=== PATIENT | female | born 1930 | race Caucasian/White ===

== ENCOUNTER 2016-06-12 10:16 | Day surgery (SDC) | payer MEDICARE ==
--- NOTE | 2016-06-11 13:14 | PREOPHP ---
DATE OF ADMISSION: 06/04/2016 REASON FOR ADMISSION: The patient is being admitted electively tomorrow, 06/12/2016, by Dr. Dayron taveras for left foot surgery. HISTORY OF PRESENT ILLNESS: This 86-year-old female has an ulcer on her left foot over the first MT P joint. The area is infected and Dr. Hassan is going to perform an incision and drainage of the ar ea. The patient denies any chest pain, shortness of breath. CURRENT MEDICATIONS: Include the followin. Aspirin 81 mg a day, which was discontinued preoperatively. 2. Centrum Silver. 3. Doxazosin 1 mg at bedtime daily. 4. Ferrous sulfate 325 mg 3 times a day. 5. Omeprazole 40 mg a day. 6. Plendil 5 mg twice a day. 7. Glimepiride 1 mg once a day. 8. Metformin 500 mg 2 tablets twice a day. 9. Losartan HCT 100/25 daily. 10. Atorvastatin 20 mg a day. PAST MEDICAL HISTORY: Remarkable for hypertension, hyperlipidemia, type 2 diabetes mellitus, left b reast cancer status post lumpectomy, radiation and was on tamoxifen, but she stopped that. She has an iron deficiency anemia with Guaiac negative stool. She is on oral iron therapy. Left first foot MTP joint ulcer infection. ALLERGIES: PENICILLIN. PAST SURGICAL HISTORY: Bunionectomy, foot neuroma resection, left breast lumpectomy in June 2011. FAMILY HISTORY: Father , coronary artery disease. Mother , hypertension and conges tive heart failure. SOCIAL HISTORY: The patient does not smoke. She does drink alcohol socially. REVIEW OF SYSTEMS: CONSTITUTIONAL: No chills, no weight gain, no loss of appetite, no fever, no weakness, no weight lo ss, no fatigue. OPHTHALMOLOGIC: Negative. EARS, NOSE AND THROAT: Negative. CARDIORESPIRATORY: She denies any exertional chest pain, chest pressure, cough. She has no ankle s welling. GASTROINTESTINAL: She denies any indigestion, change in bowel habits. She denies any blood in her stools or black stools. Her bowel habits have been stable. NEUROLOGIC: Negative. UROLOGIC: Negative. PHYSICAL EXAMINATION: GENERAL: At this time reveals a well-developed female in no apparent distress. VITAL SIGNS: Temperature 97.3, blood pressure 130/70, heart rate 92. HEENT: Head normocephalic. EYES: Extraocular muscles intact. NOSE AND MOUTH: Normal. NECK: Supple. No neck vein distention. LUNGS: Clear to auscultation. HEART: Regular rhythm. No murmurs, gallops or rubs. ABDOMEN: Soft, nontender, no masses or megaly. EXTREMITIES: There is no peripheral edema. The left foot, she has a scabbed lesion with some drain age and erythema over the first MTP joint of her left foot. IMPRESSION: This patient is cleared for surgery. She does have an iron deficiency anemia. She flanagan s not have any history of GI bleeding. Her stool for occult blood was negative. She is on oral iro n; however, her blood count is not increasing. She may need to get IV iron after she has her surger y on her left foot. She may also need a complete GI workup. I will follow the patient along with y ou medically. Dictated By: GENARO SEPULVEDA MD, ND/YAHAIRA Conf#: [id number] DID#: [id number]
[~2016-06-12] VITALS: Ht 165.1 cm; Wt 75.2 kg
[2016-06-12] VITALS (14 sets, daily range): BP systolic 136–167; BP diastolic 58–92; PULSE 83–93; RESP 11–23; Ht 165.1 cm; Wt 75.2 kg
[2016-06-12] MEDS ORDERED: LOSA1TAB20 PO (10:54)
[2016-06-12] MEDS ORDERED: ATOR20TA38 PO (10:55)
[2016-06-12] MEDS ORDERED: ASCO500C7 PO (10:57)
[2016-06-12] MEDS ORDERED: METF-382 PO (10:57)
[2016-06-12] MEDS ORDERED: FER325 PO (10:59)
[2016-06-12] MEDS ORDERED: OMEP40CA6 PO (10:59)
[2016-06-12] MEDS ORDERED: FELO5TAB35 PO (10:59)
--- NOTE | 2016-06-12 11:20 | HPN ---
Date/Time of Note Date/Time of Note DATE: 06/12/16 TIME: 11:20 Interval H&P Admission Note Pt. seen H&P reviewed: No system changes TYE ANTHONY DPM Jun 12, 2016 11:20
[2016-06-12] MEDS ORDERED: BUPIVACAINE 0.5% (SDV) 30 ML INJ ONE (11:46)
[2016-06-12] MEDS ORDERED: POLYMYXIN/BACITRACIN 1L IRRIG ONE (11:46)
[2016-06-12] MEDS ORDERED: PROPOFOL 20 ML ONE (11:58)
[2016-06-12] MEDS ORDERED: CLINDAMYCIN 600 MG/D5W (PMX) 50 ML IVPB ONE (12:01)
[2016-06-12] MEDS ORDERED: LIDOCAINE 1% (STERILE-PAK) 30 ML INJ ONE (12:08)
[2016-06-12] MEDS ORDERED: LIDOCAINE 1% (MPF) 30 ML INJ INJ ONE (12:22)
[2016-06-12] MEDS ORDERED: LIDOCAINE 2% (MDV) 20 ML INJ INJ ONE (12:22)
[2016-06-12] MEDS ORDERED: BACITRACIN 50000 UNITS INJ IRR ONE (12:23)
[2016-06-12] MEDS ORDERED: FENTAnyl 50 MCG/ML VIAL IV PRN (13:00)
[2016-06-12] MEDS ORDERED: OXYCODONE/ACETAMINOPHEN (5/325) TAB PO PRN (13:00)
[2016-06-12] MEDS ORDERED: HYDROmorphONE (0.2 MG/ML) 10ML SYG IV PRN ×2 (13:00)
[2016-06-12] MEDS ORDERED: DIPHENHYDRAMINE 50 MG INJ IV PRN (13:00)
[2016-06-12] MEDS ORDERED: ONDANSETRON 4 MG INJ IV PRN (13:00)
[2016-06-12] MEDS ORDERED: ALBUTEROL 0.5% (NEB) 2.5 MG/0.5 ML AMP INH ONE (13:00)
[2016-06-12] MEDS ORDERED: MEPERIDINE 25 MG INJ IV PRN (13:00)
[2016-06-12] MEDS ORDERED: METOCLOPRAMIDE 10 MG INJ IV PRN (13:00)
[2016-06-12] MEDS ORDERED: HYDROCODONE/APAP (10/325) TAB PO PRN (13:30)
--- NOTE | 2016-06-12 21:28 | RADRPT ---
PROCEDURE: XR Left Foot. CLINICAL INDICATION: Left foot pain. Left foot ulcer. TECHNIQUE: Three views. Frontal, lateral, and oblique. COMPARISON: 04/27/2016. FINDINGS: There is no fracture or dislocation. There is a small region of lysis of the medial aspect of the first metatarsal distally which may ind icate osteomyelitis. There is no other lytic lesion. Well corticated erosion of the medial aspect of the proximal articular surface of the first proximal phalanx, once again noted. The articular surfaces are otherwise intact. There is no lytic or blastic lesion. There is no radiopaque foreign body. IMPRESSION: 1. Small region of lysis of the medial aspect of the first metatarsal distally which may indicate o steomyelitis. 2. A well corticated erosion of the medial aspect of the proximal articular surface of the first pr oximal phalanx is once again noted which may indicate gout. 3. No other new abnormality. RPTAT: QQ .Ed Pierre MD, MD Date Time Electronically viewed and signed by .Ed Pierre MD, on 06/12/2016 21:28 .R/
--- NOTE | 2016-06-13 16:50 | OPR ---
Date/Time of Note Date/Time of Note DATE: 06/13/16 TIME: 16:49 Operative Report Procedure Date: Jun 12, 2016 Preoperative Diagnosis Open wound left foot Severe bunion left foot Pain left foot Postoperative Diagnosis Open wound left foot Severe bunion left foot Pain left foot Operation Performed Surgical debridement of left foot first MPJ Excision of chronic open wound of left foot Bone biopsy left foot Joint debridement left first MPJ Surgeon: TYE ANTHONY DPM Anesthesia: MAC Estimated Blood Loss: minimal Specimens Bone tissue culture Wound culture Specimen including open chronic wound Complications: None Pt Condition Post Procedure: stable Disposition: PACU Indications There is a pleasant 86-year-old female patient has been suffering with a chronic open wound of the left foot at the first MPJ for several months. The condition has gotten worse. She was seen at the amputation prevention center and her condition was surgical debridement with exploration of the first metatarsal phalangeal joint including bone biopsy to rule out osteomyelitis. Risks and complications of this type surgery was discussed patient in great detail. Recent complication discussed, include but are not limited to postoperative infection, failure of surgery to correct the problem, need for additional surgical procedures, deep venous thrombosis, limb loss and loss of life. No guarantee or warranty was given or implied as the optimal procedure either in verbal or written form. Informed consent was signed, obtained and placed in the chart. Procedure Description The patient was seen in the preoperative area. Proposed surgery was discussed with patient in great detail. Risks and complications were discussed with patient. An informed consent was obtained. All questions were answered. The patient was then taken to the operating room and was placed on the operating table in supine position. All bony prominences were padded properly. A timeout was called by the circulating nurse and agreed upon by all members of the operating room. The patient was placed under IV sedation and I injected the left foot with 15 cc of a 2% lidocaine plain and 0.5% Marcaine plain solution. The left foot was scrubbed, prepped and draped in the usual aseptic manner. Attention was directed to the left foot first MPJ. Open wound noted. Two semielliptical incisions were made surrounding the wound using a #15 blade. The wound was excised completely. Next, there was significant drainage from the first MPJ with white exudate which appeared to be chalky in nature. Some of this exudate was cultured. Next, bone was removed and cultured as well. The wound was flushed with copious amounts of sterile normal saline. Further amounts of white exudate was removed and passed to the back table. Next, subcutaneous layer was closed using 3-0 Vicryl suture and the skin was closed using 2-0 nylon in simple suture technique. Sterile dressing was applied to the left foot. The patient tolerated the procedure and anesthesia well. She was transferred to recovery room with vital signs stable and vascular status intact to the left lower extremity. Patient will be sent home after postoperative monitoring. Postoperative orders have been written. Partial weightbearing with postop shoe and walker allowed. Patient will be seen in the clinic in 1 week. Prescription for pain medication was submitted to the pharmacy. TYE ANTHONY DPM Jun 13, 2016 16:50
== END 2016-06-12 14:45 | disposition home or self-care (01) ==
LOC: SDS 10:16
PROVIDERS: ATTEND Podiatrist Foot & Ankle Surgery
DX: L97.529 Non-pressure chronic ulcer of other part of left foot with unspecified severity (principal); M89.8X7 Other specified disorders of bone, ankle and foot; M21.612 Bunion of left foot; I10 Essential (primary) hypertension; E78.5 Hyperlipidemia, unspecified; E11.9 Type 2 diabetes mellitus without complications; D50.9 Iron deficiency anemia, unspecified
CPT/HCPCS: 82962; 87070; 87102; 87116; 88304; 88311

== ENCOUNTER 2018-09-23 05:22 | Inpatient (IN) | payer MEDICARE, OTHER ==
[2018-09-23] VITALS (17 sets, daily range): BP systolic 106–145; BP diastolic 56–115; PULSE 93–105; RESP 16–25; Ht 165.1 cm; Wt 76.0 kg
[~2018-09-23] VITALS: Ht 165.1 cm; Wt 76.0 kg
[~2018-09-23 05:22] MED LIST: ASCO500C7 PO; ATOR20TA38 PO; FELO5TAB35 PO; FER325 PO; LOSA1TAB25 PO; METF500T24 PO; OMEP40CA6 PO
[2018-09-23] MEDS ORDERED: NITROGLYCERIN 2% 1 GM OINT PKT TD STA (06:34)
[2018-09-23] MEDS ORDERED: D10/0.45% NACL + KCL 40 MEQ 1,000 ML IV SCH (06:36)
[2018-09-23] MEDS ORDERED: DEXTROSE 10%/0.45% NACL 1,000 ML IV SCH (06:36)
[2018-09-23] MEDS ORDERED: SOD CHLORIDE 0.9% 1,000 ML IV SCH (06:36)
[2018-09-23] MEDS ORDERED: D10/0.45% NACL + KCL 30 MEQ 1,000 ML IV SCH (06:36)
[2018-09-23] MEDS ORDERED: NS + KCL 40 MEQ 1,000 ML IV SCH (06:36)
[2018-09-23] MEDS ORDERED: NS + KCL 30 MEQ 1,000 ML IV SCH (06:36)
[2018-09-23] MEDS ORDERED: FUROSEMIDE 40 MG INJ IV ONE (07:00)
[2018-09-23] MEDS ORDERED: NITROGLYCERIN (SL) 0.4 MG TAB SL PRN (07:00)
[2018-09-23] MEDS ORDERED: LACTATED RINGER'S 750 ML IV ONE (07:00)
[2018-09-23] MEDS ORDERED: INSULIN REGULAR, HUMAN 100 UNIT in SOD CHLORIDE 0.9% 100 ML IV SCH ×2 (07:00)
[2018-09-23] MEDS ORDERED: DEXTROSE 50% 50 ML SYRINGE IV PRN ×4 (07:00→13:30)
--- NOTE | 2018-09-23 08:23 | ERD ---
ER Documentation Chief Complaint Chief Complaint [id number],from home,SOB,CP HPI Patient is an 88-year-old female with hypertension and diabetes who presents with shortness of breath. The patient also has chest pain. She started with symptoms about 1 month ago but yesterday and today the shortness of breath was much worse. She gets short of breath with minimal exertion. She has midsternal chest pain which she describes as a dull pain which is constant. She was given aspirin and nitro in by paramedics and she was brought in by ambulance. Upon review of old medical records this is the patient's first visit to the emergency department. Her primary doctor is Dr. Portillo. 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 ROS All systems reviewed and are negative except as per history of present illness. Medications Home Meds Reported Medications Omeprazole* (Omeprazole*) 40 Mg Capsule.dr, 40 MG PO DAILY, #30 CAP 06/12/16 Ferrous Sulfate* (Ferrous Sulfate*) 325 Mg Tabec, 325 MG PO DAILY, TAB 06/12/16 Felodipine* (Felodipine*) 5 Mg Tab.sr.24h, 5 MG PO DAILY, TAB.SA 06/12/16 Ascorbic Acid* (Vitamin C*) 500 Mg Capsule.sa, 500 MG PO DAILY, CAP 06/12/16 Metformin Hcl* (Metformin Hcl*) 500 Mg Tablet, 2000 MG PO WITH BREAKFAST DINNE, #30 TAB 06/12/16 Atorvastatin Calcium* (Atorvastatin Calcium*) 20 Mg Tablet, 20 MG PO QHS, #30 TAB 06/12/16 Losartan-Hydrochlorothiazide (Losartan-HCTZ) 100-25 Mg Tab, 1 TAB PO DAILY, TAB 06/12/16 Allergies Allergies: Coded Allergies: Penicillins (Verified Allergy, Severe, SWELLING, 06/12/16) PMhx/Soc History of Surgery: Yes (LEFT FOOT BINIONECTOMY, LEFT BREAST LUMPECTOMY) Anesthesia Reaction: No Hx Neurological Disorder: No Hx Respiratory Disorders: No Hx Cardiac Disorders: Yes (HTN,HLP) Hx Psychiatric Problems: No Hx Miscellaneous Medical Probl: Yes (LEFT FOOT ULCER 1ST MTP JOINT) Hx Alcohol Use: Yes (OCCASIONAL) Hx Substance Use: No Hx Tobacco Use: No Smoking Status: Never smoker FmHx Family History: coronary disease Physical Exam Vitals Vital Signs Date Temp Pulse Resp B/P (MAP) Pulse Ox O2 O2 Flow FiO2 Time Delivery Rate 09/23/18 89 20 116/58 94 High Flow 07:30 (77) 09/23/18 97.4 81 19 122/59 93 Non 15.0 06:30 (80) Rebreather 09/23/18 Non 12.0 05:25 Rebreather 09/23/18 Non 12 05:25 Rebreather 09/23/18 97.5 89 19 110/51 94 05:24 (70) Physical Exam Const: No acute distress Head: Atraumatic Eyes: Normal Conjunctiva ENT: Normal External Ears, Nose and Mouth. Neck: Full range of motion. No meningismus. Resp: Crackles in the bases bilaterally Cardio: Regular rate and rhythm, no murmurs Abd: Soft, non tender, non distended. Normal bowel sounds Skin: No petechiae or rashes Back: No midline or flank tenderness Ext: 1+ pitting edema bilaterally Neur: Awake and alert Psych: Normal Mood and Affect Result Diagram: 09/23/1834 09/23/1834 Results 24 hrs Laboratory Tests Test 09/23/18 05:28 09/23/18 05:34 09/23/18 06:25 09/23/18 07:35 Bedside Glucose 486 mg/dL 411 mg/dL White Blood Count 11.0 10^3/ul Red Blood Count 3.43 10^6/ul Hemoglobin 9.9 g/dl Hematocrit 30.7 % Mean Corpuscular 89.5 fl Volume Mean Corpuscular 28.9 pg Hemoglobin Mean Corpuscular 32.2 g/dl Hemoglobin Concent Red Cell 13.2 % Distribution Width Platelet Count 267 10^3/UL Mean Platelet 12.1 fl Volume Immature 0.500 % Granulocytes % Neutrophils % 67.4 % Lymphocytes % 23.6 % Monocytes % 5.7 % Eosinophils % 2.4 % Basophils % 0.4 % Nucleated Red Blood 0.0 /100WBC Cells % Immature 0.050 10^3/ul Granulocytes # Neutrophils # 7.4 10^3/ul Lymphocytes # 2.6 10^3/ul Monocytes # 0.6 10^3/ul Eosinophils # 0.3 10^3/ul Basophils # 0.0 10^3/ul Nucleated Red Blood 0.0 10^3/ul Cells # Sodium Level 135 mmol/L Potassium Level 4.8 mmol/L Chloride Level 103 mmol/L Carbon Dioxide 16 mmol/L Level Anion Gap 16 Blood Urea Nitrogen 54 mg/dl Creatinine 1.69 mg/dl Est Glomerular mL/min Filtrat Rate mL/min Glucose Level 483 mg/dl Hemoglobin A1c 7.8 % Calcium Level 9.1 mg/dl Total Bilirubin 0.6 mg/dl Direct Bilirubin 0.00 mg/dl Indirect Bilirubin 0.6 mg/dl Aspartate Amino 131 IU/L Transf (AST/SGOT) Alanine 135 IU/L Aminotransferase (A LT/SGPT) Alkaline 134 IU/L Phosphatase Troponin I 0.058 ng/ml B-Type Natriuretic 1450 PG/ML Peptide Total Protein 6.8 g/dl Albumin 4.0 g/dl Globulin 2.80 g/dl Albumin/Globulin 1.42 Ratio Lipase 99 U/L Prothrombin Time 13.6 Sec Prothrombin Time 1.1 Ratio INR International 1.03 Normalized Ratio Activated 20.0 Sec Partial Thromboplas t Time Current Medications Medications Dose Sig/Ivy Start Time Status Last (Trade) Ordered Route PRN Stop Time Admin Dose Reason Admin Furosemide 40 mg ONCE ONCE 09/23/18 DC 09/23/18 (Lasix) IV 07:00 06:47 09/23/18 07:01 1 inch ONCE STAT 09/23/18 DC 09/23/18 Nitroglycerin TD 06:34 06:47 09/23/18 06:36 (Nitroglyceri n 2% Oint) 1 tab Q5M UP TO 3 09/23/18 Nitroglycerin DOSES PRN 07:00 SL .CHEST (Nitroglyceri PAIN n (Sl Tab) 0.4 Mg) Potassium 1,000 ml @ Q0M IV 09/23/18 Chloride/Sodi 0 mls/hr 06:36 um Chloride Potassium 1,000 ml @ Q0M IV 09/23/18 Chloride/Dext 0 mls/hr 06:36 carlos/ Sod Cl Potassium 1,000 ml @ Q0M IV 09/23/18 Chloride/Sodi 0 mls/hr 06:36 um Chloride Potassium 1,000 ml @ Q0M IV 09/23/18 Chloride/Dext 0 mls/hr 06:36 carlos/ Sod Cl Sodium 1,000 ml @ Q0M IV 09/23/18 Chloride 0 mls/hr 06:36 1,000 ml @ Q0M IV 09/23/18 Dextrose/Sodi 0 mls/hr 06:36 um Chloride Insulin 101 ml @ ER DKA 09/23/18 Human 7.58 mls/hr PROTOCOL IV 07:00 Regular 100 unit/ Sodium Chloride Lactated 750 ml @ ONCE ONCE 09/23/18 DC 09/23/18 Ringer's 750 mls/hr IV 07:00 07:13 09/23/18 07:59 HYPOGLYCEM 09/23/18 Miscellaneous HYPOGLYCEMIA PROTOCOL PRN 07:00 TREATMENT XX Information .HYPOGLYCEMIA (* PROTOCOL Miscellaneous Pharmacy Order) Dextrose 50 ml Q15M PRN 09/23/18 (D50w IV 07:00 Syringe) .DECREASED GLUCOSE Dextrose 25 ml Q15M PRN 09/23/18 (D50w IV 07:00 Syringe) .DECREASED GLUCOSE Procedures/MDM Chest X-ray 1V Interpreted by me: Soft Tissue: No acute abnormalities Bones: No acute abnormalities Mediastinum/Cardiac Silhouette/Lungs: Pulmonary edema EKG read by me: Rate/Rhythm: Regular rate and rhythm at a normal rate Intervals: Normal Impression: ST depressions in the inferior and lateral leads concerning for ischemia Patient is a 88-year-old female who presents with chest pain and shortness of breath. She had an abnormal EKG which is concerning for ischemia. She was given aspirin and nitroglycerin as well as Lasix. She was also found to have glucose of 483 with a low bicarb of 16 and an elevated anion gap concerning for diabetic ketoacidosis. I spoke with Dr. Portillo who will admit the patient to a intensive care unit bed. The patient will also have a cardiology consult. Initial troponin is within normal limits. She was started on the DKA protocol with insulin drip. I am concerned about giving her fluids however given her pulmonary edema. She was placed on high flow nasal cannula oxygen as well to help with PEEP effect as well as oxygenation. Critical Care: Time: 35 minutes excluding all billable procedures. Treatments/Evaluations: Close monitoring and treatment of unstable vital signs, cardiorespiratory, and neurologic status, while maintaining tight balance of fluid, respiratory, and cardiac interventions. Departure Diagnosis: Primary Impression: DKA (diabetic ketoacidoses) Diabetes mellitus type: other specified (including HARISH) Diabetes mellitus complication detail: without coma Qualified Codes: E13.10 - Other spe cified diabetes mellitus with ketoacidosis without coma Additional Impressions: Shortness of breath Pulmonary edema Chronicity: acute Qualified Codes: J81.0 - Acute pulmonary edema Chest pain Chest pain type: unspecified Qualified Codes: R07.9 - Chest pain, unspecified Condition: Critical CINTHIA CAUSEY MD Sep 23, 2018 08:23
[2018-09-23] MEDS ORDERED: LOSA1TAB25 PO (09:45)
[2018-09-23] MEDS ORDERED: ATOR20TA38 PO (09:45)
[2018-09-23] MEDS ORDERED: METF500T24 PO (09:46)
[2018-09-23] MEDS ORDERED: ASCO500C7 PO (09:47)
[2018-09-23] MEDS ORDERED: FER325 PO (09:48)
[2018-09-23] MEDS ORDERED: OMEP40CA6 PO (09:48)
[2018-09-23] MEDS ORDERED: FELO5TAB35 PO (09:48)
[2018-09-23] MEDS ORDERED: INSULIN LISPRO 100 UNIT/ML VIAL SC ONE (10:30)
[2018-09-23] MEDS ORDERED: ACCU-CHEK XX ONE (10:30)
--- NOTE | 2018-09-23 12:00 | CONS ---
Assessment/Plan Cardiology Heart Failure Type: Acute Assessment/Plan Assessment/Plan (Daily) Impression and Recommendations: # SOB- consistent with acute CHF. Possible systolic in nature. # cough # CP although not tytpical pt does have RF with her age, DM, HTN, HL. Probable ACS with mildly elevated troponin # CHF based on hx and exam # DM OOC with component of DKA # CYRUS ? CKD # anemia -not clear if this is new # HTN # HL # advanced age >> iv lasix for diuresis watching renal function >> Lovenox >> ASA, high dose statin, low dose BB >> Echo >> trend troponin >> o2 >> nitropaste for now >> further recs including possible angio based on hospital course, renal function, echo findings, and anemia status > will follow Consultation Date/Type/Reason Admit Date/Time Date of Consultation: Sep 23, 2018 Type of Consult Cardiology Reason for Consultation SOB Date/Time of Note DATE: 09/23/18 TIME: 11:50 Hx of Present Illness This is a pleasant 88 yo woman with a hx/o DM and HTN and HL without prior cardiac history. She apparently started feeling very weak and SOB today and presented to the ED with SOB, hypoxia, findings c/w CHF. She has had increased edema in her legs. There is vague discomfort in her chest and epigastric area. She is found to be mildly anemic. She is more comfortable at the moment but still with SOB. Her BP has been stable but she is in DKA based on her labs. She states she has been compliant with her meds . Constitutional: other (weak) Eyes: no complaints ENT: no complaints Respiratory: cough, shortness of breath Cardiovascular: chest pain, edema Gastrointestinal: no complaints Genitourinary: no complaints Musculoskeletal: no complaints, back pain Skin: no complaints Neurologic: confusion Endocrine: no complaints Lymphatic: no complaints Psychological: anxiety Past Medical History Home Meds Reported Medications Omeprazole* (Omeprazole*) 40 Mg Capsule.dr, 40 MG PO DAILY, #30 CAP 09/23/18 Ferrous Sulfate* (Ferrous Sulfate*) 325 Mg Tabec, 325 MG PO TID, TAB 09/23/18 Felodipine* (Felodipine*) 5 Mg Tab.sr.24h, 5 MG PO BID, TAB.SA 09/23/18 Ascorbic Acid* (Vitamin C*) 500 Mg Capsule.sa, 500 MG PO DAILY, CAP 09/23/18 Metformin Hcl* (Metformin Hcl*) 500 Mg Tablet, 2000 MG PO WITH BREAKFAST DINNE, #60 TAB 09/23/18 Atorvastatin Calcium* (Atorvastatin Calcium*) 20 Mg Tablet, 20 MG PO QHS, #30 TAB 09/23/18 Losartan-Hydrochlorothiazide (Losartan-HCTZ) 100-25 Mg Tab, 1 TAB PO DAILY, TAB 09/23/18 Discontinued Reported Medications Omeprazole* (Omeprazole*) 40 Mg Capsule.dr, 40 MG PO DAILY, #30 CAP 06/12/16 Ferrous Sulfate* (Ferrous Sulfate*) 325 Mg Tabec, 325 MG PO DAILY, TAB 06/12/16 Felodipine* (Felodipine*) 5 Mg Tab.sr.24h, 5 MG PO DAILY, TAB.SA 06/12/16 Ascorbic Acid* (Vitamin C*) 500 Mg Capsule.sa, 500 MG PO DAILY, CAP 06/12/16 Metformin Hcl* (Metformin Hcl*) 500 Mg Tablet, 2000 MG PO WITH BREAKFAST DINNE, #30 TAB 06/12/16 Atorvastatin Calcium* (Atorvastatin Calcium*) 20 Mg Tablet, 20 MG PO QHS, #30 TAB 06/12/16 Losartan-Hydrochlorothiazide (Losartan-HCTZ) 100-25 Mg Tab, 1 TAB PO DAILY, TAB 06/12/16 Medications Current Medications Nitroglycerin (Nitroglycerin (Sl Tab) 0.4 Mg) 1 tab Q5M UP TO 3 DOSES PRN SL .CHEST PAIN; Start 09/23/18 at 07:00 Potassium Chloride/Sodium Chloride 1,000 ml @ 0 mls/hr Q0M IV ; Start 09/23/18 at 06:36 Potassium Chloride/Dextrose/ Sod Cl 1,000 ml @ 0 mls/hr Q0M IV ; Start 09/23/18 at 06:36 Potassium Chloride/Sodium Chloride 1,000 ml @ 0 mls/hr Q0M IV Last administered on 09/23/18at 08:40; Admin Dose 250 MLS/HR; Start 09/23/18 at 06:36 Potassium Chloride/Dextrose/ Sod Cl 1,000 ml @ 0 mls/hr Q0M IV ; Start 09/23/18 at 06:36 Sodium Chloride 1,000 ml @ 0 mls/hr Q0M IV ; Start 09/23/18 at 06:36 Dextrose/Sodium Chloride 1,000 ml @ 0 mls/hr Q0M IV ; Start 09/23/18 at 06:36 Insulin Human Regular 100 unit/ Sodium Chloride 101 ml @ 7.58 mls/hr ER DKA P ROTOCOL IV Last administered on 09/23/18at 08:42; Admin Dose 7.5 MLS/HR; Start 09/23/18 at 07:00 Miscellaneous Information (* Miscellaneous Pharmacy Order) HYPOGLYCEMIA TREATMENT HYPOGLYCEM PROTOCOL PRN XX .HYPOGLYCEMIA PROTOCOL; Start 09/23/18 at 07:00 Dextrose (D50w Syringe) 50 ml Q15M PRN IV .DECREASED GLUCOSE; Start 09/23/18 at 07:00 Dextrose (D50w Syringe) 25 ml Q15M PRN IV .DECREASED GLUCOSE; Start 09/23/18 at 07:00 Allergies: Coded Allergies: Penicillins (Verified Allergy, Severe, SWELLING, 09/23/18) Family History Significant Family History: no pertinent family hx Social History Alcohol Use: none Smoking Status: Never smoker Drug Use: none Exam/Review of Systems Vital Signs Vitals Vital Signs Date Temp Pulse Resp B/P (MAP) Pulse Ox O2 O2 Flow FiO2 Time Delivery Rate 09/23/18 95 24 128/67 88 High Flow 10:46 (87) 09/23/18 100 10:33 09/23/18 97.4 15.0 06:30 Exam Constitutional: alert, oriented, well developed Psych: anxiety Head: normocephalic Eyes: nl conjunctiva ENMT: nl external ears & nose Neck: supple, jvd (10cm) Respiratory: crackles/rales (minimal rales at bases) Cardiovascular: other (regular but tachy) Gastrointestinal: soft Musculoskeletal: nl extremities to inspection Extremities: normal pulses 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 Skin: nl turgor Labs Result Diagram: 09/23/18 0534 09/23/18 1049 Results 24hrs Laboratory Tests Test 09/23/18 05:28 09/23/18 05:34 09/23/18 06:25 09/23/18 07:35 Bedside Glucose 486 *H 411 *H White Blood 11.0 H Count Red Blood Count 3.43 L Hemoglobin 9.9 L Hematocrit 30.7 L Mean Corpuscular 89.5 Volume Mean Corpuscular 28.9 L Hemoglobin Mean Corpuscular 32.2 Hemoglobin Pili nt Red Cell 13.2 Distribution Width Platelet Count 267 Mean Platelet 12.1 H Volume Immature 0.500 H Granulocytes % Neutrophils % 67.4 Lymphocytes % 23.6 Monocytes % 5.7 Eosinophils % 2.4 Basophils % 0.4 Nucleated Red 0.0 Blood Cells % Immature 0.050 H Granulocytes # Neutrophils # 7.4 Lymphocytes # 2.6 Monocytes # 0.6 Eosinophils # 0.3 Basophils # 0.0 Nucleated Red 0.0 Blood Cells # Sodium Level 135 Potassium Level 4.8 Chloride Level 103 Carbon Dioxide 16 L Level Anion Gap 16 H Blood Urea 54 H Nitrogen Creatinine 1.69 H Est Glomerular Filtrat Rate mL/min Glucose Level 483 *H Hemoglobin A1c 7.8 H Calcium Level 9.1 Total Bilirubin 0.6 Direct Bilirubin 0.00 Indirect 0.6 Bilirubin Aspartate Amino 131 H Transf (AST/SGOT ) Alanine 135 H Aminotransferase (ALT/SGPT) Alkaline 134 H Phosphatase Troponin I 0.058 B-Type 1450 H Natriuretic Peptide Total Protein 6.8 Albumin 4.0 Globulin 2.80 Albumin/Globulin 1.42 Ratio Lipase 99 Prothrombin Time 13.6 Prothrombin Time 1.1 Ratio INR 1.03 International Normalized Ratio Activated 20.0 L Partial Thrombop last Time Test 09/23/18 08:29 09/23/18 08:36 09/23/18 08:38 09/23/18 09:32 Sodium Level 135 Potassium Level 5.0 Chloride Level 101 Carbon Dioxide 23 Level Anion Gap 11 Blood Urea 55 H Nitrogen Creatinine 1.64 H Est Glomerular Filtrat Rate mL/min Glucose Level 436 *H Calcium Level 9.2 Phosphorus Level 4.5 Magnesium Level 2.0 Blood Gas Blood venous Specimen Source Arterial Blood 09/23/2018 8:46: Date Drawn 30 AM Arterial Blood VENOUS LINE Gas Puncture Site Nash Test N/A Venous Blood pH 7.404 Venous Blood 32.4 L pCO2 (Temp Corrected) Venous Blood pO2 40.2 H (Temp Corrected) Venous Blood 19.8 L HCO3 Venous Blood 75.0 Oxygen Saturation Venous Blood -4.1 Base Excess Venous Blood 11.4 Total Hemoglobin Venous Blood 74.9 Oxyhemoglobin Venous Blood 0.1 Methemoglobin Carboxyhemoglobi 0 n Blood Gas 37.0 Temperature Blood Gas HFNC Modality FiO2 100.0 Blood Gas RT Notified Whom Blood Gas 09/23/2018 8:57: Notified Time 09 AM Bedside Glucose 410 *H Urine Color YELLOW Urine Clarity CLEAR Urine pH 5.0 Urine Specific 1.011 [place] Urine Ketones NEGATIVE Urine Nitrite NEGATIVE Urine Bilirubin NEGATIVE Urine NEGATIVE Urobilinogen Urine Leukocyte 2+ H Esterase Urine 0 Microscopic RBC Urine 9 H Microscopic WBC Urine Hemoglobin NEGATIVE Urine Glucose 1+ H Urine Total NEGATIVE Protein Test 09/23/18 09:33 09/23/18 10:15 09/23/18 10:36 09/23/18 10:49 Bedside Glucose 404 *H 365 H Blood Gas Blood venous Specimen Source Arterial Blood 09/23/2018 10:45 Date Drawn :17 AM Arterial Blood VENOUS LINE Gas Puncture Site Nash Test N/A Venous Blood pH 7.375 Venous Blood 33.8 L pCO2 (Temp Corrected) Venous Blood pO2 32.5 H (Temp Corrected) Venous Blood 19.3 L HCO3 Venous Blood 59.7 Oxygen Saturation Venous Blood -5.1 L Base Excess Venous Blood 11.5 Total Hemoglobin Venous Blood 59.3 Oxyhemoglobin Venous Blood 0.3 Methemoglobin Carboxyhemoglobi 0.3 n Blood Gas 37.0 Temperature Blood Gas HFNC Modality FiO2 100.0 Blood Gas TM Notified Whom Blood Gas 09/23/2018 10:56 Notified Time :09 AM Sodium Level 136 Potassium Level 4.5 Chloride Level 103 Carbon Dioxide 21 Level Anion Gap 12 Blood Urea 51 H Nitrogen Creatinine 1.62 H Est Glomerular Filtrat Rate mL/min Glucose Level 360 H Calcium Level 9.3 Phosphorus Level 3.8 Magnesium Level 2.0 Creatine Kinase 66 Creatine Kinase 3.4 Index Creatinine 2.23 Kinase MB (Mass) Troponin I 0.631 *H Test 09/23/18 11:39 Bedside Glucose 337 H Medications Medications Current Medications Nitroglycerin (Nitroglycerin (Sl Tab) 0.4 Mg) 1 tab Q5M UP TO 3 DOSES PRN SL .CHEST PAIN; Start 09/23/18 at 07:00 Potassium Chloride/Sodium Chloride 1,000 ml @ 0 mls/hr Q0M IV ; Start 09/23/18 at 06:36 Potassium Chloride/Dextrose/ Sod Cl 1,000 ml @ 0 mls/hr Q0M IV ; Start 09/23/18 at 06:36 Potassium Chloride/Sodium Chloride 1,000 ml @ 0 mls/hr Q0M IV Last administered on 09/23/18at 08:40; Admin Dose 250 MLS/HR; Start 09/23/18 at 06:36 Potassium Chloride/Dextrose/ Sod Cl 1,000 ml @ 0 mls/hr Q0M IV ; Start 09/23/18 at 06:36 Sodium Chloride 1,000 ml @ 0 mls/hr Q0M IV ; Start 09/23/18 at 06:36 Dextrose/Sodium Chloride 1,000 ml @ 0 mls/hr Q0M IV ; Start 09/23/18 at 06:36 Insulin Human Regular 100 unit/ Sodium Chloride 101 ml @ 7.58 mls/hr ER DKA PROTOCOL IV Last administered on 09/23/18at 08:42; Admin Dose 7.5 MLS/HR; Start 09/23/18 at 07:00 Miscellaneous Information (* Miscellaneous Pharmacy Order) HYPOGLYCEMIA TREATMENT HYPOGLYCEM PROTOCOL PRN XX .HYPOGLYCEMIA PROTOCOL; Start 09/23/18 at 07:00 Dextrose (D50w Syringe) 50 ml Q15M PRN IV .DECREASED GLUCOSE; Start 09/23/18 at 07:00 Dextrose (D50w Syringe) 25 ml Q15M PRN IV .DECREASED GLUCOSE; Start 09/23/18 at 07:00 NIANA MANN MD Sep 23, 2018 12:00
--- NOTE | 2018-09-23 12:56 | HP ---
Date/Time of Note Date/Time of Note DATE: 09/23/18 TIME: 12:55 Assessment/Plan VTE Prophylaxis Pharmacological prophylaxis: LMWH Lines/Catheters IV Catheter Type (from Nrsg): Peripheral IV Assessment/Plan Assessment/Plan H and P dict pt admit with chest pain, cough, sob and evid chf with inc troponin rev with anthony, yamilet Romano, course to determine aggressiveness, anemia has inc and mild renal insuff noted likely pre renal. Result Diagram: 09/23/18 0534 09/23/18 1049 Results 24hrs Laboratory Tests Test 09/23/18 05:28 09/23/18 05:34 09/23/18 06:25 09/23/18 07:35 Bedside Glucose 486 *H 411 *H White Blood 11.0 H Count Red Blood Count 3.43 L Hemoglobin 9.9 L Hematocrit 30.7 L Mean Corpuscular 89.5 Volume Mean Corpuscular 28.9 L Hemoglobin Mean Corpuscular 32.2 Hemoglobin Pili nt Red Cell 13.2 Distribution Width Platelet Count 267 Mean Platelet 12.1 H Volume Immature 0.500 H Granulocytes % Neutrophils % 67.4 Lymphocytes % 23.6 Monocytes % 5.7 Eosinophils % 2.4 Basophils % 0.4 Nucleated Red 0.0 Blood Cells % Immature 0.050 H Granulocytes # Neutrophils # 7.4 Lymphocytes # 2.6 Monocytes # 0.6 Eosinophils # 0.3 Basophils # 0.0 Nucleated Red 0.0 Blood Cells # Sodium Level 135 Potassium Level 4.8 Chloride Level 103 Carbon Dioxide 16 L Level Anion Gap 16 H Blood Urea 54 H Nitrogen Creatinine 1.69 H Est Glomerular Filtrat Rate mL/min Glucose Level 483 *H Hemoglobin A1c 7.8 H Calcium Level 9.1 Total Bilirubin 0.6 Direct Bilirubin 0.00 Indirect 0.6 Bilirubin Aspartate Amino 131 H Transf (AST/SGOT ) Alanine 135 H Aminotransferase (ALT/SGPT) Alkaline 134 H Phosphatase Troponin I 0.058 B-Type 1450 H Natriuretic Peptide Total Protein 6.8 Albumin 4.0 Globulin 2.80 Albumin/Globulin 1.42 Ratio Lipase 99 Prothrombin Time 13.6 Prothrombin Time 1.1 Ratio INR 1.03 International Normalized Ratio Activated 20.0 L Partial Thrombop last Time Test 09/23/18 08:29 09/23/18 08:36 09/23/18 08:38 09/23/18 09:32 Sodium Level 135 Potassium Level 5.0 Chloride Level 101 Carbon Dioxide 23 Level Anion Gap 11 Blood Urea 55 H Nitrogen Creatinine 1.64 H Est Glomerular Filtrat Rate mL/min Glucose Level 436 *H Calcium Level 9.2 Phosphorus Level 4.5 Magnesium Level 2.0 Blood Gas Blood venous Specimen Source Arterial Blood 09/23/2018 8:46: Date Drawn 30 AM Arterial Blood VENOUS LINE Gas Puncture Site Nash Test N/A Venous Blood pH 7.404 Venous Blood 32.4 L pCO2 (Temp Corrected) Venous Blood pO2 40.2 H (Temp Corrected) Venous Blood 19.8 L HCO3 Venous Blood 75.0 Oxygen Saturation Venous Blood -4.1 Base Excess Venous Blood 11.4 Total Hemoglobin Venous Blood 74.9 Oxyhemoglobin Venous Blood 0.1 Methemoglobin Carboxyhemoglobi 0 n Blood Gas 37.0 Temperature Blood Gas HFNC Modality FiO2 100.0 Blood Gas RT Notified Whom Blood Gas 09/23/2018 8:57: Notified Time 09 AM Bedside Glucose 410 *H Urine Color YELLOW Urine Clarity CLEAR Urine pH 5.0 Urine Specific 1.011 [place] Urine Ketones NEGATIVE Urine Nitrite NEGATIVE Urine Bilirubin NEGATIVE Urine NEGATIVE Urobilinogen Urine Leukocyte 2+ H Esterase Urine 0 Microscopic RBC Urine 9 H Microscopic WBC Urine Hemoglobin NEGATIVE Urine Glucose 1+ H Urine Total NEGATIVE Protein Test 09/23/18 09:33 09/23/18 10:15 09/23/18 10:36 09/23/18 10:49 Bedside Glucose 404 *H 365 H Blood Gas Blood venous Specimen Source Arterial Blood 09/23/2018 10:45 Date Drawn :17 AM Arterial Blood VENOUS LINE Gas Puncture Site Nash Test N/A Venous Blood pH 7.375 Venous Blood 33.8 L pCO2 (Temp Corrected) Venous Blood pO2 32.5 H (Temp Corrected) Venous Blood 19.3 L HCO3 Venous Blood 59.7 Oxygen Saturation Venous Blood -5.1 L Base Excess Venous Blood 11.5 Total Hemoglobin Venous Blood 59.3 Oxyhemoglobin Venous Blood 0.3 Methemoglobin Carboxyhemoglobi 0.3 n Blood Gas 37.0 Temperature Blood Gas HFNC Modality FiO2 100.0 Blood Gas TM Notified Whom Blood Gas 09/23/2018 10:56 Notified Time :09 AM Sodium Level 136 Potassium Level 4.5 Chloride Level 103 Carbon Dioxide 21 Level Anion Gap 12 Blood Urea 51 H Nitrogen Creatinine 1.62 H Est Glomerular Filtrat Rate mL/min Glucose Level 360 H Calcium Level 9.3 Phosphorus Level 3.8 Magnesium Level 2.0 Creatine Kinase 66 Creatine Kinase 3.4 Index Creatinine 2.23 Kinase MB (Mass) Troponin I 0.631 *H Test 09/23/18 11:39 Bedside Glucose 337 H HPI/ROS Admit Date/Time Admit Date/Time PMH/Family/Social Past Medical History Medications Current Medications Furosemide (Lasix) 40 mg BID DIURETICS IV ; Start 09/23/18 at 18:00; Status UNV Atorvastatin Calcium (Lipitor) 80 mg HS PO ; Start 09/23/18 at 21:00; Status UNV Metoprolol Tartrate (Lopressor) 25 mg BID PO ; Start 09/23/18 at 12:30; Status UNV Enoxaparin Sodium (Lovenox) 75 mg Q24H SC ; Start 09/23/18 at 12:30; Status UNV Nitroglycerin (Nitroglycerin 2% Oint) 1 inch Q8 TD ; Start 09/23/18 at 14:00; Status UNV Aspirin (Halfprin) 81 mg DAILY PO ; Start 09/24/18 at 09:00; Status UNV IV Flush (NS 3 ml) 3 ml PER PROTOCOL IV ; Start 09/23/18 at 13:00; Status UNV Lorazepam (Ativan) 0.5 mg Q8H PRN PO .ANXIETY; Start 09/23/18 at 13:00; Status UNV Ondansetron HCl (Zofran Inj) 4 mg Q6H PRN IV NAUSEA/VOMITING; Start 09/23/18 at 13:00; Status UNV Acetaminophen (Tylenol Tab) 650 mg Q6H PRN PO .PAIN 1-3 OR TEMP; Start 09/23/18 at 13:00; Status UNV Zolpidem Tartrate (Ambien) 5 mg QHS PRN PO .INSOMNIA; Start 09/23/18 at 13:00; Status UNV Docusate Sodium (Colace) 100 mg Q12H PRN PO .CONSTIPATION; Start 09/23/18 at 13:00; Status UNV Magnesium Hydroxide (Milk Of Mag) 30 ml DAILY PRN PO .CONSTIPATION; Start 09/23/18 at 13:00; Status UNV Famotidine (Pepcid) 20 mg Q12 PO ; Start 09/23/18 at 21:00; Status UNV Felodipine (Plendil) 5 mg BID PO ; Start 09/23/18 at 21:00; Status UNV Insulin Glargine (Lantus) 10 units ONCE ONCE SC ; Start 09/23/18 at 13:00; Stop 09/23/18 at 13:01; Status UNV Insulin Aspart (Novolog Insulin Pen) NOVOLOG *MILD* ALGORITHM WITH MEALS BEDTIME SC ; Start 09/23/18 at 17:35; Status UNV Miscellaneous Information (* Miscellaneous Pharmacy Order) Discontinue all previ... ONCE ONCE XX ; Start 09/23/18 at 13:00; Stop 09/23/18 at 13:01; Status UNV IV Flush (NS 3 ml) 3 ml PER PROTOCOL IV ; Start 09/23/18 at 13:00; Status UNV Ondansetron HCl (Zofran Inj) 4 mg Q6H PRN IV NAUSEA/VOMITING; Start 09/23/18 at 13:00; Status UNV Acetaminophen (Tylenol Tab) 650 mg Q6H PRN PO .PAIN 1-3 OR TEMP; Start 09/23/18 at 13:00; Status UNV Docusate Sodium (Colace) 100 mg Q12H PRN PO .CONSTIPATION; Start 09/23/18 at 13:00; Status UNV Pantoprazole (Protonix Tab) 40 mg DAILY@06 PO ; Start 09/24/18 at 06:00; Status UNV Famotidine (Pepcid) 10 mg HS PO ; Start 09/23/18 at 21:00; Status UNV Coded Allergies: Penicillins (Verified Allergy, Severe, SWELLING, 09/23/18) Family History Significant Family History: no pertinent family hx Social History Alcohol Use: none Smoking Status: Never smoker Drug Use: none Exam/Review of Systems Vital Signs Vitals Vital Signs Date Temp Pulse Resp B/P (MAP) Pulse Ox O2 O2 Flow FiO2 Time Delivery Rate 09/23/18 91 24 124/58 91 High Flow 12:01 (80) 09/23/18 100 10:33 09/23/18 97.4 15.0 06:30 KASSANDRA POMPA MD Sep 23, 2018 12:56
[2018-09-23] MEDS ORDERED: DOCUSATE SODIUM 100 MG CAP PO PRN ×2 (13:00)
[2018-09-23] MEDS ORDERED: NON-FORMULARY/PATIENT OWN MED (Omeprazole* 40 MG) PO SCH (13:00)
[2018-09-23] MEDS ORDERED: NACL 0.9% 3 ML SYG IV SCH ×2 (13:00)
[2018-09-23] MEDS ORDERED: ZOLPIDEM 5 MG TAB PO PRN (13:00)
[2018-09-23] MEDS ORDERED: ONDANSETRON 4 MG INJ IV PRN ×2 (13:00)
[2018-09-23] MEDS ORDERED: MAGNESIUM HYDROXIDE 30ML CUP PO PRN (13:00)
[2018-09-23] MEDS ORDERED: ACETAMINOPHEN 325 MG TAB PO PRN (13:00)
[2018-09-23] MEDS ORDERED: GLUCOSE GEL 15 GRAM TUBE BUCCAL PRN (13:30)
[2018-09-23] MEDS: METOPROLOL 25 MG TAB PO SCH ×2 (13:30→23:00)
[2018-09-23] MEDS ORDERED: GLUCAGON 1 MG INJ IM PRN (13:30)
[2018-09-23] MEDS ORDERED: GLUCOSE GEL 15 GRAM TUBE PO PRN ×2 (13:30)
[2018-09-23] MEDS ORDERED: INSULIN GLARGINE [LANTus] (100 UNITS/ML) SYG SC ONE (14:00)
--- NOTE | 2018-09-23 14:32 | PREOPHP ---
DATE OF ADMISSION: 09/23/2018 REASON FOR ADMISSION: Right upper quadrant abdominal pain followed by shortness of breath. HISTORY OF PRESENT ILLNESS: This 88-year-old female said that she was well until last evening when s he developed some right upper quadrant abdominal pain. She said that she could not get comfortable. Then, she developed some shortness of breath and then she called paramedics and was brought to [facility] Emergency Room. In the Emergency Room, the patient was found to have evidenc e of congestive heart failure. The patient was given diuretics. LABORATORY TESTS: Done in the ER showed that she is anemic and that her pO2 was reduced. Her O2 sat uration was 75%. Her chemistry panel showed that her serum creatinine was elevated and blood sugar w as also elevated. She did have elevated liver enzymes including alkaline phosphatase. Her troponin was also elevated. The patient denies actual chest pain. She points more toward the right upper iris drant of her abdomen as having pain. She does have an extensive past medical, including anemia, arth ropathy, left breast cancer status post lumpectomy, radiation and tamoxifen, carpal tunnel syndrome, type 2 diabetes mellitus controlled with oral agents, gastroesophageal reflux disease, gout, hyperlip idemia, hypertension, heart murmur, left foot ulcer requiring surgery. Iron deficiency anemia, left shoulder pain, urinary tract infection, vitamin B12 deficiency, vitamin D deficiency, history of left breast lumpectomy, history of bunionectomy, foot neuroma resection, left foot I and D of the first m etatarsal phalangeal joint. CURRENT MEDICATIONS: 1. Valsartan/HCTZ 160/25 a day. 2. Metformin 1000 mg twice a day. 3. Famotidine 20 mg a day. 4. Atorvastatin 20 mg a day. 5. Plendil 10 mg a day. 6. Vitamin D 50,000 units a month. 7. Centrum Silver 1 daily. 8. Aspirin 81 mg a day. 9. Diclofenac. 10. Voltaren gel p.r.n. 11. Calcium carbonate daily. 12. Vitamin B12 injections. SOCIAL HISTORY: She is . She does not smoke. She drinks alcohol socially. FAMILY HISTORY: Mother had hypertension. Mother had heart failure. Father had coronary artery dise ase. REVIEW OF SYSTEMS: Essentially unremarkable except for that mentioned above. ALLERGY TO PENICILLIN. PHYSICAL EXAMINATION VITAL SIGNS: Pulse 91, respirations 24, blood pressure 124/58, O2 saturation 91% on high flow nasal cannula. HEENT: Head normocephalic. Eyes: Extraocular muscles intact. NOSE AND MOUTH: Normal. NECK: Supple. No neck vein distention. LUNGS: She has got inspiratory rales and expiratory wheezes bilaterally. HEART: Regular rhythm with I to II/ systolic ejection murmur heard loudest at the right second int ercostal space. ABDOMEN: Soft. She does have some slight epigastric tenderness. EXTREMITIES: She has trace pretibial edema. IMPRESSION: 1. Congestive heart failure. This is an acute onset of congestive heart failure in this patient. O ne must rule out acute coronary syndrome, especially with elevated troponin levels. She has not been in heart failure before. She does have a heart murmur which could be aortic stenosis. Her chest x- ray does show congestive heart failure and acute pulmonary edema. 2. Right upper quadrant abdominal pain with elevated liver enzymes. One must rule out acute cholecy stitis. 3. History of hypertension. 4. History of type 2 diabetes mellitus. 5. History of hyperlipidemia. 6. Anemia, which has been a problem in the past. 7. Acute renal failure. 8. History of arthropathy. 9. Uncontrolled diabetes mellitus with evidence of diabetic ketoacidosis. Plan to transfer to the I and start insulin drip. PLAN: 1. Plan transferred to the ICU and start insulin drip. 2. Continue high flow oxygen to maintain an adequate pO2 level. 3. Resume some routine medications. 4. Cardiology consult called. 5. Abdominal ultrasound to evaluate gallbladder and liver. 6. I will adjust the patient's medications as needed to treat congestive heart failure and control d iabetes. Dictated By: GENARO SEPULVEDA MD, ND/YAHAIRA Conf#: [id number] DID#: [id number]
--- NOTE | 2018-09-23 15:34 | HP ---
DATE OF ADMISSION: 09/23/2018 IDENTIFYING DATA: The patient is an 88-year-old female admitted to the hospital with epigastric and substernal chest pressure of approximately 1 to 2 days' duration, cough and shortness of breath. HISTORICAL EVENTS: The patient states for the last 4 to 5 days, she has noted a slight cough and "ru nny nose". Her cough has been productive of only clear mucus as has been her nasal discharge. She i s attempting to walk during the last 2 days, but noted some mild shortness of breath. It was last ev ening that she noted discomfort involving the epigastrium and substernal area that did not radiate to the neck, arm or jaw and because of persistence of her discomfort was transported to [facility]. She presently denies any epigastric or substernal chest discomfort. Cough has persisted as well as her shortness of breath. She denies any nausea, vomiting, symptoms of gastrointestinal blee ding, diarrhea. She does have a tendency to have constipation. She denies urinary urgency, dysuria or hematuria. MEDICATIONS PRIOR TO ADMISSION: Include: 1. Diovan HCT 160/25. 2. Metformin 500 mg 2 tablets b.i.d. 3. Pepcid 20 mg per day. 4. Lipitor 20 mg per day. 5. Plendil 10 mg per day. 6. Vitamin D 50,000 units weekly. 7. Multivitamin. 8. Ecotrin 81 mg daily. 9. Tums 500 mg b.i.d. PAST MEDICAL HISTORY: Includes anemia, history of breast cancer, B12 deficiency, type 2 diabetes, hi story of GERD, history of gout, hyperlipidemia, hypertension. SOCIAL HISTORY: She is a . She never smoked. FAMILY HISTORY: Positive for hypertension, coronary artery disease. PHYSICAL EXAMINATION: VITAL SIGNS: BP 124/58, pulse was 90, respirations are 24, O2 sat on high flow oxygen is 91%. HEENT: Eyes: Extraocular muscles were full. Nose, mouth and throat are normal. NECK: Revealed HJR present. CHEST: Revealed bibasilar rales without pleural rub. HEART: Rhythm regular. I/ systolic murmur. No third sound, no rub. ABDOMEN: Nontender. No organomegaly. There was no epigastric tenderness. EXTREMITIES: Trace pedal. No pretibial edema. No flank edema. LABORATORY AND DIAGNOSTIC STUDIES: Hematocrit 30.7, white count 11,000. Differential unrevealing. Electrolytes were normal. Creatinine 1.62. Troponin 0.631. Sugar on admission was 404. Urine: A 2+ esterase, 1+ glucose. EKG: ST-T changes and chest x-ray: Vascular congestion. IMPRESSION: 1. 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 Cardiology evaluated. Await serial troponins. Pen ding this either catheterization or nuclear treadmill. 2. Diabetes mellitus, now with obviously poor control. We will begin subcutaneous insulin and Lantu s. 3. Mild acute renal insufficiency with her baseline serum creatinine being 1 in 06/2018. 4. Anemia that has worsened a bit. Hematocrit was 33.9 in 06/2018. Iron studies will be obtained a s well as stool for OB. 5. History of breast cancer. PLAN: Admit to the ICU. Diurese. Close monitoring of her renal function. Be certain there is no b ladder dysfunction i.e. obtain postvoid bladder residual. We will obtain venous vascular studies. L ovenox has been ordered. Dictated By: KASSANDRA POMPA MD MR/NTS Conf#: [id number] DID#: [id number] CC: GENARO SEPULVEDA MD; YAIMA BARROW MD;*[facility]*
[2018-09-23] MEDS: ENOXAPARIN 100 MG/ML SYG SC SCH (16:03)
[2018-09-23] MEDS: NITROGLYCERIN 2% 1 GM OINT PKT TD SCH ×2 (16:26→22:23)
[2018-09-23] MEDS ORDERED: BUMETANIDE 25 MG in DEXTROSE 5% 150 ML IV SCH (16:30)
[2018-09-23] MEDS: INSULIN ASPART [NOVOLOG] 3 ML PEN SC SCH ×2 (17:31→20:58)
[2018-09-23] MEDS ORDERED: INSULIN ASPART [NOVOLOG] 3 ML PEN SC SCH (17:35)
[2018-09-23] MEDS ORDERED: FUROSEMIDE 40 MG INJ IV SCH (18:00)
[2018-09-23] MEDS ORDERED: FAMOTIDINE 20 MG TAB PO SCH ×2 (21:00)
[2018-09-23] MEDS: ATORVASTATIN 80 MG TAB PO SCH (21:00)
[2018-09-23] MEDS: FELODIPINE (ER) 5 MG TAB PO SCH (21:00)
[2018-09-24] VITALS (41 sets, daily range): BP systolic 92–127; BP diastolic 44–64; PULSE 76–103; RESP 14–27
[2018-09-24] MEDS: INSULIN ASPART [NOVOLOG] 3 ML PEN SC SCH ×6 (01:00→21:16)
[2018-09-24] MEDS ORDERED: ACCU-CHEK XX SCH (02:00)
[2018-09-24] MEDS: NITROGLYCERIN 2% 1 GM OINT PKT TD SCH ×3 (05:48→22:39)
[2018-09-24] MEDS ORDERED: PANTOPRAZOLE (EC) 40 MG TAB PO SCH (06:00)
--- NOTE | 2018-09-24 08:15 | CONS ---
Assessment/Plan Assessment/Plan Hospital Course (Demo Recall) 1. Congestive heart failure. She seems improved. She put out more than 3 L of fluid yesterday on the Bumex drip. I will check a chest x-ray today. 2. Renal failure. Her renal function is better today. She has a good urine output. 3. Respiratory failure requiring BiPAP. 4. Elevated troponin levels being seen by cardiology 5. Hypertension 6. Type 2 diabetes mellitus being controlled. Consultation Date/Type/Reason Admit Date/Time Sep 23, 2018 at 07:08 Initial Consult Date 09/23/18 Date/Time of Note DATE: 09/24/18 TIME: 08:11 24 HR Interval Summary Free Text/Dictation This patient is being seen in the intensive care unit. She is now on BiPAP because of low oxygen saturation. She is awake and alert. Constitutional: improved Exam/Review of Systems Exam Vitals Vital Signs Date Temp Pulse Resp B/P (MAP) Pulse Ox O2 O2 Flow FiO2 Time Delivery Rate 09/24/18 98.2 77 26 122/59 93 BIPAP 06:00 (80) 09/24/18 100 05:20 09/23/18 15.0 06:30 Intake and Output 09/23/18 09/23/18 09/24/18 1515:00 23:00 07:00 IntakeIntake Total 0 ml 25 ml 85 ml OutputOutput Total 0 ml 2275 ml 1323 ml BalanceBalance 0 ml -2250 ml -1238 ml Constitutional: alert, oriented, frail Respiratory: clear to auscultation, diminished breath sounds Cardiovascular: regular rate and rhythm Gastrointestinal: soft, non-tender Musculoskeletal: nl extremities to inspection Results Result Diagram: 09/24/18 0510 09/24/18 0510 Results 24hrs Laboratory Tests Test 09/23/18 08:29 09/23/18 08:36 09/23/18 08:38 09/23/18 09:32 Sodium Level 135 Potassium Level 5.0 Chloride Level 101 Carbon Dioxide 23 Level Anion Gap 11 Blood Urea 55 H Nitrogen Creatinine 1.64 H Est Glomerular Filtrat Rate mL/min Glucose Level 436 *H Calcium Level 9.2 Phosphorus 4.5 Level Magnesium Level 2.0 Blood Gas Blood venous Specimen Source Arterial Blood 09/23/2018 8:46: Date Drawn 30 AM Arterial Blood VENOUS LINE Gas Puncture Site Nash Test N/A Venous Blood pH 7.404 Venous Blood 32.4 L pCO2 (Temp Corrected ) Venous Blood 40.2 H pO2 (Temp Corrected ) Venous Blood 19.8 L HCO3 Venous Blood 75.0 Oxygen Saturation Venous Blood -4.1 Base Excess Venous Blood 11.4 Total Hemoglobin Venous Blood 74.9 Oxyhemoglobin Venous Blood 0.1 Methemoglobin Carboxyhemoglob 0 in Blood Gas 37.0 Temperature Blood Gas HFNC Modality FiO2 100.0 Blood Gas RT Notified Whom Blood Gas 09/23/2018 8:57: Notified Time 09 AM Bedside Glucose 410 *H Urine Color YELLOW Urine Clarity CLEAR Urine pH 5.0 Urine Specific 1.011 Stopover Urine Ketones NEGATIVE Urine Nitrite NEGATIVE Urine Bilirubin NEGATIVE Urine NEGATIVE Urobilinogen Urine Leukocyte 2+ H Esterase Urine 0 Microscopic RBC Urine 9 H Microscopic WBC Urine NEGATIVE Hemoglobin Urine Glucose 1+ H Urine Total NEGATIVE Protein Test 09/23/18 09:33 09/23/18 10:15 09/23/18 10:36 09/23/18 10:49 Bedside Glucose 404 *H 365 H Blood Gas Blood venous Specimen Source Arterial Blood 09/23/2018 10:4 Date Drawn 5:17 AM Arterial Blood VENOUS LINE Gas Puncture Site Nash Test N/A Venous Blood pH 7.375 Venous Blood 33.8 L pCO2 (Temp Corrected ) Venous Blood 32.5 H pO2 (Temp Corrected ) Venous Blood 19.3 L HCO3 Venous Blood 59.7 Oxygen Saturation Venous Blood -5.1 L Base Excess Venous Blood 11.5 Total Hemoglobin Venous Blood 59.3 Oxyhemoglobin Venous Blood 0.3 Methemoglobin Carboxyhemoglob 0.3 in Blood Gas 37.0 Temperature Blood Gas HFNC Modality FiO2 100.0 Blood Gas TM Notified Whom Blood Gas 09/23/2018 10:5 Notified Time 6:09 AM Sodium Level 136 Potassium Level 4.5 Chloride Level 103 Carbon Dioxide 21 Level Anion Gap 12 Blood Urea 51 H Nitrogen Creatinine 1.62 H Est Glomerular Filtrat Rate mL/min Glucose Level 360 H Calcium Level 9.3 Phosphorus 3.8 Level Magnesium Level 2.0 Ferritin 271.0 H Total Bilirubin 0.5 Direct 0.00 Bilirubin Indirect 0.5 Bilirubin Aspartate Amino 153 H Transf (AST/SGO T) Alanine 177 H Aminotransferas e (ALT/SGPT) Alkaline 140 H Phosphatase Creatine Kinase 66 Creatine Kinase 3.4 Index Creatinine 2.23 Kinase MB (Mass) Troponin I 0.631 *H Total Protein 6.0 L Albumin 3.6 Vitamin B12 411 Level Test 09/23/18 11:39 09/23/18 13:40 09/23/18 15:59 09/23/18 17:15 Bedside Glucose 337 H 290 H Blood Gas Blood arterial Specimen Source Arterial Blood 09/23/2018 1:55: Date Drawn 45 PM Arterial Blood 7.422 pH (Temp corrected ) Arterial Blood 35.5 pCO2 (Temp correct) Arterial Blood 49.3 *L pO2 (Temp corrected ) Arterial Blood 22.6 HCO3 Arterial Blood -1.4 Base Excess Arterial Blood 85.0 L Oxygen Saturati on Nash Test ACCEPTAB Arterial Blood Right Radial Gas Puncture Site Arterial 0.3 Blood Carboxyhe moglobin Arterial Blood 0.2 Methemoglobin Blood Gas A-a 628.2 H O2 Differential Oxyhemoglobin 84.6 L Percent Blood Gas 37.0 Temperature Blood Gas HFNC Modality FiO2 100.0 Blood Gas L.JCARLOS RAMOS Critical Value Read Back Blood Gas TM Notified Whom Blood Gas 09/23/2018 2:05: Notified Time 06 PM Troponin I 2.530 *H Test 09/23/18 17:50 09/23/18 18:20 09/23/18 20:51 09/24/18 00:58 Blood Gas Blood arterial Specimen Source Arterial Blood 09/23/2018 6:15: Date Drawn 46 PM Arterial Blood 7.430 pH (Temp corrected ) Arterial Blood 35.8 pCO2 (Temp correct) Arterial Blood 73.6 L pO2 (Temp corrected ) Arterial Blood 23.2 HCO3 Arterial Blood -0.6 Base Excess Arterial Blood 94.7 L Oxygen Saturati on Nash Test ACCEPTAB Arterial Blood Right Radial Gas Puncture Site Arterial 0 Blood Carboxyhe moglobin Arterial Blood 0.4 Methemoglobin Blood Gas A-a 603.6 H O2 Differential Oxyhemoglobin 94.3 Percent Blood Gas 37.0 Temperature Blood Gas 20.0 Respiration Rate Blood Gas 26 Actual Respiration Rat e Blood Gas MASK - BIPAP Modality FiO2 100.0 Blood Gas 10 Pressure Support Blood Gas 15/5 IPAP/EPAP Ratio Blood Gas KS Notified Whom Blood Gas 09/23/2018 6:35: Notified Time 47 PM Potassium Level 4.3 Bedside Glucose 201 181 Test 09/24/18 05:01 09/24/18 05:10 Bedside Glucose 170 White Blood 7.1 # Count Red Blood Count 3.66 L Hemoglobin 10.2 L Hematocrit 31.5 L Mean 86.1 Corpuscular Volume Mean 27.9 L Corpuscular Hemoglobin Mean 32.4 Corpuscular Hemoglobin Conc ent Red Cell 13.4 Distribution Width Platelet Count 243 Mean Platelet 11.6 H Volume Immature 0.400 Granulocytes % Neutrophils % 80.9 H Lymphocytes % 11.8 L Monocytes % 6.6 Eosinophils % 0.0 Basophils % 0.3 Nucleated Red 0.0 Blood Cells % Immature 0.030 Granulocytes # Neutrophils # 5.7 Lymphocytes # 0.8 Monocytes # 0.5 Eosinophils # 0.0 Basophils # 0.0 Nucleated Red 0.0 Blood Cells # Sodium Level 144 Potassium Level 3.9 Chloride Level 103 Carbon Dioxide 29 Level Anion Gap 12 Blood Urea 43 H Nitrogen Creatinine 1.36 H Est Glomerular Filtrat Rate mL/min Glucose Level 167 # Hemoglobin A1c 8.0 H Calcium Level 9.3 Phosphorus 4.1 Level Magnesium Level 1.8 Troponin I 3.200 *H Medications Medication Current Medications Atorvastatin Calcium (Lipitor) 80 mg HS PO ; Start 09/23/18 at 21:00 Enoxaparin Sodium (Lovenox) 75 mg Q24H SC Last administered on 09/23/18at 16:03; Admin Dose 75 MG; Start 09/23/18 at 13:00 Nitroglycerin (Nitroglycerin 2% Oint) 1 inch Q8 TD Last administered on 09/24/18at 05:48; Admin Dose 1 INCH; Start 09/23/18 at 14:00 Aspirin (Halfprin) 81 mg DAILY PO ; Start 09/24/18 at 09:00 IV Flush (NS 3 ml) 3 ml PER PROTOCOL IV ; Start 09/23/18 at 13:00 Lorazepam (Ativan) 0.5 mg Q8H PRN PO .ANXIETY; Start 09/23/18 at 13:00 Ondansetron HCl (Zofran Inj) 4 mg Q6H PRN IV NAUSEA/VOMITING; Start 09/23/18 at 13:00 Acetaminophen (Tylenol Tab) 650 mg Q6H PRN PO .PAIN 1-3 OR TEMP; Start 09/23/18 at 13:00 Zolpidem Tartrate (Ambien) 5 mg QHS PRN PO .INSOMNIA; Start 09/23/18 at 13:00 Docusate Sodium (Colace) 100 mg Q12H PRN PO .CONSTIPATION; Start 09/23/18 at 13:00 Magnesium Hydroxide (Milk Of Mag) 30 ml DAILY PRN PO .CONSTIPATION; Start 09/23/18 at 13:00 Felodipine (Plendil) 5 mg BID PO ; Start 09/23/18 at 21:00 Pantoprazole (Protonix Tab) 40 mg DAILY@06 PO Last administered on 09/24/18at 05:47; Admin Dose 40 MG; Start 09/24/18 at 06:00 Famotidine (Pepcid) 10 mg HS PO ; Start 09/23/18 at 21:00 Miscellaneous Information 1 ea NOTE XX ; Start 09/23/18 at 13:30 Glucose (Glutose) 15 gm Q15M PRN PO DECREASED GLUCOSE; Start 09/23/18 at 13:30 Glucose (Glutose) 22.5 gm Q15M PRN PO DECREASED GLUCOSE; Start 09/23/18 at 13:30 Dextrose (D50w Syringe) 25 ml Q15M PRN IV DECREASED GLUCOSE; Start 09/23/18 at 13:30 Dextrose (D50w Syringe) 50 ml Q15M PRN IV DECREASED GLUCOSE; Start 09/23/18 at 13:30 Glucagon (Glucagen) 1 mg Q15M PRN IM DECREASED GLUCOSE; Start 09/23/18 at 13:30 Glucose (Glutose) 15 gm Q15M PRN BUCCAL DECREASED GLUCOSE; Start 09/23/18 at 13:30 Bumetanide 25 mg/ Dextrose 250 ml @ 5 mls/hr Q24H IV Last administered on 09/23/18at 16:17; Admin Dose 5 MLS/HR; Start 09/23/18 at 16:30 Insulin Aspart (Novolog Insulin Pen) NOVOLOG *MODERATE* ALGORI... Q4 SC Last administered on 09/24/18at 05:03; Admin Dose 2 UNIT; Start 09/23/18 at 17:00 Metoprolol Tartrate (Lopressor) 2.5 mg Q6 IV ; Start 09/24/18 at 12:00 Magnesium Sulfate 50 ml @ 25 mls/hr ONCE ONCE IVPB ; Start 09/24/18 at 08:30; Stop 09/24/18 at 10:29; Status UNGENARO LOZANO MD Sep 24, 2018 08:15
[2018-09-24] MEDS ORDERED: MAGNESIUM SULFATE 2 GM/50 ML 50 ML IVPB ONE (08:30)
[2018-09-24] MEDS: ASPIRIN (EC) 81 MG TAB PO SCH (08:46)
[2018-09-24] MEDS: FELODIPINE (ER) 5 MG TAB PO SCH ×2 (08:46→21:02)
--- NOTE | 2018-09-24 09:21 | CONS ---
Assessment/Plan Assessment/Plan Assessment/Plan (Daily) Chest x-ray was reviewed from yesterday which is showing bilateral irregular infiltrates suggestive of pulmonary edema. Chest x-ray from today showing significant increase in right-sided infiltrative changes indicative of pneumonia. ABG was reviewed. Assessment and recommendations; 1. Patient admitted with 2-day history of shortness of breath , chest x-ray more in line with bilateral pneumonia than CHF. The patient does have elevation in troponins possibly demand ischemia. Possibly NSTEMI. 2. History of hypertension and diabetes. 3. Chest x-ray is worse despite adequate diuresis again pointing more towards pneumonia than CHF as the dominant etiology of shortness of breath. 4. Possibly very mild baseline renal insufficiency. Continue current supportive care. Consider stopping Bumex drip. Add Azactam and cefepime intravenously. Continue BiPAP for now. Obtain follow-up chest x- ray in 24 hours. Consultation Date/Type/Reason Admit Date/Time Sep 23, 2018 at 07:08 Date of Consultation: Sep 24, 2018 Type of Consult Pulmonary/critical care Patient is an 88-year-old lady who was brought into the emergency room yesterday with a 2-day history of increasing shortness of breath and chest pressure. Upon evaluation patient had mild elevation of troponins as well as elevation in BNP level. Chest x-ray showed pulmonary edema, patient has been transferred to ICU and started on BiPAP. Patient also has been on Bumex drip with adequate urine output. Patient reports very little improvement in symptoms of shortness of breath since yesterday. Denies any further chest pain, complains of scant cough with production of clear sputum. Denies any fever chills any body aches or myalgias. According to her she was fine until 2 days ago when the symptoms started. Past medical history; 1. History of hypertension and diabetes. Medications; reviewed. Allergies; penicillin. Social history; patient never smoked. Family history; she is a . Occupational history; noncontributory. Review of systems; complains of cough with mild shortness of breath. Denies any abdominal pain, nausea vomiting. Any fever chills. Patient is on BiPAP therefore a limited review of systems could be obtained. General exam; elderly lady, on BiPAP. Awake and alert. Currently no distress. Date/Time of Note DATE: 09/24/18 TIME: 09:16 Past Medical History Home Meds Reported Medications Omeprazole* (Omeprazole*) 40 Mg Capsule.dr, 40 MG PO DAILY, #30 CAP 09/23/18 Ferrous Sulfate* (Ferrous Sulfate*) 325 Mg Tabec, 325 MG PO TID, TAB 09/23/18 Felodipine* (Felodipine*) 5 Mg Tab.sr.24h, 5 MG PO BID, TAB.SA 09/23/18 Ascorbic Acid* (Vitamin C*) 500 Mg Capsule.sa, 500 MG PO DAILY, CAP 09/23/18 Metformin Hcl* (Metformin Hcl*) 500 Mg Tablet, 2000 MG PO WITH BREAKFAST DINNE, #60 TAB 09/23/18 Atorvastatin Calcium* (Atorvastatin Calcium*) 20 Mg Tablet, 20 MG PO QHS, #30 TAB 09/23/18 Losartan-Hydrochlorothiazide (Losartan-HCTZ) 100-25 Mg Tab, 1 TAB PO DAILY, TAB 09/23/18 Discontinued Reported Medications Omeprazole* (Omeprazole*) 40 Mg Capsule.dr, 40 MG PO DAILY, #30 CAP 06/12/16 Ferrous Sulfate* (Ferrous Sulfate*) 325 Mg Tabec, 325 MG PO DAILY, TAB 06/12/16 Felodipine* (Felodipine*) 5 Mg Tab.sr.24h, 5 MG PO DAILY, TAB.SA 06/12/16 Ascorbic Acid* (Vitamin C*) 500 Mg Capsule.sa, 500 MG PO DAILY, CAP 06/12/16 Metformin Hcl* (Metformin Hcl*) 500 Mg Tablet, 2000 MG PO WITH BREAKFAST DINNE, #30 TAB 06/12/16 Atorvastatin Calcium* (Atorvastatin Calcium*) 20 Mg Tablet, 20 MG PO QHS, #30 TAB 06/12/16 Losartan-Hydrochlorothiazide (Losartan-HCTZ) 100-25 Mg Tab, 1 TAB PO DAILY, TAB 06/12/16 Medications Current Medications Atorvastatin Calcium (Lipitor) 80 mg HS PO ; Start 09/23/18 at 21:00 Enoxaparin Sodium (Lovenox) 75 mg Q24H SC Last administered on 09/23/18at 16:03; Admin Dose 75 MG; Start 09/23/18 at 13:00 Nitroglycerin (Nitroglycerin 2% Oint) 1 inch Q8 TD Last administered on 09/24/18at 05:48; Admin Dose 1 INCH; Start 09/23/18 at 14:00 Aspirin (Halfprin) 81 mg DAILY PO ; Start 09/24/18 at 09:00 IV Flush (NS 3 ml) 3 ml PER PROTOCOL IV ; Start 09/23/18 at 13:00 Lorazepam (Ativan) 0.5 mg Q8H PRN PO .ANXIETY; Start 09/23/18 at 13:00 Ondansetron HCl (Zofran Inj) 4 mg Q6H PRN IV NAUSEA/VOMITING; Start 09/23/18 at 13:00 Acetaminophen (Tylenol Tab) 650 mg Q6H PRN PO .PAIN 1-3 OR TEMP; Start 09/23/18 at 13:00 Zolpidem Tartrate (Ambien) 5 mg QHS PRN PO .INSOMNIA; Start 09/23/18 at 13:00 Docusate Sodium (Colace) 100 mg Q12H PRN PO .CONSTIPATION; Start 09/23/18 at 13:00 Magnesium Hydroxide (Milk Of Mag) 30 ml DAILY PRN PO .CONSTIPATION; Start 09/23/18 at 13:00 Felodipine (Plendil) 5 mg BID PO ; Start 09/23/18 at 21:00 Pantoprazole (Protonix Tab) 40 mg DAILY@06 PO Last administered on 09/24/18at 05:47; Admin Dose 40 MG; Start 09/24/18 at 06:00 Famotidine (Pepcid) 10 mg HS PO ; Start 09/23/18 at 21:00 Miscellaneous Information 1 ea NOTE XX ; Start 09/23/18 at 13:30 Glucose (Glutose) 15 gm Q15M PRN PO DECREASED GLUCOSE; Start 09/23/18 at 13:30 Glucose (Glutose) 22.5 gm Q15M PRN PO DECREASED GLUCOSE; Start 09/23/18 at 13: 30 Dextrose (D50w Syringe) 25 ml Q15M PRN IV DECREASED GLUCOSE; Start 09/23/18 at 13:30 Dextrose (D50w Syringe) 50 ml Q15M PRN IV DECREASED GLUCOSE; Start 09/23/18 at 13:30 Glucagon (Glucagen) 1 mg Q15M PRN IM DECREASED GLUCOSE; Start 09/23/18 at 13:30 Glucose (Glutose) 15 gm Q15M PRN BUCCAL DECREASED GLUCOSE; Start 09/23/18 at 13:30 Bumetanide 25 mg/ Dextrose 250 ml @ 5 mls/hr Q24H IV Last administered on 09/23/18at 16:17; Admin Dose 5 MLS/HR; Start 09/23/18 at 16:30 Insulin Aspart (Novolog Insulin Pen) NOVOLOG *MODERATE* ALGORI... Q4 SC Last administered on 09/24/18at 05:03; Admin Dose 2 UNIT; Start 09/23/18 at 17:00 Metoprolol Tartrate (Lopressor) 2.5 mg Q6 IV ; Start 09/24/18 at 12:00 Magnesium Sulfate 50 ml @ 25 mls/hr ONCE ONCE IVPB ; Start 09/24/18 at 08:30; Stop 09/24/18 at 10:29 Allergies: Coded Allergies: Penicillins (Verified Allergy, Severe, SWELLING, 09/23/18) Social History Alcohol Use: none Smoking Status: Never smoker Drug Use: none Exam/Review of Systems Exam Vitals Vital Signs Date Temp Pulse Resp B/P (MAP) Pulse Ox O2 O2 Flow FiO2 Time Delivery Rate 09/24/18 100 08:00 09/24/18 98.2 26 122/59 93 BIPAP 06:00 (80) 09/24/18 100 05:20 09/23/18 15.0 06:30 Intake and Output 09/23/18 09/23/18 09/24/18 1515:00 23:00 07:00 IntakeIntake Total 0 ml 25 ml 85 ml OutputOutput Total 0 ml 2275 ml 1323 ml BalanceBalance 0 ml -2250 ml -1238 ml Exam H EENT exam; supple neck, positive JVD. No lymphadenopathy. Midline trachea. No thyromegaly. On full face BiPAP. Patient has carious teeth. Pupils are small bilaterally. Chest exam; diminished breath sounds bilaterally. S1-S2 audible, no murmurs. Regular rhythm. Abdomen exam; soft, nondistended. No organomegaly. Bowel sounds audible. Extremity exam; no peripheral edema clubbing. Patient does have patchy ecchymosis. RESPIRATORY THERAPY TECHNICIAN exam; no focal deficit. Results Result Diagram: 09/24/18 0510 09/24/18 0510 Results 24hrs Laboratory Tests Test 09/23/18 09:32 09/23/18 09:33 09/23/18 10:15 09/23/18 10:36 Urine Color YELLOW Urine Clarity CLEAR Urine pH 5.0 Urine Specific 1.011 [place] Urine Ketones NEGATIVE Urine Nitrite NEGATIVE Urine Bilirubin NEGATIVE Urine NEGATIVE Urobilinogen Urine Leukocyte 2+ H Esterase Urine 0 Microscopic RBC Urine 9 H Microscopic WBC Urine NEGATIVE Hemoglobin Urine Glucose 1+ H Urine Total NEGATIVE Protein Bedside Glucose 404 *H 365 H Blood Gas Blood venous Specimen Source Arterial Blood 09/23/2018 10:4 Date Drawn 5:17 AM Arterial Blood VENOUS LINE Gas Puncture Site Nash Test N/A Venous Blood pH 7.375 Venous Blood 33.8 L pCO2 (Temp Corrected ) Venous Blood 32.5 H pO2 (Temp Corrected ) Venous Blood 19.3 L HCO3 Venous Blood 59.7 Oxygen Saturation Venous Blood -5.1 L Base Excess Venous Blood 11.5 Total Hemoglobin Venous Blood 59.3 Oxyhemoglobin Venous Blood 0.3 Methemoglobin Carboxyhemoglob 0.3 in Blood Gas 37.0 Temperature Blood Gas HFNC Modality FiO2 100.0 Blood Gas TM Notified Whom Blood Gas 09/23/2018 10:5 Notified Time 6:09 AM Test 09/23/18 10:49 09/23/18 11:39 09/23/18 13:40 09/23/18 15:59 Sodium Level 136 Potassium Level 4.5 Chloride Level 103 Carbon Dioxide 21 Level Anion Gap 12 Blood Urea 51 H Nitrogen Creatinine 1.62 H Est Glomerular Filtrat Rate mL/min Glucose Level 360 H Calcium Level 9.3 Phosphorus 3.8 Level Magnesium Level 2.0 Ferritin 271.0 H Total Bilirubin 0.5 Direct 0.00 Bilirubin Indirect 0.5 Bilirubin Aspartate Amino 153 H Transf (AST/SGO T) Alanine 177 H Aminotransferas e (ALT/SGPT) Alkaline 140 H Phosphatase Creatine Kinase 66 Creatine Kinase 3.4 Index Creatinine 2.23 Kinase MB (Mass) Troponin I 0.631 *H 2.530 *H Total Protein 6.0 L Albumin 3.6 Vitamin B12 411 Level Bedside Glucose 337 H Blood Gas Blood arterial Specimen Source Arterial Blood 09/23/2018 1:55: Date Drawn 45 PM Arterial Blood 7.422 pH (Temp corrected ) Arterial Blood 35.5 pCO2 (Temp correct) Arterial Blood 49.3 *L pO2 (Temp corrected ) Arterial Blood 22.6 HCO3 Arterial Blood -1.4 Base Excess Arterial Blood 85.0 L Oxygen Saturati on Nash Test ACCEPTAB Arterial Blood Right Radial Gas Puncture Site Arterial 0.3 Blood Carboxyhe moglobin Arterial Blood 0.2 Methemoglobin Blood Gas A-a 628.2 H O2 Differential Oxyhemoglobin 84.6 L Percent Blood Gas 37.0 Temperature Blood Gas HFNC Modality FiO2 100.0 Blood Gas L.JCARLOS RAMOS Critical Value Read Back Blood Gas TM Notified Whom Blood Gas 09/23/2018 2:05: Notified Time 06 PM Test 09/23/18 17:15 09/23/18 17:50 09/23/18 18:20 09/23/18 20:51 Bedside Glucose 290 H 201 Blood Gas Blood arterial Specimen Source Arterial Blood 09/23/2018 6:15: Date Drawn 46 PM Arterial Blood 7.430 pH (Temp corrected ) Arterial Blood 35.8 pCO2 (Temp correct) Arterial Blood 73.6 L pO2 (Temp corrected ) Arterial Blood 23.2 HCO3 Arterial Blood -0.6 Base Excess Arterial Blood 94.7 L Oxygen Saturati on Nash Test ACCEPTAB Arterial Blood Right Radial Gas Puncture Site Arterial 0 Blood Carboxyhe moglobin Arterial Blood 0.4 Methemoglobin Blood Gas A-a 603.6 H O2 Differential Oxyhemoglobin 94.3 Percent Blood Gas 37.0 Temperature Blood Gas 20.0 Respiration Rate Blood Gas 26 Actual Respiration Rat e Blood Gas MASK - BIPAP Modality FiO2 100.0 Blood Gas 10 Pressure Support Blood Gas 15/5 IPAP/EPAP Ratio Blood Gas KS Notified Whom Blood Gas 09/23/2018 6:35: Notified Time 47 PM Potassium Level 4.3 Test 09/24/18 00:58 09/24/18 05:01 09/24/18 05:10 Bedside Glucose 181 170 White Blood 7.1 # Count Red Blood Count 3.66 L Hemoglobin 10.2 L Hematocrit 31.5 L Mean 86.1 Corpuscular Volume Mean 27.9 L Corpuscular Hemoglobin Mean 32.4 Corpuscular Hemoglobin Conc ent Red Cell 13.4 Distribution Width Platelet Count 243 Mean Platelet 11.6 H Volume Immature 0.400 Granulocytes % Neutrophils % 80.9 H Lymphocytes % 11.8 L Monocytes % 6.6 Eosinophils % 0.0 Basophils % 0.3 Nucleated Red 0.0 Blood Cells % Immature 0.030 Granulocytes # Neutrophils # 5.7 Lymphocytes # 0.8 Monocytes # 0.5 Eosinophils # 0.0 Basophils # 0.0 Nucleated Red 0.0 Blood Cells # Sodium Level 144 Potassium Level 3.9 Chloride Level 103 Carbon Dioxide 29 Level Anion Gap 12 Blood Urea 43 H Nitrogen Creatinine 1.36 H Est Glomerular Filtrat Rate mL/min Glucose Level 167 # Hemoglobin A1c 8.0 H Calcium Level 9.3 Phosphorus 4.1 Level Magnesium Level 1.8 Troponin I 3.200 *H Medications Medication Current Medications Atorvastatin Calcium (Lipitor) 80 mg HS PO ; Start 09/23/18 at 21:00 Enoxaparin Sodium (Lovenox) 75 mg Q24H SC Last administered on 09/23/18at 16:03; Admin Dose 75 MG; Start 09/23/18 at 13:00 Nitroglycerin (Nitroglycerin 2% Oint) 1 inch Q8 TD Last administered on 09/24/18at 05:48; Admin Dose 1 INCH; Start 09/23/18 at 14:00 Aspirin (Halfprin) 81 mg DAILY PO ; Start 09/24/18 at 09:00 IV Flush (NS 3 ml) 3 ml PER PROTOCOL IV ; Start 09/23/18 at 13:00 Lorazepam (Ativan) 0.5 mg Q8H PRN PO .ANXIETY; Start 09/23/18 at 13:00 Ondansetron HCl (Zofran Inj) 4 mg Q6H PRN IV NAUSEA/VOMITING; Start 09/23/18 at 13:00 Acetaminophen (Tylenol Tab) 650 mg Q6H PRN PO .PAIN 1-3 OR TEMP; Start 09/23/18 at 13:00 Zolpidem Tartrate (Ambien) 5 mg QHS PRN PO .INSOMNIA; Start 09/23/18 at 13:00 Docusate Sodium (Colace) 100 mg Q12H PRN PO .CONSTIPATION; Start 09/23/18 at 13:00 Magnesium Hydroxide (Milk Of Mag) 30 ml DAILY PRN PO .CONSTIPATION; Start 09/23/18 at 13:00 Felodipine (Plendil) 5 mg BID PO ; Start 09/23/18 at 21:00 Pantoprazole (Protonix Tab) 40 mg DAILY@06 PO Last administered on 09/24/18at 05:47; Admin Dose 40 MG; Start 09/24/18 at 06:00 Famotidine (Pepcid) 10 mg HS PO ; Start 09/23/18 at 21:00 Miscellaneous Information 1 ea NOTE XX ; Start 09/23/18 at 13:30 Glucose (Glutose) 15 gm Q15M PRN PO DECREASED GLUCOSE; Start 09/23/18 at 13:30 Glucose (Glutose) 22.5 gm Q15M PRN PO DECREASED GLUCOSE; Start 09/23/18 at 13:30 Dextrose (D50w Syringe) 25 ml Q15M PRN IV DECREASED GLUCOSE; Start 09/23/18 at 13:30 Dextrose (D50w Syringe) 50 ml Q15M PRN IV DECREASED GLUCOSE; Start 09/23/18 at 13:30 Glucagon (Glucagen) 1 mg Q15M PRN IM DECREASED GLUCOSE; Start 09/23/18 at 13:30 Glucose (Glutose) 15 gm Q15M PRN BUCCAL DECREASED GLUCOSE; Start 09/23/18 at 13:30 Bumetanide 25 mg/ Dextrose 250 ml @ 5 mls/hr Q24H IV Last administered on 09/23/18at 16:17; Admin Dose 5 MLS/HR; Start 09/23/18 at 16:30 Insulin Aspart (Novolog Insulin Pen) NOVOLOG *MODERATE* ALGORI... Q4 SC Last administered on 09/24/18at 05:03; Admin Dose 2 UNIT; Start 09/23/18 at 17:00 Metoprolol Tartrate (Lopressor) 2.5 mg Q6 IV ; Start 09/24/18 at 12:00 Magnesium Sulfate 50 ml @ 25 mls/hr ONCE ONCE IVPB ; Start 09/24/18 at 08:30; Stop 09/24/18 at 10:29 DONNA GENTILE 12, 2019 09:21
[2018-09-24] MEDS: LEVOFLOXACIN 500MG/D5W (PMX) 100 ML IVPB SCH (09:44)
[2018-09-24] MEDS: METOPROLOL 5 MG INJ IV SCH ×2 (11:42→17:17)
--- NOTE | 2018-09-24 12:43 | RADRPT ---
Echocardiogram Report Patient Name: DARCY MARSHPatient ID: [id number] : 1930 (88y 5m)Study Date: 09/23/2018 2:26:43 PM Gender: FAccession #: [id number] Tech: [facility] Location: [facility] Ref.Physician: WILBUR MANN Height(Cm): BSA: Weight(Kg): Quality: Technically Difficult StudyOrder Physician: WILBUR MANN Account #: Procedures: Echocardiographic Report: Transthoracic echocardiogram with complete 2D, M-Mode, and doppler examination. Indications: Congestive Heart Failure, and Shortness of breath. Measurements: 2D/M Mode Doppler Measurement Value Normal Range Measurement Value Normal Range LVIDd 2D 4.2 [ 3.8 - 5.2 ] cm PUSHPA VTI 1.1 [ 2.0 - 4.0 ] cm2 LVPWd 2D 1.0 [ 0.6 - 0.9 ] cm AV Mean Eloy 2.3 [ 70.0 - 90.0 ] cm/sec IVSd 2D 1.1 [ 0.6 - 0.9 ] cm AV Mean PG 25.0 [ 2.0 - 4.0 ] mmHg AoR Diam 2D 2.0 [ 2.3 - 3.1 ] cm AV VTI 68.8 cm EDV 2D 80.4 [ 46.0 - 106.0 ] ml LVOT Mean Eloy 0.8 [ 60.0 - 80.0 ] cm/sec LVOT Diam 2.0 [ 2.1 - 2.5 ] cm LVOT Mean PG 3.0 [ 1.0 - 3.0 ] mmHg LVOT Peak Eloy 1.2 [ 70.0 - 110.0 ] cm/sec LVOT Peak PG 5.0 [ 2.0 - 6.0 ] mmHg LVOT VTI 25.3 [ 20.0 - 30.0 ] cm MV E Peak Eloy 1.4 [ 60.0 - 130.0 ] cm/sec MV A Peak Eloy 1.0 [ 100.0 - 120.0 ] cm/sec MV E/A 1.3 [ 0.8 - 1.5 ] ratio MV Decel Time 201 [ 104 - 258 ] msec Lat E` Eloy 0.1 [ 10.0 - 15.0 ] cm/sec Lateral E/E` 10.9 [ 1.0 - 2.0 ] ratio MV E/A 1.3 [ 0.8 - 1.5 ] ratio TR Peak Eloy 2.4 [ 100.0 - 280.0 ] cm/sec TR Peak PG 24.0 mmHg RVSP 27.0 [ 10.0 - 36.0 ] mmHg RA Pressure 3.0 mmHg Findings: Left Ventricle: Normal left ventricular systolic function. Normal left ventricular cavity size. Mild concentric left ventricular hypertrophy. Ejection fraction is visually estimated at 65 %. Tissue Doppler/Mitral Doppler indices are consistent with pseudonormalization with mildly elevated left atrial pressure (Stage II diastolic dysfunction). Right Ventricle: Normal right ventricular size. Normal right ventricular systolic function. Left Atrium: The left atrium is normal in size. Right Atrium: The right atrium is normal in size. Mitral Valve: Mild mitral leaflet calcification. Mild mitral annular calcification. Mild mitral valve regurgitation. Aortic Valve: Moderate aortic stenosis. Aortic valve Max velocity 3.44 m/sec. Max PG 47.00 mmHg. Mean PG 25.00 mmHg. Aortic valve area 1.00 cm2. Mild aortic valve regurgitation. Tricuspid Valve: Normal appearance of the tricuspid valve. The estimated Peak RVSP is 27 mmHg. There is trace tricuspid regurgitation. Pulmonic Valve: Pulmonic valve not well visualized. Pericardium: Normal pericardium with no significant pericardial effusion. Aorta: Normal aortic root. IVC: Normal IVC with respiratory collapse, however patient on bipap. Conclusions: Normal LV size and systolic function with EF of 65% without obvious wall motion abnormalities. Normal pulmonary pressures. Mild MR, TR. Moderate aortic stenosis. Electronically Signed By: Wilbur Mann 2018-09-24 12:42:39 PDT
--- NOTE | 2018-09-24 13:00 | CONS ---
Assessment/Plan Cardiology Heart Failure Type: Acute Heart Failure Type: Diastolic Assessment/Plan Assessment/Plan (Daily) Impression and Recommendations: # SOB- consistent with acute CHF. Normal LV systolic function. Acute diastolic in nature however also with PNA # PNA- on BIPAP # NSTEMI- possible type 2 given underlying status however degree of troponin elevation argues against type 2 event # CHF based on hx and exam # possible short Afib episodes # DM OOC with component of DKA # CYRUS ? CKD # anemia -not clear if this is new # HTN # HL # advanced age >> agree with holding lasix although monitor fluid status >> Lovenox >> eventual DOAC >> ASA, high dose statin, uptitrate BB with Afib >> o2 >> D/c nitropaste >> Once respiratory status is improved would consider coronary angiography Consultation Date/Type/Reason Admit Date/Time Sep 23, 2018 at 07:08 Initial Consult Date 09/24/18 Type of Consult Cardiology Date/Time of Note DATE: 09/24/18 TIME: 12:57 24 HR Interval Summary Free Text/Dictation NO CP. She is in icu on bipap. No palpitations. Constitutional: improved Exam/Review of Systems Vital Signs Vitals Vital Signs Date Temp Pulse Resp B/P (MAP) Pulse Ox O2 O2 Flow FiO2 Time Delivery Rate 09/24/18 84 12:00 09/24/18 95 100 11:20 09/24/18 21 115/61 BIPAP 10:00 (79) 09/24/18 98.6 08:00 09/23/18 15.0 06:30 Intake and Output 09/23/18 09/23/18 09/24/18 1515:00 23:00 07:00 IntakeIntake Total 0 ml 25 ml 90 ml OutputOutput Total 0 ml 2275 ml 1323 ml BalanceBalance 0 ml -2250 ml -1233 ml Exam Constitutional: alert, oriented, well developed Psych: nl mood/affect Head: normocephalic, atraumatic Eyes: nl conjunctiva ENMT: nl external ears & nose Neck: supple, non-tender; No jvd Respiratory: diminished breath sounds, labored breathing (on bipap) Cardiovascular: regular rate and rhythm, systolic murmur (2/6 MSM), other (ectopic beats, ) Gastrointestinal: soft Musculoskeletal: nl extremities to inspection Extremities: No edema Neurological: LAN SPECIALIST II-XII intact Labs Result Diagram: 09/24/18 0510 09/24/18 0510 Results 24hrs Laboratory Tests Test 09/23/18 13:40 09/23/18 15:59 09/23/18 17:15 09/23/18 17:50 Blood Gas Blood arterial Blood arterial Specimen Source Arterial Blood 09/23/2018 1:55: 09/23/2018 6:15: Date Drawn 45 PM 46 PM Arterial Blood 7.422 7.430 pH (Temp corrected) Arterial Blood 35.5 35.8 pCO2 (Temp correct) Arterial Blood 49.3 *L 73.6 L pO2 (Temp corrected) Arterial Blood 22.6 23.2 HCO3 Arterial Blood -1.4 -0.6 Base Excess Arterial Blood 85.0 L 94.7 L Oxygen Saturatio n Nash Test ACCEPTAB ACCEPTAB Arterial Blood Right Radial Right Radial Gas Puncture Site Arterial 0.3 0 Blood Carboxyhem oglobin Arterial Blood 0.2 0.4 Methemoglobin Blood Gas A-a O2 628.2 H 603.6 H Differential Oxyhemoglobin 84.6 L 94.3 Percent Blood Gas 37.0 37.0 Temperature Blood Gas HFNC MASK - BIPAP Modality FiO2 100.0 100.0 Blood Gas L.JCARLOS RN Critical Value Read Back Blood Gas [place] Notified Whom Blood Gas 09/23/2018 2:05: 09/23/2018 6:35: Notified Time 06 PM 47 PM Troponin I 2.530 *H Bedside Glucose 290 H Blood Gas 20.0 Respiration Rate Blood Gas Actual 26 Respiration Rate Blood Gas 10 Pressure Support Blood Gas 15/5 IPAP/EPAP Ratio Test 09/23/18 18:20 09/23/18 20:51 09/24/18 00:58 09/24/18 05:01 Potassium Level 4.3 Bedside Glucose 201 181 170 Test 09/24/18 05:10 09/24/18 09:26 White Blood 7.1 # Count Red Blood Count 3.66 L Hemoglobin 10.2 L Hematocrit 31.5 L Mean Corpuscular 86.1 Volume Mean Corpuscular 27.9 L Hemoglobin Mean Corpuscular 32.4 Hemoglobin Pili nt Red Cell 13.4 Distribution Width Platelet Count 243 Mean Platelet 11.6 H Volume Immature 0.400 Granulocytes % Neutrophils % 80.9 H Lymphocytes % 11.8 L Monocytes % 6.6 Eosinophils % 0.0 Basophils % 0.3 Nucleated Red 0.0 Blood Cells % Immature 0.030 Granulocytes # Neutrophils # 5.7 Lymphocytes # 0.8 Monocytes # 0.5 Eosinophils # 0.0 Basophils # 0.0 Nucleated Red 0.0 Blood Cells # Sodium Level 144 Potassium Level 3.9 Chloride Level 103 Carbon Dioxide 29 Level Anion Gap 12 Blood Urea 43 H Nitrogen Creatinine 1.36 H Est Glomerular Filtrat Rate mL/min Glucose Level 167 # Hemoglobin A1c 8.0 H Calcium Level 9.3 Phosphorus Level 4.1 Magnesium Level 1.8 Troponin I 3.200 *H Bedside Glucose 218 Medications Medications Current Medications Atorvastatin Calcium (Lipitor) 80 mg HS PO ; Start 09/23/18 at 21:00 Enoxaparin Sodium (Lovenox) 75 mg Q24H SC Last administered on 09/23/18at 16:03; Admin Dose 75 MG; Start 09/23/18 at 13:00 Nitroglycerin (Nitroglycerin 2% Oint) 1 inch Q8 TD Last administered on 09/24/18at 05:48; Admin Dose 1 INCH; Start 09/23/18 at 14:00 Aspirin (Halfprin) 81 mg DAILY PO Last administered on 09/24/18at 08:46; Admin Dose 81 MG; Start 09/24/18 at 09:00 IV Flush (NS 3 ml) 3 ml PER PROTOCOL IV ; Start 09/23/18 at 13:00 Lorazepam (Ativan) 0.5 mg Q8H PRN PO .ANXIETY; Start 09/23/18 at 13:00 Ondansetron HCl (Zofran Inj) 4 mg Q6H PRN IV NAUSEA/VOMITING; Start 09/23/18 at 13:00 Acetaminophen (Tylenol Tab) 650 mg Q6H PRN PO .PAIN 1-3 OR TEMP; Start 09/23/18 at 13:00 Zolpidem Tartrate (Ambien) 5 mg QHS PRN PO .INSOMNIA; Start 09/23/18 at 13:00 Docusate Sodium (Colace) 100 mg Q12H PRN PO .CONSTIPATION; Start 09/23/18 at 13:00 Magnesium Hydroxide (Milk Of Mag) 30 ml DAILY PRN PO .CONSTIPATION; Start 09/23/18 at 13:00 Felodipine (Plendil) 5 mg BID PO Last administered on 09/24/18at 08:46; Admin Dose 5 MG; Start 09/23/18 at 21:00 Miscellaneous Information 1 ea NOTE XX ; Start 09/23/18 at 13:30 Glucose (Glutose) 15 gm Q15M PRN PO DECREASED GLUCOSE; Start 09/23/18 at 13:30 Glucose (Glutose) 22.5 gm Q15M PRN PO DECREASED GLUCOSE; Start 09/23/18 at 13:30 Dextrose (D50w Syringe) 25 ml Q15M PRN IV DECREASED GLUCOSE; Start 09/23/18 at 13:30 Dextrose (D50w Syringe) 50 ml Q15M PRN IV DECREASED GLUCOSE; Start 09/23/18 at 13:30 Glucagon (Glucagen) 1 mg Q15M PRN IM DECREASED GLUCOSE; Start 09/23/18 at 13:30 Glucose (Glutose) 15 gm Q15M PRN BUCCAL DECREASED GLUCOSE; Start 09/23/18 at 13:30 Insulin Aspart (Novolog Insulin Pen) NOVOLOG *MODERATE* ALGORI... Q4 SC Last administered on 09/24/18at 09:28; Admin Dose 4 UNIT; Start 09/23/18 at 17:00 Metoprolol Tartrate (Lopressor) 2.5 mg Q6 IV Last administered on 09/24/18at 11:42; Admin Dose 2.5 MG; Start 09/24/18 at 12:00 Aztreonam 2 gm/ Sodium Chloride 100 ml @ 100 mls/hr Q12 IVPB ; Start 09/24/18 at 21:00 Levofloxacin/ Dextrose 100 ml @ 100 mls/hr Q48H IVPB Last administered on 09/24/18at 09:44; Admin Dose 100 MLS/HR; Start 09/24/18 at 09:30 Famotidine (Pepcid Iv) 20 mg DAILY IV ; Start 09/25/18 at 09:00 NAINA MANN MD Sep 24, 2018 12:59
--- NOTE | 2018-09-24 13:05 | RADRPT ---
Vent Rate: 99 bpm RR Interval: 608 msec OH Interval: 222 msec QRS Duration: 107 msec QT Interval: 337 msec QTC Interval: 432 msec P-R-T Lyman: 98 - 78 - 219 degrees Sinus rhythm...normal P axis, V-rate 50- 99 Prolonged OH interval...OH >215, V-rate 91-120 Probable inferior infarct, age indeterminate...Q>35mS, T neg, II III aV Lateral St-T wave abn concerning for ischemia Electronically Signed By: Arsen Freedman
[2018-09-24] MEDS: ENOXAPARIN 100 MG/ML SYG SC SCH (13:31)
[2018-09-24] MEDS: ATORVASTATIN 80 MG TAB PO SCH (21:02)
[2018-09-24] MEDS: AZTREONAM 2 GM in SOD CHLORIDE 0.9% 100 ML IVPB SCH (21:03)
[2018-09-24] MEDS: POTASSIUM CHLORIDE 100 ML IVPB SCH (22:53)
[2018-09-25] VITALS (35 sets, daily range): BP systolic 89–116; BP diastolic 43–78; PULSE 68–93; RESP 13–31
[2018-09-25] MEDS: METOPROLOL 5 MG INJ IV SCH ×3 (00:19→12:00)
[2018-09-25] MEDS: POTASSIUM CHLORIDE 100 ML IVPB SCH (01:09)
[2018-09-25] MEDS: INSULIN ASPART [NOVOLOG] 3 ML PEN SC SCH ×6 (01:09→20:22)
[2018-09-25] MEDS: NITROGLYCERIN 2% 1 GM OINT PKT TD SCH (05:59)
--- NOTE | 2018-09-25 06:58 | CONS ---
Assessment/Plan Assessment/Plan Hospital Course (Demo Recall) 1) CHF, r/o pneumonia on levo/aztreanom since 09/24 check procalcitonin and if <0.25 to d/c aztreanom pt did not have some coryza before her CP and SOB so a viral etiology is possible, will order viral pcr of nares no sputum production so no cx possible but nasal for MRSA was neg of noted WBC normalized prior to start of antibiotics pt is anxious to get off biPAP so that she can drink fluids 2) increase in LFT's this is much improved, likely it represented liver congestion due to heart fa ilure 3) DM this rapidly improved since admission Consultation Date/Type/Reason Admit Date/Time Sep 23, 2018 at 07:08 Date of Consultation: Sep 25, 2018 Type of Consult ID Date/Time of Note DATE: 09/25/18 TIME: 06:48 Hx of Present Illness pt admitted due to CP and SOB, the CP has resolved but she still has SOB she relates 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 no sore throat, F, C, NS, no phlegm production no dysuria, muscle aches, joint pains, rashes no N, V, D no sick contacts no recent travel Past Medical History HTN, DM, hyperlipidemia Home Meds Reported Medications Omeprazole* (Omeprazole*) 40 Mg Capsule.dr, 40 MG PO DAILY, #30 CAP 09/23/18 Ferrous Sulfate* (Ferrous Sulfate*) 325 Mg Tabec, 325 MG PO TID, TAB 09/23/18 Felodipine* (Felodipine*) 5 Mg Tab.sr.24h, 5 MG PO BID, TAB.SA 09/23/18 Ascorbic Acid* (Vitamin C*) 500 Mg Capsule.sa, 500 MG PO DAILY, CAP 09/23/18 Metformin Hcl* (Metformin Hcl*) 500 Mg Tablet, 2000 MG PO WITH BREAKFAST DINNE, #60 TAB 09/23/18 Atorvastatin Calcium* (Atorvastatin Calcium*) 20 Mg Tablet, 20 MG PO QHS, #30 TAB 09/23/18 Losartan-Hydrochlorothiazide (Losartan-HCTZ) 100-25 Mg Tab, 1 TAB PO DAILY, TAB 09/23/18 Discontinued Reported Medications Omeprazole* (Omeprazole*) 40 Mg Capsule.dr, 40 MG PO DAILY, #30 CAP 2/28/17 Ferrous Sulfate* (Ferrous Sulfate*) 325 Mg Tabec, 325 MG PO DAILY, TAB 06/12/16 Felodipine* (Felodipine*) 5 Mg Tab.sr.24h, 5 MG PO DAILY, TAB.SA 06/12/16 Ascorbic Acid* (Vitamin C*) 500 Mg Capsule.sa, 500 MG PO DAILY, CAP 06/12/16 Metformin Hcl* (Metformin Hcl*) 500 Mg Tablet, 2000 MG PO WITH BREAKFAST DINNE, #30 TAB 06/12/16 Atorvastatin Calcium* (Atorvastatin Calcium*) 20 Mg Tablet, 20 MG PO QHS, #30 TAB 06/12/16 Losartan-Hydrochlorothiazide (Losartan-HCTZ) 100-25 Mg Tab, 1 TAB PO DAILY, TAB 06/12/16 Medications Current Medications Atorvastatin Calcium (Lipitor) 80 mg HS PO Last administered on 09/24/18at 21:02; Admin Dose 80 MG; Start 09/23/18 at 21:00 Enoxaparin Sodium (Lovenox) 75 mg Q24H SC Last administered on 09/24/18at 13:31; Admin Dose 75 MG; Start 09/23/18 at 13:00 Nitroglycerin (Nitroglycerin 2% Oint) 1 inch Q8 TD Last administered on 09/25/18at 05:59; Admin Dose 1 INCH; Start 09/23/18 at 14:00 Aspirin (Halfprin) 81 mg DAILY PO Last administered on 09/24/18at 08:46; Admin Dose 81 MG; Start 09/24/18 at 09:00 IV Flush (NS 3 ml) 3 ml PER PROTOCOL IV ; Start 09/23/18 at 13:00 Lorazepam (Ativan) 0.5 mg Q8H PRN PO .ANXIETY; Start 09/23/18 at 13:00 Ondansetron HCl (Zofran Inj) 4 mg Q6H PRN IV NAUSEA/VOMITING; Start 09/23/18 at 13:00 Acetaminophen (Tylenol Tab) 650 mg Q6H PRN PO .PAIN 1-3 OR TEMP; Start 09/23/18 at 13:00 Zolpidem Tartrate (Ambien) 5 mg QHS PRN PO .INSOMNIA; Start 09/23/18 at 13:00 Docusate Sodium (Colace) 100 mg Q12H PRN PO .CONSTIPATION; Start 09/23/18 at 13:00 Magnesium Hydroxide (Milk Of Mag) 30 ml DAILY PRN PO .CONSTIPATION; Start 09/23/18 at 13:00 Felodipine (Plendil) 5 mg BID PO Last administered on 09/24/18at 21:02; Admin Dose 5 MG; Start 09/23/18 at 21:00 Miscellaneous Information 1 ea NOTE XX ; Start 09/23/18 at 13:30 Glucose (Glutose) 15 gm Q15M PRN PO DECREASED GLUCOSE; Start 09/23/18 at 13:30 Glucose (Glutose) 22.5 gm Q15M PRN PO DECREASED GLUCOSE; Start 09/23/18 at 13:30 Dextrose (D50w Syringe) 25 ml Q15M PRN IV DECREASED GLUCOSE; Start 09/23/18 at 13:30 Dextrose (D50w Syringe) 50 ml Q15M PRN IV DECREASED GLUCOSE; Start 09/23/18 at 13:30 Glucagon (Glucagen) 1 mg Q15M PRN IM DECREASED GLUCOSE; Start 09/23/18 at 13:30 Glucose (Glutose) 15 gm Q15M PRN BUCCAL DECREASED GLUCOSE; Start 09/23/18 at 13:30 Insulin Aspart (Novolog Insulin Pen) NOVOLOG *MODERATE* ALGORI... Q4 SC Last administered on 09/25/18at 05:20; Admin Dose 2 UNIT; Start 09/23/18 at 17:00 Metoprolol Tartrate (Lopressor) 2.5 mg Q6 IV Last administered on 09/25/18at 06:04; Admin Dose 2.5 MG; Start 09/24/18 at 12:00 Aztreonam 2 gm/ Sodium Chloride 100 ml @ 100 mls/hr Q12 IVPB Last administered on 09/24/18at 21:03; Admin Dose 100 MLS/HR; Start 09/24/18 at 21:00 Levofloxacin/ Dextrose 100 ml @ 100 mls/hr Q48H IVPB Last administered on 09/24/18at 09:44; Admin Dose 100 MLS/HR; Start 09/24/18 at 09:30 Famotidine (Pepcid Iv) 20 mg DAILY IV ; Start 09/25/18 at 09:00 Allergies: Coded Allergies: Penicillins (Verified Allergy, Severe, SWELLING, 09/23/18) Past Surgical History L breast lumpectomy, L foot bunionectomy Social History Alcohol Use: none Smoking Status: Never smoker Drug Use: none Exam/Review of Systems Exam Vitals Vital Signs Date Temp Pulse Resp B/P (MAP) Pulse Ox O2 O2 Flow FiO2 Time Delivery Rate 09/25/18 79 20 110/52 99 BIPAP 06:00 (71) 09/25/18 80 05:05 09/25/18 99.2 04:00 09/23/18 15.0 06:30 Intake and Output 09/24/18 09/24/18 09/25/18 1515:00 23:00 07:00 IntakeIntake Total 560 ml 500 ml 50 ml OutputOutput Total 800 ml 575 ml 280 ml BalanceBalance -240 ml -75 ml -230 ml Constitutional: alert, oriented Eyes: nl sclera ENMT: other (pt on biPAP) Respiratory: clear to auscultation (anteriorly clear) Cardiovascular: regular rate and rhythm Gastrointestinal: soft, non-tender Extremities: other (moose LE edema) Neurological: other (non focal) Results Result Diagram: 09/25/185 09/25/185 Results 24hrs Laboratory Tests Test 09/24/18 09:26 09/24/18 13:26 09/24/18 17:13 09/24/18 21:12 Bedside Glucose 218 186 148 148 Test 09/24/18 21:49 09/25/18 01:06 09/25/18 04:45 09/25/18 05:11 Potassium Level 3.2 L 3.7 Bedside Glucose 141 159 White Blood Count 6.2 Red Blood Count 3.28 L Hemoglobin 9.3 L Hematocrit 29.2 L Mean Corpuscular 89.0 Volume Mean Corpuscular 28.4 L Hemoglobin Mean Corpuscular 31.8 L Hemoglobin Concent Red Cell 13.5 Distribution Width Platelet Count 215 Mean Platelet Volume 11.9 H Immature 0.300 Granulocytes % Neutrophils % 74.1 Lymphocytes % 15.9 Monocytes % 9.4 Eosinophils % 0.0 Basophils % 0.3 Nucleated Red Blood 0.0 Cells % Immature 0.020 Granulocytes # Neutrophils # 4.6 Lymphocytes # 1.0 Monocytes # 0.6 Eosinophils # 0.0 Basophils # 0.0 Nucleated Red Blood 0.0 Cells # Sodium Level 140 Chloride Level 103 Carbon Dioxide Level 28 Anion Gap 9 Blood Urea Nitrogen 52 H Creatinine 1.50 H Est Glomerular Filtrat Rate mL/min Glucose Level 155 Calcium Level 9.2 Phosphorus Level 3.9 Magnesium Level 2.3 Total Bilirubin 0.7 Direct Bilirubin 0.00 Indirect Bilirubin 0.7 Aspartate Amino 28 Transf (AST/SGOT) Alanine 70 H Aminotransferase (AL T/SGPT) Alkaline Phosphatase 90 Total Protein 6.4 Albumin 3.6 Globulin 2.80 Albumin/Globulin 1.28 Ratio Medications Medication Current Medications Atorvastatin Calcium (Lipitor) 80 mg HS PO Last administered on 09/24/18at 21:02; Admin Dose 80 MG; Start 09/23/18 at 21:00 Enoxaparin Sodium (Lovenox) 75 mg Q24H SC Last administered on 09/24/18 13:31; Admin Dose 75 MG; Start 09/23/18 at 13:00 Nitroglycerin (Nitroglycerin 2% Oint) 1 inch Q8 TD Last administered on 09/25/18at 05:59; Admin Dose 1 INCH; Start 09/23/18 at 14:00 Aspirin (Halfprin) 81 mg DAILY PO Last administered on 09/24/18at 08:46; Admin Dose 81 MG; Start 09/24/18 at 09:00 IV Flush (NS 3 ml) 3 ml PER PROTOCOL IV ; Start 09/23/18 at 13:00 Lorazepam (Ativan) 0.5 mg Q8H PRN PO .ANXIETY; Start 09/23/18 at 13:00 Ondansetron HCl (Zofran Inj) 4 mg Q6H PRN IV NAUSEA/VOMITING; Start 09/23/18 at 13:00 Acetaminophen (Tylenol Tab) 650 mg Q6H PRN PO .PAIN 1-3 OR TEMP; Start 09/23/18 at 13:00 Zolpidem Tartrate (Ambien) 5 mg QHS PRN PO .INSOMNIA; Start 09/23/18 at 13:00 Docusate Sodium (Colace) 100 mg Q12H PRN PO .CONSTIPATION; Start 09/23/18 at 13:00 Magnesium Hydroxide (Milk Of Mag) 30 ml DAILY PRN PO .CONSTIPATION; Start 09/23/18 at 13:00 Felodipine (Plendil) 5 mg BID PO Last administered on 09/24/18at 21:02; Admin Dose 5 MG; Start 09/23/18 at 21:00 Miscellaneous Information 1 ea NOTE XX ; Start 09/23/18 at 13:30 Glucose (Glutose) 15 gm Q15M PRN PO DECREASED GLUCOSE; Start 09/23/18 at 13:30 Glucose (Glutose) 22.5 gm Q15M PRN PO DECREASED GLUCOSE; Start 09/23/18 at 13:30 Dextrose (D50w Syringe) 25 ml Q15M PRN IV DECREASED GLUCOSE; Start 09/23/18 at 13:30 Dextrose (D50w Syringe) 50 ml Q15M PRN IV DECREASED GLUCOSE; Start 09/23/18 at 13:30 Glucagon (Glucagen) 1 mg Q15M PRN IM DECREASED GLUCOSE; Start 09/23/18 at 13:30 Glucose (Glutose) 15 gm Q15M PRN BUCCAL DECREASED GLUCOSE; Start 09/23/18 at 13:30 Insulin Aspart (Novolog Insulin Pen) NOVOLOG *MODERATE* ALGORI... Q4 SC Last administered on 09/25/18at 05:20; Admin Dose 2 UNIT; Start 09/23/18 at 17:00 Metoprolol Tartrate (Lopressor) 2.5 mg Q6 IV Last administered on 09/25/18at 06:04; Admin Dose 2.5 MG; Start 09/24/18 at 12:00 Aztreonam 2 gm/ Sodium Chloride 100 ml @ 100 mls/hr Q12 IVPB Last administered on 09/24/18at 21:03; Admin Dose 100 MLS/HR; Start 09/24/18 at 21:00 Levofloxacin/ Dextrose 100 ml @ 100 mls/hr Q48H IVPB Last administered on 09/24/18at 09:44; Admin Dose 100 MLS/HR; Start 09/24/18 at 09:30 Famotidine (Pepcid Iv) 20 mg DAILY IV ; Start 09/25/18 at 09:00 HARPREET HALE MD Sep 25, 2018 06:58
[2018-09-25] MEDS: ASPIRIN (EC) 81 MG TAB PO SCH (08:20)
[2018-09-25] MEDS: FELODIPINE (ER) 5 MG TAB PO SCH ×2 (08:20→20:20)
[2018-09-25] MEDS: FAMOTIDINE 20 MG INJ IV SCH (08:20)
--- NOTE | 2018-09-25 08:22 | PN ---
Date/Time of Note Date/Time of Note DATE: 09/25/18 TIME: 08:16 Assessment/Plan VTE Prophylaxis [place] [facility] [place] risk: 8 SCD applied (from [facility] [place] Yes Pharmacological prophylaxis: LMWH Pharm contraindication: other Lines/Catheters IV Catheter Type (from [facility]): Peripheral IV Urinary Cath still in place: Yes Reason Cath still needed: urinary retention Assessment/Plan Hospital Course 1. Congestive heart failure /pneumonia. She seems improved. Chest x-ray is pending for today. 2. Renal failure. Her renal function is better today. Her urine output has dropped off since the Bumex drip was discontinued. Will monitor urine output this morning. If low urine output may restart some diuretics. 3. Respiratory failure requiring BiPAP. 4. Elevated troponin levels being seen by cardiology 5. Hypertension 6. Type 2 diabetes mellitus being controlled. 7. Iron deficiency anemia. Patient to start a course of Ferrlicit, IV iron r eplacement. Result Diagram: 09/25/18 0445 09/25/18 0445 Results 24hrs Laboratory Tests Test 09/24/18 09:26 09/24/18 13:26 09/24/18 17:13 09/24/18 21:12 Bedside Glucose 218 186 148 148 Test 09/24/18 21:49 09/25/18 01:06 09/25/18 04:45 09/25/18 05:11 Potassium Level 3.2 L 3.7 Bedside Glucose 141 159 White Blood Count 6.2 Red Blood Count 3.28 L Hemoglobin 9.3 L Hematocrit 29.2 L Mean Corpuscular 89.0 Volume Mean Corpuscular 28.4 L Hemoglobin Mean Corpuscular 31.8 L Hemoglobin Concent Red Cell 13.5 Distribution Width Platelet Count 215 Mean Platelet Volume 11.9 H Immature 0.300 Granulocytes % Neutrophils % 74.1 Lymphocytes % 15.9 Monocytes % 9.4 Eosinophils % 0.0 Basophils % 0.3 Nucleated Red Blood 0.0 Cells % Immature 0.020 Granulocytes # Neutrophils # 4.6 Lymphocytes # 1.0 Monocytes # 0.6 Eosinophils # 0.0 Basophils # 0.0 Nucleated Red Blood 0.0 Cells # Sodium Level 140 Chloride Level 103 Carbon Dioxide Level 28 Anion Gap 9 Blood Urea Nitrogen 52 H Creatinine 1.50 H Est Glomerular Filtrat Rate mL/min Glucose Level 155 Calcium Level 9.2 Phosphorus Level 3.9 Magnesium Level 2.3 Total Bilirubin 0.7 Direct Bilirubin 0.00 Indirect Bilirubin 0.7 Aspartate Amino 28 Transf (AST/SGOT) Alanine 70 H Aminotransferase (AL T/SGPT) Alkaline Phosphatase 90 Total Protein 6.4 Albumin 3.6 Globulin 2.80 Albumin/Globulin 1.28 Ratio Subjective 24 Hr Interval Summary Free Text/Dictation This patient is being seen in the intensive care unit. She is awake and alert. She has a BiPAP mask on because of hypoxia. She complains of dry mouth and wants water. Constitutional: improved Respiratory: shortness of breath Cardiovascular: edema Gastrointestinal: no complaints Genitourinary: no complaints Musculoskeletal: no complaints Neurologic: no complaints Exam/Review of Systems Exam Vitals Vital Signs Date Temp Pulse Resp B/P (MAP) Pulse Ox O2 O2 Flow FiO2 Time Delivery Rate 09/25/18 79 20 110/52 99 BIPAP 06:00 (71) 09/25/18 80 05:05 09/25/18 99.2 04:00 09/23/18 15.0 06:30 Intake and Output 09/24/18 09/24/18 09/25/18 1515:00 23:00 07:00 IntakeIntake Total 560 ml 500 ml 50 ml OutputOutput Total 800 ml 575 ml 280 ml BalanceBalance -240 ml -75 ml -230 ml Constitutional: alert, oriented, well developed Respiratory: clear to auscultation, normal air movement Cardiovascular: regular rate and rhythm, edema Gastrointestinal: soft, non-tender Extremities: edema Results Results 24hrs Laboratory Tests Test 09/24/18 09:26 09/24/18 13:26 09/24/18 17:13 09/24/18 21:12 Bedside Glucose 218 186 148 148 Test 09/24/18 21:49 09/25/18 01:06 09/25/18 04:45 09/25/18 05:11 Potassium Level 3.2 L 3.7 Bedside Glucose 141 159 White Blood Count 6.2 Red Blood Count 3.28 L Hemoglobin 9.3 L Hematocrit 29.2 L Mean Corpuscular 89.0 Volume Mean Corpuscular 28.4 L Hemoglobin Mean Corpuscular 31.8 L Hemoglobin Concent Red Cell 13.5 Distribution Width Platelet Count 215 Mean Platelet Volume 11.9 H Immature 0.300 Granulocytes % Neutrophils % 74.1 Lymphocytes % 15.9 Monocytes % 9.4 Eosinophils % 0.0 Basophils % 0.3 Nucleated Red Blood 0.0 Cells % Immature 0.020 Granulocytes # Neutrophils # 4.6 Lymphocytes # 1.0 Monocytes # 0.6 Eosinophils # 0.0 Basophils # 0.0 Nucleated Red Blood 0.0 Cells # Sodium Level 140 Chloride Level 103 Carbon Dioxide Level 28 Anion Gap 9 Blood Urea Nitrogen 52 H Creatinine 1.50 H Est Glomerular Filtrat Rate mL/min Glucose Level 155 Calcium Level 9.2 Phosphorus Level 3.9 Magnesium Level 2.3 Total Bilirubin 0.7 Direct Bilirubin 0.00 Indirect Bilirubin 0.7 Aspartate Amino 28 Transf (AST/SGOT) Alanine 70 H Aminotransferase (AL T/SGPT) Alkaline Phosphatase 90 Total Protein 6.4 Albumin 3.6 Globulin 2.80 Albumin/Globulin 1.28 Ratio Medications Medication Current Medications Atorvastatin Calcium (Lipitor) 80 mg HS PO Last administered on 09/24/18at 21:02; Admin Dose 80 MG; Start 09/23/18 at 21:00 Enoxaparin Sodium (Lovenox) 75 mg Q24H SC Last administered on 09/24/18at 13:31; Admin Dose 75 MG; Start 09/23/18 at 13:00 Aspirin (Halfprin) 81 mg DAILY PO Last administered on 09/24/18at 08:46; Admin Dose 81 MG; Start 09/24/18 at 09:00 IV Flush (NS 3 ml) 3 ml PER PROTOCOL IV ; Start 09/23/18 at 13:00 Lorazepam (Ativan) 0.5 mg Q8H PRN PO .ANXIETY; Start 09/23/18 at 13:00 Ondansetron HCl (Zofran Inj) 4 mg Q6H PRN IV NAUSEA/VOMITING; Start 09/23/18 at 13:00 Acetaminophen (Tylenol Tab) 650 mg Q6H PRN PO .PAIN 1-3 OR TEMP; Start 09/23/18 at 13:00 Zolpidem Tartrate (Ambien) 5 mg QHS PRN PO .INSOMNIA; Start 09/23/18 at 13:00 Docusate Sodium (Colace) 100 mg Q12H PRN PO .CONSTIPATION; Start 09/23/18 at 13:00 Magnesium Hydroxide (Milk Of Mag) 30 ml DAILY PRN PO .CONSTIPATION; Start 09/23/18 at 13:00 Felodipine (Plendil) 5 mg BID PO Last administered on 09/24/18at 21:02; Admin Dose 5 MG; Start 09/23/18 at 21:00 Miscellaneous Information 1 ea NOTE XX ; Start 09/23/18 at 13:30 Glucose (Glutose) 15 gm Q15M PRN PO DECREASED GLUCOSE; Start 09/23/18 at 13:30 Glucose (Glutose) 22.5 gm Q15M PRN PO DECREASED GLUCOSE; Start 09/23/18 at 13:30 Dextrose (D50w Syringe) 25 ml Q15M PRN IV DECREASED GLUCOSE; Start 09/23/18 at 13:30 Dextrose (D50w Syringe) 50 ml Q15M PRN IV DECREASED GLUCOSE; Start 09/23/18 at 13:30 Glucagon (Glucagen) 1 mg Q15M PRN IM DECREASED GLUCOSE; Start 09/23/18 at 13:30 Glucose (Glutose) 15 gm Q15M PRN BUCCAL DECREASED GLUCOSE; Start 09/23/18 at 13:30 Insulin Aspart (Novolog Insulin Pen) NOVOLOG *MODERATE* ALGORI... Q4 SC Last administered on 09/25/18at 05:20; Admin Dose 2 UNIT; Start 09/23/18 at 17:00 Metoprolol Tartrate (Lopressor) 2.5 mg Q6 IV Last administered on 09/25/18at 06:04; Admin Dose 2.5 MG; Start 09/24/18 at 12:00 Aztreonam 2 gm/ Sodium Chloride 100 ml @ 100 mls/hr Q12 IVPB Last administered on 09/24/18at 21:03; Admin Dose 100 MLS/HR; Start 09/24/18 at 21:00 Levofloxacin/ Dextrose 100 ml @ 100 mls/hr Q48H IVPB Last administered on 09/24/18at 09:44; Admin Dose 100 MLS/HR; Start 09/24/18 at 09:30 Famotidine (Pepcid Iv) 20 mg DAILY IV ; Start 09/25/18 at 09:00 Ferric Sodium Gluconate Complex 125 mg/Sodium Chloride 110 ml @ 110 mls/hr DAILY@1300 IVPB ; Start 09/25/18 at 13:00; Stop 09/29/18 at 13:59; Status GENARO FERNANDEZ MD Sep 25, 2018 08:22
[2018-09-25] MEDS: AZTREONAM 2 GM in SOD CHLORIDE 0.9% 100 ML IVPB SCH ×2 (08:49→20:19)
--- NOTE | 2018-09-25 09:26 | CONS ---
Assessment/Plan Assessment/Plan Assessment/Plan (Daily) Chest x-ray was reviewed from today which went significant improvement in right- sided pneumonia. Patient is currently on BiPAP 14/5 70% FiO2. Assessment and recommendations; 1. Patient admitted with shortness of breath with bilateral pneumonia mostly in right lung with interval clinical and radiological improvement. 2. Possibly non-STEMI. 3. History of diabetes and hypertension. 4. History of hyperlipidemia. 5. Some element of pulmonary edema as well. Continue current supportive care. Continue current antibiotics. Obtain follow- up chest x-ray 24 hours as well. Consultation Date/Type/Reason Admit Date/Time Sep 23, 2018 at 07:08 Initial Consult Date 09/25/18 Type of Consult Pulmonary/critical care Patient is an 88-year-old lady who was brought into the emergency room yesterday with a 2-day history of increasing shortness of breath and chest pressure. Upon evaluation patient had mild elevation of troponins as well as elevation in BNP level. Chest x-ray showed pulmonary edema, patient has been transferred to ICU and started on BiPAP. Patient also has been on Bumex drip with adequate urine output. Patient reports very little improvement in symptoms of shortness of breath since yesterday. Denies any further chest pain, complains of scant cough with production of clear sputum. Denies any fever chills any body aches or myalgias. According to her she was fine until 2 days ago when the symptoms started. Past medical history; 1. History of hypertension and diabetes. Medications; reviewed. Allergies; penicillin. Social history; patient never smoked. Family history; she is a . Occupational history; noncontributory. Review of systems; complains of cough with mild shortness of breath. Denies any abdominal pain, nausea vomiting. Any fever chills. Patient is on BiPAP therefore a limited review of systems could be obtained. General exam; elderly lady, on BiPAP. Awake and alert. Currently no distress. Date/Time of Note DATE: 09/25/18 TIME: 09:24 24 HR Interval Summary Free Text/Dictation Patient's condition has improved since yesterday. Patient reports decreased shortness of breath. Denies any chest pain, angina, wheezing any fever. General exam; elderly female, awake alert, on BiPAP. Currently in no distress. Exam/Review of Systems Exam Vitals Vital Signs Date Temp Pulse Resp B/P (MAP) Pulse Ox O2 O2 Flow FiO2 Time Delivery Rate 09/25/18 76 08:00 09/25/18 20 110/52 99 BIPAP 06:00 (71) 09/25/18 80 05:05 09/25/18 99.2 04:00 09/23/18 15.0 06:30 Intake and Output 09/24/18 09/24/18 09/25/18 1515:00 23:00 07:00 IntakeIntake Total 560 ml 500 ml 50 ml OutputOutput Total 800 ml 575 ml 280 ml BalanceBalance -240 ml -75 ml -230 ml Exam H EENT exam; supple neck, no JVD. No lymphadenopathy. Midline trachea. No thyromegaly. Patient has fair dentition. No neck masses. Chest exam; diminished breath sounds bilaterally. S1-S2 audible, no murmurs. Abdomen exam; soft, nontender. No organomegaly. Bowel sounds audible. Extremity exam; no peripheral edema clubbing. 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 Results Result Diagram: 09/25/18 0445 09/25/18 0445 Results 24hrs Laboratory Tests Test 09/24/18 09:26 09/24/18 13:26 09/24/18 17:13 09/24/18 21:12 Bedside Glucose 218 186 148 148 Test 09/24/18 21:49 09/25/18 01:06 09/25/18 04:45 09/25/18 05:11 Potassium Level 3.2 L 3.7 Bedside Glucose 141 159 White Blood Count 6.2 Red Blood Count 3.28 L Hemoglobin 9.3 L Hematocrit 29.2 L Mean Corpuscular 89.0 Volume Mean Corpuscular 28.4 L Hemoglobin Mean Corpuscular 31.8 L Hemoglobin Concent Red Cell 13.5 Distribution Width Platelet Count 215 Mean Platelet Volume 11.9 H Immature 0.300 Granulocytes % Neutrophils % 74.1 Lymphocytes % 15.9 Monocytes % 9.4 Eosinophils % 0.0 Basophils % 0.3 Nucleated Red Blood 0.0 Cells % Immature 0.020 Granulocytes # Neutrophils # 4.6 Lymphocytes # 1.0 Monocytes # 0.6 Eosinophils # 0.0 Basophils # 0.0 Nucleated Red Blood 0.0 Cells # Sodium Level 140 Chloride Level 103 Carbon Dioxide Level 28 Anion Gap 9 Blood Urea Nitrogen 52 H Creatinine 1.50 H Est Glomerular Filtrat Rate mL/min Glucose Level 155 Calcium Level 9.2 Phosphorus Level 3.9 Magnesium Level 2.3 Total Bilirubin 0.7 Direct Bilirubin 0.00 Indirect Bilirubin 0.7 Aspartate Amino 28 Transf (AST/SGOT) Alanine 70 H Aminotransferase (AL T/SGPT) Alkaline Phosphatase 90 Total Protein 6.4 Albumin 3.6 Globulin 2.80 Albumin/Globulin 1.28 Ratio Test 09/25/18 08:47 Bedside Glucose 162 Medications Medication Current Medications Atorvastatin Calcium (Lipitor) 80 mg HS PO Last administered on 09/24/18at 21:0 2; Admin Dose 80 MG; Start 09/23/18 at 21:00 Enoxaparin Sodium (Lovenox) 75 mg Q24H SC Last administered on 09/24/18at 13:31; Admin Dose 75 MG; Start 09/23/18 at 13:00 Aspirin (Halfprin) 81 mg DAILY PO Last administered on 09/25/18at 08:20; Admin Dose 81 MG; Start 09/24/18 at 09:00 IV Flush (NS 3 ml) 3 ml PER PROTOCOL IV ; Start 09/23/18 at 13:00 Lorazepam (Ativan) 0.5 mg Q8H PRN PO .ANXIETY; Start 09/23/18 at 13:00 Ondansetron HCl (Zofran Inj) 4 mg Q6H PRN IV NAUSEA/VOMITING; Start 09/23/18 at 13:00 Acetaminophen (Tylenol Tab) 650 mg Q6H PRN PO .PAIN 1-3 OR TEMP; Start 09/23/18 at 13:00 Zolpidem Tartrate (Ambien) 5 mg QHS PRN PO .INSOMNIA; Start 09/23/18 at 13:00 Docusate Sodium (Colace) 100 mg Q12H PRN PO .CONSTIPATION; Start 09/23/18 at 13:00 Magnesium Hydroxide (Milk Of Mag) 30 ml DAILY PRN PO .CONSTIPATION; Start 09/23/18 at 13:00 Felodipine (Plendil) 5 mg BID PO Last administered on 09/25/18at 08:20; Admin Dose 5 MG; Start 09/23/18 at 21:00 Miscellaneous Information 1 ea NOTE XX ; Start 09/23/18 at 13:30 Glucose (Glutose) 15 gm Q15M PRN PO DECREASED GLUCOSE; Start 09/23/18 at 13:30 Glucose (Glutose) 22.5 gm Q15M PRN PO DECREASED GLUCOSE; Start 09/23/18 at 13:30 Dextrose (D50w Syringe) 25 ml Q15M PRN IV DECREASED GLUCOSE; Start 09/23/18 at 13:30 Dextrose (D50w Syringe) 50 ml Q15M PRN IV DECREASED GLUCOSE; Start 09/23/18 at 13:30 Glucagon (Glucagen) 1 mg Q15M PRN IM DECREASED GLUCOSE; Start 09/23/18 at 13:30 Glucose (Glutose) 15 gm Q15M PRN BUCCAL DECREASED GLUCOSE; Start 09/23/18 at 13:30 Insulin Aspart (Novolog Insulin Pen) NOVOLOG *MODERATE* ALGORI... Q4 SC Last administered on 09/25/18at 08:50; Admin Dose 2 UNIT; Start 09/23/18 at 17:00 Metoprolol Tartrate (Lopressor) 2.5 mg Q6 IV Last administered on 09/25/18at 06:04; Admin Dose 2.5 MG; Start 09/24/18 at 12:00 Aztreonam 2 gm/ Sodium Chloride 100 ml @ 100 mls/hr Q12 IVPB Last administered on 09/25/18at 08:49; Admin Dose 100 MLS/HR; Start 09/24/18 at 21:00 Levofloxacin/ Dextrose 100 ml @ 100 mls/hr Q48H IVPB Last administered on 09/24/18at 09:44; Admin Dose 100 MLS/HR; Start 09/24/18 at 09:30 Famotidine (Pepcid Iv) 20 mg DAILY IV Last administered on 09/25/18at 08:20; Admin Dose 20 MG; Start 09/25/18 at 09:00 Ferric Sodium Gluconate Complex 125 mg/Sodium Chloride 110 ml @ 110 mls/hr DAILY@1300 IVPB ; Start 09/25/18 at 13:00; Stop 09/29/18 at 13:59 DONNA GENTILE 13, 2019 09:26
[2018-09-25] MEDS: ENOXAPARIN 100 MG/ML SYG SC SCH (12:24)
[2018-09-25] MEDS: SOD FERRIC GLUC COMPLX 125 MG in SOD CHLORIDE 0.9% 100 ML IVPB SCH (12:32)
[2018-09-25] MEDS: ACETAMINOPHEN 325 MG TAB PO PRN ×2 (12:33→20:20)
--- NOTE | 2018-09-25 12:53 | CONS ---
Assessment/Plan Cardiology Heart Failure Type: Acute Heart Failure Type: Diastolic Assessment/Plan Assessment/Plan (Daily) Impression and Recommendations: # SOB- consistent with acute CHF and PNA. Normal LV systolic function. Acute diastolic CHF # PNA- on BIPAP - hopefully can be weaned # NSTEMI- possible type 2 given underlying status however degree of troponin elevation argues against type 2 event # CHF based on hx and exam # possible short Afib episodes # DM OOC with component of DKA # CYRUS ? CKD # anemia -not clear if this is new # HTN # HL # advanced age >> One dose IV lasix now >> monitor renal function >> Lovenox >> Eventual DOAC >> ASA, high dose statin, uptitrate BB with Afib as needed >> o2 >> D/c nitropaste >> Keep K >4 Mg >2 >> Once respiratory status is improved would consider coronary angiography Consultation Date/Type/Reason Admit Date/Time Sep 23, 2018 at 07:08 Initial Consult Date 09/24/18 Type of Consult Cardiology Date/Time of Note DATE: 09/25/18 TIME: 12:49 24 HR Interval Summary Free Text/Dictation Feels overall better. No CP or Palpitations Exam/Review of Systems Vital Signs Vitals Vital Signs Date Temp Pulse Resp B/P (MAP) Pulse Ox O2 O2 Flow FiO2 Time Delivery Rate 09/25/18 99.7 12:33 09/25/18 84 12:00 09/25/18 21 89/63 (72) 98 BIPAP 11:00 09/25/18 80 05:05 09/23/18 15.0 06:30 Intake and Output 09/24/18 09/24/18 09/25/18 1515:00 23:00 07:00 IntakeIntake Total 560 ml 500 ml 50 ml OutputOutput Total 800 ml 575 ml 280 ml BalanceBalance -240 ml -75 ml -230 ml Exam Constitutional: alert, oriented Psych: no complaints, nl mood/affect Head: normocephalic, atraumatic Eyes: nl conjunctiva ENMT: nl external ears & nose Neck: jvd (mild) Respiratory: other (minimal rales only) Cardiovascular: regular rate and rhythm, edema Gastrointestinal: soft Neurological: SUPERINTENDENT TRACK II-XII intact Labs Result Diagram: 09/25/1844409/25/18444 Results 24hrs Laboratory Tests Test 09/24/18 13:26 09/24/18 17:13 09/24/18 21:12 09/24/18 21:49 Bedside Glucose 186 148 148 Potassium Level 3.2 L Test 09/25/18 01:06 09/25/18 04:45 09/25/18 05:11 09/25/18 08:47 Bedside Glucose 141 159 162 White Blood Count 6.2 Red Blood Count 3.28 L Hemoglobin 9.3 L Hematocrit 29.2 L Mean Corpuscular 89.0 Volume Mean Corpuscular 28.4 L Hemoglobin Mean Corpuscular 31.8 L Hemoglobin Concent Red Cell 13.5 Distribution Width Platelet Count 215 Mean Platelet Volume 11.9 H Immature 0.300 Granulocytes % Neutrophils % 74.1 Lymphocytes % 15.9 Monocytes % 9.4 Eosinophils % 0.0 Basophils % 0.3 Nucleated Red Blood 0.0 Cells % Immature 0.020 Granulocytes # Neutrophils # 4.6 Lymphocytes # 1.0 Monocytes # 0.6 Eosinophils # 0.0 Basophils # 0.0 Nucleated Red Blood 0.0 Cells # Sodium Level 140 Potassium Level 3.7 Chloride Level 103 Carbon Dioxide Level 28 Anion Gap 9 Blood Urea Nitrogen 52 H Creatinine 1.50 H Est Glomerular Filtrat Rate mL/min Glucose Level 155 Calcium Level 9.2 Phosphorus Level 3.9 Magnesium Level 2.3 Total Bilirubin 0.7 Direct Bilirubin 0.00 Indirect Bilirubin 0.7 Aspartate Amino 28 Transf (AST/SGOT) Alanine 70 H Aminotransferase (AL T/SGPT) Alkaline Phosphatase 90 Total Protein 6.4 Albumin 3.6 Globulin 2.80 Albumin/Globulin 1.28 Ratio Procalcitonin 0.75 H Test 09/25/18 12:22 Bedside Glucose 145 Medications Medications Current Medications Atorvastatin Calcium (Lipitor) 80 mg HS PO Last administered on 09/24/18at 21:02; Admin Dose 80 MG; Start 09/23/18 at 21:00 Enoxaparin Sodium (Lovenox) 75 mg Q24H SC Last administered on 09/25/18at 12:24; Admin Dose 75 MG; Start 09/23/18 at 13:00 Aspirin (Halfprin) 81 mg DAILY PO Last administered on 09/25/18at 08:20; Admin Dose 81 MG; Start 09/24/18 at 09:00 IV Flush (NS 3 ml) 3 ml PER PROTOCOL IV ; Start 09/23/18 at 13:00 Lorazepam (Ativan) 0.5 mg Q8H PRN PO .ANXIETY; Start 09/23/18 at 13:00 Ondansetron HCl (Zofran Inj) 4 mg Q6H PRN IV NAUSEA/VOMITING; Start 09/23/18 at 13:00 Acetaminophen (Tylenol Tab) 650 mg Q6H PRN PO .PAIN 1-3 OR TEMP Last administered on 09/25/18at 12:33; Admin Dose 650 MG; Start 09/23/18 at 13:00 Zolpidem Tartrate (Ambien) 5 mg QHS PRN PO .INSOMNIA; Start 09/23/18 at 13:00 Docusate Sodium (Colace) 100 mg Q12H PRN PO .CONSTIPATION; Start 09/23/18 at 13:00 Magnesium Hydroxide (Milk Of Mag) 30 ml DAILY PRN PO .CONSTIPATION; Start 09/23/18 at 13:00 Felodipine (Plendil) 5 mg BID PO Last administered on 09/25/18at 08:20; Admin Dose 5 MG; Start 09/23/18 at 21:00 Miscellaneous Information 1 ea NOTE XX ; Start 09/23/18 at 13:30 Glucose (Glutose) 15 gm Q15M PRN PO DECREASED GLUCOSE; Start 09/23/18 at 13:30 Glucose (Glutose) 22.5 gm Q15M PRN PO DECREASED GLUCOSE; Start 09/23/18 at 13:30 Dextrose (D50w Syringe) 25 ml Q15M PRN IV DECREASED GLUCOSE; Start 09/23/18 at 13:30 Dextrose (D50w Syringe) 50 ml Q15M PRN IV DECREASED GLUCOSE; Start 09/23/18 at 13:30 Glucagon (Glucagen) 1 mg Q15M PRN IM DECREASED GLUCOSE; Start 09/23/18 at 13:30 Glucose (Glutose) 15 gm Q15M PRN BUCCAL DECREASED GLUCOSE; Start 09/23/18 at 13:30 Insulin Aspart (Novolog Insulin Pen) NOVOLOG *MODERATE* ALGORI... Q4 SC Last administered on 09/25/18at 12:23; Admin Dose 2 UNIT; Start 09/23/18 at 17:00 Metoprolol Tartrate (Lopressor) 2.5 mg Q6 IV Last administered on 09/25/18 06:04; Admin Dose 2.5 MG; Start 09/24/18 at 12:00 Aztreonam 2 gm/ Sodium Chloride 100 ml @ 100 mls/hr Q12 IVPB Last administered on 09/25/18 08:49; Admin Dose 100 MLS/HR; Start 09/24/18 at 21:00 Levofloxacin/ Dextrose 100 ml @ 100 mls/hr Q48H IVPB Last administered on 09/24/18 09:44; Admin Dose 100 MLS/HR; Start 09/24/18 at 09:30 Famotidine (Pepcid Iv) 20 mg DAILY IV Last administered on 09/25/18 08:20; Admin Dose 20 MG; Start 09/25/18 at 09:00 Ferric Sodium Gluconate Complex 125 mg/Sodium Chloride 110 ml @ 110 mls/hr DAILY@1300 IVPB Last administered on 09/25/18 12:32; Admin Dose 110 MLS/HR; Start 09/25/18 at 13:00; Stop 09/29/18 at 13:59 NAINA MANN MD Sep 25, 2018 12:53
[2018-09-25] MEDS ORDERED: FUROSEMIDE 40 MG INJ IV ONE (13:00)
[2018-09-25] MEDS: METOPROLOL 25 MG TAB PO SCH ×2 (14:00→20:20)
[2018-09-25] MEDS: ATORVASTATIN 80 MG TAB PO SCH (20:21)
[2018-09-26] VITALS (31 sets, daily range): BP systolic 89–130; BP diastolic 46–87; PULSE 73–95; RESP 15–38
[2018-09-26] MEDS: INSULIN ASPART [NOVOLOG] 3 ML PEN SC SCH ×6 (00:40→20:15)
--- NOTE | 2018-09-26 07:35 | CONS ---
Assessment/Plan Assessment/Plan Hospital Course (Demo Recall) 1) CHF, r/o pneumonia on levo/aztreanom since 09/24 check procalcitonin and if <0.25 to d/c aztreanom pt did not have some coryza before her CP and SOB so a viral etiology is possible, will order viral pcr of nares no sputum production so no cx possible but nasal for MRSA was neg of noted WBC normalized prior to start of antibiotics pt is anxious to get off biPAP so that she can drink fluids 09/26 - procalcitonin was elevated, c/w with a bacterial lung process continue with levo/aztreanom at present pt starting to bring up phlegm will order resp culture to repeat procalcitonin 2) increase in LFT's this is much improved, likely it represented liver congestion due to heart failure 3) DM this rapidly improved since admission Consultation Date/Type/Reason Admit Date/Time Sep 23, 2018 at 07:08 Initial Consult Date 09/25/18 Type of Consult ID Date/Time of Note DATE: 09/26/18 TIME: 07:31 24 HR Interval Summary Free Text/Dictation pt tried C[employer] last night but did not tolerated so back on biPAP no V, D now starting to cough up some phlegm Exam/Review of Systems Exam Vitals Vital Signs Date Temp Pulse Resp B/P (MAP) Pulse Ox O2 O2 Flow FiO2 Time Delivery Rate 09/26/18 15.0 06:17 09/26/18 83 22 120/50 98 BIPAP 06:00 (73) 09/26/18 100 05:10 09/26/18 97.9 04:00 Intake and Output 09/25/18 09/25/18 09/26/18 1515:00 23:00 07:00 IntakeIntake Total 510 ml 400 ml 60 ml OutputOutput Total 320 ml 305 ml 300 ml BalanceBalance 190 ml 95 ml -240 ml Constitutional: alert, oriented Eyes: nl sclera Respiratory: other (bilateral rales) Cardiovascular: regular rate and rhythm Gastrointestinal: soft, non-tender Results Result Diagram: 09/26/18 0438 09/26/18 0438 Results 24hrs Laboratory Tests Test 09/25/18 08:47 09/25/18 12:22 09/25/18 17:23 09/25/18 20:17 Bedside Glucose 162 145 124 141 Test 09/26/18 00:34 09/26/18 04:30 09/26/18 04:38 Bedside Glucose 135 115 White Blood Count 7.0 Red Blood Count 3.23 L Hemoglobin 9.1 L Hematocrit 28.6 L Mean Corpuscular 88.5 Volume Mean Corpuscular 28.2 L Hemoglobin Mean Corpuscular 31.8 L Hemoglobin Concent Red Cell 13.3 Distribution Width Platelet Count 248 Mean Platelet Volume 11.4 H Immature 0.300 Granulocytes % Neutrophils % 74.2 Lymphocytes % 17.6 Monocytes % 6.9 Eosinophils % 0.4 Basophils % 0.6 Nucleated Red Blood 0.0 Cells % Immature 0.020 Granulocytes # Neutrophils # 5.2 Lymphocytes # 1.2 Monocytes # 0.5 Eosinophils # 0.0 Basophils # 0.0 Nucleated Red Blood 0.0 Cells # Sodium Level 142 Potassium Level 3.5 Chloride Level 104 Carbon Dioxide Level 27 Anion Gap 11 Blood Urea Nitrogen 62 H Creatinine 1.41 H Est Glomerular Filtrat Rate mL/min Glucose Level 128 Calcium Level 9.5 Phosphorus Level 4.7 Magnesium Level 2.5 Procalcitonin 0.54 H Medications Medication Current Medications Atorvastatin Calcium (Lipitor) 80 mg HS PO Last administered on 09/25/18at 20:21; Admin Dose 80 MG; Start 09/23/18 at 21:00 Aspirin (Halfprin) 81 mg DAILY PO Last administered on 09/25/18at 08:20; Admin Dose 81 MG; Start 09/24/18 at 09:00 IV Flush (NS 3 ml) 3 ml PER PROTOCOL IV ; Start 09/23/18 at 13:00 Lorazepam (Ativan) 0.5 mg Q8H PRN PO .ANXIETY; Start 09/23/18 at 13:00 Ondansetron HCl (Zofran Inj) 4 mg Q6H PRN IV NAUSEA/VOMITING; Start 09/23/18 at 13:00 Acetaminophen (Tylenol Tab) 650 mg Q6H PRN PO .PAIN 1-3 OR TEMP Last administered on 09/25/18at 20:20; Admin Dose 650 MG; Start 09/23/18 at 13:00 Zolpidem Tartrate (Ambien) 5 mg QHS PRN PO .INSOMNIA; Start 09/23/18 at 13:00 Docusate Sodium (Colace) 100 mg Q12H PRN PO .CONSTIPATION; Start 09/23/18 at 13:00 Magnesium Hydroxide (Milk Of Mag) 30 ml DAILY PRN PO .CONSTIPATION; Start 09/23/18 at 13:00 Felodipine (Plendil) 5 mg BID PO Last administered on 09/25/18at 20:20; Admin Dose 5 MG; Start 09/23/18 at 21:00 Miscellaneous Information 1 ea NOTE XX ; Start 09/23/18 at 13:30 Glucose (Glutose) 15 gm Q15M PRN PO DECREASED GLUCOSE; Start 09/23/18 at 13:30 Glucose (Glutose) 22.5 gm Q15M PRN PO DECREASED GLUCOSE; Start 09/23/18 at 13:30 Dextrose (D50w Syringe) 25 ml Q15M PRN IV DECREASED GLUCOSE; Start 09/23/18 at 13:30 Dextrose (D50w Syringe) 50 ml Q15M PRN IV DECREASED GLUCOSE; Start 09/23/18 at 13:30 Glucagon (Glucagen) 1 mg Q15M PRN IM DECREASED GLUCOSE; Start 09/23/18 at 13:30 Glucose (Glutose) 15 gm Q15M PRN BUCCAL DECREASED GLUCOSE; Start 09/23/18 at 13:30 Insulin Aspart (Novolog Insulin Pen) NOVOLOG *MODERATE* ALGORI... Q4 SC Last administered on 09/25/18at 20:22; Admin Dose 2 UNIT; Start 09/23/18 at 17:00 Aztreonam 2 gm/ Sodium Chloride 100 ml @ 100 mls/hr Q12 IVPB Last administered on 09/25/18at 20:19; Admin Dose 100 MLS/HR; Start 09/24/18 at 21:00 Levofloxacin/ Dextrose 100 ml @ 100 mls/hr Q48H IVPB Last administered on 09/24/18at 09:44; Admin Dose 100 MLS/HR; Start 09/24/18 at 09:30 Famotidine (Pepcid Iv) 20 mg DAILY IV Last administered on 09/25/18at 08:20; Admin Dose 20 MG; Start 09/25/18 at 09:00 Ferric Sodium Gluconate Complex 125 mg/Sodium Chloride 110 ml @ 110 mls/hr DAILY@1300 IVPB Last administered on 09/25/18at 12:32; Admin Dose 110 MLS/HR; Start 09/25/18 at 13:00; Stop 09/29/18 at 13:59 Metoprolol Tartrate (Lopressor) 25 mg BID PO Last administered on 09/25/18at 20:20; Admin Dose 25 MG; Start 09/25/18 at 13:00 Enoxaparin Sodium (Lovenox) 75 mg Q24H SC ; Start 09/26/18 at 13:00 HARPREET HALE MD Sep 26, 2018 07:35
[2018-09-26] MEDS ORDERED: FUROSEMIDE 40 MG INJ IV ONE (08:30)
[2018-09-26] MEDS ORDERED: POTASSIUM CHLORIDE (SR) 10 MEQ TAB PO ONE (08:30)
--- NOTE | 2018-09-26 08:37 | PN ---
Date/Time of Note Date/Time of Note DATE: 09/26/18 TIME: 08:29 SUBJECTIVE: Patient feeling better wants BiPAP off denies any chest pain severe dyspnea or palpitations. Is bringing up productive sputum. Chart, medications and laboratory studies reviewed. Review of systems Not obtainable reliably with patient on BiPAP. OBJECTIVE: Vital signs please see chart. HEENT; no JVD, no HJR, carotids 2 over 4+ without bruits. Patient with BiPAP on. Chest: Difficult exam no wheezes or rhonchi. Cardiac: S4, S1, S2 with normal physiologic splitting, 2/6 early to mid peaking systolic ejection murmur, no rub click or diastolic murmur noted. Abdominal: Bowel sounds positive, soft nontender, no abdominal bruit noted, no hepatosplenomegaly. Extremities: No cyanosis, clubbing, or edema. Negative Homans sign or palpable cords. Pulses: 2/4 pulses diffusely no bruits noted. LABORATORY STUDIES; Anemia hemoglobin 9.1 hematocrit 28.6 normal white count and platelets, procalcitonin elevated at 0.54, phosphate 4.7, magnesium 2.5. Electrolytes normal potassium 3.5 bun 62 creatinine 1.4. Telemetry sinus rhythm with occasional PVCs. Chest x-ray revealed worsening infiltrates in the right lung and now worsening interstitial edema in the left. ASSESSMENT: 1. Multi lobar probable right lung pneumonia. 2. Non-ST elevation myocardial infarction. 3. Hypertension. 4. Type 2 diabetes. 5. Mild to moderate aortic stenosis. 6. Acute diastolic heart failure. 7. Gout. 8. Normocytic anemia. 9. Hyperlipidemia. 10. Acute respiratory failure probably multifactorial secondary to pneumonia and concomitant heart failure. 11. History of breast cancer. 12. Renal insufficiency. At this time patient with probable multi lobar pneumonia as well as heart failure. Will diurese carefully continue aspirin, Lovenox, metoprolol, statin, felodipine. Would like to proceed with angiography but patient not stable at this time with concomitant renal insufficiency and respiratory failure. PLAN: 1. Proceed with careful diuresis give Lasix 40 IV once with potassium supplementation. 2. Continue statin, aspirin, felodipine, metoprolol, and renal dose Lovenox. 3. Continue pulmonary toilet and antibiotics hopeful weaning off of BiPAP. Discussed case with pulmonary. ANTONIETA KEE MD Sep 26, 2018 08:37
[2018-09-26] MEDS: AZTREONAM 2 GM in SOD CHLORIDE 0.9% 100 ML IVPB SCH ×2 (08:39→20:11)
[2018-09-26] MEDS: LEVOFLOXACIN 500MG/D5W (PMX) 100 ML IVPB SCH (08:40)
[2018-09-26] MEDS: ASPIRIN (EC) 81 MG TAB PO SCH (08:40)
[2018-09-26] MEDS: FAMOTIDINE 20 MG INJ IV SCH (08:40)
[2018-09-26] MEDS: METOPROLOL 25 MG TAB PO SCH ×2 (08:40→19:53)
[2018-09-26] MEDS: FELODIPINE (ER) 5 MG TAB PO SCH ×2 (08:40→19:53)
--- NOTE | 2018-09-26 09:13 | CONS ---
Assessment/Plan Assessment/Plan Hospital Course (Demo Recall) 1. Congestive heart failure /pneumonia. She seems improved; however, her chest x-ray is worse with dense right lung infiltrate. She is receiving broad- spectrum antibiotics for pneumonia as she has an elevated pro calcitonin level and cautious diuretics as I think she is also in congestive heart failure. 2. Renal failure. Her renal function is about the same today. She was in negative fluid balance yesterday after receiving a dose of Lasix IV. She is going to receive another dose of Lasix IV today. 3. Respiratory failure requiring BiPAP. Although she is now off BiPAP, on a no nrebreather mask. 4. Elevated troponin levels being seen by cardiology 5. Hypertension 6. Type 2 diabetes mellitus being controlled. 7. Iron deficiency anemia. Patient to start a course of Ferrlicit, IV iron replacement. Consultation Date/Type/Reason Admit Date/Time Sep 23, 2018 at 07:08 Initial Consult Date 09/23/18 Date/Time of Note DATE: 09/26/18 TIME: 08:57 24 HR Interval Summary Free Text/Dictation Patient is being seen in the intensive care unit. She is awake and alert. She is now off BiPAP. She is on a trial of nonrebreather mask. Constitutional: improved Exam/Review of Systems Exam Vitals Vital Signs Date Temp Pulse Resp B/P (MAP) Pulse Ox O2 O2 Flow FiO2 Time Delivery Rate 09/26/18 90 08:00 09/26/18 15.0 06:17 09/26/18 22 120/50 98 BIPAP 06:00 (73) 09/26/18 100 05:10 09/26/18 97.9 04:00 Intake and Output 09/25/18 09/25/18 09/26/18 1515:00 23:00 07:00 IntakeIntake Total 510 ml 400 ml 60 ml OutputOutput Total 320 ml 305 ml 300 ml BalanceBalance 190 ml 95 ml -240 ml Constitutional: alert, oriented, frail Respiratory: wheezing Cardiovascular: regular rate and rhythm Gastrointestinal: soft, non-tender Musculoskeletal: nl extremities to inspection Results Result Diagram: 09/26/18 0438 09/26/18 0438 Results 24hrs Laboratory Tests Test 09/25/18 12:22 09/25/18 17:23 09/25/18 20:17 09/26/18 00:34 Bedside Glucose 145 124 141 135 Test 09/26/18 04:30 09/26/18 04:38 09/26/18 07:00 09/26/18 08:55 Bedside Glucose 115 132 White Blood Count 7.0 Red Blood Count 3.23 L Hemoglobin 9.1 L Hematocrit 28.6 L Mean Corpuscular 88.5 Volume Mean Corpuscular 28.2 L Hemoglobin Mean Corpuscular 31.8 L Hemoglobin Concen t Red Cell 13.3 Distribution Width Platelet Count 248 Mean Platelet 11.4 H Volume Immature 0.300 Granulocytes % Neutrophils % 74.2 Lymphocytes % 17.6 Monocytes % 6.9 Eosinophils % 0.4 Basophils % 0.6 Nucleated Red 0.0 Blood Cells % Immature 0.020 Granulocytes # Neutrophils # 5.2 Lymphocytes # 1.2 Monocytes # 0.5 Eosinophils # 0.0 Basophils # 0.0 Nucleated Red 0.0 Blood Cells # Sodium Level 142 Potassium Level 3.5 Chloride Level 104 Carbon Dioxide 27 Level Anion Gap 11 Blood Urea 62 H Nitrogen Creatinine 1.41 H Est Glomerular Filtrat Rate mL/min Glucose Level 128 Calcium Level 9.5 Phosphorus Level 4.7 Magnesium Level 2.5 Procalcitonin 0.54 H Blood Gas Blood arterial Specimen Source Arterial Blood 09/26/2018 8:00:3 Date Drawn 9 AM Arterial Blood pH 7.464 H (Temp corrected) Arterial Blood 36.7 pCO2 (Temp correct) Arterial Blood 79.7 L pO2 (Temp corrected) Arterial Blood 25.8 HCO3 Arterial Blood 2.1 Base Excess Arterial Blood 95.4 Oxygen Saturation Nash Test N/A Arterial Blood Right Brachial Gas Puncture Site Arterial 0.1 Blood Carboxyhemo globin Arterial Blood 0 Methemoglobin Blood Gas A-a O2 596.6 H Differential Oxyhemoglobin 95.3 Percent Blood Gas 37.0 Temperature Blood Gas 20.0 Respiration Rate Blood Gas Actual 26 Respiration Rate Blood Gas MASK - BIPAP Modality FiO2 100.0 Blood Gas 15/5 IPAP/EPAP Ratio Blood Gas CW Notified Whom Blood Gas 09/26/2018 8:14:5 Notified Time 1 AM Medications Medication Current Medications Atorvastatin Calcium (Lipitor) 80 mg HS PO Last administered on 09/25/18at 20:21; Admin Dose 80 MG; Start 09/23/18 at 21:00 Aspirin (Halfprin) 81 mg DAILY PO Last administered on 09/25/18at 08:20; Admin Dose 81 MG; Start 09/24/18 at 09:00 IV Flush (NS 3 ml) 3 ml PER PROTOCOL IV ; Start 09/23/18 at 13:00 Lorazepam (Ativan) 0.5 mg Q8H PRN PO .ANXIETY; Start 09/23/18 at 13:00 Ondansetron HCl (Zofran Inj) 4 mg Q6H PRN IV NAUSEA/VOMITING; Start 09/23/18 at 13:00 Acetaminophen (Tylenol Tab) 650 mg Q6H PRN PO .PAIN 1-3 OR TEMP Last administered on 09/25/18at 20:20; Admin Dose 650 MG; Start 09/23/18 at 13:00 Zolpidem Tartrate (Ambien) 5 mg QHS PRN PO .INSOMNIA; Start 09/23/18 at 13:00 Docusate Sodium (Colace) 100 mg Q12H PRN PO .CONSTIPATION; Start 09/23/18 at 13:00 Magnesium Hydroxide (Milk Of Mag) 30 ml DAILY PRN PO .CONSTIPATION; Start 09/23/18 at 13:00 Felodipine (Plendil) 5 mg BID PO Last administered on 09/25/18at 20:20; Admin Dose 5 MG; Start 09/23/18 at 21:00 Miscellaneous Information 1 ea NOTE XX ; Start 09/23/18 at 13:30 Glucose (Glutose) 15 gm Q15M PRN PO DECREASED GLUCOSE; Start 09/23/18 at 13:30 Glucose (Glutose) 22.5 gm Q15M PRN PO DECREASED GLUCOSE; Start 09/23/18 at 13:30 Dextrose (D50w Syringe) 25 ml Q15M PRN IV DECREASED GLUCOSE; Start 09/23/18 at 13:30 Dextrose (D50w Syringe) 50 ml Q15M PRN IV DECREASED GLUCOSE; Start 09/23/18 at 13:30 Glucagon (Glucagen) 1 mg Q15M PRN IM DECREASED GLUCOSE; Start 09/23/18 at 13:30 Glucose (Glutose) 15 gm Q15M PRN BUCCAL DECREASED GLUCOSE; Start 09/23/18 at 13:30 Insulin Aspart (Novolog Insulin Pen) NOVOLOG *MODERATE* ALGORI... Q4 SC Last administered on 09/25/18at 20:22; Admin Dose 2 UNIT; Start 09/23/18 at 17:00 Aztreonam 2 gm/ Sodium Chloride 100 ml @ 100 mls/hr Q12 IVPB Last administered on 09/25/18at 20:19; Admin Dose 100 MLS/HR; Start 09/24/18 at 21:00 Levofloxacin/ Dextrose 100 ml @ 100 mls/hr Q48H IVPB Last administered on 09/24/18at 09:44; Admin Dose 100 MLS/HR; Start 09/24/18 at 09:30 Famotidine (Pepcid Iv) 20 mg DAILY IV Last administered on 09/25/18at 08:20; Admin Dose 20 MG; Start 09/25/18 at 09:00 Ferric Sodium Gluconate Complex 125 mg/Sodium Chloride 110 ml @ 110 mls/hr FLOWER Y@1300 IVPB Last administered on 09/25/18at 12:32; Admin Dose 110 MLS/HR; Start 09/25/18 at 13:00; Stop 09/29/18 at 13:59 Metoprolol Tartrate (Lopressor) 25 mg BID PO Last administered on 09/25/18at 2 0:20; Admin Dose 25 MG; Start 09/25/18 at 13:00 Enoxaparin Sodium (Lovenox) 75 mg Q24H SC ; Start 09/26/18 at 13:00 GENARO SEPULVEDA MD Sep 26, 2018 09:07
--- NOTE | 2018-09-26 09:17 | CONS ---
Assessment/Plan Assessment/Plan Assessment/Plan (Daily) Chest x-ray is again showing bilateral pneumonia with right upper lobe predominance with a background of interstitial changes likely from some element of pulmonary edema. ABG was reviewed. Assessment and recommendations; 1. Patient admitted with shortness of breath which is combination of severe bilateral pneumonia with CHF due to an STEMI. 2. History of chronic renal insufficiency. 3. Anemia. 4. History of diabetes and hypertension. Continue current supportive care. Patient currently is too unstable to undergo coronary angiography. Add vancomycin per pharmacy. Obtain follow-up chest x- ray 24 hours. Monitor renal function. Replace potassium. Patient given 1 dose of Lasix this morning by manager core. Prognosis is guarded. Consultation Date/Type/Reason Admit Date/Time Sep 23, 2018 at 07:08 Initial Consult Date 09/25/18 Type of Consult Pulmonary/critical care Patient is an 88-year-old lady who was brought into the emergency room yesterday with a 2-day history of increasing shortness of breath and chest pressure. Upon evaluation patient had mild elevation of troponins as well as elevation in BNP level. Chest x-ray showed pulmonary edema, patient has been transferred to ICU and started on BiPAP. Patient also has been on Bumex drip with adequate urine output. Patient reports very little improvement in symptoms of shortness of breath since yesterday. Denies any further chest pain, complains of scant cough with production of clear sputum. Denies any fever chills any body aches or myalgias. According to her she was fine until 2 days ago when the symptoms started. Past medical history; 1. History of hypertension and diabetes. Medications; reviewed. Allergies; penicillin. Social history; patient never smoked. Family history; she is a . Occupational history; noncontributory. Review of systems; complains of cough with mild shortness of breath. Denies any abdominal pain, nausea vomiting. Any fever chills. Patient is on BiPAP therefore a limited review of systems could be obtained. General exam; elderly lady, on BiPAP. Awake and alert. Currently no distress. Date/Time of Note DATE: 09/26/18 TIME: 09:15 24 HR Interval Summary Free Text/Dictation Patient's condition is tenuous at best. Still on 100% FiO2 via nonrebreather mask. Patient however remains completely awake alert. And denies any worsening in breathing since yesterday. Denies any chest pain, wheezing, sputum production. General exam; elderly woman, on 100% FiO2 via nonrebreather mask. Awake and alert. Currently in no distress. Able to talk. Exam/Review of Systems Exam Vitals Vital Signs Date Temp Pulse Resp B/P (MAP) Pulse Ox O2 O2 Flow FiO2 Time Delivery Rate 09/26/18 90 08:00 09/26/18 15.0 06:17 09/26/18 22 120/50 98 BIPAP 06:00 (73) 09/26/18 100 05:10 09/26/18 97.9 04:00 Intake and Output 09/25/18 09/25/18 09/26/18 1515:00 23:00 07:00 IntakeIntake Total 510 ml 400 ml 60 ml OutputOutput Total 320 ml 305 ml 300 ml BalanceBalance 190 ml 95 ml -240 ml Exam H EENT exam; supple neck, positive JVD. No lymphadenopathy. Midline trachea. No thyromegaly. Patient has fair dentition. No neck masses. Pupils are small bilaterally. Chest exam; diminished breath sounds bilaterally. S1-S2 audible, no murmurs. Regular rhythm. Abdomen exam; soft, nondistended. No organomegaly. Bowel sounds audible. Extremity exam; no peripheral edema clubbing. 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 Results Result Diagram: 09/26/188 09/26/18 0438 Results 24hrs Laboratory Tests Test 09/25/18 12:22 09/25/18 17:23 09/25/18 20:17 09/26/18 00:34 Bedside Glucose 145 124 141 135 Test 09/26/18 04:30 09/26/18 04:38 09/26/18 07:00 09/26/18 08:55 Bedside Glucose 115 132 White Blood Count 7.0 Red Blood Count 3.23 L Hemoglobin 9.1 L Hematocrit 28.6 L Mean Corpuscular 88.5 Volume Mean Corpuscular 28.2 L Hemoglobin Mean Corpuscular 31.8 L Hemoglobin Concen t Red Cell 13.3 Distribution Width Platelet Count 248 Mean Platelet 11.4 H Volume Immature 0.300 Granulocytes % Neutrophils % 74.2 Lymphocytes % 17.6 Monocytes % 6.9 Eosinophils % 0.4 Basophils % 0.6 Nucleated Red 0.0 Blood Cells % Immature 0.020 Granulocytes # Neutrophils # 5.2 Lymphocytes # 1.2 Monocytes # 0.5 Eosinophils # 0.0 Basophils # 0.0 Nucleated Red 0.0 Blood Cells # Sodium Level 142 Potassium Level 3.5 Chloride Level 104 Carbon Dioxide 27 Level Anion Gap 11 Blood Urea 62 H Nitrogen Creatinine 1.41 H Est Glomerular Filtrat Rate mL/min Glucose Level 128 Calcium Level 9.5 Phosphorus Level 4.7 Magnesium Level 2.5 Procalcitonin 0.54 H Blood Gas Blood arterial Specimen Source Arterial Blood 09/26/2018 8:00:3 Date Drawn 9 AM Arterial Blood pH 7.464 H (Temp corrected) Arterial Blood 36.7 pCO2 (Temp correct) Arterial Blood 79.7 L pO2 (Temp corrected) Arterial Blood 25.8 HCO3 Arterial Blood 2.1 Base Excess Arterial Blood 95.4 Oxygen Saturation Nash Test N/A Arterial Blood Right Brachial Gas Puncture Site Arterial 0.1 Blood Carboxyhemo globin Arterial Blood 0 Methemoglobin Blood Gas A-a O2 596.6 H Differential Oxyhemoglobin 95.3 Percent Blood Gas 37.0 Temperature Blood Gas 20.0 Respiration Rate Blood Gas Actual 26 Respiration Rate Blood Gas MASK - BIPAP Modality FiO2 100.0 Blood Gas 15/5 IPAP/EPAP Ratio Blood Gas CW Notified Whom Blood Gas 09/26/2018 8:14:5 Notified Time 1 AM Medications Medication Current Medications Atorvastatin Calcium (Lipitor) 80 mg HS PO Last administered on 09/25/18at 20:21; Admin Dose 80 MG; Start 09/23/18 at 21:00 Aspirin (Halfprin) 81 mg DAILY PO Last administered on 09/26/18at 08:40; Admin Dose 81 MG; Start 09/24/18 at 09:00 IV Flush (NS 3 ml) 3 ml PER PROTOCOL IV ; Start 09/23/18 at 13:00 Lorazepam (Ativan) 0.5 mg Q8H PRN PO .ANXIETY; Start 09/23/18 at 13:00 Ondansetron HCl (Zofran Inj) 4 mg Q6H PRN IV NAUSEA/VOMITING; Start 09/23/18 at 13:00 Acetaminophen (Tylenol Tab) 650 mg Q6H PRN PO .PAIN 1-3 OR TEMP Last a dministered on 09/25/18at 20:20; Admin Dose 650 MG; Start 09/23/18 at 13:00 Zolpidem Tartrate (Ambien) 5 mg QHS PRN PO .INSOMNIA; Start 09/23/18 at 13:00 Docusate Sodium (Colace) 100 mg Q12H PRN PO .CONSTIPATION; Start 09/23/18 at 13:00 Magnesium Hydroxide (Milk Of Mag) 30 ml DAILY PRN PO .CONSTIPATION; Start 09/23/18 at 13:00 Felodipine (Plendil) 5 mg BID PO Last administered on 09/26/18at 08:40; Admin Dose 5 MG; Start 09/23/18 at 21:00 Miscellaneous Information 1 ea NOTE XX ; Start 09/23/18 at 13:30 Glucose (Glutose) 15 gm Q15M PRN PO DECREASED GLUCOSE; Start 09/23/18 at 13:30 Glucose (Glutose) 22.5 gm Q15M PRN PO DECREASED GLUCOSE; Start 09/23/18 at 13:30 Dextrose (D50w Syringe) 25 ml Q15M PRN IV DECREASED GLUCOSE; Start 09/23/18 at 13:30 Dextrose (D50w Syringe) 50 ml Q15M PRN IV DECREASED GLUCOSE; Start 09/23/18 at 13:30 Glucagon (Glucagen) 1 mg Q15M PRN IM DECREASED GLUCOSE; Start 09/23/18 at 13:30 Glucose (Glutose) 15 gm Q15M PRN BUCCAL DECREASED GLUCOSE; Start 09/23/18 at 13:30 Insulin Aspart (Novolog Insulin Pen) NOVOLOG *MODERATE* ALGORI... Q4 SC Last administered on 09/25/18at 20:22; Admin Dose 2 UNIT; Start 09/23/18 at 17:00 Aztreonam 2 gm/ Sodium Chloride 100 ml @ 100 mls/hr Q12 IVPB Last administered on 09/26/18at 08:39; Admin Dose 100 MLS/HR; Start 09/24/18 at 21:00 Levofloxacin/ Dextrose 100 ml @ 100 mls/hr Q48H IVPB Last administered on 09/26/18at 08:40; Admin Dose 100 MLS/HR; Start 09/24/18 at 09:30 Famotidine (Pepcid Iv) 20 mg DAILY IV Last administered on 09/26/18at 08:40; Admin Dose 20 MG; Start 09/25/18 at 09:00 Ferric Sodium Gluconate Complex 125 mg/Sodium Chloride 110 ml @ 110 mls/hr DAILY@1300 IVPB Last administered on 09/25/18at 12:32; Admin Dose 110 MLS/HR; Start 09/25/18 at 13:00; Stop 09/29/18 at 13:59 Metoprolol Tartrate (Lopressor) 25 mg BID PO Last administered on 09/26/18at 08:40; Admin Dose 25 MG; Start 09/25/18 at 13:00 Enoxaparin Sodium (Lovenox) 75 mg Q24H SC ; Start 09/26/18 at 13:00 Lidocaine (Lidoderm) 1 patch DAILY TD ; Start 09/26/18 at 12:00; Status UNV Vancomycin HCl (Vanco Iv Per Pharmacy) VANCOMYCIN PER PHARMACY PER PROTOCOL XX ; Start 09/26/18 at 09:30; Status UNV DONNA GENTILE Sep 26, 2018 09:17
[2018-09-26] MEDS ORDERED: VANCOMYCIN IV PER PHARMACY XX SCH (09:30)
[2018-09-26] MEDS ORDERED: VANCOMYCIN HCL 1.5 GM in SOD CHLORIDE 0.9% 250 ML IVPB SCH (11:00)
[2018-09-26] MEDS: ENOXAPARIN 80 MG/0.8 ML SYG SC SCH (13:14)
[2018-09-26] MEDS: SOD FERRIC GLUC COMPLX 125 MG in SOD CHLORIDE 0.9% 100 ML IVPB SCH (13:16)
[2018-09-26] MEDS: LIDOCAINE 5% PATCH TD SCH (13:16)
[2018-09-26] MEDS: LORAZEPAM 0.5 MG TAB PO PRN (13:26)
[2018-09-26] MEDS: ATORVASTATIN 80 MG TAB PO SCH (19:53)
[2018-09-26] MEDS: LORAZEPAM 2 MG INJ IV PRN (19:54)
[2018-09-27] VITALS (39 sets, daily range): BP systolic 95–131; BP diastolic 47–85; PULSE 8–118; RESP 16–34
[2018-09-27] MEDS: INSULIN ASPART [NOVOLOG] 3 ML PEN SC SCH ×6 (00:05→20:36)
--- NOTE | 2018-09-27 06:41 | CONS ---
Assessment/Plan Assessment/Plan Hospital Course (Demo Recall) 1) CHF, r/o pneumonia on levo/aztreanom since 09/24 check procalcitonin and if <0.25 to d/c aztreanom pt did not have some coryza before her CP and SOB so a viral etiology is possible, will order viral pcr of nares no sputum production so no cx possible but nasal for MRSA was neg of noted WBC normalized prior to start of antibiotics pt is anxious to get off biPAP so that she can drink fluids 09/26 - procalcitonin was elevated, c/w with a bacterial lung process continue with levo/aztreanom at present pt starting to bring up phlegm will order resp culture to repeat procalcitonin 09/27 - vanco was added by pulmonary yesterday, not clear for the reason (decre asing procalcitonin and normal WBC, no fever and neg MRSA screen) currently on levo/aztreanom/vanco CXR this a.m. 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 has cough with sips of fluid no V, D pt anxious to drink some water Exam/Review of Systems Exam Vitals Vital Signs Date Temp Pulse Resp B/P (MAP) Pulse Ox O2 O2 Flow FiO2 Time Delivery Rate 09/27/18 101 34 97/75 (82) 90 High Flow 06:00 09/27/18 100 04:45 09/27/18 98.8 00:00 09/26/18 15.0 06:17 Intake and Output 09/26/18 09/26/18 09/27/18 1515:00 23:00 07:00 IntakeIntake Total 476.666 ml 243.334 ml 0 ml OutputOutput Total 975 ml 645 ml 430 ml BalanceBalance -498.334 ml -401.666 ml -430 ml Constitutional: alert, oriented Eyes: nl sclera ENMT: other (white coating to tongue) Respiratory: other (bibasilar rales) Cardiovascular: regular rate and rhythm Gastrointestinal: soft, non-tender Extremities: other (no edema) Results Result Diagram: 09/27/18 0433 09/27/18 0433 Results 24hrs Laboratory Tests Test 09/26/18 07:00 09/26/18 08:55 09/26/18 13:25 09/26/18 18:23 Blood Gas Blood arterial Specimen Source Arterial Blood 09/26/2018 8:00:3 Date Drawn 9 AM Arterial Blood pH 7.464 H (Temp corrected) Arterial Blood 36.7 pCO2 (Temp correct) Arterial Blood 79.7 L pO2 (Temp corrected) Arterial Blood 25.8 HCO3 Arterial Blood 2.1 Base Excess Arterial Blood 95.4 Oxygen Saturation Nash Test N/A Arterial Blood Right Brachial Gas Puncture Site Arterial 0.1 Blood Carboxyhemo globin Arterial Blood 0 Methemoglobin Blood Gas A-a O2 596.6 H Differential Oxyhemoglobin 95.3 Percent Blood Gas 37.0 Temperature Blood Gas 20.0 Respiration Rate Blood Gas Actual 26 Respiration Rate Blood Gas MASK - BIPAP Modality FiO2 100.0 Blood Gas 15/5 IPAP/EPAP Ratio Blood Gas CW Notified Whom Blood Gas 09/26/2018 8:14:5 Notified Time 1 AM Bedside Glucose 132 163 178 Test 09/26/18 19:31 09/26/18 20:10 09/27/18 00:01 09/27/18 04:33 Sodium Level 142 143 Potassium Level 3.8 3.8 Chloride Level 105 107 Carbon Dioxide 24 27 Level Anion Gap 13 9 Blood Urea 65 H 67 H Nitrogen Creatinine 1.27 H 1.30 H Est Glomerular Filtrat Rate mL/min Glucose Level 180 181 Calcium Level 8.9 9.3 Bedside Glucose 183 170 White Blood Count 6.8 Red Blood Count 3.26 L Hemoglobin 9.0 L Hematocrit 28.4 L Mean Corpuscular 87.1 Volume Mean Corpuscular 27.6 L Hemoglobin Mean Corpuscular 31.7 L Hemoglobin Concen t Red Cell 13.2 Distribution Width Platelet Count 267 Mean Platelet 11.5 H Volume Immature 0.300 Granulocytes % Neutrophils % 81.2 H Lymphocytes % 10.6 L Monocytes % 7.6 Eosinophils % 0.0 Basophils % 0.3 Nucleated Red 0.0 Blood Cells % Immature 0.020 Granulocytes # Neutrophils # 5.5 Lymphocytes # 0.7 L Monocytes # 0.5 Eosinophils # 0.0 Basophils # 0.0 Nucleated Red 0.0 Blood Cells # Phosphorus Level 3.7 Magnesium Level 2.5 B-Type 3820 H Natriuretic Peptide Test 09/27/18 05:14 Bedside Glucose 178 Medications Medication Current Medications Atorvastatin Calcium (Lipitor) 80 mg HS PO Last administered on 09/26/18 19:53; Admin Dose 80 MG; Start 09/23/18 at 21:00 Aspirin (Halfprin) 81 mg DAILY PO Last administered on 09/26/18 08:40; Admin Dose 81 MG; Start 09/24/18 at 09:00 IV Flush (NS 3 ml) 3 ml PER PROTOCOL IV ; Start 09/23/18 at 13:00 Lorazepam (Ativan) 0.5 mg Q8H PRN PO .ANXIETY Last administered on 09/26/18 13:26; Admin Dose 0.5 MG; Start 09/23/18 at 13:00 Ondansetron HCl (Zofran Inj) 4 mg Q6H PRN IV NAUSEA/VOMITING; Start 09/23/18 at 13:00 Acetaminophen (Tylenol Tab) 650 mg Q6H PRN PO .PAIN 1-3 OR TEMP Last administered on 09/25/18at 20:20; Admin Dose 650 MG; Start 09/23/18 at 13:00 Zolpidem Tartrate (Ambien) 5 mg QHS PRN PO .INSOMNIA; Start 09/23/18 at 13:00 Docusate Sodium (Colace) 100 mg Q12H PRN PO .CONSTIPATION; Start 09/23/18 at 13:00 Magnesium Hydroxide (Milk Of Mag) 30 ml DAILY PRN PO .CONSTIPATION; Start 09/23/18 at 13:00 Felodipine (Plendil) 5 mg BID PO Last administered on 09/26/18 19:53; Admin Dose 5 MG; Start 09/23/18 at 21:00 Miscellaneous Information 1 ea NOTE XX ; Start 09/23/18 at 13:30 Glucose (Glutose) 15 gm Q15M PRN PO DECREASED GLUCOSE; Start 09/23/18 at 13:30 Glucose (Glutose) 22.5 gm Q15M PRN PO DECREASED GLUCOSE; Start 09/23/18 at 13:30 Dextrose (D50w Syringe) 25 ml Q15M PRN IV DECREASED GLUCOSE; Start 09/23/18 at 13:30 Dextrose (D50w Syringe) 50 ml Q15M PRN IV DECREASED GLUCOSE; Start 09/23/18 at 13:30 Glucagon (Glucagen) 1 mg Q15M PRN IM DECREASED GLUCOSE; Start 09/23/18 at 13:30 Glucose (Glutose) 15 gm Q15M PRN BUCCAL DECREASED GLUCOSE; Start 09/23/18 at 13:30 Insulin Aspart (Novolog Insulin Pen) NOVOLOG *MODERATE* ALGORI... Q4 SC Last administered on 09/27/18 05:19; Admin Dose 2 UNIT; Start 09/23/18 at 17:00 Aztreonam 2 gm/ Sodium Chloride 100 ml @ 100 mls/hr Q12 IVPB Last administered on 09/26/18at 20:11; Admin Dose 100 MLS/HR; Start 09/24/18 at 21:00 Levofloxacin/ Dextrose 100 ml @ 100 mls/hr Q48H IVPB Last administered on 09/26/18 08:40; Admin Dose 100 MLS/HR; Start 09/24/18 at 09:30 Famotidine (Pepcid Iv) 20 mg DAILY IV Last administered on 09/26/18 08:40; Admin Dose 20 MG; Start 09/25/18 at 09:00 Ferric Sodium Gluconate Complex 125 mg/Sodium Chloride 110 ml @ 110 mls/hr DAILY@1300 IVPB Last administered on 09/26/18at 13:16; Admin Dose 110 MLS/HR; Start 09/25/18 at 13:00; Stop 09/29/18 at 13:59 Metoprolol Tartrate (Lopressor) 25 mg BID PO Last administered on 09/26/18 19:53; Admin Dose 25 MG; Start 09/25/18 at 13:00 Enoxaparin Sodium (Lovenox) 75 mg Q24H SC Last administered on 09/26/18 13:14; Admin Dose 75 MG; Start 09/26/18 at 13:00 Lidocaine (Lidoderm) 1 patch DAILY TD Last administered on 09/26/18 13:16; Admin Dose 1 PATCH; Start 09/26/18 at 12:00 Vancomycin HCl (Vanco Iv Per Pharmacy) VANCOMYCIN PER PHARMACY PER PROTOCOL XX ; Start 09/26/18 at 09:30 Vancomycin/Sodium Chloride 250 ml @ 125 mls/hr Q24H IVPB ; Start 09/27/18 at 11:00 Lorazepam (Ativan) 0.5 mg Q4H PRN IV ANXIETY Last administered on 09/26/18at 19:54; Admin Dose 0.5 MG; Start 09/26/18 at 19:30 HARPREET HALE MD Sep 27, 2018 06:41
[2018-09-27] MEDS: ACETAMINOPHEN 325 MG TAB PO PRN (06:44)
--- NOTE | 2018-09-27 07:53 | PN ---
Date/Time of Note Date/Time of Note DATE: 09/27/18 TIME: 07:44 Assessment/Plan VTE Prophylaxis Risk score (from Ns)>0 risk: 8 SCD applied (from Ns): Yes Pharmacological prophylaxis: LMWH Lines/Catheters IV Catheter Type (from [facility] Peripheral IV Urinary Cath still in place: Yes Reason Cath still needed: other (indicate) Assessment/Plan Hospital Course 1.) Continue broad spectrum anti-biotics. Pulmonary managing. ID signed off case. On Vanco/Levaquin/Aztreonam. 2.) Fluid status seems overall improved. XRAY from yesterday still with congestion. Consider additional lasix today. 3.) Continue current cardiac Rx, defer cardiac cath to cardiology. Renal function slowly improving. 4.) Continue hi-flow NC with vapotherm, Bipap prn. Continue ICU care for today. 5.) Diabetes overall stable. 6.) BP controlled. 7.) DVT Prophylaxis - SQ Lovenox. Problems: (1) Pulmonary edema Status: Acute Qualifiers: Chronicity: acute Qualified Codes: J81.0 - Acute pulmonary edema (2) NSTEMI (non-ST elevated myocardial infarction) (3) Bilateral pneumonia Qualifiers: Pneumonia type: due to unspecified organism Lung location: unspecified part of lung Qualified Codes: J18.9 - Pneumonia, unspecified organism (4) Shortness of breath Status: Acute Result Diagram: 09/27/18 0433 09/27/18 0433 Results 24hrs Laboratory Tests Test 09/26/18 08:55 09/26/18 13:25 09/26/18 18:23 09/26/18 19:31 Bedside Glucose 132 163 178 Sodium Level 142 Potassium Level 3.8 Chloride Level 105 Carbon Dioxide Level 24 Anion Gap 13 Blood Urea Nitrogen 65 H Creatinine 1.27 H Est Glomerular Filtrat Rate mL/min Glucose Level 180 Calcium Level 8.9 Test 09/26/18 20:10 09/27/18 00:01 09/27/18 04:33 09/27/18 05:14 Bedside Glucose 183 170 178 White Blood Count 6.8 Red Blood Count 3.26 L Hemoglobin 9.0 L Hematocrit 28.4 L Mean Corpuscular 87.1 Volume Mean Corpuscular 27.6 L Hemoglobin Mean Corpuscular 31.7 L Hemoglobin Concent Red Cell 13.2 Distribution Width Platelet Count 267 Mean Platelet Volume 11.5 H Immature 0.300 Granulocytes % Neutrophils % 81.2 H Lymphocytes % 10.6 L Monocytes % 7.6 Eosinophils % 0.0 Basophils % 0.3 Nucleated Red Blood 0.0 Cells % Immature 0.020 Granulocytes # Neutrophils # 5.5 Lymphocytes # 0.7 L Monocytes # 0.5 Eosinophils # 0.0 Basophils # 0.0 Nucleated Red Blood 0.0 Cells # Sodium Level 143 Potassium Level 3.8 Chloride Level 107 Carbon Dioxide Level 27 Anion Gap 9 Blood Urea Nitrogen 67 H Creatinine 1.30 H Est Glomerular Filtrat Rate mL/min Glucose Level 181 Calcium Level 9.3 Phosphorus Level 3.7 Magnesium Level 2.5 B-Type Natriuretic 3820 H Peptide Subjective 24 Hr Interval Summary Free Text/Dictation Patient off Bipap this AM. Feels her breathing is unlabored but does become tach ypneic with conversation. No chest pain. Would like to eat but awaiting swallow evaluation. Now coughing up frothy sputum with occasional pink tinge. Exam/Review of Systems Exam Vitals Vital Signs Date Temp Pulse Resp B/P (MAP) Pulse Ox O2 O2 Flow FiO2 Time Delivery Rate 09/27/18 101 34 97/75 (82) 90 High Flow 06:00 09/27/18 100 04:45 09/27/18 98.8 00:00 09/26/18 15.0 06:17 Intake and Output 09/26/18 09/26/18 09/27/18 1515:00 23:00 07:00 IntakeIntake Total 476.666 ml 243.334 ml 0 ml OutputOutput Total 975 ml 645 ml 430 ml BalanceBalance -498.334 ml -401.666 ml -430 ml Constitutional: alert, oriented Respiratory: congested cough, crackles/rales Gastrointestinal: soft, nl liver, spleen, non-tender Neurological: C T TECH II-XII intact, nl mental status Results Results 24hrs Laboratory Tests Test 09/26/18 08:55 09/26/18 13:25 09/26/18 18:23 09/26/18 19:31 Bedside Glucose 132 163 178 Sodium Level 142 Potassium Level 3.8 Chloride Level 105 Carbon Dioxide Level 24 Anion Gap 13 Blood Urea Nitrogen 65 H Creatinine 1.27 H Est Glomerular Filtrat Rate mL/min Glucose Level 180 Calcium Level 8.9 Test 09/26/18 20:10 09/27/18 00:01 09/27/18 04:33 09/27/18 05:14 Bedside Glucose 183 170 178 White Blood Count 6.8 Red Blood Count 3.26 L Hemoglobin 9.0 L Hematocrit 28.4 L Mean Corpuscular 87.1 Volume Mean Corpuscular 27.6 L Hemoglobin Mean Corpuscular 31.7 L Hemoglobin Concent Red Cell 13.2 Distribution Width Platelet Count 267 Mean Platelet Volume 11.5 H Immature 0.300 Granulocytes % Neutrophils % 81.2 H Lymphocytes % 10.6 L Monocytes % 7.6 Eosinophils % 0.0 Basophils % 0.3 Nucleated Red Blood 0.0 Cells % Immature 0.020 Granulocytes # Neutrophils # 5.5 Lymphocytes # 0.7 L Monocytes # 0.5 Eosinophils # 0.0 Basophils # 0.0 Nucleated Red Blood 0.0 Cells # Sodium Level 143 Potassium Level 3.8 Chloride Level 107 Carbon Dioxide Level 27 Anion Gap 9 Blood Urea Nitrogen 67 H Creatinine 1.30 H Est Glomerular Filtrat Rate mL/min Glucose Level 181 Calcium Level 9.3 Phosphorus Level 3.7 Magnesium Level 2.5 B-Type Natriuretic 3820 H Peptide Medications Medication Current Medications Atorvastatin Calcium (Lipitor) 80 mg HS PO Last administered on 09/26/18at 19:53; Admin Dose 80 MG; Start 09/23/18 at 21:00 Aspirin (Halfprin) 81 mg DAILY PO Last administered on 09/26/18at 08:40; Admin Dose 81 MG; Start 09/24/18 at 09:00 IV Flush (NS 3 ml) 3 ml PER PROTOCOL IV ; Start 09/23/18 at 13:00 Lorazepam (Ativan) 0.5 mg Q8H PRN PO .ANXIETY Last administered on 09/26/18at 13:26; Admin Dose 0.5 MG; Start 09/23/18 at 13:00 Ondansetron HCl (Zofran Inj) 4 mg Q6H PRN IV NAUSEA/VOMITING; Start 09/23/18 at 13:00 Acetaminophen (Tylenol Tab) 650 mg Q6H PRN PO .PAIN 1-3 OR TEMP Last administered on 09/27/18at 06:44; Admin Dose 650 MG; Start 09/23/18 at 13:00 Zolpidem Tartrate (Ambien) 5 mg QHS PRN PO .INSOMNIA; Start 09/23/18 at 13:00 Docusate Sodium (Colace) 100 mg Q12H PRN PO .CONSTIPATION; Start 09/23/18 at 13:00 Magnesium Hydroxide (Milk Of Mag) 30 ml DAILY PRN PO .CONSTIPATION; Start 09/23/18 at 13:00 Felodipine (Plendil) 5 mg BID PO Last administered on 09/26/18at 19:53; Admin Dose 5 MG; Start 09/23/18 at 21:00 Miscellaneous Information 1 ea NOTE XX ; Start 09/23/18 at 13:30 Glucose (Glutose) 15 gm Q15M PRN PO DECREASED GLUCOSE; Start 09/23/18 at 13:30 Glucose (Glutose) 22.5 gm Q15M PRN PO DECREASED GLUCOSE; Start 09/23/18 at 13:30 Dextrose (D50w Syringe) 25 ml Q15M PRN IV DECREASED GLUCOSE; Start 09/23/18 at 13:30 Dextrose (D50w Syringe) 50 ml Q15M PRN IV DECREASED GLUCOSE; Start 09/23/18 at 13:30 Glucagon (Glucagen) 1 mg Q15M PRN IM DECREASED GLUCOSE; Start 09/23/18 at 13:30 Glucose (Glutose) 15 gm Q15M PRN BUCCAL DECREASED GLUCOSE; Start 09/23/18 at 13:30 Insulin Aspart (Novolog Insulin Pen) NOVOLOG *MODERATE* ALGORI... Q4 SC Last administered on 09/27/18at 05:19; Admin Dose 2 UNIT; Start 09/23/18 at 17:00 Aztreonam 2 gm/ Sodium Chloride 100 ml @ 100 mls/hr Q12 IVPB Last administered on 09/26/18at 20:11; Admin Dose 100 MLS/HR; Start 09/24/18 at 21:00 Levofloxacin/ Dextrose 100 ml @ 100 mls/hr Q48H IVPB Last administered on 09/26/18at 08:40; Admin Dose 100 MLS/HR; Start 09/24/18 at 09:30 Famotidine (Pepcid Iv) 20 mg DAILY IV Last administered on 09/26/18at 08:40; Admin Dose 20 MG; Start 09/25/18 at 09:00 Ferric Sodium Gluconate Complex 125 mg/Sodium Chloride 110 ml @ 110 mls/hr DAILY@1300 IVPB Last administered on 09/26/18 13:16; Admin Dose 110 MLS/HR; Start 09/25/18 at 13:00; Stop 09/29/18 at 13:59 Metoprolol Tartrate (Lopressor) 25 mg BID PO Last administered on 09/26/18 19:53; Admin Dose 25 MG; Start 09/25/18 at 13:00 Enoxaparin Sodium (Lovenox) 75 mg Q24H SC Last administered on 09/26/18 13:14; Admin Dose 75 MG; Start 09/26/18 at 13:00 Lidocaine (Lidoderm) 1 patch DAILY TD Last administered on 09/26/18 13:16; Admin Dose 1 PATCH; Start 09/26/18 at 12:00 Vancomycin HCl (Vanco Iv Per Pharmacy) VANCOMYCIN PER PHARMACY PER PROTOCOL XX ; Start 09/26/18 at 09:30 Vancomycin/Sodium Chloride 250 ml @ 125 mls/hr Q24H IVPB ; Start 09/27/18 at 11:00 Lorazepam (Ativan) 0.5 mg Q4H PRN IV ANXIETY Last administered on 09/26/18 19:54; Admin Dose 0.5 MG; Start 09/26/18 at 19:30 WISAM OHARA Sep 27, 2018 07:53
[2018-09-27] MEDS: ASPIRIN (EC) 81 MG TAB PO SCH (08:42)
[2018-09-27] MEDS: FAMOTIDINE 20 MG INJ IV SCH (08:42)
[2018-09-27] MEDS: AZTREONAM 2 GM in SOD CHLORIDE 0.9% 100 ML IVPB SCH ×2 (08:43→20:33)
[2018-09-27] MEDS: METOPROLOL 25 MG TAB PO SCH (08:43)
[2018-09-27] MEDS: FELODIPINE (ER) 5 MG TAB PO SCH (08:43)
[2018-09-27] MEDS: LIDOCAINE 5% PATCH TD SCH (08:44)
[2018-09-27] MEDS: VANCOMYCIN 750 MG (PMX) 250 ML IVPB SCH (11:32)
--- NOTE | 2018-09-27 12:33 | CONS ---
Assessment/Plan Cardiology Heart Failure Type: Acute Heart Failure Type: Diastolic Assessment/Plan Assessment/Plan (Daily) Impression and Recommendations: # SOB- consistent with acute CHF and PNA. Normal LV systolic function. Acute diastolic CHF # Atrial fibrillation, paroxysmal - on LMWH- will change to DOAC in 1-2 days # PNA- on BIPAP - hopefully can be weaned # NSTEMI- possible type 2 given underlying status however degree of troponin elevation argues against type 2 event # CHF based on hx and exam # possible short Afib episodes # DM OOC with component of DKA # CYRUS/ CKD # anemia # HTN # HL # advanced age >> IV lasix now >> monitor renal function >> Lovenox >> Eventual DOAC >> ASA, high dose statin, uptitrate BB with Afib as needed >> o2 >> Keep K >4 Mg >2 >> Once respiratory status is improved would consider coronary angiography Consultation Date/Type/Reason Admit Date/Time Sep 23, 2018 at 07:08 Initial Consult Date 09/24/18 Type of Consult Cardiology Date/Time of Note DATE: 09/27/18 TIME: 12:32 24 HR Interval Summary Free Text/Dictation Doing better overall. Still with SOB. Exam/Review of Systems Vital Signs Vitals Vital Signs Date Temp Pulse Resp B/P (MAP) Pulse Ox O2 O2 Flow FiO2 Time Delivery Rate 09/27/18 95 22 110/85 93 High Flow 11:00 (93) 09/27/18 98.3 08:00 09/27/18 100 04:45 09/26/18 15.0 06:17 Intake and Output 09/26/18 09/26/18 09/27/18 1515:00 23:00 07:00 IntakeIntake Total 476.666 ml 243.334 ml 0 ml OutputOutput Total 975 ml 645 ml 460 ml BalanceBalance -498.334 ml -401.666 ml -460 ml Exam Constitutional: alert, oriented, well developed Psych: no complaints, anxiety Head: normocephalic, atraumatic Eyes: nl conjunctiva, EOMI ENMT: nl external ears & nose Neck: supple, jvd (mild) Respiratory: other (coarse BS, midly decreased at bases) Cardiovascular: irregular rhythm (tachy) Gastrointestinal: soft Neurological: RECAPPER II-XII intact Skin: nl turgor Labs Result Diagram: 6/15/19 0433 09/27/18 0433 Results 24hrs Laboratory Tests Test 09/26/18 13:25 09/26/18 18:23 09/26/18 19:31 09/26/18 20:10 Bedside Glucose 163 178 183 Sodium Level 142 Potassium Level 3.8 Chloride Level 105 Carbon Dioxide Level 24 Anion Gap 13 Blood Urea Nitrogen 65 H Creatinine 1.27 H Est Glomerular Filtrat Rate mL/min Glucose Level 180 Calcium Level 8.9 Test 09/27/18 00:01 09/27/18 04:33 09/27/18 05:14 09/27/18 08:58 Bedside Glucose 170 178 150 White Blood Count 6.8 Red Blood Count 3.26 L Hemoglobin 9.0 L Hematocrit 28.4 L Mean Corpuscular 87.1 Volume Mean Corpuscular 27.6 L Hemoglobin Mean Corpuscular 31.7 L Hemoglobin Concent Red Cell 13.2 Distribution Width Platelet Count 267 Mean Platelet Volume 11.5 H Immature 0.300 Granulocytes % Neutrophils % 81.2 H Lymphocytes % 10.6 L Monocytes % 7.6 Eosinophils % 0.0 Basophils % 0.3 Nucleated Red Blood 0.0 Cells % Immature 0.020 Granulocytes # Neutrophils # 5.5 Lymphocytes # 0.7 L Monocytes # 0.5 Eosinophils # 0.0 Basophils # 0.0 Nucleated Red Blood 0.0 Cells # Sodium Level 143 Potassium Level 3.8 Chloride Level 107 Carbon Dioxide Level 27 Anion Gap 9 Blood Urea Nitrogen 67 H Creatinine 1.30 H Est Glomerular Filtrat Rate mL/min Glucose Level 181 Calcium Level 9.3 Phosphorus Level 3.7 Magnesium Level 2.5 B-Type Natriuretic 3820 H Peptide Medications Medications Current Medications Atorvastatin Calcium (Lipitor) 80 mg HS PO Last administered on 09/26/18at 19:53; Admin Dose 80 MG; Start 09/23/18 at 21:00 Aspirin (Halfprin) 81 mg DAILY PO Last administered on 09/27/18at 08:42; Admin Dose 81 MG; Start 09/24/18 at 09:00 IV Flush (NS 3 ml) 3 ml PER PROTOCOL IV ; Start 09/23/18 at 13:00 Lorazepam (Ativan) 0.5 mg Q8H PRN PO .ANXIETY Last administered on 09/26/18at 13:26; Admin Dose 0.5 MG; Start 09/23/18 at 13:00 Ondansetron HCl (Zofran Inj) 4 mg Q6H PRN IV NAUSEA/VOMITING; Start 09/23/18 at 13:00 Acetaminophen (Tylenol Tab) 650 mg Q6H PRN PO .PAIN 1-3 OR TEMP Last administered on 09/27/18at 06:44; Admin Dose 650 MG; Start 09/23/18 at 13:00 Zolpidem Tartrate (Ambien) 5 mg QHS PRN PO .INSOMNIA; Start 09/23/18 at 13:00 Docusate Sodium (Colace) 100 mg Q12H PRN PO .CONSTIPATION; Start 09/23/18 at 13:00 Magnesium Hydroxide (Milk Of Mag) 30 ml DAILY PRN PO .CONSTIPATION; Start 09/23/18 at 13:00 Felodipine (Plendil) 5 mg BID PO Last administered on 09/27/18at 08:43; Admin Dose 5 MG; Start 09/23/18 at 21:00 Miscellaneous Information 1 ea NOTE XX ; Start 09/23/18 at 13:30 Glucose (Glutose) 15 gm Q15M PRN PO DECREASED GLUCOSE; Start 09/23/18 at 13:30 Glucose (Glutose) 22.5 gm Q15M PRN PO DECREASED GLUCOSE; Start 09/23/18 at 13:30 Dextrose (D50w Syringe) 25 ml Q15M PRN IV DECREASED GLUCOSE; Start 09/23/18 at 13:30 Dextrose (D50w Syringe) 50 ml Q15M PRN IV DECREASED GLUCOSE; Start 09/23/18 at 13:30 Glucagon (Glucagen) 1 mg Q15M PRN IM DECREASED GLUCOSE; Start 09/23/18 at 13:30 Glucose (Glutose) 15 gm Q15M PRN BUCCAL DECREASED GLUCOSE; Start 09/23/18 at 13:30 Insulin Aspart (Novolog Insulin Pen) NOVOLOG *MODERATE* ALGORI... Q4 SC Last administered on 09/27/18at 09:01; Admin Dose 2 UNIT; Start 09/23/18 at 17:00 Aztreonam 2 gm/ Sodium Chloride 100 ml @ 100 mls/hr Q12 IVPB Last administered on 09/27/18at 08:43; Admin Dose 100 MLS/HR; Start 09/24/18 at 21:00 Levofloxacin/ Dextrose 100 ml @ 100 mls/hr Q48H IVPB Last administered on 09/26/18 08:40; Admin Dose 100 MLS/HR; Start 09/24/18 at 09:30 Famotidine (Pepcid Iv) 20 mg DAILY IV Last administered on 09/27/18 08:42; Admin Dose 20 MG; Start 09/25/18 at 09:00 Ferric Sodium Gluconate Complex 125 mg/Sodium Chloride 110 ml @ 110 mls/hr DAILY@1300 IVPB Last administered on 09/26/18 13:16; Admin Dose 110 MLS/HR; Start 09/25/18 at 13:00; Stop 09/29/18 at 13:59 Metoprolol Tartrate (Lopressor) 25 mg BID PO Last administered on 09/27/18 08:43; Admin Dose 25 MG; Start 09/25/18 at 13:00 Enoxaparin Sodium (Lovenox) 75 mg Q24H SC Last administered on 09/26/18 13:14; Admin Dose 75 MG; Start 09/26/18 at 13:00 Lidocaine (Lidoderm) 1 patch DAILY TD Last administered on 09/27/18 08:44; Admin Dose 1 PATCH; Start 09/26/18 at 12:00 Vancomycin HCl (Vanco Iv Per Pharmacy) VANCOMYCIN PER PHARMACY PER PROTOCOL XX ; Start 09/26/18 at 09:30 Vancomycin/Sodium Chloride 250 ml @ 125 mls/hr Q24H IVPB Last administered on 09/27/18 11:32; Admin Dose 125 MLS/HR; Start 09/27/18 at 11:00 Lorazepam (Ativan) 0.5 mg Q4H PRN IV ANXIETY Last administered on 09/26/18 19:54; Admin Dose 0.5 MG; Start 09/26/18 at 19:30 NAINA MANN MD Sep 27, 2018 12:33
[2018-09-27] MEDS ORDERED: POTASSIUM CHLORIDE (SR) 20 MEQ TAB PO STA (12:41)
[2018-09-27] MEDS: SOD FERRIC GLUC COMPLX 125 MG in SOD CHLORIDE 0.9% 100 ML IVPB SCH (12:41)
[2018-09-27] MEDS: ENOXAPARIN 80 MG/0.8 ML SYG SC SCH (12:45)
[2018-09-27] MEDS ORDERED: FUROSEMIDE 40 MG INJ IV ONE (13:00)
--- NOTE | 2018-09-27 13:18 | CONS ---
Consult Date/Type/Reason Admit Date/Time Sep 23, 2018 at 07:08 Initial Consult Date 09/25/18 Type of Consultation: Pulm/CCM Date/Time of Note DATE: 09/27/18 TIME: 13:12 Subjective Remains on high-flow FiO2. Feels better; less dyspneic. Objective Vitals Vital Signs Date Temp Pulse Resp B/P (MAP) Pulse Ox O2 O2 Flow FiO2 Time Delivery Rate 09/27/18 102 21 115/65 94 High Flow 13:00 (82) 09/27/18 98.6 12:00 09/27/18 100 11:30 09/26/18 15.0 06:17 Intake and Output 09/26/18 09/26/18 09/27/18 1515:00 23:00 07:00 IntakeIntake Total 476.666 ml 243.334 ml 0 ml OutputOutput Total 975 ml 645 ml 460 ml BalanceBalance -498.334 ml -401.666 ml -460 ml Exam HEENT: Neck supple; no JVD; no LAD CVS: RRR, S1 and S2 CHEST: Bibasilar rales ~ 1/[address] way posteriorly ABD: Soft, NT, + BS EXT: No c/c/e Results/Medications Result Diagram: 09/27/18 0433 09/27/18 0433 Results 24 hrs Laboratory Tests Test 09/26/18 13:25 09/26/18 18:23 09/26/18 19:31 09/26/18 20:10 Bedside Glucose 163 178 183 Sodium Level 142 Potassium Level 3.8 Chloride Level 105 Carbon Dioxide Level 24 Anion Gap 13 Blood Urea Nitrogen 65 H Creatinine 1.27 H Est Glomerular Filtrat Rate mL/min Glucose Level 180 Calcium Level 8.9 Test 09/27/18 00:01 09/27/18 04:33 09/27/18 05:14 09/27/18 08:58 Bedside Glucose 170 178 150 White Blood Count 6.8 Red Blood Count 3.26 L Hemoglobin 9.0 L Hematocrit 28.4 L Mean Corpuscular 87.1 Volume Mean Corpuscular 27.6 L Hemoglobin Mean Corpuscular 31.7 L Hemoglobin Concent Red Cell 13.2 Distribution Width Platelet Count 267 Mean Platelet Volume 11.5 H Immature 0.300 Granulocytes % Neutrophils % 81.2 H Lymphocytes % 10.6 L Monocytes % 7.6 Eosinophils % 0.0 Basophils % 0.3 Nucleated Red Blood 0.0 Cells % Immature 0.020 Granulocytes # Neutrophils # 5.5 Lymphocytes # 0.7 L Monocytes # 0.5 Eosinophils # 0.0 Basophils # 0.0 Nucleated Red Blood 0.0 Cells # Sodium Level 143 Potassium Level 3.8 Chloride Level 107 Carbon Dioxide Level 27 Anion Gap 9 Blood Urea Nitrogen 67 H Creatinine 1.30 H Est Glomerular Filtrat Rate mL/min Glucose Level 181 Calcium Level 9.3 Phosphorus Level 3.7 Magnesium Level 2.5 B-Type Natriuretic 3820 H Peptide Test 09/27/18 12:42 Bedside Glucose 162 Home Meds Reported Medications Omeprazole* (Omeprazole*) 40 Mg Capsule.dr, 40 MG PO DAILY, #30 CAP 09/23/18 Ferrous Sulfate* (Ferrous Sulfate*) 325 Mg Tabec, 325 MG PO TID, TAB 09/23/18 Felodipine* (Felodipine*) 5 Mg Tab.sr.24h, 5 MG PO BID, TAB.SA 09/23/18 Ascorbic Acid* (Vitamin C*) 500 Mg Capsule.sa, 500 MG PO DAILY, CAP 09/23/18 Metformin Hcl* (Metformin Hcl*) 500 Mg Tablet, 2000 MG PO WITH BREAKFAST DINNE, #60 TAB 09/23/18 Atorvastatin Calcium* (Atorvastatin Calcium*) 20 Mg Tablet, 20 MG PO QHS, #30 TAB 09/23/18 Losartan-Hydrochlorothiazide (Losartan-HCTZ) 100-25 Mg Tab, 1 TAB PO DAILY, TAB 09/23/18 Discontinued Reported Medications Omeprazole* (Omeprazole*) 40 Mg Capsule.dr, 40 MG PO DAILY, #30 CAP 06/12/16 Ferrous Sulfate* (Ferrous Sulfate*) 325 Mg Tabec, 325 MG PO DAILY, TAB 06/12/16 Felodipine* (Felodipine*) 5 Mg Tab.sr.24h, 5 MG PO DAILY, TAB.SA 06/12/16 Ascorbic Acid* (Vitamin C*) 500 Mg Capsule.sa, 500 MG PO DAILY, CAP 06/12/16 Metformin Hcl* (Metformin Hcl*) 500 Mg Tablet, 2000 MG PO WITH BREAKFAST DINNE, #30 TAB 06/12/16 Atorvastatin Calcium* (Atorvastatin Calcium*) 20 Mg Tablet, 20 MG PO QHS, #30 TAB 06/12/16 Losartan-Hydrochlorothiazide (Losartan-HCTZ) 100-25 Mg Tab, 1 TAB PO DAILY, TAB 06/12/16 Medications Current Medications Atorvastatin Calcium (Lipitor) 80 mg HS PO Last administered on 09/26/18at 19:53; Admin Dose 80 MG; Start 09/23/18 at 21:00 Aspirin (Halfprin) 81 mg DAILY PO Last administered on 09/27/18at 08:42; Admin Dose 81 MG; Start 09/24/18 at 09:00 IV Flush (NS 3 ml) 3 ml PER PROTOCOL IV ; Start 09/23/18 at 13:00 Lorazepam (Ativan) 0.5 mg Q8H PRN PO .ANXIETY Last administered on 09/26/18at 13:26; Admin Dose 0.5 MG; Start 09/23/18 at 13:00 Ondansetron HCl (Zofran Inj) 4 mg Q6H PRN IV NAUSEA/VOMITING; Start 09/23/18 at 13:00 Acetaminophen (Tylenol Tab) 650 mg Q6H PRN PO .PAIN 1-3 OR TEMP Last administered on 09/27/18at 06:44; Admin Dose 650 MG; Start 09/23/18 at 13:00 Zolpidem Tartrate (Ambien) 5 mg QHS PRN PO .INSOMNIA; Start 09/23/18 at 13:00 Docusate Sodium (Colace) 100 mg Q12H PRN PO .CONSTIPATION; Start 09/23/18 at 13:00 Magnesium Hydroxide (Milk Of Mag) 30 ml DAILY PRN PO .CONSTIPATION; Start 09/23/18 at 13:00 Miscellaneous Information 1 ea NOTE XX ; Start 09/23/18 at 13:30 Glucose (Glutose) 15 gm Q15M PRN PO DECREASED GLUCOSE; Start 09/23/18 at 13:30 Glucose (Glutose) 22.5 gm Q15M PRN PO DECREASED GLUCOSE; Start 09/23/18 at 13:30 Dextrose (D50w Syringe) 25 ml Q15M PRN IV DECREASED GLUCOSE; Start 09/23/18 at 13:30 Dextrose (D50w Syringe) 50 ml Q15M PRN IV DECREASED GLUCOSE; Start 09/23/18 at 13:30 Glucagon (Glucagen) 1 mg Q15M PRN IM DECREASED GLUCOSE; Start 09/23/18 at 13:30 Glucose (Glutose) 15 gm Q15M PRN BUCCAL DECREASED GLUCOSE; Start 09/23/18 at 13:30 Insulin Aspart (Novolog Insulin Pen) NOVOLOG *MODERATE* ALGORI... Q4 SC Last administered on 09/27/18 12:44; Admin Dose 2 UNIT; Start 09/23/18 at 17:00 Aztreonam 2 gm/ Sodium Chloride 100 ml @ 100 mls/hr Q12 IVPB Last administered on 09/27/18 08:43; Admin Dose 100 MLS/HR; Start 09/24/18 at 21:00 Levofloxacin/ Dextrose 100 ml @ 100 mls/hr Q48H IVPB Last administered on 09/26/18 08:40; Admin Dose 100 MLS/HR; Start 09/24/18 at 09:30 Famotidine (Pepcid Iv) 20 mg DAILY IV Last administered on 09/27/18 08:42; Admin Dose 20 MG; Start 09/25/18 at 09:00 Ferric Sodium Gluconate Complex 125 mg/Sodium Chloride 110 ml @ 110 mls/hr DAILY@1300 IVPB Last administered on 09/27/18 12:41; Admin Dose 110 MLS/HR; Start 09/25/18 at 13:00; Stop 09/29/18 at 13:59 Enoxaparin Sodium (Lovenox) 75 mg Q24H SC Last administered on 09/27/18 12:45; Admin Dose 75 MG; Start 09/26/18 at 13:00 Lidocaine (Lidoderm) 1 patch DAILY TD Last administered on 09/27/18 08:44; Admin Dose 1 PATCH; Start 09/26/18 at 12:00 Vancomycin HCl (Vanco Iv Per Pharmacy) VANCOMYCIN PER PHARMACY PER PROTOCOL XX ; Start 09/26/18 at 09:30 Vancomycin/Sodium Chloride 250 ml @ 125 mls/hr Q24H IVPB Last administered on 09/27/18 11:32; Admin Dose 125 MLS/HR; Start 09/27/18 at 11:00 Lorazepam (Ativan) 0.5 mg Q4H PRN IV ANXIETY Last administered on 09/26/18 19:54; Admin Dose 0.5 MG; Start 09/26/18 at 19:30 Metoprolol Tartrate (Lopressor) 50 mg BID PO ; Start 6/15/19 at 21:00 Felodipine (Plendil) 2.5 mg DAILY PO ; Start 09/28/18 at 09:00 Assessment/Plan Assessment/Plan (Daily) IMP: 1. ADHF 2. HFpEF 3. Acute hypoxemic respiratory failure 2/2 #1 4. Possible pneumonia 5. Type II NSTEMI 6. CYRUS 7. DM 8. PAF RECS: 1. Continue high-flow FiO2 2. Aggressive diuresis 3. Follow I/O's and renal function 4. De-escalate abx 5. Continue ATC 6. Am labs/CXR 35 min cc time HERSON ALMAZAN MD Sep 27, 2018 13:18
[2018-09-27] MEDS: LORAZEPAM 2 MG INJ IV PRN ×2 (13:40→21:33)
[2018-09-27] MEDS: ATORVASTATIN 80 MG TAB PO SCH (20:30)
[2018-09-27] MEDS: METOPROLOL 50 MG TAB PO SCH (20:32)
[2018-09-28] VITALS (94 sets, daily range): BP systolic 98–134; BP diastolic 44–84; PULSE 68–99; RESP 15–32
[2018-09-28] MEDS: LORAZEPAM 2 MG INJ IV PRN (02:27)
[2018-09-28] MEDS: INSULIN ASPART [NOVOLOG] 3 ML PEN SC SCH ×6 (02:59→20:47)
--- NOTE | 2018-09-28 08:55 | PN ---
Date/Time of Note Date/Time of Note DATE: 09/28/18 TIME: 08:49 Assessment/Plan VTE Prophylaxis Risk score (from Ns)>0 risk: 10 SCD applied (from Ns): Yes Pharmacological prophylaxis: LMWH Lines/Catheters IV Catheter Type (from Nrs): Peripheral IV Urinary Cath still in place: Yes Reason Cath still needed: other (indicate) Assessment/Plan Assessment/Plan 1.) Antibiotics adjusted. On Levaquin/Vancomycin. Pulmonary following. 2.) Await Xray from this morning, likely to need additional diuresis as she has crackles on exam. Monitor BUN/Cr. 3.) Continue current cardiac Rx, defer cardiac cath to cardiology. Cr down to 1.18 this morning. 4.) Defer management of Bipap to pulmonary, try to wean as tolerated. 5.) Diabetes overall stable. 6.) BP controlled. 7.) DVT Prophylaxis - SQ Lovenox. Result Diagram: 09/28/18 0455 09/28/18 0455 Results 24hrs Laboratory Tests Test 09/27/18 08:58 09/27/18 12:42 09/27/18 16:56 09/27/18 20:35 Bedside Glucose 150 162 147 132 Test 09/28/18 01:51 09/28/18 04:55 09/28/18 05:00 09/28/18 05:31 Bedside Glucose 170 164 White Blood Count 6.5 Red Blood Count 3.27 L Hemoglobin 9.1 L Hematocrit 28.6 L Mean Corpuscular 87.5 Volume Mean Corpuscular 27.8 L Hemoglobin Mean Corpuscular 31.8 L Hemoglobin Concen t Red Cell 13.3 Distribution Width Platelet Count 277 Mean Platelet 11.2 H Volume Immature 1.100 H Granulocytes % Neutrophils % 78.7 H Lymphocytes % 13.8 L Monocytes % 5.5 Eosinophils % 0.6 Basophils % 0.3 Nucleated Red 0.0 Blood Cells % Immature 0.070 H Granulocytes # Neutrophils # 5.2 Lymphocytes # 0.9 Monocytes # 0.4 Eosinophils # 0.0 Basophils # 0.0 Nucleated Red 0.0 Blood Cells # Sodium Level 146 H Potassium Level 3.7 Chloride Level 109 Carbon Dioxide 27 Level Anion Gap 10 Blood Urea 71 H Nitrogen Creatinine 1.18 H Est Glomerular Filtrat Rate mL/min Glucose Level 164 Lactic Acid Level 1.1 Calcium Level 8.8 Procalcitonin 0.36 H Blood Gas Blood arterial Specimen Source Arterial Blood 09/28/2018 5:01:4 Date Drawn 8 AM Arterial Blood pH 7.446 (Temp corrected) Arterial Blood 38.3 pCO2 (Temp correct) Arterial Blood 67.9 L pO2 (Temp corrected) Arterial Blood 25.8 HCO3 Arterial Blood 1.7 Base Excess Arterial Blood 92.8 L Oxygen Saturation Nash Test ACCEPTAB Arterial Blood Right Radial Gas Puncture Site Arterial 0.4 Blood Carboxyhemo globin Arterial Blood 0.1 Methemoglobin Blood Gas A-a O2 390.0 H Differential Oxyhemoglobin 92.3 L Percent Blood Gas 37.0 Temperature Blood Gas 20.0 Respiration Rate Blood Gas Actual 20 Respiration Rate Blood Gas MASK - BIPAP Modality FiO2 70.0 Blood Gas 15 IPAP/EPAP Ratio Blood Gas Notified Whom Blood Gas 09/28/2018 5:29:3 Notified Time 3 AM Subjective 24 Hr Interval Summary Free Text/Dictation Patient became confused and anxious overnight. Remains on Bipap this morning. Oxygen sats around 94% when taking good breaths. Exam/Review of Systems Exam Vitals Vital Signs Date Temp Pulse Resp B/P (MAP) Pulse Ox O2 O2 Flow FiO2 Time Delivery Rate 09/28/18 74 21 91 06:30 09/28/18 124/54 BIPAP 06:00 (77) 09/28/18 60 05:32 09/28/18 98.7 04:09 09/26/18 15.0 06:17 Intake and Output 09/27/18 09/27/18 09/28/18 1515:00 23:00 07:00 IntakeIntake Total 460 ml 0 ml 0 ml OutputOutput Total 380 ml 300 ml 750 ml BalanceBalance 80 ml -300 ml -750 ml Constitutional: frail Psych: anxiety Respiratory: crackles/rales Gastrointestinal: soft, non-tender Results Results 24hrs Laboratory Tests Test 09/27/18 08:58 09/27/18 12:42 09/27/18 16:56 09/27/18 20:35 Bedside Glucose 150 162 147 132 Test 09/28/18 01:51 09/28/18 04:55 09/28/18 05:00 09/28/18 05:31 Bedside Glucose 170 164 White Blood Count 6.5 Red Blood Count 3.27 L Hemoglobin 9.1 L Hematocrit 28.6 L Mean Corpuscular 87.5 Volume Mean Corpuscular 27.8 L Hemoglobin Mean Corpuscular 31.8 L Hemoglobin Concen t Red Cell 13.3 Distribution Width Platelet Count 277 Mean Platelet 11.2 H Volume Immature 1.100 H Granulocytes % Neutrophils % 78.7 H Lymphocytes % 13.8 L Monocytes % 5.5 Eosinophils % 0.6 Basophils % 0.3 Nucleated Red 0.0 Blood Cells % Immature 0.070 H Granulocytes # Neutrophils # 5.2 Lymphocytes # 0.9 Monocytes # 0.4 Eosinophils # 0.0 Basophils # 0.0 Nucleated Red 0.0 Blood Cells # Sodium Level 146 H Potassium Level 3.7 Chloride Level 109 Carbon Dioxide 27 Level Anion Gap 10 Blood Urea 71 H Nitrogen Creatinine 1.18 H Est Glomerular Filtrat Rate mL/min Glucose Level 164 Lactic Acid Level 1.1 Calcium Level 8.8 Procalcitonin 0.36 H Blood Gas Blood arterial Specimen Source Arterial Blood 09/28/2018 5:01:4 Date Drawn 8 AM Arterial Blood pH 7.446 (Temp corrected) Arterial Blood 38.3 pCO2 (Temp correct) Arterial Blood 67.9 L pO2 (Temp corrected) Arterial Blood 25.8 HCO3 Arterial Blood 1.7 Base Excess Arterial Blood 92.8 L Oxygen Saturation Nash Test ACCEPTAB Arterial Blood Right Radial Gas Puncture Site Arterial 0.4 Blood Carboxyhemo globin Arterial Blood 0.1 Methemoglobin Blood Gas A-a O2 390.0 H Differential Oxyhemoglobin 92.3 L Percent Blood Gas 37.0 Temperature Blood Gas 20.0 Respiration Rate Blood Gas Actual 20 Respiration Rate Blood Gas MASK - BIPAP Modality FiO2 70.0 Blood Gas 15 IPAP/EPAP Ratio Blood Gas Notified Whom Blood Gas 09/28/2018 5:29:3 Notified Time 3 AM Medications Medication Current Medications Atorvastatin Calcium (Lipitor) 80 mg HS PO Last administered on 09/27/18at 20:30; Admin Dose 80 MG; Start 09/23/18 at 21:00 Aspirin (Halfprin) 81 mg DAILY PO Last administered on 09/27/18at 08:42; Admin Dose 81 MG; Start 09/24/18 at 09:00 IV Flush (NS 3 ml) 3 ml PER PROTOCOL IV ; Start 09/23/18 at 13:00 Lorazepam (Ativan) 0.5 mg Q8H PRN PO .ANXIETY Last administered on 09/26/18at 13:26; Admin Dose 0.5 MG; Start 09/23/18 at 13:00 Ondansetron HCl (Zofran Inj) 4 mg Q6H PRN IV NAUSEA/VOMITING; Start 09/23/18 at 13:00 Acetaminophen (Tylenol Tab) 650 mg Q6H PRN PO .PAIN 1-3 OR TEMP Last administered on 09/27/18at 06:44; Admin Dose 650 MG; Start 09/23/18 at 13:00 Zolpidem Tartrate (Ambien) 5 mg QHS PRN PO .INSOMNIA; Start 09/23/18 at 13:00 Docusate Sodium (Colace) 100 mg Q12H PRN PO .CONSTIPATION; Start 09/23/18 at 13:00 Magnesium Hydroxide (Milk Of Mag) 30 ml DAILY PRN PO .CONSTIPATION; Start 09/23/18 at 13:00 Miscellaneous Information 1 ea NOTE XX ; Start 09/23/18 at 13:30 Glucose (Glutose) 15 gm Q15M PRN PO DECREASED GLUCOSE; Start 09/23/18 at 13:30 Glucose (Glutose) 22.5 gm Q15M PRN PO DECREASED GLUCOSE; Start 09/23/18 at 13:30 Dextrose (D50w Syringe) 25 ml Q15M PRN IV DECREASED GLUCOSE; Start 09/23/18 at 13:30 Dextrose (D50w Syringe) 50 ml Q15M PRN IV DECREASED GLUCOSE; Start 09/23/18 at 13:30 Glucagon (Glucagen) 1 mg Q15M PRN IM DECREASED GLUCOSE; Start 09/23/18 at 13:30 Glucose (Glutose) 15 gm Q15M PRN BUCCAL DECREASED GLUCOSE; Start 09/23/18 at 13:30 Insulin Aspart (Novolog Insulin Pen) NOVOLOG *MODERATE* ALGORI... Q4 SC Last administered on 09/28/18at 05:40; Admin Dose 2 UNIT; Start 09/23/18 at 17:00 Aztreonam 2 gm/ Sodium Chloride 100 ml @ 100 mls/hr Q12 IVPB Last administered on 09/27/18at 20:33; Admin Dose 100 MLS/HR; Start 09/24/18 at 21:00 Levofloxacin/ Dextrose 100 ml @ 100 mls/hr Q48H IVPB Last administered on 09/26/18 08:40; Admin Dose 100 MLS/HR; Start 09/24/18 at 09:30 Famotidine (Pepcid Iv) 20 mg DAILY IV Last administered on 09/27/18 08:42; Admin Dose 20 MG; Start 09/25/18 at 09:00 Ferric Sodium Gluconate Complex 125 mg/Sodium Chloride 110 ml @ 110 mls/hr DAILY@1300 IVPB Last administered on 09/27/18 12:41; Admin Dose 110 MLS/HR; Start 09/25/18 at 13:00; Stop 09/29/18 at 13:59 Enoxaparin Sodium (Lovenox) 75 mg Q24H SC Last administered on 09/27/18 12:45; Admin Dose 75 MG; Start 09/26/18 at 13:00 Lidocaine (Lidoderm) 1 patch DAILY TD Last administered on 09/27/18 08:44; Admin Dose 1 PATCH; Start 09/26/18 at 12:00 Vancomycin HCl (Vanco Iv Per Pharmacy) VANCOMYCIN PER PHARMACY PER PROTOCOL XX ; Start 09/26/18 at 09:30 Vancomycin/Sodium Chloride 250 ml @ 125 mls/hr Q24H IVPB Last administered on 09/27/18 11:32; Admin Dose 125 MLS/HR; Start 09/27/18 at 11:00 Lorazepam (Ativan) 0.5 mg Q4H PRN IV ANXIETY Last administered on 09/28/18 02:27; Admin Dose 0.5 MG; Start 09/26/18 at 19:30 Metoprolol Tartrate (Lopressor) 50 mg BID PO Last administered on 09/27/18at 20:32; Admin Dose 50 MG; Start 09/27/18 at 21:00 Felodipine (Plendil) 2.5 mg DAILY PO ; Start 09/29/18 at 09:00 Felodipine (Plendil) 5 mg ONCE ONCE PO ; Start 09/28/18 at 09:00; Stop 09/28/18 at 09:01 WISAM OHARA 16, 2019 08:55
[2018-09-28] MEDS ORDERED: FELODIPINE (ER) 5 MG TAB PO ONE (09:00)
[2018-09-28] MEDS: ASPIRIN (EC) 81 MG TAB PO SCH (10:22)
[2018-09-28] MEDS: METOPROLOL 50 MG TAB PO SCH ×2 (10:23→20:21)
[2018-09-28] MEDS: LEVOFLOXACIN 500MG/D5W (PMX) 100 ML IVPB SCH (10:24)
[2018-09-28] MEDS: LIDOCAINE 5% PATCH TD SCH (10:25)
[2018-09-28] MEDS: AZTREONAM 2 GM in SOD CHLORIDE 0.9% 100 ML IVPB SCH ×3 (10:38→21:30)
[2018-09-28] MEDS: FAMOTIDINE 20 MG INJ IV SCH (11:01)
--- NOTE | 2018-09-28 12:30 | CONS ---
Consult Date/Type/Reason Admit Date/Time Sep 23, 2018 at 07:08 Initial Consult Date 09/25/18 Type of Consultation: Pulm/CCM Date/Time of Note DATE: 09/28/18 TIME: 12:25 Subjective Remains on high-flow FiO2 via vapotherm. c/o dyspnea. Objective Vitals Vital Signs Date Temp Pulse Resp B/P (MAP) Pulse Ox O2 O2 Flow FiO2 Time Delivery Rate 09/28/18 76 18 86 11:30 09/28/18 120/52 11:00 (74) 09/28/18 100 10:15 09/28/18 High Flow 09:00 09/28/18 98.0 08:00 09/26/18 15.0 06:17 Intake and Output 09/27/18 09/27/18 09/28/18 1515:00 23:00 07:00 IntakeIntake Total 460 ml 0 ml 0 ml OutputOutput Total 380 ml 300 ml 750 ml BalanceBalance 80 ml -300 ml -750 ml Exam HEENT: Neck supple; +JVD; no LAD CVS: RRR, S1 and S2 CHEST: Bibasilar rales ~ 1/[address] way posteriorly ABD: Soft, NT, + BS EXT: No c/c/e Results/Medications Result Diagram: 09/28/18 0455 09/28/18 0455 Results 24 hrs Laboratory Tests Test 09/27/18 12:42 09/27/18 16:56 09/27/18 20:35 09/28/18 01:51 Bedside Glucose 162 147 132 170 Test 09/28/18 04:55 09/28/18 05:00 09/28/18 05:31 09/28/18 10:52 White Blood Count 6.5 Red Blood Count 3.27 L Hemoglobin 9.1 L Hematocrit 28.6 L Mean Corpuscular 87.5 Volume Mean Corpuscular 27.8 L Hemoglobin Mean Corpuscular 31.8 L Hemoglobin Concen t Red Cell 13.3 Distribution Width Platelet Count 277 Mean Platelet 11.2 H Volume Immature 1.100 H Granulocytes % Neutrophils % 78.7 H Lymphocytes % 13.8 L Monocytes % 5.5 Eosinophils % 0.6 Basophils % 0.3 Nucleated Red 0.0 Blood Cells % Immature 0.070 H Granulocytes # Neutrophils # 5.2 Lymphocytes # 0.9 Monocytes # 0.4 Eosinophils # 0.0 Basophils # 0.0 Nucleated Red 0.0 Blood Cells # Sodium Level 146 H Potassium Level 3.7 Chloride Level 109 Carbon Dioxide 27 Level Anion Gap 10 Blood Urea 71 H Nitrogen Creatinine 1.18 H Est Glomerular Filtrat Rate mL/min Glucose Level 164 Lactic Acid Level 1.1 Calcium Level 8.8 Procalcitonin 0.36 H Blood Gas Blood arterial Specimen Source Arterial Blood 09/28/2018 5:01:4 Date Drawn 8 AM Arterial Blood pH 7.446 (Temp corrected) Arterial Blood 38.3 pCO2 (Temp correct) Arterial Blood 67.9 L pO2 (Temp corrected) Arterial Blood 25.8 HCO3 Arterial Blood 1.7 Base Excess Arterial Blood 92.8 L Oxygen Saturation Nash Test ACCEPTAB Arterial Blood Right Radial Gas Puncture Site Arterial 0.4 Blood Carboxyhemo globin Arterial Blood 0.1 Methemoglobin Blood Gas A-a O2 390.0 H Differential Oxyhemoglobin 92.3 L Percent Blood Gas 37.0 Temperature Blood Gas 20.0 Respiration Rate Blood Gas Actual 20 Respiration Rate Blood Gas MASK - BIPAP Modality FiO2 70.0 Blood Gas 15/5 IPAP/EPAP Ratio Blood Gas Notified Whom Blood Gas 09/28/2018 5:29:3 Notified Time 3 AM Bedside Glucose 164 139 Home Meds Reported Medications Omeprazole* (Omeprazole*) 40 Mg Capsule.dr, 40 MG PO DAILY, #30 CAP 09/23/18 Ferrous Sulfate* (Ferrous Sulfate*) 325 Mg Tabec, 325 MG PO TID, TAB 09/23/18 Felodipine* (Felodipine*) 5 Mg Tab.sr.24h, 5 MG PO BID, TAB.SA 09/23/18 Ascorbic Acid* (Vitamin C*) 500 Mg Capsule.sa, 500 MG PO DAILY, CAP 09/23/18 Metformin Hcl* (Metformin Hcl*) 500 Mg Tablet, 2000 MG PO WITH BREAKFAST DINNE, #60 TAB 09/23/18 Atorvastatin Calcium* (Atorvastatin Calcium*) 20 Mg Tablet, 20 MG PO QHS, #30 TAB 09/23/18 Losartan-Hydrochlorothiazide (Losartan-HCTZ) 100-25 Mg Tab, 1 TAB PO DAILY, TAB 09/23/18 Discontinued Reported Medications Omeprazole* (Omeprazole*) 40 Mg Capsule.dr, 40 MG PO DAILY, #30 CAP 06/12/16 Ferrous Sulfate* (Ferrous Sulfate*) 325 Mg Tabec, 325 MG PO DAILY, TAB 06/12/16 Felodipine* (Felodipine*) 5 Mg Tab.sr.24h, 5 MG PO DAILY, TAB.SA 06/12/16 Ascorbic Acid* (Vitamin C*) 500 Mg Capsule.sa, 500 MG PO DAILY, CAP 06/12/16 Metformin Hcl* (Metformin Hcl*) 500 Mg Tablet, 2000 MG PO WITH BREAKFAST DINNE, #30 TAB 06/12/16 Atorvastatin Calcium* (Atorvastatin Calcium*) 20 Mg Tablet, 20 MG PO QHS, #30 TAB 06/12/16 Losartan-Hydrochlorothiazide (Losartan-HCTZ) 100-25 Mg Tab, 1 TAB PO DAILY, TAB 06/12/16 Medications Current Medications Atorvastatin Calcium (Lipitor) 80 mg HS PO Last administered on 09/27/18at 20:30; Admin Dose 80 MG; Start 09/23/18 at 21:00 Aspirin (Halfprin) 81 mg DAILY PO Last administered on 09/28/18at 10:22; Admin Dose 81 MG; Start 09/24/18 at 09:00 IV Flush (NS 3 ml) 3 ml PER PROTOCOL IV ; Start 09/23/18 at 13:00 Lorazepam (Ativan) 0.5 mg Q8H PRN PO .ANXIETY Last administered on 09/26/18at 13:26; Admin Dose 0.5 MG; Start 09/23/18 at 13:00 Ondansetron HCl (Zofran Inj) 4 mg Q6H PRN IV NAUSEA/VOMITING; Start 09/23/18 at 13:00 Acetaminophen (Tylenol Tab) 650 mg Q6H PRN PO .PAIN 1-3 OR TEMP Last administered on 09/27/18at 06:44; Admin Dose 650 MG; Start 09/23/18 at 13:00 Zolpidem Tartrate (Ambien) 5 mg QHS PRN PO .INSOMNIA; Start 09/23/18 at 13:00 Docusate Sodium (Colace) 100 mg Q12H PRN PO .CONSTIPATION; Start 09/23/18 at 13:00 Magnesium Hydroxide (Milk Of Mag) 30 ml DAILY PRN PO .CONSTIPATION; Start 09/23/18 at 13:00 Miscellaneous Information 1 ea NOTE XX ; Start 09/23/18 at 13:30 Glucose (Glutose) 15 gm Q15M PRN PO DECREASED GLUCOSE; Start 09/23/18 at 13:30 Glucose (Glutose) 22.5 gm Q15M PRN PO DECREASED GLUCOSE; Start 09/23/18 at 13:30 Dextrose (D50w Syringe) 25 ml Q15M PRN IV DECREASED GLUCOSE; Start 09/23/18 at 13:30 Dextrose (D50w Syringe) 50 ml Q15M PRN IV DECREASED GLUCOSE; Start 09/23/18 at 13:30 Glucagon (Glucagen) 1 mg Q15M PRN IM DECREASED GLUCOSE; Start 09/23/18 at 13:30 Glucose (Glutose) 15 gm Q15M PRN BUCCAL DECREASED GLUCOSE; Start 09/23/18 at 13:30 Insulin Aspart (Novolog Insulin Pen) NOVOLOG *MODERATE* ALGORI... Q4 SC Last administered on 09/28/18at 10:58; Admin Dose 2 UNIT; Start 09/23/18 at 17:00 Aztreonam 2 gm/ Sodium Chloride 100 ml @ 100 mls/hr Q12 IVPB Last administered on 09/28/18at 10:38; Admin Dose 100 MLS/HR; Start 09/24/18 at 21:00 Levofloxacin/ Dextrose 100 ml @ 100 mls/hr Q48H IVPB Last administered on 09/28/18 10:24; Admin Dose 100 MLS/HR; Start 09/24/18 at 09:30 Famotidine (Pepcid Iv) 20 mg DAILY IV Last administered on 09/28/18at 11:01; Admin Dose 20 MG; Start 09/25/18 at 09:00 Ferric Sodium Gluconate Complex 125 mg/Sodium Chloride 110 ml @ 110 mls/hr DAILY@1300 IVPB Last administered on 09/27/18at 12:41; Admin Dose 110 MLS/HR; Start 09/25/18 at 13:00; Stop 09/29/18 at 13:59 Enoxaparin Sodium (Lovenox) 75 mg Q24H SC Last administered on 09/27/18at 12:45; Admin Dose 75 MG; Start 09/26/18 at 13:00 Lidocaine (Lidoderm) 1 patch DAILY TD Last administered on 09/28/18at 10:25; Admin Dose 1 PATCH; Start 09/26/18 at 12:00 Vancomycin HCl (Vanco Iv Per Pharmacy) VANCOMYCIN PER PHARMACY PER PROTOCOL XX ; Start 09/26/18 at 09:30 Vancomycin/Sodium Chloride 250 ml @ 125 mls/hr Q24H IVPB Last administered on 09/27/18at 11:32; Admin Dose 125 MLS/HR; Start 09/27/18 at 11:00 Lorazepam (Ativan) 0.5 mg Q4H PRN IV ANXIETY Last administered on 09/28/18at 02:27; Admin Dose 0.5 MG; Start 09/26/18 at 19:30 Metoprolol Tartrate (Lopressor) 50 mg BID PO Last administered on 09/28/18at 10:23; Admin Dose 50 MG; Start 09/27/18 at 21:00 Felodipine (Plendil) 2.5 mg DAILY PO ; Start 09/29/18 at 09:00 Assessment/Plan Assessment/Plan (Daily) IMP: 1. ADHF 2. HFpEF 3. Acute hypoxemic respiratory failure 2/2 #1 4. Possible pneumonia 5. Type II NSTEMI 6. CYRUS 7. DM 8. PAF RECS: 1. Continue high-flow FiO2--> BiPAP as needed 2. Aggressive diuresis to keep 1-2 L negative/daily and/or until bump in creatinine 3. Follow I/O's and renal function 4. De-escalate abx 5. Continue ATC 6. Am labs/CXR 7. Will consider non-contrast CT chest to better evaluate parenchymal airspace process given the severity of shunt physiology and poor response to FiO2. 8. Would consider ECHO with bubble, if not done 35 min cc time HERSON ALMAZAN MD Sep 28, 2018 12:30
--- NOTE | 2018-09-28 13:03 | CONS ---
Assessment/Plan Cardiology Heart Failure Type: Acute Heart Failure Type: Diastolic Assessment/Plan Assessment/Plan (Daily) # SOB- consistent with acute CHF and PNA. Normal LV systolic function. Acute diastolic CHF # Atrial fibrillation, paroxysmal - on LMWH- will change to DOAC in 1-2 days # PNA- on BIPAP - hopefully can be weaned # NSTEMI- possible type 2 given underlying status however degree of troponin elevation argues against type 2 event # CHF based on hx and exam # possible short Afib episodes # DM OOC with component of DKA # CYRUS/ CKD # anemia # HTN # HL # advanced age >> More aggressive diuresis with IV lasix >> monitor renal function >> Lovenox >> Eventual DOAC >> ASA, high dose statin, uptitrate BB with Afib as needed >> o2 >> Keep K >4 Mg >2 >> Once respiratory status is improved would consider coronary angiography >> agree with chest CT given findings out of proportion to her current diagnoses. >> d/w family and pulmonary Consultation Date/Type/Reason Admit Date/Time Sep 23, 2018 at 07:08 Initial Consult Date 09/24/18 Type of Consult Cardiology Date/Time of Note DATE: 09/28/18 TIME: 13:02 24 HR Interval Summary Free Text/Dictation Still with SOB and not happy about not eating. Exam/Review of Systems Vital Signs Vitals Vital Signs Date Temp Pulse Resp B/P (MAP) Pulse Ox O2 O2 Flow FiO2 Time Delivery Rate 09/28/18 99 80 12:37 09/28/18 81 12:31 09/28/18 18 11:30 09/28/18 120/52 11:00 (74) 09/28/18 High Flow 09:00 09/28/18 98.0 08:00 09/26/18 15.0 06:17 Intake and Output 09/27/18 09/27/18 09/28/18 1515:00 23:00 07:00 IntakeIntake Total 460 ml 0 ml 0 ml OutputOutput Total 380 ml 300 ml 750 ml BalanceBalance 80 ml -300 ml -750 ml Exam Constitutional: alert, oriented, distress Psych: no complaints, nl mood/affect Head: normocephalic, atraumatic Eyes: nl conjunctiva, EOMI ENMT: nl external ears & nose Neck: supple, jvd (mild) Respiratory: other (fine rales throughout with coarse BS) Cardiovascular: regular rate and rhythm; No S3 Gastrointestinal: soft, nl liver, spleen Extremities: No edema Labs Result Diagram: 09/28/18 0455 09/28/18 0455 Results 24hrs Laboratory Tests Test 09/27/18 16:56 09/27/18 20:35 09/28/18 01:51 09/28/18 04:55 Bedside Glucose 147 132 170 White Blood Count 6.5 Red Blood Count 3.27 L Hemoglobin 9.1 L Hematocrit 28.6 L Mean Corpuscular 87.5 Volume Mean Corpuscular 27.8 L Hemoglobin Mean Corpuscular 31.8 L Hemoglobin Concen t Red Cell 13.3 Distribution Width Platelet Count 277 Mean Platelet 11.2 H Volume Immature 1.100 H Granulocytes % Neutrophils % 78.7 H Lymphocytes % 13.8 L Monocytes % 5.5 Eosinophils % 0.6 Basophils % 0.3 Nucleated Red 0.0 Blood Cells % Immature 0.070 H Granulocytes # Neutrophils # 5.2 Lymphocytes # 0.9 Monocytes # 0.4 Eosinophils # 0.0 Basophils # 0.0 Nucleated Red 0.0 Blood Cells # Sodium Level 146 H Potassium Level 3.7 Chloride Level 109 Carbon Dioxide 27 Level Anion Gap 10 Blood Urea 71 H Nitrogen Creatinine 1.18 H Est Glomerular Filtrat Rate mL/min Glucose Level 164 Lactic Acid Level 1.1 Calcium Level 8.8 Procalcitonin 0.36 H Test 09/28/18 05:00 09/28/18 05:31 09/28/18 10:52 09/28/18 12:48 Blood Gas Blood arterial Specimen Source Arterial Blood 09/28/2018 5:01:4 Date Drawn 8 AM Arterial Blood pH 7.446 (Temp corrected) Arterial Blood 38.3 pCO2 (Temp correct) Arterial Blood 67.9 L pO2 (Temp corrected) Arterial Blood 25.8 HCO3 Arterial Blood 1.7 Base Excess Arterial Blood 92.8 L Oxygen Saturation Nash Test ACCEPTAB Arterial Blood Right Radial Gas Puncture Site Arterial 0.4 Blood Carboxyhemo globin Arterial Blood 0.1 Methemoglobin Blood Gas A-a O2 390.0 H Differential Oxyhemoglobin 92.3 L Percent Blood Gas 37.0 Temperature Blood Gas 20.0 Respiration Rate Blood Gas Actual 20 Respiration Rate Blood Gas MASK - BIPAP Modality FiO2 70.0 Blood Gas 15/ IPAP/EPAP Ratio Blood Gas Notified Whom Blood Gas 09/28/2018 5:29:3 Notified Time 3 AM Bedside Glucose 164 139 132 Medications Medications Current Medications Atorvastatin Calcium (Lipitor) 80 mg HS PO Last administered on 09/27/18at 20:30; Admin Dose 80 MG; Start 09/23/18 at 21:00 Aspirin (Halfprin) 81 mg DAILY PO Last administered on 09/28/18at 10:22; Admin Dose 81 MG; Start 09/24/18 at 09:00 IV Flush (NS 3 ml) 3 ml PER PROTOCOL IV ; Start 09/23/18 at 13:00 Lorazepam (Ativan) 0.5 mg Q8H PRN PO .ANXIETY Last administered on 09/26/18at 13:26; Admin Dose 0.5 MG; Start 09/23/18 at 13:00 Ondansetron HCl (Zofran Inj) 4 mg Q6H PRN IV NAUSEA/VOMITING; Start 09/23/18 at 13:00 Acetaminophen (Tylenol Tab) 650 mg Q6H PRN PO .PAIN 1-3 OR TEMP Last adminis tered on 09/27/18at 06:44; Admin Dose 650 MG; Start 09/23/18 at 13:00 Zolpidem Tartrate (Ambien) 5 mg QHS PRN PO .INSOMNIA; Start 09/23/18 at 13:00 Docusate Sodium (Colace) 100 mg Q12H PRN PO .CONSTIPATION; Start 09/23/18 at 13:00 Magnesium Hydroxide (Milk Of Mag) 30 ml DAILY PRN PO .CONSTIPATION; Start 09/23/18 at 13:00 Miscellaneous Information 1 ea NOTE XX ; Start 09/23/18 at 13:30 Glucose (Glutose) 15 gm Q15M PRN PO DECREASED GLUCOSE; Start 09/23/18 at 13:30 Glucose (Glutose) 22.5 gm Q15M PRN PO DECREASED GLUCOSE; Start 09/23/18 at 13:30 Dextrose (D50w Syringe) 25 ml Q15M PRN IV DECREASED GLUCOSE; Start 09/23/18 at 13:30 Dextrose (D50w Syringe) 50 ml Q15M PRN IV DECREASED GLUCOSE; Start 09/23/18 at 13:30 Glucagon (Glucagen) 1 mg Q15M PRN IM DECREASED GLUCOSE; Start 09/23/18 at 13:30 Glucose (Glutose) 15 gm Q15M PRN BUCCAL DECREASED GLUCOSE; Start 09/23/18 at 13:30 Insulin Aspart (Novolog Insulin Pen) NOVOLOG *MODERATE* ALGORI... Q4 SC Last administered on 09/28/18 10:58; Admin Dose 2 UNIT; Start 09/23/18 at 17:00 Aztreonam 2 gm/ Sodium Chloride 100 ml @ 100 mls/hr Q12 IVPB Last administered on 09/28/18 10:38; Admin Dose 100 MLS/HR; Start 09/24/18 at 21:00 Levofloxacin/ Dextrose 100 ml @ 100 mls/hr Q48H IVPB Last administered on 09/28/18 10:24; Admin Dose 100 MLS/HR; Start 09/24/18 at 09:30 Famotidine (Pepcid Iv) 20 mg DAILY IV Last administered on 09/28/18 11:01; Admin Dose 20 MG; Start 09/25/18 at 09:00 Ferric Sodium Gluconate Complex 125 mg/Sodium Chloride 110 ml @ 110 mls/hr DAILY@1300 IVPB Last administered on 09/27/18 12:41; Admin Dose 110 MLS/HR; Start 09/25/18 at 13:00; Stop 09/29/18 at 13:59 Enoxaparin Sodium (Lovenox) 75 mg Q24H SC Last administered on 09/27/18 12:45; Admin Dose 75 MG; Start 09/26/18 at 13:00 Lidocaine (Lidoderm) 1 patch DAILY TD Last administered on 09/28/18 10:25; Admin Dose 1 PATCH; Start 09/26/18 at 12:00 Vancomycin HCl (Vanco Iv Per Pharmacy) VANCOMYCIN PER PHARMACY PER PROTOCOL XX ; Start 09/26/18 at 09:30 Vancomycin/Sodium Chloride 250 ml @ 125 mls/hr Q24H IVPB Last administered on 09/27/18 11:32; Admin Dose 125 MLS/HR; Start 09/27/18 at 11:00 Lorazepam (Ativan) 0.5 mg Q4H PRN IV ANXIETY Last administered on 09/28/18 02:27; Admin Dose 0.5 MG; Start 09/26/18 at 19:30 Metoprolol Tartrate (Lopressor) 50 mg BID PO Last administered on 09/28/18at 10:23; Admin Dose 50 MG; Start 09/27/18 at 21:00 Felodipine (Plendil) 2.5 mg DAILY PO ; Start 09/29/18 at 09:00 Furosemide (Lasix) 40 mg BID DIURETICS IV ; Start 09/28/18 at 12:30 NAINA MANN MD Sep 28, 2018 13:03
[2018-09-28] MEDS: VANCOMYCIN 750 MG (PMX) 250 ML IVPB SCH (14:21)
[2018-09-28] MEDS: FUROSEMIDE 40 MG INJ IV SCH ×2 (14:24→20:21)
[2018-09-28] MEDS: SOD FERRIC GLUC COMPLX 125 MG in SOD CHLORIDE 0.9% 100 ML IVPB SCH (14:27)
[2018-09-28] MEDS: ENOXAPARIN 80 MG/0.8 ML SYG SC SCH (14:27)
[2018-09-28] MEDS: ATORVASTATIN 80 MG TAB PO SCH (20:21)
[2018-09-29] VITALS (47 sets, daily range): BP systolic 111–144; BP diastolic 49–111; PULSE 64–153; RESP 16–40
[2018-09-29] MEDS: INSULIN ASPART [NOVOLOG] 3 ML PEN SC SCH ×6 (01:18→20:24)
[2018-09-29] MEDS: FUROSEMIDE 40 MG INJ IV SCH (05:40)
[2018-09-29] MEDS ORDERED: DIGOXIN 500 MCG INJ IV ONE (07:30)
[2018-09-29] MEDS: METOPROLOL 50 MG TAB PO SCH ×2 (07:42→20:22)
[2018-09-29] MEDS: ASPIRIN (EC) 81 MG TAB PO SCH (07:42)
--- NOTE | 2018-09-29 08:51 | PN ---
Date/Time of Note Date/Time of Note DATE: 09/29/18 TIME: 08:36 Assessment/Plan VTE Prophylaxis Risk score (from [facility] [place])>0 risk: 9 SCD applied (from [facility] [place]): Yes Pharmacological prophylaxis: LMWH Pharm contraindication: other Lines/Catheters IV Catheter Type (from [facility]): Peripheral IV Urinary Cath still in place: Yes Reason Cath still needed: urinary retention Assessment/Plan Hospital Course 1. Congestive heart failure /pneumonia. She seems improved; however, her chest x-ray continues to show bilateral interstitial infiltrates. She is receiving broad-spectrum antibiotics for pneumonia as she has an elevated pro calcitonin level . She is getting regular diuretics as she is also in congestive heart failure. 2. Renal failure. Her renal function is improved. She has been in negative fluid balance the last 3 days after receiving Lasix IV twice daily which she will continue to get. 3. Respiratory failure . She is now off BiPAP and on high flow oxygen. 4. Elevated troponin levels being seen by cardiology 5. History of hypertension 6. Type 2 diabetes mellitus being controlled. 7. Iron deficiency anemia. Patient to start a course of Ferrlicit, IV iron replacement. 8. Atrial fibrillation with rapid ventricular rate. Cardiology is treating her with medication for this. Her heart rate this morning is coming under control. Result Diagram: 09/29/18 0512 09/29/18 0512 Results 24hrs Laboratory Tests Test 09/28/18 10:52 09/28/18 12:48 09/28/18 17:33 09/28/18 20:35 Bedside Glucose 139 132 218 190 Test 09/29/18 01:02 09/29/18 05:00 09/29/18 05:04 09/29/18 05:12 Bedside Glucose 193 182 Blood Gas Blood arterial Specimen Source Arterial Blood 09/29/2018 4:48:0 Date Drawn 3 AM Arterial Blood pH 7.489 H (Temp corrected) Arterial Blood 34.7 L pCO2 (Temp correct) Arterial Blood 60.4 L pO2 (Temp corrected) Arterial Blood 25.8 HCO3 Arterial Blood 2.5 Base Excess Arterial Blood 92.5 L Oxygen Saturation Nash Test ACCEPTAB Arterial Blood Right Radial Gas Puncture Site Arterial 0.1 Blood Carboxyhemo globin Arterial Blood 0.3 Methemoglobin Blood Gas A-a O2 617.9 H Differential Oxyhemoglobin 92.1 L Percent Blood Gas 37.0 Temperature Blood Gas HFNC Modality FiO2 100.0 Blood Gas LW Notified Whom Blood Gas 09/29/2018 4:59:1 Notified Time 5 AM White Blood Count 7.7 Red Blood Count 3.90 L Hemoglobin 10.9 L Hematocrit 34.7 #L Mean Corpuscular 89.0 Volume Mean Corpuscular 27.9 L Hemoglobin Mean Corpuscular 31.4 L Hemoglobin Concen t Red Cell 13.3 Distribution Width Platelet Count 343 # Mean Platelet 11.5 H Volume Immature 1.600 H Granulocytes % Neutrophils % 75.7 Lymphocytes % 14.8 L Monocytes % 5.6 Eosinophils % 1.8 Basophils % 0.5 Nucleated Red 0.0 Blood Cells % Immature 0.120 H Granulocytes # Neutrophils # 5.9 Lymphocytes # 1.1 Monocytes # 0.4 Eosinophils # 0.1 Basophils # 0.0 Nucleated Red 0.0 Blood Cells # Sodium Level 146 H Potassium Level 3.6 Chloride Level 109 Carbon Dioxide 28 Level Anion Gap 9 Blood Urea 59 H Nitrogen Creatinine 1.03 H Est Glomerular Filtrat Rate mL/min Glucose Level 180 Calcium Level 8.9 Subjective 24 Hr Interval Summary Free Text/Dictation This patient is being seen in the intensive care unit. She is awake and alert. Her niece is in the room with her. The patient is on high flow oxygen and mask and oxygen saturation is 91 to 92%. She has been in atrial fibrillation with RVR. Respiratory: shortness of breath Cardiovascular: no complaints Gastrointestinal: no complaints Genitourinary: no complaints Musculoskeletal: no complaints Exam/Review of Systems Exam Vitals Vital Signs Date Temp Pulse Resp B/P (MAP) Pulse Ox O2 O2 Flow FiO2 Time Delivery Rate 09/29/18 152 06:31 09/29/18 17 91 06:30 09/29/18 140/53 06:00 (82) 09/29/18 97.7 04:00 09/29/18 100 03:00 09/28/18 High Flow 09:00 09/26/18 15.0 06:17 Intake and Output 09/28/18 09/28/18 09/29/18 1515:00 23:00 07:00 IntakeIntake Total 180 ml 540 ml 500 ml OutputOutput Total 920 ml 1000 ml 620 ml BalanceBalance -740 ml -460 ml -120 ml Constitutional: alert, oriented Respiratory: crackles/rales, wheezing Cardiovascular: irregular rhythm Gastrointestinal: soft, non-tender Musculoskeletal: nl extremities to inspection Results Results 24hrs Laboratory Tests Test 09/28/18 10:52 09/28/18 12:48 09/28/18 17:33 09/28/18 20:35 Bedside Glucose 139 132 218 190 Test 09/29/18 01:02 09/29/18 05:00 09/29/18 05:04 09/29/18 05:12 Bedside Glucose 193 182 Blood Gas Blood arterial Specimen Source Arterial Blood 09/29/2018 4:48:0 Date Drawn 3 AM Arterial Blood pH 7.489 H (Temp corrected) Arterial Blood 34.7 L pCO2 (Temp correct) Arterial Blood 60.4 L pO2 (Temp corrected) Arterial Blood 25.8 HCO3 Arterial Blood 2.5 Base Excess Arterial Blood 92.5 L Oxygen Saturation Nash Test ACCEPTAB Arterial Blood Right Radial Gas Puncture Site Arterial 0.1 Blood Carboxyhemo globin Arterial Blood 0.3 Methemoglobin Blood Gas A-a O2 617.9 H Differential Oxyhemoglobin 92.1 L Percent Blood Gas 37.0 Temperature Blood Gas HFNC Modality FiO2 100.0 Blood Gas LW Notified Whom Blood Gas 09/29/2018 4:59:1 Notified Time 5 AM White Blood Count 7.7 Red Blood Count 3.90 L Hemoglobin 10.9 L Hematocrit 34.7 #L Mean Corpuscular 89.0 Volume Mean Corpuscular 27.9 L Hemoglobin Mean Corpuscular 31.4 L Hemoglobin Concen t Red Cell 13.3 Distribution Width Platelet Count 343 # Mean Platelet 11.5 H Volume Immature 1.600 H Granulocytes % Neutrophils % 75.7 Lymphocytes % 14.8 L Monocytes % 5.6 Eosinophils % 1.8 Basophils % 0.5 Nucleated Red 0.0 Blood Cells % Immature 0.120 H Granulocytes # Neutrophils # 5.9 Lymphocytes # 1.1 Monocytes # 0.4 Eosinophils # 0.1 Basophils # 0.0 Nucleated Red 0.0 Blood Cells # Sodium Level 146 H Potassium Level 3.6 Chloride Level 109 Carbon Dioxide 28 Level Anion Gap 9 Blood Urea 59 H Nitrogen Creatinine 1.03 H Est Glomerular Filtrat Rate mL/min Glucose Level 180 Calcium Level 8.9 Medications Medication Current Medications Atorvastatin Calcium (Lipitor) 80 mg HS PO Last administered on 09/28/18at 20:21; Admin Dose 80 MG; Start 09/23/18 at 21:00 Aspirin (Halfprin) 81 mg DAILY PO Last administered on 09/29/18at 07:42; Admin Dose 81 MG; Start 09/24/18 at 09:00 IV Flush (NS 3 ml) 3 ml PER PROTOCOL IV ; Start 09/23/18 at 13:00 Lorazepam (Ativan) 0.5 mg Q8H PRN PO .ANXIETY Last administered on 09/26/18at 13:26; Admin Dose 0.5 MG; Start 09/23/18 at 13:00 Ondansetron HCl (Zofran Inj) 4 mg Q6H PRN IV NAUSEA/VOMITING; Start 09/23/18 at 13:00 Acetaminophen (Tylenol Tab) 650 mg Q6H PRN PO .PAIN 1-3 OR TEMP Last administered on 09/27/18at 06:44; Admin Dose 650 MG; Start 09/23/18 at 13:00 Zolpidem Tartrate (Ambien) 5 mg QHS PRN PO .INSOMNIA; Start 09/23/18 at 13:00 Docusate Sodium (Colace) 100 mg Q12H PRN PO .CONSTIPATION; Start 09/23/18 at 13:00 Magnesium Hydroxide (Milk Of Mag) 30 ml DAILY PRN PO .CONSTIPATION; Start 09/23/18 at 13:00 Miscellaneous Information 1 ea NOTE XX ; Start 09/23/18 at 13:30 Glucose (Glutose) 15 gm Q15M PRN PO DECREASED GLUCOSE; Start 09/23/18 at 13:30 Glucose (Glutose) 22.5 gm Q15M PRN PO DECREASED GLUCOSE; Start 09/23/18 at 13:30 Dextrose (D50w Syringe) 25 ml Q15M PRN IV DECREASED GLUCOSE; Start 09/23/18 at 13:30 Dextrose (D50w Syringe) 50 ml Q15M PRN IV DECREASED GLUCOSE; Start 09/23/18 at 13:30 Glucagon (Glucagen) 1 mg Q15M PRN IM DECREASED GLUCOSE; Start 09/23/18 at 13:30 Glucose (Glutose) 15 gm Q15M PRN BUCCAL DECREASED GLUCOSE; Start 09/23/18 at 13:30 Insulin Aspart (Novolog Insulin Pen) NOVOLOG *MODERATE* ALGORI... Q4 SC Last administered on 09/29/18at 06:54; Admin Dose 4 UNIT; Start 09/23/18 at 17:00 Levofloxacin/ Dextrose 100 ml @ 100 mls/hr Q48H IVPB Last administered on 10:24; Admin Dose 100 MLS/HR; Start 09/24/18 at 09:30 Famotidine (Pepcid Iv) 20 mg DAILY IV Last administered on 09/28/18 11:01; Admin Dose 20 MG; Start 09/25/18 at 09:00 Ferric Sodium Gluconate Complex 125 mg/Sodium Chloride 110 ml @ 110 mls/hr DAILY@1300 IVPB Last administered on 09/28/18 14:27; Admin Dose 110 MLS/HR; Start 09/25/18 at 13:00; Stop 09/29/18 at 13:59 Enoxaparin Sodium (Lovenox) 75 mg Q24H SC Last administered on 09/28/18 14:27; Admin Dose 75 MG; Start 09/26/18 at 13:00 Lidocaine (Lidoderm) 1 patch DAILY TD Last administered on 09/28/18 10:25; Admin Dose 1 PATCH; Start 09/26/18 at 12:00 Vancomycin HCl (Vanco Iv Per Pharmacy) VANCOMYCIN PER PHARMACY PER PROTOCOL XX ; Start 09/26/18 at 09:30 Vancomycin/Sodium Chloride 250 ml @ 125 mls/hr Q24H IVPB Last administered on 09/28/18 14:21; Admin Dose 125 MLS/HR; Start 09/27/18 at 11:00 Lorazepam (Ativan) 0.5 mg Q4H PRN IV ANXIETY Last administered on 09/28/18 02:27; Admin Dose 0.5 MG; Start 09/26/18 at 19:30 Metoprolol Tartrate (Lopressor) 50 mg BID PO Last administered on 09/29/18 07:42; Admin Dose 50 MG; Start 09/27/18 at 21:00 Felodipine (Plendil) 2.5 mg DAILY PO ; Start 09/29/18 at 09:00 Furosemide (Lasix) 40 mg BID DIURETICS IV Last administered on 09/29/18 05:40; Admin Dose 40 MG; Start 09/28/18 at 12:30 Miscellaneous Information (*Rx Drug Level Order Reminder*) VANCOMYCIN TROUGH 6/ 17 AT 1000 1000 ONCE XX ; Start 09/29/18 at 10:00; Stop 09/29/18 at 10:01 Aztreonam 2 gm/ Sodium Chloride 100 ml @ 100 mls/hr Q12 IVPB Last administered on 09/28/18at 21:30; Admin Dose 100 MLS/HR; Start 09/28/18 at 21:00 Potassium Chloride (Klor-Con 10) 30 meq ONCE ONCE PO ; Start 09/29/18 at 08:30; Stop 09/29/18 at 08:31; Status UNGENARO LOZANO MD Sep 29, 2018 08:50
[2018-09-29] MEDS: AZTREONAM 2 GM in SOD CHLORIDE 0.9% 100 ML IVPB SCH ×2 (09:08→20:52)
[2018-09-29] MEDS: LIDOCAINE 5% PATCH TD SCH (09:11)
--- NOTE | 2018-09-29 09:13 | CONS ---
Assessment/Plan Assessment/Plan Assessment/Plan (Daily) Chest x-ray from today showing diffuse bilateral pneumonia. Assessment and recommendations; 1. Patient admitted with severe bilateral pneumonia without any interval improvement despite adequate antimicrobial regimen. 2. NSTEMI. 3. Diastolic dysfunction. 4. CHF. 5. Diabetes. Continue current supportive care. Patient is adamant in not getting intubated unless and until that is an acute medical emergency. Will obtain follow-up chest x-ray 24 hours. Prognosis is guarded. The patient likely will require intubation in the near term. Consultation Date/Type/Reason Admit Date/Time Sep 23, 2018 at 07:08 Initial Consult Date 09/25/18 Type of Consult Pulmonary/critical care Patient is an 88-year-old lady who was brought into the emergency room yesterday with a 2-day history of increasing shortness of breath and chest pressure. Upon evaluation patient had mild elevation of troponins as well as elevation in BNP level. Chest x-ray showed pulmonary edema, patient has been transferred to ICU and started on BiPAP. Patient also has been on Bumex drip with adequate urine output. Patient reports very little improvement in symptoms of shortness of breath since yesterday. Denies any further chest pain, complains of scant cough with production of clear sputum. Denies any fever chills any body aches or myalgias. According to her she was fine until 2 days ago when the symptoms started. Past medical history; 1. History of hypertension and diabetes. Medications; reviewed. Allergies; penicillin. Social history; patient never smoked. Family history; she is a . Occupational history; noncontributory. Review of systems; complains of cough with mild shortness of breath. Denies any abdominal pain, nausea vomiting. Any fever chills. Patient is on BiPAP therefore a limited review of systems could be obtained. General exam; elderly lady, on BiPAP. Awake and alert. Currently no distress. Date/Time of Note DATE: 09/29/18 TIME: 09:11 24 HR Interval Summary Free Text/Dictation Patient's condition is tenuous at best. On 100% FiO2 via high flow nasal cannula. Patient does appear tachypneic. But herself denies shortness of breath at rest. General exam; elderly woman, awake and alert. Currently in no distress. Tachypneic. Exam/Review of Systems Exam Vitals Vital Signs Date Temp Pulse Resp B/P (MAP) Pulse Ox O2 O2 Flow FiO2 Time Delivery Rate 09/29/18 90 100 08:10 09/29/18 120 08:00 09/29/18 17 06:30 09/29/18 140/53 06:00 (82) 09/29/18 97.7 04:00 09/28/18 High Flow 09:00 09/26/18 15.0 06:17 Intake and Output 09/28/18 09/28/18 09/29/18 1515:00 23:00 07:00 IntakeIntake Total 180 ml 540 ml 500 ml OutputOutput Total 920 ml 1000 ml 620 ml BalanceBalance -740 ml -460 ml -120 ml Exam HE ENT exam; supple neck, no JVD. No lymphadenopathy. Midline trachea. No thyromegaly. Patient has fair dentition. No neck masses. On high flow nasal cannula. Chest exam; bilateral crackles more pronounced in right lung. S1-S2 audible, no murmurs. Regular rhythm. Abdomen exam; soft, scaphoid. Nontender. No organomegaly. Bowel sounds are audible. Extremity exam; no peripheral edema. [employer] exam; no focal deficit. Results Result Diagram: 09/29/18 0512 09/29/18 0512 Results 24hrs Laboratory Tests Test 09/28/18 10:52 09/28/18 12:48 09/28/18 17:33 09/28/18 20:35 Bedside Glucose 139 132 218 190 Test 09/29/18 01:02 09/29/18 05:00 09/29/18 05:04 09/29/18 05:12 Bedside Glucose 193 182 Blood Gas Blood arterial Specimen Source Arterial Blood 09/29/2018 4:48: Date Drawn 03 AM Arterial Blood 7.489 H pH (Temp corrected) Arterial Blood 34.7 L pCO2 (Temp correct) Arterial Blood 60.4 L pO2 (Temp corrected) Arterial Blood 25.8 HCO3 Arterial Blood 2.5 Base Excess Arterial Blood 92.5 L Oxygen Saturatio n Nash Test ACCEPTAB Arterial Blood Right Radial Gas Puncture Site Arterial 0.1 Blood Carboxyhem oglobin Arterial Blood 0.3 Methemoglobin Blood Gas A-a O2 617.9 H Differential Oxyhemoglobin 92.1 L Percent Blood Gas 37.0 Temperature Blood Gas HFNC Modality FiO2 100.0 Blood Gas LW Notified Whom Blood Gas 09/29/2018 4:59: Notified Time 15 AM White Blood 7.7 Count Red Blood Count 3.90 L Hemoglobin 10.9 L Hematocrit 34.7 #L Mean Corpuscular 89.0 Volume Mean Corpuscular 27.9 L Hemoglobin Mean Corpuscular 31.4 L Hemoglobin Pili nt Red Cell 13.3 Distribution Width Platelet Count 343 # Mean Platelet 11.5 H Volume Immature 1.600 H Granulocytes % Neutrophils % 75.7 Lymphocytes % 14.8 L Monocytes % 5.6 Eosinophils % 1.8 Basophils % 0.5 Nucleated Red 0.0 Blood Cells % Immature 0.120 H Granulocytes # Neutrophils # 5.9 Lymphocytes # 1.1 Monocytes # 0.4 Eosinophils # 0.1 Basophils # 0.0 Nucleated Red 0.0 Blood Cells # Sodium Level 146 H Potassium Level 3.6 Chloride Level 109 Carbon Dioxide 28 Level Anion Gap 9 Blood Urea 59 H Nitrogen Creatinine 1.03 H Est Glomerular Filtrat Rate mL/min Glucose Level 180 Calcium Level 8.9 Test 09/29/18 08:58 Lab Scanned REFERENCE LAB Report Medications Medication Current Medications Atorvastatin Calcium (Lipitor) 80 mg HS PO Last administered on 09/28/18at 20:21; Admin Dose 80 MG; Start 09/23/18 at 21:00 Aspirin (Halfprin) 81 mg DAILY PO Last administered on 09/29/18at 07:42; Admin Dose 81 MG; Start 09/24/18 at 09:00 IV Flush (NS 3 ml) 3 ml PER PROTOCOL IV ; Start 09/23/18 at 13:00 Lorazepam (Ativan) 0.5 mg Q8H PRN PO .ANXIETY Last administered on 09/26/18at 13:26; Admin Dose 0.5 MG; Start 09/23/18 at 13:00 Ondansetron HCl (Zofran Inj) 4 mg Q6H PRN IV NAUSEA/VOMITING; Start 09/23/18 at 13:00 Acetaminophen (Tylenol Tab) 650 mg Q6H PRN PO .PAIN 1-3 OR TEMP Last administered on 09/27/18at 06:44; Admin Dose 650 MG; Start 09/23/18 at 13:00 Zolpidem Tartrate (Ambien) 5 mg QHS PRN PO .INSOMNIA; Start 09/23/18 at 13:00 Docusate Sodium (Colace) 100 mg Q12H PRN PO .CONSTIPATION; Start 09/23/18 at 13:00 Magnesium Hydroxide (Milk Of Mag) 30 ml DAILY PRN PO .CONSTIPATION; Start 09/23/18 at 13:00 Miscellaneous Information 1 ea NOTE XX ; Start 09/23/18 at 13:30 Glucose (Glutose) 15 gm Q15M PRN PO DECREASED GLUCOSE; Start 09/23/18 at 13:30 Glucose (Glutose) 22.5 gm Q15M PRN PO DECREASED GLUCOSE; Start 09/23/18 at 13:30 Dextrose (D50w Syringe) 25 ml Q15M PRN IV DECREASED GLUCOSE; Start 09/23/18 at 13:30 Dextrose (D50w Syringe) 50 ml Q15M PRN IV DECREASED GLUCOSE; Start 09/23/18 at 13:30 Glucagon (Glucagen) 1 mg Q15M PRN IM DECREASED GLUCOSE; Start 09/23/18 at 13:30 Glucose (Glutose) 15 gm Q15M PRN BUCCAL DECREASED GLUCOSE; Start 09/23/18 at 13:30 Insulin Aspart (Novolog Insulin Pen) NOVOLOG *MODERATE* ALGORI... Q4 SC Last administered on 09/29/18at 06:54; Admin Dose 4 UNIT; Start 09/23/18 at 17:00 Levofloxacin/ Dextrose 100 ml @ 100 mls/hr Q48H IVPB Last administered on 09/28at 10:24; Admin Dose 100 MLS/HR; Start 09/24/18 at 09:30 Famotidine (Pepcid Iv) 20 mg DAILY IV Last administered on 09/28/18at 11:01; Admin Dose 20 MG; Start 09/25/18 at 09:00 Ferric Sodium Gluconate Complex 125 mg/Sodium Chloride 110 ml @ 110 mls/hr DAILY@1300 IVPB Last administered on 09/28/18at 14:27; Admin Dose 110 MLS/HR; Start 09/25/18 at 13:00; Stop 09/29/18 at 13:59 Enoxaparin Sodium (Lovenox) 75 mg Q24H SC Last administered on 09/28/18at 14:27; Admin Dose 75 MG; Start 09/26/18 at 13:00 Lidocaine (Lidoderm) 1 patch DAILY TD Last administered on 09/28/18at 10:25; Admin Dose 1 PATCH; Start 09/26/18 at 12:00 Vancomycin HCl (Vanco Iv Per Pharmacy) VANCOMYCIN PER PHARMACY PER PROTOCOL XX ; Start 09/26/18 at 09:30 Vancomycin/Sodium Chloride 250 ml @ 125 mls/hr Q24H IVPB Last administered on 09/28/18at 14:21; Admin Dose 125 MLS/HR; Start 09/27/18 at 11:00 Lorazepam (Ativan) 0.5 mg Q4H PRN IV ANXIETY Last administered on 09/28/18at 02:27; Admin Dose 0.5 MG; Start 09/26/18 at 19:30 Metoprolol Tartrate (Lopressor) 50 mg BID PO Last administered on 09/29/18at 07:42; Admin Dose 50 MG; Start 09/27/18 at 21:00 Felodipine (Plendil) 2.5 mg DAILY PO ; Start 09/29/18 at 09:00 Furosemide (Lasix) 40 mg BID DIURETICS IV Last administered on 09/29/18at 05:40; Admin Dose 40 MG; Start 09/28/18 at 12:30 Miscellaneous Information (*Rx Drug Level Order Reminder*) VANCOMYCIN TROUGH AT 1000 1000 ONCE XX ; Start 09/29/18 at 10:00; Stop 09/29/18 at 10:01 Aztreonam 2 gm/ Sodium Chloride 100 ml @ 100 mls/hr Q12 IVPB Last administered on 09/29/18at 09:08; Admin Dose 100 MLS/HR; Start 09/28/18 at 21:00 Potassium Chloride (Klor-Con 10) 30 meq ONCE ONCE PO ; Start 09/29/18 at 09:30; Stop 09/29/18 at 09:31 DONNA GENTILE 17, 2019 09:13
[2018-09-29] MEDS: FAMOTIDINE 20 MG INJ IV SCH (09:19)
[2018-09-29] MEDS ORDERED: POTASSIUM CHLORIDE (SR) 10 MEQ TAB PO ONE (09:30)
--- NOTE | 2018-09-29 10:15 | PN ---
Date/Time of Note Date/Time of Note DATE: 09/29/18 TIME: 10:10 SUBJECTIVE: Patient feeling better still on high flow oxygen is bringing up productive sputum. Chart, medications and laboratory studies reviewed. Refuses intubation despite recommendations from pulmonary. Review of systems Not obtainable reliably with patient on BiPAP. OBJECTIVE: Vital signs please see chart. HEENT; no JVD, no HJR, carotids 2 over 4+ without bruits. Patient with BiPAP on. Chest: Difficult exam no wheezes or rhonchi. Cardiac: S4, S1, S2 with normal physiologic splitting, 2/6 early to mid peaking systolic ejection murmur, no rub click or diastolic murmur noted. Abdominal: Bowel sounds positive, soft nontender, no abdominal bruit noted, no hepatosplenomegaly. Extremities: No cyanosis, clubbing, or edema. Negative Homans sign or palpable cords. Pulses: 2/4 pulses diffusely no bruits noted. LABORATORY STUDIES; Anemia hemoglobin 10.9, hematocrit 34.7, white count 7.7, platelets 343,000, ABG 7.49/35/60 on 100%, electrolytes normal bun 59 creatinine 1.03, BNP over 3000 on 27 September, procalcitonin elevated yesterday. Chest x-ray worsening infiltrates mild cardiomegaly calcified aortic knob. Telemetry transient rapid atrial fibrillation this morning treated with 1 dose of digoxin and early medication of metoprolol. ASSESSMENT: 1. Multi lobar probable right lung pneumonia possible ARDS. 2. Non-ST elevation myocardial infarction. 3. Hypertension. 4. Type 2 diabetes. 5. Mild to moderate aortic stenosis. 6. Acute diastolic heart failure. 7. Gout. 8. Normocytic anemia. 9. Hyperlipidemia. 10. Acute respiratory failure probably multifactorial secondary to pneumonia and concomitant heart failure. 11. History of breast cancer. 12. Renal insufficiency. At this time patient with probable multi lobar pneumonia as well as ARDS with po ssible component of mild acute diastolic heart failure. It is not improving with diuresis infiltrates are worsening consistent with ARDS and underlying acute pneumonitis. Discussed with pulmonary who feels intubation would be optimal with patient resting for several days on a ventilator but she refuses. From a cardiac standpoint little more that we could do we will continue to d iurese carefully continue aspirin, Lovenox, metoprolol, statin, felodipine. PLAN: 1. Continue diuresis, felodipine, metoprolol, Lovenox, Lasix IV, Pepcid IV, aspirin and statin. 2. Patient refuses elective intubation to rest patient on ventilator for several days discussed with pulmonary. 3. Little more to do from a cardiac standpoint continue antibiotics, pulmonary support. Discussed case with pulmonary extensively. ANTONIETA KEE MD Sep 29, 2018 10:15
[2018-09-29] MEDS: FELODIPINE (ER) 2.5 MG TAB PO SCH (11:48)
[2018-09-29] MEDS: VANCOMYCIN 750 MG (PMX) 250 ML IVPB SCH (11:49)
[2018-09-29] MEDS: ENOXAPARIN 80 MG/0.8 ML SYG SC SCH (13:00)
[2018-09-29] MEDS: SOD FERRIC GLUC COMPLX 125 MG in SOD CHLORIDE 0.9% 100 ML IVPB SCH (13:56)
[2018-09-29] MEDS: ATORVASTATIN 80 MG TAB PO SCH (20:22)
[2018-09-29] MEDS: LORAZEPAM 2 MG INJ IV PRN (23:01)
[2018-09-29] MEDS: ACETAMINOPHEN 325 MG TAB PO PRN (23:01)
[2018-09-30] VITALS (33 sets, daily range): BP systolic 89–165; BP diastolic 45–102; PULSE 63–106; RESP 14–29
[2018-09-30] MEDS: INSULIN ASPART [NOVOLOG] 3 ML PEN SC SCH ×6 (01:00→21:01)
[2018-09-30] MEDS: VANCOMYCIN HCL 1.25 GM in SOD CHLORIDE 0.9% 250 ML IVPB SCH (05:15)
[2018-09-30] MEDS: FAMOTIDINE 20 MG TAB PO SCH (08:17)
[2018-09-30] MEDS: ASPIRIN (EC) 81 MG TAB PO SCH (08:17)
[2018-09-30] MEDS: FELODIPINE (ER) 2.5 MG TAB PO SCH (08:17)
[2018-09-30] MEDS: METOPROLOL 50 MG TAB PO SCH ×2 (08:18→20:52)
--- NOTE | 2018-09-30 08:37 | PN ---
Date/Time of Note Date/Time of Note DATE: 09/30/18 TIME: 08:30 Assessment/Plan VTE Prophylaxis Risk score (from [facility] [place]0 risk: 10 SCD applied (from [facility] [place]): Yes Pharmacological prophylaxis: LMWH Pharm contraindication: other Lines/Catheters IV Catheter Type (from [facility]): Saline Lock Urinary Cath still in place: Yes Reason Cath still needed: urinary retention Assessment/Plan Hospital Course 1. Congestive heart failure /pneumonia. She is improved clinically. She is receiving broad-spectrum antibiotics for pneumonia as she has an elevated pro calcitonin level . She is getting regular diuretics as she is also in congestive heart failure. Chest x-ray is pending for this morning. 2. Renal failure. Her renal function is improved. She has been in negative fluid balance the last 4 days after receiving Lasix IV twice daily which she will continue to get. 3. Respiratory failure . She is now off BiPAP and on high flow oxygen. 4. Elevated troponin levels being seen by cardiology 5. History of hypertension 6. Type 2 diabetes mellitus being controlled. 7. Iron deficiency anemia. Patient to start a course of Ferrlicit, IV iron re placement. 8. Atrial fibrillation, she has now converted to sinus rhythm.. Result Diagram: 09/30/18 0543 09/30/18 0543 Results 24hrs Laboratory Tests Test 09/29/18 08:58 09/29/18 09:18 09/29/18 09:37 09/29/18 12:48 Lab Scanned Report REFERENCE LAB Bedside Glucose 163 185 Vancomycin Level 8.4 L Trough Test 09/29/18 17:40 09/29/18 20:11 09/30/18 01:06 09/30/18 05:11 Bedside Glucose 200 233 H 135 177 Test 09/30/18 05:43 09/30/18 08:09 White Blood Count 8.0 Red Blood Count 3.73 L Hemoglobin 10.4 L Hematocrit 33.7 L Mean Corpuscular 90.3 Volume Mean Corpuscular 27.9 L Hemoglobin Mean Corpuscular 30.9 L Hemoglobin Concent Red Cell 13.3 Distribution Width Platelet Count 326 Mean Platelet 11.0 H Volume Immature 1.500 H Granulocytes % Neutrophils % 76.8 Lymphocytes % 13.6 L Monocytes % 6.0 Eosinophils % 1.7 Basophils % 0.4 Nucleated Red 0.0 Blood Cells % Immature 0.120 H Granulocytes # Neutrophils # 6.2 Lymphocytes # 1.1 Monocytes # 0.5 Eosinophils # 0.1 Basophils # 0.0 Nucleated Red 0.0 Blood Cells # Sodium Level 144 Potassium Level 4.0 Chloride Level 110 Carbon Dioxide 28 Level Anion Gap 6 Blood Urea 49 H Nitrogen Creatinine 0.92 Est Glomerular Filtrat Rate mL/min Glucose Level 183 Calcium Level 9.2 Phosphorus Level 3.6 Magnesium Level 2.4 Total Bilirubin 0.4 Direct Bilirubin 0.00 Indirect Bilirubin 0.4 Aspartate Amino 31 Transf (AST/SGOT) Alanine 33 Aminotransferase ( ALT/SGPT) Alkaline 79 Phosphatase B-Type Natriuretic 3380 H Peptide Total Protein 6.2 Albumin 3.2 L Globulin 3.00 Albumin/Globulin 1.06 Ratio Procalcitonin 0.18 H Bedside Glucose 160 Subjective 24 Hr Interval Summary Free Text/Dictation This patient is being seen in the intensive care unit. She is awake and alert. She is on a high flow nasal cannula and is eating breakfast. She does have a cough. ENT: no complaints Respiratory: cough, shortness of breath Cardiovascular: no complaints Gastrointestinal: no complaints Genitourinary: no complaints Musculoskeletal: no complaints Skin: no complaints Exam/Review of Systems Exam Vitals Vital Signs Date Temp Pulse Resp B/P (MAP) Pulse Ox O2 O2 Flow FiO2 Time Delivery Rate 09/30/18 92 99 100 06:01 09/30/18 23 155/85 06:00 (108) 09/30/18 98.0 04:00 09/30/18 15.0 02:20 09/29/18 Nasal 20:00 Cannula Intake and Output 09/29/18 09/29/18 09/30/18 1515:00 23:00 07:00 IntakeIntake Total 660 ml 400 ml 200 ml OutputOutput Total 685 ml 555 ml 550 ml BalanceBalance -25 ml -155 ml -350 ml Constitutional: alert, oriented, frail Respiratory: congested cough, crackles/rales, diminished breath sounds, wheezing Cardiovascular: regular rate and rhythm Gastrointestinal: soft, non-tender Musculoskeletal: nl extremities to inspection Results Results 24hrs Laboratory Tests Test 09/29/18 08:58 09/29/18 09:18 09/29/18 09:37 09/29/18 12:48 Lab Scanned Report REFERENCE LAB Bedside Glucose 163 185 Vancomycin Level 8.4 L Trough Test 09/29/18 17:40 09/29/18 20:11 09/30/18 01:06 09/30/18 05:11 Bedside Glucose 200 233 H 135 177 Test 09/30/18 05:43 09/30/18 08:09 White Blood Count 8.0 Red Blood Count 3.73 L Hemoglobin 10.4 L Hematocrit 33.7 L Mean Corpuscular 90.3 Volume Mean Corpuscular 27.9 L Hemoglobin Mean Corpuscular 30.9 L Hemoglobin Concent Red Cell 13.3 Distribution Width Platelet Count 326 Mean Platelet 11.0 H Volume Immature 1.500 H Granulocytes % Neutrophils % 76.8 Lymphocytes % 13.6 L Monocytes % 6.0 Eosinophils % 1.7 Basophils % 0.4 Nucleated Red 0.0 Blood Cells % Immature 0.120 H Granulocytes # Neutrophils # 6.2 Lymphocytes # 1.1 Monocytes # 0.5 Eosinophils # 0.1 Basophils # 0.0 Nucleated Red 0.0 Blood Cells # Sodium Level 144 Potassium Level 4.0 Chloride Level 110 Carbon Dioxide 28 Level Anion Gap 6 Blood Urea 49 H Nitrogen Creatinine 0.92 Est Glomerular Filtrat Rate mL/min Glucose Level 183 Calcium Level 9.2 Phosphorus Level 3.6 Magnesium Level 2.4 Total Bilirubin 0.4 Direct Bilirubin 0.00 Indirect Bilirubin 0.4 Aspartate Amino 31 Transf (AST/SGOT) Alanine 33 Aminotransferase ( ALT/SGPT) Alkaline 79 Phosphatase B-Type Natriuretic 3380 H Peptide Total Protein 6.2 Albumin 3.2 L Globulin 3.00 Albumin/Globulin 1.06 Ratio Procalcitonin 0.18 H Bedside Glucose 160 Medications Medication Current Medications Atorvastatin Calcium (Lipitor) 80 mg HS PO Last administered on 09/29/18at 20:22 ; Admin Dose 80 MG; Start 09/23/18 at 21:00 Aspirin (Halfprin) 81 mg DAILY PO Last administered on 09/29/18at 07:42; Admin Dose 81 MG; Start 09/24/18 at 09:00 IV Flush (NS 3 ml) 3 ml PER PROTOCOL IV ; Start 09/23/18 at 13:00 Lorazepam (Ativan) 0.5 mg Q8H PRN PO .ANXIETY Last administered on 09/26/18at 13:26; Admin Dose 0.5 MG; Start 09/23/18 at 13:00 Ondansetron HCl (Zofran Inj) 4 mg Q6H PRN IV NAUSEA/VOMITING; Start 09/23/18 at 13:00 Acetaminophen (Tylenol Tab) 650 mg Q6H PRN PO .PAIN 1-3 OR TEMP Last administered on 09/29/18at 23:01; Admin Dose 650 MG; Start 09/23/18 at 13:00 Zolpidem Tartrate (Ambien) 5 mg QHS PRN PO .INSOMNIA; Start 09/23/18 at 13:00 Docusate Sodium (Colace) 100 mg Q12H PRN PO .CONSTIPATION; Start 09/23/18 at 13:00 Magnesium Hydroxide (Milk Of Mag) 30 ml DAILY PRN PO .CONSTIPATION; Start 09/23/18 at 13:00 Miscellaneous Information 1 ea NOTE XX ; Start 09/23/18 at 13:30 Glucose (Glutose) 15 gm Q15M PRN PO DECREASED GLUCOSE; Start 09/23/18 at 13:30 Glucose (Glutose) 22.5 gm Q15M PRN PO DECREASED GLUCOSE; Start 09/23/18 at 13:30 Dextrose (D50w Syringe) 25 ml Q15M PRN IV DECREASED GLUCOSE; Start 09/23/18 at 13:30 Dextrose (D50w Syringe) 50 ml Q15M PRN IV DECREASED GLUCOSE; Start 09/23/18 at 13:30 Glucagon (Glucagen) 1 mg Q15M PRN IM DECREASED GLUCOSE; Start 09/23/18 at 13:30 Glucose (Glutose) 15 gm Q15M PRN BUCCAL DECREASED GLUCOSE; Start 09/23/18 at 13:30 Insulin Aspart (Novolog Insulin Pen) NOVOLOG *MODERATE* ALGORI... Q4 SC Last administered on 09/30/18at 05:14; Admin Dose 2 UNIT; Start 09/23/18 at 17:00 Levofloxacin/ Dextrose 100 ml @ 100 mls/hr Q48H IVPB Last administered on 09/28/18at 10:24; Admin Dose 100 MLS/HR; Start 09/24/18 at 09:30 Enoxaparin Sodium (Lovenox) 75 mg Q24H SC Last administered on 09/29/18at 13:00; Admin Dose 75 MG; Start 09/26/18 at 13:00 Lidocaine (Lidoderm) 1 patch DAILY TD Last administered on 09/29/18at 09:11; Admin Dose 1 PATCH; Start 09/26/18 at 12:00 Vancomycin HCl (Vanco Iv Per Pharmacy) VANCOMYCIN PER PHARMACY PER PROTOCOL XX ; Start 09/26/18 at 09:30 Lorazepam (Ativan) 0.5 mg Q4H PRN IV ANXIETY Last administered on 09/29/18at 23:01; Admin Dose 0.5 MG; Start 09/26/18 at 19:30 Metoprolol Tartrate (Lopressor) 50 mg BID PO Last administered on 09/29/18at 20:22; Admin Dose 50 MG; Start 09/27/18 at 21:00 Felodipine (Plendil) 2.5 mg DAILY PO Last administered on 09/29/18at 11:48; Admin Dose 2.5 MG; Start 09/29/18 at 09:00 Aztreonam 2 gm/ Sodium Chloride 100 ml @ 100 mls/hr Q12 IVPB Last administered on 09/29/18at 20:52; Admin Dose 100 MLS/HR; Start 09/28/18 at 21:00 Furosemide (Lasix) 40 mg DAILY IV ; Start 09/30/18 at 09:00 Famotidine (Pepcid) 20 mg DAILY PO ; Start 09/30/18 at 09:00 Vancomycin HCl 1.25 gm/Sodium Chloride 250 ml @ 83.333 mls/ hr Q24H IVPB Last administered on 09/30/18at 05:15; Admin Dose 83.333 MLS/HR; Start 09/30/18 at 06:00 GENARO SEPULVEDA MD Sep 30, 2018 08:37
[2018-09-30] MEDS: LIDOCAINE 5% PATCH TD SCH (08:58)
[2018-09-30] MEDS ORDERED: FUROSEMIDE 40 MG INJ IV SCH (09:00)
--- NOTE | 2018-09-30 09:12 | CONS ---
Assessment/Plan Assessment/Plan Assessment/Plan (Daily) Chest x-ray was reviewed from today which is showing significant improvement in dense right upper lobe infiltrate. Right lower lobe and left perihilar infiltrates are still present. Assessment and recommendations; 1. Patient admitted with severe bilateral pneumonia with significant interval clinical and radiological improvement. 2. NSTEMI. Possibly demand ischemia. 3. Diastolic dysfunction. 4. Mild anemia. 5. History of hypertension. Hold further Lasix dosing. Patient is getting volume depleted. Continue current supportive care. Wean down FiO2. Obtain follow-up chest x-ray 24 hour s. Consultation Date/Type/Reason Admit Date/Time Sep 23, 2018 at 07:08 Initial Consult Date 09/25/18 Type of Consult Pulmonary/critical care Patient is an 88-year-old lady who was brought into the emergency room yesterday with a 2-day history of increasing shortness of breath and chest pressure. Upon evaluation patient had mild elevation of troponins as well as elevation in BNP level. Chest x-ray showed pulmonary edema, patient has been transferred to ICU and started on BiPAP. Patient also has been on Bumex drip with adequate urine output. Patient reports very little improvement in symptoms of shortness of breath since yesterday. Denies any further chest pain, complains of scant cough with production of clear sputum. Denies any fever chills any body aches or myalgias. According to her she was fine until 2 days ago when the symptoms started. Past medical history; 1. History of hypertension and diabetes. Medications; reviewed. Allergies; penicillin. Social history; patient never smoked. Family history; she is a . Occupational history; noncontributory. Review of systems; complains of cough with mild shortness of breath. Denies any abdominal pain, nausea vomiting. Any fever chills. Patient is on BiPAP therefore a limited review of systems could be obtained. General exam; elderly lady, on BiPAP. Awake and alert. Currently no distress. Date/Time of Note DATE: 09/30/18 TIME: 09:09 24 HR Interval Summary Free Text/Dictation Patient's condition is significantly improved compared to yesterday. There is marked reduction in dyspnea. Patient also improved with significant reduction in shortness of breath. Denies any coughing, wheezing or any sputum production. General exam; elderly woman, awake alert, currently in no distress. On high flow nasal cannula. Exam/Review of Systems Exam Vitals Vital Signs Date Temp Pulse Resp B/P (MAP) Pulse Ox O2 O2 Flow FiO2 Time Delivery Rate 09/30/18 105 08:00 09/30/18 99 100 06:01 09/30/18 23 155/85 06:00 (108) 09/30/18 98.0 04:00 09/30/18 15.0 02:20 09/29/18 Nasal 20:00 Cannula Intake and Output 09/29/18 09/29/18 09/30/18 1515:00 23:00 07:00 IntakeIntake Total 660 ml 400 ml 200 ml OutputOutput Total 685 ml 555 ml 550 ml BalanceBalance -25 ml -155 ml -350 ml Exam H EENT exam; supple neck, no JVD. No lymphadenopathy. Midline trachea. No thyromegaly. Patient has fair dentition. No neck masses. Pupils are small bilaterally. Chest exam; diminished breath sounds bilaterally with marked reduction in bilateral crackles. S1-S2 audible, no murmurs. Regular rhythm. Abdomen exam; soft, nontender. No organomegaly. Bowel sounds are audible. Extremity exam; no peripheral edema clubbing. MANAGER WELDING exam; no focal deficit. Results Result Diagram: 09/30/18 0543 09/30/18 0543 Results 24hrs Laboratory Tests Test 09/29/18 09:18 09/29/18 09:37 09/29/18 12:48 09/29/18 17:40 Bedside Glucose 163 185 200 Vancomycin Level 8.4 L Trough Test 09/29/18 20:11 09/30/18 01:06 09/30/18 05:11 09/30/18 05:43 Bedside Glucose 233 H 135 177 White Blood Count 8.0 Red Blood Count 3.73 L Hemoglobin 10.4 L Hematocrit 33.7 L Mean Corpuscular 90.3 Volume Mean Corpuscular 27.9 L Hemoglobin Mean Corpuscular 30.9 L Hemoglobin Concent Red Cell 13.3 Distribution Width Platelet Count 326 Mean Platelet Volume 11.0 H Immature 1.500 H Granulocytes % Neutrophils % 76.8 Lymphocytes % 13.6 L Monocytes % 6.0 Eosinophils % 1.7 Basophils % 0.4 Nucleated Red Blood 0.0 Cells % Immature 0.120 H Granulocytes # Neutrophils # 6.2 Lymphocytes # 1.1 Monocytes # 0.5 Eosinophils # 0.1 Basophils # 0.0 Nucleated Red Blood 0.0 Cells # Sodium Level 144 Potassium Level 4.0 Chloride Level 110 Carbon Dioxide Level 28 Anion Gap 6 Blood Urea Nitrogen 49 H Creatinine 0.92 Est Glomerular Filtrat Rate mL/min Glucose Level 183 Calcium Level 9.2 Phosphorus Level 3.6 Magnesium Level 2.4 Total Bilirubin 0.4 Direct Bilirubin 0.00 Indirect Bilirubin 0.4 Aspartate Amino 31 Transf (AST/SGOT) Alanine 33 Aminotransferase (AL T/SGPT) Alkaline Phosphatase 79 B-Type Natriuretic 3380 H Peptide Total Protein 6.2 Albumin 3.2 L Globulin 3.00 Albumin/Globulin 1.06 Ratio Procalcitonin 0.18 H Test 09/30/18 08:09 Bedside Glucose 160 Medications Medication Current Medications Atorvastatin Calcium (Lipitor) 80 mg HS PO Last administered on 09/29/18at 20:22; Admin Dose 80 MG; Start 09/23/18 at 21:00 Aspirin (Halfprin) 81 mg DAILY PO Last administered on 09/30/18at 08:17; Admin Dose 81 MG; Start 09/24/18 at 09:00 IV Flush (NS 3 ml) 3 ml PER PROTOCOL IV ; Start 09/23/18 at 13:00 Lorazepam (Ativan) 0.5 mg Q8H PRN PO .ANXIETY Last administered on 09/26/18at 13:26; Admin Dose 0.5 MG; Start 09/23/18 at 13:00 Ondansetron HCl (Zofran Inj) 4 mg Q6H PRN IV NAUSEA/VOMITING; Start 09/23/18 at 13:00 Acetaminophen (Tylenol Tab) 650 mg Q6H PRN PO .PAIN 1-3 OR TEMP Last administered on 09/29/18at 23:01; Admin Dose 650 MG; Start 09/23/18 at 13:00 Zolpidem Tartrate (Ambien) 5 mg QHS PRN PO .INSOMNIA; Start 09/23/18 at 13:00 Docusate Sodium (Colace) 100 mg Q12H PRN PO .CONSTIPATION; Start 09/23/18 at 13:00 Magnesium Hydroxide (Milk Of Mag) 30 ml DAILY PRN PO .CONSTIPATION; Start 09/23/18 at 13:00 Miscellaneous Information 1 ea NOTE XX ; Start 09/23/18 at 13:30 Glucose (Glutose) 15 gm Q15M PRN PO DECREASED GLUCOSE; Start 09/23/18 at 13:30 Glucose (Glutose) 22.5 gm Q15M PRN PO DECREASED GLUCOSE; Start 09/23/18 at 13:30 Dextrose (D50w Syringe) 25 ml Q15M PRN IV DECREASED GLUCOSE; Start 09/23/18 at 13:30 Dextrose (D50w Syringe) 50 ml Q15M PRN IV DECREASED GLUCOSE; Start 09/23/18 at 13:30 Glucagon (Glucagen) 1 mg Q15M PRN IM DECREASED GLUCOSE; Start 09/23/18 at 13:30 Glucose (Glutose) 15 gm Q15M PRN BUCCAL DECREASED GLUCOSE; Start 09/23/18 at 13:30 Insulin Aspart (Novolog Insulin Pen) NOVOLOG *MODERATE* ALGORI... Q4 SC Last administered on 09/30/18at 08:16; Admin Dose 2 UNIT; Start 09/23/18 at 17:00 Levofloxacin/ Dextrose 100 ml @ 100 mls/hr Q48H IVPB Last administered on 09/28/18at 10:24; Admin Dose 100 MLS/HR; Start 09/24/18 at 09:30 Enoxaparin Sodium (Lovenox) 75 mg Q24H SC Last administered on 09/29/18at 13:00; Admin Dose 75 MG; Start 09/26/18 at 13:00 Lidocaine (Lidoderm) 1 patch DAILY TD Last administered on 09/30/18at 08:58; Admin Dose 1 PATCH; Start 09/26/18 at 12:00 Vancomycin HCl (Vanco Iv Per Pharmacy) VANCOMYCIN PER PHARMACY PER PROTOCOL XX ; Start 09/26/18 at 09:30 Lorazepam (Ativan) 0.5 mg Q4H PRN IV ANXIETY Last administered on 09/29/18at 23:01; Admin Dose 0.5 MG; Start 09/26/18 at 19:30 Metoprolol Tartrate (Lopressor) 50 mg BID PO Last administered on 09/30/18at 08:18; Admin Dose 50 MG; Start 09/27/18 at 21:00 Felodipine (Plendil) 2.5 mg DAILY PO Last administered on 09/30/18at 08:17; Admin Dose 2.5 MG; Start 09/29/18 at 09:00 Aztreonam 2 gm/ Sodium Chloride 100 ml @ 100 mls/hr Q12 IVPB Last administered on 09/29/18at 20:52; Admin Dose 100 MLS/HR; Start 09/28/18 at 21:00 Furosemide (Lasix) 40 mg DAILY IV Last administered on 09/30/18at 08:17; Admin Dose 40 MG; Start 09/30/18 at 09:00 Famotidine (Pepcid) 20 mg DAILY PO Last administered on 09/30/18at 08:17; Admin Dose 20 MG; Start 09/30/18 at 09:00 Vancomycin HCl 1.25 gm/Sodium Chloride 250 ml @ 83.333 mls/ hr Q24H IVPB Last administered on 09/30/18at 05:15; Admin Dose 83.333 MLS/HR; Start 09/30/18 at 06:00 DONNA GENTILE Sep 30, 2018 09:12
[2018-09-30] MEDS: LEVOFLOXACIN 500MG/D5W (PMX) 100 ML IVPB SCH (10:13)
[2018-09-30] MEDS: AZTREONAM 2 GM in SOD CHLORIDE 0.9% 100 ML IVPB SCH ×2 (10:13→20:52)
[2018-09-30] MEDS: ENOXAPARIN 80 MG/0.8 ML SYG SC SCH (12:26)
--- NOTE | 2018-09-30 14:46 | RADRPT ---
Vent Rate: 90 bpm RR Interval: 668 msec MD Interval: 183 msec QRS Duration: 106 msec QT Interval: 349 msec QTC Interval: 427 msec P-R-T Kevil: 80 - 87 - -71 degrees Sinus rhythm...normal P axis, V-rate 50- [address]/T changes Electronically Signed By: Bandar Toledo
[2018-09-30] MEDS: ATORVASTATIN 80 MG TAB PO SCH (20:52)
[2018-10-01] VITALS (29 sets, daily range): BP systolic 110–163; BP diastolic 47–99; PULSE 67–94; RESP 14–43
[2018-10-01] MEDS: INSULIN ASPART [NOVOLOG] 3 ML PEN SC SCH ×6 (01:03→21:13)
[2018-10-01] MEDS: VANCOMYCIN HCL 1.25 GM in SOD CHLORIDE 0.9% 250 ML IVPB SCH (06:01)
[2018-10-01] MEDS: ASPIRIN (EC) 81 MG TAB PO SCH (08:20)
[2018-10-01] MEDS: FAMOTIDINE 20 MG TAB PO SCH (08:20)
[2018-10-01] MEDS: FELODIPINE (ER) 2.5 MG TAB PO SCH (08:20)
[2018-10-01] MEDS: METOPROLOL 50 MG TAB PO SCH ×2 (08:21→20:28)
[2018-10-01] MEDS: LIDOCAINE 5% PATCH TD SCH (08:21)
--- NOTE | 2018-10-01 08:47 | PN ---
Date/Time of Note Date/Time of Note DATE: 10/01/18 TIME: 08:42 Assessment/Plan VTE Prophylaxis Risk score (from [facility])>0 risk: 11 SCD applied (from [facility]): Yes Pharmacological prophylaxis: LMWH Lines/Catheters IV Catheter Type (from [facility]): Peripheral IV Urinary Cath still in place: Yes Reason Cath still needed: urinary retention Assessment/Plan Hospital Course 1. Congestive heart failure /pneumonia. She is improved clinically. She is receiving broad-spectrum antibiotics for pneumonia as she has an elevated pro calcitonin level . She is getting regular diuretics as she is also in congestive heart failure. Chest x-ray is pending for this morning. 2. Renal failure. Her serum creatinine is normal and stable. She has been in negative fluid balance the last 4 days after receiving Lasix IV once daily which she will continue to get. 3. Respiratory failure . She is now off BiPAP and on high flow oxygen. She was getting BiPAP at night. 4. Elevated troponin levels being seen by cardiology 5. History of hypertension 6. Type 2 diabetes mellitus being controlled. 7. Iron deficiency anemia. Patient is on course of Ferrlicit, IV iron replacement. 8. Atrial fibrillation, she has now converted to sinus rhythm.. Result Diagram: 09/30/18 0543 10/01/18 0517 Results 24hrs Laboratory Tests Test 09/30/18 12:17 09/30/18 17:08 09/30/18 20:58 10/01/18 00:59 Bedside Glucose 208 174 169 194 Test 10/01/18 05:17 10/01/18 05:23 10/01/18 08:10 Sodium Level 145 H Potassium Level 4.5 Chloride Level 108 Carbon Dioxide Level 31 Anion Gap 6 Blood Urea Nitrogen 43 H Creatinine 0.98 Est Glomerular Filtrat Rate mL/min Glucose Level 176 Calcium Level 9.4 Total Bilirubin 0.4 Direct Bilirubin 0.00 Indirect Bilirubin 0.4 Aspartate Amino 43 Transf (AST/SGOT) Alanine 51 Aminotransferase (AL T/SGPT) Alkaline Phosphatase 82 Total Protein 5.9 L Albumin 3.1 L Globulin 2.80 Albumin/Globulin 1.10 Ratio Bedside Glucose 163 158 Subjective 24 Hr Interval Summary Free Text/Dictation This patient is being seen in the intensive care unit. She is awake and alert. Her niece is in the room with her. The patient has a high flow nasal cannula in place. She did have BiPAP overnight. She is eating breakfast. She has a productive cough. Constitutional: improved Respiratory: cough, shortness of breath Cardiovascular: no complaints Gastrointestinal: no complaints Genitourinary: no complaints Musculoskeletal: no complaints Neurologic: no complaints Exam/Review of Systems Exam Vitals Vital Signs Date Temp Pulse Resp B/P (MAP) Pulse Ox O2 O2 Flow FiO2 Time Delivery Rate 10/01/18 98.2 88 19 149/56 95 High Flow 08:00 (87) 10/01/18 60 05:15 09/30/18 15.0 02:20 Intake and Output 09/30/18 09/30/18 10/01/18 1515:00 23:00 07:00 IntakeIntake Total 580 ml 790 ml OutputOutput Total 700 ml 575 ml 350 ml BalanceBalance -120 ml 215 ml -350 ml Constitutional: alert, oriented, frail Respiratory: congested cough, crackles/rales Cardiovascular: regular rate and rhythm Gastrointestinal: soft, non-tender Musculoskeletal: nl extremities to inspection Results Results 24hrs Laboratory Tests Test 09/30/18 12:17 09/30/18 17:08 09/30/18 20:58 10/01/18 00:59 Bedside Glucose 208 174 169 194 Test 10/01/18 05:17 10/01/18 05:23 10/01/18 08:10 Sodium Level 145 H Potassium Level 4.5 Chloride Level 108 Carbon Dioxide Level 31 Anion Gap 6 Blood Urea Nitrogen 43 H Creatinine 0.98 Est Glomerular Filtrat Rate mL/min Glucose Level 176 Calcium Level 9.4 Total Bilirubin 0.4 Direct Bilirubin 0.00 Indirect Bilirubin 0.4 Aspartate Amino 43 Transf (AST/SGOT) Alanine 51 Aminotransferase (AL T/SGPT) Alkaline Phosphatase 82 Total Protein 5.9 L Albumin 3.1 L Globulin 2.80 Albumin/Globulin 1.10 Ratio Bedside Glucose 163 158 Medications Medication Current Medications Atorvastatin Calcium (Lipitor) 80 mg HS PO Last administered on 09/30/18at 20:52; Admin Dose 80 MG; Start 09/23/18 at 21:00 Aspirin (Halfprin) 81 mg DAILY PO Last administered on 10/01/18at 08:20; Admin Dose 81 MG; Start 09/24/18 at 09:00 IV Flush (NS 3 ml) 3 ml PER PROTOCOL IV ; Start 09/23/18 at 13:00 Lorazepam (Ativan) 0.5 mg Q8H PRN PO .ANXIETY Last administered on 09/26/18at 13:26; Admin Dose 0.5 MG; Start 09/23/18 at 13:00 Ondansetron HCl (Zofran Inj) 4 mg Q6H PRN IV NAUSEA/VOMITING; Start 09/23/18 at 13:00 Acetaminophen (Tylenol Tab) 650 mg Q6H PRN PO .PAIN 1-3 OR TEMP Last administered on 09/29/18at 23:01; Admin Dose 650 MG; Start 09/23/18 at 13:00 Zolpidem Tartrate (Ambien) 5 mg QHS PRN PO .INSOMNIA; Start 09/23/18 at 13:00 Docusate Sodium (Colace) 100 mg Q12H PRN PO .CONSTIPATION; Start 09/23/18 at 13:00 Magnesium Hydroxide (Milk Of Mag) 30 ml DAILY PRN PO .CONSTIPATION; Start 09/23 at 13:00 Miscellaneous Information 1 ea NOTE XX ; Start 09/23/18 at 13:30 Glucose (Glutose) 15 gm Q15M PRN PO DECREASED GLUCOSE; Start 09/23/18 at 13:30 Glucose (Glutose) 22.5 gm Q15M PRN PO DECREASED GLUCOSE; Start 09/23/18 at 13:30 Dextrose (D50w Syringe) 25 ml Q15M PRN IV DECREASED GLUCOSE; Start 09/23/18 at 13:30 Dextrose (D50w Syringe) 50 ml Q15M PRN IV DECREASED GLUCOSE; Start 09/23/18 at 13:30 Glucagon (Glucagen) 1 mg Q15M PRN IM DECREASED GLUCOSE; Start 09/23/18 at 13:30 Glucose (Glutose) 15 gm Q15M PRN BUCCAL DECREASED GLUCOSE; Start 09/23/18 at 13:30 Insulin Aspart (Novolog Insulin Pen) NOVOLOG *MODERATE* ALGORI... Q4 SC Last administered on 10/01/18at 08:14; Admin Dose 2 UNIT; Start 09/23/18 at 17:00 Levofloxacin/ Dextrose 100 ml @ 100 mls/hr Q48H IVPB Last administered on 09/30/18at 10:13; Admin Dose 100 MLS/HR; Start 09/24/18 at 09:30 Enoxaparin Sodium (Lovenox) 75 mg Q24H SC Last administered on 09/30/18 12:26; Admin Dose 75 MG; Start 09/26/18 at 13:00 Lidocaine (Lidoderm) 1 patch DAILY TD Last administered on 10/01/18 08:21; Admin Dose 1 PATCH; Start 09/26/18 at 12:00 Vancomycin HCl (Vanco Iv Per Pharmacy) VANCOMYCIN PER PHARMACY PER PROTOCOL XX ; Start 09/26/18 at 09:30 Lorazepam (Ativan) 0.5 mg Q4H PRN IV ANXIETY Last administered on 09/29/18 23: 01; Admin Dose 0.5 MG; Start 09/26/18 at 19:30 Metoprolol Tartrate (Lopressor) 50 mg BID PO Last administered on 10/01/18 08:21; Admin Dose 50 MG; Start 09/27/18 at 21:00 Felodipine (Plendil) 2.5 mg DAILY PO Last administered on 10/01/18 08:20; Admin Dose 2.5 MG; Start 09/29/18 at 09:00 Aztreonam 2 gm/ Sodium Chloride 100 ml @ 100 mls/hr Q12 IVPB Last administered on 09/30/18 20:52; Admin Dose 100 MLS/HR; Start 09/28/18 at 21:00 Famotidine (Pepcid) 20 mg DAILY PO Last administered on 10/01/18 08:20; Admin Dose 20 MG; Start 09/30/18 at 09:00 Vancomycin HCl 1.25 gm/Sodium Chloride 250 ml @ 83.333 mls/ hr Q24H IVPB Last administered on 10/01/18 06:01; Admin Dose 83.333 MLS/HR; Start 09/30/18 at 06:00 Furosemide (Lasix) 40 mg DAILY IV ; Start 10/01/18 at 09:00; Status GENARO FERNANDEZ MD Oct 01, 2018 08:47
--- NOTE | 2018-10-01 08:57 | CONS ---
Assessment/Plan Assessment/Plan Assessment/Plan (Daily) Chest x-ray is pending from today. Assessment and recommendations; 1. Patient admitted with severe bilateral community acquired pneumonia with some interval improvement. Patient currently on appropriate broad-spectrum antimicrobial coverage. 2. NSTEMI. Possibly demand ischemia. Patient currently too unstable to undergo coronary angiography. 3. History of hypertension. 4. CHF. Continue current supportive care. Awaiting chest x-ray from this morning. Agree with initiating Lasix again. Obtain follow-up chest x-ray 24 hours. Consultation Date/Type/Reason Admit Date/Time Sep 23, 2018 at 07:08 Initial Consult Date 09/25/18 Type of Consult Pulmonary/critical care Patient is an 88-year-old lady who was brought into the emergency room yesterday with a 2-day history of increasing shortness of breath and chest pressure. Upon evaluation patient had mild elevation of troponins as well as elevation in BNP level. Chest x-ray showed pulmonary edema, patient has been transferred to ICU and started on BiPAP. Patient also has been on Bumex drip with adequate urine output. Patient reports very little improvement in symptoms of shortness of breath since yesterday. Denies any further chest pain, complains of scant cough with production of clear sputum. Denies any fever chills any body aches or myalgias. According to her she was fine until 2 days ago when the symptoms started. Past medical history; 1. History of hypertension and diabetes. Medications; reviewed. Allergies; penicillin. Social history; patient never smoked. Family history; she is a . Occupational history; noncontributory. Review of systems; complains of cough with mild shortness of breath. Denies any abdominal pain, nausea vomiting. Any fever chills. Patient is on BiPAP therefore a limited review of systems could be obtained. General exam; elderly lady, on BiPAP. Awake and alert. Currently no distress. Date/Time of Note DATE: 10/01/18 TIME: 08:54 24 HR Interval Summary Free Text/Dictation Patient's condition is tenuous. Still on 100% FiO2 via high flow nasal cannula. Patient complains of cough and chest congestion. Complains of very mild shortness of breath. General exam; elderly woman, awake and alert. Having breakfast on bed. Currently in no distress. Patient though appearing mildly tachypneic. Exam/Review of Systems Exam Vitals Vital Signs Date Temp Pulse Resp B/P (MAP) Pulse Ox O2 O2 Flow FiO2 Time Delivery Rate 10/01/18 98.2 88 19 149/56 95 High Flow 08:00 (87) 10/01/18 60 05:15 09/30/18 15.0 02:20 Intake and Output 09/30/18 09/30/18 10/01/18 1515:00 23:00 07:00 IntakeIntake Total 580 ml 790 ml OutputOutput Total 700 ml 575 ml 350 ml BalanceBalance -120 ml 215 ml -350 ml Exam H ENT exam; supple neck, no JVD. No lymphadenopathy. Midline trachea. No thyromegaly. No neck masses. Patient has fair dentition. On high flow nasal cannula at 35 L/min 100% FiO2. Chest exam; diminished breath sounds bilaterally. With very minimal crackles. S1-S2 audible, no murmurs. Regular rhythm. Abdomen exam; soft, nontender. No organomegaly. Bowel sounds audible. Extremity exam; no peripheral edema. STITCH SEPARATOR exam; no focal deficit. Results Result Diagram: 09/30/18 0543 10/01/18 0517 Results 24hrs Laboratory Tests Test 09/30/18 12:17 09/30/18 17:08 09/30/18 20:58 10/01/18 00:59 Bedside Glucose 208 174 169 194 Test 10/01/18 05:17 10/01/18 05:23 10/01/18 08:10 Sodium Level 145 H Potassium Level 4.5 Chloride Level 108 Carbon Dioxide Level 31 Anion Gap 6 Blood Urea Nitrogen 43 H Creatinine 0.98 Est Glomerular Filtrat Rate mL/min Glucose Level 176 Calcium Level 9.4 Total Bilirubin 0.4 Direct Bilirubin 0.00 Indirect Bilirubin 0.4 Aspartate Amino 43 Transf (AST/SGOT) Alanine 51 Aminotransferase (AL T/SGPT) Alkaline Phosphatase 82 Total Protein 5.9 L Albumin 3.1 L Globulin 2.80 Albumin/Globulin 1.10 Ratio Bedside Glucose 163 158 Medications Medication Current Medications Atorvastatin Calcium (Lipitor) 80 mg HS PO Last administered on 09/30/18at 20:52; Admin Dose 80 MG; Start 09/23/18 at 21:00 Aspirin (Halfprin) 81 mg DAILY PO Last administered on 10/01/18at 08:20; Admin Dose 81 MG; Start 09/24/18 at 09:00 IV Flush (NS 3 ml) 3 ml PER PROTOCOL IV ; Start 09/23/18 at 13:00 Lorazepam (Ativan) 0.5 mg Q8H PRN PO .ANXIETY Last administered on 09/26/18at 13:26; Admin Dose 0.5 MG; Start 09/23/18 at 13:00 Ondansetron HCl (Zofran Inj) 4 mg Q6H PRN IV NAUSEA/VOMITING; Start 09/23/18 at 13:00 Acetaminophen (Tylenol Tab) 650 mg Q6H PRN PO .PAIN 1-3 OR TEMP Last administered on 09/29/18at 23:01; Admin Dose 650 MG; Start 09/23/18 at 13:00 Zolpidem Tartrate (Ambien) 5 mg QHS PRN PO .INSOMNIA; Start 09/23/18 at 13:00 Docusate Sodium (Colace) 100 mg Q12H PRN PO .CONSTIPATION; Start 09/23/18 at 13:00 Magnesium Hydroxide (Milk Of Mag) 30 ml DAILY PRN PO .CONSTIPATION; Start 09/23/18 at 13:00 Miscellaneous Information 1 ea NOTE XX ; Start 09/23/18 at 13:30 Glucose (Glutose) 15 gm Q15M PRN PO DECREASED GLUCOSE; Start 09/23/18 at 13:30 Glucose (Glutose) 22.5 gm Q15M PRN PO DECREASED GLUCOSE; Start 09/23/18 at 13:3 0 Dextrose (D50w Syringe) 25 ml Q15M PRN IV DECREASED GLUCOSE; Start 09/23/18 at 13:30 Dextrose (D50w Syringe) 50 ml Q15M PRN IV DECREASED GLUCOSE; Start 09/23/18 at 13:30 Glucagon (Glucagen) 1 mg Q15M PRN IM DECREASED GLUCOSE; Start 09/23/18 at 13:30 Glucose (Glutose) 15 gm Q15M PRN BUCCAL DECREASED GLUCOSE; Start 09/23/18 at 13:30 Insulin Aspart (Novolog Insulin Pen) NOVOLOG *MODERATE* ALGORI... Q4 SC Last administered on 10/01/18at 08:14; Admin Dose 2 UNIT; Start 09/23/18 at 17:00 Levofloxacin/ Dextrose 100 ml @ 100 mls/hr Q48H IVPB Last administered on 09/30/18 10:13; Admin Dose 100 MLS/HR; Start 09/24/18 at 09:30 Enoxaparin Sodium (Lovenox) 75 mg Q24H SC Last administered on 09/30/18 12:26; Admin Dose 75 MG; Start 09/26/18 at 13:00 Lidocaine (Lidoderm) 1 patch DAILY TD Last administered on 10/01/18 08:21; Admin Dose 1 PATCH; Start 09/26/18 at 12:00 Vancomycin HCl (Vanco Iv Per Pharmacy) VANCOMYCIN PER PHARMACY PER PROTOCOL XX ; Start 09/26/18 at 09:30 Lorazepam (Ativan) 0.5 mg Q4H PRN IV ANXIETY Last administered on 09/29/18 23:01; Admin Dose 0.5 MG; Start 09/26/18 at 19:30 Metoprolol Tartrate (Lopressor) 50 mg BID PO Last administered on 10/01/18 08:21; Admin Dose 50 MG; Start 09/27/18 at 21:00 Felodipine (Plendil) 2.5 mg DAILY PO Last administered on 10/01/18 08:20; Admin Dose 2.5 MG; Start 09/29/18 at 09:00 Aztreonam 2 gm/ Sodium Chloride 100 ml @ 100 mls/hr Q12 IVPB Last administered on 09/30/18 20:52; Admin Dose 100 MLS/HR; Start 09/28/18 at 21:00 Famotidine (Pepcid) 20 mg DAILY PO Last administered on 10/01/18 08:20; Admin Dose 20 MG; Start 09/30/18 at 09:00 Vancomycin HCl 1.25 gm/Sodium Chloride 250 ml @ 83.333 mls/ hr Q24H IVPB Last administered on 10/01/18 06:01; Admin Dose 83.333 MLS/HR; Start 09/30/18 at 06:00 Furosemide (Lasix) 40 mg DAILY@0600 IV ; Start 10/01/18 at 09:00 DONNA GENTILE 19, 2019 08:57
[2018-10-01] MEDS: FUROSEMIDE 40 MG INJ IV SCH (09:24)
[2018-10-01] MEDS: AZTREONAM 2 GM in SOD CHLORIDE 0.9% 100 ML IVPB SCH ×2 (09:24→20:28)
[2018-10-01] MEDS: GUAIFENESIN/CODEINE 5ML CUP PO PRN ×2 (11:04→22:01)
--- NOTE | 2018-10-01 11:59 | CONS ---
Assessment/Plan Assessment/Plan Hospital Course (Demo Recall) ASSESSMENT: 1. Multi lobar probable right lung pneumonia possible ARDS. 2. Non-ST elevation myocardial infarction. 3. Hypertension. 4. Type 2 diabetes. 5. Mild to moderate aortic stenosis. 6. Acute diastolic heart failure. 7. Gout. 8. Normocytic anemia. 9. Hyperlipidemia. 10. Acute respiratory failure probably multifactorial secondary to pneumonia and concomitant heart failure. 11. History of breast cancer. 12. Renal insufficiency. 13. PAF- < 24hr, converted to nsr. PLAN: 1. Continue diuresis, felodipine, metoprolol, Lovenox, Lasix IV, Pepcid IV, aspirin and statin. 2. watch bun/cr -> improving 3. watch rhythm for recurrent afib, would not anticoag given < 24 hr afib 4. resp mgmt per pulm. consider LHC when pt stable/recovered from pulm process Consultation Date/Type/Reason Admit Date/Time Sep 23, 2018 at 07:08 Initial Consult Date 09/25/18 Date/Time of Note DATE: 10/01/18 TIME: 11:52 24 HR Interval Summary Free Text/Dictation remains on high flow o2 and overnight bipap. states sob continues, stable w cough. no fever. no chest pain, palpitations tele reviewed nsr no recurrent afib Detailed Summary Eyes: no complaints ENT: no complaints Respiratory: shortness of breath Cardiovascular: no complaints Gastrointestinal: no complaints Exam/Review of Systems Exam Vitals Vital Signs Date Temp Pulse Resp B/P (MAP) Pulse Ox O2 O2 Flow FiO2 Time Delivery Rate 10/01/18 80 24 124/94 94 High Flow 10:00 (104) 10/01/18 98.2 08:00 10/01/18 60 05:15 09/30/18 15.0 02:20 Intake and Output 09/30/18 09/30/18 10/01/18 1515:00 23:00 07:00 IntakeIntake Total 580 ml 790 ml OutputOutput Total 700 ml 575 ml 350 ml BalanceBalance -120 ml 215 ml -350 ml Exam HEENT; no JVD, no HJR, carotids 2 over 4+ without bruits. Chest: Difficult exam no wheezes or rhonchi. Cardiac: S4, S1, S2 with normal physiologic splitting, 2/6 early to mid peaking systolic ejection murmur, no rub click or diastolic murmur noted. Abdominal: Bowel sounds positive, soft nontender, no abdominal bruit noted, no hepatosplenomegaly. Extremities: No cyanosis, clubbing, or edema. Negative Homans sign or palpable cords. Pulses: 2/4 pulses diffusely no bruits noted. Results Result Diagram: 09/30/18 0543 10/01/18 0517 Results 24hrs Laboratory Tests Test 09/30/18 12:17 09/30/18 17:08 09/30/18 20:58 10/01/18 00:59 Bedside Glucose 208 174 169 194 Test 10/01/18 05:17 10/01/18 05:23 10/01/18 08:10 10/01/18 11:33 Sodium Level 145 H Potassium Level 4.5 Chloride Level 108 Carbon Dioxide Level 31 Anion Gap 6 Blood Urea Nitrogen 43 H Creatinine 0.98 Est Glomerular Filtrat Rate mL/min Glucose Level 176 Calcium Level 9.4 Total Bilirubin 0.4 Direct Bilirubin 0.00 Indirect Bilirubin 0.4 Aspartate Amino 43 Transf (AST/SGOT) Alanine 51 Aminotransferase (AL T/SGPT) Alkaline Phosphatase 82 Total Protein 5.9 L Albumin 3.1 L Globulin 2.80 Albumin/Globulin 1.10 Ratio Bedside Glucose 163 158 216 Imaging Imaging cxr report reviewed in emr Medications Medication Current Medications Atorvastatin Calcium (Lipitor) 80 mg HS PO Last administered on 09/30/18at 20:52; Admin Dose 80 MG; Start 09/23/18 at 21:00 Aspirin (Halfprin) 81 mg DAILY PO Last administered on 10/01/18at 08:20; Admin Dose 81 MG; Start 09/24/18 at 09:00 IV Flush (NS 3 ml) 3 ml PER PROTOCOL IV ; Start 09/23/18 at 13:00 Lorazepam (Ativan) 0.5 mg Q8H PRN PO .ANXIETY Last administered on 09/26/18at 13:26; Admin Dose 0.5 MG; Start 09/23/18 at 13:00 Ondansetron HCl (Zofran Inj) 4 mg Q6H PRN IV NAUSEA/VOMITING; Start 09/23/18 at 13:00 Acetaminophen (Tylenol Tab) 650 mg Q6H PRN PO .PAIN 1-3 OR TEMP Last administered on 09/29/18at 23:01; Admin Dose 650 MG; Start 09/23/18 at 13:00 Zolpidem Tartrate (Ambien) 5 mg QHS PRN PO .INSOMNIA; Start 09/23/18 at 13:00 Docusate Sodium (Colace) 100 mg Q12H PRN PO .CONSTIPATION; Start 09/23/18 at 13:00 Magnesium Hydroxide (Milk Of Mag) 30 ml DAILY PRN PO .CONSTIPATION; Start 09/23/18 at 13:00 Miscellaneous Information 1 ea NOTE XX ; Start 09/23/18 at 13:30 Glucose (Glutose) 15 gm Q15M PRN PO DECREASED GLUCOSE; Start 09/23/18 at 13:30 Glucose (Glutose) 22.5 gm Q15M PRN PO DECREASED GLUCOSE; Start 09/23/18 at 13:30 Dextrose (D50w Syringe) 25 ml Q15M PRN IV DECREASED GLUCOSE; Start 09/23/18 at 13:30 Dextrose (D50w Syringe) 50 ml Q15M PRN IV DECREASED GLUCOSE; Start 09/23/18 at 13:30 Glucagon (Glucagen) 1 mg Q15M PRN IM DECREASED GLUCOSE; Start 09/23/18 at 13:30 Glucose (Glutose) 15 gm Q15M PRN BUCCAL DECREASED GLUCOSE; Start 09/23/18 at 13:30 Levofloxacin/ Dextrose 100 ml @ 100 mls/hr Q48H IVPB Last administered on 09/30/18at 10:13; Admin Dose 100 MLS/HR; Start 09/24/18 at 09:30 Enoxaparin Sodium (Lovenox) 75 mg Q24H SC Last administered on 09/30/18at 12:26; Admin Dose 75 MG; Start 09/26/18 at 13:00 Lidocaine (Lidoderm) 1 patch DAILY TD Last administered on 10/01/18at 08:21; Admin Dose 1 PATCH; Start 09/26/18 at 12:00 Vancomycin HCl (Vanco Iv Per Pharmacy) VANCOMYCIN PER PHARMACY PER PROTOCOL XX ; Start 09/26/18 at 09:30 Lorazepam (Ativan) 0.5 mg Q4H PRN IV ANXIETY Last administered on 09/29/18at 23:01; Admin Dose 0.5 MG; Start 09/26/18 at 19:30 Metoprolol Tartrate (Lopressor) 50 mg BID PO Last administered on 10/01/18 08:21; Admin Dose 50 MG; Start 09/27/18 at 21:00 Felodipine (Plendil) 2.5 mg DAILY PO Last administered on 10/01/18 08:20; Admin Dose 2.5 MG; Start 09/29/18 at 09:00 Aztreonam 2 gm/ Sodium Chloride 100 ml @ 100 mls/hr Q12 IVPB Last administered on 10/01/18 09:24; Admin Dose 100 MLS/HR; Start 09/28/18 at 21:00 Famotidine (Pepcid) 20 mg DAILY PO Last administered on 10/01/18 08:20; Admin Dose 20 MG; Start 09/30/18 at 09:00 Vancomycin HCl 1.25 gm/Sodium Chloride 250 ml @ 83.333 mls/ hr Q24H IVPB Last administered on 10/01/18 06:01; Admin Dose 83.333 MLS/HR; Start 09/30/18 at 06:00 Furosemide (Lasix) 40 mg DAILY@0600 IV Last administered on 10/01/18 09:24; Admin Dose 40 MG; Start 10/01/18 at 09:00 Guaifenesin/ Codeine Phosphate (Robitussin Ac Liquid Cup) 5 ml Q4H PRN PO COUGH Last administered on 10/01/18 11:04; Admin Dose 5 ML; Start 10/01/18 at 10:30 Insulin Aspart (Novolog Insulin Pen) NOVOLOG *MODERATE* ALGORITHM WITH MEALS BEDTIME SC Last administered on 10/01/18 11:35; Admin Dose 4 UNIT; Start 10/01/18 at 11:30 Diagnostic Test (Pha) (Accu-Chek) 1 ea 02 XX ; Start 10/02/18 at 02:00 YAIMA BARROW Oct 01, 2018 11:59
[2018-10-01] MEDS: ENOXAPARIN 80 MG/0.8 ML SYG SC SCH (13:30)
[2018-10-01] MEDS: ATORVASTATIN 80 MG TAB PO SCH (20:28)
[2018-10-01] MEDS: ARTIFICIAL TEARS 15 ML OPH BOTH EYES PRN (21:11)
[2018-10-02] VITALS (27 sets, daily range): BP systolic 109–158; BP diastolic 37–108; PULSE 62–101; RESP 14–33
[2018-10-02] MEDS: ACCUCHECK AT 2AM (Patients on SS coverage) XX SCH (02:20)
[2018-10-02] MEDS: GUAIFENESIN/CODEINE 5ML CUP PO PRN ×4 (02:22→19:30)
[2018-10-02] MEDS: VANCOMYCIN HCL 1.25 GM in SOD CHLORIDE 0.9% 250 ML IVPB SCH (05:43)
[2018-10-02] MEDS: FUROSEMIDE 40 MG INJ IV SCH (05:43)
[2018-10-02] MEDS: ARTIFICIAL TEARS 15 ML OPH BOTH EYES PRN (05:51)
[2018-10-02] MEDS: METOPROLOL 50 MG TAB PO SCH ×2 (08:43→20:35)
[2018-10-02] MEDS: FAMOTIDINE 20 MG TAB PO SCH (08:43)
[2018-10-02] MEDS: ASPIRIN (EC) 81 MG TAB PO SCH (08:43)
[2018-10-02] MEDS: FELODIPINE (ER) 2.5 MG TAB PO SCH (08:43)
[2018-10-02] MEDS: LIDOCAINE 5% PATCH TD SCH (08:44)
[2018-10-02] MEDS: INSULIN ASPART [NOVOLOG] 3 ML PEN SC SCH ×4 (08:57→20:36)
--- NOTE | 2018-10-02 08:58 | CONS ---
Assessment/Plan Assessment/Plan Assessment/Plan (Daily) Chest x-ray from today is pending. Assessment and recommendations; 1. Patient admitted with severe bilateral pneumonia with superimposed CHF with slight interval improvement. 2. Positive troponins, etiology is unclear. Possibly demand ischemia. 3. Diastolic dysfunction. 4. History of hypertension. Blood pressure is well controlled. 5. Improvement in prerenal azotemia. Continue current supportive care. Patient possibly may need coronary angiography in a few days once clinically stable. Further recommendations once chest x-ray is obtained. I did have a detailed discussion with the patient's niece at bedside and answered all her questions. Consultation Date/Type/Reason Admit Date/Time Sep 23, 2018 at 07:08 Initial Consult Date 09/25/18 Type of Consult Pulmonary/critical care Patient is an 88-year-old lady who was brought into the emergency room yesterday with a 2-day history of increasing shortness of breath and chest pressure. Upon evaluation patient had mild elevation of troponins as well as elevation in BNP level. Chest x-ray showed pulmonary edema, patient has been transferred to ICU and started on BiPAP. Patient also has been on Bumex drip with adequate urine output. Patient reports very little improvement in symptoms of shortness of breath since yesterday. Denies any further chest pain, complains of scant cough with production of clear sputum. Denies any fever chills any body aches or myalgias. According to her she was fine until 2 days ago when the symptoms started. Past medical history; 1. History of hypertension and diabetes. Medications; reviewed. Allergies; penicillin. Social history; patient never smoked. Family history; she is a . Occupational history; noncontributory. Review of systems; complains of cough with mild shortness of breath. Denies any abdominal pain, nausea vomiting. Any fever chills. Patient is on BiPAP therefore a limited review of systems could be obtained. General exam; elderly lady, on BiPAP. Awake and alert. Currently no distress. Date/Time of Note DATE: 10/02/18 TIME: 08:51 24 HR Interval Summary Free Text/Dictation Patient's condition is still tenuous. On 100% nonrebreather mask. General exam; elderly woman, awake, currently no distress. Appropriately communicative. Exam/Review of Systems Exam Vitals Vital Signs Date Temp Pulse Resp B/P (MAP) Pulse Ox O2 O2 Flow FiO2 Time Delivery Rate 10/02/18 78 08:00 10/02/18 33 154/63 89 High Flow 06:01 (93) Non Rebreather 10/02/18 100 04:05 10/02/18 98.3 04:01 10/02/18 15.0 03:50 Intake and Output 10/01/18 10/01/18 10/02/18 1414:59 22:59 06:59 IntakeIntake Total 850 ml 660 ml 90 ml OutputOutput Total 800 ml 525 ml 425 ml BalanceBalance 50 ml 135 ml -335 ml Exam H ENT exam; supple neck, no JVD. No lymphadenopathy. Midline trachea. No thyromegaly. Patient has fair dentition. On 100% nonrebreather mask. Chest exam; minimal scattered crackles bilaterally. S1-S2 audible, no murmurs. Regular rhythm. Abdomen exam; soft, nontender. No organomegaly. Bowel sounds audible. Extremity exam; no peripheral edema clubbing. WAREHOUSE ASSOCIATE DRIVER exam; no focal deficit. Results Result Diagram: 10/02/18 0554 10/02/18 0554 Results 24hrs Laboratory Tests Test 10/01/18 11:33 10/01/18 17:29 10/01/18 21:10 10/02/18 02:14 Bedside Glucose 216 180 227 H 193 Test 10/02/18 05:54 10/02/18 08:41 White Blood Count 8.2 Red Blood Count 3.96 L Hemoglobin 11.0 L Hematocrit 35.3 L Mean Corpuscular 89.1 Volume Mean Corpuscular 27.8 L Hemoglobin Mean Corpuscular 31.2 L Hemoglobin Concent Red Cell 13.2 Distribution Width Platelet Count 330 Mean Platelet Volume 10.9 H Immature 3.200 H Granulocytes % Neutrophils % 72.4 Lymphocytes % 14.4 L Monocytes % 6.2 Eosinophils % 3.2 Basophils % 0.6 Nucleated Red Blood 0.0 Cells % Immature 0.260 H Granulocytes # Neutrophils # 5.9 Lymphocytes # 1.2 Monocytes # 0.5 Eosinophils # 0.3 Basophils # 0.1 Nucleated Red Blood 0.0 Cells # Sodium Level 142 Potassium Level 4.3 Chloride Level 105 Carbon Dioxide Level 32 H Anion Gap 5 Blood Urea Nitrogen 33 H Creatinine 0.81 Est Glomerular Filtrat Rate mL/min Glucose Level 209 Calcium Level 9.0 Phosphorus Level 3.4 Magnesium Level 2.1 Total Bilirubin 0.3 Direct Bilirubin 0.00 Indirect Bilirubin 0.3 Aspartate Amino 80 H Transf (AST/SGOT) Alanine 83 H Aminotransferase (AL T/SGPT) Alkaline Phosphatase 106 Total Protein 6.4 Albumin 3.2 L Globulin 3.20 Albumin/Globulin 1.00 Ratio Bedside Glucose 186 Medications Medication Current Medications Atorvastatin Calcium (Lipitor) 80 mg HS PO Last administered on 10/01/18at 20:28; Admin Dose 80 MG; Start 09/23/18 at 21:00 Aspirin (Halfprin) 81 mg DAILY PO Last administered on 10/01/18at 08:20; Admin Dose 81 MG; Start 09/24/18 at 09:00 IV Flush (NS 3 ml) 3 ml PER PROTOCOL IV ; Start 09/23/18 at 13:00 Lorazepam (Ativan) 0.5 mg Q8H PRN PO .ANXIETY Last administered on 09/26/18at 13:26; Admin Dose 0.5 MG; Start 09/23/18 at 13:00 Ondansetron HCl (Zofran Inj) 4 mg Q6H PRN IV NAUSEA/VOMITING; Start 09/23/18 at 13:00 Acetaminophen (Tylenol Tab) 650 mg Q6H PRN PO .PAIN 1-3 OR TEMP Last adminis tered on 09/29/18at 23:01; Admin Dose 650 MG; Start 09/23/18 at 13:00 Zolpidem Tartrate (Ambien) 5 mg QHS PRN PO .INSOMNIA; Start 09/23/18 at 13:00 Docusate Sodium (Colace) 100 mg Q12H PRN PO .CONSTIPATION; Start 09/23/18 at 13:00 Magnesium Hydroxide (Milk Of Mag) 30 ml DAILY PRN PO .CONSTIPATION; Start 09/23/18 at 13:00 Miscellaneous Information 1 ea NOTE XX ; Start 09/23/18 at 13:30 Glucose (Glutose) 15 gm Q15M PRN PO DECREASED GLUCOSE; Start 09/23/18 at 13:30 Glucose (Glutose) 22.5 gm Q15M PRN PO DECREASED GLUCOSE; Start 09/23/18 at 13:30 Dextrose (D50w Syringe) 25 ml Q15M PRN IV DECREASED GLUCOSE; Start 09/23/18 at 13:30 Dextrose (D50w Syringe) 50 ml Q15M PRN IV DECREASED GLUCOSE; Start 09/23/18 at 13:30 Glucagon (Glucagen) 1 mg Q15M PRN IM DECREASED GLUCOSE; Start 09/23/18 at 13:30 Glucose (Glutose) 15 gm Q15M PRN BUCCAL DECREASED GLUCOSE; Start 09/23/18 at 13:30 Levofloxacin/ Dextrose 100 ml @ 100 mls/hr Q48H IVPB Last administered on 09/30/18at 10:13; Admin Dose 100 MLS/HR; Start 09/24/18 at 09:30 Enoxaparin Sodium (Lovenox) 75 mg Q24H SC Last administered on 10/01/18 13:30; Admin Dose 75 MG; Start 09/26/18 at 13:00 Lidocaine (Lidoderm) 1 patch DAILY TD Last administered on 10/01/18 08:21; Admin Dose 1 PATCH; Start 09/26/18 at 12:00 Vancomycin HCl (Vanco Iv Per Pharmacy) VANCOMYCIN PER PHARMACY PER PROTOCOL XX ; Start 09/26/18 at 09:30; Stop 10/02/18 at 23:59 Lorazepam (Ativan) 0.5 mg Q4H PRN IV ANXIETY Last administered on 09/29/18 23:01; Admin Dose 0.5 MG; Start 09/26/18 at 19:30 Metoprolol Tartrate (Lopressor) 50 mg BID PO Last administered on 10/01/18 20:28; Admin Dose 50 MG; Start 09/27/18 at 21:00 Felodipine (Plendil) 2.5 mg DAILY PO Last administered on 10/01/18 08:20; Admin Dose 2.5 MG; Start 09/29/18 at 09:00 Aztreonam 2 gm/ Sodium Chloride 100 ml @ 100 mls/hr Q12 IVPB Last administered on 10/01/18 20:28; Admin Dose 100 MLS/HR; Start 09/28/18 at 21:00 Famotidine (Pepcid) 20 mg DAILY PO Last administered on 10/01/18 08:20; Admin Dose 20 MG; Start 09/30/18 at 09:00 Vancomycin HCl 1.25 gm/Sodium Chloride 250 ml @ 83.333 mls/ hr Q24H IVPB Last administered on 10/02/18 05:43; Admin Dose 83.333 MLS/HR; Start 09/30/18 at 06:00; Stop 10/02/18 at 23:59 Furosemide (Lasix) 40 mg DAILY@0600 IV Last administered on 10/02/18 05:43; Admin Dose 40 MG; Start 10/01/18 at 09:00 Guaifenesin/ Codeine Phosphate (Robitussin Ac Liquid Cup) 5 ml Q4H PRN PO COUGH Last administered on 10/02/18 05:58; Admin Dose 5 ML; Start 10/01/18 at 10:30 Insulin Aspart (Novolog Insulin Pen) NOVOLOG *MODERATE* ALGORITHM WITH MEALS BEDTIME SC Last administered on 10/01/18 21:13; Admin Dose 2 UNIT; Start 10/01/18 at 11:30 Diagnostic Test (Pha) (Accu-Chek) 1 ea 02 XX Last administered on 10/02/18 02:20; Admin Dose 1 EA; Start 10/02/18 at 02:00 Eye Lubricant (Artificial Tears Oph) 2 drop PRN PRN BOTH EYES DRY EYES Last administered on 10/02/18 05:51; Admin Dose 2 DROP; Start 10/01/18 at 18:30 DONNA GENTILE Oct 02, 2018 08:58
--- NOTE | 2018-10-02 09:02 | PN ---
Date/Time of Note Date/Time of Note DATE: 10/02/18 TIME: 08:56 SUBJECTIVE: Patient feeling better still on high flow oxygen is bringing up productive sputum. Chart, medications and laboratory studies reviewed. Refuses intubation despite recommendations from pulmonary. Review of systems Not obtainable reliably with patient somewhat dyspneic with the patient on high flow oxygen on BiPAP. OBJECTIVE: Vital signs please see chart. HEENT; no JVD, no HJR, carotids 2 over 4+ without bruits. Patient with BiPAP on. Chest: Difficult exam no wheezes or rhonchi. Cardiac: S4, S1, S2 with normal physiologic splitting, 2/6 early to mid peaking systolic ejection murmur, no rub click or diastolic murmur noted. Abdominal: Bowel sounds positive, soft nontender, no abdominal bruit noted, no hepatosplenomegaly. Extremities: No cyanosis, clubbing, or edema. Negative Homans sign or palpable cords. Pulses: 2/4 pulses diffusely no bruits noted. LABORATORY STUDIES; Anemia hemoglobin 11, hematocrit 35.3 normal white count and platelets, normal electrolytes bun 33 creatinine 0.8, magnesium 2.1, phosphate 3.4, AST and ALT mildly elevated at 80 and 83 respectively. Chest x-ray from yesterday the revealed diffuse pulmonary infiltrates continued, calcified aortic knob. Telemetry sinus rhythm in the 90s no further atrial fibrillation. ASSESSMENT: 1. Multi lobar probable right lung pneumonia possible ARDS. 2. Non-ST elevation myocardial infarction. 3. Hypertension. 4. Type 2 diabetes. 5. Mild to moderate aortic stenosis. 6. Acute diastolic heart failure. 7. Gout. 8. Normocytic anemia. 9. Hyperlipidemia. 10. Acute respiratory failure probably multifactorial secondary to pneumonia and concomitant heart failure. 11. History of breast cancer. 12. Renal insufficiency. 13. Mildly elevated liver tests. 14. Transient atrial fibrillation 2 days ago no recurrence. At this time patient perhaps is some mild improvement but clearly needs aggressive diuresis as well as pulmonary toilet and antibiotics. Discussed case with pulmonary as well as Dr. Portillo from nephrology. Would continue aggressive IV diuresis, metoprolol, Lovenox, aspirin Lipitor and aspirin. Will be available as needed over the weekend however will follow-up next week hopefully patient improved and can proceed with angiography. PLAN: 1. Continue aggressive diuresis agree with Dr. Portillo increase Lasix to 40 IV twice daily till renal function starts to deteriorate. 2. Follow laboratory studies and chest x-ray. 3. Continue metoprolol aspirin statin antibiotics and pulmonary toilet. 4. We will be available as needed over the weekend, will follow up on Saturday hopefully patient's pulmonary status improved and can proceed with angiography. ANTONIETA KEE MD Oct 02, 2018 09:02
--- NOTE | 2018-10-02 09:22 | PN ---
Date/Time of Note Date/Time of Note DATE: 10/02/18 TIME: 09:16 Assessment/Plan VTE Prophylaxis Risk score (from Ns)>0 risk: 12 SCD applied (from Ns): Yes Pharmacological prophylaxis: LMWH Lines/Catheters IV [facility] Type [facility]from [facility] Peripheral IV Urinary Cath still in place: Yes Reason Cath still needed: urinary retention Assessment/Plan Hospital Course 1. Congestive heart failure /pneumonia. She is improved clinically. She is receiving broad-spectrum antibiotics for pneumonia as she has an elevated pro calcitonin level . She is getting regular diuretics as she is also in congestive heart failure. Chest x-ray is pending for this morning. I did have a discussion with pulmonary and with cardiology this morning to decide on medical treatment. We all agreed that she should have more diuresis. 2. Renal failure. Her serum creatinine is normal and stable. She has been in negative fluid balance the last 4 days but when compared to her input she is not putting out enough urine. I am going to discontinue Lasix and start a Bumex drip. 3. Respiratory failure . She is now off BiPAP and on high flow oxygen. She is getting BiPAP at night. 4. Elevated troponin levels being seen by cardiology 5. History of hypertension 6. Type 2 diabetes mellitus, blood sugars have been high. I am going to start her on a dose of Lantus in addition to the sliding scale Humalog coverage. 7. Iron deficiency anemia. Patient is on course of Ferrlicit, IV iron replacement. Her hemoglobin has been increasing. 8. Atrial fibrillation, she has now converted to sinus rhythm.. Result Diagram: 10/02/18 0554 10/02/18 0554 Results 24hrs Laboratory Tests Test 10/01/18 11:33 10/01/18 17:29 10/01/18 21:10 10/02/18 02:14 Bedside Glucose 216 180 227 H 193 Test 10/02/18 05:54 10/02/18 08:41 White Blood Count 8.2 Red Blood Count 3.96 L Hemoglobin 11.0 L Hematocrit 35.3 L Mean Corpuscular 89.1 Volume Mean Corpuscular 27.8 L Hemoglobin Mean Corpuscular 31.2 L Hemoglobin Concent Red Cell 13.2 Distribution Width Platelet Count 330 Mean Platelet Volume 10.9 H Immature 3.200 H Granulocytes % Neutrophils % 72.4 Lymphocytes % 14.4 L Monocytes % 6.2 Eosinophils % 3.2 Basophils % 0.6 Nucleated Red Blood 0.0 Cells % Immature 0.260 H Granulocytes # Neutrophils # 5.9 Lymphocytes # 1.2 Monocytes # 0.5 Eosinophils # 0.3 Basophils # 0.1 Nucleated Red Blood 0.0 Cells # Sodium Level 142 Potassium Level 4.3 Chloride Level 105 Carbon Dioxide Level 32 H Anion Gap 5 Blood Urea Nitrogen 33 H Creatinine 0.81 Est Glomerular Filtrat Rate mL/min Glucose Level 209 Calcium Level 9.0 Phosphorus Level 3.4 Magnesium Level 2.1 Total Bilirubin 0.3 Direct Bilirubin 0.00 Indirect Bilirubin 0.3 Aspartate Amino 80 H Transf (AST/SGOT) Alanine 83 H Aminotransferase (AL T/SGPT) Alkaline Phosphatase 106 Total Protein 6.4 Albumin 3.2 L Globulin 3.20 Albumin/Globulin 1.00 Ratio Bedside Glucose 186 Subjective 24 Hr Interval Summary Free Text/Dictation This patient is being seen in the intensive care unit. She is awake and alert. She now has on a high flow nasal cannula. She is eating breakfast. Her niece is in the room with her. Patient continues to have a congested cough and shortness of breath. Respiratory: cough, shortness of breath Gastrointestinal: no complaints Genitourinary: no complaints Musculoskeletal: no complaints Skin: no complaints Exam/Review of Systems Exam Vitals Vital Signs Date Temp Pulse Resp B/P (MAP) Pulse Ox O2 O2 Flow FiO2 Time Delivery Rate 10/02/18 78 08:00 10/02/18 33 154/63 89 High Flow 06:01 (93) Non Rebreather 10/02/18 100 04:05 10/02/18 98.3 04:01 10/02/18 15.0 03:50 Intake and Output 10/01/18 10/01/18 10/02/18 1515:00 23:00 07:00 IntakeIntake Total 850 ml 660 ml 90 ml OutputOutput Total 900 ml 500 ml 350 ml BalanceBalance -50 ml 160 ml -260 ml Constitutional: alert, oriented, frail Respiratory: congested cough, crackles/rales Cardiovascular: regular rate and rhythm Gastrointestinal: soft, non-tender Results Results 24hrs Laboratory Tests Test 10/01/18 11:33 10/01/18 17:29 10/01/18 21:10 10/02/18 02:14 Bedside Glucose 216 180 227 H 193 Test 10/02/18 05:54 10/02/18 08:41 White Blood Count 8.2 Red Blood Count 3.96 L Hemoglobin 11.0 L Hematocrit 35.3 L Mean Corpuscular 89.1 Volume Mean Corpuscular 27.8 L Hemoglobin Mean Corpuscular 31.2 L Hemoglobin Concent Red Cell 13.2 Distribution Width Platelet Count 330 Mean Platelet Volume 10.9 H Immature 3.200 H Granulocytes % Neutrophils % 72.4 Lymphocytes % 14.4 L Monocytes % 6.2 Eosinophils % 3.2 Basophils % 0.6 Nucleated Red Blood 0.0 Cells % Immature 0.260 H Granulocytes # Neutrophils # 5.9 Lymphocytes # 1.2 Monocytes # 0.5 Eosinophils # 0.3 Basophils # 0.1 Nucleated Red Blood 0.0 Cells # Sodium Level 142 Potassium Level 4.3 Chloride Level 105 Carbon Dioxide Level 32 H Anion Gap 5 Blood Urea Nitrogen 33 H Creatinine 0.81 Est Glomerular Filtrat Rate mL/min Glucose Level 209 Calcium Level 9.0 Phosphorus Level 3.4 Magnesium Level 2.1 Total Bilirubin 0.3 Direct Bilirubin 0.00 Indirect Bilirubin 0.3 Aspartate Amino 80 H Transf (AST/SGOT) Alanine 83 H Aminotransferase (AL T/SGPT) Alkaline Phosphatase 106 Total Protein 6.4 Albumin 3.2 L Globulin 3.20 Albumin/Globulin 1.00 Ratio Bedside Glucose 186 Medications Medication Current Medications Atorvastatin Calcium (Lipitor) 80 mg HS PO Last administered on 10/01/18at 20:28; Admin Dose 80 MG; Start 09/23/18 at 21:00 Aspirin (Halfprin) 81 mg DAILY PO Last administered on 10/02/18at 08:43; Admin Dose 81 MG; Start 09/24/18 at 09:00 IV Flush (NS 3 ml) 3 ml PER PROTOCOL IV ; Start 09/23/18 at 13:00 Lorazepam (Ativan) 0.5 mg Q8H PRN PO .ANXIETY Last administered on 09/26/18at 13:26; Admin Dose 0.5 MG; Start 09/23/18 at 13:00 Ondansetron HCl (Zofran Inj) 4 mg Q6H PRN IV NAUSEA/VOMITING; Start 09/23/18 at 13:00 Acetaminophen (Tylenol Tab) 650 mg Q6H PRN PO .PAIN 1-3 OR TEMP Last adminis tered on 09/29/18at 23:01; Admin Dose 650 MG; Start 09/23/18 at 13:00 Zolpidem Tartrate (Ambien) 5 mg QHS PRN PO .INSOMNIA; Start 09/23/18 at 13:00 Docusate Sodium (Colace) 100 mg Q12H PRN PO .CONSTIPATION; Start 09/23/18 at 13:00 Magnesium Hydroxide (Milk Of Mag) 30 ml DAILY PRN PO .CONSTIPATION; Start 09/23/18 at 13:00 Miscellaneous Information 1 ea NOTE XX ; Start 09/23/18 at 13:30 Glucose (Glutose) 15 gm Q15M PRN PO DECREASED GLUCOSE; Start 09/23/18 at 13:30 Glucose (Glutose) 22.5 gm Q15M PRN PO DECREASED GLUCOSE; Start 09/23/18 at 13:30 Dextrose (D50w Syringe) 25 ml Q15M PRN IV DECREASED GLUCOSE; Start 09/23/18 at 13:30 Dextrose (D50w Syringe) 50 ml Q15M PRN IV DECREASED GLUCOSE; Start 09/23/18 at 13:30 Glucagon (Glucagen) 1 mg Q15M PRN IM DECREASED GLUCOSE; Start 09/23/18 at 13:30 Glucose (Glutose) 15 gm Q15M PRN BUCCAL DECREASED GLUCOSE; Start 09/23/18 at 13:30 Levofloxacin/ Dextrose 100 ml @ 100 mls/hr Q48H IVPB Last administered on 09/30/18at 10:13; Admin Dose 100 MLS/HR; Start 09/24/18 at 09:30 Enoxaparin Sodium (Lovenox) 75 mg Q24H SC Last administered on 10/01/18at 13:30; Admin Dose 75 MG; Start 09/26/18 at 13:00 Lidocaine (Lidoderm) 1 patch DAILY TD Last administered on 10/02/18at 08:44; Admin Dose 1 PATCH; Start 09/26/18 at 12:00 Vancomycin HCl (Vanco Iv Per Pharmacy) VANCOMYCIN PER PHARMACY PER PROTOCOL XX ; Start 09/26/18 at 09:30; Stop 10/02/18 at 23:59 Lorazepam (Ativan) 0.5 mg Q4H PRN IV ANXIETY Last administered on 09/29/18at 23:01; Admin Dose 0.5 MG; Start 09/26/18 at 19:30 Metoprolol Tartrate (Lopressor) 50 mg BID PO Last administered on 10/02/18 08:43; Admin Dose 50 MG; Start 09/27/18 at 21:00 Felodipine (Plendil) 2.5 mg DAILY PO Last administered on 10/02/18 08:43; Admin Dose 2.5 MG; Start 09/29/18 at 09:00 Aztreonam 2 gm/ Sodium Chloride 100 ml @ 100 mls/hr Q12 IVPB Last administered on 10/01/18 20:28; Admin Dose 100 MLS/HR; Start 09/28/18 at 21:00 Famotidine (Pepcid) 20 mg DAILY PO Last administered on 10/02/18 08:43; Admin Dose 20 MG; Start 09/30/18 at 09:00 Vancomycin HCl 1.25 gm/Sodium Chloride 250 ml @ 83.333 mls/ hr Q24H IVPB Last administered on 10/02/18 05:43; Admin Dose 83.333 MLS/HR; Start 09/30/18 at 06:00; Stop 10/02/18 at 23:59 Furosemide (Lasix) 40 mg DAILY@0600 IV Last administered on 10/02/18 05:43; Admin Dose 40 MG; Start 10/01/18 at 09:00 Guaifenesin/ Codeine Phosphate (Robitussin Ac Liquid Cup) 5 ml Q4H PRN PO COUGH Last administered on 10/02/18 05:58; Admin Dose 5 ML; Start 10/01/18 at 10:30 Insulin Aspart (Novolog Insulin Pen) NOVOLOG *MODERATE* ALGORITHM WITH MEALS BEDTIME SC Last administered on 10/02/18 08:57; Admin Dose 2 UNIT; Start 10/01/18 at 11:30 Diagnostic Test (Pha) (Accu-Chek) 1 ea 02 XX Last administered on 10/02/18 02:20; Admin Dose 1 EA; Start 10/02/18 at 02:00 Eye Lubricant (Artificial Tears Oph) 2 drop PRN PRN BOTH EYES DRY EYES Last administered on 10/02/18 05:51; Admin Dose 2 DROP; Start 10/01/18 at 18:30 Insulin Glargine (Lantus) 10 units DAILY@0800 SC ; Start 10/02/18 at 09:30 Bumetanide 12 mg/ Dextrose/Water 120 ml @ 10 mls/hr Q12H ONCE IV ; Start 10/02/18 at 09:30; Stop 10/02/18 at 21:29; Status GENARO FERNANDEZ MD Oct 02, 2018 09:22
[2018-10-02] MEDS: LEVOFLOXACIN 500MG/D5W (PMX) 100 ML IVPB SCH (09:23)
[2018-10-02] MEDS: AZTREONAM 2 GM in SOD CHLORIDE 0.9% 100 ML IVPB SCH (09:23)
[2018-10-02] MEDS ORDERED: BUMETANIDE 12 MG in DEXTROSE 5% 72 ML IV ONE (10:00)
[2018-10-02] MEDS: INSULIN GLARGINE [LANTus] (100 UNITS/ML) SYG SC SCH (11:27)
--- NOTE | 2018-10-02 12:55 | CONS ---
Assessment/Plan Assessment/Plan Hospital Course (Demo Recall) 1) CHF, r/o pneumonia on levo/aztreanom since 09/24 check procalcitonin and if <0.25 to d/c aztreanom pt did not have some coryza before her CP and SOB so a viral etiology is possible, will order viral pcr of nares no sputum production so no cx possible but nasal for MRSA was neg of noted WBC normalized prior to start of antibiotics pt is anxious to get off biPAP so that she can drink fluids 09/26 - procalcitonin was elevated, c/w with a bacterial lung process continue with levo/aztreanom at present pt starting to bring up phlegm will order resp culture to repeat procalcitonin 09/27 - vanco was added by pulmonary yesterday, not clear for the reason (decreasing procalcitonin and normal WBC, no fever and neg MRSA screen) currently on levo/aztreanom/vanco CXR this a.m. shows more pulmonary edema and BNP is higher I will order swallow eval for patient sputum cx is normal respiratory radha to date I will sign off on case, pulmonary is managing the antibiotics 10/02 - asked to see pt again slow improvement with CXR and clinically procalcitonin is neg now, to repeat in a.m. d/c vanco/aztreanom and continue with levaquin but change to daily dosing at 250 mg check BNP in a.m. too start stool softener (no stools since admission but just started to eat yes terday 2) increase in LFT's this is much improved, likely it represented liver congestion due to heart failure 3) DM this rapidly improved since admission Consultation Date/Type/Reason Admit Date/Time Sep 23, 2018 at 07:08 Initial Consult Date 09/25/18 Type of Consult ID Date/Time of Note DATE: 10/02/18 TIME: 12:50 24 HR Interval Summary Free Text/Dictation asked to see pt again by Dr. Portillo pt states breathing is a little better whitish phlegm at times no N, V no BM since admission Exam/Review of Systems Exam Vitals Vital Signs Date Temp Pulse Resp B/P (MAP) Pulse Ox O2 O2 Flow FiO2 Time Delivery Rate 10/02/18 81 12:00 10/02/18 23 89 High Flow 09:00 10/02/18 98.3 08:00 10/02/18 100 04:05 10/02/18 15.0 03:50 Intake and Output 10/01/18 10/01/18 10/02/18 1515:00 23:00 07:00 IntakeIntake Total 850 ml 660 ml 90 ml OutputOutput Total 900 ml 500 ml 550 ml BalanceBalance -50 ml 160 ml -460 ml Constitutional: alert, oriented Respiratory: other (bibasilar rales) Cardiovascular: regular rate and rhythm Gastrointestinal: soft, non-tender Results Result Diagram: 10/02/18 0554 10/02/18 0554 Results 24hrs Laboratory Tests Test 10/01/18 17:29 10/01/18 21:10 10/02/18 02:14 10/02/18 05:54 Bedside Glucose 180 227 H 193 White Blood Count 8.2 Red Blood Count 3.96 L Hemoglobin 11.0 L Hematocrit 35.3 L Mean Corpuscular 89.1 Volume Mean Corpuscular 27.8 L Hemoglobin Mean Corpuscular 31.2 L Hemoglobin Concent Red Cell 13.2 Distribution Width Platelet Count 330 Mean Platelet Volume 10.9 H Immature 3.200 H Granulocytes % Neutrophils % 72.4 Lymphocytes % 14.4 L Monocytes % 6.2 Eosinophils % 3.2 Basophils % 0.6 Nucleated Red Blood 0.0 Cells % Immature 0.260 H Granulocytes # Neutrophils # 5.9 Lymphocytes # 1.2 Monocytes # 0.5 Eosinophils # 0.3 Basophils # 0.1 Nucleated Red Blood 0.0 Cells # Sodium Level 142 Potassium Level 4.3 Chloride Level 105 Carbon Dioxide Level 32 H Anion Gap 5 Blood Urea Nitrogen 33 H Creatinine 0.81 Est Glomerular Filtrat Rate mL/min Glucose Level 209 Calcium Level 9.0 Phosphorus Level 3.4 Magnesium Level 2.1 Total Bilirubin 0.3 Direct Bilirubin 0.00 Indirect Bilirubin 0.3 Aspartate Amino 80 H Transf (AST/SGOT) Alanine 83 H Aminotransferase (AL T/SGPT) Alkaline Phosphatase 106 Total Protein 6.4 Albumin 3.2 L Globulin 3.20 Albumin/Globulin 1.00 Ratio Test 10/02/18 08:41 10/02/18 11:25 Bedside Glucose 186 193 Medications Medication Current Medications Atorvastatin Calcium (Lipitor) 80 mg HS PO Last administered on 10/01/18at 20:28; Admin Dose 80 MG; Start 09/23/18 at 21:00 Aspirin (Halfprin) 81 mg DAILY PO Last administered on 10/02/18at 08:43; Admin Dose 81 MG; Start 09/24/18 at 09:00 IV Flush (NS 3 ml) 3 ml PER PROTOCOL IV ; Start 09/23/18 at 13:00 Lorazepam (Ativan) 0.5 mg Q8H PRN PO .ANXIETY Last administered on 09/26/18at 13:26; Admin Dose 0.5 MG; Start 09/23/18 at 13:00 Ondansetron HCl (Zofran Inj) 4 mg Q6H PRN IV NAUSEA/VOMITING; Start 09/23/18 at 13:00 Acetaminophen (Tylenol Tab) 650 mg Q6H PRN PO .PAIN 1-3 OR TEMP Last administered on 09/29/18at 23:01; Admin Dose 650 MG; Start 09/23/18 at 13:00 Zolpidem Tartrate (Ambien) 5 mg QHS PRN PO .INSOMNIA; Start 09/23/18 at 13:00 Docusate Sodium (Colace) 100 mg Q12H PRN PO .CONSTIPATION; Start 09/23/18 at 13:00 Magnesium Hydroxide (Milk Of Mag) 30 ml DAILY PRN PO .CONSTIPATION; Start 09/23/18 at 13:00 Miscellaneous Information 1 ea NOTE XX ; Start 09/23/18 at 13:30 Glucose (Glutose) 15 gm Q15M PRN PO DECREASED GLUCOSE; Start 09/23/18 at 13:30 Glucose (Glutose) 22.5 gm Q15M PRN PO DECREASED GLUCOSE; Start 09/23/18 at 13:30 Dextrose (D50w Syringe) 25 ml Q15M PRN IV DECREASED GLUCOSE; Start 09/23/18 at 13:30 Dextrose (D50w Syringe) 50 ml Q15M PRN IV DECREASED GLUCOSE; Start 09/23/18 at 13:30 Glucagon (Glucagen) 1 mg Q15M PRN IM DECREASED GLUCOSE; Start 09/23/18 at 13:30 Glucose (Glutose) 15 gm Q15M PRN BUCCAL DECREASED GLUCOSE; Start 09/23/18 at 13:30 Enoxaparin Sodium (Lovenox) 75 mg Q24H SC Last administered on 10/01/18at 13:30; Admin Dose 75 MG; Start 09/26/18 at 13:00 Lidocaine (Lidoderm) 1 patch DAILY TD Last administered on 10/02/18 08:44; Admin Dose 1 PATCH; Start 09/26/18 at 12:00 Lorazepam (Ativan) 0.5 mg Q4H PRN IV ANXIETY Last administered on 09/29/18 23:01; Admin Dose 0.5 MG; Start 09/26/18 at 19:30 Metoprolol Tartrate (Lopressor) 50 mg BID PO Last administered on 10/02/18 08:43; Admin Dose 50 MG; Start 09/27/18 at 21:00 Felodipine (Plendil) 2.5 mg DAILY PO Last administered on 10/02/18 08:43; Admin Dose 2.5 MG; Start 09/29/18 at 09:00 Aztreonam 2 gm/ Sodium Chloride 100 ml @ 100 mls/hr Q12 IVPB Last administered on 10/02/18 09:23; Admin Dose 100 MLS/HR; Start 09/28/18 at 21:00 Famotidine (Pepcid) 20 mg DAILY PO Last administered on 10/02/18 08:43; Admin Dose 20 MG; Start 09/30/18 at 09:00 Guaifenesin/ Codeine Phosphate (Robitussin Ac Liquid Cup) 5 ml Q4H PRN PO COUGH Last administered on 10/02/18 11:28; Admin Dose 5 ML; Start 10/01/18 at 10:30 Insulin Aspart (Novolog Insulin Pen) NOVOLOG *MODERATE* ALGORITHM WITH MEALS BEDTIME SC Last administered on 10/02/18 11:28; Admin Dose 4 UNIT; Start 10/01/18 at 11:30 Diagnostic Test (Pha) (Accu-Chek) 1 ea 02 XX Last administered on 10/02/18 02:20; Admin Dose 1 EA; Start 10/02/18 at 02:00 Eye Lubricant (Artificial Tears Oph) 2 drop PRN PRN BOTH EYES DRY EYES Last administered on 10/02/18 05:51; Admin Dose 2 DROP; Start 10/01/18 at 18:30 Insulin Glargine (Lantus) 10 units DAILY@0800 SC Last administered on 10/02/18 11:27; Admin Dose 10 UNITS; Start 10/02/18 at 09:30 Bumetanide 12 mg/ Dextrose/Water 120 ml @ 10 mls/hr Q12H ONCE IV ; Start 09/14 at 10:00; Stop 10/02/18 at 21:59 Levofloxacin/ Dextrose 50 ml @ 50 mls/hr Q24H IVPB ; Start 10/03/18 at 09:00 HARPREET HALE MD Oct 02, 2018 12:55
[2018-10-02] MEDS: ENOXAPARIN 80 MG/0.8 ML SYG SC SCH (13:21)
[2018-10-02] MEDS: DOCUSATE SODIUM 100 MG CAP PO SCH ×2 (14:37→20:34)
[2018-10-02] MEDS: ATORVASTATIN 80 MG TAB PO SCH (20:34)
[2018-10-02] MEDS ORDERED: POTASSIUM CHLORIDE (SR) 10 MEQ TAB PO ONE (22:30)
[2018-10-03] VITALS (24 sets, daily range): BP systolic 65–145; BP diastolic 34–105; PULSE 68–90; RESP 18–29
[2018-10-03] MEDS: ACCUCHECK AT 2AM (Patients on SS coverage) XX SCH (01:45)
[2018-10-03] MEDS: GUAIFENESIN/CODEINE 5ML CUP PO PRN (05:30)
--- NOTE | 2018-10-03 06:37 | CONS ---
Assessment/Plan Assessment/Plan Hospital Course (Demo Recall) 1) CHF, r/o pneumonia on levo/aztreanom since 09/24 check procalcitonin and if <0.25 to d/c aztreanom pt did not have some coryza before her CP and SOB so a viral etiology is possible, will order viral pcr of nares no sputum production so no cx possible but nasal for MRSA was neg of noted WBC normalized prior to start of antibiotics pt is anxious to get off biPAP so that she can drink fluids 09/26 - procalcitonin was elevated, c/w with a bacterial lung process continue with levo/aztreanom at present pt starting to bring up phlegm will order resp culture to repeat procalcitonin 09/27 - vanco was added by pulmonary yesterday, not clear for the reason (decreasing procalcitonin and normal WBC, no fever and neg MRSA screen) currently on levo/aztreanom/vanco CXR this a.m. shows more pulmonary edema and BNP is higher I will order swallow eval for patient sputum cx is normal respiratory radha to date I will sign off on case, pulmonary is managing the antibiotics 10/02 - asked to see pt again slow improvement with CXR and clinically procalcitonin is neg now, to repeat in a.m. d/c vanco/aztreanom and continue with levaquin but change to daily dosing at 250mg check BNP in a.m. too start stool softener (no stools since admission but just started to eat yesterday) 10/03 - continue with levaquin alone but change to po form pt is eating and had a solid stool await a.m. labs 2) increase in LFT's this is much improved, likely it represented liver congestion due to heart failure 3) DM this rapidly improved since admission Consultation Date/Type/Reason Admit Date/Time Sep 23, 2018 at 07:08 Initial Consult Date 09/25/18 Type of Consult ID Date/Time of Note DATE: 10/03/18 TIME: 06:34 24 HR Interval Summary Free Text/Dictation pt avoided biPAP overnight no N, V she had a solid stool overnight breathing is a bit better Exam/Review of Systems Exam Vitals Vital Signs Date Temp Pulse Resp B/P (MAP) Pulse Ox O2 O2 Flow FiO2 Time Delivery Rate 10/03/18 98.4 81 20 133/50 97 High Flow 06:00 (77) 10/03/18 90 05:58 10/02/18 15.0 03:50 Intake and Output 10/02/18 10/02/18 10/03/18 1515:00 23:00 07:00 IntakeIntake Total 960 ml 540 ml 360 ml OutputOutput Total 1840 ml 1600 ml 318 ml BalanceBalance -880 ml -1060 ml 42 ml Constitutional: alert, oriented Eyes: nl sclera ENMT: mucosa pink and moist Respiratory: other (bibasilar rales and coarse rhonchi) Cardiovascular: regular rate and rhythm Gastrointestinal: soft, non-tender Results Result Diagram: 10/02/18 0554 10/02/18 1916 Results 24hrs Laboratory Tests Test 10/02/18 08:41 10/02/18 11:25 10/02/18 17:41 10/02/18 19:16 Bedside Glucose 186 193 153 Potassium Level 3.7 Test 10/02/18 20:33 10/03/18 01:45 Bedside Glucose 249 H 220 Medications Medication Current Medications Atorvastatin Calcium (Lipitor) 80 mg HS PO Last administered on 10/02/18at 20:34; Admin Dose 80 MG; Start 09/23/18 at 21:00 Aspirin (Halfprin) 81 mg DAILY PO Last administered on 10/02/18at 08:43; Admin D ose 81 MG; Start 09/24/18 at 09:00 IV Flush (NS 3 ml) 3 ml PER PROTOCOL IV ; Start 09/23/18 at 13:00 Lorazepam (Ativan) 0.5 mg Q8H PRN PO .ANXIETY Last administered on 09/26/18at 13:26; Admin Dose 0.5 MG; Start 09/23/18 at 13:00 Ondansetron HCl (Zofran Inj) 4 mg Q6H PRN IV NAUSEA/VOMITING; Start 09/23/18 at 13:00 Acetaminophen (Tylenol Tab) 650 mg Q6H PRN PO .PAIN 1-3 OR TEMP Last administered on 09/29/18at 23:01; Admin Dose 650 MG; Start 09/23/18 at 13:00 Zolpidem Tartrate (Ambien) 5 mg QHS PRN PO .INSOMNIA; Start 09/23/18 at 13:00 Docusate Sodium (Colace) 100 mg Q12H PRN PO .CONSTIPATION; Start 09/23/18 at 13:00 Magnesium Hydroxide (Milk Of Mag) 30 ml DAILY PRN PO .CONSTIPATION; Start 09/23/18 at 13:00 Miscellaneous Information 1 ea NOTE XX ; Start 09/23/18 at 13:30 Glucose (Glutose) 15 gm Q15M PRN PO DECREASED GLUCOSE; Start 09/23/18 at 13:30 Glucose (Glutose) 22.5 gm Q15M PRN PO DECREASED GLUCOSE; Start 09/23/18 at 13:30 Dextrose (D50w Syringe) 25 ml Q15M PRN IV DECREASED GLUCOSE; Start 09/23/18 at 13:30 Dextrose (D50w Syringe) 50 ml Q15M PRN IV DECREASED GLUCOSE; Start 09/23/18 at 13:30 Glucagon (Glucagen) 1 mg Q15M PRN IM DECREASED GLUCOSE; Start 09/23/18 at 13:30 Glucose (Glutose) 15 gm Q15M PRN BUCCAL DECREASED GLUCOSE; Start 09/23/18 at 13:30 Enoxaparin Sodium (Lovenox) 75 mg Q24H SC Last administered on 10/02/18at 13:21; Admin Dose 75 MG; Start 09/26/18 at 13:00 Lidocaine (Lidoderm) 1 patch DAILY TD Last administered on 10/02/18at 08:44; Admin Dose 1 PATCH; Start 09/26/18 at 12:00 Lorazepam (Ativan) 0.5 mg Q4H PRN IV ANXIETY Last administered on 09/29/18at 23:01; Admin Dose 0.5 MG; Start 09/26/18 at 19:30 Metoprolol Tartrate (Lopressor) 50 mg BID PO Last administered on 10/02/18at 20:35; Admin Dose 50 MG; Start 09/27/18 at 21:00 Felodipine (Plendil) 2.5 mg DAILY PO Last administered on 10/02/18at 08:43; Admin Dose 2.5 MG; Start 09/29/18 at 09:00 Famotidine (Pepcid) 20 mg DAILY PO Last administered on 10/02/18at 08:43; Admin Dose 20 MG; Start 09/30/18 at 09:00 Guaifenesin/ Codeine Phosphate (Robitussin Ac Liquid Cup) 5 ml Q4H PRN PO COUGH Last administered on 10/03/18 05:30; Admin Dose 5 ML; Start 10/01/18 at 10:30 Insulin Aspart (Novolog Insulin Pen) NOVOLOG *MODERATE* ALGORITHM WITH MEALS BEDTIME SC Last administered on 10/02/18 20:36; Admin Dose 6 UNIT; Start 10/01/18 at 11:30 Diagnostic Test (Pha) (Accu-Chek) 1 ea 02 XX Last administered on 10/02/18 02:20; Admin Dose 1 EA; Start 10/02/18 at 02:00 Eye Lubricant (Artificial Tears Oph) 2 drop PRN PRN BOTH EYES DRY EYES Last administered on 10/02/18 05:51; Admin Dose 2 DROP; Start 10/01/18 at 18:30 Insulin Glargine (Lantus) 10 units DAILY@0800 SC Last administered on 10/02/18 11:27; Admin Dose 10 UNITS; Start 10/02/18 at 09:30 Levofloxacin/ Dextrose 50 ml @ 50 mls/hr Q24H IVPB ; Start 10/03/18 at 09:00 Docusate Sodium (Colace) 100 mg BID PO Last administered on 10/02/18 20:34; Admin Dose 100 MG; Start 10/02/18 at 13:00 HARPREET HALE MD Oct 03, 2018 06:37
[2018-10-03] MEDS: INSULIN ASPART [NOVOLOG] 3 ML PEN SC SCH ×4 (07:50→20:32)
[2018-10-03] MEDS: INSULIN GLARGINE [LANTus] (100 UNITS/ML) SYG SC SCH (07:51)
[2018-10-03] MEDS: METOPROLOL 50 MG TAB PO SCH ×2 (08:24→20:30)
[2018-10-03] MEDS: LIDOCAINE 5% PATCH TD SCH (08:24)
[2018-10-03] MEDS: ASPIRIN (EC) 81 MG TAB PO SCH (08:24)
[2018-10-03] MEDS: DOCUSATE SODIUM 100 MG CAP PO SCH ×2 (08:25→20:30)
[2018-10-03] MEDS: FAMOTIDINE 20 MG TAB PO SCH (08:25)
[2018-10-03] MEDS: LEVOFLOXACIN 250MG/D5W (PMX) 50 ML IVPB SCH (08:25)
[2018-10-03] MEDS: FELODIPINE (ER) 2.5 MG TAB PO SCH (08:25)
--- NOTE | 2018-10-03 09:03 | CONS ---
Assessment/Plan Assessment/Plan Assessment/Plan (Daily) Chest x-ray showing improvement in bilateral pneumonia however right lower lobe and left perihilar and left upper lobe infiltrates are persistent. Assessment and recommendations; 1. Patient admitted with hypoxemic respiratory failure due to combination of severe bilateral extremity acquired pneumonia possibly infectious/post infectious with clinical and radiological improvement now. 2. History of diabetes and hypertension. 3. NSTEMI., However echocardiogram showing only stage II diastolic dysfunction. Patient's blood pressure is very well controlled. Continue current supportive care. Monitor renal function. Agree with continuation of Levaquin only at this point. I did have a detailed discussion with the patient's nephew and niece at bedside as well as the patient herself and answered all their questions. Consultation Date/Type/Reason Admit Date/Time Sep 23, 2018 at 07:08 Initial Consult Date 09/25/18 Type of Consult Pulmonary/critical care Patient is an 88-year-old lady who was brought into the emergency room yesterday with a 2-day history of increasing shortness of breath and chest pressure. Upon evaluation patient had mild elevation of troponins as well as elevation in BNP level. Chest x-ray showed pulmonary edema, patient has been transferred to ICU and started on BiPAP. Patient also has been on Bumex drip with adequate urine output. Patient reports very little improvement in symptoms of shortness of breath since yesterday. Denies any further chest pain, complains of scant cough with production of clear sputum. Denies any fever chills any body aches or myalgias. According to her she was fine until 2 days ago when the symptoms started. Past medical history; 1. History of hypertension and diabetes. Medications; reviewed. Allergies; penicillin. Social history; patient never smoked. Family history; she is a . Occupational history; noncontributory. Review of systems; complains of cough with mild shortness of breath. Denies any abdominal pain, nausea vomiting. Any fever chills. Patient is on BiPAP therefore a limited review of systems could be obtained. General exam; elderly lady, on BiPAP. Awake and alert. Currently no distress. Date/Time of Note DATE: 10/03/18 TIME: 09:00 24 HR Interval Summary Free Text/Dictation Patient's condition is tenuous but improved. Denies any chest pain, wheezing, complains of cough and chest congestion. General exam; elderly woman, awake alert, currently in no distress. On high flow nasal cannula at 90% FiO2' Patient having breakfast on bed. Exam/Review of Systems Exam Vitals Vital Signs Date Temp Pulse Resp B/P (MAP) Pulse Ox O2 O2 Flow FiO2 Time Delivery Rate 10/03/18 98.4 81 20 133/50 97 High Flow 06:00 (77) 10/03/18 90 05:58 10/02/18 15.0 03:50 Intake and Output 10/02/18 10/02/18 10/03/18 1414:59 22:59 06:59 IntakeIntake Total 950 ml 550 ml 360 ml OutputOutput Total 1700 ml 1874 ml 384 ml BalanceBalance -750 ml -1324 ml -24 ml Exam H EENT exam; supple neck, no JVD. No lymphadenopathy. Midline trachea. No thy romegaly. Patient has fair dentition. Pupils are small bilaterally. Chest exam; mild bilateral scattered crackles. S1-S2 audible, no murmurs. Regular rhythm. Abdomen exam; soft, no organomegaly. Nontender. Bowel sounds audible. Extremity exam; no peripheral edema clubbing. [employer] exam; no focal deficit. Results Result Diagram: 10/02/18 0554 10/02/18 1916 Results 24hrs Laboratory Tests Test 10/02/18 11:25 10/02/18 17:41 10/02/18 19:16 10/02/18 20:33 Bedside Glucose 193 153 249 H Potassium Level 3.7 Test 10/03/18 01:45 10/03/18 05:37 10/03/18 07:48 Bedside Glucose 220 169 B-Type Natriuretic 3040 H Peptide Procalcitonin 0.14 H Medications Medication Current Medications Atorvastatin Calcium (Lipitor) 80 mg HS PO Last administered on 10/02/18at 20:34; Admin Dose 80 MG; Start 09/23/18 at 21:00 Aspirin (Halfprin) 81 mg DAILY PO Last administered on 10/03/18at 08:24; Admin Dose 81 MG; Start 09/24/18 at 09:00 IV Flush (NS 3 ml) 3 ml PER PROTOCOL IV ; Start 09/23/18 at 13:00 Lorazepam (Ativan) 0.5 mg Q8H PRN PO .ANXIETY Last administered on 09/26/18at 13:26; Admin Dose 0.5 MG; Start 09/23/18 at 13:00 Ondansetron HCl (Zofran Inj) 4 mg Q6H PRN IV NAUSEA/VOMITING; Start 09/23/18 at 13:00 Acetaminophen (Tylenol Tab) 650 mg Q6H PRN PO .PAIN 1-3 OR TEMP Last administered on 09/29/18at 23:01; Admin Dose 650 MG; Start 09/23/18 at 13:00 Zolpidem Tartrate (Ambien) 5 mg QHS PRN PO .INSOMNIA; Start 09/23/18 at 13:00 Docusate Sodium (Colace) 100 mg Q12H PRN PO .CONSTIPATION; Start 09/23/18 at 13:00 Magnesium Hydroxide (Milk Of Mag) 30 ml DAILY PRN PO .CONSTIPATION; Start 09/23/18 at 13:00 Miscellaneous Information 1 ea NOTE XX ; Start 09/23/18 at 13:30 Glucose (Glutose) 15 gm Q15M PRN PO DECREASED GLUCOSE; Start 09/23/18 at 13:30 Glucose (Glutose) 22.5 gm Q15M PRN PO DECREASED GLUCOSE; Start 09/23/18 at 13:30 Dextrose (D50w Syringe) 25 ml Q15M PRN IV DECREASED GLUCOSE; Start 09/23/18 at 13:30 Dextrose (D50w Syringe) 50 ml Q15M PRN IV DECREASED GLUCOSE; Start 09/23/18 at 13:30 Glucagon (Glucagen) 1 mg Q15M PRN IM DECREASED GLUCOSE; Start 09/23/18 at 13:30 Glucose (Glutose) 15 gm Q15M PRN BUCCAL DECREASED GLUCOSE; Start 09/23/18 at 13:30 Enoxaparin Sodium (Lovenox) 75 mg Q24H SC Last administered on 10/02/18at 13:21; Admin Dose 75 MG; Start 09/26/18 at 13:00 Lidocaine (Lidoderm) 1 patch DAILY TD Last administered on 10/03/18at 08:24; Admin Dose 1 PATCH; Start 09/26/18 at 12:00 Lorazepam (Ativan) 0.5 mg Q4H PRN IV ANXIETY Last administered on 09/29/18at 23:01; Admin Dose 0.5 MG; Start 09/26/18 at 19:30 Metoprolol Tartrate (Lopressor) 50 mg BID PO Last administered on 10/03/18 08:24; Admin Dose 50 MG; Start 09/27/18 at 21:00 Felodipine (Plendil) 2.5 mg DAILY PO Last administered on 10/03/18 08:25; Admin Dose 2.5 MG; Start 09/29/18 at 09:00 Famotidine (Pepcid) 20 mg DAILY PO Last administered on 10/03/18 08:25; Admin Dose 20 MG; Start 09/30/18 at 09:00 Guaifenesin/ Codeine Phosphate (Robitussin Ac Liquid Cup) 5 ml Q4H PRN PO COUGH Last administered on 10/03/18 05:30; Admin Dose 5 ML; Start 10/01/18 at 10:30 Insulin Aspart (Novolog Insulin Pen) NOVOLOG *MODERATE* ALGORITHM WITH MEALS BEDTIME SC Last administered on 10/03/18 07:50; Admin Dose 2 UNIT; Start 10/01/18 at 11:30 Diagnostic Test (Pha) (Accu-Chek) 1 ea 02 XX Last administered on 10/02/18 02:20; Admin Dose 1 EA; Start 10/02/18 at 02:00 Eye Lubricant (Artificial Tears Oph) 2 drop PRN PRN BOTH EYES DRY EYES Last administered on 10/02/18 05:51; Admin Dose 2 DROP; Start 10/01/18 at 18:30 Insulin Glargine (Lantus) 10 units DAILY@0800 SC Last administered on 10/03/18 07:51; Admin Dose 10 UNITS; Start 10/02/18 at 09:30 Levofloxacin/ Dextrose 50 ml @ 50 mls/hr Q24H IVPB Last administered on 10/03/18 08:25; Admin Dose 50 MLS/HR; Start 10/03/18 at 09:00 Docusate Sodium (Colace) 100 mg BID PO Last administered on 10/03/18 08:25; Admin Dose 100 MG; Start 10/02/18 at 13:00 DONNA GENTILE Oct 03, 2018 09:03
--- NOTE | 2018-10-03 09:15 | PN ---
Date/Time of Note Date/Time of Note DATE: 10/03/18 TIME: 09:13 SUBJECTIVE: Patient feeling better still on high flow oxygen is bringing up productive sputum. Chart, medications and laboratory studies reviewed. Review of systems Not obtainable reliably with patient somewhat dyspneic with the patient on high flow oxygen . OBJECTIVE: Vital signs please see chart. HEENT; no JVD, no HJR, carotids 2 over 4+ without bruits. Chest: Difficult exam no wheezes or rhonchi. Cardiac: S4, S1, S2 with normal physiologic splitting, 2/6 early to mid peaking systolic ejection murmur, no rub click or diastolic murmur noted. Abdominal: Bowel sounds positive, soft nontender, no abdominal bruit noted, no hepatosplenomegaly. Extremities: No cyanosis, clubbing, or edema. Negative Homans sign or palpable cords. Pulses: 2/4 pulses diffusely no bruits noted. LABORATORY STUDIES; Laboratory studies pending. Chest x-ray revealed cardiomegaly, calcified aortic knob, clearing of infiltra clay but left upper lobe and right lower lobe infiltrate persist possibly consistent with multilobar pneumonia. Telemetry sinus rhythm in the 90s no further atrial fibrillation. ASSESSMENT: 1. Multi lobar probable multi lobar pneumonia possible ARDS. 2. Non-ST elevation myocardial infarction. 3. Hypertension. 4. Type 2 diabetes. 5. Mild to moderate aortic stenosis. 6. Acute diastolic heart failure. 7. Gout. 8. Normocytic anemia. 9. Hyperlipidemia. 10. Acute respiratory failure probably multifactorial secondary to pneumonia and concomitant heart failure. 11. History of breast cancer. 12. Renal insufficiency. 13. Mildly elevated liver tests. 14. Transient atrial fibrillation 3 days ago no recurrence. At this time patient perhaps is some mild improvement but clearly needs continued aggressive diuresis as well as pulmonary toilet and antibiotics. Discussed case with pulmonary as well as Dr. Portillo from nephrology. Would continue aggressive IV diuresis, metoprolol, Lovenox, aspirin Lipitor and aspirin. Will be available as needed over the weekend however will follow-up next week hopefully patient improved and can proceed with angiography. PLAN: 1. Continue aggressive diuresis agree with Dr. Portillo increase Lasix to 40 IV twice daily till renal function starts to deteriorate. 2. Follow laboratory studies and chest x-ray. 3. Continue metoprolol aspirin statin antibiotics and pulmonary toilet. 4. We will be available as needed over the weekend, will follow up on Saturday hopefully patient's pulmonary status improved and can proceed with angiography. ANTONIETA KEE MD Oct 03, 2018 09:15
--- NOTE | 2018-10-03 09:23 | PN ---
Date/Time of Note Date/Time of Note DATE: 10/03/18 TIME: 09: Assessment/Plan VTE Prophylaxis Risk score (from [facility] [place])>0 risk: 8 SCD applied (from [facility] [place]): Yes Pharmacological prophylaxis: LMWH Pharm contraindication: other Lines/Catheters IV Catheter Type (from [facility]): Peripheral IV Urinary Cath still in place: Yes Reason Cath still needed: urinary retention Assessment/Plan Hospital Course 1. Congestive heart failure /pneumonia. She is improved clinically. She is receiving broad-spectrum antibiotics for pneumonia as she has an elevated pro calcitonin level . I did have a discussion with pulmonary and with cardiology this morning to decide on medical treatment. We all agreed that she should have more diuresis. She received a Bumex drip yesterday and was 2 L negative. Her chest x-ray is improved but still has dense infiltrate in right lower lobe and left upper lobe. Her labs are pending for today. If her potassium is normal then I would give her another 6 hours of Bumex drip today. 2. Renal failure. Her serum creatinine is normal and stable. She has been in negative fluid balance the last 5 days but when compared to her input she is not putting out enough urine. Continue Bumex drip. 3. Respiratory failure . She is now off BiPAP and on high flow oxygen. 4. Elevated troponin levels , being seen by cardiology 5. History of hypertension 6. Type 2 diabetes mellitus, blood sugars have been high. I am going to start her on a dose of Lantus in addition to the sliding scale Humalog coverage. 7. Iron deficiency anemia. Patient is on course of Ferrlicit, IV iron replacement. Her hemoglobin has been increasing. 8. Atrial fibrillation, she has now converted to sinus rhythm.. Result Diagram: 10/02/18 0554 10/02/18 191 Results 24hrs Laboratory Tests Test 10/02/18 11:25 10/02/18 17:41 10/02/18 19:16 10/02/18 20:33 Bedside Glucose 193 153 249 H Potassium Level 3.7 Test 10/03/18 01:45 10/03/18 05:37 10/03/18 07:48 Bedside Glucose 220 169 B-Type Natriuretic 3040 H Peptide Procalcitonin 0.14 H Subjective 24 Hr Interval Summary Free Text/Dictation Mandi is being seen in the intensive care unit. She is awake and alert. She is on high flow oxygen by nasal cannula. She says she is feeling better. She still has a cough and shortness of breath. Constitutional: improved Respiratory: cough, shortness of breath Cardiovascular: no complaints Gastrointestinal: no complaints Genitourinary: no complaints Neurologic: no complaints Exam/Review of Systems Exam Vitals Vital Signs Date Temp Pulse Resp B/P (MAP) Pulse Ox O2 O2 Flow FiO2 Time Delivery Rate 10/03/18 98.4 81 20 133/50 97 High Flow 06:00 (77) 10/03/18 90 05:58 10/02/18 15.0 03:50 Intake and Output 10/02/18 10/02/18 10/03/18 1515:00 23:00 07:00 IntakeIntake Total 960 ml 540 ml 360 ml OutputOutput Total 1840 ml 1600 ml 318 ml BalanceBalance -880 ml -1060 ml 42 ml Constitutional: alert, oriented, frail Respiratory: congested cough, crackles/rales Cardiovascular: regular rate and rhythm Gastrointestinal: soft, non-tender Musculoskeletal: nl extremities to inspection Results Results 24hrs Laboratory Tests Test 10/02/18 11:25 10/02/18 17:41 10/02/18 19:16 10/02/18 20:33 Bedside Glucose 193 153 249 H Potassium Level 3.7 Test 10/03/18 01:45 10/03/18 05:37 10/03/18 07:48 Bedside Glucose 220 169 B-Type Natriuretic 3040 H Peptide Procalcitonin 0.14 H Medications Medication Current Medications Atorvastatin Calcium (Lipitor) 80 mg HS PO Last administered on 10/02/18at 20:34; Admin Dose 80 MG; Start 09/23/18 at 21:00 Aspirin (Halfprin) 81 mg DAILY PO Last administered on 10/03/18at 08:24; Admin Dose 81 MG; Start 09/24/18 at 09:00 IV Flush (NS 3 ml) 3 ml PER PROTOCOL IV ; Start 09/23/18 at 13:00 Lorazepam (Ativan) 0.5 mg Q8H PRN PO .ANXIETY Last administered on 09/26/18at 13:26; Admin Dose 0.5 MG; Start 09/23/18 at 13:00 Ondansetron HCl (Zofran Inj) 4 mg Q6H PRN IV NAUSEA/VOMITING; Start 09/23/18 at 13:00 Acetaminophen (Tylenol Tab) 650 mg Q6H PRN PO .PAIN 1-3 OR TEMP Last administered on 09/29/18at 23:01; Admin Dose 650 MG; Start 09/23/18 at 13:00 Zolpidem Tartrate (Ambien) 5 mg QHS PRN PO .INSOMNIA; Start 09/23/18 at 13:00 Docusate Sodium (Colace) 100 mg Q12H PRN PO .CONSTIPATION; Start 09/23/18 at 13:00 Magnesium Hydroxide (Milk Of Mag) 30 ml DAILY PRN PO .CONSTIPATION; Start 09/23/18 at 13:00 Miscellaneous Information 1 ea NOTE XX ; Start 09/23/18 at 13:30 Glucose (Glutose) 15 gm Q15M PRN PO DECREASED GLUCOSE; Start 09/23/18 at 13:30 Glucose (Glutose) 22.5 gm Q15M PRN PO DECREASED GLUCOSE; Start 09/23/18 at 13:30 Dextrose (D50w Syringe) 25 ml Q15M PRN IV DECREASED GLUCOSE; Start 09/23/18 at 13:30 Dextrose (D50w Syringe) 50 ml Q15M PRN IV DECREASED GLUCOSE; Start 09/23/18 at 13:30 Glucagon (Glucagen) 1 mg Q15M PRN IM DECREASED GLUCOSE; Start 09/23/18 at 13:30 Glucose (Glutose) 15 gm Q15M PRN BUCCAL DECREASED GLUCOSE; Start 09/23/18 at 13:30 Enoxaparin Sodium (Lovenox) 75 mg Q24H SC Last administered on 10/02/18at 13:21; Admin Dose 75 MG; Start 09/26/18 at 13:00 Lidocaine (Lidoderm) 1 patch DAILY TD Last administered on 10/03/18at 08:24; Admin Dose 1 PATCH; Start 09/26/18 at 12:00 Lorazepam (Ativan) 0.5 mg Q4H PRN IV ANXIETY Last administered on 09/29/18at 23:01; Admin Dose 0.5 MG; Start 09/26/18 at 19:30 Metoprolol Tartrate (Lopressor) 50 mg BID PO Last administered on 10/03/18at 08:24; Admin Dose 50 MG; Start 09/27/18 at 21:00 Felodipine (Plendil) 2.5 mg DAILY PO Last administered on 10/03/18 08:25; Admin Dose 2.5 MG; Start 09/29/18 at 09:00 Famotidine (Pepcid) 20 mg DAILY PO Last administered on 10/03/18 08:25; Admin Dose 20 MG; Start 09/30/18 at 09:00 Guaifenesin/ Codeine Phosphate (Robitussin Ac Liquid Cup) 5 ml Q4H PRN PO COUGH Last administered on 10/03/18 05:30; Admin Dose 5 ML; Start 10/01/18 at 10:30 Insulin Aspart (Novolog Insulin Pen) NOVOLOG *MODERATE* ALGORITHM WITH MEALS BEDTIME SC Last administered on 10/03/18 07:50; Admin Dose 2 UNIT; Start 10/01/18 at 11:30 Diagnostic Test (Pha) (Accu-Chek) 1 ea 02 XX Last administered on 10/02/18 02:20; Admin Dose 1 EA; Start 10/02/18 at 02:00 Eye Lubricant (Artificial Tears Oph) 2 drop PRN PRN BOTH EYES DRY EYES Last administered on 10/02/18 05:51; Admin Dose 2 DROP; Start 10/01/18 at 18:30 Insulin Glargine (Lantus) 10 units DAILY@0800 SC Last administered on 10/03/18 07:51; Admin Dose 10 UNITS; Start 10/02/18 at 09:30 Levofloxacin/ Dextrose 50 ml @ 50 mls/hr Q24H IVPB Last administered on 10/03/18 08:25; Admin Dose 50 MLS/HR; Start 10/03/18 at 09:00 Docusate Sodium (Colace) 100 mg BID PO Last administered on 10/03/18 08:25; Admin Dose 100 MG; Start 10/02/18 at 13:00 GENARO SEPULVEDA MD Oct 03, 2018 09:23
[2018-10-03] MEDS ORDERED: POTASSIUM CHLORIDE (SR) 10 MEQ TAB PO ONE (11:00)
[2018-10-03] MEDS ORDERED: BUMETANIDE 6 MG in DEXTROSE 5% 36 ML IV ONE (11:30)
[2018-10-03] MEDS: ENOXAPARIN 80 MG/0.8 ML SYG SC SCH (12:28)
[2018-10-03] MEDS: ARTIFICIAL TEARS 15 ML OPH BOTH EYES PRN (13:41)
[2018-10-03] MEDS: ATORVASTATIN 80 MG TAB PO SCH (20:30)
[2018-10-04] VITALS (24 sets, daily range): BP systolic 98–157; BP diastolic 34–85; PULSE 72–91; RESP 11–30
[2018-10-04] MEDS: GUAIFENESIN/CODEINE 5ML CUP PO PRN ×3 (00:11→21:32)
[2018-10-04] MEDS: ACCUCHECK AT 2AM (Patients on SS coverage) XX SCH (01:57)
--- NOTE | 2018-10-04 08:15 | CONS ---
Assessment/Plan Assessment/Plan Assessment/Plan (Daily) Patient is currently on high flow nasal cannula at 60% FiO2 30 L/min. Chest x-ray from today is pending. Assessment and recommendations; 1. Patient admitted with severe hypoxemic respiratory failure due to severe bilateral pneumonia with superimposed pulmonary edema with significant clinical and radiological improvement now. 2. NSTEMI. 3. History of diabetes and hypertension. Continue current supportive care. Patient likely will need coronary angiography sometime early next week. Consultation Date/Type/Reason Admit Date/Time Sep 23, 2018 at 07:08 Initial Consult Date 09/25/18 Type of Consult Pulmonary/critical care Patient is an 88-year-old lady who was brought into the emergency room yesterday with a 2-day history of increasing shortness of breath and chest pressure. Upon evaluation patient had mild elevation of troponins as well as elevation in BNP level. Chest x-ray showed pulmonary edema, patient has been transferred to ICU and started on BiPAP. Patient also has been on Bumex drip with adequate urine output. Patient reports very little improvement in symptoms of shortness of breath since yesterday. Denies any further chest pain, complains of scant cough with production of clear sputum. Denies any fever chills any body aches or myalgias. According to her she was fine until 2 days ago when the symptoms started. Past medical history; 1. History of hypertension and diabetes. Medications; reviewed. Allergies; penicillin. Social history; patient never smoked. Family history; she is a . Occupational history; noncontributory. Review of systems; complains of cough with mild shortness of breath. Denies any abdominal pain, nausea vomiting. Any fever chills. Patient is on BiPAP therefore a limited review of systems could be obtained. General exam; elderly lady, on BiPAP. Awake and alert. Currently no distress. Date/Time of Note DATE: 10/04/18 TIME: 08:13 24 HR Interval Summary Free Text/Dictation Patient's condition is continually improving. Reports significant decrease in shortness of breath from yesterday. Also significant reduction in chest congestion and coughing. General exam; elderly woman, awake alert, currently in no distress. Exam/Review of Systems Exam Vitals Vital Signs Date Temp Pulse Resp B/P (MAP) Pulse Ox O2 O2 Flow FiO2 Time Delivery Rate 10/04/18 95 60 05:00 6/22/19 84 24 154/54 High Flow 05:00 (87) 10/04/18 98.7 00:00 10/02/18 15.0 03:50 Intake and Output 10/03/18 10/03/18 10/04/18 1515:00 23:00 07:00 IntakeIntake Total 473 ml 557 ml 240 ml OutputOutput Total 270 ml 1778 ml 262 ml BalanceBalance 203 ml -1221 ml -22 ml Exam H ENT exam; supple neck, no JVD. No lymphadenopathy. Midline trachea. No thyromegaly. Patient has fair dentition. No neck masses. Chest exam; minimal bilateral scattered crackles. S1-S2 audible, no murmurs. Regular rhythm. Abdomen exam; soft, nontender. No organomegaly. Bowel sounds audible. Extremity exam; no peripheral edema clubbing. [employer] exam; no focal deficit. Results Result Diagram: 10/04/18 0447 10/04/187 Results 24hrs Laboratory Tests Test 10/03/18 12:23 10/03/18 17:27 10/03/18 20:28 10/04/18 01:55 Bedside Glucose 171 166 236 H 149 Test 10/04/18 04:47 White Blood Count 9.2 Red Blood Count 3.25 L Hemoglobin 9.0 L Hematocrit 28.7 L Mean Corpuscular 88.3 Volume Mean Corpuscular 27.7 L Hemoglobin Mean Corpuscular 31.4 L Hemoglobin Concent Red Cell 13.3 Distribution Width Platelet Count 263 # Mean Platelet Volume 11.6 H Immature 2.100 H Granulocytes % Neutrophils % 70.4 Lymphocytes % 16.7 Monocytes % 7.1 Eosinophils % 3.3 Basophils % 0.4 Nucleated Red Blood 0.0 Cells % Immature 0.190 H Granulocytes # Neutrophils # 6.5 Lymphocytes # 1.5 Monocytes # 0.7 Eosinophils # 0.3 Basophils # 0.0 Nucleated Red Blood 0.0 Cells # Sodium Level 142 Potassium Level 4.1 Chloride Level 100 Carbon Dioxide Level 33 H Anion Gap 9 Blood Urea Nitrogen 32 H Creatinine 0.94 Est Glomerular Filtrat Rate mL/min Glucose Level 150 Calcium Level 9.0 Phosphorus Level 3.5 Magnesium Level 1.8 Total Bilirubin 0.3 Direct Bilirubin 0.00 Indirect Bilirubin 0.3 Aspartate Amino 87 H Transf (AST/SGOT) Alanine 105 H Aminotransferase (AL T/SGPT) Alkaline Phosphatase 89 Total Protein 5.6 L Albumin 2.9 L Globulin 2.70 Albumin/Globulin 1.07 Ratio Medications Medication Current Medications Atorvastatin Calcium (Lipitor) 80 mg HS PO Last administered on 10/03/18at 20:30; Admin Dose 80 MG; Start 09/23/18 at 21:00 Aspirin (Halfprin) 81 mg DAILY PO Last administered on 10/03/18at 08:24; Admin Dose 81 MG; Start 09/24/18 at 09:00 IV Flush (NS 3 ml) 3 ml PER PROTOCOL IV ; Start 09/23/18 at 13:00 Lorazepam (Ativan) 0.5 mg Q8H PRN PO .ANXIETY Last administered on 09/26/18at 13:26; Admin Dose 0.5 MG; Start 09/23/18 at 13:00 Ondansetron HCl (Zofran Inj) 4 mg Q6H PRN IV NAUSEA/VOMITING; Start 09/23/18 at 13:00 Acetaminophen (Tylenol Tab) 650 mg Q6H PRN PO .PAIN 1-3 OR TEMP Last administered on 09/29/18at 23:01; Admin Dose 650 MG; Start 09/23/18 at 13:00 Zolpidem Tartrate (Ambien) 5 mg QHS PRN PO .INSOMNIA; Start 09/23/18 at 13:00 Docusate Sodium (Colace) 100 mg Q12H PRN PO .CONSTIPATION; Start 09/23/18 at 13:00 Magnesium Hydroxide (Milk Of Mag) 30 ml DAILY PRN PO .CONSTIPATION; Start 09/23/18 at 13:00 Miscellaneous Information 1 ea NOTE XX ; Start 09/23/18 at 13:30 Glucose (Glutose) 15 gm Q15M PRN PO DECREASED GLUCOSE; Start 09/23/18 at 13:30 Glucose (Glutose) 22.5 gm Q15M PRN PO DECREASED GLUCOSE; Start 09/23/18 at 13:30 Dextrose (D50w Syringe) 25 ml Q15M PRN IV DECREASED GLUCOSE; Start 09/23/18 at 13:30 Dextrose (D50w Syringe) 50 ml Q15M PRN IV DECREASED GLUCOSE; Start 09/23/18 at 13:30 Glucagon (Glucagen) 1 mg Q15M PRN IM DECREASED GLUCOSE; Start 09/23/18 at 13:30 Glucose (Glutose) 15 gm Q15M PRN BUCCAL DECREASED GLUCOSE; Start 09/23/18 at 13:30 Enoxaparin Sodium (Lovenox) 75 mg Q24H SC Last administered on 10/03/18 12:28; Admin Dose 75 MG; Start 09/26/18 at 13:00 Lidocaine (Lidoderm) 1 patch DAILY TD Last administered on 10/03/18 08:24; Admin Dose 1 PATCH; Start 09/26/18 at 12:00 Lorazepam (Ativan) 0.5 mg Q4H PRN IV ANXIETY Last administered on 09/29/18 23:01; Admin Dose 0.5 MG; Start 09/26/18 at 19:30 Metoprolol Tartrate (Lopressor) 50 mg BID PO Last administered on 10/03/18 20:30; Admin Dose 50 MG; Start 09/27/18 at 21:00 Felodipine (Plendil) 2.5 mg DAILY PO Last administered on 10/03/18 08:25; Admin Dose 2.5 MG; Start 09/29/18 at 09:00 Famotidine (Pepcid) 20 mg DAILY PO Last administered on 10/03/18 08:25; Admin Dose 20 MG; Start 09/30/18 at 09:00 Guaifenesin/ Codeine Phosphate (Robitussin Ac Liquid Cup) 5 ml Q4H PRN PO COUGH Last administered on 10/04/18 00:11; Admin Dose 5 ML; Start 10/01/18 at 10:30 Insulin Aspart (Novolog Insulin Pen) NOVOLOG *MODERATE* ALGORITHM WITH MEALS BEDTIME SC Last administered on 10/03/18 20:32; Admin Dose 6 UNIT; Start 10/01/18 at 11:30 Diagnostic Test (Pha) (Accu-Chek) 1 ea 02 XX Last administered on 10/02/18 02:20; Admin Dose 1 EA; Start 10/02/18 at 02:00 Eye Lubricant (Artificial Tears Oph) 2 drop PRN PRN BOTH EYES DRY EYES Last administered on 10/03/18 13:41; Admin Dose 2 DROP; Start 10/01/18 at 18:30 Insulin Glargine (Lantus) 10 units DAILY@0800 SC Last administered on 10/03/18 07:51; Admin Dose 10 UNITS; Start 10/02/18 at 09:30 Levofloxacin/ Dextrose 50 ml @ 50 mls/hr Q24H IVPB Last administered on 10/03/18 08:25; Admin Dose 50 MLS/HR; Start 10/03/18 at 09:00 Docusate Sodium (Colace) 100 mg BID PO Last administered on 10/03/18 20:30; Admin Dose 100 MG; Start 10/02/18 at 13:00 DONNA GENTILE Oct 04, 2018 08:15
[2018-10-04] MEDS: INSULIN GLARGINE [LANTus] (100 UNITS/ML) SYG SC SCH (08:17)
[2018-10-04] MEDS: INSULIN ASPART [NOVOLOG] 3 ML PEN SC SCH ×4 (08:17→21:47)
[2018-10-04] MEDS: LEVOFLOXACIN 250MG/D5W (PMX) 50 ML IVPB SCH (09:04)
[2018-10-04] MEDS: LIDOCAINE 5% PATCH TD SCH (09:04)
[2018-10-04] MEDS: FAMOTIDINE 20 MG TAB PO SCH (09:05)
[2018-10-04] MEDS: FELODIPINE (ER) 2.5 MG TAB PO SCH (09:05)
[2018-10-04] MEDS: DOCUSATE SODIUM 100 MG CAP PO SCH ×2 (09:05→20:19)
[2018-10-04] MEDS: ASPIRIN (EC) 81 MG TAB PO SCH (09:05)
[2018-10-04] MEDS: METOPROLOL 50 MG TAB PO SCH ×2 (09:05→20:21)
[2018-10-04] MEDS: BUMETANIDE 1 MG INJ IV SCH ×2 (09:42→17:48)
--- NOTE | 2018-10-04 09:57 | PN ---
Date/Time of Note Date/Time of Note DATE: 10/04/18 TIME: 09:53 Assessment/Plan VTE Prophylaxis Risk score (from Ns)>0 risk: 8 SCD applied (from Ns): Yes Pharmacological prophylaxis: LMWH Lines/Catheters IV Catheter Type (from Nrs): Saline Lock Urinary Cath still in place: Yes Reason Cath still needed: urinary retention Assessment/Plan Hospital Course 1. Acute Respiratory Failure with Hypoxia 2/2 Congestive heart failure /pneumonia - on High flow currently. - improving, net negative 1L yesterday - Bumex IV 1mg BID today with goal net negative 1-2L - f/u BNP and procal tomorrow - cont levaquin only for now 2. Renal failure. - cont diuresis as above and monitor creatinine 3. Elevated troponin levels , being seen by cardiology 4. History of hypertension 5. Type 2 diabetes mellitus - started on lantus. 6. Iron deficiency anemia. cont IV iron replacement. 7. Atrial fibrillation, she has now converted to sinus rhythm.. Result Diagram: 10/04/18 0447 10/04/18446 Results 24hrs Laboratory Tests Test 10/03/18 12:23 10/03/18 17:27 10/03/18 20:28 10/04/18 01:55 Bedside Glucose 171 166 236 H 149 Test 10/04/18 04:47 10/04/18 08:13 White Blood Count 9.2 Red Blood Count 3.25 L Hemoglobin 9.0 L Hematocrit 28.7 L Mean Corpuscular 88.3 Volume Mean Corpuscular 27.7 L Hemoglobin Mean Corpuscular 31.4 L Hemoglobin Concent Red Cell 13.3 Distribution Width Platelet Count 263 # Mean Platelet Volume 11.6 H Immature 2.100 H Granulocytes % Neutrophils % 70.4 Lymphocytes % 16.7 Monocytes % 7.1 Eosinophils % 3.3 Basophils % 0.4 Nucleated Red Blood 0.0 Cells % Immature 0.190 H Granulocytes # Neutrophils # 6.5 Lymphocytes # 1.5 Monocytes # 0.7 Eosinophils # 0.3 Basophils # 0.0 Nucleated Red Blood 0.0 Cells # Sodium Level 142 Potassium Level 4.1 Chloride Level 100 Carbon Dioxide Level 33 H Anion Gap 9 Blood Urea Nitrogen 32 H Creatinine 0.94 Est Glomerular Filtrat Rate mL/min Glucose Level 150 Calcium Level 9.0 Phosphorus Level 3.5 Magnesium Level 1.8 Total Bilirubin 0.3 Direct Bilirubin 0.00 Indirect Bilirubin 0.3 Aspartate Amino 87 H Transf (AST/SGOT) Alanine 105 H Aminotransferase (AL T/SGPT) Alkaline Phosphatase 89 Total Protein 5.6 L Albumin 2.9 L Globulin 2.70 Albumin/Globulin 1.07 Ratio Bedside Glucose 145 Subjective 24 Hr Interval Summary Free Text/Dictation Breathing more comfortably this AM. Still has not felt strong enough to get out of bed much. VS stable. Exam/Review of Systems Exam Vitals Vital Signs Date Temp Pulse Resp B/P (MAP) Pulse Ox O2 O2 Flow FiO2 Time Delivery Rate 10/04/18 88 08:00 10/04/18 95 60 05:00 10/04/18 24 154/54 High Flow 05:00 (87) 10/04/18 98.7 00:00 10/02/18 15.0 03:50 Intake and Output 10/03/18 10/03/18 10/04/18 1515:00 23:00 07:00 IntakeIntake Total 473 ml 557 ml 240 ml OutputOutput Total 270 ml 1778 ml 262 ml BalanceBalance 203 ml -1221 ml -22 ml Constitutional: alert, oriented, well developed Respiratory: normal air movement, diminished breath sounds Cardiovascular: regular rate and rhythm, nl pulses Gastrointestinal: soft, nl liver, spleen, non-tender Results Results 24hrs Laboratory Tests Test 10/03/18 12:23 10/03/18 17:27 10/03/18 20:28 10/04/18 01:55 Bedside Glucose 171 166 236 H 149 Test 10/04/18 04:47 10/04/18 08:13 White Blood Count 9.2 Red Blood Count 3.25 L Hemoglobin 9.0 L Hematocrit 28.7 L Mean Corpuscular 88.3 Volume Mean Corpuscular 27.7 L Hemoglobin Mean Corpuscular 31.4 L Hemoglobin Concent Red Cell 13.3 Distribution Width Platelet Count 263 # Mean Platelet Volume 11.6 H Immature 2.100 H Granulocytes % Neutrophils % 70.4 Lymphocytes % 16.7 Monocytes % 7.1 Eosinophils % 3.3 Basophils % 0.4 Nucleated Red Blood 0.0 Cells % Immature 0.190 H Granulocytes # Neutrophils # 6.5 Lymphocytes # 1.5 Monocytes # 0.7 Eosinophils # 0.3 Basophils # 0.0 Nucleated Red Blood 0.0 Cells # Sodium Level 142 Potassium Level 4.1 Chloride Level 100 Carbon Dioxide Level 33 H Anion Gap 9 Blood Urea Nitrogen 32 H Creatinine 0.94 Est Glomerular Filtrat Rate mL/min Glucose Level 150 Calcium Level 9.0 Phosphorus Level 3.5 Magnesium Level 1.8 Total Bilirubin 0.3 Direct Bilirubin 0.00 Indirect Bilirubin 0.3 Aspartate Amino 87 H Transf (AST/SGOT) Alanine 105 H Aminotransferase (AL T/SGPT) Alkaline Phosphatase 89 Total Protein 5.6 L Albumin 2.9 L Globulin 2.70 Albumin/Globulin 1.07 Ratio Bedside Glucose 145 Medications Medication Current Medications Atorvastatin Calcium (Lipitor) 80 mg HS PO Last administered on 10/03/18at 20:30; Admin Dose 80 MG; Start 09/23/18 at 21:00 Aspirin (Halfprin) 81 mg DAILY PO Last administered on 10/04/18at 09:05; Admin Dose 81 MG; Start 09/24/18 at 09:00 IV Flush (NS 3 ml) 3 ml PER PROTOCOL IV ; Start 09/23/18 at 13:00 Lorazepam (Ativan) 0.5 mg Q8H PRN PO .ANXIETY Last administered on 09/26/18at 13:26; Admin Dose 0.5 MG; Start 09/23/18 at 13:00 Ondansetron HCl (Zofran Inj) 4 mg Q6H PRN IV NAUSEA/VOMITING; Start 09/23/18 at 13:00 Acetaminophen (Tylenol Tab) 650 mg Q6H PRN PO .PAIN 1-3 OR TEMP Last administered on 09/29/18at 23:01; Admin Dose 650 MG; Start 09/23/18 at 13:00 Zolpidem Tartrate (Ambien) 5 mg QHS PRN PO .INSOMNIA; Start 09/23/18 at 13:00 Docusate Sodium (Colace) 100 mg Q12H PRN PO .CONSTIPATION; Start 09/23/18 at 13:00 Magnesium Hydroxide (Milk Of Mag) 30 ml DAILY PRN PO .CONSTIPATION; Start 09/23/18 at 13:00 Miscellaneous Information 1 ea NOTE XX ; Start 09/23/18 at 13:30 Glucose (Glutose) 15 gm Q15M PRN PO DECREASED GLUCOSE; Start 09/23/18 at 13:30 Glucose (Glutose) 22.5 gm Q15M PRN PO DECREASED GLUCOSE; Start 09/23/18 at 13:30 Dextrose (D50w Syringe) 25 ml Q15M PRN IV DECREASED GLUCOSE; Start 09/23/18 at 13:30 Dextrose (D50w Syringe) 50 ml Q15M PRN IV DECREASED GLUCOSE; Start 09/23/18 at 13:30 Glucagon (Glucagen) 1 mg Q15M PRN IM DECREASED GLUCOSE; Start 09/23/18 at 13:30 Glucose (Glutose) 15 gm Q15M PRN BUCCAL DECREASED GLUCOSE; Start 09/23/18 at 13:30 Enoxaparin Sodium (Lovenox) 75 mg Q24H SC Last administered on 10/03/18 12:28; Admin Dose 75 MG; Start 09/26/18 at 13:00 Lidocaine (Lidoderm) 1 patch DAILY TD Last administered on 10/04/18 09:04; Admin Dose 1 PATCH; Start 09/26/18 at 12:00 Lorazepam (Ativan) 0.5 mg Q4H PRN IV ANXIETY Last administered on 09/29/18 23:01; Admin Dose 0.5 MG; Start 09/26/18 at 19:30 Metoprolol Tartrate (Lopressor) 50 mg BID PO Last administered on 10/04/18 09:05; Admin Dose 50 MG; Start 09/27/18 at 21:00 Felodipine (Plendil) 2.5 mg DAILY PO Last administered on 10/04/18 09:05; Admin Dose 2.5 MG; Start 09/29/18 at 09:00 Famotidine (Pepcid) 20 mg DAILY PO Last administered on 10/04/18 09:05; Admin Dose 20 MG; Start 09/30/18 at 09:00 Guaifenesin/ Codeine Phosphate (Robitussin Ac Liquid Cup) 5 ml Q4H PRN PO COUGH Last administered on 10/04/18 00:11; Admin Dose 5 ML; Start 10/01/18 at 10:30 Insulin Aspart (Novolog Insulin Pen) NOVOLOG *MODERATE* ALGORITHM WITH MEALS BEDTIME SC Last administered on 10/04/18 08:17; Admin Dose 2 UNIT; Start 10/01/18 at 11:30 Diagnostic Test (Pha) (Accu-Chek) 1 ea 02 XX Last administered on 10/02/18 02:20; Admin Dose 1 EA; Start 10/02/18 at 02:00 Eye Lubricant (Artificial Tears Oph) 2 drop PRN PRN BOTH EYES DRY EYES Last administered on 10/03/18 13:41; Admin Dose 2 DROP; Start 10/01/18 at 18:30 Insulin Glargine (Lantus) 10 units DAILY@0800 SC Last administered on 10/04/18 08:17; Admin Dose 10 UNITS; Start 10/02/18 at 09:30 Levofloxacin/ Dextrose 50 ml @ 50 mls/hr Q24H IVPB Last administered on 10/04/18 09:04; Admin Dose 50 MLS/HR; Start 10/03/18 at 09:00 Docusate Sodium (Colace) 100 mg BID PO Last administered on 10/04/18 09:05; Admin Dose 100 MG; Start 10/02/18 at 13:00 Bumetanide (Bumex) 1 mg BID DIURETICS IV Last administered on 10/04/18 09:42; Admin Dose 1 MG; Start 10/04/18 at 09:30 DARIELA SCOTT MD Oct 04, 2018 09:57
[2018-10-04] MEDS: ARTIFICIAL TEARS 15 ML OPH BOTH EYES PRN (10:47)
[2018-10-04] MEDS: ENOXAPARIN 80 MG/0.8 ML SYG SC SCH (13:58)
[2018-10-04] MEDS: ATORVASTATIN 80 MG TAB PO SCH (20:21)
[2018-10-05] VITALS (33 sets, daily range): BP systolic 110–157; BP diastolic 44–94; PULSE 68–92; RESP 16–32
[2018-10-05] MEDS: ACCUCHECK AT 2AM (Patients on SS coverage) XX SCH (02:00)
[2018-10-05] MEDS: BUMETANIDE 1 MG INJ IV SCH (06:55)
[2018-10-05] MEDS: INSULIN ASPART [NOVOLOG] 3 ML PEN SC SCH ×4 (07:35→21:44)
--- NOTE | 2018-10-05 08:57 | CONS ---
Assessment/Plan Assessment/Plan Assessment/Plan (Daily) Assessment and recommendations; 1. Patient admitted with severe bilateral community acquired pneumonia possibly atypical. Maintained on Levaquin. 2. Some element of CHF with good response to diuretic regimen. 3. History of diabetes and hypertension. 4. Persistent hypoxemia, though improved in the interval. 5. NSTEMI. Continue current supportive care. Obtain follow-up chest x-ray 24 hours. Possible coronary angiography next week. Consultation Date/Type/Reason Admit Date/Time Sep 23, 2018 at 07:08 Initial Consult Date 09/25/18 Type of Consult Pulmonary/critical care Patient is an 88-year-old lady who was brought into the emergency room yesterday with a 2-day history of increasing shortness of breath and chest pressure. Upon evaluation patient had mild elevation of troponins as well as elevation in BNP level. Chest x-ray showed pulmonary edema, patient has been transferred to ICU and started on BiPAP. Patient also has been on Bumex drip with adequate urine output. Patient reports very little improvement in symptoms of shortness of breath since yesterday. Denies any further chest pain, complains of scant cough with production of clear sputum. Denies any fever chills any body aches or myalgias. According to her she was fine until 2 days ago when the symptoms started. Past medical history; 1. History of hypertension and diabetes. Medications; reviewed. Allergies; penicillin. Social history; patient never smoked. Family history; she is a . Occupational history; noncontributory. Review of systems; complains of cough with mild shortness of breath. Denies any abdominal pain, nausea vomiting. Any fever chills. Patient is on BiPAP therefore a limited review of systems could be obtained. General exam; elderly lady, on BiPAP. Awake and alert. Currently no distress. Date/Time of Note DATE: 10/05/18 TIME: 08:55 24 HR Interval Summary Free Text/Dictation Patient's condition is fairly stable over the last 24 hours. Patient complains of coughing and chest congestion. Denies any significant shortness of breath at rest. General exam; elderly woman, awake alert, currently in no distress. Having breakfast in bed. Exam/Review of Systems Exam Vitals Vital Signs Date Temp Pulse Resp B/P (MAP) Pulse Ox O2 O2 Flow FiO2 Time Delivery Rate 10/05/18 92 08:01 10/05/18 23 157/54 91 High Flow 05:00 (88) Nasal Cannula 10/05/18 60 04:35 10/05/18 98.1 04:00 10/02/18 15.0 03:50 Intake and Output 10/04/18 10/04/18 10/05/18 1515:00 23:00 07:00 IntakeIntake Total 250 ml 900 ml 0 ml OutputOutput Total 577 ml 615 ml 510 ml BalanceBalance -327 ml 285 ml -510 ml Exam H ENT exam; supple neck, no JVD. No lymphadenopathy. Midline trachea. No thyromegaly. Patient has fair dentition. Pupils are small bilaterally. Chest exam; diminished breath sound bilaterally with minimal bilateral crackles. S1-S2 audible, no murmurs. Regular rhythm. Abdomen exam; soft, no organomegaly. Nontender. Bowel sounds audible. Extremity exam; no peripheral edema clubbing. [employer]OL [employer] HAND exam; no focal deficit. Results Result Diagram: 10/04/18 0447 10/05/18 0430 Results 24hrs Laboratory Tests Test 10/04/18 11:51 10/04/18 17:40 10/04/18 21:45 10/05/18 02:22 Bedside Glucose 198 114 206 233 H Test 10/05/18 04:30 Sodium Level 136 Potassium Level 3.6 Chloride Level 99 Carbon Dioxide Level 32 H Anion Gap 5 Blood Urea Nitrogen 30 H Creatinine 0.76 Est Glomerular Filtrat Rate mL/min Glucose Level 192 Calcium Level 8.6 B-Type Natriuretic 2410 H Peptide Procalcitonin 0.13 H Medications Medication Current Medications Atorvastatin Calcium (Lipitor) 80 mg HS PO Last administered on 10/04/18at 20:21; Admin Dose 80 MG; Start 09/23/18 at 21:00 Aspirin (Halfprin) 81 mg DAILY PO Last administered on 10/04/18at 09:05; Admin Dose 81 MG; Start 09/24/18 at 09:00 IV Flush (NS 3 ml) 3 ml PER PROTOCOL IV ; Start 09/23/18 at 13:00 Lorazepam (Ativan) 0.5 mg Q8H PRN PO .ANXIETY Last administered on 09/26/18at 13:26; Admin Dose 0.5 MG; Start 09/23/18 at 13:00 Ondansetron HCl (Zofran Inj) 4 mg Q6H PRN IV NAUSEA/VOMITING; Start 09/23/18 at 13:00 Acetaminophen (Tylenol Tab) 650 mg Q6H PRN PO .PAIN 1-3 OR TEMP Last administered on 09/29/18at 23:01; Admin Dose 650 MG; Start 09/23/18 at 13:00 Zolpidem Tartrate (Ambien) 5 mg QHS PRN PO .INSOMNIA; Start 09/23/18 at 13:00 Docusate Sodium (Colace) 100 mg Q12H PRN PO .CONSTIPATION; Start 09/23/18 at 13:00 Magnesium Hydroxide (Milk Of Mag) 30 ml DAILY PRN PO .CONSTIPATION; Start 09/23/18 at 13:00 Miscellaneous Information 1 ea NOTE XX ; Start 09/23/18 at 13:30 Glucose (Glutose) 15 gm Q15M PRN PO DECREASED GLUCOSE; Start 09/23/18 at 13:30 Glucose (Glutose) 22.5 gm Q15M PRN PO DECREASED GLUCOSE; Start 09/23/18 at 13:30 Dextrose (D50w Syringe) 25 ml Q15M PRN IV DECREASED GLUCOSE; Start 09/23/18 at 13:30 Dextrose (D50w Syringe) 50 ml Q15M PRN IV DECREASED GLUCOSE; Start 09/23/18 at 13:30 Glucagon (Glucagen) 1 mg Q15M PRN IM DECREASED GLUCOSE; Start 09/23/18 at 13:30 Glucose (Glutose) 15 gm Q15M PRN BUCCAL DECREASED GLUCOSE; Start 09/23/18 at 13:30 Enoxaparin Sodium (Lovenox) 75 mg Q24H SC Last administered on 10/04/18at 13:58; Admin Dose 75 MG; Start 09/26/18 at 13:00 Lidocaine (Lidoderm) 1 patch DAILY TD Last administered on 10/04/18at 09:04; Admin Dose 1 PATCH; Start 09/26/18 at 12:00 Lorazepam (Ativan) 0.5 mg Q4H PRN IV ANXIETY Last administered on 09/29/18at 23:01; Admin Dose 0.5 MG; Start 09/26/18 at 19:30 Metoprolol Tartrate (Lopressor) 50 mg BID PO Last administered on 10/04/18at 20:21; Admin Dose 50 MG; Start 09/27/18 at 21:00 Felodipine (Plendil) 2.5 mg DAILY PO Last administered on 10/04/18 09:05; Admin Dose 2.5 MG; Start 09/29/18 at 09:00 Famotidine (Pepcid) 20 mg DAILY PO Last administered on 10/04/18 09:05; Admin Dose 20 MG; Start 09/30/18 at 09:00 Guaifenesin/ Codeine Phosphate (Robitussin Ac Liquid Cup) 5 ml Q4H PRN PO COUGH Last administered on 10/04/18 21:32; Admin Dose 5 ML; Start 10/01/18 at 10:30 Insulin Aspart (Novolog Insulin Pen) NOVOLOG *MODERATE* ALGORITHM WITH MEALS BEDTIME SC Last administered on 10/04/18 21:47; Admin Dose 1 UNIT; Start 10/01/18 at 11:30 Diagnostic Test (Pha) (Accu-Chek) 1 ea 02 XX Last administered on 10/05/18 02:00; Admin Dose 1 EA; Start 10/02/18 at 02:00 Eye Lubricant (Artificial Tears Oph) 2 drop PRN PRN BOTH EYES DRY EYES Last administered on 10/04/18 10:47; Admin Dose 2 DROP; Start 10/01/18 at 18:30 Insulin Glargine (Lantus) 10 units DAILY@0800 SC Last administered on 10/04/18 08:17; Admin Dose 10 UNITS; Start 10/02/18 at 09:30 Levofloxacin/ Dextrose 50 ml @ 50 mls/hr Q24H IVPB Last administered on 10/04/18 09:04; Admin Dose 50 MLS/HR; Start 10/03/18 at 09:00 Docusate Sodium (Colace) 100 mg BID PO Last administered on 10/04/18 20:19; Admin Dose 100 MG; Start 10/02/18 at 13:00 Bumetanide (Bumex) 1 mg BID DIURETICS IV Last administered on 10/05/18 06:55; Admin Dose 1 MG; Start 10/04/18 at 09:30 DONNA GENTILE Oct 05, 2018 08:57
[2018-10-05] MEDS ORDERED: POTASSIUM CHLORIDE (SR) 20 MEQ TAB PO STA (09:58)
--- NOTE | 2018-10-05 10:03 | PN ---
Date/Time of Note Date/Time of Note DATE: 10/05/18 TIME: 10:00 Assessment/Plan VTE Prophylaxis Risk score (from [facility])>0 risk: 3 SCD applied (from [facility]): Yes Pharmacological prophylaxis: LMWH Lines/Catheters IV Catheter Type (from Nrsg): Peripheral IV Urinary Cath still in place: Yes Reason Cath still needed: urinary retention Assessment/Plan Hospital Course 1. Acute Respiratory Failure with Hypoxia 2/2 Congestive heart failure /pneumonia - on High flow currently. - improving, net negative 1L yesterday - Bumex IV 1mg BID today with goal net negative 1-2L - f/u BNP and procal tomorrow - cont levaquin only for now 2. Renal failure. - cont diuresis as above and monitor creatinine 3. Elevated troponin levels , being seen by cardiology 4. History of hypertension 5. Type 2 diabetes mellitus - started on lantus. 6. Iron deficiency anemia. cont IV iron replacement. 7. Atrial fibrillation, she has now converted to sinus rhythm.. Assessment/Plan 1. Acute Respiratory Failure with Hypoxia 2/2 Congestive heart failure / pneumonia - on High flow currently. - improving, BNP down to 2400 today - increase Bumex IV to 2mg BID today with goal net negative 1-2L - trend BNP - consider d/c of Abx; await ID recs 2. Renal failure. - cont diuresis as above and monitor creatinine 3. Elevated troponin levels , being seen by cardiology 4. History of hypertension 5. Type 2 diabetes mellitus - started on lantus --> increase to 15 today as glucose still uncontrolled 6. Iron deficiency anemia. cont IV iron replacement. 7. Atrial fibrillation, she has now converted to sinus rhythm Result Diagram: 10/04/18 0447 10/05/18 0430 Results 24hrs Laboratory Tests Test 10/04/18 11:51 10/04/18 17:40 10/04/18 21:45 10/05/18 02:22 Bedside Glucose 198 114 206 233 H Test 10/05/18 04:30 Sodium Level 136 Potassium Level 3.6 Chloride Level 99 Carbon Dioxide Level 32 H Anion Gap 5 Blood Urea Nitrogen 30 H Creatinine 0.76 Est Glomerular Filtrat Rate mL/min Glucose Level 192 Calcium Level 8.6 B-Type Natriuretic 2410 H Peptide Procalcitonin 0.13 H Subjective 24 Hr Interval Summary Free Text/Dictation Feeling better slowly. Did not ambulate but did sit in chair. Oxygen requirements slowly improving. Exam/Review of Systems Exam Vitals Vital Signs Date Temp Pulse Resp B/P (MAP) Pulse Ox O2 O2 Flow FiO2 Time Delivery Rate 10/05/18 92 08:01 10/05/18 23 157/54 91 High Flow 05:00 (88) Nasal Cannula 10/05/18 60 04:35 10/05/18 98.1 04:00 10/02/18 15.0 03:50 Intake and Output 10/04/18 10/04/18 10/05/18 1515:00 23:00 07:00 IntakeIntake Total 250 ml 900 ml 0 ml OutputOutput Total 577 ml 615 ml 690 ml BalanceBalance -327 ml 285 ml -690 ml Constitutional: alert, oriented Psych: no complaints Respiratory: normal air movement, crackles/rales, diminished breath sounds Cardiovascular: regular rate and rhythm, nl pulses Gastrointestinal: soft, nl liver, spleen, non-tender, bowel sounds Results Results 24hrs Laboratory Tests Test 10/04/18 11:51 10/04/18 17:40 10/04/18 21:45 10/05/18 02:22 Bedside Glucose 198 114 206 233 H Test 10/05/18 04:30 Sodium Level 136 Potassium Level 3.6 Chloride Level 99 Carbon Dioxide Level 32 H Anion Gap 5 Blood Urea Nitrogen 30 H Creatinine 0.76 Est Glomerular Filtrat Rate mL/min Glucose Level 192 Calcium Level 8.6 B-Type Natriuretic 2410 H Peptide Procalcitonin 0.13 H Medications Medication Current Medications Atorvastatin Calcium (Lipitor) 80 mg HS PO Last administered on 10/04/18at 20:21; Admin Dose 80 MG; Start 09/23/18 at 21:00 Aspirin (Halfprin) 81 mg DAILY PO Last administered on 10/04/18at 09:05; Admin Dose 81 MG; Start 09/24/18 at 09:00 IV Flush (NS 3 ml) 3 ml PER PROTOCOL IV ; Start 09/23/18 at 13:00 Lorazepam (Ativan) 0.5 mg Q8H PRN PO .ANXIETY Last administered on 09/26/18at 13:26; Admin Dose 0.5 MG; Start 09/23/18 at 13:00 Ondansetron HCl (Zofran Inj) 4 mg Q6H PRN IV NAUSEA/VOMITING; Start 09/23/18 at 13:00 Acetaminophen (Tylenol Tab) 650 mg Q6H PRN PO .PAIN 1-3 OR TEMP Last administered on 09/29/18at 23:01; Admin Dose 650 MG; Start 09/23/18 at 13:00 Zolpidem Tartrate (Ambien) 5 mg QHS PRN PO .INSOMNIA; Start 09/23/18 at 13:00 Docusate Sodium (Colace) 100 mg Q12H PRN PO .CONSTIPATION; Start 09/23/18 at 13:00 Magnesium Hydroxide (Milk Of Mag) 30 ml DAILY PRN PO .CONSTIPATION; Start 09/23/18 at 13:00 Miscellaneous Information 1 ea NOTE XX ; Start 09/23/18 at 13:30 Glucose (Glutose) 15 gm Q15M PRN PO DECREASED GLUCOSE; Start 09/23/18 at 13:30 Glucose (Glutose) 22.5 gm Q15M PRN PO DECREASED GLUCOSE; Start 09/23/18 at 13:30 Dextrose (D50w Syringe) 25 ml Q15M PRN IV DECREASED GLUCOSE; Start 09/23/18 at 13:30 Dextrose (D50w Syringe) 50 ml Q15M PRN IV DECREASED GLUCOSE; Start 09/23/18 at 13:30 Glucagon (Glucagen) 1 mg Q15M PRN IM DECREASED GLUCOSE; Start 09/23/18 at 13:30 Glucose (Glutose) 15 gm Q15M PRN BUCCAL DECREASED GLUCOSE; Start 09/23/18 at 13:30 Enoxaparin Sodium (Lovenox) 75 mg Q24H SC Last administered on 10/04/18at 13:58; Admin Dose 75 MG; Start 09/26/18 at 13:00 Lidocaine (Lidoderm) 1 patch DAILY TD Last administered on 10/04/18at 09:04; Admin Dose 1 PATCH; Start 09/26/18 at 12:00 Lorazepam (Ativan) 0.5 mg Q4H PRN IV ANXIETY Last administered on 09/29/18at 23:01; Admin Dose 0.5 MG; Start 09/26/18 at 19:30 Metoprolol Tartrate (Lopressor) 50 mg BID PO Last administered on 10/04/18at 20:21; Admin Dose 50 MG; Start 09/27/18 at 21:00 Felodipine (Plendil) 2.5 mg DAILY PO Last administered on 10/04/18 09:05; Admin Dose 2.5 MG; Start 09/29/18 at 09:00 Famotidine (Pepcid) 20 mg DAILY PO Last administered on 10/04/18 09:05; Admin Dose 20 MG; Start 09/30/18 at 09:00 Guaifenesin/ Codeine Phosphate (Robitussin Ac Liquid Cup) 5 ml Q4H PRN PO COUGH Last administered on 10/04/18 21:32; Admin Dose 5 ML; Start 10/01/18 at 10:30 Insulin Aspart (Novolog Insulin Pen) NOVOLOG *MODERATE* ALGORITHM WITH MEALS BEDTIME SC Last administered on 10/04/18 21:47; Admin Dose 1 UNIT; Start 10/01/18 at 11:30 Diagnostic Test (Pha) (Accu-Chek) 1 ea 02 XX Last administered on 10/05/18 02:00; Admin Dose 1 EA; Start 10/02/18 at 02:00 Eye Lubricant (Artificial Tears Oph) 2 drop PRN PRN BOTH EYES DRY EYES Last administered on 10/04/18 10:47; Admin Dose 2 DROP; Start 10/01/18 at 18:30 Insulin Glargine (Lantus) 10 units DAILY@0800 SC Last administered on 10/04/18 08:17; Admin Dose 10 UNITS; Start 10/02/18 at 09:30 Levofloxacin/ Dextrose 50 ml @ 50 mls/hr Q24H IVPB Last administered on 10/04/18 09:04; Admin Dose 50 MLS/HR; Start 10/03/18 at 09:00 Docusate Sodium (Colace) 100 mg BID PO Last administered on 10/04/18 20:19; Admin Dose 100 MG; Start 10/02/18 at 13:00 Bumetanide (Bumex) 1 mg BID DIURETICS IV Last administered on 10/05/18 06:55; Admin Dose 1 MG; Start 10/04/18 at 09:30 DARIELA SCOTT MD Oct 05, 2018 10:03
[2018-10-05] MEDS: ASPIRIN (EC) 81 MG TAB PO SCH (10:47)
[2018-10-05] MEDS: METOPROLOL 50 MG TAB PO SCH ×2 (10:52→20:44)
[2018-10-05] MEDS: FAMOTIDINE 20 MG TAB PO SCH (10:52)
[2018-10-05] MEDS: DOCUSATE SODIUM 100 MG CAP PO SCH ×2 (10:52→20:44)
[2018-10-05] MEDS: LEVOFLOXACIN 250MG/D5W (PMX) 50 ML IVPB SCH (10:53)
[2018-10-05] MEDS: FELODIPINE (ER) 2.5 MG TAB PO SCH (10:55)
[2018-10-05] MEDS: LIDOCAINE 5% PATCH TD SCH (10:56)
[2018-10-05] MEDS: ENOXAPARIN 80 MG/0.8 ML SYG SC SCH (13:34)
[2018-10-05] MEDS: GUAIFENESIN/CODEINE 5ML CUP PO PRN ×2 (14:00→22:32)
[2018-10-05] MEDS ORDERED: BUMETANIDE 1 MG INJ IV SCH (18:00)
[2018-10-05] MEDS: BUMETANIDE 2 MG in DEXTROSE 5% 17 ML IV SCH (18:48)
[2018-10-05] MEDS: ATORVASTATIN 80 MG TAB PO SCH (20:44)
[2018-10-05] MEDS: ARTIFICIAL TEARS 15 ML OPH BOTH EYES PRN (22:32)
[2018-10-06] VITALS (12 sets, daily range): BP systolic 116–168; BP diastolic 53–75; PULSE 70–92; RESP 18–22
[2018-10-06] MEDS: ACCUCHECK AT 2AM (Patients on SS coverage) XX SCH (02:00)
[2018-10-06] MEDS: ACETAMINOPHEN 325 MG TAB PO PRN ×2 (03:02→23:14)
[2018-10-06] MEDS: BUMETANIDE 2 MG in DEXTROSE 5% 17 ML IV SCH ×2 (06:46→17:38)
[2018-10-06] MEDS: INSULIN ASPART [NOVOLOG] 3 ML PEN SC SCH ×4 (07:53→20:36)
--- NOTE | 2018-10-06 08:08 | CONS ---
Assessment/Plan Assessment/Plan Hospital Course (Demo Recall) 1) CHF, r/o pneumonia on levo/aztreanom since 09/24 check procalcitonin and if <0.25 to d/c aztreanom pt did not have some coryza before her CP and SOB so a viral etiology is possible, will order viral pcr of nares no sputum production so no cx possible but nasal for MRSA was neg of noted WBC normalized prior to start of antibiotics pt is anxious to get off biPAP so that she can drink fluids 09/26 - procalcitonin was elevated, c/w with a bacterial lung process continue with levo/aztreanom at present pt starting to bring up phlegm will order resp culture to repeat procalcitonin 09/27 - vanco was added by pulmonary yesterday, not clear for the reason (decreasing procalcitonin and normal WBC, no fever and neg MRSA screen) currently on levo/aztreanom/vanco CXR this a.m. shows more pulmonary edema and BNP is higher I will order swallow eval for patient sputum cx is normal respiratory radha to date I will sign off on case, pulmonary is managing the antibiotics 10/02 - asked to see pt again slow improvement with CXR and clinically procalcitonin is neg now, to repeat in a.m. d/c vanco/aztreanom and continue with levaquin but change to daily dosing at 250mg check BNP in a.m. too start stool softener (no stools since admission but just started to eat yesterday) 10/03 - continue with levaquin alone but change to po form pt is eating and had a solid stool await a.m. labs 10/06 - stable on oral levaquin, continue thru 10/07 (two week course) procalcitonin remains negative viral PCR was neg 2) increase in LFT's this is much improved, likely it represented liver congestion due to heart failure 3) DM this rapidly improved since admission Consultation Date/Type/Reason Admit Date/Time Sep 23, 2018 at 07:08 Initial Consult Date 09/25/18 Type of Consult ID Date/Time of Note DATE: 10/06/18 TIME: 08:05 24 HR Interval Summary Free Text/Dictation pt is slowly improving no N, V, D still has yellow phlegm with streaks of blood according to pt appetite is ok and eating without difficulty Exam/Review of Systems Exam Vitals Vital Signs Date Temp Pulse Resp B/P (MAP) Pulse Ox O2 O2 Flow FiO2 Time Delivery Rate 10/06/18 98.3 80 138/63 95 High Flow 07:29 (88) 10/06/18 60 04:49 10/06/18 20 03:10 Intake and Output 10/05/18 10/05/18 10/06/18 1515:00 23:00 07:00 IntakeIntake Total 650 ml 360 ml 250 ml OutputOutput Total 1020 ml 300 ml 450 ml BalanceBalance -370 ml 60 ml -200 ml Constitutional: alert, oriented Eyes: nl sclera ENMT: mucosa pink and moist Respiratory: clear to auscultation Cardiovascular: regular rate and rhythm Gastrointestinal: soft, non-tender Results Result Diagram: 10/04/18 0447 10/06/18 0449 Results 24hrs Laboratory Tests Test 10/05/18 11:54 10/05/18 17:28 10/05/18 20:42 10/06/18 03:04 Bedside Glucose 276 H 139 234 H 254 H Test 10/06/18 04:49 Sodium Level 137 Potassium Level 3.7 Chloride Level 98 Carbon Dioxide Level 31 Anion Gap 8 Blood Urea Nitrogen 24 H Creatinine 0.79 Est Glomerular Filtrat Rate mL/min Glucose Level 194 Calcium Level 8.6 B-Type Natriuretic 2830 H Peptide Medications Medication Current Medications Atorvastatin Calcium (Lipitor) 80 mg HS PO Last administered on 10/05/18at 20:44; Admin Dose 80 MG; Start 09/23/18 at 21:00 Aspirin (Halfprin) 81 mg DAILY PO Last administered on 10/05/18at 10:47; Admin Dose 81 MG; Start 09/24/18 at 09:00 IV Flush (NS 3 ml) 3 ml PER PROTOCOL IV ; Start 09/23/18 at 13:00 Lorazepam (Ativan) 0.5 mg Q8H PRN PO .ANXIETY Last administered on 09/26/18at 13:26; Admin Dose 0.5 MG; Start 09/23/18 at 13:00 Ondansetron HCl (Zofran Inj) 4 mg Q6H PRN IV NAUSEA/VOMITING; Start 09/23/18 at 13:00 Acetaminophen (Tylenol Tab) 650 mg Q6H PRN PO .PAIN 1-3 OR TEMP Last administered on 10/06/18at 03:02; Admin Dose 650 MG; Start 09/23/18 at 13:00 Zolpidem Tartrate (Ambien) 5 mg QHS PRN PO .INSOMNIA; Start 09/23/18 at 13:00 Docusate Sodium (Colace) 100 mg Q12H PRN PO .CONSTIPATION; Start 09/23/18 at 13:00 Magnesium Hydroxide (Milk Of Mag) 30 ml DAILY PRN PO .CONSTIPATION; Start 09/23/18 at 13:00 Miscellaneous Information 1 ea NOTE XX ; Start 09/23/18 at 13:30 Glucose (Glutose) 15 gm Q15M PRN PO DECREASED GLUCOSE; Start 09/23/18 at 13:30 Glucose (Glutose) 22.5 gm Q15M PRN PO DECREASED GLUCOSE; Start 09/23/18 at 13:30 Dextrose (D50w Syringe) 25 ml Q15M PRN IV DECREASED GLUCOSE; Start 09/23/18 at 13:30 Dextrose (D50w Syringe) 50 ml Q15M PRN IV DECREASED GLUCOSE; Start 09/23/18 at 13:30 Glucagon (Glucagen) 1 mg Q15M PRN IM DECREASED GLUCOSE; Start 09/23/18 at 13:30 Glucose (Glutose) 15 gm Q15M PRN BUCCAL DECREASED GLUCOSE; Start 09/23/18 at 13:30 Enoxaparin Sodium (Lovenox) 75 mg Q24H SC Last administered on 10/05/18at 13:34; Admin Dose 75 MG; Start 09/26/18 at 13:00 Lidocaine (Lidoderm) 1 patch DAILY TD Last administered on 10/05/18at 10:56; Admin Dose 1 PATCH; Start 09/26/18 at 12:00 Lorazepam (Ativan) 0.5 mg Q4H PRN IV ANXIETY Last administered on 09/29/18at 23:01; Admin Dose 0.5 MG; Start 09/26/18 at 19:30 Metoprolol Tartrate (Lopressor) 50 mg BID PO Last administered on 10/05/18 20:44; Admin Dose 50 MG; Start 09/27/18 at 21:00 Felodipine (Plendil) 2.5 mg DAILY PO Last administered on 10/05/18at 10:55; Admin Dose 2.5 MG; Start 09/29/18 at 09:00 Famotidine (Pepcid) 20 mg DAILY PO Last administered on 10/05/18 10:52; Admin Dose 20 MG; Start 09/30/18 at 09:00 Guaifenesin/ Codeine Phosphate (Robitussin Ac Liquid Cup) 5 ml Q4H PRN PO COUGH Last administered on 10/05/18 22:32; Admin Dose 5 ML; Start 10/01/18 at 10:30 Insulin Aspart (Novolog Insulin Pen) NOVOLOG *MODERATE* ALGORITHM WITH MEALS BEDTIME SC Last administered on 10/06/18 07:53; Admin Dose 4 UNIT; Start 10/01/18 at 11:30 Diagnostic Test (Pha) (Accu-Chek) 1 ea 02 XX Last administered on 10/05/18 02:00; Admin Dose 1 EA; Start 10/02/18 at 02:00 Eye Lubricant (Artificial Tears Oph) 2 drop PRN PRN BOTH EYES DRY EYES Last administered on 10/05/18 22:32; Admin Dose 2 DROP; Start 10/01/18 at 18:30 Levofloxacin/ Dextrose 50 ml @ 50 mls/hr Q24H IVPB Last administered on 10/05/18 10:53; Admin Dose 50 MLS/HR; Start 10/03/18 at 09:00 Docusate Sodium (Colace) 100 mg BID PO Last administered on 10/05/18 20:44; Admin Dose 100 MG; Start 10/02/18 at 13:00 Insulin Glargine (Lantus) 15 units DAILY@0800 SC ; Start 10/06/18 at 08:00 Bumetanide 2 mg/ Dextrose 25 ml @ 50 mls/hr BID DIURETICS IV Last administered on 10/06/18 06:46; Admin Dose 50 MLS/HR; Start 10/05/18 at 18:00 HARPREET HALE MD Oct 06, 2018 08:08
[2018-10-06] MEDS ORDERED: POTASSIUM CHLORIDE (SR) 10 MEQ TAB PO ONE (08:30)
--- NOTE | 2018-10-06 08:41 | PN ---
Date/Time of Note Date/Time of Note DATE: 10/06/18 TIME: 08:31 Assessment/Plan VTE Prophylaxis Risk score (from [facility] [place]0 risk: 8 SCD applied (from [facility] [place]): Yes Pharmacological prophylaxis: LMWH Pharm contraindication: other Lines/Catheters IV C[facility]ter Type (from [facility]): Peripheral IV Urinary Cath still in place: Yes Reason Cath still needed: urinary retention Assessment/Plan Hospital Course 1. Congestive heart failure /pneumonia. She is improved clinically. She is being tapered off antibiotics. Her pro calcitonin level is now normal. He is on IV Bumex and has been in negative fluid balance. 2. Renal failure. Her serum creatinine is normal and stable. 3. Respiratory failure . She is now off BiPAP and on high flow oxygen. 4. She is being seen by cardiology for elevated troponin levels which have now come down. 5. History of hypertension 6. Type 2 diabetes mellitus, blood sugars have been lower. She is now on on a dose of Lantus in addition to the sliding scale Humalog coverage. 7. Iron deficiency anemia. Patient has finished a course of Ferrlicit, IV iron replacement. Her hemoglobin has been increasing. 8. Atrial fibrillation, she has now converted to sinus rhythm.. Result Diagram: 10/04/18 0447 10/06/18 0449 Results 24hrs Laboratory Tests Test 10/05/18 11:54 10/05/18 17:28 10/05/18 20:42 10/06/18 03:04 Bedside Glucose 276 H 139 234 H 254 H Test 10/06/18 04:49 10/06/18 07:50 Sodium Level 137 Potassium Level 3.7 Chloride Level 98 Carbon Dioxide Level 31 Anion Gap 8 Blood Urea Nitrogen 24 H Creatinine 0.79 Est Glomerular Filtrat Rate mL/min Glucose Level 194 Calcium Level 8.6 B-Type Natriuretic 2830 H Peptide Bedside Glucose 207 Subjective 24 Hr Interval Summary Free Text/Dictation Mandi is awake and alert. She is feeling better. She still has a cough and brings up some yellow blood-tinged sputum. Her breathing is overall better but she is still on high flow oxygen. Constitutional: no complaints, improved Respiratory: cough, shortness of breath Cardiovascular: no complaints Gastrointestinal: no complaints Genitourinary: no complaints Musculoskeletal: no complaints Skin: no complaints Neurologic: no complaints Exam/Review of Systems Exam Vitals Vital Signs Date Temp Pulse Resp B/P (MAP) Pulse Ox O2 O2 Flow FiO2 Time Delivery Rate 10/06/18 98.3 80 138/63 95 High Flow 07:29 (88) 10/06/18 60 04:49 10/06/18 20 03:10 Intake and Output 10/05/18 10/05/18 10/06/18 1515:00 23:00 07:00 IntakeIntake Total 650 ml 360 ml 250 ml OutputOutput Total 1020 ml 300 ml 450 ml BalanceBalance -370 ml 60 ml -200 ml Constitutional: alert, oriented, frail Respiratory: diminished breath sounds Cardiovascular: regular rate and rhythm Gastrointestinal: soft, non-tender Musculoskeletal: nl extremities to inspection Results Results 24hrs Laboratory Tests Test 10/05/18 11:54 10/05/18 17:28 10/05/18 20:42 10/06/18 03:04 Bedside Glucose 276 H 139 234 H 254 H Test 10/06/18 04:49 10/06/18 07:50 Sodium Level 137 Potassium Level 3.7 Chloride Level 98 Carbon Dioxide Level 31 Anion Gap 8 Blood Urea Nitrogen 24 H Creatinine 0.79 Est Glomerular Filtrat Rate mL/min Glucose Level 194 Calcium Level 8.6 B-Type Natriuretic 2830 H Peptide Bedside Glucose 207 Medications Medication Current Medications Atorvastatin Calcium (Lipitor) 80 mg HS PO Last administered on 10/05/18at 20:44; Admin Dose 80 MG; Start 09/23/18 at 21:00 Aspirin (Halfprin) 81 mg DAILY PO Last administered on 10/05/18at 10:47; Admin Dose 81 MG; Start 09/24/18 at 09:00 IV Flush (NS 3 ml) 3 ml PER PROTOCOL IV ; Start 09/23/18 at 13:00 Lorazepam (Ativan) 0.5 mg Q8H PRN PO .ANXIETY Last administered on 09/26/18at 13:26; Admin Dose 0.5 MG; Start 09/23/18 at 13:00 Ondansetron HCl (Zofran Inj) 4 mg Q6H PRN IV NAUSEA/VOMITING; Start 09/23/18 at 13:00 Acetaminophen (Tylenol Tab) 650 mg Q6H PRN PO .PAIN 1-3 OR TEMP Last administered on 10/06/18at 03:02; Admin Dose 650 MG; Start 09/23/18 at 13:00 Zolpidem Tartrate (Ambien) 5 mg QHS PRN PO .INSOMNIA; Start 09/23/18 at 13:00 Docusate Sodium (Colace) 100 mg Q12H PRN PO .CONSTIPATION; Start 09/23/18 at 13:00 Magnesium Hydroxide (Milk Of Mag) 30 ml DAILY PRN PO .CONSTIPATION; Start 09/23 at 13:00 Miscellaneous Information 1 ea NOTE XX ; Start 09/23/18 at 13:30 Glucose (Glutose) 15 gm Q15M PRN PO DECREASED GLUCOSE; Start 09/23/18 at 13:30 Glucose (Glutose) 22.5 gm Q15M PRN PO DECREASED GLUCOSE; Start 09/23/18 at 13:30 Dextrose (D50w Syringe) 25 ml Q15M PRN IV DECREASED GLUCOSE; Start 09/23/18 at 13:30 Dextrose (D50w Syringe) 50 ml Q15M PRN IV DECREASED GLUCOSE; Start 09/23/18 at 13:30 Glucagon (Glucagen) 1 mg Q15M PRN IM DECREASED GLUCOSE; Start 09/23/18 at 13:30 Glucose (Glutose) 15 gm Q15M PRN BUCCAL DECREASED GLUCOSE; Start 09/23/18 at 13:30 Enoxaparin Sodium (Lovenox) 75 mg Q24H SC Last administered on 10/05/18at 13:34; Admin Dose 75 MG; Start 09/26/18 at 13:00 Lidocaine (Lidoderm) 1 patch DAILY TD Last administered on 10/05/18at 10:56; Admin Dose 1 PATCH; Start 09/26/18 at 12:00 Lorazepam (Ativan) 0.5 mg Q4H PRN IV ANXIETY Last administered on 09/29/18at 23 :01; Admin Dose 0.5 MG; Start 09/26/18 at 19:30 Metoprolol Tartrate (Lopressor) 50 mg BID PO Last administered on 10/05/18at 20:44; Admin Dose 50 MG; Start 09/27/18 at 21:00 Felodipine (Plendil) 2.5 mg DAILY PO Last administered on 10/05/18at 10:55; Admin Dose 2.5 MG; Start 09/29/18 at 09:00 Famotidine (Pepcid) 20 mg DAILY PO Last administered on 6/23/19at 10:52; Admin Dose 20 MG; Start 09/30/18 at 09:00 Guaifenesin/ Codeine Phosphate (Robitussin Ac Liquid Cup) 5 ml Q4H PRN PO COUGH Last administered on 10/05/18 22:32; Admin Dose 5 ML; Start 10/01/18 at 10:30 Insulin Aspart (Novolog Insulin Pen) NOVOLOG *MODERATE* ALGORITHM WITH MEALS BEDTIME SC Last administered on 10/06/18 07:53; Admin Dose 4 UNIT; Start 10/01/18 at 11:30 Diagnostic Test (Pha) (Accu-Chek) 1 ea 02 XX Last administered on 10/05/18 02:00; Admin Dose 1 EA; Start 10/02/18 at 02:00 Eye Lubricant (Artificial Tears Oph) 2 drop PRN PRN BOTH EYES DRY EYES Last administered on 10/05/18 22:32; Admin Dose 2 DROP; Start 10/01/18 at 18:30 Levofloxacin/ Dextrose 50 ml @ 50 mls/hr Q24H IVPB Last administered on 10/05/18 10:53; Admin Dose 50 MLS/HR; Start 10/03/18 at 09:00; Stop 10/07/18 at 20:00 Docusate Sodium (Colace) 100 mg BID PO Last administered on 10/05/18 20:44; Admin Dose 100 MG; Start 10/02/18 at 13:00 Insulin Glargine (Lantus) 15 units DAILY@0800 SC ; Start 10/06/18 at 08:00 Bumetanide 2 mg/ Dextrose 25 ml @ 50 mls/hr BID DIURETICS IV Last administered on 10/06/18 06:46; Admin Dose 50 MLS/HR; Start 10/05/18 at 18:00 Potassium Chloride (Klor-Con 10) 30 meq ONCE ONCE PO ; Start 10/06/18 at 08:30; Stop 10/06/18 at 08:31; Status GENARO FERNANDEZ MD Oct 06, 2018 08:41
[2018-10-06] MEDS: ASPIRIN (EC) 81 MG TAB PO SCH (08:48)
[2018-10-06] MEDS: DOCUSATE SODIUM 100 MG CAP PO SCH ×2 (08:48→20:35)
[2018-10-06] MEDS: FAMOTIDINE 20 MG TAB PO SCH (08:48)
[2018-10-06] MEDS: FELODIPINE (ER) 2.5 MG TAB PO SCH (08:49)
[2018-10-06] MEDS: METOPROLOL 50 MG TAB PO SCH ×2 (08:49→20:36)
[2018-10-06] MEDS: LIDOCAINE 5% PATCH TD SCH (08:50)
[2018-10-06] MEDS: INSULIN GLARGINE [LANTus] (100 UNITS/ML) SYG SC SCH (09:04)
[2018-10-06] MEDS: GUAIFENESIN/CODEINE 5ML CUP PO PRN (12:56)
[2018-10-06] MEDS: LEVOFLOXACIN 250MG/D5W (PMX) 50 ML IVPB SCH (12:56)
[2018-10-06] MEDS: ARTIFICIAL TEARS 15 ML OPH BOTH EYES PRN (12:56)
[2018-10-06] MEDS: ENOXAPARIN 80 MG/0.8 ML SYG SC SCH (13:05)
--- NOTE | 2018-10-06 15:42 | CONS ---
Consult Date/Type/Reason Admit Date/Time Sep 23, 2018 at 07:08 Initial Consult Date 09/25/18 Type of Consult Pulmonary Date/Time of Note DATE: 10/06/18 TIME: 15:39 Subjective Comfortable this morning. No respiratory distress. Objective Vital Signs Date Temp Pulse Resp B/P (MAP) Pulse Ox O2 O2 Flow FiO2 Time Delivery Rate 10/06/18 98.0 90 22 149/67 High Flow 15:30 (94) 10/06/18 97 11:21 10/06/18 60 09:39 Intake and Output 10/05/18 10/05/18 10/06/18 1515:00 23:00 07:00 IntakeIntake Total 650 ml 360 ml 250 ml OutputOutput Total 1020 ml 300 ml 450 ml BalanceBalance -370 ml 60 ml -200 ml Exam GENERAL: Elderly lady comfortable at rest no acute distress VITAL SIGNS: per chart NECK: Supple. No JVD or lymphadenopathy. CARDIAC EXAM: S1, S2. No added sounds or murmurs. CHEST: Diminished air entry bilaterally with few rales ABDOMEN: Soft, nontender. No guarding or rebound. EXTREMITIES: No cyanosis, clubbing or edema. NEUROLOGIC: Generalized weakness. No focal deficits. Vent Setting Fraction of Inspired Oxygen pe: 60 Results/Medications Result Diagram: 10/04/18 0447 10/06/18 0449 Results 24 hrs Laboratory Tests Test 10/05/18 17:28 10/05/18 20:42 10/06/18 03:04 10/06/18 04:49 Bedside Glucose 139 234 H 254 H Sodium Level 137 Potassium Level 3.7 Chloride Level 98 Carbon Dioxide Level 31 Anion Gap 8 Blood Urea Nitrogen 24 H Creatinine 0.79 Est Glomerular Filtrat Rate mL/min Glucose Level 194 Calcium Level 8.6 B-Type Natriuretic 2830 H Peptide Test 10/06/18 07:50 10/06/18 11:51 Bedside Glucose 207 250 H Medications Current Medications Atorvastatin Calcium (Lipitor) 80 mg HS PO Last administered on 10/05/18at 20:44; Admin Dose 80 MG; Start 09/23/18 at 21:00 Aspirin (Halfprin) 81 mg DAILY PO Last administered on 10/06/18at 08:48; Admin Dose 81 MG; Start 09/24/18 at 09:00 IV Flush (NS 3 ml) 3 ml PER PROTOCOL IV ; Start 09/23/18 at 13:00 Lorazepam (Ativan) 0.5 mg Q8H PRN PO .ANXIETY Last administered on 09/26/18at 13:26; Admin Dose 0.5 MG; Start 09/23/18 at 13:00 Ondansetron HCl (Zofran Inj) 4 mg Q6H PRN IV NAUSEA/VOMITING; Start 09/23/18 at 13:00 Acetaminophen (Tylenol Tab) 650 mg Q6H PRN PO .PAIN 1-3 OR TEMP Last administered on 10/06/18at 03:02; Admin Dose 650 MG; Start 09/23/18 at 13:00 Zolpidem Tartrate (Ambien) 5 mg QHS PRN PO .INSOMNIA; Start 09/23/18 at 13:00 Docusate Sodium (Colace) 100 mg Q12H PRN PO .CONSTIPATION; Start 09/23/18 at 13:00 Magnesium Hydroxide (Milk Of Mag) 30 ml DAILY PRN PO .CONSTIPATION; Start 09/23/18 at 13:00 Miscellaneous Information 1 ea NOTE XX ; Start 09/23/18 at 13:30 Glucose (Glutose) 15 gm Q15M PRN PO DECREASED GLUCOSE; Start 09/23/18 at 13:30 Glucose (Glutose) 22.5 gm Q15M PRN PO DECREASED GLUCOSE; Start 09/23/18 at 13:30 Dextrose (D50w Syringe) 25 ml Q15M PRN IV DECREASED GLUCOSE; Start 09/23/18 at 13:30 Dextrose (D50w Syringe) 50 ml Q15M PRN IV DECREASED GLUCOSE; Start 09/23/18 at 13:30 Glucagon (Glucagen) 1 mg Q15M PRN IM DECREASED GLUCOSE; Start 09/23/18 at 13:30 Glucose (Glutose) 15 gm Q15M PRN BUCCAL DECREASED GLUCOSE; Start 09/23/18 at 1 3:30 Enoxaparin Sodium (Lovenox) 75 mg Q24H SC Last administered on 10/06/18at 13:05; Admin Dose 75 MG; Start 09/26/18 at 13:00 Lidocaine (Lidoderm) 1 patch DAILY TD Last administered on 10/06/18at 08:50; Admin Dose 1 PATCH; Start 09/26/18 at 12:00 Lorazepam (Ativan) 0.5 mg Q4H PRN IV ANXIETY Last administered on 09/29/18 23:01; Admin Dose 0.5 MG; Start 09/26/18 at 19:30 Metoprolol Tartrate (Lopressor) 50 mg BID PO Last administered on 10/06/18 08:49; Admin Dose 50 MG; Start 09/27/18 at 21:00 Felodipine (Plendil) 2.5 mg DAILY PO Last administered on 10/06/18 08:49; Admin Dose 2.5 MG; Start 09/29/18 at 09:00 Famotidine (Pepcid) 20 mg DAILY PO Last administered on 10/06/18 08:48; Admin Dose 20 MG; Start 09/30/18 at 09:00 Guaifenesin/ Codeine Phosphate (Robitussin Ac Liquid Cup) 5 ml Q4H PRN PO COUGH Last administered on 10/06/18 12:56; Admin Dose 5 ML; Start 10/01/18 at 10:30 Insulin Aspart (Novolog Insulin Pen) NOVOLOG *MODERATE* ALGORITHM WITH MEALS BEDTIME SC Last administered on 10/06/18 12:01; Admin Dose 6 UNIT; Start 10/01/18 at 11:30 Diagnostic Test (Pha) (Accu-Chek) 1 ea 02 XX Last administered on 10/05/18 02:00; Admin Dose 1 EA; Start 10/02/18 at 02:00 Eye Lubricant (Artificial Tears Oph) 2 drop PRN PRN BOTH EYES DRY EYES Last administered on 10/06/18 12:56; Admin Dose 2 DROP; Start 10/01/18 at 18:30 Levofloxacin/ Dextrose 50 ml @ 50 mls/hr Q24H IVPB Last administered on 10/06/18 12:56; Admin Dose 50 MLS/HR; Start 10/03/18 at 09:00; Stop 10/07/18 at 20:00 Docusate Sodium (Colace) 100 mg BID PO Last administered on 10/06/18 08:48; Admin Dose 100 MG; Start 10/02/18 at 13:00 Insulin Glargine (Lantus) 15 units DAILY@0800 SC Last administered on 10/06/18 09:04; Admin Dose 15 UNITS; Start 10/06/18 at 08:00 Bumetanide 2 mg/ Dextrose 25 ml @ 50 mls/hr BID DIURETICS IV Last administered on 10/06/18at 06:46; Admin Dose 50 MLS/HR; Start 10/05/18 at 18:00 Assessment/Plan Hospital Course (Demo Recall) Assessment 1. Status post acute hypoxemic respiratory failure 2. Congestive cardiac failure 3. Normal procalcitonin level noted. 4. Recent non-ST elevation [place] Plan 1. Continue renal recommendations regarding diuretics 2. Aspiration precautions 3. ID recommendations PATEL GRIFFITH MD, [facility] Oct 06, 2018 15:42
--- NOTE | 2018-10-06 17:13 | CONS ---
Assessment/Plan Assessment/Plan Hospital Course (Demo Recall) ASSESSMENT: 1. Multi lobar probable right lung pneumonia possible ARDS. 2. Non-ST elevation myocardial infarction. 3. Hypertension. 4. Type 2 diabetes. 5. Mild to moderate aortic stenosis. 6. Acute diastolic heart failure. 7. Gout. 8. Normocytic anemia. 9. Hyperlipidemia. 10. Acute respiratory failure probably multifactorial secondary to pneumonia and concomitant heart failure. 11. History of breast cancer. 12. Renal insufficiency. 13. PAF- < 24hr, converted to nsr. PLAN: 1. Continue diuresis on bumex. goal 1-2L. bnp remains elevate. repeat limited echo tomorrow 2. continue asa/statin/felodipine 3. watch electrolytes 4. tele without recurrent afib, monitor 5. resp mgmt per pulm. consider LHC when pt stable/recovered from pulm process Consultation Date/Type/Reason Admit Date/Time Sep 23, 2018 at 07:08 Initial Consult Date 09/25/18 Date/Time of Note DATE: 10/06/18 TIME: 17:08 24 HR Interval Summary Free Text/Dictation seen this am, remains on high flow o2 at 60% states feels better, has not used bipap x 3 days. no chest pain pressure, no palp tele reviewed NSR no events Detailed Summary Eyes: no complaints ENT: no complaints Respiratory: shortness of breath Cardiovascular: no complaints Exam/Review of Systems Exam Vitals Vital Signs Date Temp Pulse Resp B/P (MAP) Pulse Ox O2 O2 Flow FiO2 Time Delivery Rate 10/06/18 92 70 16:23 10/06/18 88 16:00 10/06/18 98.0 22 149/67 High Flow 15:30 (94) Intake and Output 10/05/18 10/05/18 10/06/18 1515:00 23:00 07:00 IntakeIntake Total 650 ml 360 ml 250 ml OutputOutput Total 1020 ml 300 ml 450 ml BalanceBalance -370 ml 60 ml -200 ml Exam HEENT; no JVD, no HJR, carotids 2 over 4+ without bruits. Chest: coarse Cardiac: S4, S1, S2 with normal physiologic splitting, 2/6 early to mid peaking systolic ejection murmur, no rub click or diastolic murmur noted. Abdominal: Bowel sounds positive, soft nontender, no abdominal bruit noted, no hepatosplenomegaly. Extremities: No cyanosis, clubbing, or edema. Negative Homans sign or palpable cords. Pulses: 2/4 pulses diffusely no bruits noted. Results Result Diagram: 10/04/18 0447 10/06/18 0449 Results 24hrs Laboratory Tests Test 10/05/18 17:28 10/05/18 20:42 10/06/18 03:04 10/06/18 04:49 Bedside Glucose 139 234 H 254 H Sodium Level 137 Potassium Level 3.7 Chloride Level 98 Carbon Dioxide Level 31 Anion Gap 8 Blood Urea Nitrogen 24 H Creatinine 0.79 Est Glomerular Filtrat Rate mL/min Glucose Level 194 Calcium Level 8.6 B-Type Natriuretic 2830 H Peptide Test 10/06/18 07:50 10/06/18 11:51 Bedside Glucose 207 250 H Imaging Imaging cxr report reviewed in emr Medications Medication Current Medications Atorvastatin Calcium (Lipitor) 80 mg HS PO Last administered on 10/05/18at 20:44; Admin Dose 80 MG; Start 09/23/18 at 21:00 Aspirin (Halfprin) 81 mg DAILY PO Last administered on 10/06/18at 08:48; Admin Dose 81 MG; Start 09/24/18 at 09:00 IV Flush (NS 3 ml) 3 ml PER PROTOCOL IV ; Start 09/23/18 at 13:00 Lorazepam (Ativan) 0.5 mg Q8H PRN PO .ANXIETY Last administered on 09/26/18at 13:26; Admin Dose 0.5 MG; Start 09/23/18 at 13:00 Ondansetron HCl (Zofran Inj) 4 mg Q6H PRN IV NAUSEA/VOMITING; Start 09/23/18 at 13:00 Acetaminophen (Tylenol Tab) 650 mg Q6H PRN PO .PAIN 1-3 OR TEMP Last administered on 10/06/18at 03:02; Admin Dose 650 MG; Start 09/23/18 at 13:00 Zolpidem Tartrate (Ambien) 5 mg QHS PRN PO .INSOMNIA; Start 09/23/18 at 13:00 Docusate Sodium (Colace) 100 mg Q12H PRN PO .CONSTIPATION; Start 09/23/18 at 13:00 Magnesium Hydroxide (Milk Of Mag) 30 ml DAILY PRN PO .CONSTIPATION; Start 09/23/18 at 13:00 Miscellaneous Information 1 ea NOTE XX ; Start 09/23/18 at 13:30 Glucose (Glutose) 15 gm Q15M PRN PO DECREASED GLUCOSE; Start 09/23/18 at 13:30 Glucose (Glutose) 22.5 gm Q15M PRN PO DECREASED GLUCOSE; Start 09/23/18 at 13:30 Dextrose (D50w Syringe) 25 ml Q15M PRN IV DECREASED GLUCOSE; Start 09/23/18 at 13:30 Dextrose (D50w Syringe) 50 ml Q15M PRN IV DECREASED GLUCOSE; Start 09/23/18 at 13:30 Glucagon (Glucagen) 1 mg Q15M PRN IM DECREASED GLUCOSE; Start 09/23/18 at 13:30 Glucose (Glutose) 15 gm Q15M PRN BUCCAL DECREASED GLUCOSE; Start 09/23/18 at 13:30 Enoxaparin Sodium (Lovenox) 75 mg Q24H SC Last administered on 10/06/18at 13:05; Admin Dose 75 MG; Start 09/26/18 at 13:00 Lidocaine (Lidoderm) 1 patch DAILY TD Last administered on 10/06/18at 08:50; Admin Dose 1 PATCH; Start 09/26/18 at 12:00 Lorazepam (Ativan) 0.5 mg Q4H PRN IV ANXIETY Last administered on 09/29/18at 23:01; Admin Dose 0.5 MG; Start 09/26/18 at 19:30 Metoprolol Tartrate (Lopressor) 50 mg BID PO Last administered on 10/06/18at 08:49; Admin Dose 50 MG; Start 09/27/18 at 21:00 Felodipine (Plendil) 2.5 mg DAILY PO Last administered on 10/06/18at 08:49; Admin Dose 2.5 MG; Start 09/29/18 at 09:00 Famotidine (Pepcid) 20 mg DAILY PO Last administered on 10/06/18 08:48; Admin Dose 20 MG; Start 09/30/18 at 09:00 Guaifenesin/ Codeine Phosphate (Robitussin Ac Liquid Cup) 5 ml Q4H PRN PO COUGH Last administered on 10/06/18at 12:56; Admin Dose 5 ML; Start 10/01/18 at 10:30 Insulin Aspart (Novolog Insulin Pen) NOVOLOG *MODERATE* ALGORITHM WITH MEALS BEDTIME SC Last administered on 10/06/18 12:01; Admin Dose 6 UNIT; Start 10/01/18 at 11:30 Diagnostic Test (Pha) (Accu-Chek) 1 ea 02 XX Last administered on 10/05/18 02:00; Admin Dose 1 EA; Start 10/02/18 at 02:00 Eye Lubricant (Artificial Tears Oph) 2 drop PRN PRN BOTH EYES DRY EYES Last administered on 10/06/18 12:56; Admin Dose 2 DROP; Start 10/01/18 at 18:30 Levofloxacin/ Dextrose 50 ml @ 50 mls/hr Q24H IVPB Last administered on 10/06/18 12:56; Admin Dose 50 MLS/HR; Start 10/03/18 at 09:00; Stop 10/07/18 at 20:00 Docusate Sodium (Colace) 100 mg BID PO Last administered on 10/06/18 08:48; Admin Dose 100 MG; Start 10/02/18 at 13:00 Insulin Glargine (Lantus) 15 units DAILY@0800 SC Last administered on 10/06/18 09:04; Admin Dose 15 UNITS; Start 10/06/18 at 08:00 Bumetanide 2 mg/ Dextrose 25 ml @ 50 mls/hr BID DIURETICS IV Last administered on 10/06/18 06:46; Admin Dose 50 MLS/HR; Start 10/05/18 at 18:00 YAIMA BARROW Oct 06, 2018 17:13
[2018-10-06] MEDS: ATORVASTATIN 80 MG TAB PO SCH (20:34)
[2018-10-07] VITALS (9 sets, daily range): BP systolic 117–161; BP diastolic 55–71; PULSE 65–84; RESP 17–20
[2018-10-07] MEDS: ACCUCHECK AT 2AM (Patients on SS coverage) XX SCH (02:00)
[2018-10-07] MEDS: BUMETANIDE 2 MG in DEXTROSE 5% 17 ML IV SCH ×2 (05:58→17:25)
[2018-10-07] MEDS: INSULIN GLARGINE [LANTus] (100 UNITS/ML) SYG SC SCH (07:50)
[2018-10-07] MEDS: INSULIN ASPART [NOVOLOG] 3 ML PEN SC SCH ×4 (07:51→21:00)
--- NOTE | 2018-10-07 08:44 | PN ---
Date/Time of Note Date/Time of Note DATE: 10/07/18 TIME: 08:41 Assessment/Plan VTE [place] [facility]: 6 [place] [facility] [place] Yes Pharmacological prophylaxis: LMWH Pharm contraindication: other Lines/Catheters IV C[facility]ter Type (from [facility] Saline Lock Urinary Cath still in place: No Reason Cath still needed: urinary retention Assessment/Plan Hospital Course 1. Congestive heart failure /pneumonia. She is improved clinically. She is being tapered off antibiotics. Her pro calcitonin level is now normal. she is on IV Bumex and has been in negative fluid balance. 2. Renal failure. Her serum creatinine is normal and stable. 3. Respiratory failure . She is now off BiPAP and on high flow oxygen. Duglas duff continues to follow her. 4. She is being seen by cardiology for elevated troponin levels which have now come down. 5. History of hypertension 6. Type 2 diabetes mellitus, blood sugars have been lower. She is now on on a dose of Lantus in addition to the sliding scale Humalog coverage. 7. Iron deficiency anemia. Patient has finished a course of Ferrlicit, IV iron replacement. Her hemoglobin is lower today. 8. Atrial fibrillation, she has now converted to sinus rhythm.. Result Diagram: 10/07/1844810/07/18448 Results 24hrs Laboratory Tests Test 10/06/18 11:51 10/06/18 17:31 10/06/18 20:33 10/07/18 04:49 Bedside Glucose 250 H 140 168 White Blood Count 7.7 Red Blood Count 3.05 L Hemoglobin 8.4 L Hematocrit 26.2 L Mean Corpuscular 85.9 Volume Mean Corpuscular 27.5 L Hemoglobin Mean Corpuscular 32.1 Hemoglobin Concent Red Cell 13.3 Distribution Width Platelet Count 312 Mean Platelet Volume 11.9 H Immature 0.800 H Granulocytes % Neutrophils % 65.8 Lymphocytes % 20.0 Monocytes % 10.7 Eosinophils % 2.3 Basophils % 0.4 Nucleated Red Blood 0.0 Cells % Immature 0.060 H Granulocytes # Neutrophils # 5.1 Lymphocytes # 1.5 Monocytes # 0.8 Eosinophils # 0.2 Basophils # 0.0 Nucleated Red Blood 0.0 Cells # Sodium Level 136 Potassium Level 3.7 Chloride Level 98 Carbon Dioxide Level 33 H Anion Gap 5 Blood Urea Nitrogen 24 H Creatinine 0.91 Est Glomerular Filtrat Rate mL/min Glucose Level 148 # Calcium Level 8.5 Magnesium Level 1.7 Total Bilirubin 0.4 Direct Bilirubin 0.00 Indirect Bilirubin 0.4 Aspartate Amino 107 H Transf (AST/SGOT) Alanine 136 H Aminotransferase (AL T/SGPT) Alkaline Phosphatase 90 Total Protein 5.9 L Albumin 2.9 L Globulin 3.00 Albumin/Globulin 0.96 Ratio Test 10/07/18 07:35 Bedside Glucose 162 Subjective 24 Hr Interval Summary Free Text/Dictation Mandi is awake and alert this morning she is sitting up eating breakfast. She says that she is feeling better. She does have some pain in the arch of her left foot. She is still on high flow oxygen. Constitutional: improved Respiratory: cough, shortness of breath Cardiovascular: no complaints Genitourinary: no complaints Musculoskeletal: no complaints Exam/Review of Systems Exam Vitals Vital Signs Date Temp Pulse Resp B/P (MAP) Pulse Ox O2 O2 Flow FiO2 Time Delivery Rate 10/07/18 98.4 83 17 161/71 91 07:43 (101) 10/07/18 60 04:54 10/07/18 Nasal 04:00 Cannula Intake and Output 10/06/18 10/06/18 10/07/18 1414:59 22:59 06:59 IntakeIntake Total 950 ml 350 ml 320 ml OutputOutput Total 1600 ml 450 ml 650 ml BalanceBalance -650 ml -100 ml -330 ml Constitutional: alert, oriented Respiratory: congested cough, diminished breath sounds Cardiovascular: regular rate and rhythm Gastrointestinal: soft, non-tender Musculoskeletal: nl extremities to inspection Results Results 24hrs Laboratory Tests Test 10/06/18 11:51 10/06/18 17:31 10/06/18 20:33 10/07/18 04:49 Bedside Glucose 250 H 140 168 White Blood Count 7.7 Red Blood Count 3.05 L Hemoglobin 8.4 L Hematocrit 26.2 L Mean Corpuscular 85.9 Volume Mean Corpuscular 27.5 L Hemoglobin Mean Corpuscular 32.1 Hemoglobin Concent Red Cell 13.3 Distribution Width Platelet Count 312 Mean Platelet Volume 11.9 H Immature 0.800 H Granulocytes % Neutrophils % 65.8 Lymphocytes % 20.0 Monocytes % 10.7 Eosinophils % 2.3 Basophils % 0.4 Nucleated Red Blood 0.0 Cells % Immature 0.060 H Granulocytes # Neutrophils # 5.1 Lymphocytes # 1.5 Monocytes # 0.8 Eosinophils # 0.2 Basophils # 0.0 Nucleated Red Blood 0.0 Cells # Sodium Level 136 Potassium Level 3.7 Chloride Level 98 Carbon Dioxide Level 33 H Anion Gap 5 Blood Urea Nitrogen 24 H Creatinine 0.91 Est Glomerular Filtrat Rate mL/min Glucose Level 148 # Calcium Level 8.5 Magnesium Level 1.7 Total Bilirubin 0.4 Direct Bilirubin 0.00 Indirect Bilirubin 0.4 Aspartate Amino 107 H Transf (AST/SGOT) Alanine 136 H Aminotransferase (AL T/SGPT) Alkaline Phosphatase 90 Total Protein 5.9 L Albumin 2.9 L Globulin 3.00 Albumin/Globulin 0.96 Ratio Test 10/07/18 07:35 Bedside Glucose 162 Medications Medication Current Medications Atorvastatin Calcium (Lipitor) 80 mg HS PO Last administered on 10/06/18at 20:34; Admin Dose 80 MG; Start 09/23/18 at 21:00 Aspirin (Halfprin) 81 mg DAILY PO Last administered on 10/06/18at 08:48; Admin Dose 81 MG; Start 09/24/18 at 09:00 IV Flush (NS 3 ml) 3 ml PER PROTOCOL IV ; Start 09/23/18 at 13:00 Lorazepam (Ativan) 0.5 mg Q8H PRN PO .ANXIETY Last administered on 09/26/18at 13:26; Admin Dose 0.5 MG; Start 09/23/18 at 13:00 Ondansetron HCl (Zofran Inj) 4 mg Q6H PRN IV NAUSEA/VOMITING; Start 09/23/18 at 13:00 Acetaminophen (Tylenol Tab) 650 mg Q6H PRN PO .PAIN 1-3 OR TEMP Last administered on 10/06/18at 23:14; Admin Dose 650 MG; Start 09/23/18 at 13:00 Zolpidem Tartrate (Ambien) 5 mg QHS PRN PO .INSOMNIA; Start 09/23/18 at 13:00 Docusate Sodium (Colace) 100 mg Q12H PRN PO .CONSTIPATION; Start 09/23/18 at 13:00 Magnesium Hydroxide (Milk Of Mag) 30 ml DAILY PRN PO .CONSTIPATION; Start 09/23/18 at 13:00 Miscellaneous Information 1 ea NOTE XX ; Start 09/23/18 at 13:30 Glucose (Glutose) 15 gm Q15M PRN PO DECREASED GLUCOSE; Start 09/23/18 at 13:30 Glucose (Glutose) 22.5 gm Q15M PRN PO DECREASED GLUCOSE; Start 09/23/18 at 13:30 Dextrose (D50w Syringe) 25 ml Q15M PRN IV DECREASED GLUCOSE; Start 09/23/18 at 13:30 Dextrose (D50w Syringe) 50 ml Q15M PRN IV DECREASED GLUCOSE; Start 09/23/18 at 13:30 Glucagon (Glucagen) 1 mg Q15M PRN IM DECREASED GLUCOSE; Start 09/23/18 at 13:30 Glucose (Glutose) 15 gm Q15M PRN BUCCAL DECREASED GLUCOSE; Start 09/23/18 at 13:30 Enoxaparin Sodium (Lovenox) 75 mg Q24H SC Last administered on 10/06/18 13:05; Admin Dose 75 MG; Start 09/26/18 at 13:00 Lidocaine (Lidoderm) 1 patch DAILY TD Last administered on 10/06/18 08:50; Admin Dose 1 PATCH; Start 09/26/18 at 12:00 Lorazepam (Ativan) 0.5 mg Q4H PRN IV ANXIETY Last administered on 09/29/18 23:01; Admin Dose 0.5 MG; Start 09/26/18 at 19:30 Metoprolol Tartrate (Lopressor) 50 mg BID PO Last administered on 10/06/18 20:36; Admin Dose 50 MG; Start 09/27/18 at 21:00 Felodipine (Plendil) 2.5 mg DAILY PO Last administered on 10/06/18 08:49; Admin Dose 2.5 MG; Start 09/29/18 at 09:00 Famotidine (Pepcid) 20 mg DAILY PO Last administered on 10/06/18 08:48; Admin Dose 20 MG; Start 09/30/18 at 09:00 Guaifenesin/ Codeine Phosphate (Robitussin Ac Liquid Cup) 5 ml Q4H PRN PO COUGH Last administered on 10/06/18 12:56; Admin Dose 5 ML; Start 10/01/18 at 10:30 Insulin Aspart (Novolog Insulin Pen) NOVOLOG *MODERATE* ALGORITHM WITH MEALS BEDTIME SC Last administered on 10/07/18 07:51; Admin Dose 2 UNIT; Start 10/01/18 at 11:30 Diagnostic Test (Pha) (Accu-Chek) 1 ea 02 XX Last administered on 10/05/18 02:00; Admin Dose 1 EA; Start 10/02/18 at 02:00 Eye Lubricant (Artificial Tears Oph) 2 drop PRN PRN BOTH EYES DRY EYES Last administered on 10/06/18 12:56; Admin Dose 2 DROP; Start 10/01/18 at 18:30 Levofloxacin/ Dextrose 50 ml @ 50 mls/hr Q24H IVPB Last administered on 10/06/18 12:56; Admin Dose 50 MLS/HR; Start 10/03/18 at 09:00; Stop 10/07/18 at 20:00 Docusate Sodium (Colace) 100 mg BID PO Last administered on 10/06/18 20:35; Admin Dose 100 MG; Start 10/02/18 at 13:00 Insulin Glargine (Lantus) 15 units DAILY@0800 SC Last administered on 10/07/18 07:50; Admin Dose 15 UNITS; Start 10/06/18 at 08:00 Bumetanide 2 mg/ Dextrose 25 ml @ 50 mls/hr BID DIURETICS IV Last administered on 10/07/18 05:58; Admin Dose 50 MLS/HR; Start 10/05/18 at 18:00 GENARO SEPULVEDA MD Oct 07, 2018 08:44
[2018-10-07] MEDS: LIDOCAINE 5% PATCH TD SCH (08:49)
[2018-10-07] MEDS: METOPROLOL 50 MG TAB PO SCH ×2 (08:49→20:58)
[2018-10-07] MEDS: FAMOTIDINE 20 MG TAB PO SCH (08:49)
[2018-10-07] MEDS: ASPIRIN (EC) 81 MG TAB PO SCH (08:49)
[2018-10-07] MEDS: DOCUSATE SODIUM 100 MG CAP PO SCH ×2 (08:49→21:00)
[2018-10-07] MEDS: FELODIPINE (ER) 2.5 MG TAB PO SCH (08:49)
[2018-10-07] MEDS: LEVOFLOXACIN 250MG/D5W (PMX) 50 ML IVPB SCH (08:50)
[2018-10-07] MEDS: ENOXAPARIN 80 MG/0.8 ML SYG SC SCH (12:54)
--- NOTE | 2018-10-07 15:21 | CONS ---
Consult Date/Type/Reason Admit Date/Time Sep 23, 2018 at 07:08 Initial Consult Date 09/25/18 Type of Consult Pulmonary Date/Time of Note DATE: 10/07/18 TIME: 15:21 Subjective Still has ongoing dyspnea. Still requiring 50% FiO2 at 30 L/min. Objective Vital Signs Date Temp Pulse Resp B/P (MAP) Pulse Ox O2 O2 Flow FiO2 Time Delivery Rate 10/07/18 98.0 72 18 138/62 96 15:11 (87) 10/07/18 60 11:00 10/07/18 Nasal 08:10 Cannula Intake and Output 10/06/18 10/06/18 10/07/18 1515:00 23:00 07:00 IntakeIntake Total 950 ml 350 ml 320 ml OutputOutput Total 1600 ml 450 ml 650 ml BalanceBalance -650 ml -100 ml -330 ml Exam GENERAL: Elderly lady comfortable at rest no acute distress VITAL SIGNS: per chart NECK: Supple. No JVD or lymphadenopathy. CARDIAC EXAM: S1, S2. No added sounds or murmurs. CHEST: Diminished air entry bilaterally with few rales ABDOMEN: Soft, nontender. No guarding or rebound. EXTREMITIES: No cyanosis, clubbing or edema. NEUROLOGIC: Generalized weakness. No focal deficits. Vent Setting Fraction of Inspired Oxygen pe: 60 Results/Medications Result Diagram: 10/07/1844810/07/18448 Results 24 hrs Laboratory Tests Test 10/06/18 17:31 10/06/18 20:33 10/07/18 04:47 10/07/18 04:49 Bedside Glucose 140 168 Iron Level 28 L Total Iron Binding 206 L Capacity Percent Iron 14 L Saturation Ferritin 926.0 H White Blood Count 7.7 Red Blood Count 3.05 L Hemoglobin 8.4 L Hematocrit 26.2 L Mean Corpuscular 85.9 Volume Mean Corpuscular 27.5 L Hemoglobin Mean Corpuscular 32.1 Hemoglobin Concent Red Cell 13.3 Distribution Width Platelet Count 312 Mean Platelet Volume 11.9 H Immature 0.800 H Granulocytes % Neutrophils % 65.8 Lymphocytes % 20.0 Monocytes % 10.7 Eosinophils % 2.3 Basophils % 0.4 Nucleated Red Blood 0.0 Cells % Immature 0.060 H Granulocytes # Neutrophils # 5.1 Lymphocytes # 1.5 Monocytes # 0.8 Eosinophils # 0.2 Basophils # 0.0 Nucleated Red Blood 0.0 Cells # Sodium Level 136 Potassium Level 3.7 Chloride Level 98 Carbon Dioxide Level 33 H Anion Gap 5 Blood Urea Nitrogen 24 H Creatinine 0.91 Est Glomerular Filtrat Rate mL/min Glucose Level 148 # Calcium Level 8.5 Magnesium Level 1.7 Total Bilirubin 0.4 Direct Bilirubin 0.00 Indirect Bilirubin 0.4 Aspartate Amino 107 H Transf (AST/SGOT) Alanine 136 H Aminotransferase (AL T/SGPT) Alkaline Phosphatase 90 Total Protein 5.9 L Albumin 2.9 L Globulin 3.00 Albumin/Globulin 0.96 Ratio Test 10/07/18 07:35 10/07/18 11:42 Bedside Glucose 162 214 Medications Current Medications Atorvastatin Calcium (Lipitor) 80 mg HS PO Last administered on 10/06/18at 20:34; Admin Dose 80 MG; Start 09/23/18 at 21:00 Aspirin (Halfprin) 81 mg DAILY PO Last administered on 10/07/18at 08:49; Admin Dose 81 MG; Start 09/24/18 at 09:00 IV Flush (NS 3 ml) 3 ml PER PROTOCOL IV ; Start 09/23/18 at 13:00 Lorazepam (Ativan) 0.5 mg Q8H PRN PO .ANXIETY Last administered on 09/26/18at 13:26; Admin Dose 0.5 MG; Start 09/23/18 at 13:00 Ondansetron HCl (Zofran Inj) 4 mg Q6H PRN IV NAUSEA/VOMITING; Start 09/23/18 at 13:00 Acetaminophen (Tylenol Tab) 650 mg Q6H PRN PO .PAIN 1-3 OR TEMP Last administered on 10/06/18at 23:14; Admin Dose 650 MG; Start 09/23/18 at 13:00 Zolpidem Tartrate (Ambien) 5 mg QHS PRN PO .INSOMNIA; Start 09/23/18 at 13:00 Docusate Sodium (Colace) 100 mg Q12H PRN PO .CONSTIPATION; Start 09/23/18 at 13:00 Magnesium Hydroxide (Milk Of Mag) 30 ml DAILY PRN PO .CONSTIPATION; Start at 13:00 Miscellaneous Information 1 ea NOTE XX ; Start 09/23/18 at 13:30 Glucose (Glutose) 15 gm Q15M PRN PO DECREASED GLUCOSE; Start 09/23/18 at 13:30 Glucose (Glutose) 22.5 gm Q15M PRN PO DECREASED GLUCOSE; Start 09/23/18 at 13:30 Dextrose (D50w Syringe) 25 ml Q15M PRN IV DECREASED GLUCOSE; Start 09/23/18 at 13:30 Dextrose (D50w Syringe) 50 ml Q15M PRN IV DECREASED GLUCOSE; Start 09/23/18 at 13:30 Glucagon (Glucagen) 1 mg Q15M PRN IM DECREASED GLUCOSE; Start 09/23/18 at 13:30 Glucose (Glutose) 15 gm Q15M PRN BUCCAL DECREASED GLUCOSE; Start 09/23/18 at 13:30 Enoxaparin Sodium (Lovenox) 75 mg Q24H SC Last administered on 10/07/18 12:54; Admin Dose 75 MG; Start 09/26/18 at 13:00 Lidocaine (Lidoderm) 1 patch DAILY TD Last administered on 10/07/18 08:49; Admin Dose 1 PATCH; Start 09/26/18 at 12:00 Lorazepam (Ativan) 0.5 mg Q4H PRN IV ANXIETY Last administered on 09/29/18 23:01; Admin Dose 0.5 MG; Start 09/26/18 at 19:30 Metoprolol Tartrate (Lopressor) 50 mg BID PO Last administered on 10/07/18 08:49; Admin Dose 50 MG; Start 09/27/18 at 21:00 Felodipine (Plendil) 2.5 mg DAILY PO Last administered on 10/07/18 08:49; Admin Dose 2.5 MG; Start 09/29/18 at 09:00 Famotidine (Pepcid) 20 mg DAILY PO Last administered on 10/07/18 08:49; Admin Dose 20 MG; Start 09/30/18 at 09:00 Guaifenesin/ Codeine Phosphate (Robitussin Ac Liquid Cup) 5 ml Q4H PRN PO COUGH Last administered on 10/06/18 12:56; Admin Dose 5 ML; Start 10/01/18 at 10:30 Insulin Aspart (Novolog Insulin Pen) NOVOLOG *MODERATE* ALGORITHM WITH MEALS BEDTIME SC Last administered on 10/07/18 11:52; Admin Dose 4 UNIT; Start 10/01/18 at 11:30 Diagnostic Test (Pha) (Accu-Chek) 1 ea 02 XX Last administered on 10/05/18at 02:00; Admin Dose 1 EA; Start 10/02/18 at 02:00 Eye Lubricant (Artificial Tears Oph) 2 drop PRN PRN BOTH EYES DRY EYES Last administered on 10/06/18at 12:56; Admin Dose 2 DROP; Start 10/01/18 at 18:30 Levofloxacin/ Dextrose 50 ml @ 50 mls/hr Q24H IVPB Last administered on 9at 08:50; Admin Dose 50 MLS/HR; Start 10/03/18 at 09:00; Stop 10/07/18 at 20:00 Docusate Sodium (Colace) 100 mg BID PO Last administered on 10/07/18 08:49; Admin Dose 100 MG; Start 10/02/18 at 13:00 Insulin Glargine (Lantus) 15 units DAILY@0800 SC Last administered on 10/07/18at 07:50; Admin Dose 15 UNITS; Start 10/06/18 at 08:00 Bumetanide 2 mg/ Dextrose 25 ml @ 50 mls/hr BID DIURETICS IV Last administered on 10/07/18 05:58; Admin Dose 50 MLS/HR; Start 10/05/18 at 18:00 Assessment/Plan Hospital Course (Demo Recall) Assessment 1. Status post acute hypoxemic respiratory failure 2. Congestive cardiac failure 3. Normal procalcitonin level noted. 4. Recent non-ST elevation MO Plan 1. Continue renal recommendations regarding diuretics 2. CT angiogram rule out pulmonary embolus and evaluate lung parenchyma 3. ID recommendations Consider Ng evaluation PATEL GRIFFITH MD, [facility] Oct 07, 2018 15:21
[2018-10-07] MEDS: ATORVASTATIN 80 MG TAB PO SCH (20:58)
[2018-10-07] MEDS ORDERED: IOHEXOL 100 ML ONE (21:30)
[2018-10-07] MEDS ORDERED: SOD CHLORIDE 0.9% 100 ML ONE (21:30)
[2018-10-08] VITALS (8 sets, daily range): BP systolic 113–155; BP diastolic 57–67; PULSE 65–84; RESP 17–21
[2018-10-08] MEDS: ACCUCHECK AT 2AM (Patients on SS coverage) XX SCH (02:00)
[2018-10-08] MEDS: BUMETANIDE 2 MG in DEXTROSE 5% 17 ML IV SCH ×2 (06:26→17:54)
[2018-10-08] MEDS: INSULIN GLARGINE [LANTus] (100 UNITS/ML) SYG SC SCH (07:47)
[2018-10-08] MEDS: INSULIN ASPART [NOVOLOG] 3 ML PEN SC SCH ×4 (07:47→20:37)
--- NOTE | 2018-10-08 07:57 | RADRPT ---
Echocardiogram Report Patient Name: DARCY MARSHPatient ID: [id number] : 1930 (88y 6m)Study Date: 10/07/2018 8:26:37 AM Gender: FAccession #: [id number] Tech: Tyrone James [facility] Location: 629 Ref.Physician: DES BARROW Height(Cm): BSA: Weight(Kg): Quality: AdequateOrder Physician: DES BARROW Account #: Procedures: Echocardiographic Report: Transthoracic echocardiogram examination. Indications: Congestive Heart Failure. Measurements: Doppler Measurement Value Normal Range AV Mean Eloy 1.8 [ 70.0 - 90.0 ] cm/sec AV Mean PG 15.0 [ 2.0 - 4.0 ] mmHg AV Peak Eloy 2.5 [ 100.0 - 170.0 ] cm/sec AV Peak PG 25.0 [ 2.0 - 9.0 ] mmHg AV VTI 51.4 cm LVOT Mean Eloy 0.7 [ 60.0 - 80.0 ] cm/sec LVOT Mean PG 2.0 [ 1.0 - 3.0 ] mmHg LVOT Peak Eloy 1.0 [ 70.0 - 110.0 ] cm/sec LVOT Peak PG 4.0 [ 2.0 - 6.0 ] mmHg LVOT VTI 22.4 [ 20.0 - 30.0 ] cm TR Peak Eloy 2.0 [ 100.0 - 280.0 ] cm/sec TR Peak PG 17.0 mmHg Findings: Left Ventricle: Normal left ventricular cavity size, wall thickness and systolic function. The left ventricular ejection fraction is visually estimated at 65 %. Right Ventricle: Normal right ventricular size. Normal right ventricular systolic function. Mitral Valve: Mild mitral annular calcification. Mild mitral regurgitation. Aortic Valve: Moderate aortic stenosis. Aortic cusps appear moderately calcified. Mild aortic regurgitation. Tricuspid Valve: Normal appearance of the tricuspid valve. Normal right ventricular systolic pressure. The estimated Peak RVSP is 20 mmHg. There is trivial tricuspid regurgitation. Pericardium: Normal pericardium with no significant pericardial effusion. IVC: Normal inferior vena cava appearance and respiratory collapse. Conclusions: Normal left ventricular cavity size, wall thickness and systolic function. The left ventricular ejection fraction is visually estimated at 65 %. Normal right ventricular size. Normal right ventricular systolic function. Mild mitral annular calcification. Mild mitral regurgitation. Moderate aortic stenosis. Aortic cusps appear moderately calcified. Mild aortic regurgitation. Normal appearance of the tricuspid valve. Normal right ventricular systolic pressure. The estimated Peak RVSP is 20 mmHg. There is trivial tricuspid regurgitation. Normal inferior vena cava appearance and respiratory collapse. Compared to prior study of , there is no significant change. Electronically Signed By: Des Barrow 2018-10-08 07:57:12 PDT
[2018-10-08] MEDS: DOCUSATE SODIUM 100 MG CAP PO SCH ×2 (08:19→20:35)
[2018-10-08] MEDS: LIDOCAINE 5% PATCH TD SCH (08:20)
[2018-10-08] MEDS: FELODIPINE (ER) 2.5 MG TAB PO SCH (08:20)
[2018-10-08] MEDS: ASPIRIN (EC) 81 MG TAB PO SCH (08:20)
[2018-10-08] MEDS: FAMOTIDINE 20 MG TAB PO SCH (08:20)
[2018-10-08] MEDS: METOPROLOL 50 MG TAB PO SCH ×2 (08:20→20:36)
[2018-10-08] MEDS: MAGNESIUM OXIDE 400 MG TAB PO SCH (08:38)
[2018-10-08] MEDS: POTASSIUM CHLORIDE (SR) 20 MEQ TAB PO SCH ×2 (08:39→20:35)
--- NOTE | 2018-10-08 08:43 | CONS ---
Assessment/Plan Assessment/Plan Hospital Course (Demo Recall) 1) CHF, r/o pneumonia on levo/aztreanom since 09/24 check procalcitonin and if <0.25 to d/c aztreanom pt did not have some coryza before her CP and SOB so a viral etiology is possible, will order viral pcr of nares no sputum production so no cx possible but nasal for MRSA was neg of noted WBC normalized prior to start of antibiotics pt is anxious to get off biPAP so that she can drink fluids 09/26 - procalcitonin was elevated, c/w with a bacterial lung process continue with levo/aztreanom at present pt starting to bring up phlegm will order resp culture to repeat procalcitonin 09/27 - vanco was added by pulmonary yesterday, not clear for the reason (decreasing procalcitonin and normal WBC, no fever and neg MRSA screen) currently on levo/aztreanom/vanco CXR this a.m. shows more pulmonary edema and BNP is higher I will order swallow eval for patient sputum cx is normal respiratory radha to date I will sign off on case, pulmonary is managing the antibiotics 10/02 - asked to see pt again slow improvement with CXR and clinically procalcitonin is neg now, to repeat in a.m. d/c vanco/aztreanom and continue with levaquin but change to daily dosing at 250mg check BNP in a.m. too start stool softener (no stools since admission but just started to eat yesterday) 10/03 - continue with levaquin alone but change to po form pt is eating and had a solid stool await a.m. labs 10/06 - stable on oral levaquin, continue thru 10/07 (two week course) procalcitonin remains negative viral PCR was neg 10/08 - CXR and CT confirms new infiltrates to RUL check procalcitonin and start merrem/doxy check ESR and MIGUEL 2) increase in LFT's this is much improved, likely it represented liver congestion due to heart failure 3) DM this rapidly improved since admission Consultation Date/Type/Reason Admit Date/Time Sep 23, 2018 at 07:08 Initial Consult Date 09/25/18 Type of Consult ID Date/Time of Note DATE: 10/08/18 TIME: 08:39 24 HR Interval Summary Free Text/Dictation pt states she feels warm but no fevers cough is mostly dry but clear if any phlegm comes up no N, V no D no CP Exam/Review of Systems Exam Vitals Vital Signs Date Temp Pulse Resp B/P (MAP) Pulse Ox O2 O2 Flow FiO2 Time Delivery Rate 10/08/18 98.3 79 17 128/59 94 07:11 (82) 10/08/18 50 04:48 10/08/18 Nasal 04:00 Cannula Intake and Output 10/07/18 10/07/18 10/08/18 1515:00 23:00 07:00 IntakeIntake Total 350 ml 25 ml 400 ml OutputOutput Total 800 ml 950 ml BalanceBalance -450 ml 25 ml -550 ml Constitutional: alert, oriented Eyes: nl sclera ENMT: mucosa pink and moist Respiratory: clear to auscultation Cardiovascular: regular rate and rhythm Gastrointestinal: soft, non-tender Results Result Diagram: 10/08/18 0522 10/08/18 0522 Results 24hrs Laboratory Tests Test 10/07/18 11:42 10/07/18 17:19 10/07/18 21:01 10/08/18 05:22 Bedside Glucose 214 152 152 White Blood Count 7.5 Red Blood Count 3.30 L Hemoglobin 9.1 L Hematocrit 27.7 L Mean Corpuscular 83.9 Volume Mean Corpuscular 27.6 L Hemoglobin Mean Corpuscular 32.9 Hemoglobin Concent Red Cell 13.2 Distribution Width Platelet Count 382 # Mean Platelet Volume 11.8 H Immature 0.900 H Granulocytes % Neutrophils % 64.7 Lymphocytes % 19.7 Monocytes % 11.1 H Eosinophils % 2.8 Basophils % 0.8 Nucleated Red Blood 0.0 Cells % Immature 0.070 H Granulocytes # Neutrophils # 4.8 Lymphocytes # 1.5 Monocytes # 0.8 Eosinophils # 0.2 Basophils # 0.1 Nucleated Red Blood 0.0 Cells # Sodium Level 141 Potassium Level 3.5 Chloride Level 96 L Carbon Dioxide Level 33 H Anion Gap 12 # Blood Urea Nitrogen 23 H Creatinine 0.87 Est Glomerular Filtrat Rate mL/min Glucose Level 152 Calcium Level 9.0 Magnesium Level 1.7 Total Bilirubin 0.4 Direct Bilirubin 0.00 Indirect Bilirubin 0.4 Aspartate Amino 136 H Transf (AST/SGOT) Alanine 172 H Aminotransferase (AL T/SGPT) Alkaline Phosphatase 105 Total Protein 6.1 Albumin 3.1 L Globulin 3.00 Albumin/Globulin 1.03 Ratio Test 10/08/18 07:39 Bedside Glucose 148 Medications Medication Current Medications Atorvastatin Calcium (Lipitor) 80 mg HS PO Last administered on 10/07/18at 20:58; Admin Dose 80 MG; Start 09/23/18 at 21:00 Aspirin (Halfprin) 81 mg DAILY PO Last administered on 10/08/18at 08:20; Admin Dose 81 MG; Start 09/24/18 at 09:00 IV Flush (NS 3 ml) 3 ml PER PROTOCOL IV ; Start 09/23/18 at 13:00 Lorazepam (Ativan) 0.5 mg Q8H PRN PO .ANXIETY Last administered on 09/26/18at 13:26; Admin Dose 0.5 MG; Start 09/23/18 at 13:00 Ondansetron HCl (Zofran Inj) 4 mg Q6H PRN IV NAUSEA/VOMITING; Start 09/23/18 at 13:00 Acetaminophen (Tylenol Tab) 650 mg Q6H PRN PO .PAIN 1-3 OR TEMP Last administered on 10/06/18at 23:14; Admin Dose 650 MG; Start 09/23/18 at 13:00 Zolpidem Tartrate (Ambien) 5 mg QHS PRN PO .INSOMNIA; Start 09/23/18 at 13:00 Docusate Sodium (Colace) 100 mg Q12H PRN PO .CONSTIPATION; Start 09/23/18 at 13:00 Magnesium Hydroxide (Milk Of Mag) 30 ml DAILY PRN PO .CONSTIPATION; Start 09/23/18 at 13:00 Miscellaneous Information 1 ea NOTE XX ; Start 09/23/18 at 13:30 Glucose (Glutose) 15 gm Q15M PRN PO DECREASED GLUCOSE; Start 09/23/18 at 13:30 Glucose (Glutose) 22.5 gm Q15M PRN PO DECREASED GLUCOSE; Start 09/23/18 at 13:30 Dextrose (D50w Syringe) 25 ml Q15M PRN IV DECREASED GLUCOSE; Start 09/23/18 at 13:30 Dextrose (D50w Syringe) 50 ml Q15M PRN IV DECREASED GLUCOSE; Start 09/23/18 at 13:30 Glucagon (Glucagen) 1 mg Q15M PRN IM DECREASED GLUCOSE; Start 09/23/18 at 13:30 Glucose (Glutose) 15 gm Q15M PRN BUCCAL DECREASED GLUCOSE; Start 09/23/18 at 13:30 Enoxaparin Sodium (Lovenox) 75 mg Q24H SC Last administered on 10/07/18 12:54; Admin Dose 75 MG; Start 09/26/18 at 13:00 Lidocaine (Lidoderm) 1 patch DAILY TD Last administered on 10/08/18 08:20; Admin Dose 1 PATCH; Start 09/26/18 at 12:00 Lorazepam (Ativan) 0.5 mg Q4H PRN IV ANXIETY Last administered on 09/29/18 23:01; Admin Dose 0.5 MG; Start 09/26/18 at 19:30 Metoprolol Tartrate (Lopressor) 50 mg BID PO Last administered on 10/08/18 08:20; Admin Dose 50 MG; Start 09/27/18 at 21:00 Felodipine (Plendil) 2.5 mg DAILY PO Last administered on 10/08/18 08:20; Admin Dose 2.5 MG; Start 09/29/18 at 09:00 Famotidine (Pepcid) 20 mg DAILY PO Last administered on 10/08/18 08:20; Admin Dose 20 MG; Start 09/30/18 at 09:00 Guaifenesin/ Codeine Phosphate (Robitussin Ac Liquid Cup) 5 ml Q4H PRN PO COUGH Last administered on 10/06/18 12:56; Admin Dose 5 ML; Start 10/01/18 at 10:30 Insulin Aspart (Novolog Insulin Pen) NOVOLOG *MODERATE* ALGORITHM WITH MEALS BEDTIME SC Last administered on 10/08/18 07:47; Admin Dose 2 UNIT; Start 10/01/18 at 11:30 Diagnostic Test (Pha) (Accu-Chek) 1 ea 02 XX Last administered on 10/05/18 02:00; Admin Dose 1 EA; Start 10/02/18 at 02:00 Eye Lubricant (Artificial Tears Oph) 2 drop PRN PRN BOTH EYES DRY EYES Last administered on 10/06/18 12:56; Admin Dose 2 DROP; Start 10/01/18 at 18:30 Docusate Sodium (Colace) 100 mg BID PO Last administered on 6/25/19at 08:49; Admin Dose 100 MG; Start 10/02/18 at 13:00 Insulin Glargine (Lantus) 15 units DAILY@0800 SC Last administered on 10/08/18at 07:47; Admin Dose 15 UNITS; Start 10/06/18 at 08:00 Bumetanide 2 mg/ Dextrose 25 ml @ 50 mls/hr BID DIURETICS IV Last administered on 10/08/18at 06:26; Admin Dose 50 MLS/HR; Start 10/05/18 at 18:00 Potassium Chloride (Klor-Con 20) 20 meq BID PO ; Start 10/08/18 at 09:00 Magnesium Oxide (Mag-Ox 400) 400 mg DAILY PO ; Start 10/08/18 at 09:00 HARPREET HALE MD Oct 08, 2018 08:43
--- NOTE | 2018-10-08 08:45 | PN ---
Date/Time of Note Date/Time of Note DATE: 10/08/18 TIME: 08:26 Assessment/Plan VTE Prophylaxis Risk score (from [facility] [place] risk: 4 SCD applied (from [facility] [place] Yes Pharmacological prophylaxis: LMWH Pharm contraindication: other Lines/Catheters IV Catheter Type (from [facility]): Saline Lock Urinary Cath still in place: Yes Reason Cath still needed: urinary retention Assessment/Plan Hospital Course 1. Congestive heart failure /pneumonia. She is improved clinically. She is being tapered off antibiotics. Her pro calcitonin level is now normal. she is on IV Bumex and has been in negative fluid balance.Her chest X ray shows new infiltrate , CT of chest shows infiltrates consistent with bronchopneumonia . ID to start antibiotics . 2. Renal failure. Her serum creatinine is normal and stable. 3. Respiratory failure . She is now off BiPAP and on high flow oxygen. Pulmonary continues to follow her. 4. She is being seen by cardiology for elevated troponin levels which have now come down. 5. History of hypertension 6. Type 2 diabetes mellitus, blood sugars have been lower. She is now on on a dose of Lantus in addition to the sliding scale Humalog coverage. 7. Iron deficiency anemia. Patient has finished a course of Ferrlicit, IV iron replacement. Her hemoglobin is lower today. 8. Atrial fibrillation, she has now converted to sinus rhythm.. Result Diagram: 10/08/18 0522 10/08/18 0522 Results 24hrs Laboratory Tests Test 10/07/18 11:42 10/07/18 17:19 10/07/18 21:01 10/08/18 05:22 Bedside Glucose 214 152 152 White Blood Count 7.5 Red Blood Count 3.30 L Hemoglobin 9.1 L Hematocrit 27.7 L Mean Corpuscular 83.9 Volume Mean Corpuscular 27.6 L Hemoglobin Mean Corpuscular 32.9 Hemoglobin Concent Red Cell 13.2 Distribution Width Platelet Count 382 # Mean Platelet Volume 11.8 H Immature 0.900 H Granulocytes % Neutrophils % 64.7 Lymphocytes % 19.7 Monocytes % 11.1 H Eosinophils % 2.8 Basophils % 0.8 Nucleated Red Blood 0.0 Cells % Immature 0.070 H Granulocytes # Neutrophils # 4.8 Lymphocytes # 1.5 Monocytes # 0.8 Eosinophils # 0.2 Basophils # 0.1 Nucleated Red Blood 0.0 Cells # Sodium Level 141 Potassium Level 3.5 Chloride Level 96 L Carbon Dioxide Level 33 H Anion Gap 12 # Blood Urea Nitrogen 23 H Creatinine 0.87 Est Glomerular Filtrat Rate mL/min Glucose Level 152 Calcium Level 9.0 Magnesium Level 1.7 Total Bilirubin 0.4 Direct Bilirubin 0.00 Indirect Bilirubin 0.4 Aspartate Amino 136 H Transf (AST/SGOT) Alanine 172 H Aminotransferase (AL T/SGPT) Alkaline Phosphatase 105 Total Protein 6.1 Albumin 3.1 L Globulin 3.00 Albumin/Globulin 1.03 Ratio Test 10/08/18 07:39 Bedside Glucose 148 Subjective 24 Hr Interval Summary Free Text/Dictation Mandi is awake and alert and is feeling better . Less cough , less sob . Constitutional: no complaints, improved Respiratory: cough, shortness of breath Cardiovascular: no complaints Gastrointestinal: no complaints Genitourinary: no complaints Musculoskeletal: no complaints Skin: no complaints Exam/Review of Systems Exam Vitals Vital Signs Date Temp Pulse Resp B/P (MAP) Pulse Ox O2 O2 Flow FiO2 Time Delivery Rate 10/08/18 98.3 79 17 128/59 94 07:11 (82) 10/08/18 50 04:48 10/08/18 Nasal 04:00 Cannula Intake and Output 10/07/18 10/07/18 10/08/18 1515:00 23:00 07:00 IntakeIntake Total 350 ml 25 ml 400 ml OutputOutput Total 800 ml 950 ml BalanceBalance -450 ml 25 ml -550 ml Constitutional: alert, oriented, frail Respiratory: diminished breath sounds Cardiovascular: regular rate and rhythm Gastrointestinal: soft, non-tender Musculoskeletal: nl extremities to inspection Results Results 24hrs Laboratory Tests Test 10/07/18 11:42 10/07/18 17:19 10/07/18 21:01 10/08/18 05:22 Bedside Glucose 214 152 152 White Blood Count 7.5 Red Blood Count 3.30 L Hemoglobin 9.1 L Hematocrit 27.7 L Mean Corpuscular 83.9 Volume Mean Corpuscular 27.6 L Hemoglobin Mean Corpuscular 32.9 Hemoglobin Concent Red Cell 13.2 Distribution Width Platelet Count 382 # Mean Platelet Volume 11.8 H Immature 0.900 H Granulocytes % Neutrophils % 64.7 Lymphocytes % 19.7 Monocytes % 11.1 H Eosinophils % 2.8 Basophils % 0.8 Nucleated Red Blood 0.0 Cells % Immature 0.070 H Granulocytes # Neutrophils # 4.8 Lymphocytes # 1.5 Monocytes # 0.8 Eosinophils # 0.2 Basophils # 0.1 Nucleated Red Blood 0.0 Cells # Sodium Level 141 Potassium Level 3.5 Chloride Level 96 L Carbon Dioxide Level 33 H Anion Gap 12 # Blood Urea Nitrogen 23 H Creatinine 0.87 Est Glomerular Filtrat Rate mL/min Glucose Level 152 Calcium Level 9.0 Magnesium Level 1.7 Total Bilirubin 0.4 Direct Bilirubin 0.00 Indirect Bilirubin 0.4 Aspartate Amino 136 H Transf (AST/SGOT) Alanine 172 H Aminotransferase (AL T/SGPT) Alkaline Phosphatase 105 Total Protein 6.1 Albumin 3.1 L Globulin 3.00 Albumin/Globulin 1.03 Ratio Test 10/08/18 07:39 Bedside Glucose 148 Medications Medication Current Medications Atorvastatin Calcium (Lipitor) 80 mg HS PO Last administered on 10/07/18at 20:58; Admin Dose 80 MG; Start 09/23/18 at 21:00 Aspirin (Halfprin) 81 mg DAILY PO Last administered on 10/08/18at 08:20; Admin Dose 81 MG; Start 09/24/18 at 09:00 IV Flush (NS 3 ml) 3 ml PER PROTOCOL IV ; Start 09/23/18 at 13:00 Lorazepam (Ativan) 0.5 mg Q8H PRN PO .ANXIETY Last administered on 09/26/18at 13:26; Admin Dose 0.5 MG; Start 09/23/18 at 13:00 Ondansetron HCl (Zofran Inj) 4 mg Q6H PRN IV NAUSEA/VOMITING; Start 09/23/18 at 13:00 Acetaminophen (Tylenol Tab) 650 mg Q6H PRN PO .PAIN 1-3 OR TEMP Last administered on 10/06/18at 23:14; Admin Dose 650 MG; Start 09/23/18 at 13:00 Zolpidem Tartrate (Ambien) 5 mg QHS PRN PO .INSOMNIA; Start 09/23/18 at 13:00 Docusate Sodium (Colace) 100 mg Q12H PRN PO .CONSTIPATION; Start 09/23/18 at 13:00 Magnesium Hydroxide (Milk Of Mag) 30 ml DAILY PRN PO .CONSTIPATION; Start 09/23/18 at 13:00 Miscellaneous Information 1 ea NOTE XX ; Start 09/23/18 at 13:30 Glucose (Glutose) 15 gm Q15M PRN PO DECREASED GLUCOSE; Start 09/23/18 at 13:30 Glucose (Glutose) 22.5 gm Q15M PRN PO DECREASED GLUCOSE; Start 09/23/18 at 13:30 Dextrose (D50w Syringe) 25 ml Q15M PRN IV DECREASED GLUCOSE; Start 09/23/18 at 13:30 Dextrose (D50w Syringe) 50 ml Q15M PRN IV DECREASED GLUCOSE; Start 09/23/18 at 13:30 Glucagon (Glucagen) 1 mg Q15M PRN IM DECREASED GLUCOSE; Start 09/23/18 at 13:30 Glucose (Glutose) 15 gm Q15M PRN BUCCAL DECREASED GLUCOSE; Start 09/23/18 at 13:30 Enoxaparin Sodium (Lovenox) 75 mg Q24H SC Last administered on 10/07/18at 12:54; Admin Dose 75 MG; Start 09/26/18 at 13:00 Lidocaine (Lidoderm) 1 patch DAILY TD Last administered on 10/08/18 08:20; Admin Dose 1 PATCH; Start 09/26/18 at 12:00 Lorazepam (Ativan) 0.5 mg Q4H PRN IV ANXIETY Last administered on 09/29/18at 23:01; Admin Dose 0.5 MG; Start 09/26/18 at 19:30 Metoprolol Tartrate (Lopressor) 50 mg BID PO Last administered on 10/08/18 08:20; Admin Dose 50 MG; Start 09/27/18 at 21:00 Felodipine (Plendil) 2.5 mg DAILY PO Last administered on 10/08/18 08:20; Admin Dose 2.5 MG; Start 09/29/18 at 09:00 Famotidine (Pepcid) 20 mg DAILY PO Last administered on 10/08/18 08:20; Admin Dose 20 MG; Start 09/30/18 at 09:00 Guaifenesin/ Codeine Phosphate (Robitussin Ac Liquid Cup) 5 ml Q4H PRN PO COUGH Last administered on 10/06/18at 12:56; Admin Dose 5 ML; Start 10/01/18 at 10:30 Insulin Aspart (Novolog Insulin Pen) NOVOLOG *MODERATE* ALGORITHM WITH MEALS BEDTIME SC Last administered on 10/08/18 07:47; Admin Dose 2 UNIT; Start 10/01/18 at 11:30 Diagnostic Test (Pha) (Accu-Chek) 1 ea 02 XX Last administered on 10/05/18 02:00; Admin Dose 1 EA; Start 10/02/18 at 02:00 Eye Lubricant (Artificial Tears Oph) 2 drop PRN PRN BOTH EYES DRY EYES Last administered on 10/06/18 12:56; Admin Dose 2 DROP; Start 10/01/18 at 18:30 Docusate Sodium (Colace) 100 mg BID PO Last administered on 10/07/18 08:49; Admin Dose 100 MG; Start 10/02/18 at 13:00 Insulin Glargine (Lantus) 15 units DAILY@0800 SC Last administered on 10/08/18 07:47; Admin Dose 15 UNITS; Start 10/06/18 at 08:00 Bumetanide 2 mg/ Dextrose 25 ml @ 50 mls/hr BID DIURETICS IV Last administered on 10/08/18 06:26; Admin Dose 50 MLS/HR; Start 10/05/18 at 18:00 Potassium Chloride (Klor-Con 20) 20 meq BID PO ; Start 10/08/18 at 09:00; Status UNV Magnesium Oxide (Mag-Ox 400) 400 mg DAILY PO ; Start 10/08/18 at 09:00; Status UNV GENARO SEPULVEDA MD Oct 08, 2018 08:38
[2018-10-08] MEDS: DOXYCYCLINE 100 MG TAB PO SCH ×2 (09:55→20:36)
[2018-10-08] MEDS: MEROPENEM 1 GM/50ML(PMX) 50 ML IVPB SCH ×2 (09:55→20:35)
[2018-10-08] MEDS: ACETAMINOPHEN 325 MG TAB PO PRN ×2 (11:35→22:42)
[2018-10-08] MEDS: ENOXAPARIN 80 MG/0.8 ML SYG SC SCH (13:39)
--- NOTE | 2018-10-08 15:35 | CONS ---
Consult Date/Type/Reason Admit Date/Time Sep 23, 2018 at 07:08 Initial Consult Date 09/25/18 Type of Consult Pulmonary Date/Time of Note DATE: 10/08/18 TIME: 15:34 Subjective Still has shortness of breath on minimal exertion FiO2 at 35%. Objective Vital Signs Date Temp Pulse Resp B/P (MAP) Pulse Ox O2 O2 Flow FiO2 Time Delivery Rate 10/08/18 72 12:42 10/08/18 93 50 12:20 10/08/18 98.2 18 113/57 11:38 (75) 10/08/18 Nasal 08:20 Cannula Intake and Output 10/07/18 10/07/18 10/08/18 1515:00 23:00 07:00 IntakeIntake Total 350 ml 25 ml 400 ml OutputOutput Total 800 ml 950 ml BalanceBalance -450 ml 25 ml -550 ml Exam GENERAL: Elderly lady comfortable at rest no acute distress VITAL SIGNS: per chart NECK: Supple. No JVD or lymphadenopathy. CARDIAC EXAM: S1, S2. No added sounds or murmurs. CHEST: Diminished air entry bilaterally with few rales ABDOMEN: Soft, nontender. No guarding or rebound. EXTREMITIES: No cyanosis, clubbing or edema. NEUROLOGIC: Generalized weakness. No focal deficits. Vent Setting Fraction of Inspired Oxygen pe: 50 Results/Medications Result Diagram: 10/08/1852110/08/18521 Results 24 hrs Laboratory Tests Test 10/07/18 17:19 10/07/18 21:01 10/08/18 05:22 10/08/18 07:39 Bedside Glucose 152 152 148 White Blood Count 7.5 Red Blood Count 3.30 L Hemoglobin 9.1 L Hematocrit 27.7 L Mean Corpuscular 83.9 Volume Mean Corpuscular 27.6 L Hemoglobin Mean Corpuscular 32.9 Hemoglobin Concent Red Cell 13.2 Distribution Width Platelet Count 382 # Mean Platelet Volume 11.8 H Immature 0.900 H Granulocytes % Neutrophils % 64.7 Lymphocytes % 19.7 Monocytes % 11.1 H Eosinophils % 2.8 Basophils % 0.8 Nucleated Red Blood 0.0 Cells % Immature 0.070 H Granulocytes # Neutrophils # 4.8 Lymphocytes # 1.5 Monocytes # 0.8 Eosinophils # 0.2 Basophils # 0.1 Nucleated Red Blood 0.0 Cells # Sodium Level 141 Potassium Level 3.5 Chloride Level 96 L Carbon Dioxide Level 33 H Anion Gap 12 # Blood Urea Nitrogen 23 H Creatinine 0.87 Est Glomerular Filtrat Rate mL/min Glucose Level 152 Calcium Level 9.0 Magnesium Level 1.7 Total Bilirubin 0.4 Direct Bilirubin 0.00 Indirect Bilirubin 0.4 Aspartate Amino 136 H Transf (AST/SGOT) Alanine 172 H Aminotransferase (AL T/SGPT) Alkaline Phosphatase 105 Total Protein 6.1 Albumin 3.1 L Globulin 3.00 Albumin/Globulin 1.03 Ratio Procalcitonin 0.11 H Test 10/08/18 11:37 Bedside Glucose 212 Medications Current Medications Atorvastatin Calcium (Lipitor) 80 mg HS PO Last administered on 10/07/18at 20:58; Admin Dose 80 MG; Start 09/23/18 at 21:00 Aspirin (Halfprin) 81 mg DAILY PO Last administered on 10/08/18at 08:20; Admin Dose 81 MG; Start 09/24/18 at 09:00 IV Flush (NS 3 ml) 3 ml PER PROTOCOL IV ; Start 09/23/18 at 13:00 Lorazepam (Ativan) 0.5 mg Q8H PRN PO .ANXIETY Last administered on 09/26/18at 13:26; Admin Dose 0.5 MG; Start 09/23/18 at 13:00 Ondansetron HCl (Zofran Inj) 4 mg Q6H PRN IV NAUSEA/VOMITING; Start 09/23/18 at 13:00 Acetaminophen (Tylenol Tab) 650 mg Q6H PRN PO .PAIN 1-3 OR TEMP Last admini stered on 10/08/18at 11:35; Admin Dose 650 MG; Start 09/23/18 at 13:00 Zolpidem Tartrate (Ambien) 5 mg QHS PRN PO .INSOMNIA; Start 09/23/18 at 13:00 Docusate Sodium (Colace) 100 mg Q12H PRN PO .CONSTIPATION; Start 09/23/18 at 13:00 Magnesium Hydroxide (Milk Of Mag) 30 ml DAILY PRN PO .CONSTIPATION; Start 09/23/18 at 13:00 Miscellaneous Information 1 ea NOTE XX ; Start 09/23/18 at 13:30 Glucose (Glutose) 15 gm Q15M PRN PO DECREASED GLUCOSE; Start 09/23/18 at 13:30 Glucose (Glutose) 22.5 gm Q15M PRN PO DECREASED GLUCOSE; Start 09/23/18 at 13:30 Dextrose (D50w Syringe) 25 ml Q15M PRN IV DECREASED GLUCOSE; Start 09/23/18 at 13:30 Dextrose (D50w Syringe) 50 ml Q15M PRN IV DECREASED GLUCOSE; Start 09/23/18 at 13:30 Glucagon (Glucagen) 1 mg Q15M PRN IM DECREASED GLUCOSE; Start 09/23/18 at 13:30 Glucose (Glutose) 15 gm Q15M PRN BUCCAL DECREASED GLUCOSE; Start 09/23/18 at 13:30 Enoxaparin Sodium (Lovenox) 75 mg Q24H SC Last administered on 10/08/18 13:39; Admin Dose 75 MG; Start 09/26/18 at 13:00 Lidocaine (Lidoderm) 1 patch DAILY TD Last administered on 10/08/18 08:20; Admin Dose 1 PATCH; Start 09/26/18 at 12:00 Lorazepam (Ativan) 0.5 mg Q4H PRN IV ANXIETY Last administered on 09/29/18 23:01; Admin Dose 0.5 MG; Start 09/26/18 at 19:30 Metoprolol Tartrate (Lopressor) 50 mg BID PO Last administered on 10/08/18 08:20; Admin Dose 50 MG; Start 09/27/18 at 21:00 Felodipine (Plendil) 2.5 mg DAILY PO Last administered on 10/08/18 08:20; Admin Dose 2.5 MG; Start 09/29/18 at 09:00 Famotidine (Pepcid) 20 mg DAILY PO Last administered on 10/08/18 08:20; Admin Dose 20 MG; Start 09/30/18 at 09:00 Guaifenesin/ Codeine Phosphate (Robitussin Ac Liquid Cup) 5 ml Q4H PRN PO COUGH Last administered on 10/06/18 12:56; Admin Dose 5 ML; Start 10/01/18 at 10:30 Insulin Aspart (Novolog Insulin Pen) NOVOLOG *MODERATE* ALGORITHM WITH MEALS BEDTIME SC Last administered on 10/08/18 11:45; Admin Dose 4 UNIT; Start 10/01/18 at 11:30 Diagnostic Test (Pha) (Accu-Chek) 1 ea 02 XX Last administered on 10/05/18 02:00; Admin Dose 1 EA; Start 10/02/18 at 02:00 Eye Lubricant (Artificial Tears Oph) 2 drop PRN PRN BOTH EYES DRY EYES Last administered on 10/06/18 12:56; Admin Dose 2 DROP; Start 10/01/18 at 18:30 Docusate Sodium (Colace) 100 mg BID PO Last administered on 10/07/18 08:49; Admin Dose 100 MG; Start 10/02/18 at 13:00 Insulin Glargine (Lantus) 15 units DAILY@0800 SC Last administered on 10/08/18 07:47; Admin Dose 15 UNITS; Start 10/06/18 at 08:00 Bumetanide 2 mg/ Dextrose 25 ml @ 50 mls/hr BID DIURETICS IV Last administered on 10/08/18 06:26; Admin Dose 50 MLS/HR; Start 10/05/18 at 18:00 Potassium Chloride (Klor-Con 20) 20 meq BID PO Last administered on 10/08/18 08:39; Admin Dose 20 MEQ; Start 10/08/18 at 09:00 Magnesium Oxide (Mag-Ox 400) 400 mg DAILY PO Last administered on 10/08/18 08:38; Admin Dose 400 MG; Start 10/08/18 at 09:00 Meropenem/Sodium Chloride 50 ml @ 100 mls/hr Q12 IVPB Last administered on 10/08/18 09:55; Admin Dose 100 MLS/HR; Start 10/08/18 at 09:00 Doxycycline Hyclate (Vibramycin) 100 mg BID PO Last administered on 10/08/18 09:55; Admin Dose 100 MG; Start 10/08/18 at 09:00 Assessment/Plan Hospital Course (Demo Recall) Assessment 1. Status post acute hypoxemic respiratory failure 2. Congestive cardiac failure 3. Normal procalcitonin level noted. 4. Recent non-ST elevation [place] Plan 1. Continue renal recommendations regarding diuretics 2. No pulmonary embolus but moderate bilateral pleural effusions right greater than left, will order right thoracentesis followed by left. Pleural fluid studies also. 3. ID recommendations Consider Ng evaluation PATEL GRIFFITH MD, [facility] Oct 08, 2018 15:35
[2018-10-08] MEDS: ATORVASTATIN 80 MG TAB PO SCH (20:35)
[2018-10-08] MEDS: LORAZEPAM 0.5 MG TAB PO PRN (22:42)
[2018-10-09] VITALS (7 sets, daily range): BP systolic 126–147; BP diastolic 58–80; PULSE 66–81; RESP 18–20
[2018-10-09] MEDS: ACCUCHECK AT 2AM (Patients on SS coverage) XX SCH (02:00)
[2018-10-09] MEDS: BUMETANIDE 2 MG in DEXTROSE 5% 17 ML IV SCH ×2 (05:37→17:46)
--- NOTE | 2018-10-09 07:17 | CONS ---
Assessment/Plan Assessment/Plan Hospital Course (Demo Recall) 1) CHF, r/o pneumonia on levo/aztreanom since 09/24 check procalcitonin and if <0.25 to d/c aztreanom pt did not have some coryza before her CP and SOB so a viral etiology is possible, will order viral pcr of nares no sputum production so no cx possible but nasal for MRSA was neg of noted WBC normalized prior to start of antibiotics pt is anxious to get off biPAP so that she can drink fluids 09/26 - procalcitonin was elevated, c/w with a bacterial lung process continue with levo/aztreanom at present pt starting to bring up phlegm will order resp culture to repeat procalcitonin 09/27 - vanco was added by pulmonary yesterday, not clear for the reason (decreasing procalcitonin and normal WBC, no fever and neg MRSA screen) currently on levo/aztreanom/vanco CXR this a.m. shows more pulmonary edema and BNP is higher I will order swallow eval for patient sputum cx is normal respiratory radha to date I will sign off on case, pulmonary is managing the antibiotics 10/02 - asked to see pt again slow improvement with CXR and clinically procalcitonin is neg now, to repeat in a.m. d/c vanco/aztreanom and continue with levaquin but change to daily dosing at 250mg check BNP in a.m. too start stool softener (no stools since admission but just started to eat yesterday) 10/03 - continue with levaquin alone but change to po form pt is eating and had a solid stool await a.m. labs 10/06 - stable on oral levaquin, continue thru 10/07 (two week course) procalcitonin remains negative viral PCR was neg 10/08 - CXR and CT confirms new infiltrates to RUL check procalcitonin and start merrem/doxy check ESR and MIGUEL 10/09 - continue with merrem/doxy repeat CXR to see if thorancentesis is still needed ESR is pending 2) increase in LFT's this is much improved, likely it represented liver congestion due to heart failure 3) DM this rapidly improved since admission Consultation Date/Type/Reason Admit Date/Time Sep 23, 2018 at 07:08 Initial Consult Date 09/25/18 Type of Consult ID Date/Time of Note DATE: 10/09/18 TIME: 07:15 24 HR Interval Summary Free Text/Dictation pt's breathing is improved, now on NC only which was maintained overnight no N, V, D Exam/Review of Systems Exam Vitals Vital Signs Date Temp Pulse Resp B/P (MAP) Pulse Ox O2 O2 Flow FiO2 Time Delivery Rate 10/09/18 98.0 75 18 129/62 95 04:00 (84) 10/09/18 Nasal 5.0 03:57 Cannula 10/09/18 40 03:55 Intake and Output 10/08/18 10/08/18 10/09/18 1515:00 23:00 07:00 IntakeIntake Total 1000 ml 450 ml 300 ml OutputOutput Total 1300 ml 550 ml 800 ml BalanceBalance -300 ml -100 ml -500 ml Constitutional: alert, oriented ENMT: mucosa pink and moist Respiratory: clear to auscultation Cardiovascular: regular rate and rhythm Gastrointestinal: soft, non-tender Results Result Diagram: 10/09/18 0513 10/08/18 0522 Results 24hrs Laboratory Tests Test 10/08/18 07:39 10/08/18 11:37 10/08/18 15:55 10/08/18 16:57 Bedside Glucose 148 212 104 Platelet Count 443 H Prothrombin Time 15.4 H Prothrombin Time 1.2 Ratio INR International 1.21 Normalized Ratio Activated 44.9 H Partial Thromboplast Time Thrombin Time 19.5 H Test 10/08/18 20:34 10/09/18 05:13 Bedside Glucose 176 White Blood Count 6.3 Red Blood Count 3.36 L Hemoglobin 9.3 L Hematocrit 28.8 L Mean Corpuscular 85.7 Volume Mean Corpuscular 27.7 L Hemoglobin Mean Corpuscular 32.3 Hemoglobin Concent Red Cell 13.4 Distribution Width Platelet Count 439 H Mean Platelet Volume 11.7 H Immature 1.100 H Granulocytes % Neutrophils % 59.7 Lymphocytes % 24.1 Monocytes % 11.1 H Eosinophils % 3.2 Basophils % 0.8 Nucleated Red Blood 0.0 Cells % Immature 0.070 H Granulocytes # Neutrophils # 3.8 Lymphocytes # 1.5 Monocytes # 0.7 Eosinophils # 0.2 Basophils # 0.1 Nucleated Red Blood 0.0 Cells # Medications Medication Current Medications Atorvastatin Calcium (Lipitor) 80 mg HS PO Last administered on 10/08/18at 20:35; Admin Dose 80 MG; Start 09/23/18 at 21:00 Aspirin (Halfprin) 81 mg DAILY PO Last administered on 10/08/18at 08:20; Admin Dose 81 MG; Start 09/24/18 at 09:00 IV Flush (NS 3 ml) 3 ml PER PROTOCOL IV ; Start 09/23/18 at 13:00 Lorazepam (Ativan) 0.5 mg Q8H PRN PO .ANXIETY Last administered on 10/08/18at 22:42; Admin Dose 0.5 MG; Start 09/23/18 at 13:00 Ondansetron HCl (Zofran Inj) 4 mg Q6H PRN IV NAUSEA/VOMITING; Start 09/23/18 at 13:00 Acetaminophen (Tylenol Tab) 650 mg Q6H PRN PO .PAIN 1-3 OR TEMP Last administered on 10/08/18at 22:42; Admin Dose 650 MG; Start 09/23/18 at 13:00 Zolpidem Tartrate (Ambien) 5 mg QHS PRN PO .INSOMNIA; Start 09/23/18 at 13:00 Docusate Sodium (Colace) 100 mg Q12H PRN PO .CONSTIPATION; Start 09/23/18 at 13:00 Magnesium Hydroxide (Milk Of Mag) 30 ml DAILY PRN PO .CONSTIPATION; Start 09/23/18 at 13:00 Miscellaneous Information 1 ea NOTE XX ; Start 09/23/18 at 13:30 Glucose (Glutose) 15 gm Q15M PRN PO DECREASED GLUCOSE; Start 09/23/18 at 13:30 Glucose (Glutose) 22.5 gm Q15M PRN PO DECREASED GLUCOSE; Start 09/23/18 at 13:30 Dextrose (D50w Syringe) 25 ml Q15M PRN IV DECREASED GLUCOSE; Start 09/23/18 at 13:30 Dextrose (D50w Syringe) 50 ml Q15M PRN IV DECREASED GLUCOSE; Start 09/23/18 at 13:30 Glucagon (Glucagen) 1 mg Q15M PRN IM DECREASED GLUCOSE; Start 09/23/18 at 13:30 Glucose (Glutose) 15 gm Q15M PRN BUCCAL DECREASED GLUCOSE; Start 09/23/18 at 13:30 Enoxaparin Sodium (Lovenox) 75 mg Q24H SC Last administered on 10/08/18 13:39; Admin Dose 75 MG; Start 09/26/18 at 13:00 Lidocaine (Lidoderm) 1 patch DAILY TD Last administered on 10/08/18 08:20; Admin Dose 1 PATCH; Start 09/26/18 at 12:00 Lorazepam (Ativan) 0.5 mg Q4H PRN IV ANXIETY Last administered on 09/29/18 23:01; Admin Dose 0.5 MG; Start 09/26/18 at 19:30 Metoprolol Tartrate (Lopressor) 50 mg BID PO Last administered on 10/08/18 20:36; Admin Dose 50 MG; Start 09/27/18 at 21:00 Felodipine (Plendil) 2.5 mg DAILY PO Last administered on 10/08/18 08:20; Admin Dose 2.5 MG; Start 09/29/18 at 09:00 Famotidine (Pepcid) 20 mg DAILY PO Last administered on 10/08/18 08:20; Admin Dose 20 MG; Start 09/30/18 at 09:00 Guaifenesin/ Codeine Phosphate (Robitussin Ac Liquid Cup) 5 ml Q4H PRN PO COUGH Last administered on 10/06/18 12:56; Admin Dose 5 ML; Start 10/01/18 at 10:30 Insulin Aspart (Novolog Insulin Pen) NOVOLOG *MODERATE* ALGORITHM WITH MEALS BEDTIME SC Last administered on 10/08/18 11:45; Admin Dose 4 UNIT; Start 10/01/18 at 11:30 Diagnostic Test (Pha) (Accu-Chek) 1 ea 02 XX Last administered on 10/05/18 02:00; Admin Dose 1 EA; Start 10/02/18 at 02:00 Eye Lubricant (Artificial Tears Oph) 2 drop PRN PRN BOTH EYES DRY EYES Last administered on 10/06/18 12:56; Admin Dose 2 DROP; Start 10/01/18 at 18:30 Docusate Sodium (Colace) 100 mg BID PO Last administered on 10/08/18 20:35; Admin Dose 100 MG; Start 10/02/18 at 13:00 Insulin Glargine (Lantus) 15 units DAILY@0800 SC Last administered on 10/08/18 07:47; Admin Dose 15 UNITS; Start 10/06/18 at 08:00 Bumetanide 2 mg/ Dextrose 25 ml @ 50 mls/hr BID DIURETICS IV Last administered on 10/09/18 05:37; Admin Dose 50 MLS/HR; Start 10/05/18 at 18:00 Potassium Chloride (Klor-Con 20) 20 meq BID PO Last administered on 10/08/18 20:35; Admin Dose 20 MEQ; Start 10/08/18 at 09:00 Magnesium Oxide (Mag-Ox 400) 400 mg DAILY PO Last administered on 10/08/18 08:38; Admin Dose 400 MG; Start 10/08/18 at 09:00 Meropenem/Sodium Chloride 50 ml @ 100 mls/hr Q12 IVPB Last administered on 10/08/18 20:35; Admin Dose 100 MLS/HR; Start 10/08/18 at 09:00 Doxycycline Hyclate (Vibramycin) 100 mg BID PO Last administered on 10/08/18 20:36; Admin Dose 100 MG; Start 10/08/18 at 09:00 HARPREET HALE MD Oct 09, 2018 07:17
[2018-10-09] MEDS: INSULIN GLARGINE [LANTus] (100 UNITS/ML) SYG SC SCH (07:41)
[2018-10-09] MEDS: INSULIN ASPART [NOVOLOG] 3 ML PEN SC SCH ×4 (07:42→22:39)
--- NOTE | 2018-10-09 08:49 | CONS ---
Assessment/Plan Assessment/Plan Hospital Course (Demo Recall) ASSESSMENT: 1. Multi lobar broncho pneumonia possible ARDS w component of possible acute d iastolic HF 2. Non-ST elevation myocardial infarction. 3. Hypertension. 4. Type 2 diabetes. 5. Mild to moderate aortic stenosis. 6. Acute diastolic heart failure. 7. Gout. 8. Normocytic anemia. 9. Hyperlipidemia. 10 History of breast cancer. 11. Renal insufficiency. 12. PAF- < 24hr, converted to nsr. PLAN: 1. Continue diuresis on bumex. goal 1-2L. bnp remains elevate. repeat limited e cho tomorrow 2. continue asa/statin/felodipine 3. watch electrolytes 4. tele without recurrent afib, monitor 5. resp mgmt per pulm. consider LHC when pt stable/recovered from pulm process possibly early next week 6. ok to hold atorvastatin given elevated lft, trend Consultation Date/Type/Reason Admit Date/Time Sep 23, 2018 at 07:08 Initial Consult Date 09/25/18 Date/Time of Note DATE: 10/09/18 TIME: 08:42 24 HR Interval Summary Free Text/Dictation no acute events. breathing stable, improved. off high flow o2. no chest pain tele reviewed nsr no afib Detailed Summary Eyes: no complaints ENT: no complaints Respiratory: shortness of breath Cardiovascular: no complaints Gastrointestinal: no complaints Exam/Review of Systems Exam Vitals Vital Signs Date Temp Pulse Resp B/P (MAP) Pulse Ox O2 O2 Flow FiO2 Time Delivery Rate 10/09/18 98.2 81 20 147/80 95 Nasal 07:45 (102) Cannula 10/09/18 5.0 03:57 10/09/18 40 03:55 Intake and Output 10/08/18 10/08/18 10/09/18 1515:00 23:00 07:00 IntakeIntake Total 1000 ml 450 ml 300 ml OutputOutput Total 1300 ml 550 ml 800 ml BalanceBalance -300 ml -100 ml -500 ml Exam HEENT; no JVD, no HJR, carotids 2 over 4+ without bruits. Chest: coarse Cardiac: S4, S1, S2 with normal physiologic splitting, 2/6 early to mid peaking systolic ejection murmur, no rub click or diastolic murmur noted. Abdominal: Bowel sounds positive, soft nontender, no abdominal bruit noted, no hepatosplenomegaly. Extremities: No cyanosis, clubbing, or edema. Negative Homans sign or palpable cords. Pulses: 2/4 pulses diffusely no bruits noted. Results Result Diagram: 10/09/18 0513 10/09/18 0513 Results 24hrs Laboratory Tests Test 10/08/18 11:37 10/08/18 15:55 10/08/18 16:57 10/08/18 20:34 Bedside Glucose 212 104 176 Platelet Count 443 H Prothrombin Time 15.4 H Prothrombin Time 1.2 Ratio INR International 1.21 Normalized Ratio Activated 44.9 H Partial Thromboplast Time Thrombin Time 19.5 H Test 10/09/18 05:13 10/09/18 07:29 White Blood Count 6.3 Red Blood Count 3.36 L Hemoglobin 9.3 L Hematocrit 28.8 L Mean Corpuscular 85.7 Volume Mean Corpuscular 27.7 L Hemoglobin Mean Corpuscular 32.3 Hemoglobin Concent Red Cell 13.4 Distribution Width Platelet Count 439 H Mean Platelet Volume 11.7 H Immature 1.100 H Granulocytes % Neutrophils % 59.7 Lymphocytes % 24.1 Monocytes % 11.1 H Eosinophils % 3.2 Basophils % 0.8 Nucleated Red Blood 0.0 Cells % Immature 0.070 H Granulocytes # Neutrophils # 3.8 Lymphocytes # 1.5 Monocytes # 0.7 Eosinophils # 0.2 Basophils # 0.1 Nucleated Red Blood 0.0 Cells # Sodium Level 140 Potassium Level 4.6 Chloride Level 98 Carbon Dioxide Level 35 H Anion Gap 7 Blood Urea Nitrogen 24 H Creatinine 0.97 Est Glomerular Filtrat Rate mL/min Glucose Level 127 Calcium Level 8.9 Total Bilirubin 0.3 Direct Bilirubin 0.00 Indirect Bilirubin 0.3 Aspartate Amino 162 H Transf (AST/SGOT) Alanine 210 H Aminotransferase (AL T/SGPT) Alkaline Phosphatase 114 Total Protein 6.5 Albumin 3.2 L Globulin 3.30 H Albumin/Globulin 0.96 Ratio Procalcitonin 0.10 Bedside Glucose 149 Imaging Imaging cxr report reviewed chest ct No pulmonary embolism. No thoracic aortic aneurysm or dissection. Vascular calcifications with cardiomegaly. Bilateral pleural effusions. Coarse confluent interstitial infiltrates upper lo bes compatible with bronchopneumonia. Atelectasis dependent portion lower lobes. Medications Medication Current Medications Aspirin (Halfprin) 81 mg DAILY PO Last administered on 10/08/18 08:20; Admin Dose 81 MG; Start 09/24/18 at 09:00 IV Flush (NS 3 ml) 3 ml PER PROTOCOL IV ; Start 09/23/18 at 13:00 Lorazepam (Ativan) 0.5 mg Q8H PRN PO .ANXIETY Last administered on 10/08/18 22:42; Admin Dose 0.5 MG; Start 09/23/18 at 13:00 Ondansetron HCl (Zofran Inj) 4 mg Q6H PRN IV NAUSEA/VOMITING; Start 09/23/18 at 13:00 Acetaminophen (Tylenol Tab) 650 mg Q6H PRN PO .PAIN 1-3 OR TEMP Last administered on 10/08/18 22:42; Admin Dose 650 MG; Start 09/23/18 at 13:00 Zolpidem Tartrate (Ambien) 5 mg QHS PRN PO .INSOMNIA; Start 09/23/18 at 13:00 Docusate Sodium (Colace) 100 mg Q12H PRN PO .CONSTIPATION; Start 09/23/18 at 13:00 Magnesium Hydroxide (Milk Of Mag) 30 ml DAILY PRN PO .CONSTIPATION; Start 09/23/18 at 13:00 Miscellaneous Information 1 ea NOTE XX ; Start 09/23/18 at 13:30 Glucose (Glutose) 15 gm Q15M PRN PO DECREASED GLUCOSE; Start 09/23/18 at 13:30 Glucose (Glutose) 22.5 gm Q15M PRN PO DECREASED GLUCOSE; Start 09/23/18 at 13 :30 Dextrose (D50w Syringe) 25 ml Q15M PRN IV DECREASED GLUCOSE; Start 09/23/18 at 13:30 Dextrose (D50w Syringe) 50 ml Q15M PRN IV DECREASED GLUCOSE; Start 09/23/18 at 13:30 Glucagon (Glucagen) 1 mg Q15M PRN IM DECREASED GLUCOSE; Start 09/23/18 at 13:30 Glucose (Glutose) 15 gm Q15M PRN BUCCAL DECREASED GLUCOSE; Start 09/23/18 at 13:30 Enoxaparin Sodium (Lovenox) 75 mg Q24H SC Last administered on 10/08/18at 13:39; Admin Dose 75 MG; Start 09/26/18 at 13:00 Lidocaine (Lidoderm) 1 patch DAILY TD Last administered on 10/08/18 08:20; Admin Dose 1 PATCH; Start 09/26/18 at 12:00 Lorazepam (Ativan) 0.5 mg Q4H PRN IV ANXIETY Last administered on 09/29/18 23:01; Admin Dose 0.5 MG; Start 09/26/18 at 19:30 Metoprolol Tartrate (Lopressor) 50 mg BID PO Last administered on 10/08/18 20:36; Admin Dose 50 MG; Start 09/27/18 at 21:00 Felodipine (Plendil) 2.5 mg DAILY PO Last administered on 10/08/18 08:20; Admin Dose 2.5 MG; Start 09/29/18 at 09:00 Famotidine (Pepcid) 20 mg DAILY PO Last administered on 10/08/18 08:20; Admin Dose 20 MG; Start 09/30/18 at 09:00 Guaifenesin/ Codeine Phosphate (Robitussin Ac Liquid Cup) 5 ml Q4H PRN PO COUGH Last administered on 10/06/18 12:56; Admin Dose 5 ML; Start 10/01/18 at 10:30 Insulin Aspart (Novolog Insulin Pen) NOVOLOG *MODERATE* ALGORITHM WITH MEALS BEDTIME SC Last administered on 10/09/18 07:42; Admin Dose 2 UNIT; Start 10/01/18 at 11:30 Diagnostic Test (Pha) (Accu-Chek) 1 ea 02 XX Last administered on 10/05/18 02:00; Admin Dose 1 EA; Start 10/02/18 at 02:00 Eye Lubricant (Artificial Tears Oph) 2 drop PRN PRN BOTH EYES DRY EYES Last administered on 10/06/18 12:56; Admin Dose 2 DROP; Start 10/01/18 at 18:30 Docusate Sodium (Colace) 100 mg BID PO Last administered on 10/08/18 20:35; Admin Dose 100 MG; Start 10/02/18 at 13:00 Insulin Glargine (Lantus) 15 units DAILY@0800 SC Last administered on 10/09/18 07:41; Admin Dose 15 UNITS; Start 10/06/18 at 08:00 Bumetanide 2 mg/ Dextrose 25 ml @ 50 mls/hr BID DIURETICS IV Last administered on 10/09/18 05:37; Admin Dose 50 MLS/HR; Start 10/05/18 at 18:00 Magnesium Oxide (Mag-Ox 400) 400 mg DAILY PO Last administered on 10/08/18at 08:38; Admin Dose 400 MG; Start 10/08/18 at 09:00 Meropenem/Sodium Chloride 50 ml @ 100 mls/hr Q12 IVPB Last administered on 10/08/18at 20:35; Admin Dose 100 MLS/HR; Start 10/08/18 at 09:00 Doxycycline Hyclate (Vibramycin) 100 mg BID PO Last administered on 10/08/18at 20:36; Admin Dose 100 MG; Start 10/08/18 at 09:00 YAIMA BARROW Oct 09, 2018 08:49
--- NOTE | 2018-10-09 09:10 | PN ---
Date/Time of Note Date/Time of Note DATE: 10/09/18 TIME: 08:48 Assessment/Plan VTE Prophylaxis Risk score (from [facility])>0 risk: 4 SCD applied (from [facility]): Yes Pharmacological prophylaxis: LMWH Pharm contraindication: other Lines/Catheters IV Catheter Type (from [facility]): Saline [facility] Urinary Cath still in place: Yes Reason Cath still needed: urinary retention Assessment/Plan Hospital Course 1. Congestive heart failure /pneumonia. She is improved clinically. she is on IV Bumex and has been in negative fluid balance.Her chest X ray done yes terday ; however , does show new infiltrates , CT of chest shows infiltrates consistent with bronchopneumonia and pleural effusions . ID to start antibiotics . 2. Renal failure. Her serum creatinine is normal and stable. 3. Respiratory failure . She is now off high flow oxygen . 4. She is being seen by cardiology for elevated troponin levels which have now come down. They are considering a left heart catheterization. 5. History of hypertension 6. Type 2 diabetes mellitus, blood sugars have been lower. She is now on on a dose of Lantus in addition to the sliding scale Humalog coverage. 7. Iron deficiency anemia. Patient has finished a course of Ferrlicit, IV iron replacement. 8. Atrial fibrillation, she has now converted to sinus rhythm.. 9. She has elevated liver enzymes. I will stop atorvastatin and will order an abdominal ultrasound to check liver. Result Diagram: 10/09/18 0513 10/09/18 05 Results 24hrs Laboratory Tests Test 10/08/18 11:37 10/08/18 15:55 10/08/18 16:57 10/08/18 20:34 Bedside Glucose 212 104 176 Platelet Count 443 H Prothrombin Time 15.4 H Prothrombin Time 1.2 Ratio INR International 1.21 Normalized Ratio Activated 44.9 H Partial Thromboplast Time Thrombin Time 19.5 H Test 10/09/18 05:13 10/09/18 07:29 White Blood Count 6.3 Red Blood Count 3.36 L Hemoglobin 9.3 L Hematocrit 28.8 L Mean Corpuscular 85.7 Volume Mean Corpuscular 27.7 L Hemoglobin Mean Corpuscular 32.3 Hemoglobin Concent Red Cell 13.4 Distribution Width Platelet Count 439 H Mean Platelet Volume 11.7 H Immature 1.100 H Granulocytes % Neutrophils % 59.7 Lymphocytes % 24.1 Monocytes % 11.1 H Eosinophils % 3.2 Basophils % 0.8 Nucleated Red Blood 0.0 Cells % Immature 0.070 H Granulocytes # Neutrophils # 3.8 Lymphocytes # 1.5 Monocytes # 0.7 Eosinophils # 0.2 Basophils # 0.1 Nucleated Red Blood 0.0 Cells # Erythrocyte 128 H Sedimentation Rate Sodium Level 140 Potassium Level 4.6 Chloride Level 98 Carbon Dioxide Level 35 H Anion Gap 7 Blood Urea Nitrogen 24 H Creatinine 0.97 Est Glomerular Filtrat Rate mL/min Glucose Level 127 Calcium Level 8.9 Total Bilirubin 0.3 Direct Bilirubin 0.00 Indirect Bilirubin 0.3 Aspartate Amino 162 H Transf (AST/SGOT) Alanine 210 H Aminotransferase (AL T/SGPT) Alkaline Phosphatase 114 Total Protein 6.5 Albumin 3.2 L Globulin 3.30 H Albumin/Globulin 0.96 Ratio Procalcitonin 0.10 Bedside Glucose 149 Subjective 24 Hr Interval Summary Free Text/Dictation Mandi is awake and alert today. She is now off high flow oxygen and just on regular nasal cannula oxygen. She has less of a cough. She is overall feeling better. Constitutional: no complaints, improved Respiratory: cough, shortness of breath Cardiovascular: no complaints Genitourinary: no complaints Musculoskeletal: no complaints Skin: no complaints Exam/Review of Systems Exam Vitals Vital Signs Date Temp Pulse Resp B/P (MAP) Pulse Ox O2 O2 Flow FiO2 Time Delivery Rate 10/09/18 98.2 81 20 147/80 95 Nasal 07:45 (102) Cannula 10/09/18 5.0 03:57 10/09/18 40 03:55 Intake and Output 10/08/18 10/08/18 10/09/18 1515:00 23:00 07:00 IntakeIntake Total 1000 ml 450 ml 300 ml OutputOutput Total 1300 ml 550 ml 800 ml BalanceBalance -300 ml -100 ml -500 ml Constitutional: alert, oriented, frail ENMT: nl external ears & nose Neck: supple Respiratory: congested cough, diminished breath sounds Cardiovascular: regular rate and rhythm Gastrointestinal: soft, non-tender Musculoskeletal: nl extremities to inspection Results Results 24hrs Laboratory Tests Test 10/08/18 11:37 10/08/18 15:55 10/08/18 16:57 10/08/18 20:34 Bedside Glucose 212 104 176 Platelet Count 443 H Prothrombin Time 15.4 H Prothrombin Time 1.2 Ratio INR International 1.21 Normalized Ratio Activated 44.9 H Partial Thromboplast Time Thrombin Time 19.5 H Test 10/09/18 05:13 10/09/18 07:29 White Blood Count 6.3 Red Blood Count 3.36 L Hemoglobin 9.3 L Hematocrit 28.8 L Mean Corpuscular 85.7 Volume Mean Corpuscular 27.7 L Hemoglobin Mean Corpuscular 32.3 Hemoglobin Concent Red Cell 13.4 Distribution Width Platelet Count 439 H Mean Platelet Volume 11.7 H Immature 1.100 H Granulocytes % Neutrophils % 59.7 Lymphocytes % 24.1 Monocytes % 11.1 H Eosinophils % 3.2 Basophils % 0.8 Nucleated Red Blood 0.0 Cells % Immature 0.070 H Granulocytes # Neutrophils # 3.8 Lymphocytes # 1.5 Monocytes # 0.7 Eosinophils # 0.2 Basophils # 0.1 Nucleated Red Blood 0.0 Cells # Erythrocyte 128 H Sedimentation Rate Sodium Level 140 Potassium Level 4.6 Chloride Level 98 Carbon Dioxide Level 35 H Anion Gap 7 Blood Urea Nitrogen 24 H Creatinine 0.97 Est Glomerular Filtrat Rate mL/min Glucose Level 127 Calcium Level 8.9 Total Bilirubin 0.3 Direct Bilirubin 0.00 Indirect Bilirubin 0.3 Aspartate Amino 162 H Transf (AST/SGOT) Alanine 210 H Aminotransferase (AL T/SGPT) Alkaline Phosphatase 114 Total Protein 6.5 Albumin 3.2 L Globulin 3.30 H Albumin/Globulin 0.96 Ratio Procalcitonin 0.10 Bedside Glucose 149 Medications Medication Current Medications Aspirin (Halfprin) 81 mg DAILY PO Last administered on 10/08/18at 08:20; Admin Dose 81 MG; Start 09/24/18 at 09:00 IV Flush (NS 3 ml) 3 ml PER PROTOCOL IV ; Start 09/23/18 at 13:00 Lorazepam (Ativan) 0.5 mg Q8H PRN PO .ANXIETY Last administered on 10/08/18at 22:42; Admin Dose 0.5 MG; Start 09/23/18 at 13:00 Ondansetron HCl (Zofran Inj) 4 mg Q6H PRN IV NAUSEA/VOMITING; Start 09/23/18 at 13:00 Acetaminophen (Tylenol Tab) 650 mg Q6H PRN PO .PAIN 1-3 OR TEMP Last administered on 10/08/18at 22:42; Admin Dose 650 MG; Start 09/23/18 at 13:00 Zolpidem Tartrate (Ambien) 5 mg QHS PRN PO .INSOMNIA; Start 09/23/18 at 13:00 Docusate Sodium (Colace) 100 mg Q12H PRN PO .CONSTIPATION; Start 09/23/18 at 13:00 Magnesium Hydroxide (Milk Of Mag) 30 ml DAILY PRN PO .CONSTIPATION; Start 09/23/18 at 13:00 Miscellaneous Information 1 ea NOTE XX ; Start 09/23/18 at 13:30 Glucose (Glutose) 15 gm Q15M PRN PO DECREASED GLUCOSE; Start 09/23/18 at 13:30 Glucose (Glutose) 22.5 gm Q15M PRN PO DECREASED GLUCOSE; Start 09/23/18 at 13:30 Dextrose (D50w Syringe) 25 ml Q15M PRN IV DECREASED GLUCOSE; Start 09/23/18 at 13:30 Dextrose (D50w Syringe) 50 ml Q15M PRN IV DECREASED GLUCOSE; Start 09/23/18 at 13:30 Glucagon (Glucagen) 1 mg Q15M PRN IM DECREASED GLUCOSE; Start 09/23/18 at 13:30 Glucose (Glutose) 15 gm Q15M PRN BUCCAL DECREASED GLUCOSE; Start 09/23/18 at 13:30 Enoxaparin Sodium (Lovenox) 75 mg Q24H SC Last administered on 10/08/18at 13:39; Admin Dose 75 MG; Start 09/26/18 at 13:00 Lidocaine (Lidoderm) 1 patch DAILY TD Last administered on 10/08/18at 08:20; Admin Dose 1 PATCH; Start 09/26/18 at 12:00 Lorazepam (Ativan) 0.5 mg Q4H PRN IV ANXIETY Last administered on 09/29/18at 23:01; Admin Dose 0.5 MG; Start 09/26/18 at 19:30 Metoprolol Tartrate (Lopressor) 50 mg BID PO Last administered on 10/08/18at 20:36; Admin Dose 50 MG; Start 09/27/18 at 21:00 Felodipine (Plendil) 2.5 mg DAILY PO Last administered on 10/08/18at 08:20; Admin Dose 2.5 MG; Start 09/29/18 at 09:00 Famotidine (Pepcid) 20 mg DAILY PO Last administered on 10/08/18 08:20; Admin Dose 20 MG; Start 09/30/18 at 09:00 Guaifenesin/ Codeine Phosphate (Robitussin Ac Liquid Cup) 5 ml Q4H PRN PO COUGH Last administered on 10/06/18 12:56; Admin Dose 5 ML; Start 10/01/18 at 10:30 Insulin Aspart (Novolog Insulin Pen) NOVOLOG *MODERATE* ALGORITHM WITH MEALS BEDTIME SC Last administered on 10/09/18 07:42; Admin Dose 2 UNIT; Start 10/01/18 at 11:30 Diagnostic Test (Pha) (Accu-Chek) 1 ea 02 XX Last administered on 10/05/18 02:00; Admin Dose 1 EA; Start 10/02/18 at 02:00 Eye Lubricant (Artificial Tears Oph) 2 drop PRN PRN BOTH EYES DRY EYES Last administered on 10/06/18 12:56; Admin Dose 2 DROP; Start 10/01/18 at 18:30 Docusate Sodium (Colace) 100 mg BID PO Last administered on 10/08/18 20:35; Admin Dose 100 MG; Start 10/02/18 at 13:00 Insulin Glargine (Lantus) 15 units DAILY@0800 SC Last administered on 10/09/18 07:41; Admin Dose 15 UNITS; Start 10/06/18 at 08:00 Bumetanide 2 mg/ Dextrose 25 ml @ 50 mls/hr BID DIURETICS IV Last administered on 10/09/18 05:37; Admin Dose 50 MLS/HR; Start 10/05/18 at 18:00 Magnesium Oxide (Mag-Ox 400) 400 mg DAILY PO Last administered on 10/08/18 08:38; Admin Dose 400 MG; Start 10/08/18 at 09:00 Meropenem/Sodium Chloride 50 ml @ 100 mls/hr Q12 IVPB Last administered on 10/08/18 20:35; Admin Dose 100 MLS/HR; Start 10/08/18 at 09:00 Doxycycline Hyclate (Vibramycin) 100 mg BID PO Last administered on 10/08/18 20:36; Admin Dose 100 MG; Start 10/08/18 at 09:00 GENARO SEPULVEDA MD 27, 2019 09:03
[2018-10-09] MEDS: LIDOCAINE 5% PATCH TD SCH (10:10)
[2018-10-09] MEDS: DOXYCYCLINE 100 MG TAB PO SCH ×2 (10:11→21:59)
[2018-10-09] MEDS: ASPIRIN (EC) 81 MG TAB PO SCH (10:11)
[2018-10-09] MEDS: MEROPENEM 1 GM/50ML(PMX) 50 ML IVPB SCH ×2 (10:11→21:59)
[2018-10-09] MEDS: FAMOTIDINE 20 MG TAB PO SCH (10:11)
[2018-10-09] MEDS: DOCUSATE SODIUM 100 MG CAP PO SCH ×2 (10:13→21:59)
[2018-10-09] MEDS: METOPROLOL 50 MG TAB PO SCH ×2 (10:13→22:00)
[2018-10-09] MEDS: MAGNESIUM OXIDE 400 MG TAB PO SCH (10:13)
[2018-10-09] MEDS: FELODIPINE (ER) 2.5 MG TAB PO SCH (10:16)
--- NOTE | 2018-10-09 11:44 | CONS ---
Consult Date/Type/Reason Admit Date/Time Sep 23, 2018 at 07:08 Initial Consult Date 09/25/18 Type of Consult Pulmonary Date/Time of Note DATE: 10/09/18 TIME: 11:43 Subjective Patient comfortable this morning. Ultrasound demonstrated and not enough effusion for thoracentesis in the right lung. Objective Vital Signs Date Temp Pulse Resp B/P (MAP) Pulse Ox O2 O2 Flow FiO2 Time Delivery Rate 10/09/18 98 5.0 40 09:42 10/09/18 98.2 81 20 147/80 Nasal 07:45 (102) Cannula Intake and Output 10/08/18 10/08/18 10/09/18 1515:00 23:00 07:00 IntakeIntake Total 1000 ml 450 ml 300 ml OutputOutput Total 1300 ml 550 ml 800 ml BalanceBalance -300 ml -100 ml -500 ml Exam GENERAL: Elderly lady comfortable at rest no acute distress VITAL SIGNS: per chart NECK: Supple. No JVD or lymphadenopathy. CARDIAC EXAM: S1, S2. No added sounds or murmurs. CHEST: Diminished air entry bilaterally with few rales ABDOMEN: Soft, nontender. No guarding or rebound. EXTREMITIES: No cyanosis, clubbing or edema. NEUROLOGIC: Generalized weakness. No focal deficits. Vent Setting Fraction of Inspired Oxygen pe: 40 Results/Medications Result Diagram: 10/09/18 0513 10/09/18 0513 Results 24 hrs Laboratory Tests Test 10/08/18 15:55 10/08/18 16:57 10/08/18 20:34 10/09/18 05:13 Platelet Count 443 H 439 H Prothrombin Time 15.4 H Prothrombin Time 1.2 Ratio INR International 1.21 Normalized Ratio Activated 44.9 H Partial Thromboplast Time Thrombin Time 19.5 H Bedside Glucose 104 176 White Blood Count 6.3 Red Blood Count 3.36 L Hemoglobin 9.3 L Hematocrit 28.8 L Mean Corpuscular 85.7 Volume Mean Corpuscular 27.7 L Hemoglobin Mean Corpuscular 32.3 Hemoglobin Concent Red Cell 13.4 Distribution Width Mean Platelet Volume 11.7 H Immature 1.100 H Granulocytes % Neutrophils % 59.7 Lymphocytes % 24.1 Monocytes % 11.1 H Eosinophils % 3.2 Basophils % 0.8 Nucleated Red Blood 0.0 Cells % Immature 0.070 H Granulocytes # Neutrophils # 3.8 Lymphocytes # 1.5 Monocytes # 0.7 Eosinophils # 0.2 Basophils # 0.1 Nucleated Red Blood 0.0 Cells # Erythrocyte 128 H Sedimentation Rate Sodium Level 140 Potassium Level 4.6 Chloride Level 98 Carbon Dioxide Level 35 H Anion Gap 7 Blood Urea Nitrogen 24 H Creatinine 0.97 Est Glomerular Filtrat Rate mL/min Glucose Level 127 Calcium Level 8.9 Total Bilirubin 0.3 Direct Bilirubin 0.00 Indirect Bilirubin 0.3 Aspartate Amino 162 H Transf (AST/SGOT) Alanine 210 H Aminotransferase (AL T/SGPT) Alkaline Phosphatase 114 Total Protein 6.5 Albumin 3.2 L Globulin 3.30 H Albumin/Globulin 0.96 Ratio Procalcitonin 0.10 Test 10/09/18 07:29 Bedside Glucose 149 Medications Current Medications Aspirin (Halfprin) 81 mg DAILY PO Last administered on 10/09/18at 10:11; Admin Dose 81 MG; Start 09/24/18 at 09:00 IV Flush (NS 3 ml) 3 ml PER PROTOCOL IV ; Start 09/23/18 at 13:00 Lorazepam (Ativan) 0.5 mg Q8H PRN PO .ANXIETY Last administered on 10/08/18at 22:42; Admin Dose 0.5 MG; Start 09/23/18 at 13:00 Ondansetron HCl (Zofran Inj) 4 mg Q6H PRN IV NAUSEA/VOMITING; Start 09/23/18 at 13:00 Acetaminophen (Tylenol Tab) 650 mg Q6H PRN PO .PAIN 1-3 OR TEMP Last administered on 10/08/18at 22:42; Admin Dose 650 MG; Start 09/23/18 at 13:00 Zolpidem Tartrate (Ambien) 5 mg QHS PRN PO .INSOMNIA; Start 09/23/18 at 13:00 Docusate Sodium (Colace) 100 mg Q12H PRN PO .CONSTIPATION; Start 09/23/18 at 13:00 Magnesium Hydroxide (Milk Of Mag) 30 ml DAILY PRN PO .CONSTIPATION; Start 09/23/18 at 13:00 Miscellaneous Information 1 ea NOTE XX ; Start 09/23/18 at 13:30 Glucose (Glutose) 15 gm Q15M PRN PO DECREASED GLUCOSE; Start 09/23/18 at 13:30 Glucose (Glutose) 22.5 gm Q15M PRN PO DECREASED GLUCOSE; Start 09/23/18 at 13:30 Dextrose (D50w Syringe) 25 ml Q15M PRN IV DECREASED GLUCOSE; Start 09/23/18 at 13:30 Dextrose (D50w Syringe) 50 ml Q15M PRN IV DECREASED GLUCOSE; Start 09/23/18 at 13:30 Glucagon (Glucagen) 1 mg Q15M PRN IM DECREASED GLUCOSE; Start 09/23/18 at 13:30 Glucose (Glutose) 15 gm Q15M PRN BUCCAL DECREASED GLUCOSE; Start 09/23/18 at 13:30 Enoxaparin Sodium (Lovenox) 75 mg Q24H SC Last administered on 10/08/18 13:39; Admin Dose 75 MG; Start 09/26/18 at 13:00 Lidocaine (Lidoderm) 1 patch DAILY TD Last administered on 10/09/18 10:10; A dmin Dose 1 PATCH; Start 09/26/18 at 12:00 Lorazepam (Ativan) 0.5 mg Q4H PRN IV ANXIETY Last administered on 09/29/18 23:01; Admin Dose 0.5 MG; Start 09/26/18 at 19:30 Metoprolol Tartrate (Lopressor) 50 mg BID PO Last administered on 10/09/18 10:13; Admin Dose 50 MG; Start 09/27/18 at 21:00 Felodipine (Plendil) 2.5 mg DAILY PO Last administered on 10/09/18 10:16; Admin Dose 2.5 MG; Start 09/29/18 at 09:00 Famotidine (Pepcid) 20 mg DAILY PO Last administered on 10/09/18 10:11; Admin Dose 20 MG; Start 09/30/18 at 09:00 Guaifenesin/ Codeine Phosphate (Robitussin Ac Liquid Cup) 5 ml Q4H PRN PO COUGH Last administered on 10/06/18 12:56; Admin Dose 5 ML; Start 10/01/18 at 10:30 Insulin Aspart (Novolog Insulin Pen) NOVOLOG *MODERATE* ALGORITHM WITH MEALS BEDTIME SC Last administered on 10/09/18 07:42; Admin Dose 2 UNIT; Start 10/01/18 at 11:30 Diagnostic Test (Pha) (Accu-Chek) 1 02 XX Last administered on 6/23/19at 02:00; Admin Dose 1 EA; Start 10/02/18 at 02:00 Eye Lubricant (Artificial Tears Oph) 2 drop PRN PRN BOTH EYES DRY EYES Last administered on 10/06/18 12:56; Admin Dose 2 DROP; Start 10/01/18 at 18:30 Docusate Sodium (Colace) 100 mg BID PO Last administered on 10/09/18 10:13; Admin Dose 100 MG; Start 10/02/18 at 13:00 Insulin Glargine (Lantus) 15 units DAILY@0800 SC Last administered on 10/09/18 07:41; Admin Dose 15 UNITS; Start 10/06/18 at 08:00 Bumetanide 2 mg/ Dextrose 25 ml @ 50 mls/hr BID DIURETICS IV Last administered on 10/09/18 05:37; Admin Dose 50 MLS/HR; Start 10/05/18 at 18:00 Magnesium Oxide (Mag-Ox 400) 400 mg DAILY PO Last administered on 10/09/18 10:13; Admin Dose 400 MG; Start 10/08/18 at 09:00 Meropenem/Sodium Chloride 50 ml @ 100 mls/hr Q12 IVPB Last administered on 10/09/18 10:11; Admin Dose 100 MLS/HR; Start 10/08/18 at 09:00 Doxycycline Hyclate (Vibramycin) 100 mg BID PO Last administered on 10/09/18 10:11; Admin Dose 100 MG; Start 10/08/18 at 09:00 Assessment/Plan Hospital Course (Demo Recall) Assessment 1. Status post acute hypoxemic respiratory failure 2. Congestive cardiac failure 3. Normal procalcitonin level noted. 4. Recent non-ST elevation ID Plan 1. Continue renal recommendations regarding diuretics 2. No pulmonary embolus not enough effusion for thoracentesis on the ultrasound of right chest. 3. ID recommendations Consider Ng evaluation PATEL GRIFFITH MD, [facility] Oct 09, 2018 11:44
[2018-10-09] MEDS: ENOXAPARIN 80 MG/0.8 ML SYG SC SCH (12:35)
[2018-10-10] MEDS: ACCUCHECK AT 2AM (Patients on SS coverage) XX SCH (02:34)
[2018-10-10 04:00] VITALS: BP 145/62; PULSE 68; RESP 18
[2018-10-10] MEDS: BUMETANIDE 2 MG in DEXTROSE 5% 17 ML IV SCH (06:11)
--- NOTE | 2018-10-10 06:46 | CONS ---
Assessment/Plan Assessment/Plan Hospital Course (Demo Recall) 1) CHF, r/o pneumonia on levo/aztreanom since 09/24 check procalcitonin and if <0.25 to d/c aztreanom pt did not have some coryza before her CP and SOB so a viral etiology is possible, will order viral pcr of nares no sputum production so no cx possible but nasal for MRSA was neg of noted WBC normalized prior to start of antibiotics pt is anxious to get off biPAP so that she can drink fluids 09/26 - procalcitonin was elevated, c/w with a bacterial lung process continue with levo/aztreanom at present pt starting to bring up phlegm will order resp culture to repeat procalcitonin 09/27 - vanco was added by pulmonary yesterday, not clear for the reason (decreasing procalcitonin and normal WBC, no fever and neg MRSA screen) currently on levo/aztreanom/vanco CXR this a.m. shows more pulmonary edema and BNP is higher I will order swallow eval for patient sputum cx is normal respiratory radha to date I will sign off on case, pulmonary is managing the antibiotics 10/02 - asked to see pt again slow improvement with CXR and clinically procalcitonin is neg now, to repeat in a.m. d/c vanco/aztreanom and continue with levaquin but change to daily dosing at 250mg check BNP in a.m. too start stool softener (no stools since admission but just started to eat yesterday) 10/03 - continue with levaquin alone but change to po form pt is eating and had a solid stool await a.m. labs 10/06 - stable on oral levaquin, continue thru 10/07 (two week course) procalcitonin remains negative viral PCR was neg 10/08 - CXR and CT confirms new infiltrates to RUL check procalcitonin and start merrem/doxy check ESR and MIGUEL 10/09 - continue with merrem/doxy repeat CXR to see if thorancentesis is still needed ESR is pending 10/10 - ESR is extremely high, MIGUEL is pending will add ANCA CXR is improved continue merrem/doxy thru 10/14 2) increase in LFT's this is much improved, likely it represented liver congestion due to heart failure 10/10 - abd u/s has been ordered 3) DM this rapidly improved since admission 4) distended bladder 10/10 - pt has kathleen in and still has distending bladder re-scan after kathleen was re-position externally and if still distended may need to adjust placement Consultation Date/Type/Reason Admit Date/Time Sep 23, 2018 at 07:08 Initial Consult Date 09/25/18 Type of Consult ID Date/Time of Note DATE: 10/10/18 TIME: 06:38 24 HR Interval Summary Free Text/Dictation pt states breathing is ok no N, V pt had a BM yesterday pt has kathleen in but feels like she needs to urinate Exam/Review of Systems Exam Vitals Vital Signs Date Temp Pulse Resp B/P (MAP) Pulse Ox O2 O2 Flow FiO2 Time Delivery Rate 10/10/18 98.1 68 18 145/62 95 04:00 (89) 10/10/18 4.0 36 02:17 10/09/18 Nasal 20:00 Cannula Intake and Output 10/09/18 10/09/18 10/10/18 1515:00 23:00 07:00 IntakeIntake Total 1150 ml OutputOutput Total 1900 ml 450 ml 250 ml BalanceBalance -1900 ml 700 ml -250 ml Constitutional: alert, oriented Eyes: nl sclera ENMT: mucosa pink and moist Respiratory: diminished breath sounds Cardiovascular: regular rate and rhythm Gastrointestinal: soft, other (distended bladder felt and tender over the bladder) Results Result Diagram: 10/10/18 0558 10/10/18 0558 Results 24hrs Laboratory Tests Test 10/09/18 07:29 10/09/18 12:18 10/09/18 17:28 10/09/18 22:13 Bedside Glucose 149 229 H 127 189 Test 10/10/18 02:33 10/10/18 05:58 Bedside Glucose 124 White Blood Count 5.5 Red Blood Count 3.29 L Hemoglobin 9.1 L Hematocrit 28.1 L Mean Corpuscular 85.4 Volume Mean Corpuscular 27.7 L Hemoglobin Mean Corpuscular 32.4 Hemoglobin Concent Red Cell 13.2 Distribution Width Platelet Count 452 H Mean Platelet Volume 11.4 H Immature 0.900 H Granulocytes % Neutrophils % 53.2 Lymphocytes % 28.9 Monocytes % 12.6 H Eosinophils % 3.5 Basophils % 0.9 Nucleated Red Blood 0.0 Cells % Immature 0.050 H Granulocytes # Neutrophils # 2.9 Lymphocytes # 1.6 Monocytes # 0.7 Eosinophils # 0.2 Basophils # 0.1 Nucleated Red Blood 0.0 Cells # Sodium Level 139 Potassium Level 4.1 Chloride Level 97 Carbon Dioxide Level 34 H Anion Gap 8 Blood Urea Nitrogen 30 H Creatinine 0.89 Est Glomerular Filtrat Rate mL/min Glucose Level 128 Calcium Level 9.4 Total Bilirubin 0.2 Direct Bilirubin 0.00 Indirect Bilirubin 0.2 Aspartate Amino 125 H Transf (AST/SGOT) Alanine 191 H Aminotransferase (AL T/SGPT) Alkaline Phosphatase 114 Total Protein 6.2 Albumin 3.2 L Globulin 3.00 Albumin/Globulin 1.06 Ratio Medications Medication Current Medications Aspirin (Halfprin) 81 mg DAILY PO Last administered on 10/09/18at 10:11; Admin Dose 81 MG; Start 09/24/18 at 09:00 IV Flush (NS 3 ml) 3 ml PER PROTOCOL IV ; Start 09/23/18 at 13:00 Lorazepam (Ativan) 0.5 mg Q8H PRN PO .ANXIETY Last administered on 10/08/18at 22:42; Admin Dose 0.5 MG; Start 09/23/18 at 13:00 Ondansetron HCl (Zofran Inj) 4 mg Q6H PRN IV NAUSEA/VOMITING; Start 09/23/18 at 13:00 Acetaminophen (Tylenol Tab) 650 mg Q6H PRN PO .PAIN 1-3 OR TEMP Last administered on 10/08/18at 22:42; Admin Dose 650 MG; Start 09/23/18 at 13:00 Zolpidem Tartrate (Ambien) 5 mg QHS PRN PO .INSOMNIA; Start 09/23/18 at 13:00 Docusate Sodium (Colace) 100 mg Q12H PRN PO .CONSTIPATION; Start 09/23/18 at 13:00 Magnesium Hydroxide (Milk Of Mag) 30 ml DAILY PRN PO .CONSTIPATION; Start 09/23/18 at 13:00 Miscellaneous Information 1 ea NOTE XX ; Start 09/23/18 at 13:30 Glucose (Glutose) 15 gm Q15M PRN PO DECREASED GLUCOSE; Start 09/23/18 at 13:30 Glucose (Glutose) 22.5 gm Q15M PRN PO DECREASED GLUCOSE; Start 09/23/18 at 13:30 Dextrose (D50w Syringe) 25 ml Q15M PRN IV DECREASED GLUCOSE; Start 09/23/18 at 13:30 Dextrose (D50w Syringe) 50 ml Q15M PRN IV DECREASED GLUCOSE; Start 09/23/18 at 13:30 Glucagon (Glucagen) 1 mg Q15M PRN IM DECREASED GLUCOSE; Start 09/23/18 at 13:30 Glucose (Glutose) 15 gm Q15M PRN BUCCAL DECREASED GLUCOSE; Start 09/23/18 at 13:30 Enoxaparin Sodium (Lovenox) 75 mg Q24H SC Last administered on 10/09/18 12:35; Admin Dose 75 MG; Start 09/26/18 at 13:00 Lidocaine (Lidoderm) 1 patch DAILY TD Last administered on 10/09/18 10:10; Admin Dose 1 PATCH; Start 09/26/18 at 12:00 Lorazepam (Ativan) 0.5 mg Q4H PRN IV ANXIETY Last administered on 09/29/18 23:01; Admin Dose 0.5 MG; Start 09/26/18 at 19:30 Metoprolol Tartrate (Lopressor) 50 mg BID PO Last administered on 10/09/18 22:00; Admin Dose 50 MG; Start 09/27/18 at 21:00 Felodipine (Plendil) 2.5 mg DAILY PO Last administered on 10/09/18 10:16; Admin Dose 2.5 MG; Start 09/29/18 at 09:00 Famotidine (Pepcid) 20 mg DAILY PO Last administered on 10/09/18 10:11; Admin Dose 20 MG; Start 09/30/18 at 09:00 Guaifenesin/ Codeine Phosphate (Robitussin Ac Liquid Cup) 5 ml Q4H PRN PO COUGH Last administered on 10/06/18 12:56; Admin Dose 5 ML; Start 10/01/18 at 10:30 Insulin Aspart (Novolog Insulin Pen) NOVOLOG *MODERATE* ALGORITHM WITH MEALS BEDTIME SC Last administered on 10/09/18 22:39; Admin Dose 1 UNIT; Start 10/01/18 at 11:30 Diagnostic Test (Pha) (Accu-Chek) 1 ea 02 XX Last administered on 10/10/18 02:34; Admin Dose 1 EA; Start 10/02/18 at 02:00 Eye Lubricant (Artificial Tears Oph) 2 drop PRN PRN BOTH EYES DRY EYES Last administered on 10/06/18 12:56; Admin Dose 2 DROP; Start 10/01/18 at 18:30 Docusate Sodium (Colace) 100 mg BID PO Last administered on 10/09/18 21:59; Admin Dose 100 MG; Start 10/02/18 at 13:00 Insulin Glargine (Lantus) 15 units DAILY@0800 SC Last administered on 10/09/18 07:41; Admin Dose 15 UNITS; Start 10/06/18 at 08:00 Bumetanide 2 mg/ Dextrose 25 ml @ 50 mls/hr BID DIURETICS IV Last administered on 10/10/18 06:11; Admin Dose 50 MLS/HR; Start 10/05/18 at 18:00 Magnesium Oxide (Mag-Ox 400) 400 mg DAILY PO Last administered on 10/09/18 10:13; Admin Dose 400 MG; Start 10/08/18 at 09:00 Meropenem/Sodium Chloride 50 ml @ 100 mls/hr Q12 IVPB Last administered on 10/09/18 21:59; Admin Dose 100 MLS/HR; Start 10/08/18 at 09:00 Doxycycline Hyclate (Vibramycin) 100 mg BID PO Last administered on 10/09/18 2 1:59; Admin Dose 100 MG; Start 10/08/18 at 09:00 HARPREET HALE MD Oct 10, 2018 06:46
[2018-10-10 07:17] VITALS: BP 153/66; PULSE 76; RESP 18
--- NOTE | 2018-10-10 08:42 | CONS ---
Assessment/Plan Assessment/Plan Hospital Course (Demo Recall) ASSESSMENT: 1. Multi lobar broncho pneumonia possible ARDS w component of possible acute d iastolic HF 2. Non-ST elevation myocardial infarction. 3. Hypertension. 4. Type 2 diabetes. 5. Mild to moderate aortic stenosis. 6. Acute diastolic heart failure. 7. Gout. 8. Normocytic anemia. 9. Hyperlipidemia. 10 History of breast cancer. 11. Renal insufficiency. 12. PAF- < 24hr, converted to nsr. PLAN: 1. Continue diuresis on bumex. goal 1-2L. watch bun/cr closely. bun inc slightly . 2. continue asa,felodipine. ok to hold atorvastatin given elevated lft, trend 3. watch electrolytes 4. tele without recurrent afib, monitor 5. plan for [facility] saturday at 730 am, pt/niece aware Consultation Date/Type/Reason Admit Date/Time Sep 23, 2018 at 07:08 Initial Consult Date 09/25/18 Type of Consult cardiology Reason for Consultation nstemi Requesting Provider: GENARO SEPULVEDA MD Date/Time of Note DATE: 10/10/18 TIME: 08:35 24 HR Interval Summary Free Text/Dictation no acute events. doing well. sob stable on o2 via NC. states tried to get up out of bed w assist yest but felt lightheaded. no cp. tele reviewed. nsr no afib Detailed Summary Eyes: no complaints ENT: no complaints Respiratory: shortness of breath Cardiovascular: no complaints Gastrointestinal: no complaints Exam/Review of Systems Exam Vitals Vital Signs Date Temp Pulse Resp B/P (MAP) Pulse Ox O2 O2 Flow FiO2 Time Delivery Rate 10/10/18 97.9 76 18 153/66 96 07:17 (95) 10/10/18 4.0 36 02:17 10/09/18 Nasal 20:00 Cannula Intake and Output 10/09/18 10/09/18 10/10/18 1515:00 23:00 07:00 IntakeIntake Total 1150 ml 25 ml OutputOutput Total 1900 ml 450 ml 250 ml BalanceBalance -1900 ml 700 ml -225 ml Exam HEENT; no JVD, no HJR, carotids 2 over 4+ without bruits. Chest: coarse Cardiac: S4, S1, S2 with normal physiologic splitting, 2/6 early to mid peaking systolic ejection murmur, no rub click or diastolic murmur noted. Abdominal: Bowel sounds positive, soft nontender, no abdominal bruit noted, no hepatosplenomegaly. Extremities: No cyanosis, clubbing, or edema. Negative Homans sign or palpable cords. Pulses: 2/4 pulses diffusely no bruits noted. Results Result Diagram: 10/10/18 0558 10/10/18 0558 Results 24hrs Laboratory Tests Test 10/09/18 12:18 10/09/18 17:28 10/09/18 22:13 10/10/18 02:33 Bedside Glucose 229 H 127 189 124 Test 10/10/18 05:58 10/10/18 08:07 White Blood Count 5.5 Red Blood Count 3.29 L Hemoglobin 9.1 L Hematocrit 28.1 L Mean Corpuscular 85.4 Volume Mean Corpuscular 27.7 L Hemoglobin Mean Corpuscular 32.4 Hemoglobin Concent Red Cell 13.2 Distribution Width Platelet Count 452 H Mean Platelet Volume 11.4 H Immature 0.900 H Granulocytes % Neutrophils % 53.2 Lymphocytes % 28.9 Monocytes % 12.6 H Eosinophils % 3.5 Basophils % 0.9 Nucleated Red Blood 0.0 Cells % Immature 0.050 H Granulocytes # Neutrophils # 2.9 Lymphocytes # 1.6 Monocytes # 0.7 Eosinophils # 0.2 Basophils # 0.1 Nucleated Red Blood 0.0 Cells # Sodium Level 139 Potassium Level 4.1 Chloride Level 97 Carbon Dioxide Level 34 H Anion Gap 8 Blood Urea Nitrogen 30 H Creatinine 0.89 Est Glomerular Filtrat Rate mL/min Glucose Level 128 Calcium Level 9.4 Total Bilirubin 0.2 Direct Bilirubin 0.00 Indirect Bilirubin 0.2 Aspartate Amino 125 H Transf (AST/SGOT) Alanine 191 H Aminotransferase (AL T/SGPT) Alkaline Phosphatase 114 Total Protein 6.2 Albumin 3.2 L Globulin 3.00 Albumin/Globulin 1.06 Ratio Bedside Glucose 153 Imaging Imaging chest us report reviewed Medications Medication Current Medications Aspirin (Halfprin) 81 mg DAILY PO Last administered on 10/09/18at 10:11; Admin Dose 81 MG; Start 09/24/18 at 09:00 IV Flush (NS 3 ml) 3 ml PER PROTOCOL IV ; Start 09/23/18 at 13:00 Lorazepam (Ativan) 0.5 mg Q8H PRN PO .ANXIETY Last administered on 10/08/18at 22:42; Admin Dose 0.5 MG; Start 09/23/18 at 13:00 Ondansetron HCl (Zofran Inj) 4 mg Q6H PRN IV NAUSEA/VOMITING; Start 09/23/18 at 13:00 Acetaminophen (Tylenol Tab) 650 mg Q6H PRN PO .PAIN 1-3 OR TEMP Last administered on 10/08/18at 22:42; Admin Dose 650 MG; Start 09/23/18 at 13:00 Zolpidem Tartrate (Ambien) 5 mg QHS PRN PO .INSOMNIA; Start 09/23/18 at 13:00 Docusate Sodium (Colace) 100 mg Q12H PRN PO .CONSTIPATION; Start 09/23/18 at 1 3:00 Magnesium Hydroxide (Milk Of Mag) 30 ml DAILY PRN PO .CONSTIPATION; Start 09/23/18 at 13:00 Miscellaneous Information 1 ea NOTE XX ; Start 09/23/18 at 13:30 Glucose (Glutose) 15 gm Q15M PRN PO DECREASED GLUCOSE; Start 09/23/18 at 13:30 Glucose (Glutose) 22.5 gm Q15M PRN PO DECREASED GLUCOSE; Start 09/23/18 at 13:30 Dextrose (D50w Syringe) 25 ml Q15M PRN IV DECREASED GLUCOSE; Start 09/23/18 at 13:30 Dextrose (D50w Syringe) 50 ml Q15M PRN IV DECREASED GLUCOSE; Start 09/23/18 at 13:30 Glucagon (Glucagen) 1 mg Q15M PRN IM DECREASED GLUCOSE; Start 09/23/18 at 13:30 Glucose (Glutose) 15 gm Q15M PRN BUCCAL DECREASED GLUCOSE; Start 09/23/18 at 13:30 Enoxaparin Sodium (Lovenox) 75 mg Q24H SC Last administered on 10/09/18at 12:35; Admin Dose 75 MG; Start 09/26/18 at 13:00 Lidocaine (Lidoderm) 1 patch DAILY TD Last administered on 10/09/18at 10:10; Admin Dose 1 PATCH; Start 09/26/18 at 12:00 Lorazepam (Ativan) 0.5 mg Q4H PRN IV ANXIETY Last administered on 09/29/18at 23:01; Admin Dose 0.5 MG; Start 09/26/18 at 19:30 Metoprolol Tartrate (Lopressor) 50 mg BID PO Last administered on 10/09/18 22:00; Admin Dose 50 MG; Start 09/27/18 at 21:00 Felodipine (Plendil) 2.5 mg DAILY PO Last administered on 10/09/18 10:16; Admin Dose 2.5 MG; Start 09/29/18 at 09:00 Famotidine (Pepcid) 20 mg DAILY PO Last administered on 10/09/18 10:11; Admin Dose 20 MG; Start 09/30/18 at 09:00 Guaifenesin/ Codeine Phosphate (Robitussin Ac Liquid Cup) 5 ml Q4H PRN PO COUGH Last administered on 10/06/18 12:56; Admin Dose 5 ML; Start 10/01/18 at 10:30 Insulin Aspart (Novolog Insulin Pen) NOVOLOG *MODERATE* ALGORITHM WITH MEALS BEDTIME SC Last administered on 10/09/18 22:39; Admin Dose 1 UNIT; Start 10/01/18 at 11:30 Diagnostic Test (Pha) (Accu-Chek) 1 ea 02 XX Last administered on 10/10/18 02:34; Admin Dose 1 EA; Start 10/02/18 at 02:00 Eye Lubricant (Artificial Tears Oph) 2 drop PRN PRN BOTH EYES DRY EYES Last administered on 10/06/18 12:56; Admin Dose 2 DROP; Start 10/01/18 at 18:30 Docusate Sodium (Colace) 100 mg BID PO Last administered on 10/09/18 21:59; Admin Dose 100 MG; Start 10/02/18 at 13:00 Insulin Glargine (Lantus) 15 units DAILY@0800 SC Last administered on 10/09/18 07:41; Admin Dose 15 UNITS; Start 10/06/18 at 08:00 Bumetanide 2 mg/ Dextrose 25 ml @ 50 mls/hr BID DIURETICS IV Last administered on 10/10/18 06:11; Admin Dose 50 MLS/HR; Start 10/05/18 at 18:00 Magnesium Oxide (Mag-Ox 400) 400 mg DAILY PO Last administered on 10/09/18 10:13; Admin Dose 400 MG; Start 10/08/18 at 09:00 Meropenem/Sodium Chloride 50 ml @ 100 mls/hr Q12 IVPB Last administered on 10/09/18at 21:59; Admin Dose 100 MLS/HR; Start 10/08/18 at 09:00 Doxycycline Hyclate (Vibramycin) 100 mg BID PO Last administered on 10/09/18at 21:59; Admin Dose 100 MG; Start 10/08/18 at 09:00 YAIMA BARROW Oct 10, 2018 08:42
[2018-10-10] MEDS: INSULIN GLARGINE [LANTus] (100 UNITS/ML) SYG SC SCH (08:51)
[2018-10-10] MEDS: INSULIN ASPART [NOVOLOG] 3 ML PEN SC SCH ×4 (08:53→22:03)
[2018-10-10] MEDS: DOCUSATE SODIUM 100 MG CAP PO SCH ×2 (08:55→21:18)
[2018-10-10] MEDS: FELODIPINE (ER) 2.5 MG TAB PO SCH (08:55)
[2018-10-10] MEDS: DOXYCYCLINE 100 MG TAB PO SCH ×2 (08:55→21:18)
[2018-10-10] MEDS: MEROPENEM 1 GM/50ML(PMX) 50 ML IVPB SCH ×2 (08:55→21:17)
[2018-10-10] MEDS: FAMOTIDINE 20 MG TAB PO SCH (08:56)
[2018-10-10] MEDS: METOPROLOL 50 MG TAB PO SCH ×2 (08:56→21:19)
[2018-10-10] MEDS: MAGNESIUM OXIDE 400 MG TAB PO SCH (08:56)
[2018-10-10] MEDS: LIDOCAINE 5% PATCH TD SCH (09:01)
--- NOTE | 2018-10-10 09:43 | PN ---
Date/Time of Note Date/Time of Note DATE: 10/10/18 TIME: 09:36 Assessment/Plan VTE Prophylaxis Risk score (from Ns)>0 risk: 4 SCD applied (from Ns): Yes Pharmacological prophylaxis: LMWH Lines/Catheters IV Catheter Type [facility]from [facility] Saline Lock Urinary Cath still in place: Yes Reason Cath still needed: urinary retention Assessment/Plan Hospital Course 1. Congestive heart failure /pneumonia. She is improved clinically. Chest x-ray shows interstitial infiltrates and small bilateral pleural effusions. She did try to get up and walk yesterday but became dizzy.. I asked the nurse to have her sit in a chair as tolerated. 2. Renal failure. Her serum creatinine is normal and stable. 3. Respiratory failure . She is now off high flow oxygen . 4. She is being seen by cardiology for elevated troponin levels which have now come down . She is going to have a left heart catheterization on Saturday, October 13. 5. History of hypertension 6. Type 2 diabetes mellitus, blood sugars have been lower. She is now on on a dose of Lantus in addition to the sliding scale Humalog coverage. 7. Iron deficiency anemia. Patient has finished a course of Ferrlicit, IV iron replacement. 8. Atrial fibrillation, she has now converted to sinus rhythm.. 9. She has elevated liver enzymes. I will stop atorvastatin and will order an abdominal ultrasound to check liver. Her liver enzymes are lower today. Result Diagram: 10/10/18 0558 10/10/18 0558 Results 24hrs Laboratory Tests Test 10/09/18 12:18 10/09/18 17:28 10/09/18 22:13 10/10/18 02:33 Bedside Glucose 229 H 127 189 124 Test 10/10/18 05:58 10/10/18 08:07 White Blood Count 5.5 Red Blood Count 3.29 L Hemoglobin 9.1 L Hematocrit 28.1 L Mean Corpuscular 85.4 Volume Mean Corpuscular 27.7 L Hemoglobin Mean Corpuscular 32.4 Hemoglobin Concent Red Cell 13.2 Distribution Width Platelet Count 452 H Mean Platelet Volume 11.4 H Immature 0.900 H Granulocytes % Neutrophils % 53.2 Lymphocytes % 28.9 Monocytes % 12.6 H Eosinophils % 3.5 Basophils % 0.9 Nucleated Red Blood 0.0 Cells % Immature 0.050 H Granulocytes # Neutrophils # 2.9 Lymphocytes # 1.6 Monocytes # 0.7 Eosinophils # 0.2 Basophils # 0.1 Nucleated Red Blood 0.0 Cells # Sodium Level 139 Potassium Level 4.1 Chloride Level 97 Carbon Dioxide Level 34 H Anion Gap 8 Blood Urea Nitrogen 30 H Creatinine 0.89 Est Glomerular Filtrat Rate mL/min Glucose Level 128 Calcium Level 9.4 Total Bilirubin 0.2 Direct Bilirubin 0.00 Indirect Bilirubin 0.2 Aspartate Amino 125 H Transf (AST/SGOT) Alanine 191 H Aminotransferase (AL T/SGPT) Alkaline Phosphatase 114 Total Protein 6.2 Albumin 3.2 L Globulin 3.00 Albumin/Globulin 1.06 Ratio Bedside Glucose 153 Subjective 24 Hr Interval Summary Free Text/Dictation Mandi is feeling better. She has less of a cough and less shortness of breath. She tried to get up yesterday but became dizzy. Constitutional: improved Respiratory: cough, shortness of breath Cardiovascular: no complaints Gastrointestinal: no complaints Genitourinary: no complaints Exam/Review of Systems Exam Vitals Vital Signs Date Temp Pulse Resp B/P (MAP) Pulse Ox O2 O2 Flow FiO2 Time Delivery Rate 10/10/18 97.9 76 18 153/66 96 07:17 (95) 10/10/18 4.0 36 02:17 10/09/18 Nasal 20:00 Cannula Intake and Output 10/09/18 10/09/18 10/10/18 1414:59 22:59 06:59 IntakeIntake Total 1150 ml 25 ml OutputOutput Total 1900 ml 450 ml 250 ml BalanceBalance -1900 ml 700 ml -225 ml Constitutional: alert, oriented, frail ENMT: nl external ears & nose Neck: supple Respiratory: crackles/rales, diminished breath sounds Cardiovascular: regular rate and rhythm Gastrointestinal: soft, non-tender Musculoskeletal: nl extremities to inspection Results Results 24hrs Laboratory Tests Test 10/09/18 12:18 10/09/18 17:28 10/09/18 22:13 10/10/18 02:33 Bedside Glucose 229 H 127 189 124 Test 10/10/18 05:58 10/10/18 08:07 White Blood Count 5.5 Red Blood Count 3.29 L Hemoglobin 9.1 L Hematocrit 28.1 L Mean Corpuscular 85.4 Volume Mean Corpuscular 27.7 L Hemoglobin Mean Corpuscular 32.4 Hemoglobin Concent Red Cell 13.2 Distribution Width Platelet Count 452 H Mean Platelet Volume 11.4 H Immature 0.900 H Granulocytes % Neutrophils % 53.2 Lymphocytes % 28.9 Monocytes % 12.6 H Eosinophils % 3.5 Basophils % 0.9 Nucleated Red Blood 0.0 Cells % Immature 0.050 H Granulocytes # Neutrophils # 2.9 Lymphocytes # 1.6 Monocytes # 0.7 Eosinophils # 0.2 Basophils # 0.1 Nucleated Red Blood 0.0 Cells # Sodium Level 139 Potassium Level 4.1 Chloride Level 97 Carbon Dioxide Level 34 H Anion Gap 8 Blood Urea Nitrogen 30 H Creatinine 0.89 Est Glomerular Filtrat Rate mL/min Glucose Level 128 Calcium Level 9.4 Total Bilirubin 0.2 Direct Bilirubin 0.00 Indirect Bilirubin 0.2 Aspartate Amino 125 H Transf (AST/SGOT) Alanine 191 H Aminotransferase (AL T/SGPT) Alkaline Phosphatase 114 Total Protein 6.2 Albumin 3.2 L Globulin 3.00 Albumin/Globulin 1.06 Ratio Bedside Glucose 153 Medications Medication Current Medications Aspirin (Halfprin) 81 mg DAILY PO Last administered on 10/09/18at 10:11; Admin Dose 81 MG; Start 09/24/18 at 09:00 IV Flush (NS 3 ml) 3 ml PER PROTOCOL IV ; Start 09/23/18 at 13:00 Lorazepam (Ativan) 0.5 mg Q8H PRN PO .ANXIETY Last administered on 10/08/18at 22:42; Admin Dose 0.5 MG; Start 09/23/18 at 13:00 Ondansetron HCl (Zofran Inj) 4 mg Q6H PRN IV NAUSEA/VOMITING; Start 09/23/18 at 13:00 Acetaminophen (Tylenol Tab) 650 mg Q6H PRN PO .PAIN 1-3 OR TEMP Last administered on 10/08/18at 22:42; Admin Dose 650 MG; Start 09/23/18 at 13:00 Zolpidem Tartrate (Ambien) 5 mg QHS PRN PO .INSOMNIA; Start 09/23/18 at 13:00 Docusate Sodium (Colace) 100 mg Q12H PRN PO .CONSTIPATION; Start 09/23/18 at 13:00 Magnesium Hydroxide (Milk Of Mag) 30 ml DAILY PRN PO .CONSTIPATION; Start 09/23/18 at 13:00 Miscellaneous Information 1 ea NOTE XX ; Start 09/23/18 at 13:30 Glucose (Glutose) 15 gm Q15M PRN PO DECREASED GLUCOSE; Start 09/23/18 at 13:30 Glucose (Glutose) 22.5 gm Q15M PRN PO DECREASED GLUCOSE; Start 09/23/18 at 13:30 Dextrose (D50w Syringe) 25 ml Q15M PRN IV DECREASED GLUCOSE; Start 09/23/18 at 13:30 Dextrose (D50w Syringe) 50 ml Q15M PRN IV DECREASED GLUCOSE; Start 09/23/18 at 13:30 Glucagon (Glucagen) 1 mg Q15M PRN IM DECREASED GLUCOSE; Start 09/23/18 at 13:30 Glucose (Glutose) 15 gm Q15M PRN BUCCAL DECREASED GLUCOSE; Start 09/23/18 at 13:30 Enoxaparin Sodium (Lovenox) 75 mg Q24H SC Last administered on 10/09/18at 12:35; Admin Dose 75 MG; Start 09/26/18 at 13:00 Lidocaine (Lidoderm) 1 patch DAILY TD Last administered on 10/10/18at 09:01; Admin Dose 1 PATCH; Start 09/26/18 at 12:00 Lorazepam (Ativan) 0.5 mg Q4H PRN IV ANXIETY Last administered on 09/29/18at 23:01; Admin Dose 0.5 MG; Start 09/26/18 at 19:30 Metoprolol Tartrate (Lopressor) 50 mg BID PO Last administered on 10/10/18at 08:56; Admin Dose 50 MG; Start 09/27/18 at 21:00 Felodipine (Plendil) 2.5 mg DAILY PO Last administered on 10/10/18at 08:55; Admin Dose 2.5 MG; Start 09/29/18 at 09:00 Famotidine (Pepcid) 20 mg DAILY PO Last administered on 10/10/18 08:56; Admin Dose 20 MG; Start 09/30/18 at 09:00 Guaifenesin/ Codeine Phosphate (Robitussin Ac Liquid Cup) 5 ml Q4H PRN PO COUGH Last administered on 10/06/18at 12:56; Admin Dose 5 ML; Start 10/01/18 at 10:30 Insulin Aspart (Novolog Insulin Pen) NOVOLOG *MODERATE* ALGORITHM WITH MEALS BEDTIME SC Last administered on 10/10/18 08:53; Admin Dose 2 UNIT; Start 10/01/18 at 11:30 Diagnostic Test (Pha) (Accu-Chek) 1 ea 02 XX Last administered on 10/10/18 02:34; Admin Dose 1 EA; Start 10/02/18 at 02:00 Eye Lubricant (Artificial Tears Oph) 2 drop PRN PRN BOTH EYES DRY EYES Last administered on 10/06/18 12:56; Admin Dose 2 DROP; Start 10/01/18 at 18:30 Docusate Sodium (Colace) 100 mg BID PO Last administered on 10/10/18 08:55; Admin Dose 100 MG; Start 10/02/18 at 13:00 Insulin Glargine (Lantus) 15 units DAILY@0800 SC Last administered on 10/10/18 08:51; Admin Dose 15 UNITS; Start 10/06/18 at 08:00 Magnesium Oxide (Mag-Ox 400) 400 mg DAILY PO Last administered on 10/10/18 08:56; Admin Dose 400 MG; Start 10/08/18 at 09:00 Meropenem/Sodium Chloride 50 ml @ 100 mls/hr Q12 IVPB Last administered on 10/10/18 08:55; Admin Dose 100 MLS/HR; Start 10/08/18 at 09:00 Doxycycline Hyclate (Vibramycin) 100 mg BID PO Last administered on 10/10/18 08:55; Admin Dose 100 MG; Start 10/08/18 at 09:00 Bumetanide 2 mg/ Dextrose 25 ml @ 50 mls/hr DAILY IV ; Start 10/11/18 at 09:00; Status GENARO FERNANDEZ MD Oct 10, 2018 09:43
[2018-10-10] MEDS: ASPIRIN (EC) 81 MG TAB PO SCH (09:44)
[2018-10-10] MEDS: ARTIFICIAL TEARS 15 ML OPH BOTH EYES PRN (10:50)
[2018-10-10 11:41] VITALS: BP 104/59; PULSE 79; RESP 19
[2018-10-10] MEDS: ENOXAPARIN 80 MG/0.8 ML SYG SC SCH (14:11)
--- NOTE | 2018-10-10 14:39 | CONS ---
Consult Date/Type/Reason Admit Date/Time Sep 23, 2018 at 07:08 Initial Consult Date 09/25/18 Type of Consult Pulmonary Requesting Provider: GENARO SEPULVEDA MD Date/Time of Note DATE: 10/10/18 TIME: 14:37 Subjective Continues to improve, now on 5L o2 Objective Vital Signs Date Temp Pulse Resp B/P (MAP) Pulse Ox O2 O2 Flow FiO2 Time Delivery Rate 10/10/18 98.0 79 19 104/59 99 11:41 (74) 10/10/18 4.0 10:32 10/10/18 Nasal 08:00 Cannula 10/10/18 36 02:17 Intake and Output 10/09/18 10/09/18 10/10/18 1515:00 23:00 07:00 IntakeIntake Total 1150 ml 25 ml OutputOutput Total 1900 ml 450 ml 250 ml BalanceBalance -1900 ml 700 ml -225 ml Exam GENERAL: Elderly lady comfortable at rest no acute distress VITAL SIGNS: per chart NECK: Supple. No JVD or lymphadenopathy. CARDIAC EXAM: S1, S2. No added sounds or murmurs. CHEST: Diminished air entry bilaterally with few rales ABDOMEN: Soft, nontender. No guarding or rebound. EXTREMITIES: No cyanosis, clubbing or edema. NEUROLOGIC: Generalized weakness. No focal deficits. Vent Setting Fraction of Inspired Oxygen pe: 36 Results/Medications Result Diagram: 10/10/18 0558 10/10/18 0558 Results 24 hrs Laboratory Tests Test 10/09/18 17:28 10/09/18 22:13 10/10/18 02:33 10/10/18 05:58 Bedside Glucose 127 189 124 White Blood Count 5.5 Red Blood Count 3.29 L Hemoglobin 9.1 L Hematocrit 28.1 L Mean Corpuscular 85.4 Volume Mean Corpuscular 27.7 L Hemoglobin Mean Corpuscular 32.4 Hemoglobin Concent Red Cell 13.2 Distribution Width Platelet Count 452 H Mean Platelet Volume 11.4 H Immature 0.900 H Granulocytes % Neutrophils % 53.2 Lymphocytes % 28.9 Monocytes % 12.6 H Eosinophils % 3.5 Basophils % 0.9 Nucleated Red Blood 0.0 Cells % Immature 0.050 H Granulocytes # Neutrophils # 2.9 Lymphocytes # 1.6 Monocytes # 0.7 Eosinophils # 0.2 Basophils # 0.1 Nucleated Red Blood 0.0 Cells # Sodium Level 139 Potassium Level 4.1 Chloride Level 97 Carbon Dioxide Level 34 H Anion Gap 8 Blood Urea Nitrogen 30 H Creatinine 0.89 Est Glomerular Filtrat Rate mL/min Glucose Level 128 Calcium Level 9.4 Total Bilirubin 0.2 Direct Bilirubin 0.00 Indirect Bilirubin 0.2 Aspartate Amino 125 H Transf (AST/SGOT) Alanine 191 H Aminotransferase (AL T/SGPT) Alkaline Phosphatase 114 Total Protein 6.2 Albumin 3.2 L Globulin 3.00 Albumin/Globulin 1.06 Ratio Test 10/10/18 08:07 10/10/18 11:51 Bedside Glucose 153 194 Medications Current Medications Aspirin (Halfprin) 81 mg DAILY PO Last administered on 10/10/18at 09:44; Admin Dose 81 MG; Start 09/24/18 at 09:00 IV Flush (NS 3 ml) 3 ml PER PROTOCOL IV ; Start 09/23/18 at 13:00 Lorazepam (Ativan) 0.5 mg Q8H PRN PO .ANXIETY Last administered on 10/08/18at 22:42; Admin Dose 0.5 MG; Start 09/23/18 at 13:00 Ondansetron HCl (Zofran Inj) 4 mg Q6H PRN IV NAUSEA/VOMITING; Start 09/23/18 at 13:00 Acetaminophen (Tylenol Tab) 650 mg Q6H PRN PO .PAIN 1-3 OR TEMP Last administered on 10/08/18at 22:42; Admin Dose 650 MG; Start 09/23/18 at 13:00 Zolpidem Tartrate (Ambien) 5 mg QHS PRN PO .INSOMNIA; Start 09/23/18 at 13:00 Docusate Sodium (Colace) 100 mg Q12H PRN PO .CONSTIPATION; Start 09/23/18 at 13:00 Magnesium Hydroxide (Milk Of Mag) 30 ml DAILY PRN PO .CONSTIPATION; Start 09/23/18 at 13:00 Miscellaneous Information 1 ea NOTE XX ; Start 09/23/18 at 13:30 Glucose (Glutose) 15 gm Q15M PRN PO DECREASED GLUCOSE; Start 09/23/18 at 13:30 Glucose (Glutose) 22.5 gm Q15M PRN PO DECREASED GLUCOSE; Start 09/23/18 at 13:30 Dextrose (D50w Syringe) 25 ml Q15M PRN IV DECREASED GLUCOSE; Start 09/23/18 at 13:30 Dextrose (D50w Syringe) 50 ml Q15M PRN IV DECREASED GLUCOSE; Start 09/23/18 at 13:30 Glucagon (Glucagen) 1 mg Q15M PRN IM DECREASED GLUCOSE; Start 09/23/18 at 13:30 Glucose (Glutose) 15 gm Q15M PRN BUCCAL DECREASED GLUCOSE; Start 09/23/18 at 13:30 Enoxaparin Sodium (Lovenox) 75 mg Q24H SC Last administered on 10/10/18 14:11; Admin Dose 75 MG; Start 09/26/18 at 13:00 Lidocaine (Lidoderm) 1 patch DAILY TD Last administered on 10/10/18 09:01; Admin Dose 1 PATCH; Start 09/26/18 at 12:00 Lorazepam (Ativan) 0.5 mg Q4H PRN IV ANXIETY Last administered on 09/29/18 23:01; Admin Dose 0.5 MG; Start 09/26/18 at 19:30 Metoprolol Tartrate (Lopressor) 50 mg BID PO Last administered on 10/10/18 08:56; Admin Dose 50 MG; Start 09/27/18 at 21:00 Felodipine (Plendil) 2.5 mg DAILY PO Last administered on 10/10/18 08:55; Admin Dose 2.5 MG; Start 09/29/18 at 09:00 Famotidine (Pepcid) 20 mg DAILY PO Last administered on 10/10/18 08:56; Admin Dose 20 MG; Start 09/30/18 at 09:00 Guaifenesin/ Codeine Phosphate (Robitussin Ac Liquid Cup) 5 ml Q4H PRN PO COUGH Last administered on 10/06/18 12:56; Admin Dose 5 ML; Start 10/01/18 at 10:30 Insulin Aspart (Novolog Insulin Pen) NOVOLOG *MODERATE* ALGORITHM WITH MEALS BEDTIME SC Last administered on 10/10/18 12:42; Admin Dose 4 UNIT; Start 10/01/18 at 11:30 Diagnostic Test (Pha) (Accu-Chek) 1 ea 02 XX Last administered on 10/10/18 02:34; Admin Dose 1 EA; Start 10/02/18 at 02:00 Eye Lubricant (Artificial Tears Oph) 2 drop PRN PRN BOTH EYES DRY EYES Last administered on 10/10/18 10:50; Admin Dose 2 DROP; Start 10/01/18 at 18:30 Docusate Sodium (Colace) 100 mg BID PO Last administered on 10/10/18 08:55; Admin Dose 100 MG; Start 10/02/18 at 13:00 Insulin Glargine (Lantus) 15 units DAILY@0800 SC Last administered on 10/10/18 08:51; Admin Dose 15 UNITS; Start 10/06/18 at 08:00 Magnesium Oxide (Mag-Ox 400) 400 mg DAILY PO Last administered on 10/10/18 08:56; Admin Dose 400 MG; Start 10/08/18 at 09:00 Meropenem/Sodium Chloride 50 ml @ 100 mls/hr Q12 IVPB Last administered on 10/10/18 08:55; Admin Dose 100 MLS/HR; Start 10/08/18 at 09:00 Doxycycline Hyclate (Vibramycin) 100 mg BID PO Last administered on 10/10/18 08:55; Admin Dose 100 MG; Start 10/08/18 at 09:00 Bumetanide 2 mg/ Dextrose 25 ml @ 50 mls/hr DAILY IV ; Start 10/11/18 at 09:00 Assessment/Plan Hospital Course (Demo Recall) Assessment 1. Status post acute hypoxemic respiratory failure 2. Congestive cardiac failure 3. Normal procalcitonin level noted. 4. Recent non-ST elevation [place] Plan 1. Continue renal recommendations regarding diuretics 2. No pulmonary embolus not enough effusion for thoracentesis on the ultrasound of right chest. 3. ID recommendations 4. Possible coronary angiography next week. PATEL GRIFFITH MD, [facility] Oct 10, 2018 14:39
[2018-10-10 15:31] VITALS: BP 125/59; PULSE 79; RESP 19
[2018-10-10 19:27] VITALS: BP 120/58; PULSE 75; RESP 18
[2018-10-11] VITALS: BP 131/63; PULSE 61; RESP 19
[2018-10-11] MEDS: ACCUCHECK AT 2AM (Patients on SS coverage) XX SCH (02:00)
[2018-10-11 03:58] VITALS: BP 122/61; PULSE 65; RESP 18
[2018-10-11] MEDS: INSULIN ASPART [NOVOLOG] 3 ML PEN SC SCH ×4 (07:59→22:21)
[2018-10-11 08:14] VITALS: BP 169/72; PULSE 76; RESP 20
[2018-10-11] MEDS: INSULIN GLARGINE [LANTus] (100 UNITS/ML) SYG SC SCH (08:25)
[2018-10-11] MEDS: MEROPENEM 1 GM/50ML(PMX) 50 ML IVPB SCH ×2 (08:25→20:21)
[2018-10-11] MEDS: DOXYCYCLINE 100 MG TAB PO SCH ×2 (08:25→20:21)
[2018-10-11] MEDS: ASPIRIN (EC) 81 MG TAB PO SCH (08:26)
[2018-10-11] MEDS: FAMOTIDINE 20 MG TAB PO SCH (08:26)
[2018-10-11] MEDS: DOCUSATE SODIUM 100 MG CAP PO SCH ×2 (08:26→20:21)
[2018-10-11] MEDS: MAGNESIUM OXIDE 400 MG TAB PO SCH (08:26)
[2018-10-11] MEDS: METOPROLOL 50 MG TAB PO SCH ×2 (08:26→20:34)
[2018-10-11] MEDS: FELODIPINE (ER) 2.5 MG TAB PO SCH (08:27)
[2018-10-11] MEDS: LIDOCAINE 5% PATCH TD SCH (08:27)
--- NOTE | 2018-10-11 08:45 | CONS ---
Assessment/Plan Assessment/Plan Assessment/Plan (Daily) 1. Multi lobar broncho pneumonia possible ARDS w component of possible acute diastolic HF: improving and monitored by pulm 2. Non-ST elevation myocardial infarction. no ongoing cp. for cardiac angio saturday 3. Hypertension.fair control. monitor and adjust meds 4. Type 2 diabetes.cont iss/ meds 5. Mild to moderate aortic stenosis.await cardiac angio 6. Acute diastolic heart failure.cont diuretics 7. Gout.no acute attack 8. Normocytic anemia.monitor and check iron sats 9. Hyperlipidemia.on statin 10 History of breast cancer. 11. Renal insufficiency.cr remains stable. monitor while diuresing 12. PAF- < 24hr, converted to nsr. 13. elevated LFts : ? passive congestion. med related. monitor and consider ultrasound if not better with diuretics. add hep panel Consultation Date/Type/Reason Admit Date/Time Sep 23, 2018 at 07:08 Initial Consult Date 09/25/18 Requesting Provider: GENARO SEPULVEDA MD Date/Time of Note DATE: 10/11/18 TIME: 08:42 24 HR Interval Summary Free Text/Dictation cont to improve. sob better. o2 sats better. no complaints Exam/Review of Systems Exam Vitals Vital Signs Date Temp Pulse Resp B/P (MAP) Pulse Ox O2 O2 Flow FiO2 Time Delivery Rate 10/11/18 97.9 76 20 169/72 96 Room Air 08:14 (104) 10/10/18 4.0 21:17 10/10/18 36 02:17 Intake and Output 10/10/18 10/10/18 10/11/18 1515:00 23:00 07:00 IntakeIntake Total 480 ml 290 ml 120 ml OutputOutput Total 1850 ml 500 ml 450 ml BalanceBalance -1370 ml -210 ml -330 ml Constitutional: alert, oriented Psych: no complaints Head: normocephalic Neck: supple Respiratory: diminished breath sounds Cardiovascular: regular rate and rhythm, edema Gastrointestinal: soft Results Result Diagram: 10/11/18 0532 10/11/18 0532 Results 24hrs Laboratory Tests Test 10/10/18 11:51 10/10/18 17:34 10/10/18 21:29 10/11/18 04:29 Bedside Glucose 194 138 260 H 120 Test 10/11/18 05:32 10/11/18 07:58 White Blood Count 5.8 Red Blood Count 3.46 L Hemoglobin 9.4 L Hematocrit 29.3 L Mean Corpuscular 84.7 Volume Mean Corpuscular 27.2 L Hemoglobin Mean Corpuscular 32.1 Hemoglobin Concent Red Cell 13.4 Distribution Width Platelet Count 508 H Mean Platelet Volume 11.4 H Immature 1.000 H Granulocytes % Neutrophils % 52.3 Lymphocytes % 29.6 Monocytes % 12.5 H Eosinophils % 3.7 Basophils % 0.9 Nucleated Red Blood 0.0 Cells % Immature 0.060 H Granulocytes # Neutrophils # 3.0 Lymphocytes # 1.7 Monocytes # 0.7 Eosinophils # 0.2 Basophils # 0.1 Nucleated Red Blood 0.0 Cells # Sodium Level 139 Potassium Level 4.2 Chloride Level 95 L Carbon Dioxide Level 36 H Anion Gap 8 Blood Urea Nitrogen 36 H Creatinine 0.99 Est Glomerular Filtrat Rate mL/min Glucose Level 120 Calcium Level 9.2 Total Bilirubin 0.2 Direct Bilirubin 0.00 Indirect Bilirubin 0.2 Aspartate Amino 89 H Transf (AST/SGOT) Alanine 159 H Aminotransferase (AL T/SGPT) Alkaline Phosphatase 120 Lactate 702 H Dehydrogenase Total Protein 6.7 Albumin 3.3 Globulin 3.40 H Albumin/Globulin 0.97 Ratio Procalcitonin 0.07 Bedside Glucose 132 Medications Medication Current Medications Aspirin (Halfprin) 81 mg DAILY PO Last administered on 10/11/18at 08:26; Admin Dose 81 MG; Start 09/24/18 at 09:00 IV Flush (NS 3 ml) 3 ml PER PROTOCOL IV ; Start 09/23/18 at 13:00 Lorazepam (Ativan) 0.5 mg Q8H PRN PO .ANXIETY Last administered on 10/08/18at 22:42; Admin Dose 0.5 MG; Start 09/23/18 at 13:00 Ondansetron HCl (Zofran Inj) 4 mg Q6H PRN IV NAUSEA/VOMITING; Start 09/23/18 at 13:00 Acetaminophen (Tylenol Tab) 650 mg Q6H PRN PO .PAIN 1-3 OR TEMP Last administered on 10/08/18at 22:42; Admin Dose 650 MG; Start 09/23/18 at 13:00 Zolpidem Tartrate (Ambien) 5 mg QHS PRN PO .INSOMNIA; Start 09/23/18 at 13:00 Docusate Sodium (Colace) 100 mg Q12H PRN PO .CONSTIPATION; Start 09/23/18 at 13:00 Magnesium Hydroxide (Milk Of Mag) 30 ml DAILY PRN PO .CONSTIPATION; Start 09/23/18 at 13:00 Miscellaneous Information 1 ea NOTE XX ; Start 09/23/18 at 13:30 Glucose (Glutose) 15 gm Q15M PRN PO DECREASED GLUCOSE; Start 09/23/18 at 13:30 Glucose (Glutose) 22.5 gm Q15M PRN PO DECREASED GLUCOSE; Start 09/23/18 at 13:30 Dextrose (D50w Syringe) 25 ml Q15M PRN IV DECREASED GLUCOSE; Start 09/23/18 at 13:30 Dextrose (D50w Syringe) 50 ml Q15M PRN IV DECREASED GLUCOSE; Start 09/23/18 at 13:30 Glucagon (Glucagen) 1 mg Q15M PRN IM DECREASED GLUCOSE; Start 09/23/18 at 13:30 Glucose (Glutose) 15 gm Q15M PRN BUCCAL DECREASED GLUCOSE; Start 09/23/18 at 13:30 Enoxaparin Sodium (Lovenox) 75 mg Q24H SC Last administered on 10/10/18at 14:11; Admin Dose 75 MG; Start 09/26/18 at 13:00 Lidocaine (Lidoderm) 1 patch DAILY TD Last administered on 10/11/18at 08:27; Admin Dose 1 PATCH; Start 09/26/18 at 12:00 Lorazepam (Ativan) 0.5 mg Q4H PRN IV ANXIETY Last administered on 09/29/18at 23:01; Admin Dose 0.5 MG; Start 09/26/18 at 19:30 Metoprolol Tartrate (Lopressor) 50 mg BID PO Last administered on 10/11/18 08:26; Admin Dose 50 MG; Start 09/27/18 at 21:00 Felodipine (Plendil) 2.5 mg DAILY PO Last administered on 10/11/18at 08:27; Adm in Dose 2.5 MG; Start 09/29/18 at 09:00 Famotidine (Pepcid) 20 mg DAILY PO Last administered on 10/11/18at 08:26; Admin Dose 20 MG; Start 09/30/18 at 09:00 Guaifenesin/ Codeine Phosphate (Robitussin Ac Liquid Cup) 5 ml Q4H PRN PO COUGH Last administered on 10/06/18 12:56; Admin Dose 5 ML; Start 10/01/18 at 10:30 Insulin Aspart (Novolog Insulin Pen) NOVOLOG *MODERATE* ALGORITHM WITH MEALS BEDTIME SC Last administered on 10/10/18 22:03; Admin Dose 2 UNIT; Start 10/01/18 at 11:30 Diagnostic Test (Pha) (Accu-Chek) 1 ea 02 XX Last administered on 10/11/18 02:00; Admin Dose 1 EA; Start 10/02/18 at 02:00 Eye Lubricant (Artificial Tears Oph) 2 drop PRN PRN BOTH EYES DRY EYES Last administered on 10/10/18 10:50; Admin Dose 2 DROP; Start 10/01/18 at 18:30 Docusate Sodium (Colace) 100 mg BID PO Last administered on 10/11/18 08:26; Admin Dose 100 MG; Start 10/02/18 at 13:00 Insulin Glargine (Lantus) 15 units DAILY@0800 SC Last administered on 10/11/18 08:25; Admin Dose 15 UNITS; Start 10/06/18 at 08:00 Magnesium Oxide (Mag-Ox 400) 400 mg DAILY PO Last administered on 10/11/18 08:26; Admin Dose 400 MG; Start 10/08/18 at 09:00 Meropenem/Sodium Chloride 50 ml @ 100 mls/hr Q12 IVPB Last administered on 10/11/18 08:25; Admin Dose 100 MLS/HR; Start 10/08/18 at 09:00 Doxycycline Hyclate (Vibramycin) 100 mg BID PO Last administered on 10/11/18 08:25; Admin Dose 100 MG; Start 10/08/18 at 09:00 Bumetanide 2 mg/ Dextrose 25 ml @ 50 mls/hr DAILY IV ; Start 10/11/18 at 09:00 GLEN JOE MD Oct 11, 2018 08:45
[2018-10-11] MEDS: BUMETANIDE 2 MG in DEXTROSE 5% 17 ML IV SCH (09:35)
[2018-10-11 11:25] VITALS: BP 115/56; PULSE 68; RESP 18
[2018-10-11] MEDS: ENOXAPARIN 80 MG/0.8 ML SYG SC SCH (13:20)
--- NOTE | 2018-10-11 14:58 | CONS ---
Consult Date/Type/Reason Admit Date/Time Sep 23, 2018 at 07:08 Initial Consult Date 09/25/18 Type of Consultation: Pulm/CCM Requesting Provider: GENARO SEPULVEDA MD Date/Time of Note DATE: 10/11/18 TIME: 14:55 Subjective Doing reasonably well on oxygen 4 L via NC. Objective Vitals Vital Signs Date Temp Pulse Resp B/P (MAP) Pulse Ox O2 O2 Flow FiO2 Time Delivery Rate 10/11/18 98.2 68 18 115/56 95 Nasal 11:25 (75) Cannula 10/11/18 4.0 09:43 10/10/18 36 02:17 Intake and Output 10/10/18 10/10/18 10/11/18 1515:00 23:00 07:00 IntakeIntake Total 480 ml 290 ml 120 ml OutputOutput Total 1850 ml 500 ml 450 ml BalanceBalance -1370 ml -210 ml -330 ml Exam NECK: Supple. No JVD or lymphadenopathy. CARDIAC EXAM: S1, S2. No added sounds or murmurs. CHEST: Diminished air entry bilaterally with few rales ABDOMEN: Soft, nontender. No guarding or rebound. EXTREMITIES: No cyanosis, clubbing or edema. NEUROLOGIC: Generalized weakness. No focal deficits. Results/Medications Result Diagram: 10/11/18 0532 10/11/18 0532 Results 24 hrs Laboratory Tests Test 10/10/18 17:34 10/10/18 21:29 10/11/18 04:29 10/11/18 05:32 Bedside Glucose 138 260 H 120 White Blood Count 5.8 Red Blood Count 3.46 L Hemoglobin 9.4 L Hematocrit 29.3 L Mean Corpuscular 84.7 Volume Mean Corpuscular 27.2 L Hemoglobin Mean Corpuscular 32.1 Hemoglobin Concent Red Cell 13.4 Distribution Width Platelet Count 508 H Mean Platelet Volume 11.4 H Immature 1.000 H Granulocytes % Neutrophils % 52.3 Lymphocytes % 29.6 Monocytes % 12.5 H Eosinophils % 3.7 Basophils % 0.9 Nucleated Red Blood 0.0 Cells % Immature 0.060 H Granulocytes # Neutrophils # 3.0 Lymphocytes # 1.7 Monocytes # 0.7 Eosinophils # 0.2 Basophils # 0.1 Nucleated Red Blood 0.0 Cells # Sodium Level 139 Potassium Level 4.2 Chloride Level 95 L Carbon Dioxide Level 36 H Anion Gap 8 Blood Urea Nitrogen 36 H Creatinine 0.99 Est Glomerular Filtrat Rate mL/min Glucose Level 120 Calcium Level 9.2 Total Bilirubin 0.2 Direct Bilirubin 0.00 Indirect Bilirubin 0.2 Aspartate Amino 89 H Transf (AST/SGOT) Alanine 159 H Aminotransferase (AL T/SGPT) Alkaline Phosphatase 120 Lactate 702 H Dehydrogenase Total Protein 6.7 Albumin 3.3 Globulin 3.40 H Albumin/Globulin 0.97 Ratio Procalcitonin 0.07 Test 10/11/18 07:58 10/11/18 11:50 Bedside Glucose 132 223 H Home Meds Reported Medications Omeprazole* (Omeprazole*) 40 Mg Capsule.dr, 40 MG PO DAILY, #30 CAP 09/23/18 Ferrous Sulfate* (Ferrous Sulfate*) 325 Mg Tabec, 325 MG PO TID, TAB 09/23/18 Felodipine* (Felodipine*) 5 Mg Tab.sr.24h, 5 MG PO BID, TAB.SA 09/23/18 Ascorbic Acid* (Vitamin C*) 500 Mg Capsule.sa, 500 MG PO DAILY, CAP 09/23/18 Metformin Hcl* (Metformin Hcl*) 500 Mg Tablet, 2000 MG PO WITH BREAKFAST DINNE, #60 TAB 09/23/18 Atorvastatin Calcium* (Atorvastatin Calcium*) 20 Mg Tablet, 20 MG PO QHS, #30 TAB 09/23/18 Losartan-Hydrochlorothiazide (Losartan-HCTZ) 100-25 Mg Tab, 1 TAB PO DAILY, TAB 09/23/18 Medications Current Medications Aspirin (Halfprin) 81 mg DAILY PO Last administered on 10/11/18at 08:26; Admin Dose 81 MG; Start 09/24/18 at 09:00 IV Flush (NS 3 ml) 3 ml PER PROTOCOL IV ; Start 09/23/18 at 13:00 Lorazepam (Ativan) 0.5 mg Q8H PRN PO .ANXIETY Last administered on 10/08/18at 22:42; Admin Dose 0.5 MG; Start 09/23/18 at 13:00 Ondansetron HCl (Zofran Inj) 4 mg Q6H PRN IV NAUSEA/VOMITING; Start 09/23/18 at 13:00 Acetaminophen (Tylenol Tab) 650 mg Q6H PRN PO .PAIN 1-3 OR TEMP Last administered on 10/08/18at 22:42; Admin Dose 650 MG; Start 09/23/18 at 13:00 Zolpidem Tartrate (Ambien) 5 mg QHS PRN PO .INSOMNIA; Start 09/23/18 at 13:00 Docusate Sodium (Colace) 100 mg Q12H PRN PO .CONSTIPATION; Start 09/23/18 at 13:00 Magnesium Hydroxide (Milk Of Mag) 30 ml DAILY PRN PO .CONSTIPATION; Start 09/23/18 at 13:00 Miscellaneous Information 1 ea NOTE XX ; Start 09/23/18 at 13:30 Glucose (Glutose) 15 gm Q15M PRN PO DECREASED GLUCOSE; Start 09/23/18 at 13:30 Glucose (Glutose) 22.5 gm Q15M PRN PO DECREASED GLUCOSE; Start 09/23/18 at 13:30 Dextrose (D50w Syringe) 25 ml Q15M PRN IV DECREASED GLUCOSE; Start 09/23/18 at 13:30 Dextrose (D50w Syringe) 50 ml Q15M PRN IV DECREASED GLUCOSE; Start 09/23/18 at 13:30 Glucagon (Glucagen) 1 mg Q15M PRN IM DECREASED GLUCOSE; Start 09/23/18 at 13:30 Glucose (Glutose) 15 gm Q15M PRN BUCCAL DECREASED GLUCOSE; Start 09/23/18 at 13:30 Enoxaparin Sodium (Lovenox) 75 mg Q24H SC Last administered on 10/11/18at 13:20; Admin Dose 75 MG; Start 09/26/18 at 13:00 Lidocaine (Lidoderm) 1 patch DAILY TD Last administered on 10/11/18at 08:27; Admin Dose 1 PATCH; Start 09/26/18 at 12:00 Lorazepam (Ativan) 0.5 mg Q4H PRN IV ANXIETY Last administered on 09/29/18at 23:01; Admin Dose 0.5 MG; Start 09/26/18 at 19:30 Metoprolol Tartrate (Lopressor) 50 mg BID PO Last administered on 10/11/18at 08:26; Admin Dose 50 MG; Start 09/27/18 at 21:00 Felodipine (Plendil) 2.5 mg DAILY PO Last administered on 10/11/18at 08:27; Admin Dose 2.5 MG; Start 09/29/18 at 09:00 Famotidine (Pepcid) 20 mg DAILY PO Last administered on 10/11/18 08:26; Admin Dose 20 MG; Start 09/30/18 at 09:00 Guaifenesin/ Codeine Phosphate (Robitussin Ac Liquid Cup) 5 ml Q4H PRN PO COUGH Last administered on 10/06/18 12:56; Admin Dose 5 ML; Start 10/01/18 at 10:30 Insulin Aspart (Novolog Insulin Pen) NOVOLOG *MODERATE* ALGORITHM WITH MEALS BEDTIME SC Last administered on 10/11/18 11:54; Admin Dose 6 UNIT; Start 10/01/18 at 11:30 Diagnostic Test (Pha) (Accu-Chek) 1 ea 02 XX Last administered on 10/11/18 02:00; Admin Dose 1 EA; Start 10/02/18 at 02:00 Eye Lubricant (Artificial Tears Oph) 2 drop PRN PRN BOTH EYES DRY EYES Last administered on 10/10/18 10:50; Admin Dose 2 DROP; Start 10/01/18 at 18:30 Docusate Sodium (Colace) 100 mg BID PO Last administered on 10/11/18 08:26; Admin Dose 100 MG; Start 10/02/18 at 13:00 Insulin Glargine (Lantus) 15 units DAILY@0800 SC Last administered on 10/11/18 08:25; Admin Dose 15 UNITS; Start 10/06/18 at 08:00 Magnesium Oxide (Mag-Ox 400) 400 mg DAILY PO Last administered on 10/11/18 08:26; Admin Dose 400 MG; Start 10/08/18 at 09:00 Meropenem/Sodium Chloride 50 ml @ 100 mls/hr Q12 IVPB Last administered on 10/11/18 08:25; Admin Dose 100 MLS/HR; Start 10/08/18 at 09:00 Doxycycline Hyclate (Vibramycin) 100 mg BID PO Last administered on 10/11/18 08:25; Admin Dose 100 MG; Start 10/08/18 at 09:00 Bumetanide 2 mg/ Dextrose 25 ml @ 50 mls/hr DAILY IV Last administered on 10/11/18 09:35; Admin Dose 50 MLS/HR; Start 10/11/18 at 09:00 Assessment/Plan Assessment/Plan (Daily) IMP: 1. Status post acute hypoxemic respiratory failure 2. ADHF 3. Query multifocal pneumonia 4. Recent non-ST elevation [place] RECS: 1. Keep I<O's 2. No indication for thoracentesis at this time 3. Titrate FiO2 HERSON ALMAZAN MD Oct 11, 2018 14:58
[2018-10-11 15:15] VITALS: BP 111/72; PULSE 69; RESP 20
[2018-10-11 20:00] VITALS: BP 126/58; PULSE 71; RESP 20
[2018-10-12] VITALS (7 sets, daily range): BP systolic 101–126; BP diastolic 52–61; PULSE 64–84; RESP 20
[2018-10-12] MEDS: ACCUCHECK AT 2AM (Patients on SS coverage) XX SCH (02:54)
--- NOTE | 2018-10-12 06:25 | CONS ---
Assessment/Plan Assessment/Plan Hospital Course (Demo Recall) 1) CHF, r/o pneumonia on levo/aztreanom since 09/24 check procalcitonin and if <0.25 to d/c aztreanom pt did not have some coryza before her CP and SOB so a viral etiology is possible, will order viral pcr of nares no sputum production so no cx possible but nasal for MRSA was neg of noted WBC normalized prior to start of antibiotics pt is anxious to get off biPAP so that she can drink fluids 09/26 - procalcitonin was elevated, c/w with a bacterial lung process continue with levo/aztreanom at present pt starting to bring up phlegm will order resp culture to repeat procalcitonin 09/27 - vanco was added by pulmonary yesterday, not clear for the reason (decreasing procalcitonin and normal WBC, no fever and neg MRSA screen) currently on levo/aztreanom/vanco CXR this a.m. shows more pulmonary edema and BNP is higher I will order swallow eval for patient sputum cx is normal respiratory radha to date I will sign off on case, pulmonary is managing the antibiotics 10/02 - asked to see pt again slow improvement with CXR and clinically procalcitonin is neg now, to repeat in a.m. d/c vanco/aztreanom and continue with levaquin but change to daily dosing at 250mg check BNP in a.m. too start stool softener (no stools since admission but just started to eat yesterday) 10/03 - continue with levaquin alone but change to po form pt is eating and had a solid stool await a.m. labs 10/06 - stable on oral levaquin, continue thru 10/07 (two week course) procalcitonin remains negative viral PCR was neg 10/08 - CXR and CT confirms new infiltrates to RUL check procalcitonin and start merrem/doxy check ESR and MIGUEL 10/09 - continue with merrem/doxy repeat CXR to see if thorancentesis is still needed ESR is pending 10/10 - ESR is extremely high, MIGUEL is pending will add ANCA CXR is improved continue merrem/doxy thru 7/10/12 - MIGUEL was neg, pt using less O2 (now on 3L) on merrem/doxy for a few more days 2) increase in LFT's this is much improved, likely it represented liver congestion due to heart failure 10/10 - abd u/s has been ordered 10/12 - abd u/s did not show any abscess or obstruction of biliary system LFT's are improving again 3) DM this rapidly improved since admission 4) distended bladder 10/10 - pt has kathleen in and still has distending bladder re-scan after kathleen was re-position externally and if still distended may need to adjust placement Consultation Date/Type/Reason Admit Date/Time Sep 23, 2018 at 07:08 Initial Consult Date 09/25/18 Type of Consult ID Requesting Provider: GENARO SEPULVEDA MD Date/Time of Note DATE: 10/12/18 TIME: 06:22 24 HR Interval Summary Free Text/Dictation doing well no N, V, D no CP pt able to sit up without dizziness Exam/Review of Systems Exam Vitals Vital Signs Date Temp Pulse Resp B/P (MAP) Pulse Ox O2 O2 Flow FiO2 Time Delivery Rate 10/12/18 98.0 64 20 114/56 96 04:00 (75) 10/11/18 Nasal 3.0 20:00 Cannula 10/10/18 36 02:17 Intake and Output 10/11/18 10/11/18 10/12/18 1515:00 23:00 07:00 IntakeIntake Total 250 ml 980 ml 200 ml OutputOutput Total 1100 ml 1400 ml BalanceBalance 250 ml -120 ml -1200 ml Constitutional: alert, oriented Respiratory: other (faint crackles at both lung bases) Cardiovascular: regular rate and rhythm Gastrointestinal: soft, non-tender Results Result Diagram: 10/11/18 0532 10/11/18 0532 Results 24hrs Laboratory Tests Test 10/11/18 07:58 10/11/18 11:50 10/11/18 17:16 10/11/18 20:19 Bedside Glucose 132 223 H 104 229 H Test 10/12/18 02:12 10/12/18 05:36 Bedside Glucose 112 Sodium Level Pending Potassium Level Pending Chloride Level Pending Carbon Dioxide Level Pending Anion Gap Pending Blood Urea Nitrogen Pending Creatinine Pending Est Glomerular Pending Filtrat Rate mL/min Glucose Level Pending Calcium Level Pending Ferritin Pending Total Bilirubin Pending Direct Bilirubin Pending Indirect Bilirubin Pending Aspartate Amino Pending Transf (AST/SGOT) Alanine Pending Aminotransferase (AL T/SGPT) Alkaline Phosphatase Pending Total Protein Pending Albumin Pending Globulin Pending Albumin/Globulin Pending Ratio Hepatitis B Surface Pending Antigen Hepatitis B Core Pending Total Antibody Hepatitis C Antibody Pending Medications Medication Current Medications Aspirin (Halfprin) 81 mg DAILY PO Last administered on 10/11/18at 08:26; Admin Dose 81 MG; Start 09/24/18 at 09:00 IV Flush (NS 3 ml) 3 ml PER PROTOCOL IV ; Start 09/23/18 at 13:00 Lorazepam (Ativan) 0.5 mg Q8H PRN PO .ANXIETY Last administered on 10/08/18at 22:42; Admin Dose 0.5 MG; Start 09/23/18 at 13:00 Ondansetron HCl (Zofran Inj) 4 mg Q6H PRN IV NAUSEA/VOMITING; Start 09/23/18 at 13:00 Acetaminophen (Tylenol Tab) 650 mg Q6H PRN PO .PAIN 1-3 OR TEMP Last administered on 10/08/18at 22:42; Admin Dose 650 MG; Start 09/23/18 at 13:00 Zolpidem Tartrate (Ambien) 5 mg QHS PRN PO .INSOMNIA; Start 09/23/18 at 13:00 Docusate Sodium (Colace) 100 mg Q12H PRN PO .CONSTIPATION; Start 09/23/18 at 13:00 Magnesium Hydroxide (Milk Of Mag) 30 ml DAILY PRN PO .CONSTIPATION; Start 03/03 at 13:00 Miscellaneous Information 1 ea NOTE XX ; Start 09/23/18 at 13:30 Glucose (Glutose) 15 gm Q15M PRN PO DECREASED GLUCOSE; Start 09/23/18 at 13:30 Glucose (Glutose) 22.5 gm Q15M PRN PO DECREASED GLUCOSE; Start 09/23/18 at 13:30 Dextrose (D50w Syringe) 25 ml Q15M PRN IV DECREASED GLUCOSE; Start 09/23/18 at 13:30 Dextrose (D50w Syringe) 50 ml Q15M PRN IV DECREASED GLUCOSE; Start 09/23/18 at 13:30 Glucagon (Glucagen) 1 mg Q15M PRN IM DECREASED GLUCOSE; Start 09/23/18 at 13:30 Glucose (Glutose) 15 gm Q15M PRN BUCCAL DECREASED GLUCOSE; Start 09/23/18 at 13:30 Enoxaparin Sodium (Lovenox) 75 mg Q24H SC Last administered on 10/11/18 13:20; Admin Dose 75 MG; Start 09/26/18 at 13:00 Lidocaine (Lidoderm) 1 patch DAILY TD Last administered on 10/11/18 08:27; Admin Dose 1 PATCH; Start 09/26/18 at 12:00 Lorazepam (Ativan) 0.5 mg Q4H PRN IV ANXIETY Last administered on 09/29/18 23:01; Admin Dose 0.5 MG; Start 09/26/18 at 19:30 Metoprolol Tartrate (Lopressor) 50 mg BID PO Last administered on 10/11/18 20:34; Admin Dose 50 MG; Start 09/27/18 at 21:00 Felodipine (Plendil) 2.5 mg DAILY PO Last administered on 10/11/18 08:27; Admin Dose 2.5 MG; Start 09/29/18 at 09:00 Famotidine (Pepcid) 20 mg DAILY PO Last administered on 10/11/18 08:26; Admin Dose 20 MG; Start 09/30/18 at 09:00 Guaifenesin/ Codeine Phosphate (Robitussin Ac Liquid Cup) 5 ml Q4H PRN PO COUGH Last administered on 10/06/18 12:56; Admin Dose 5 ML; Start 10/01/18 at 10:30 Insulin Aspart (Novolog Insulin Pen) NOVOLOG *MODERATE* ALGORITHM WITH MEALS BEDTIME SC Last administered on 10/11/18 22:21; Admin Dose 2 UNIT; Start 10/01/18 at 11:30 Diagnostic Test (Pha) (Accu-Chek) 1 ea 02 XX Last administered on 10/12/18 02:54; Admin Dose 1 EA; Start 10/02/18 at 02:00 Eye Lubricant (Artificial Tears Oph) 2 drop PRN PRN BOTH EYES DRY EYES Last administered on 10/10/18 10:50; Admin Dose 2 DROP; Start 10/01/18 at 18:30 Docusate Sodium (Colace) 100 mg BID PO Last administered on 10/11/18 20:21; Ad min Dose 100 MG; Start 10/02/18 at 13:00 Insulin Glargine (Lantus) 15 units DAILY@0800 SC Last administered on 10/11/18 08:25; Admin Dose 15 UNITS; Start 10/06/18 at 08:00 Magnesium Oxide (Mag-Ox 400) 400 mg DAILY PO Last administered on 10/11/18 08:26; Admin Dose 400 MG; Start 10/08/18 at 09:00 Meropenem/Sodium Chloride 50 ml @ 100 mls/hr Q12 IVPB Last administered on 10/11/18 20:21; Admin Dose 100 MLS/HR; Start 10/08/18 at 09:00 Doxycycline Hyclate (Vibramycin) 100 mg BID PO Last administered on 10/11/18 20:21; Admin Dose 100 MG; Start 10/08/18 at 09:00 Bumetanide 2 mg/ Dextrose 25 ml @ 50 mls/hr DAILY IV Last administered on 10/11/18 09:35; Admin Dose 50 MLS/HR; Start 10/11/18 at 09:00 HARPREET HALE MD Oct 12, 2018 06:25
[2018-10-12] MEDS: INSULIN ASPART [NOVOLOG] 3 ML PEN SC SCH ×4 (07:41→21:25)
[2018-10-12] MEDS: DOXYCYCLINE 100 MG TAB PO SCH ×2 (08:24→20:32)
[2018-10-12] MEDS: MAGNESIUM OXIDE 400 MG TAB PO SCH (08:24)
[2018-10-12] MEDS: DOCUSATE SODIUM 100 MG CAP PO SCH ×2 (08:24→20:32)
[2018-10-12] MEDS: ASPIRIN (EC) 81 MG TAB PO SCH (08:24)
[2018-10-12] MEDS: FAMOTIDINE 20 MG TAB PO SCH (08:24)
[2018-10-12] MEDS: FELODIPINE (ER) 2.5 MG TAB PO SCH (08:25)
[2018-10-12] MEDS: MEROPENEM 1 GM/50ML(PMX) 50 ML IVPB SCH ×2 (08:25→20:32)
[2018-10-12] MEDS: METOPROLOL 50 MG TAB PO SCH ×2 (08:25→20:33)
[2018-10-12] MEDS: BUMETANIDE 2 MG in DEXTROSE 5% 17 ML IV SCH (08:25)
[2018-10-12] MEDS: LIDOCAINE 5% PATCH TD SCH (08:26)
[2018-10-12] MEDS: INSULIN GLARGINE [LANTus] (100 UNITS/ML) SYG SC SCH (08:30)
[2018-10-12] MEDS: ENOXAPARIN 80 MG/0.8 ML SYG SC SCH (13:46)
--- NOTE | 2018-10-12 16:17 | CONS ---
Assessment/Plan Assessment/Plan Assessment/Plan (Daily) Assessment/Plan (Daily) 1. Multi lobar broncho pneumonia possible ARDS w component of possible acute diastolic HF: improving and monitored by pulm/ on abx per id. afebrile 2. Non-ST elevation myocardial infarction. no ongoing cp. for cardiac angio in am. carotid study negative 3. Hypertension.fair control. monitor and adjust meds 4. Type 2 diabetes.cont iss/ meds 5. Mild to moderate aortic stenosis.await cardiac angio 6. Acute diastolic heart failure.cont diuretics 7. Gout.no acute attack 8. Normocytic anemia.monitor and check iron sats 9. Hyperlipidemia.on statin 10 History of breast cancer. 11. Renal insufficiency.cr remains stable. monitor while diuresing/ had distended bladder now with kathleen / some residual hydro noted. may need gu eval 12. PAF- < 24hr, converted to nsr. 13. elevated LFts : ? passive congestion. ultrasound with fatty liver. cont to monitor labs Consultation Date/Type/Reason Admit Date/Time Sep 23, 2018 at 07:08 Initial Consult Date 09/25/18 Requesting Provider: GENARO SEPULVEDA MD Date/Time of Note DATE: 10/12/18 TIME: 16:09 24 HR Interval Summary Free Text/Dictation generally better. o2 requirements improving. scheduled for angio tomorrow Exam/Review of Systems Exam Vitals Vital Signs Date Temp Pulse Resp B/P (MAP) Pulse Ox O2 O2 Flow FiO2 Time Delivery Rate 10/12/18 2.0 15:40 10/12/18 97.9 71 20 102/52 98 Nasal 15:00 (69) Cannula 10/10/18 36 02:17 Intake and Output 10/11/18 10/11/18 10/12/18 1515:00 23:00 07:00 IntakeIntake Total 250 ml 980 ml 200 ml OutputOutput Total 1100 ml 1400 ml BalanceBalance 250 ml -120 ml -1200 ml Constitutional: alert, frail Head: normocephalic Neck: supple, jvd Respiratory: diminished breath sounds Cardiovascular: regular rate and rhythm, edema Gastrointestinal: soft Results Result Diagram: 10/12/18 0536 10/12/18 0536 Results 24hrs Laboratory Tests Test 10/11/18 17:16 10/11/18 20:19 10/12/18 02:12 10/12/18 05:36 Bedside Glucose 104 229 H 112 White Blood Count 5.8 Red Blood Count 3.49 L Hemoglobin 9.6 L Hematocrit 30.1 L Mean Corpuscular 86.2 Volume Mean Corpuscular 27.5 L Hemoglobin Mean Corpuscular 31.9 L Hemoglobin Concent Red Cell 13.6 Distribution Width Platelet Count 528 H Mean Platelet Volume 11.2 H Immature 0.900 H Granulocytes % Neutrophils % 52.6 Lymphocytes % 29.5 Monocytes % 11.6 H Eosinophils % 4.2 Basophils % 1.2 Nucleated Red Blood 0.0 Cells % Immature 0.050 H Granulocytes # Neutrophils # 3.0 Lymphocytes # 1.7 Monocytes # 0.7 Eosinophils # 0.2 Basophils # 0.1 Nucleated Red Blood 0.0 Cells # Sodium Level 139 Potassium Level 4.7 Chloride Level 94 L Carbon Dioxide Level 36 H Anion Gap 9 Blood Urea Nitrogen 37 H Creatinine 0.82 Est Glomerular Filtrat Rate mL/min Glucose Level 106 Calcium Level 9.9 Iron Level 44 Total Iron Binding 242 Capacity Percent Iron 18 L Saturation Ferritin 676.0 H Total Bilirubin 0.1 L Direct Bilirubin 0.00 Indirect Bilirubin 0.1 Aspartate Amino 95 H Transf (AST/SGOT) Alanine 166 H Aminotransferase (AL T/SGPT) Alkaline Phosphatase 114 Total Protein 5.9 L Albumin 3.2 L Globulin 2.70 Albumin/Globulin 1.18 Ratio Hepatitis B Surface NEGATIVE Antigen Hepatitis B Core NEGATIVE Total Antibody Hepatitis C Antibody NEGATIVE Test 10/12/18 07:40 10/12/18 11:50 Bedside Glucose 129 179 Medications Medication Current Medications Aspirin (Halfprin) 81 mg DAILY PO Last administered on 10/12/18at 08:24; Admin Dose 81 MG; Start 09/24/18 at 09:00 IV Flush (NS 3 ml) 3 ml PER PROTOCOL IV ; Start 09/23/18 at 13:00 Lorazepam (Ativan) 0.5 mg Q8H PRN PO .ANXIETY Last administered on 10/08/18at 22:42; Admin Dose 0.5 MG; Start 09/23/18 at 13:00 Ondansetron HCl (Zofran Inj) 4 mg Q6H PRN IV NAUSEA/VOMITING; Start 09/23/18 at 13:00 Acetaminophen (Tylenol Tab) 650 mg Q6H PRN PO .PAIN 1-3 OR TEMP Last administered on 10/08/18at 22:42; Admin Dose 650 MG; Start 09/23/18 at 13:00 Zolpidem Tartrate (Ambien) 5 mg QHS PRN PO .INSOMNIA; Start 09/23/18 at 13:00 Docusate Sodium (Colace) 100 mg Q12H PRN PO .CONSTIPATION; Start 09/23/18 at 13:00 Magnesium Hydroxide (Milk Of Mag) 30 ml DAILY PRN PO .CONSTIPATION; Start 09/23/18 at 13:00 Miscellaneous Information 1 ea NOTE XX ; Start 09/23/18 at 13:30 Glucose (Glutose) 15 gm Q15M PRN PO DECREASED GLUCOSE; Start 09/23/18 at 13:30 Glucose (Glutose) 22.5 gm Q15M PRN PO DECREASED GLUCOSE; Start 09/23/18 at 13:30 Dextrose (D50w Syringe) 25 ml Q15M PRN IV DECREASED GLUCOSE; Start 09/23/18 at 13:30 Dextrose (D50w Syringe) 50 ml Q15M PRN IV DECREASED GLUCOSE; Start 09/23/18 at 13:30 Glucagon (Glucagen) 1 mg Q15M PRN IM DECREASED GLUCOSE; Start 09/23/18 at 13:30 Glucose (Glutose) 15 gm Q15M PRN BUCCAL DECREASED GLUCOSE; Start 09/23/18 at 13:30 Enoxaparin Sodium (Lovenox) 75 mg Q24H SC Last administered on 10/12/18at 13:46; Admin Dose 75 MG; Start 09/26/18 at 13:00 Lidocaine (Lidoderm) 1 patch DAILY TD Last administered on 10/12/18at 08:26; Admin Dose 1 PATCH; Start 09/26/18 at 12:00 Lorazepam (Ativan) 0.5 mg Q4H PRN IV ANXIETY Last administered on 09/29/18at 23:01; Admin Dose 0.5 MG; Start 09/26/18 at 19:30 Metoprolol Tartrate (Lopressor) 50 mg BID PO Last administered on 10/12/18 08:25; Admin Dose 50 MG; Start 09/27/18 at 21:00 Felodipine (Plendil) 2.5 mg DAILY PO Last administered on 10/12/18 08:25; Admin Dose 2.5 MG; Start 09/29/18 at 09:00 Famotidine (Pepcid) 20 mg DAILY PO Last administered on 10/12/18 08:24; Admin Dose 20 MG; Start 09/30/18 at 09:00 Guaifenesin/ Codeine Phosphate (Robitussin Ac Liquid Cup) 5 ml Q4H PRN PO COUGH Last administered on 10/06/18 12:56; Admin Dose 5 ML; Start 10/01/18 at 10:30 Insulin Aspart (Novolog Insulin Pen) NOVOLOG *MODERATE* ALGORITHM WITH MEALS BEDTIME SC Last administered on 10/12/18 11:57; Admin Dose 2 UNIT; Start 10/01/18 at 11:30 Diagnostic Test (Pha) (Accu-Chek) 1 ea 02 XX Last administered on 10/12/18 02:54; Admin Dose 1 EA; Start 10/02/18 at 02:00 Eye Lubricant (Artificial Tears Oph) 2 drop PRN PRN BOTH EYES DRY EYES Last administered on 10/10/18 10:50; Admin Dose 2 DROP; Start 10/01/18 at 18:30 Docusate Sodium (Colace) 100 mg BID PO Last administered on 10/12/18 08:24; Admin Dose 100 MG; Start 10/02/18 at 13:00 Insulin Glargine (Lantus) 15 units DAILY@0800 SC Last administered on 10/12/18 08:30; Admin Dose 15 UNITS; Start 10/06/18 at 08:00 Magnesium Oxide (Mag-Ox 400) 400 mg DAILY PO Last administered on 10/12/18 08:24; Admin Dose 400 MG; Start 10/08/18 at 09:00 Meropenem/Sodium Chloride 50 ml @ 100 mls/hr Q12 IVPB Last administered on 10/12/18 08:25; Admin Dose 100 MLS/HR; Start 10/08/18 at 09:00 Doxycycline Hyclate (Vibramycin) 100 mg BID PO Last administered on 10/12/18 08:24; Admin Dose 100 MG; Start 10/08/18 at 09:00 Bumetanide 2 mg/ Dextrose 25 ml @ 50 mls/hr DAILY IV Last administered on 10/12/18 08:25; Admin Dose 50 MLS/HR; Start 10/11/18 at 09:00 GLEN JOE MD Oct 12, 2018 16:17
--- NOTE | 2018-10-12 17:02 | CONS ---
Consult Date/Type/Reason Admit Date/Time Sep 23, 2018 at 07:08 Initial Consult Date 09/25/18 Type of Consultation: Pulm/CCM Requesting Provider: GENARO SEPULVEDA MD Date/Time of Note DATE: 10/12/18 TIME: 17:01 Subjective No events overnight. Doing well on 2L O2 via NC. Objective Vitals Vital Signs Date Temp Pulse Resp B/P (MAP) Pulse Ox O2 O2 Flow FiO2 Time Delivery Rate 10/12/18 2.0 15:40 10/12/18 97.9 71 20 102/52 98 Nasal 15:00 (69) Cannula 10/10/18 36 02:17 Intake and Output 10/11/18 10/11/18 10/12/18 1515:00 23:00 07:00 IntakeIntake Total 250 ml 980 ml 200 ml OutputOutput Total 1100 ml 1400 ml BalanceBalance 250 ml -120 ml -1200 ml Exam NECK: Supple. No JVD or lymphadenopathy. CARDIAC EXAM: S1, S2. No added sounds or murmurs. CHEST: Diminished air entry bilaterally with few rales ABDOMEN: Soft, nontender. No guarding or rebound. EXTREMITIES: No cyanosis, clubbing or edema. NEUROLOGIC: Generalized weakness. No focal deficits. Results/Medications Result Diagram: 10/12/18 0536 10/12/18 0536 Results 24 hrs Laboratory Tests Test 10/11/18 17:16 10/11/18 20:19 10/12/18 02:12 10/12/18 05:36 Bedside Glucose 104 229 H 112 White Blood Count 5.8 Red Blood Count 3.49 L Hemoglobin 9.6 L Hematocrit 30.1 L Mean Corpuscular 86.2 Volume Mean Corpuscular 27.5 L Hemoglobin Mean Corpuscular 31.9 L Hemoglobin Concent Red Cell 13.6 Distribution Width Platelet Count 528 H Mean Platelet Volume 11.2 H Immature 0.900 H Granulocytes % Neutrophils % 52.6 Lymphocytes % 29.5 Monocytes % 11.6 H Eosinophils % 4.2 Basophils % 1.2 Nucleated Red Blood 0.0 Cells % Immature 0.050 H Granulocytes # Neutrophils # 3.0 Lymphocytes # 1.7 Monocytes # 0.7 Eosinophils # 0.2 Basophils # 0.1 Nucleated Red Blood 0.0 Cells # Sodium Level 139 Potassium Level 4.7 Chloride Level 94 L Carbon Dioxide Level 36 H Anion Gap 9 Blood Urea Nitrogen 37 H Creatinine 0.82 Est Glomerular Filtrat Rate mL/min Glucose Level 106 Calcium Level 9.9 Iron Level 44 Total Iron Binding 242 Capacity Percent Iron 18 L Saturation Ferritin 676.0 H Total Bilirubin 0.1 L Direct Bilirubin 0.00 Indirect Bilirubin 0.1 Aspartate Amino 95 H Transf (AST/SGOT) Alanine 166 H Aminotransferase (AL T/SGPT) Alkaline Phosphatase 114 Total Protein 5.9 L Albumin 3.2 L Globulin 2.70 Albumin/Globulin 1.18 Ratio Hepatitis B Surface NEGATIVE Antigen Hepatitis B Core NEGATIVE Total Antibody Hepatitis C Antibody NEGATIVE Test 10/12/18 07:40 10/12/18 11:50 Bedside Glucose 129 179 Home Meds Reported Medications Omeprazole* (Omeprazole*) 40 Mg Capsule.dr, 40 MG PO DAILY, #30 CAP 09/23/18 Ferrous Sulfate* (Ferrous Sulfate*) 325 Mg Tabec, 325 MG PO TID, TAB 09/23/18 Felodipine* (Felodipine*) 5 Mg Tab.sr.24h, 5 MG PO BID, TAB.SA 09/23/18 Ascorbic Acid* (Vitamin C*) 500 Mg Capsule.sa, 500 MG PO DAILY, CAP 09/23/18 Metformin Hcl* (Metformin Hcl*) 500 Mg Tablet, 2000 MG PO WITH BREAKFAST DINNE, #60 TAB 09/23/18 Atorvastatin Calcium* (Atorvastatin Calcium*) 20 Mg Tablet, 20 MG PO QHS, #30 TAB 09/23/18 Losartan-Hydrochlorothiazide (Losartan-HCTZ) 100-25 Mg Tab, 1 TAB PO DAILY, TAB 09/23/18 Medications Current Medications Aspirin (Halfprin) 81 mg DAILY PO Last administered on 10/12/18at 08:24; Admin Dose 81 MG; Start 09/24/18 at 09:00 IV Flush (NS 3 ml) 3 ml PER PROTOCOL IV ; Start 09/23/18 at 13:00 Lorazepam (Ativan) 0.5 mg Q8H PRN PO .ANXIETY Last administered on 10/08/18at 22:42; Admin Dose 0.5 MG; Start 09/23/18 at 13:00 Ondansetron HCl (Zofran Inj) 4 mg Q6H PRN IV NAUSEA/VOMITING; Start 09/23/18 at 13:00 Acetaminophen (Tylenol Tab) 650 mg Q6H PRN PO .PAIN 1-3 OR TEMP Last administered on 10/08/18at 22:42; Admin Dose 650 MG; Start 09/23/18 at 13:00 Zolpidem Tartrate (Ambien) 5 mg QHS PRN PO .INSOMNIA; Start 09/23/18 at 13:00 Docusate Sodium (Colace) 100 mg Q12H PRN PO .CONSTIPATION; Start 09/23/18 at 13:00 Magnesium Hydroxide (Milk Of Mag) 30 ml DAILY PRN PO .CONSTIPATION; Start 09/23/18 at 13:00 Miscellaneous Information 1 ea NOTE XX ; Start 09/23/18 at 13:30 Glucose (Glutose) 15 gm Q15M PRN PO DECREASED GLUCOSE; Start 09/23/18 at 13:30 Glucose (Glutose) 22.5 gm Q15M PRN PO DECREASED GLUCOSE; Start 09/23/18 at 13:30 Dextrose (D50w Syringe) 25 ml Q15M PRN IV DECREASED GLUCOSE; Start 09/23/18 at 13:30 Dextrose (D50w Syringe) 50 ml Q15M PRN IV DECREASED GLUCOSE; Start 09/23/18 at 13:30 Glucagon (Glucagen) 1 mg Q15M PRN IM DECREASED GLUCOSE; Start 09/23/18 at 13:30 Glucose (Glutose) 15 gm Q15M PRN BUCCAL DECREASED GLUCOSE; Start 09/23/18 at 13:30 Enoxaparin Sodium (Lovenox) 75 mg Q24H SC Last administered on 10/12/18at 13:46; Admin Dose 75 MG; Start 09/26/18 at 13:00 Lidocaine (Lidoderm) 1 patch DAILY TD Last administered on 10/12/18 08:26; Admin Dose 1 PATCH; Start 09/26/18 at 12:00 Lorazepam (Ativan) 0.5 mg Q4H PRN IV ANXIETY Last administered on 09/29/18at 23:01; Admin Dose 0.5 MG; Start 09/26/18 at 19:30 Metoprolol Tartrate (Lopressor) 50 mg BID PO Last administered on 10/12/18 08:25; Admin Dose 50 MG; Start 09/27/18 at 21:00 Felodipine (Plendil) 2.5 mg DAILY PO Last administered on 10/12/18 08:25; Admin Dose 2.5 MG; Start 09/29/18 at 09:00 Famotidine (Pepcid) 20 mg DAILY PO Last administered on 10/12/18 08:24; Admin Dose 20 MG; Start 09/30/18 at 09:00 Guaifenesin/ Codeine Phosphate (Robitussin Ac Liquid Cup) 5 ml Q4H PRN PO COUGH Last administered on 10/06/18 12:56; Admin Dose 5 ML; Start 10/01/18 at 10:30 Insulin Aspart (Novolog Insulin Pen) NOVOLOG *MODERATE* ALGORITHM WITH MEALS BEDTIME SC Last administered on 10/12/18 11:57; Admin Dose 2 UNIT; Start 10/01/18 at 11:30 Diagnostic Test (Pha) (Accu-Chek) 1 ea 02 XX Last administered on 10/12/18 02:54; Admin Dose 1 EA; Start 10/02/18 at 02:00 Eye Lubricant (Artificial Tears Oph) 2 drop PRN PRN BOTH EYES DRY EYES Last administered on 10/10/18 10:50; Admin Dose 2 DROP; Start 10/01/18 at 18:30 Docusate Sodium (Colace) 100 mg BID PO Last administered on 10/12/18 08:24; Admin Dose 100 MG; Start 10/02/18 at 13:00 Insulin Glargine (Lantus) 15 units DAILY@0800 SC Last administered on 10/12/18 08:30; Admin Dose 15 UNITS; Start 10/06/18 at 08:00 Magnesium Oxide (Mag-Ox 400) 400 mg DAILY PO Last administered on 10/12/18 08:24; Admin Dose 400 MG; Start 10/08/18 at 09:00 Meropenem/Sodium Chloride 50 ml @ 100 mls/hr Q12 IVPB Last administered on 10/12/18 08:25; Admin Dose 100 MLS/HR; Start 10/08/18 at 09:00 Doxycycline Hyclate (Vibramycin) 100 mg BID PO Last administered on 10/12/18 08:24; Admin Dose 100 MG; Start 10/08/18 at 09:00 Bumetanide 2 mg/ Dextrose 25 ml @ 50 mls/hr DAILY IV Last administered on 10/12/18 08:25; Admin Dose 50 MLS/HR; Start 10/11/18 at 09:00 Assessment/Plan Assessment/Plan (Daily) IMP: 1. Status post acute hypoxemic respiratory failure 2. ADHF 3. Query multifocal pneumonia 4. Recent non-ST elevation DC RECS: 1. Keep I<O's 2. No indication for thoracentesis at this time; follow CXR in 2-3 days 3. Titrate FiO2 as tolerated HERSON ALMAZAN MD Oct 12, 2018 17:02
--- NOTE | 2018-10-12 22:30 | CONS ---
Assessment/Plan Assessment/Plan Hospital Course (Demo Recall) ASSESSMENT: 1. Multi lobar broncho pneumonia possible ARDS w component of possible acute d iastolic HF 2. Non-ST elevation myocardial infarction. 3. Hypertension. 4. Type 2 diabetes. 5. Mild to moderate aortic stenosis. 6. Acute diastolic heart failure. 7. Gout. 8. Normocytic anemia. 9. Hyperlipidemia. 10 History of breast cancer. 11. Renal insufficiency. 12. PAF- < 24hr, converted to nsr. PLAN: 1. bun inc stable. hold diuretics for heart cath/dye load. will check LVEDP to help guide diuresis 2. continue asa,felodipine. ok to hold atorvastatin given elevated lft, trend 3. watch electrolytes 4. tele without recurrent afib, monitor 5. plan for [facility] saturday at 730 am, pt/niece aware of risks/benefits/alternative, agree to proceed. npo at [facility] [place] Consultation Date/Type/Reason Admit Date/Time Sep 23, 2018 at 07:08 Initial Consult Date 09/25/18 Type of Consult cardiology Requesting Provider: GENARO SEPULVEDA MD Date/Time of Note DATE: 10/12/18 TIME: 22:27 24 HR Interval Summary Free Text/Dictation no acute events. no cp. sob stable on 3LNC O2. no palp, dizziness. tele reviewed nsr Constitutional: no complaints Detailed Summary Eyes: no complaints ENT: no complaints Respiratory: shortness of breath Cardiovascular: no complaints Exam/Review of Systems Exam Vitals Vital Signs Date Temp Pulse Resp B/P (MAP) Pulse Ox O2 O2 Flow FiO2 Time Delivery Rate 10/12/18 97.8 84 20 112/60 95 20:00 (77) 10/12/18 Nasal 3.0 19:43 Cannula 10/10/18 36 02:17 Intake and Output 10/11/18 10/11/18 10/12/18 1515:00 23:00 07:00 IntakeIntake Total 250 ml 980 ml 200 ml OutputOutput Total 1100 ml 1400 ml BalanceBalance 250 ml -120 ml -1200 ml Exam HEENT; no JVD, no HJR, carotids 2 over 4+ without bruits. Chest: coarse Cardiac: S4, S1, S2 with normal physiologic splitting, 2/6 early to mid peaking systolic ejection murmur, no rub click or diastolic murmur noted. Abdominal: Bowel sounds positive, soft nontender, no abdominal bruit noted, no hepatosplenomegaly. Extremities: No cyanosis, clubbing, or edema. Negative Homans sign or palpable cords. Pulses: 2/4 pulses diffusely no bruits noted. Results Result Diagram: 10/12/18 0536 10/12/18 0536 Results 24hrs Laboratory Tests Test 10/12/18 02:12 10/12/18 05:36 10/12/18 07:40 10/12/18 11:50 Bedside Glucose 112 129 179 White Blood Count 5.8 Red Blood Count 3.49 L Hemoglobin 9.6 L Hematocrit 30.1 L Mean Corpuscular 86.2 Volume Mean Corpuscular 27.5 L Hemoglobin Mean Corpuscular 31.9 L Hemoglobin Concent Red Cell 13.6 Distribution Width Platelet Count 528 H Mean Platelet Volume 11.2 H Immature 0.900 H Granulocytes % Neutrophils % 52.6 Lymphocytes % 29.5 Monocytes % 11.6 H Eosinophils % 4.2 Basophils % 1.2 Nucleated Red Blood 0.0 Cells % Immature 0.050 H Granulocytes # Neutrophils # 3.0 Lymphocytes # 1.7 Monocytes # 0.7 Eosinophils # 0.2 Basophils # 0.1 Nucleated Red Blood 0.0 Cells # Sodium Level 139 Potassium Level 4.7 Chloride Level 94 L Carbon Dioxide Level 36 H Anion Gap 9 Blood Urea Nitrogen 37 H Creatinine 0.82 Est Glomerular Filtrat Rate mL/min Glucose Level 106 Calcium Level 9.9 Iron Level 44 Total Iron Binding 242 Capacity Percent Iron 18 L Saturation Ferritin 676.0 H Total Bilirubin 0.1 L Direct Bilirubin 0.00 Indirect Bilirubin 0.1 Aspartate Amino 95 H Transf (AST/SGOT) Alanine 166 H Aminotransferase (AL T/SGPT) Alkaline Phosphatase 114 Total Protein 5.9 L Albumin 3.2 L Globulin 2.70 Albumin/Globulin 1.18 Ratio Hepatitis B Surface NEGATIVE Antigen Hepatitis B Core NEGATIVE Total Antibody Hepatitis C Antibody NEGATIVE Test 10/12/18 17:18 10/12/18 20:31 Bedside Glucose 137 229 H Imaging Imaging abd us reviewed Medications Medication Current Medications Aspirin (Halfprin) 81 mg DAILY PO Last administered on 10/12/18at 08:24; Admin Dose 81 MG; Start 09/24/18 at 09:00 IV Flush (NS 3 ml) 3 ml PER PROTOCOL IV ; Start 09/23/18 at 13:00 Lorazepam (Ativan) 0.5 mg Q8H PRN PO .ANXIETY Last administered on 10/08/18at 22:42; Admin Dose 0.5 MG; Start 09/23/18 at 13:00 Ondansetron HCl (Zofran Inj) 4 mg Q6H PRN IV NAUSEA/VOMITING; Start 09/23/18 at 13:00 Acetaminophen (Tylenol Tab) 650 mg Q6H PRN PO .PAIN 1-3 OR TEMP Last administered on 10/08/18at 22:42; Admin Dose 650 MG; Start 09/23/18 at 13:00 Zolpidem Tartrate (Ambien) 5 mg QHS PRN PO .INSOMNIA; Start 09/23/18 at 13:00 Docusate Sodium (Colace) 100 mg Q12H PRN PO .CONSTIPATION; Start 09/23/18 at 13:00 Magnesium Hydroxide (Milk Of Mag) 30 ml DAILY PRN PO .CONSTIPATION; Start 09/23/18 at 13:00 Miscellaneous Information 1 ea NOTE XX ; Start 09/23/18 at 13:30 Glucose (Glutose) 15 gm Q15M PRN PO DECREASED GLUCOSE; Start 09/23/18 at 13:30 Glucose (Glutose) 22.5 gm Q15M PRN PO DECREASED GLUCOSE; Start 09/23/18 at 13:30 Dextrose (D50w Syringe) 25 ml Q15M PRN IV DECREASED GLUCOSE; Start 09/23/18 at 13:30 Dextrose (D50w Syringe) 50 ml Q15M PRN IV DECREASED GLUCOSE; Start 09/23/18 at 13:30 Glucagon (Glucagen) 1 mg Q15M PRN IM DECREASED GLUCOSE; Start 09/23/18 at 13:30 Glucose (Glutose) 15 gm Q15M PRN BUCCAL DECREASED GLUCOSE; Start 09/23/18 at 13:30 Enoxaparin Sodium (Lovenox) 75 mg Q24H SC Last administered on 10/12/18at 13:46; Admin Dose 75 MG; Start 09/26/18 at 13:00; Status Hold Lidocaine (Lidoderm) 1 patch DAILY TD Last administered on 10/12/18at 08:26; Admin Dose 1 PATCH; Start 09/26/18 at 12:00 Lorazepam (Ativan) 0.5 mg Q4H PRN IV ANXIETY Last administered on 09/29/18 2 3:01; Admin Dose 0.5 MG; Start 09/26/18 at 19:30 Metoprolol Tartrate (Lopressor) 50 mg BID PO Last administered on 10/12/18 20:33; Admin Dose 50 MG; Start 09/27/18 at 21:00 Felodipine (Plendil) 2.5 mg DAILY PO Last administered on 10/12/18 08:25; Admin Dose 2.5 MG; Start 09/29/18 at 09:00 Famotidine (Pepcid) 20 mg DAILY PO Last administered on 10/12/18 08:24; Admin Dose 20 MG; Start 09/30/18 at 09:00 Guaifenesin/ Codeine Phosphate (Robitussin Ac Liquid Cup) 5 ml Q4H PRN PO COUGH Last administered on 10/06/18 12:56; Admin Dose 5 ML; Start 10/01/18 at 10:30 Insulin Aspart (Novolog Insulin Pen) NOVOLOG *MODERATE* ALGORITHM WITH MEALS BEDTIME SC Last administered on 10/12/18 21:25; Admin Dose 2 UNIT; Start 10/01/18 at 11:30 Diagnostic Test (Pha) (Accu-Chek) 1 ea 02 XX Last administered on 10/12/18 02:54; Admin Dose 1 EA; Start 10/02/18 at 02:00 Eye Lubricant (Artificial Tears Oph) 2 drop PRN PRN BOTH EYES DRY EYES Last administered on 10/10/18 10:50; Admin Dose 2 DROP; Start 10/01/18 at 18:30 Docusate Sodium (Colace) 100 mg BID PO Last administered on 10/12/18 20:32; Admin Dose 100 MG; Start 10/02/18 at 13:00 Insulin Glargine (Lantus) 15 units DAILY@0800 SC Last administered on 10/12/18 08:30; Admin Dose 15 UNITS; Start 10/06/18 at 08:00 Magnesium Oxide (Mag-Ox 400) 400 mg DAILY PO Last administered on 10/12/18 08:24; Admin Dose 400 MG; Start 10/08/18 at 09:00 Meropenem/Sodium Chloride 50 ml @ 100 mls/hr Q12 IVPB Last administered on 10/12/18 20:32; Admin Dose 100 MLS/HR; Start 10/08/18 at 09:00 Doxycycline Hyclate (Vibramycin) 100 mg BID PO Last administered on 10/12/18 20:32; Admin Dose 100 MG; Start 10/08/18 at 09:00 Bumetanide 2 mg/ Dextrose 25 ml @ 50 mls/hr DAILY IV Last administered on 10/12/18 08:25; Admin Dose 50 MLS/HR; Start 10/11/18 at 09:00; Status Hold YAIMA BARROW Oct 12, 2018 22:30
[2018-10-13] VITALS (16 sets, daily range): BP systolic 103–139; BP diastolic 49–78; PULSE 72–86; RESP 17–21
[2018-10-13] MEDS: ACCUCHECK AT 2AM (Patients on SS coverage) XX SCH (02:00)
--- NOTE | 2018-10-13 06:47 | CONS ---
Assessment/Plan Assessment/Plan Hospital Course (Demo Recall) 1) CHF, r/o pneumonia on levo/aztreanom since 09/24 check procalcitonin and if <0.25 to d/c aztreanom pt did not have some coryza before her CP and SOB so a viral etiology is possible, will order viral pcr of nares no sputum production so no cx possible but nasal for MRSA was neg of noted WBC normalized prior to start of antibiotics pt is anxious to get off biPAP so that she can drink fluids 09/26 - procalcitonin was elevated, c/w with a bacterial lung process continue with levo/aztreanom at present pt starting to bring up phlegm will order resp culture to repeat procalcitonin 09/27 - vanco was added by pulmonary yesterday, not clear for the reason (decreasing procalcitonin and normal WBC, no fever and neg MRSA screen) currently on levo/aztreanom/vanco CXR this a.m. shows more pulmonary edema and BNP is higher I will order swallow eval for patient sputum cx is normal respiratory radha to date I will sign off on case, pulmonary is managing the antibiotics 10/02 - asked to see pt again slow improvement with CXR and clinically procalcitonin is neg now, to repeat in a.m. d/c vanco/aztreanom and continue with levaquin but change to daily dosing at 250mg check BNP in a.m. too start stool softener (no stools since admission but just started to eat yesterday) 10/03 - continue with levaquin alone but change to po form pt is eating and had a solid stool await a.m. labs 10/06 - stable on oral levaquin, continue thru 10/07 (two week course) procalcitonin remains negative viral PCR was neg 10/08 - CXR and CT confirms new infiltrates to RUL check procalcitonin and start merrem/doxy check ESR and MIGUEL 10/09 - continue with merrem/doxy repeat CXR to see if thorancentesis is still needed ESR is pending 10/10 - ESR is extremely high, MIGUEL is pending will add ANCA CXR is improved continue merrem/doxy thru 7/10/12 - MIGUEL was neg, pt using less O2 (now on 3L) on merrem/doxy for a few more days 10/13 - repeat procalcitonin and if still neg to d/c merrem and continue just oral doxy for a few days pt to get angio this a.m. 2) increase in LFT's this is much improved, likely it represented liver congestion due to heart failure 10/10 - abd u/s has been ordered 10/12 - abd u/s did not show any abscess or obstruction of biliary system LFT's are improving again 3) DM this rapidly improved since admission 4) distended bladder 10/10 - pt has kathleen in and still has distending bladder re-scan after kathleen was re-position externally and if still distended may need to adjust placement Consultation Date/Type/Reason Admit Date/Time Sep 23, 2018 at 07:08 Initial Consult Date 09/25/18 Type of Consult ID Requesting Provider: GENARO SEPULVEDA MD Date/Time of Note DATE: 10/13/18 TIME: 06:45 24 HR Interval Summary Free Text/Dictation pt continues to improve no N, V, D has a dry cough Exam/Review of Systems Exam Vitals Vital Signs Date Temp Pulse Resp B/P (MAP) Pulse Ox O2 O2 Flow FiO2 Time Delivery Rate 10/13/18 98.3 75 20 139/63 95 04:00 (88) 10/13/18 2.0 01:52 10/12/18 Nasal 19:43 Cannula 10/10/18 36 02:17 Intake and Output 10/12/18 10/12/18 10/13/18 1515:00 23:00 07:00 IntakeIntake Total 250 ml OutputOutput Total 4000 ml BalanceBalance 250 ml -4000 ml Constitutional: alert, oriented Eyes: nl sclera ENMT: mucosa pink and moist Respiratory: clear to auscultation Cardiovascular: regular rate and rhythm Gastrointestinal: soft, non-tender Results Result Diagram: 10/13/18 0522 10/12/18 0536 Results 24hrs Laboratory Tests Test 10/12/18 07:40 10/12/18 11:50 10/12/18 17:18 10/12/18 20:31 Bedside Glucose 129 179 137 229 H Test 10/13/18 03:16 10/13/18 05:22 Bedside Glucose 154 White Blood Count 6.4 Red Blood Count 3.19 L Hemoglobin 8.7 L Hematocrit 27.0 L Mean Corpuscular 84.6 Volume Mean Corpuscular 27.3 L Hemoglobin Mean Corpuscular 32.2 Hemoglobin Concent Red Cell 13.4 Distribution Width Platelet Count 443 H Mean Platelet Volume 11.3 H Immature 0.600 H Granulocytes % Neutrophils % 61.6 Lymphocytes % 22.8 Monocytes % 11.7 H Eosinophils % 2.5 Basophils % 0.8 Nucleated Red Blood 0.0 Cells % Immature 0.040 H Granulocytes # Neutrophils # 3.9 Lymphocytes # 1.5 Monocytes # 0.7 Eosinophils # 0.2 Basophils # 0.1 Nucleated Red Blood 0.0 Cells # Medications Medication Current Medications Aspirin (Halfprin) 81 mg DAILY PO Last administered on 10/12/18at 08:24; Admin Dose 81 MG; Start 09/24/18 at 09:00 IV Flush (NS 3 ml) 3 ml PER PROTOCOL IV ; Start 09/23/18 at 13:00 Lorazepam (Ativan) 0.5 mg Q8H PRN PO .ANXIETY Last administered on 10/08/18at 22:42; Admin Dose 0.5 MG; Start 09/23/18 at 13:00 Ondansetron HCl (Zofran Inj) 4 mg Q6H PRN IV NAUSEA/VOMITING; Start 09/23/18 at 13:00 Acetaminophen (Tylenol Tab) 650 mg Q6H PRN PO .PAIN 1-3 OR TEMP Last administered on 10/08/18at 22:42; Admin Dose 650 MG; Start 09/23/18 at 13:00 Zolpidem Tartrate (Ambien) 5 mg QHS PRN PO .INSOMNIA; Start 09/23/18 at 13:00 Docusate Sodium (Colace) 100 mg Q12H PRN PO .CONSTIPATION; Start 09/23/18 at 13:00 Magnesium Hydroxide (Milk Of Mag) 30 ml DAILY PRN PO .CONSTIPATION; Start 09/23/18 at 13:00 Miscellaneous Information 1 ea NOTE XX ; Start 09/23/18 at 13:30 Glucose (Glutose) 15 gm Q15M PRN PO DECREASED GLUCOSE; Start 09/23/18 at 13:30 Glucose (Glutose) 22.5 gm Q15M PRN PO DECREASED GLUCOSE; Start 09/23/18 at 13:30 Dextrose (D50w Syringe) 25 ml Q15M PRN IV DECREASED GLUCOSE; Start 09/23/18 at 13:30 Dextrose (D50w Syringe) 50 ml Q15M PRN IV DECREASED GLUCOSE; Start 09/23/18 at 13:30 Glucagon (Glucagen) 1 mg Q15M PRN IM DECREASED GLUCOSE; Start 09/23/18 at 13:30 Glucose (Glutose) 15 gm Q15M PRN BUCCAL DECREASED GLUCOSE; Start 09/23/18 at 13:30 Enoxaparin Sodium (Lovenox) 75 mg Q24H SC Last administered on 10/12/18 13:46; Admin Dose 75 MG; Start 09/26/18 at 13:00; Status Hold Lidocaine (Lidoderm) 1 patch DAILY TD Last administered on 10/12/18 08:26; Admin Dose 1 PATCH; Start 09/26/18 at 12:00 Lorazepam (Ativan) 0.5 mg Q4H PRN IV ANXIETY Last administered on 09/29/18 23:01; Admin Dose 0.5 MG; Start 09/26/18 at 19:30 Metoprolol Tartrate (Lopressor) 50 mg BID PO Last administered on 10/12/18 20:33; Admin Dose 50 MG; Start 09/27/18 at 21:00 Felodipine (Plendil) 2.5 mg DAILY PO Last administered on 10/12/18 08:25; Admin Dose 2.5 MG; Start 09/29/18 at 09:00 Famotidine (Pepcid) 20 mg DAILY PO Last administered on 10/12/18 08:24; Admin Dose 20 MG; Start 09/30/18 at 09:00 Guaifenesin/ Codeine Phosphate (Robitussin Ac Liquid Cup) 5 ml Q4H PRN PO COUGH Last administered on 10/06/18 12:56; Admin Dose 5 ML; Start 10/01/18 at 10:30 Insulin Aspart (Novolog Insulin Pen) NOVOLOG *MODERATE* ALGORITHM WITH MEALS BEDTIME SC Last administered on 10/12/18 21:25; Admin Dose 2 UNIT; Start 10/01/18 at 11:30 Diagnostic Test (Pha) (Accu-Chek) 1 ea 02 XX Last administered on 10/13/18 02:00; Admin Dose 1 EA; Start 10/02/18 at 02:00 Eye Lubricant (Artificial Tears Oph) 2 drop PRN PRN BOTH EYES DRY EYES Last administered on 10/10/18 10:50; Admin Dose 2 DROP; Start 10/01/18 at 18:30 Docusate Sodium (Colace) 100 mg BID PO Last administered on 10/12/18 20:32; Admin Dose 100 MG; Start 10/02/18 at 13:00 Insulin Glargine (Lantus) 15 units DAILY@0800 SC Last administered on 10/12/18 08:30; Admin Dose 15 UNITS; Start 10/06/18 at 08:00 Magnesium Oxide (Mag-Ox 400) 400 mg DAILY PO Last administered on 10/12/18 08:24; Admin Dose 400 MG; Start 10/08/18 at 09:00 Meropenem/Sodium Chloride 50 ml @ 100 mls/hr Q12 IVPB Last administered on 10/12/18 20:32; Admin Dose 100 MLS/HR; Start 10/08/18 at 09:00 Doxycycline Hyclate (Vibramycin) 100 mg BID PO Last administered on 10/12/18 20:32; Admin Dose 100 MG; Start 10/08/18 at 09:00 Bumetanide 2 mg/ Dextrose 25 ml @ 50 mls/hr DAILY IV Last administered on 10/12/18 08:25; Admin Dose 50 MLS/HR; Start 10/11/18 at 09:00; Status Hold HARPREET HALE MD Oct 13, 2018 06:47
[2018-10-13] MEDS ORDERED: LIDOCAINE 1% (MDV) 20 ML INJ ONE (07:03)
[2018-10-13] MEDS ORDERED: HEPARIN 1000 UNITS/ML 10 ML INJ ONE ×2 (07:03→08:45)
[2018-10-13] MEDS ORDERED: IODIXANOL LOCM 100 ML BTL ONE (07:03)
[2018-10-13] MEDS ORDERED: NITROGLYCERIN (IC) 100 MCG/ML INJ ONE (07:04)
[2018-10-13] MEDS ORDERED: FENTAnyl 50 MCG/ML VIAL ONE (07:04)
[2018-10-13] MEDS ORDERED: MIDAZOLAM 1 MG/ML 2 ML INJ ONE (07:04)
[2018-10-13] MEDS ORDERED: VERAPAMIL 5 MG INJ ONE (07:04)
[2018-10-13] MEDS: INSULIN ASPART [NOVOLOG] 3 ML PEN SC SCH ×4 (07:33→20:26)
[2018-10-13] MEDS: INSULIN GLARGINE [LANTus] (100 UNITS/ML) SYG SC SCH (07:33)
[2018-10-13] MEDS ORDERED: CLOPIDOGREL 300 MG TAB ONE (08:35)
[2018-10-13] MEDS ORDERED: ASPIRIN 81 MG TAB ONE (08:37)
[2018-10-13] MEDS ORDERED: ONDANSETRON 4 MG INJ ONE (08:54)
[2018-10-13] MEDS: ASPIRIN (EC) 81 MG TAB PO SCH (09:00)
[2018-10-13] MEDS: MAGNESIUM OXIDE 400 MG TAB PO SCH (09:00)
[2018-10-13] MEDS: METOPROLOL 50 MG TAB PO SCH ×2 (09:00→20:24)
[2018-10-13] MEDS: FAMOTIDINE 20 MG TAB PO SCH (09:00)
[2018-10-13] MEDS ORDERED: FAMOTIDINE 20 MG INJ IV SCH (09:00)
[2018-10-13] MEDS: LIDOCAINE 5% PATCH TD SCH (09:00)
[2018-10-13] MEDS: FELODIPINE (ER) 2.5 MG TAB PO SCH (09:00)
[2018-10-13] MEDS: DOXYCYCLINE 100 MG TAB PO SCH ×2 (09:00→20:23)
[2018-10-13] MEDS: DOCUSATE SODIUM 100 MG CAP PO SCH ×2 (09:00→20:23)
[2018-10-13] MEDS: MEROPENEM 1 GM/50ML(PMX) 50 ML IVPB SCH (09:00)
[2018-10-13] MEDS ORDERED: MAGNESIUM HYDROXIDE 30ML CUP PO SCH (09:00)
[2018-10-13] MEDS ORDERED: SOD CHLORIDE 0.45% 1,000 ML IV SCH (09:45)
--- NOTE | 2018-10-13 09:51 | CONS ---
Assessment/Plan Assessment/Plan Hospital Course (Demo Recall) ASSESSMENT: 1. Multi lobar broncho pneumonia possible ARDS w component of possible acute d iastolic HF 2. Non-ST elevation myocardial infarction s/p PCI with to LCx with HARITHA x 2 3. Hypertension. 4. Type 2 diabetes. 5. Mild to moderate aortic stenosis. 6. Acute diastolic heart failure. 7. Gout. 8. Normocytic anemia. 9. Hyperlipidemia. 10 History of breast cancer. 11. Renal insufficiency. 12. PAF- < 24hr, converted to nsr. PLAN: 1. cont asa 81mg daily 2. plavix started cont 75mg po daily for 12 mo post PCI with HARITHA for NSTEMI 3. hlding statin do to elevated lfts 4. tele without recurrent afib, monitor 5. ok to restart lovenox tomorrow 6. holding diuretic post dye load with slight inc in bun/cr Consultation Date/Type/Reason Admit Date/Time Sep 23, 2018 at 07:08 Initial Consult Date 09/25/18 Type of Consult cardiology Requesting Provider: GENARO SEPULVEDA MD Date/Time of Note DATE: 10/13/18 TIME: 09:47 24 HR Interval Summary Free Text/Dictation doing well, s/p cath today. had PCI to LCx proximal with one stent and mid with one stent. 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 sob improved no current cp tele reviewed nsr Detailed Summary Eyes: no complaints ENT: no complaints Respiratory: shortness of breath Cardiovascular: no complaints Exam/Review of Systems Exam Vitals Vital Signs Date Temp Pulse Resp B/P (MAP) Pulse Ox O2 O2 Flow FiO2 Time Delivery Rate 10/13/18 98.3 75 20 139/63 95 04:00 (88) 10/13/18 2.0 01:52 10/12/18 Nasal 19:43 Cannula 10/10/18 36 02:17 Intake and Output 10/12/18 10/12/18 10/13/18 1515:00 23:00 07:00 IntakeIntake Total 250 ml OutputOutput Total 4000 ml BalanceBalance 250 ml -4000 ml Exam HEENT; no JVD, no HJR, carotids 2 over 4+ without bruits. Chest: coarse Cardiac: S4, S1, S2 with normal physiologic splitting, 2/6 early to mid peaking systolic ejection murmur, no rub click or diastolic murmur noted. Abdominal: Bowel sounds positive, soft nontender, no abdominal bruit noted, no hepatosplenomegaly. Extremities: No cyanosis, clubbing, or edema. Negative Homans sign or palpable cords. Pulses: 2/4 pulses diffusely no bruits noted. Results Result Diagram: 10/13/18 0510/13/18 0522 Results 24hrs Laboratory Tests Test 10/12/18 11:50 10/12/18 17:18 10/12/18 20:31 10/13/18 03:16 Bedside Glucose 179 137 229 H 154 Test 10/13/18 05:22 White Blood Count 6.4 Red Blood Count 3.19 L Hemoglobin 8.7 L Hematocrit 27.0 L Mean Corpuscular 84.6 Volume Mean Corpuscular 27.3 L Hemoglobin Mean Corpuscular 32.2 Hemoglobin Concent Red Cell Distribution 13.4 Width Platelet Count 443 H Mean Platelet Volume 11.3 H Immature Granulocytes 0.600 H % Neutrophils % 61.6 Lymphocytes % 22.8 Monocytes % 11.7 H Eosinophils % 2.5 Basophils % 0.8 Nucleated Red Blood 0.0 Cells % Immature Granulocytes 0.040 H # Neutrophils # 3.9 Lymphocytes # 1.5 Monocytes # 0.7 Eosinophils # 0.2 Basophils # 0.1 Nucleated Red Blood 0.0 Cells # Sodium Level 136 Potassium Level 4.4 Chloride Level 96 L Carbon Dioxide Level 33 H Anion Gap 7 Blood Urea Nitrogen 38 H Creatinine 0.90 Est Glomerular Filtrat Rate mL/min Glucose Level 142 Calcium Level 9.3 Total Bilirubin 0.2 Direct Bilirubin 0.00 Indirect Bilirubin 0.2 Aspartate Amino 57 H Transf (AST/SGOT) Alanine 120 H Aminotransferase (ALT /SGPT) Alkaline Phosphatase 127 H Total Protein 6.4 Albumin 3.2 L Globulin 3.20 Albumin/Globulin 1.00 Ratio Imaging Imaging cxr report reviewed in emr Medications Medication Current Medications Aspirin (Halfprin) 81 mg DAILY PO Last administered on 10/12/18at 08:24; Admin Dose 81 MG; Start 09/24/18 at 09:00 IV Flush (NS 3 ml) 3 ml PER PROTOCOL IV ; Start 09/23/18 at 13:00 Lorazepam (Ativan) 0.5 mg Q8H PRN PO .ANXIETY Last administered on 10/08/18at 22:42; Admin Dose 0.5 MG; Start 09/23/18 at 13:00 Ondansetron HCl (Zofran Inj) 4 mg Q6H PRN IV NAUSEA/VOMITING; Start 09/23/18 at 13:00 Acetaminophen (Tylenol Tab) 650 mg Q6H PRN PO .PAIN 1-3 OR TEMP Last administered on 10/08/18at 22:42; Admin Dose 650 MG; Start 09/23/18 at 13:00 Zolpidem Tartrate (Ambien) 5 mg QHS PRN PO .INSOMNIA; Start 09/23/18 at 13:00 Docusate Sodium (Colace) 100 mg Q12H PRN PO .CONSTIPATION; Start 09/23/18 at 13:00 Magnesium Hydroxide (Milk Of Mag) 30 ml DAILY PRN PO .CONSTIPATION; Start 09/23/18 at 13:00 Miscellaneous Information 1 ea NOTE XX ; Start 09/23/18 at 13:30 Glucose (Glutose) 15 gm Q15M PRN PO DECREASED GLUCOSE; Start 09/23/18 at 13:30 Glucose (Glutose) 22.5 gm Q15M PRN PO DECREASED GLUCOSE; Start 09/23/18 at 13:3 0 Dextrose (D50w Syringe) 25 ml Q15M PRN IV DECREASED GLUCOSE; Start 09/23/18 at 13:30 Dextrose (D50w Syringe) 50 ml Q15M PRN IV DECREASED GLUCOSE; Start 09/23/18 at 13:30 Glucagon (Glucagen) 1 mg Q15M PRN IM DECREASED GLUCOSE; Start 09/23/18 at 13:30 Glucose (Glutose) 15 gm Q15M PRN BUCCAL DECREASED GLUCOSE; Start 09/23/18 at 13:30 Enoxaparin Sodium (Lovenox) 75 mg Q24H SC Last administered on 10/12/18at 13:46; Admin Dose 75 MG; Start 09/26/18 at 13:00; Status Hold Lidocaine (Lidoderm) 1 patch DAILY TD Last administered on 10/12/18at 08:26; Admin Dose 1 PATCH; Start 09/26/18 at 12:00 Lorazepam (Ativan) 0.5 mg Q4H PRN IV ANXIETY Last administered on 09/29/18at 23:01; Admin Dose 0.5 MG; Start 09/26/18 at 19:30 Metoprolol Tartrate (Lopressor) 50 mg BID PO Last administered on 10/12/18 20:33; Admin Dose 50 MG; Start 09/27/18 at 21:00 Felodipine (Plendil) 2.5 mg DAILY PO Last administered on 10/12/18 08:25; Admin Dose 2.5 MG; Start 09/29/18 at 09:00 Famotidine (Pepcid) 20 mg DAILY PO Last administered on 10/12/18 08:24; Admin Dose 20 MG; Start 09/30/18 at 09:00 Guaifenesin/ Codeine Phosphate (Robitussin Ac Liquid Cup) 5 ml Q4H PRN PO COUGH Last administered on 10/06/18 12:56; Admin Dose 5 ML; Start 10/01/18 at 10:30 Insulin Aspart (Novolog Insulin Pen) NOVOLOG *MODERATE* ALGORITHM WITH MEALS BEDTIME SC Last administered on 10/12/18 21:25; Admin Dose 2 UNIT; Start at 11:30 Diagnostic Test (Pha) (Accu-Chek) 1 ea 02 XX Last administered on 10/13/18 02:00; Admin Dose 1 EA; Start 10/02/18 at 02:00 Eye Lubricant (Artificial Tears Oph) 2 drop PRN PRN BOTH EYES DRY EYES Last administered on 10/10/18 10:50; Admin Dose 2 DROP; Start 10/01/18 at 18:30 Docusate Sodium (Colace) 100 mg BID PO Last administered on 10/12/18 20:32; Admin Dose 100 MG; Start 10/02/18 at 13:00 Insulin Glargine (Lantus) 15 units DAILY@0800 SC Last administered on 10/12/18 08:30; Admin Dose 15 UNITS; Start 10/06/18 at 08:00 Magnesium Oxide (Mag-Ox 400) 400 mg DAILY PO Last administered on 10/12/18 08:24; Admin Dose 400 MG; Start 10/08/18 at 09:00 Meropenem/Sodium Chloride 50 ml @ 100 mls/hr Q12 IVPB Last administered on 10/12/18 20:32; Admin Dose 100 MLS/HR; Start 10/08/18 at 09:00 Doxycycline Hyclate (Vibramycin) 100 mg BID PO Last administered on 10/12/18at 20:32; Admin Dose 100 MG; Start 10/08/18 at 09:00 Bumetanide 2 mg/ Dextrose 25 ml @ 50 mls/hr DAILY IV Last administered on 10/12/18at 08:25; Admin Dose 50 MLS/HR; Start 10/11/18 at 09:00; Status Hold YAIMA BARROW Oct 13, 2018 09:51
--- NOTE | 2018-10-13 09:52 | OPPN ---
Date/Time of Note Date/Time of Note DATE: 10/13/18 TIME: 09:51 Operative Report Preoperative Diagnosis NSTEMI, Postoperative Diagnosis CAD Operation/Procedure Performed R radial access C PCI of LCX with HARITHA x2 Surgeon see signature line assistant federal public defender n/a Anesthesia: moderate sedation Estimated blood loss: 50 - 100 ml's Transfusion Required none Specimen none Grafts/Implants none Complications none YAIMA BARROW Oct 13, 2018 09:52
[2018-10-13] MEDS ORDERED: ONDANSETRON 4 MG INJ IV PRN (10:00)
[2018-10-13] MEDS ORDERED: AL HYDROX/MG HYDROX/SIMETH 30 ML CUP PO PRN (10:00)
[2018-10-13] MEDS ORDERED: OXYCODONE/ACETAMINOPHEN (5/325) TAB PO PRN (10:00)
[2018-10-13] MEDS ORDERED: morphine 2 MG INJ IV PRN (10:00)
[2018-10-13] MEDS ORDERED: ACETAMINOPHEN 325 MG TAB PO PRN (10:00)
--- NOTE | 2018-10-13 12:16 | CONS ---
Consult Date/Type/Reason Admit Date/Time Sep 23, 2018 at 07:08 Initial Consult Date 09/25/18 Type of Consult Pulmonary Requesting Provider: GENARO SEPULVEDA MD Date/Time of Note DATE: 10/13/18 TIME: 12:16 Subjective Patient had cardiac cath this morning no events overnight. Objective Vital Signs Date Temp Pulse Resp B/P (MAP) Pulse Ox O2 O2 Flow FiO2 Time Delivery Rate 10/13/18 82 17 117/59 99 Nasal 2.0 10:51 (78) Cannula 10/13/18 98.2 10:01 10/10/18 36 02:17 Intake and Output 10/12/18 10/12/18 10/13/18 1414:59 22:59 06:59 IntakeIntake Total 250 ml OutputOutput Total 4000 ml BalanceBalance 250 ml -4000 ml Exam NECK: Supple. No JVD or lymphadenopathy. CARDIAC EXAM: S1, S2. No added sounds or murmurs. CHEST: Diminished air entry bilaterally with few rales ABDOMEN: Soft, nontender. No guarding or rebound. EXTREMITIES: No cyanosis, clubbing or edema. NEUROLOGIC: Generalized weakness. No focal deficits. Vent Setting Fraction of Inspired Oxygen pe: 36 Results/Medications Result Diagram: 10/13/18 0522 10/13/18 0522 Results 24 hrs Laboratory Tests Test 10/12/18 17:18 10/12/18 20:31 10/13/18 03:16 10/13/18 05:13 Bedside Glucose 137 229 H 154 Procalcitonin 0.09 Test 10/13/18 05:22 10/13/18 10:27 White Blood Count 6.4 Red Blood Count 3.19 L Hemoglobin 8.7 L Hematocrit 27.0 L Mean Corpuscular 84.6 Volume Mean Corpuscular 27.3 L Hemoglobin Mean Corpuscular 32.2 Hemoglobin Concent Red Cell Distribution 13.4 Width Platelet Count 443 H Mean Platelet Volume 11.3 H Immature Granulocytes 0.600 H % Neutrophils % 61.6 Lymphocytes % 22.8 Monocytes % 11.7 H Eosinophils % 2.5 Basophils % 0.8 Nucleated Red Blood 0.0 Cells % Immature Granulocytes 0.040 H # Neutrophils # 3.9 Lymphocytes # 1.5 Monocytes # 0.7 Eosinophils # 0.2 Basophils # 0.1 Nucleated Red Blood 0.0 Cells # Sodium Level 136 Potassium Level 4.4 Chloride Level 96 L Carbon Dioxide Level 33 H Anion Gap 7 Blood Urea Nitrogen 38 H Creatinine 0.90 Est Glomerular Filtrat Rate mL/min Glucose Level 142 Calcium Level 9.3 Total Bilirubin 0.2 Direct Bilirubin 0.00 Indirect Bilirubin 0.2 Aspartate Amino 57 H Transf (AST/SGOT) Alanine 120 H Aminotransferase (ALT/ SGPT) Alkaline Phosphatase 127 H Total Protein 6.4 Albumin 3.2 L Globulin 3.20 Albumin/Globulin Ratio 1.00 Bedside Glucose 134 Medications Current Medications IV Flush (NS 3 ml) 3 ml PER PROTOCOL IV ; Start 09/23/18 at 13:00 Lorazepam (Ativan) 0.5 mg Q8H PRN PO .ANXIETY Last administered on 10/08/18at 22:42; Admin Dose 0.5 MG; Start 09/23/18 at 13:00 Ondansetron HCl (Zofran Inj) 4 mg Q6H PRN IV NAUSEA/VOMITING; Start 09/23/18 at 13:00 Zolpidem Tartrate (Ambien) 5 mg QHS PRN PO .INSOMNIA; Start 09/23/18 at 13:00 Docusate Sodium (Colace) 100 mg Q12H PRN PO .CONSTIPATION; Start 09/23/18 at 13:00 Magnesium Hydroxide (Milk Of Mag) 30 ml DAILY PRN PO .CONSTIPATION; Start 09/23/18 at 13:00 Miscellaneous Information 1 ea NOTE XX ; Start 09/23/18 at 13:30 Glucose (Glutose) 15 gm Q15M PRN PO DECREASED GLUCOSE; Start 09/23/18 at 13:30 Glucose (Glutose) 22.5 gm Q15M PRN PO DECREASED GLUCOSE; Start 09/23/18 at 13:30 Dextrose (D50w Syringe) 25 ml Q15M PRN IV DECREASED GLUCOSE; Start 09/23/18 at 13:30 Dextrose (D50w Syringe) 50 ml Q15M PRN IV DECREASED GLUCOSE; Start 09/23/18 at 13:30 Glucagon (Glucagen) 1 mg Q15M PRN IM DECREASED GLUCOSE; Start 09/23/18 at 13:30 Glucose (Glutose) 15 gm Q15M PRN BUCCAL DECREASED GLUCOSE; Start 09/23/18 at 13:30 Enoxaparin Sodium (Lovenox) 75 mg Q24H SC Last administered on 10/12/18 13:46; Admin Dose 75 MG; Start 09/26/18 at 13:00; Status Hold Lidocaine (Lidoderm) 1 patch DAILY TD Last administered on 10/12/18 08:26; Admin Dose 1 PATCH; Start 09/26/18 at 12:00 Lorazepam (Ativan) 0.5 mg Q4H PRN IV ANXIETY Last administered on 09/29/18 23:01; Admin Dose 0.5 MG; Start 09/26/18 at 19:30 Metoprolol Tartrate (Lopressor) 50 mg BID PO Last administered on 10/12/18 20:33; Admin Dose 50 MG; Start 09/27/18 at 21:00 Felodipine (Plendil) 2.5 mg DAILY PO Last administered on 10/12/18 08:25; Admin Dose 2.5 MG; Start 09/29/18 at 09:00 Famotidine (Pepcid) 20 mg DAILY PO Last administered on 10/12/18 08:24; Admin Dose 20 MG; Start 09/30/18 at 09:00 Guaifenesin/ Codeine Phosphate (Robitussin Ac Liquid Cup) 5 ml Q4H PRN PO COUGH Last administered on 10/06/18 12:56; Admin Dose 5 ML; Start 10/01/18 at 10:30 Insulin Aspart (Novolog Insulin Pen) NOVOLOG *MODERATE* ALGORITHM WITH MEALS BEDTIME SC Last administered on 10/12/18 21:25; Admin Dose 2 UNIT; Start 10/01/18 at 11:30 Diagnostic Test (Pha) (Accu-Chek) 1 ea 02 XX Last administered on 10/13/18 02:00; Admin Dose 1 EA; Start 10/02/18 at 02:00 Eye Lubricant (Artificial Tears Oph) 2 drop PRN PRN BOTH EYES DRY EYES Last administered on 10/10/18 10:50; Admin Dose 2 DROP; Start 10/01/18 at 18:30 Docusate Sodium (Colace) 100 mg BID PO Last administered on 10/12/18 20:32; Admin Dose 100 MG; Start 10/02/18 at 13:00 Insulin Glargine (Lantus) 15 units DAILY@0800 SC Last administered on 10/12/18 08:30; Admin Dose 15 UNITS; Start 10/06/18 at 08:00 Magnesium Oxide (Mag-Ox 400) 400 mg DAILY PO Last administered on 10/12/18at 08:24; Admin Dose 400 MG; Start 10/08/18 at 09:00 Doxycycline Hyclate (Vibramycin) 100 mg BID PO Last administered on 10/12/18at 20:32; Admin Dose 100 MG; Start 10/08/18 at 09:00 Bumetanide 2 mg/ Dextrose 25 ml @ 50 mls/hr DAILY IV Last administered on 10/12/18at 08:25; Admin Dose 50 MLS/HR; Start 10/11/18 at 09:00; Status Hold Aspirin (Halfprin) 81 mg DAILY PO ; Start 10/14/18 at 09:00 Clopidogrel Bisulfate (plaVIX) 75 mg DAILY PO ; Start 10/14/18 at 09:00 Acetaminophen (Tylenol Tab) 650 mg Q4H PRN PO PAIN; Start 10/13/18 at 10:00 Oxycodone/ Acetaminophen (Percocet (5/ 325)) 1 tab Q4H PRN PO PAIN; Start 10/13/18 at 10:00 Morphine Sulfate (morphine) 1 mg Q1H PRN IV PAIN; Start 10/13/18 at 10:00 Al Hydrox/Mg Hydrox/Simethicone (Mag-Al Plus) 30 ml Q4H PRN PO GASTROINTESTINAL UPSET; Start 10/13/18 at 10:00 Ondansetron HCl (Zofran Inj) 4 mg Q4H PRN IV NAUSEA AND/OR VOMITING; Start 10/13/18 at 10:00 Sodium Chloride 1,000 ml @ 75 mls/hr [id number] IV ; Start 10/13/18 at 09:45; Stop 10/13/18 at 14:44 Assessment/Plan Hospital Course (Demo Recall) Assessment 1. Status post acute hypoxemic respiratory failure 2. Congestive cardiac failure 3. Normal procalcitonin level noted. 4. Recent non-ST elevation [place] Plan 1. Continue renal recommendations regarding diuretics 2. No pulmonary embolus not enough effusion for thoracentesis on the ultrasound of right chest. 3. ID recommendations 4. Cardiac recommendations post angiography PATEL GRIFFITH MD, [facility] Oct 13, 2018 12:16
--- NOTE | 2018-10-13 13:53 | PN ---
Date/Time of Note Date/Time of Note DATE: 10/13/18 TIME: 13:46 Assessment/Plan VTE Prophylaxis Risk score (from [facility])>0 risk: 6 SCD applied (from [facility]): No SCD contraindicated: other Pharmacological prophylaxis: other Pharm contraindication: surgical contra, other Lines/Catheters IV C[facility]ter Type (from [facility] Peripheral IV Urinary Cath still in place: Yes Reason Cath still needed: urinary retention Assessment/Plan Hospital Course 1. Congestive heart failure /pneumonia. She is improved clinically. Chest x-ray shows interstitial infiltrates and small bilateral pleural effusions. She did sit in the chair yesterday. 2. Renal failure. Her serum creatinine is normal and stable. 3. Respiratory failure . She is now off high flow oxygen . 4. Status post left heart cath with coronary angiogram, PCI, and stent placement x2. 5. History of hypertension 6. Type 2 diabetes mellitus, blood sugars have been lower. She is now on on a dose of Lantus in addition to the sliding scale Humalog coverage. 7. Iron deficiency anemia. Patient has finished a course of Ferrlicit, IV iron replacement. 8. Atrial fibrillation, she has now converted to sinus rhythm.. 9. She has elevated liver enzymes. I will stop atorvastatin and will order an abdominal ultrasound to check liver. Her liver enzymes are lower today. Result Diagram: 10/13/1852110/13/18 0522 Results 24hrs Laboratory Tests Test 10/12/18 17:18 10/12/18 20:31 10/13/18 03:16 10/13/18 05:13 Bedside Glucose 137 229 H 154 Procalcitonin 0.09 Test 10/13/18 05:22 10/13/18 10:27 White Blood Count 6.4 Red Blood Count 3.19 L Hemoglobin 8.7 L Hematocrit 27.0 L Mean Corpuscular 84.6 Volume Mean Corpuscular 27.3 L Hemoglobin Mean Corpuscular 32.2 Hemoglobin Concent Red Cell Distribution 13.4 Width Platelet Count 443 H Mean Platelet Volume 11.3 H Immature Granulocytes 0.600 H % Neutrophils % 61.6 Lymphocytes % 22.8 Monocytes % 11.7 H Eosinophils % 2.5 Basophils % 0.8 Nucleated Red Blood 0.0 Cells % Immature Granulocytes 0.040 H # Neutrophils # 3.9 Lymphocytes # 1.5 Monocytes # 0.7 Eosinophils # 0.2 Basophils # 0.1 Nucleated Red Blood 0.0 Cells # Sodium Level 136 Potassium Level 4.4 Chloride Level 96 L Carbon Dioxide Level 33 H Anion Gap 7 Blood Urea Nitrogen 38 H Creatinine 0.90 Est Glomerular Filtrat Rate mL/min Glucose Level 142 Calcium Level 9.3 Total Bilirubin 0.2 Direct Bilirubin 0.00 Indirect Bilirubin 0.2 Aspartate Amino 57 H Transf (AST/SGOT) Alanine 120 H Aminotransferase (ALT/ SGPT) Alkaline Phosphatase 127 H Total Protein 6.4 Albumin 3.2 L Globulin 3.20 Albumin/Globulin Ratio 1.00 Bedside Glucose 134 Subjective 24 Hr Interval Summary Free Text/Dictation Mandi is now postop a left heart catheterization with coronary angiogram. She did undergo PCI with 2 stents placed. She is awake and alert. She denies pain. She is sitting up eating lunch. Constitutional: no complaints, improved Respiratory: shortness of breath Cardiovascular: no complaints Gastrointestinal: no complaints Genitourinary: no complaints Musculoskeletal: no complaints Skin: no complaints Exam/Review of Systems Exam Vitals Vital Signs Date Temp Pulse Resp B/P (MAP) Pulse Ox O2 O2 Flow FiO2 Time Delivery Rate 10/13/18 99 4.0 33 12:33 10/13/18 82 17 117/59 Nasal 10:51 (78) Cannula 10/13/18 98.2 10:01 Intake and Output 10/12/18 10/12/18 10/13/18 1515:00 23:00 07:00 IntakeIntake Total 250 ml OutputOutput Total 4000 ml BalanceBalance 250 ml -4000 ml Constitutional: alert, oriented, frail Respiratory: clear to auscultation, normal air movement Cardiovascular: regular rate and rhythm, murmurs/extra sounds Gastrointestinal: soft, non-tender Results Results 24hrs Laboratory Tests Test 10/12/18 17:18 10/12/18 20:31 10/13/18 03:16 10/13/18 05:13 Bedside Glucose 137 229 H 154 Procalcitonin 0.09 Test 10/13/18 05:22 10/13/18 10:27 White Blood Count 6.4 Red Blood Count 3.19 L Hemoglobin 8.7 L Hematocrit 27.0 L Mean Corpuscular 84.6 Volume Mean Corpuscular 27.3 L Hemoglobin Mean Corpuscular 32.2 Hemoglobin Concent Red Cell Distribution 13.4 Width Platelet Count 443 H Mean Platelet Volume 11.3 H Immature Granulocytes 0.600 H % Neutrophils % 61.6 Lymphocytes % 22.8 Monocytes % 11.7 H Eosinophils % 2.5 Basophils % 0.8 Nucleated Red Blood 0.0 Cells % Immature Granulocytes 0.040 H # Neutrophils # 3.9 Lymphocytes # 1.5 Monocytes # 0.7 Eosinophils # 0.2 Basophils # 0.1 Nucleated Red Blood 0.0 Cells # Sodium Level 136 Potassium Level 4.4 Chloride Level 96 L Carbon Dioxide Level 33 H Anion Gap 7 Blood Urea Nitrogen 38 H Creatinine 0.90 Est Glomerular Filtrat Rate mL/min Glucose Level 142 Calcium Level 9.3 Total Bilirubin 0.2 Direct Bilirubin 0.00 Indirect Bilirubin 0.2 Aspartate Amino 57 H Transf (AST/SGOT) Alanine 120 H Aminotransferase (ALT/ SGPT) Alkaline Phosphatase 127 H Total Protein 6.4 Albumin 3.2 L Globulin 3.20 Albumin/Globulin Ratio 1.00 Bedside Glucose 134 Medications Medication Current Medications IV Flush (NS 3 ml) 3 ml PER PROTOCOL IV ; Start 09/23/18 at 13:00 Lorazepam (Ativan) 0.5 mg Q8H PRN PO .ANXIETY Last administered on 10/08/18at 22:42; Admin Dose 0.5 MG; Start 09/23/18 at 13:00 Ondansetron HCl (Zofran Inj) 4 mg Q6H PRN IV NAUSEA/VOMITING; Start 09/23/18 at 13:00 Zolpidem Tartrate (Ambien) 5 mg QHS PRN PO .INSOMNIA; Start 09/23/18 at 13:00 Docusate Sodium (Colace) 100 mg Q12H PRN PO .CONSTIPATION; Start 09/23/18 at 13:00 Magnesium Hydroxide (Milk Of Mag) 30 ml DAILY PRN PO .CONSTIPATION; Start 09/23/18 at 13:00 Miscellaneous Information 1 ea NOTE XX ; Start 09/23/18 at 13:30 Glucose (Glutose) 15 gm Q15M PRN PO DECREASED GLUCOSE; Start 09/23/18 at 13:30 Glucose (Glutose) 22.5 gm Q15M PRN PO DECREASED GLUCOSE; Start 09/23/18 at 13:30 Dextrose (D50w Syringe) 25 ml Q15M PRN IV DECREASED GLUCOSE; Start 09/23/18 at 13:30 Dextrose (D50w Syringe) 50 ml Q15M PRN IV DECREASED GLUCOSE; Start 09/23/18 at 13:30 Glucagon (Glucagen) 1 mg Q15M PRN IM DECREASED GLUCOSE; Start 09/23/18 at 13:30 Glucose (Glutose) 15 gm Q15M PRN BUCCAL DECREASED GLUCOSE; Start 09/23/18 at 13:30 Enoxaparin Sodium (Lovenox) 75 mg Q24H SC Last administered on 10/12/18 13:46; Admin Dose 75 MG; Start 09/26/18 at 13:00; Status Hold Lidocaine (Lidoderm) 1 patch DAILY TD Last administered on 10/12/18 08:26; Admin Dose 1 PATCH; Start 09/26/18 at 12:00 Lorazepam (Ativan) 0.5 mg Q4H PRN IV ANXIETY Last administered on 09/29/18 23:01; Admin Dose 0.5 MG; Start 09/26/18 at 19:30 Metoprolol Tartrate (Lopressor) 50 mg BID PO Last administered on 10/12/18 20:33; Admin Dose 50 MG; Start 09/27/18 at 21:00 Felodipine (Plendil) 2.5 mg DAILY PO Last administered on 10/12/18 08:25; Admin Dose 2.5 MG; Start 09/29/18 at 09:00 Famotidine (Pepcid) 20 mg DAILY PO Last administered on 10/12/18 08:24; Admin Dose 20 MG; Start 09/30/18 at 09:00 Guaifenesin/ Codeine Phosphate (Robitussin Ac Liquid Cup) 5 ml Q4H PRN PO COUGH Last administered on 10/06/18 12:56; Admin Dose 5 ML; Start 10/01/18 at 10:30 Insulin Aspart (Novolog Insulin Pen) NOVOLOG *MODERATE* ALGORITHM WITH MEALS BEDTIME SC Last administered on 10/12/18 21:25; Admin Dose 2 UNIT; Start 10/01/18 at 11:30 Diagnostic Test (Pha) (Accu-Chek) 1 ea 02 XX Last administered on 10/13/18 02:00; Admin Dose 1 EA; Start 10/02/18 at 02:00 Eye Lubricant (Artificial Tears Oph) 2 drop PRN PRN BOTH EYES DRY EYES Last administered on 10/10/18at 10:50; Admin Dose 2 DROP; Start 10/01/18 at 18:30 Docusate Sodium (Colace) 100 mg BID PO Last administered on 10/12/18 20:32; Admin Dose 100 MG; Start 10/02/18 at 13:00 Insulin Glargine (Lantus) 15 units DAILY@0800 SC Last administered on 10/12/18 08:30; Admin Dose 15 UNITS; Start 10/06/18 at 08:00 Magnesium Oxide (Mag-Ox 400) 400 mg DAILY PO Last administered on 10/12/18 08:24; Admin Dose 400 MG; Start 10/08/18 at 09:00 Doxycycline Hyclate (Vibramycin) 100 mg BID PO Last administered on 10/12/18 20:32; Admin Dose 100 MG; Start 10/08/18 at 09:00 Bumetanide 2 mg/ Dextrose 25 ml @ 50 mls/hr DAILY IV Last administered on 10/12/18 08:25; Admin Dose 50 MLS/HR; Start 10/11/18 at 09:00; Status Hold Aspirin (Halfprin) 81 mg DAILY PO ; Start 10/14/18 at 09:00 Clopidogrel Bisulfate (plaVIX) 75 mg DAILY PO ; Start 10/14/18 at 09:00 Acetaminophen (Tylenol Tab) 650 mg Q4H PRN PO PAIN; Start 10/13/18 at 10:00 Oxycodone/ Acetaminophen (Percocet (5/ 325)) 1 tab Q4H PRN PO PAIN; Start 10/13/18 at 10:00 Morphine Sulfate (morphine) 1 mg Q1H PRN IV PAIN; Start 10/13/18 at 10:00 Al Hydrox/Mg Hydrox/Simethicone (Mag-Al Plus) 30 ml Q4H PRN PO GASTROINTESTINAL UPSET; Start 10/13/18 at 10:00 Ondansetron HCl (Zofran Inj) 4 mg Q4H PRN IV NAUSEA AND/OR VOMITING; Start 10/13/18 at 10:00 Sodium Chloride 1,000 ml @ 75 mls/hr [id number] IV Last administered on 10/13/18at 13:00; Admin Dose 75 MLS/HR; Start 10/13/18 at 09:45; Stop 10/13/18 at 14:44 GENARO SEPULVEDA MD Oct 13, 2018 13:53
[2018-10-14] MEDS: ACCUCHECK AT 2AM (Patients on SS coverage) XX SCH (02:00)
[2018-10-14] MEDS: ARTIFICIAL TEARS 15 ML OPH BOTH EYES PRN (02:48)
[2018-10-14 04:00] VITALS: BP 134/64; PULSE 77; RESP 20
[2018-10-14 07:29] VITALS: BP 131/60; PULSE 74; RESP 20
[2018-10-14] MEDS: INSULIN GLARGINE [LANTus] (100 UNITS/ML) SYG SC SCH (07:48)
[2018-10-14] MEDS: INSULIN ASPART [NOVOLOG] 3 ML PEN SC SCH ×4 (08:07→21:00)
--- NOTE | 2018-10-14 08:32 | PN ---
Date/Time of Note Date/Time of Note DATE: 10/14/18 TIME: 08:25 Assessment/Plan VTE Prophylaxis Risk score (from [facility])>0 risk: 7 SCD applied (from [facility] [place] Yes SCD contraindicated: other Pharmacological prophylaxis: other Pharm contraindication: other Lines/Catheters IV Catheter Type (from [facility] [place] Urinary Cath still in place: Yes Reason Cath still needed: urinary retention Assessment/Plan Hospital Course 1. Congestive heart failure /pneumonia. She is improved clinically. I ordered a chest x-ray for today. 2. Renal failure. Her serum creatinine is normal and stable. I am going to discontinue the Martin catheter. 3. Respiratory failure . She is now off high flow oxygen . 4. Status post left heart cath with coronary angiogram, PCI, and stent placement x2. 5. History of hypertension 6. Type 2 diabetes mellitus, blood sugars have been lower. She is now on on a dose of Lantus in addition to the sliding scale Humalog coverage. 7. Iron deficiency anemia. Patient has finished a course of Ferrlicit, IV iron replacement. 8. Atrial fibrillation, she has now converted to sinus rhythm.. 9. She has elevated liver enzymes. I will stop atorvastatin and will order an abdominal ultrasound to check liver. Her liver enzymes are lower today. 10. I want her to get up and participate with physical therapy. I put in a referral for her to go to the acute rehab unit. I told this to her and to her niece. Result Diagram: 10/13/18 0522 10/13/18 0522 Results 24hrs Laboratory Tests Test 10/13/18 10:27 10/13/18 17:24 10/13/18 20:21 10/14/18 02:29 Bedside Glucose 134 140 230 H 185 Test 10/14/18 07:38 Bedside Glucose 167 Subjective 24 Hr Interval Summary Free Text/Dictation Mandi is awake and alert. She has no new complaints. She is now 1 day postop a coronary angiogram with stent placement x2. Constitutional: no complaints, improved Respiratory: no complaints Cardiovascular: no complaints Gastrointestinal: no complaints Genitourinary: no complaints Musculoskeletal: bone/joint pain Exam/Review of Systems Exam Vitals Vital Signs Date Temp Pulse Resp B/P (MAP) Pulse Ox O2 O2 Flow FiO2 Time Delivery Rate 10/14/18 Nasal 3.0 07:55 Cannula 10/14/18 98.4 74 20 131/60 95 07:29 (83) 10/13/18 33 12:33 Intake and Output 10/13/18 10/13/18 10/14/18 1515:00 23:00 07:00 IntakeIntake Total 440 ml 500 ml OutputOutput Total 950 ml 750 ml BalanceBalance -510 ml -250 ml Constitutional: alert, oriented, frail Respiratory: diminished breath sounds Cardiovascular: regular rate and rhythm, systolic murmur Gastrointestinal: soft, non-tender Musculoskeletal: nl extremities to inspection Results Results 24hrs Laboratory Tests Test 10/13/18 10:27 10/13/18 17:24 10/13/18 20:21 10/14/18 02:29 Bedside Glucose 134 140 230 H 185 Test 10/14/18 07:38 Bedside Glucose 167 Medications Medication Current Medications IV Flush (NS 3 ml) 3 ml PER PROTOCOL IV ; Start 09/23/18 at 13:00 Lorazepam (Ativan) 0.5 mg Q8H PRN PO .ANXIETY Last administered on 10/08/18at 22:42; Admin Dose 0.5 MG; Start 09/23/18 at 13:00 Ondansetron HCl (Zofran Inj) 4 mg Q6H PRN IV NAUSEA/VOMITING; Start 09/23/18 at 13:00 Zolpidem Tartrate (Ambien) 5 mg QHS PRN PO .INSOMNIA; Start 09/23/18 at 13:00 Docusate Sodium (Colace) 100 mg Q12H PRN PO .CONSTIPATION; Start 09/23/18 at 13:00 Magnesium Hydroxide (Milk Of Mag) 30 ml DAILY PRN PO .CONSTIPATION; Start 09/23/18 at 13:00 Miscellaneous Information 1 ea NOTE XX ; Start 09/23/18 at 13:30 Glucose (Glutose) 15 gm Q15M PRN PO DECREASED GLUCOSE; Start 09/23/18 at 13:30 Glucose (Glutose) 22.5 gm Q15M PRN PO DECREASED GLUCOSE; Start 09/23/18 at 13:30 Dextrose (D50w Syringe) 25 ml Q15M PRN IV DECREASED GLUCOSE; Start 09/23/18 at 13:30 Dextrose (D50w Syringe) 50 ml Q15M PRN IV DECREASED GLUCOSE; Start 09/23/18 at 13:30 Glucagon (Glucagen) 1 mg Q15M PRN IM DECREASED GLUCOSE; Start 09/23/18 at 13:30 Glucose (Glutose) 15 gm Q15M PRN BUCCAL DECREASED GLUCOSE; Start 09/23/18 at 13:30 Enoxaparin Sodium (Lovenox) 75 mg Q24H SC Last administered on 10/12/18 13:46; Admin Dose 75 MG; Start 09/26/18 at 13:00; Status Hold Lidocaine (Lidoderm) 1 patch DAILY TD Last administered on 10/12/18 08:26; Admin Dose 1 PATCH; Start 09/26/18 at 12:00 Lorazepam (Ativan) 0.5 mg Q4H PRN IV ANXIETY Last administered on 09/29/18 23:01; Admin Dose 0.5 MG; Start 09/26/18 at 19:30 Metoprolol Tartrate (Lopressor) 50 mg BID PO Last administered on 10/13/18 20:24; Admin Dose 50 MG; Start 09/27/18 at 21:00 Felodipine (Plendil) 2.5 mg DAILY PO Last administered on 10/12/18 08:25; Admin Dose 2.5 MG; Start 09/29/18 at 09:00 Famotidine (Pepcid) 20 mg DAILY PO Last administered on 10/12/18 08:24; Admin Dose 20 MG; Start 09/30/18 at 09:00 Guaifenesin/ Codeine Phosphate (Robitussin Ac Liquid Cup) 5 ml Q4H PRN PO COUGH Last administered on 10/06/18 12:56; Admin Dose 5 ML; Start 10/01/18 at 10:30 Insulin Aspart (Novolog Insulin Pen) NOVOLOG *MODERATE* ALGORITHM WITH MEALS BEDTIME SC Last administered on 10/14/18 08:07; Admin Dose 2 UNIT; Start 10/01/18 at 11:30 Diagnostic Test (Pha) (Accu-Chek) 1 ea 02 XX Last administered on 10/13/18 02:00; Admin Dose 1 EA; Start 10/02/18 at 02:00 Eye Lubricant (Artificial Tears Oph) 2 drop PRN PRN BOTH EYES DRY EYES Last administered on 10/14/18 02:48; Admin Dose 2 DROP; Start 10/01/18 at 18:30 Docusate Sodium (Colace) 100 mg BID PO Last administered on 10/13/18at 20:23; Admin Dose 100 MG; Start 10/02/18 at 13:00 Insulin Glargine (Lantus) 15 units DAILY@0800 SC Last administered on 10/14/18at 07:48; Admin Dose 15 UNITS; Start 10/06/18 at 08:00 Magnesium Oxide (Mag-Ox 400) 400 mg DAILY PO Last administered on 10/12/18at 08:24; Admin Dose 400 MG; Start 10/08/18 at 09:00 Doxycycline Hyclate (Vibramycin) 100 mg BID PO Last administered on 10/13/18at 20:23; Admin Dose 100 MG; Start 10/08/18 at 09:00 Bumetanide 2 mg/ Dextrose 25 ml @ 50 mls/hr DAILY IV Last administered on 10/12/18at 08:25; Admin Dose 50 MLS/HR; Start 10/11/18 at 09:00; Status Hold Aspirin (Halfprin) 81 mg DAILY PO ; Start 10/14/18 at 09:00 Clopidogrel Bisulfate (plaVIX) 75 mg DAILY PO ; Start 10/14/18 at 09:00 Acetaminophen (Tylenol Tab) 650 mg Q4H PRN PO PAIN; Start 10/13/18 at 10:00 Oxycodone/ Acetaminophen (Percocet (5/ 325)) 1 tab Q4H PRN PO PAIN; Start 10/13/18 at 10:00 Morphine Sulfate (morphine) 1 mg Q1H PRN IV PAIN; Start 10/13/18 at 10:00 Al Hydrox/Mg Hydrox/Simethicone (Mag-Al Plus) 30 ml Q4H PRN PO GASTROINTESTINAL UPSET; Start 10/13/18 at 10:00 Ondansetron HCl (Zofran Inj) 4 mg Q4H PRN IV NAUSEA AND/OR VOMITING; Start 10/13/18 at 10:00 GENARO SEPULVEDA MD Oct 14, 2018 08:32
[2018-10-14] MEDS: METOPROLOL 50 MG TAB PO SCH ×2 (09:00→21:45)
[2018-10-14] MEDS: ASPIRIN (EC) 81 MG TAB PO SCH (09:24)
[2018-10-14] MEDS: DOXYCYCLINE 100 MG TAB PO SCH ×2 (09:24→21:44)
[2018-10-14] MEDS: DOCUSATE SODIUM 100 MG CAP PO SCH ×2 (09:25→21:44)
[2018-10-14] MEDS: FAMOTIDINE 20 MG TAB PO SCH (09:25)
[2018-10-14] MEDS: CLOPIDOGREL 75 MG TAB PO SCH (09:25)
[2018-10-14] MEDS: MAGNESIUM OXIDE 400 MG TAB PO SCH (09:25)
[2018-10-14] MEDS: FELODIPINE (ER) 2.5 MG TAB PO SCH (09:25)
[2018-10-14] MEDS: LIDOCAINE 5% PATCH TD SCH (09:31)
--- NOTE | 2018-10-14 09:39 | CONS ---
Assessment/Plan Assessment/Plan Hospital Course (Demo Recall) ASSESSMENT: 1. Multi lobar broncho pneumonia possible ARDS w component of possible acute d iastolic HF 2. Non-ST elevation myocardial infarction s/p PCI with to LCx with HARITHA x 2 3. Hypertension. 4. Type 2 diabetes. 5. Mild to moderate aortic stenosis. 6. Acute diastolic heart failure. 7. Gout. 8. Normocytic anemia. 9. Hyperlipidemia. 10 History of breast cancer. 11. Renal insufficiency. 12. PAF- < 24hr, converted to nsr. PLAN: 1. cont asa 81mg daily 2. plavix started cont 75mg po daily for 12 mo post PCI with HARITHA for NSTEMI 3. hlding statin do to elevated lfts 4. tele without recurrent afib, monitor 5. ok to restart lovenox for DVT prophy 6. recheck cr if stable can resume diuresis 7. ok to transfer to acute rehab when accepted d/w Dr. Plata Consultation Date/Type/Reason Admit Date/Time Sep 23, 2018 at 07:08 Initial Consult Date 09/25/18 Type of Consult cardiology Requesting Provider: GENARO SEPULVEDA MD Date/Time of Note DATE: 10/14/18 TIME: 09:36 24 HR Interval Summary Free Text/Dictation no acute events. denies chest pain mild bruising pain at cath site. breathing stable on O2 via NC. pt has R shoulder pain with movement for a few days, no change. tele reviewed NSR no events Detailed Summary Eyes: no complaints ENT: no complaints Respiratory: shortness of breath Cardiovascular: no complaints Exam/Review of Systems Exam Vitals Vital Signs Date Temp Pulse Resp B/P (MAP) Pulse Ox O2 O2 Flow FiO2 Time Delivery Rate 10/14/18 Nasal 3.0 07:55 Cannula 10/14/18 98.4 74 20 131/60 95 07:29 (83) 10/13/18 33 12:33 Intake and Output 10/13/18 10/13/18 10/14/18 1515:00 23:00 07:00 IntakeIntake Total 440 ml 500 ml OutputOutput Total 950 ml 750 ml BalanceBalance -510 ml -250 ml Exam HEENT; no JVD, no HJR, carotids 2 over 4+ without bruits. Chest:improved clear anterior and superior post Cardiac: S4, S1, S2 with normal physiologic splitting, 2/6 early to mid peaking systolic ejection murmur, no rub click or diastolic murmur noted. Abdominal: Bowel sounds positive, soft nontender, no abdominal bruit noted, no hepatosplenomegaly. Extremities: No cyanosis, clubbing, or edema. Negative Homans sign or palpable cords. Pulses: 2/4 pulses diffusely no bruits noted. R wrist 2+ Radial, mild bruising no ttp Results Result Diagram: 10/13/1852110/13/18521 Results 24hrs Laboratory Tests Test 10/13/18 10:27 10/13/18 17:24 10/13/18 20:21 10/14/18 02:29 Bedside Glucose 134 140 230 H 185 Test 10/14/18 07:38 Bedside Glucose 167 Imaging Imaging cxr report reviewed in emr Medications Medication Current Medications IV Flush (NS 3 ml) 3 ml PER PROTOCOL IV ; Start 09/23/18 at 13:00 Lorazepam (Ativan) 0.5 mg Q8H PRN PO .ANXIETY Last administered on 10/08/18at 22:42; Admin Dose 0.5 MG; Start 09/23/18 at 13:00 Ondansetron HCl (Zofran Inj) 4 mg Q6H PRN IV NAUSEA/VOMITING; Start 09/23/18 at 13:00 Zolpidem Tartrate (Ambien) 5 mg QHS PRN PO .INSOMNIA; Start 09/23/18 at 13:00 Docusate Sodium (Colace) 100 mg Q12H PRN PO .CONSTIPATION; Start 09/23/18 at 13:00 Magnesium Hydroxide (Milk Of Mag) 30 ml DAILY PRN PO .CONSTIPATION; Start 09/23/18 at 13:00 Miscellaneous Information 1 ea NOTE XX ; Start 09/23/18 at 13:30 Glucose (Glutose) 15 gm Q15M PRN PO DECREASED GLUCOSE; Start 09/23/18 at 13:30 Glucose (Glutose) 22.5 gm Q15M PRN PO DECREASED GLUCOSE; Start 09/23/18 at 13:30 Dextrose (D50w Syringe) 25 ml Q15M PRN IV DECREASED GLUCOSE; Start 09/23/18 at 13:30 Dextrose (D50w Syringe) 50 ml Q15M PRN IV DECREASED GLUCOSE; Start 09/23/18 at 13:30 Glucagon (Glucagen) 1 mg Q15M PRN IM DECREASED GLUCOSE; Start 09/23/18 at 13:30 Glucose (Glutose) 15 gm Q15M PRN BUCCAL DECREASED GLUCOSE; Start 09/23/18 at 13:30 Enoxaparin Sodium (Lovenox) 75 mg Q24H SC Last administered on 10/12/18 13:46; Admin Dose 75 MG; Start 09/26/18 at 13:00; Status Hold Lidocaine (Lidoderm) 1 patch DAILY TD Last administered on 10/14/18 09:31; Admin Dose 1 PATCH; Start 09/26/18 at 12:00 Lorazepam (Ativan) 0.5 mg Q4H PRN IV ANXIETY Last administered on 09/29/18 23:01; Admin Dose 0.5 MG; Start 09/26/18 at 19:30 Metoprolol Tartrate (Lopressor) 50 mg BID PO Last administered on 10/13/18 20:24; Admin Dose 50 MG; Start 09/27/18 at 21:00 Felodipine (Plendil) 2.5 mg DAILY PO Last administered on 10/14/18 09:25; Admin Dose 2.5 MG; Start 09/29/18 at 09:00 Famotidine (Pepcid) 20 mg DAILY PO Last administered on 10/14/18 09:25; Admin Dose 20 MG; Start 09/30/18 at 09:00 Guaifenesin/ Codeine Phosphate (Robitussin Ac Liquid Cup) 5 ml Q4H PRN PO COUGH Last administered on 10/06/18 12:56; Admin Dose 5 ML; Start 10/01/18 at 10:30 Insulin Aspart (Novolog Insulin Pen) NOVOLOG *MODERATE* ALGORITHM WITH MEALS BEDTIME SC Last administered on 10/14/18 08:07; Admin Dose 2 UNIT; Start 10/01/18 at 11:30 Diagnostic Test (Pha) (Accu-Chek) 1 ea 02 XX Last administered on 10/13/18 02:00; Admin Dose 1 EA; Start 10/02/18 at 02:00 Eye Lubricant (Artificial Tears Oph) 2 drop PRN PRN BOTH EYES DRY EYES Last administered on 10/14/18 02:48; Admin Dose 2 DROP; Start 10/01/18 at 18:30 Docusate Sodium (Colace) 100 mg BID PO Last administered on 10/14/18 09:25; Admin Dose 100 MG; Start 10/02/18 at 13:00 Insulin Glargine (Lantus) 15 units DAILY@0800 SC Last administered on 10/14/18 07:48; Admin Dose 15 UNITS; Start 10/06/18 at 08:00 Magnesium Oxide (Mag-Ox 400) 400 mg DAILY PO Last administered on 10/14/18 09:25; Admin Dose 400 MG; Start 10/08/18 at 09:00 Doxycycline Hyclate (Vibramycin) 100 mg BID PO Last administered on 10/14/18 09:24; Admin Dose 100 MG; Start 10/08/18 at 09:00 Bumetanide 2 mg/ Dextrose 25 ml @ 50 mls/hr DAILY IV Last administered on 10/12/18 08:25; Admin Dose 50 MLS/HR; Start 10/11/18 at 09:00; Status Hold Aspirin (Halfprin) 81 mg DAILY PO Last administered on 10/14/18 09:24; Admin Dose 81 MG; Start 10/14/18 at 09:00 Clopidogrel Bisulfate (plaVIX) 75 mg DAILY PO Last administered on 10/14/18 09:25; Admin Dose 75 MG; Start 10/14/18 at 09:00 Acetaminophen (Tylenol Tab) 650 mg Q4H PRN PO PAIN; Start 10/13/18 at 10:00 Oxycodone/ Acetaminophen (Percocet (5/ 325)) 1 tab Q4H PRN PO PAIN; Start 10/13/18 at 10:00 Morphine Sulfate (morphine) 1 mg Q1H PRN IV PAIN; Start 10/13/18 at 10:00 Al Hydrox/Mg Hydrox/Simethicone (Mag-Al Plus) 30 ml Q4H PRN PO GASTROINTESTINAL UPSET; Start 10/13/18 at 10:00 Ondansetron HCl (Zofran Inj) 4 mg Q4H PRN IV NAUSEA AND/OR VOMITING; Start 10/13/18 at 10:00 YAIMA BARROW Oct 14, 2018 09:39
[2018-10-14 11:37] VITALS: BP 135/63; PULSE 90; RESP 20
--- NOTE | 2018-10-14 12:13 | CONS ---
Consult Date/Type/Reason Admit Date/Time Sep 23, 2018 at 07:08 Initial Consult Date 09/25/18 Type of Consult Pulmonary Requesting Provider: GENARO SEPULVEDA MD Date/Time of Note DATE: 10/14/18 TIME: 12:12 Subjective Patient comfortable this morning. No new events. Martin catheter to be removed. Status post PCI with drug-eluting stents x2 placed to left circumflex. Objective Vital Signs Date Temp Pulse Resp B/P (MAP) Pulse Ox O2 O2 Flow FiO2 Time Delivery Rate 10/14/18 98.7 90 20 135/63 93 Nasal 11:37 (87) Cannula 10/14/18 3.0 07:55 10/13/18 33 12:33 Intake and Output 10/13/18 10/13/18 10/14/18 1515:00 23:00 07:00 IntakeIntake Total 440 ml 500 ml OutputOutput Total 950 ml 750 ml BalanceBalance -510 ml -250 ml Exam NECK: Supple. No JVD or lymphadenopathy. CARDIAC EXAM: S1, S2. No added sounds or murmurs. CHEST: Diminished air entry bilaterally with few rales ABDOMEN: Soft, nontender. No guarding or rebound. EXTREMITIES: No cyanosis, clubbing or edema. NEUROLOGIC: Generalized weakness. No focal deficits Vent Setting Fraction of Inspired Oxygen pe: 33 Results/Medications Result Diagram: 10/13/18 0522 10/13/18 0522 Results 24 hrs Laboratory Tests Test 10/13/18 17:24 10/13/18 20:21 10/14/18 02:29 10/14/18 07:38 Bedside Glucose 140 230 H 185 167 Medications Current Medications IV Flush (NS 3 ml) 3 ml PER PROTOCOL IV ; Start 09/23/18 at 13:00 Lorazepam (Ativan) 0.5 mg Q8H PRN PO .ANXIETY Last administered on 10/08/18at 22:42; Admin Dose 0.5 MG; Start 09/23/18 at 13:00 Ondansetron HCl (Zofran Inj) 4 mg Q6H PRN IV NAUSEA/VOMITING; Start 09/23/18 at 13:00 Zolpidem Tartrate (Ambien) 5 mg QHS PRN PO .INSOMNIA; Start 09/23/18 at 13:00 Docusate Sodium (Colace) 100 mg Q12H PRN PO .CONSTIPATION; Start 09/23/18 at 13:00 Magnesium Hydroxide (Milk Of Mag) 30 ml DAILY PRN PO .CONSTIPATION; Start 09/23/18 at 13:00 Miscellaneous Information 1 ea NOTE XX ; Start 09/23/18 at 13:30 Glucose (Glutose) 15 gm Q15M PRN PO DECREASED GLUCOSE; Start 09/23/18 at 13:30 Glucose (Glutose) 22.5 gm Q15M PRN PO DECREASED GLUCOSE; Start 09/23/18 at 13:30 Dextrose (D50w Syringe) 25 ml Q15M PRN IV DECREASED GLUCOSE; Start 09/23/18 at 13:30 Dextrose (D50w Syringe) 50 ml Q15M PRN IV DECREASED GLUCOSE; Start 09/23/18 at 13:30 Glucagon (Glucagen) 1 mg Q15M PRN IM DECREASED GLUCOSE; Start 09/23/18 at 13:30 Glucose (Glutose) 15 gm Q15M PRN BUCCAL DECREASED GLUCOSE; Start 09/23/18 at 13:30 Enoxaparin Sodium (Lovenox) 75 mg Q24H SC Last administered on 10/12/18at 13:46; Admin Dose 75 MG; Start 09/26/18 at 13:00; Status Hold Lidocaine (Lidoderm) 1 patch DAILY TD Last administered on 10/14/18at 09:31; Admin Dose 1 PATCH; Start 09/26/18 at 12:00 Lorazepam (Ativan) 0.5 mg Q4H PRN IV ANXIETY Last administered on 09/29/18at 23:01; Admin Dose 0.5 MG; Start 09/26/18 at 19:30 Metoprolol Tartrate (Lopressor) 50 mg BID PO Last administered on 10/13/18at 20:24; Admin Dose 50 MG; Start 09/27/18 at 21:00 Felodipine (Plendil) 2.5 mg DAILY PO Last administered on 10/14/18 09:25; Admin Dose 2.5 MG; Start 09/29/18 at 09:00 Famotidine (Pepcid) 20 mg DAILY PO Last administered on 10/14/18 09:25; Admin D ose 20 MG; Start 09/30/18 at 09:00 Guaifenesin/ Codeine Phosphate (Robitussin Ac Liquid Cup) 5 ml Q4H PRN PO COUGH Last administered on 10/06/18 12:56; Admin Dose 5 ML; Start 10/01/18 at 10:30 Insulin Aspart (Novolog Insulin Pen) NOVOLOG *MODERATE* ALGORITHM WITH MEALS BEDTIME SC Last administered on 10/14/18 08:07; Admin Dose 2 UNIT; Start 10/01/18 at 11:30 Diagnostic Test (Pha) (Accu-Chek) 1 ea 02 XX Last administered on 10/13/18 02:00; Admin Dose 1 EA; Start 10/02/18 at 02:00 Eye Lubricant (Artificial Tears Oph) 2 drop PRN PRN BOTH EYES DRY EYES Last administered on 10/14/18 02:48; Admin Dose 2 DROP; Start 10/01/18 at 18:30 Docusate Sodium (Colace) 100 mg BID PO Last administered on 10/14/18 09:25; Admin Dose 100 MG; Start 10/02/18 at 13:00 Insulin Glargine (Lantus) 15 units DAILY@0800 SC Last administered on 10/14/18 07:48; Admin Dose 15 UNITS; Start 10/06/18 at 08:00 Magnesium Oxide (Mag-Ox 400) 400 mg DAILY PO Last administered on 10/14/18 09:25; Admin Dose 400 MG; Start 10/08/18 at 09:00 Doxycycline Hyclate (Vibramycin) 100 mg BID PO Last administered on 10/14/18 09:24; Admin Dose 100 MG; Start 10/08/18 at 09:00 Bumetanide 2 mg/ Dextrose 25 ml @ 50 mls/hr DAILY IV Last administered on 10/12/18 08:25; Admin Dose 50 MLS/HR; Start 10/11/18 at 09:00; Status Hold Aspirin (Halfprin) 81 mg DAILY PO Last administered on 10/14/18 09:24; Admin Dose 81 MG; Start 10/14/18 at 09:00 Clopidogrel Bisulfate (plaVIX) 75 mg DAILY PO Last administered on 10/14/18 09:25; Admin Dose 75 MG; Start 10/14/18 at 09:00 Acetaminophen (Tylenol Tab) 650 mg Q4H PRN PO PAIN; Start 10/13/18 at 10:00 Oxycodone/ Acetaminophen (Percocet (5/ 325)) 1 tab Q4H PRN PO PAIN; Start 10/13/18 at 10:00 Morphine Sulfate (morphine) 1 mg Q1H PRN IV PAIN; Start 10/13/18 at 10:00 Al Hydrox/Mg Hydrox/Simethicone (Mag-Al Plus) 30 ml Q4H PRN PO GASTROINTESTINAL UPSET; Start 10/13/18 at 10:00 Ondansetron HCl (Zofran Inj) 4 mg Q4H PRN IV NAUSEA AND/OR VOMITING; Start 10/13/18 at 10:00 Assessment/Plan Hospital Course (Demo Recall) Assessment 1. Status post acute hypoxemic respiratory failure 2. Congestive cardiac failure status post PCI with stent placement x2. 3. Normal procalcitonin level noted. 4. Recent non-ST elevation NE Plan 1. Agree with DC Martin catheter 2. Decrease FiO2 as tolerated 3. Cardiac recommendations post angiography and stent placement Discharge planning or acute rehab okay from pulmonary standpoint PATEL GRIFFITH MD, [facility] Oct 14, 2018 12:13
[2018-10-14 15:42] VITALS: BP 147/78; PULSE 64; RESP 20
[2018-10-14] MEDS ORDERED: ZOLPIDEM 5 MG TAB PO PRN (16:30)
[2018-10-14 20:00] VITALS: BP 154/64; PULSE 99; RESP 20
[2018-10-14 23:55] VITALS: BP 121/60; PULSE 73; RESP 20
[2018-10-15] MEDS: ACCUCHECK AT 2AM (Patients on SS coverage) XX SCH (02:00)
[2018-10-15 03:47] VITALS: BP 135/63; PULSE 75; RESP 20
--- NOTE | 2018-10-15 06:41 | CONS ---
Assessment/Plan Assessment/Plan Hospital Course (Demo Recall) 1) CHF, r/o pneumonia on levo/aztreanom since 09/24 check procalcitonin and if <0.25 to d/c aztreanom pt did not have some coryza before her CP and SOB so a viral etiology is possible, will order viral pcr of nares no sputum production so no cx possible but nasal for MRSA was neg of noted WBC normalized prior to start of antibiotics pt is anxious to get off biPAP so that she can drink fluids 09/26 - procalcitonin was elevated, c/w with a bacterial lung process continue with levo/aztreanom at present pt starting to bring up phlegm will order resp culture to repeat procalcitonin 09/27 - vanco was added by pulmonary yesterday, not clear for the reason (decreasing procalcitonin and normal WBC, no fever and neg MRSA screen) currently on levo/aztreanom/vanco CXR this a.m. shows more pulmonary edema and BNP is higher I will order swallow eval for patient sputum cx is normal respiratory radha to date I will sign off on case, pulmonary is managing the antibiotics 10/02 - asked to see pt again slow improvement with CXR and clinically procalcitonin is neg now, to repeat in a.m. d/c vanco/aztreanom and continue with levaquin but change to daily dosing at 250mg check BNP in a.m. too start stool softener (no stools since admission but just started to eat yesterday) 10/03 - continue with levaquin alone but change to po form pt is eating and had a solid stool await a.m. labs 10/06 - stable on oral levaquin, continue thru 10/07 (two week course) procalcitonin remains negative viral PCR was neg 10/08 - CXR and CT confirms new infiltrates to RUL check procalcitonin and start merrem/doxy check ESR and MIGUEL 10/09 - continue with merrem/doxy repeat CXR to see if thorancentesis is still needed ESR is pending 10/10 - ESR is extremely high, MIGUEL is pending will add ANCA CXR is improved continue merrem/doxy thru 7/10/12 - MIGUEL was neg, pt using less O2 (now on 3L) on merrem/doxy for a few more days 10/13 - repeat procalcitonin and if still neg to d/c merrem and continue just oral doxy for a few days pt to get angio this a.m. 10/15 - CXR continues to improve ANCA was negative also d/c doxycycline and observe off antibiotics 2) increase in LFT's this is much improved, likely it represented liver congestion due to heart failure 10/10 - abd u/s has been ordered 10/12 - abd u/s did not show any abscess or obstruction of biliary system LFT's are improving again 10/15 - almost completely resolved 3) DM this rapidly improved since admission 4) distended bladder 10/10 - pt has kathleen in and still has distending bladder re-scan after kathleen was re-position externally and if still distended may need to adjust placement Consultation Date/Type/Reason Admit Date/Time Sep 23, 2018 at 07:08 Initial Consult Date 09/25/18 Type of Consult ID Requesting Provider: GENARO SEPULVEDA MD Date/Time of Note DATE: 10/15/18 TIME: 06:39 24 HR Interval Summary Free Text/Dictation pt got cardiac stents placed no CP no N, V, D has occasional cough mostly dry Exam/Review of Systems Exam Vitals Vital Signs Date Temp Pulse Resp B/P (MAP) Pulse Ox O2 O2 Flow FiO2 Time Delivery Rate 10/15/18 98.2 75 20 135/63 94 Nasal 2.0 03:47 (87) Cannula 10/13/18 33 12:33 Intake and Output 10/14/18 10/14/18 10/15/18 1515:00 23:00 07:00 IntakeIntake Total 360 ml 300 ml OutputOutput Total 400 ml 500 ml BalanceBalance 360 ml -400 ml -200 ml Constitutional: alert, oriented Eyes: nl sclera ENMT: mucosa pink and moist Respiratory: other (bibasilar crackles) Cardiovascular: regular rate and rhythm Gastrointestinal: soft, non-tender Results Result Diagram: 10/15/18 0444 10/15/18 0444 Results 24hrs Laboratory Tests Test 10/14/18 07:38 10/14/18 12:13 10/14/18 13:45 10/14/18 17:14 Bedside Glucose 167 183 123 Urine Color YELLOW Urine Clarity CLOUDY A Urine pH 5.0 Urine Specific Jarratt 1.020 Urine Ketones NEGATIVE Urine Nitrite NEGATIVE Urine Bilirubin NEGATIVE Urine Urobilinogen NEGATIVE Urine Leukocyte Esterase 2+ H Urine Microscopic RBC 14 H Urine Microscopic WBC 102 H Urine Bacteria FEW A Urine Yeast (Budding) FEW A Urine Hemoglobin 1+ H Urine Glucose NEGATIVE Urine Total Protein 1+ H Test 10/14/18 21:46 10/15/18 04:44 Bedside Glucose 168 White Blood Count 6.8 Red Blood Count 2.87 L Hemoglobin 7.9 L Hematocrit 24.6 L Mean Corpuscular Volume 85.7 Mean Corpuscular 27.5 L Hemoglobin Mean Corpuscular 32.1 Hemoglobin Concent Red Cell Distribution 13.6 Width Platelet Count 358 Mean Platelet Volume 11.1 H Immature Granulocytes % 0.600 H Neutrophils % 70.3 Lymphocytes % 17.3 Monocytes % 8.8 Eosinophils % 2.6 Basophils % 0.4 Nucleated Red Blood 0.0 Cells % Immature Granulocytes # 0.040 H Neutrophils # 4.8 Lymphocytes # 1.2 Monocytes # 0.6 Eosinophils # 0.2 Basophils # 0.0 Nucleated Red Blood 0.0 Cells # Sodium Level 137 Potassium Level 4.5 Chloride Level 99 Carbon Dioxide Level 30 Anion Gap 8 Blood Urea Nitrogen 27 #H Creatinine 0.83 Est Glomerular Filtrat Rate mL/min Glucose Level 137 Calcium Level 9.4 Phosphorus Level 3.8 Magnesium Level 2.2 Total Bilirubin 0.4 Direct Bilirubin 0.00 Indirect Bilirubin 0.4 Aspartate Amino 32 Transf (AST/SGOT) Alanine 78 H Aminotransferase (ALT/SG PT) Alkaline Phosphatase 106 Total Protein 6.3 Albumin 3.0 L Globulin 3.30 H Albumin/Globulin Ratio 0.90 Medications Medication Current Medications IV Flush (NS 3 ml) 3 ml PER PROTOCOL IV ; Start 09/23/18 at 13:00 Lorazepam (Ativan) 0.5 mg Q8H PRN PO .ANXIETY Last administered on 10/08/18at 22:42; Admin Dose 0.5 MG; Start 09/23/18 at 13:00 Ondansetron HCl (Zofran Inj) 4 mg Q6H PRN IV NAUSEA/VOMITING; Start 09/23/18 at 13:00 Docusate Sodium (Colace) 100 mg Q12H PRN PO .CONSTIPATION; Start 09/23/18 at 13:00 Magnesium Hydroxide (Milk Of Mag) 30 ml DAILY PRN PO .CONSTIPATION; Start 09/23/18 at 13:00 Miscellaneous Information 1 ea NOTE XX ; Start 09/23/18 at 13:30 Glucose (Glutose) 15 gm Q15M PRN PO DECREASED GLUCOSE; Start 09/23/18 at 13:30 Glucose (Glutose) 22.5 gm Q15M PRN PO DECREASED GLUCOSE; Start 09/23/18 at 13:30 Dextrose (D50w Syringe) 25 ml Q15M PRN IV DECREASED GLUCOSE; Start 09/23/18 at 13:30 Dextrose (D50w Syringe) 50 ml Q15M PRN IV DECREASED GLUCOSE; Start 09/23/18 at 13:30 Glucagon (Glucagen) 1 mg Q15M PRN IM DECREASED GLUCOSE; Start 09/23/18 at 13:30 Glucose (Glutose) 15 gm Q15M PRN BUCCAL DECREASED GLUCOSE; Start 09/23/18 at 13:30 Enoxaparin Sodium (Lovenox) 75 mg Q24H SC Last administered on 10/12/18at 13:46; Admin Dose 75 MG; Start 09/26/18 at 13:00; Status Hold Lidocaine (Lidoderm) 1 patch DAILY TD Last administered on 10/14/18 09:31; Admin Dose 1 PATCH; Start 09/26/18 at 12:00 Lorazepam (Ativan) 0.5 mg Q4H PRN IV ANXIETY Last administered on 09/29/18at 23:01; Admin Dose 0.5 MG; Start 09/26/18 at 19:30 Metoprolol Tartrate (Lopressor) 50 mg BID PO Last administered on 10/14/18at 21:45; Admin Dose 50 MG; Start 09/27/18 at 21:00 Felodipine (Plendil) 2.5 mg DAILY PO Last administered on 10/14/18 09:25; Admin Dose 2.5 MG; Start 09/29/18 at 09:00 Famotidine (Pepcid) 20 mg DAILY PO Last administered on 10/14/18 09:25; Admin Dose 20 MG; Start 09/30/18 at 09:00 Guaifenesin/ Codeine Phosphate (Robitussin Ac Liquid Cup) 5 ml Q4H PRN PO COUGH Last administered on 10/06/18at 12:56; Admin Dose 5 ML; Start 10/01/18 at 10:30 Insulin Aspart (Novolog Insulin Pen) NOVOLOG *MODERATE* ALGORITHM WITH MEALS BEDTIME SC Last administered on 10/14/18 12:19; Admin Dose 4 UNIT; Start 10/01/18 at 11:30 Diagnostic Test (Pha) (Accu-Chek) 1 ea 02 XX Last administered on 10/13/18 02:00; Admin Dose 1 EA; Start 10/02/18 at 02:00 Eye Lubricant (Artificial Tears Oph) 2 drop PRN PRN BOTH EYES DRY EYES Last administered on 10/14/18 02:48; Admin Dose 2 DROP; Start 10/01/18 at 18:30 Docusate Sodium (Colace) 100 mg BID PO Last administered on 10/14/18 21:44; Ad min Dose 100 MG; Start 10/02/18 at 13:00 Insulin Glargine (Lantus) 15 units DAILY@0800 SC Last administered on 10/14/18 07:48; Admin Dose 15 UNITS; Start 10/06/18 at 08:00 Magnesium Oxide (Mag-Ox 400) 400 mg DAILY PO Last administered on 10/14/18 09:25; Admin Dose 400 MG; Start 10/08/18 at 09:00 Doxycycline Hyclate (Vibramycin) 100 mg BID PO Last administered on 10/14/18 21:44; Admin Dose 100 MG; Start 10/08/18 at 09:00 Aspirin (Halfprin) 81 mg DAILY PO Last administered on 10/14/18 09:24; Admin Dose 81 MG; Start 10/14/18 at 09:00 Clopidogrel Bisulfate (plaVIX) 75 mg DAILY PO Last administered on 10/14/18 09:25; Admin Dose 75 MG; Start 10/14/18 at 09:00 Acetaminophen (Tylenol Tab) 650 mg Q4H PRN PO PAIN; Start 10/13/18 at 10:00 Oxycodone/ Acetaminophen (Percocet (5/ 325)) 1 tab Q4H PRN PO PAIN; Start 10/13/18 at 10:00 Morphine Sulfate (morphine) 1 mg Q1H PRN IV PAIN; Start 10/13/18 at 10:00 Al Hydrox/Mg Hydrox/Simethicone (Mag-Al Plus) 30 ml Q4H PRN PO GASTROINTESTINAL UPSET; Start 10/13/18 at 10:00 Ondansetron HCl (Zofran Inj) 4 mg Q4H PRN IV NAUSEA AND/OR VOMITING; Start 10/13/18 at 10:00 Zolpidem Tartrate (Ambien) 5 mg HS PRN PO SLEEP Last administered on 10/14/18at 21:50; Admin Dose 5 MG; Start 10/14/18 at 16:30 Bumetanide (Bumex) 2 mg DAILY PO ; Start 10/15/18 at 09:00 HARPREET HALE MD Oct 15, 2018 06:41
[2018-10-15] MEDS: INSULIN GLARGINE [LANTus] (100 UNITS/ML) SYG SC SCH (07:39)
[2018-10-15] MEDS: INSULIN ASPART [NOVOLOG] 3 ML PEN SC SCH (07:40)
[2018-10-15 07:47] VITALS: BP 131/63; PULSE 77; RESP 18
--- NOTE | 2018-10-15 08:20 | PDOCDIS ---
Discharge Instructions DIAGNOSIS Discharge Diagnosis 1. CHF , 2.; Pneumonia , 3. CAD CONDITION [id number] Patient Condition: [id number] Good HOME CARE INSTRUCTIONS: [id number] Diet Instructions: Aknqi5h Reduced Calorie ACTIVITY: [id number] Activity Restrictions: [id number] Slowly Increase Activity Rest between Activity Avoid heavy lifting Avoid Heavy Housework Weight Bearing [id number] Bathing Restrictions: [id number] Shower FOLLOW UP/APPOINTMENTS Follow-up Plan to Acute Rehab Unit . GENARO Walker MD Oct 15, 2018 08:20
[2018-10-15] MEDS: METOPROLOL 50 MG TAB PO SCH (08:30)
[2018-10-15] MEDS: FAMOTIDINE 20 MG TAB PO SCH (08:30)
[2018-10-15] MEDS: DOCUSATE SODIUM 100 MG CAP PO SCH (08:30)
[2018-10-15] MEDS: FELODIPINE (ER) 2.5 MG TAB PO SCH (08:30)
[2018-10-15] MEDS: CLOPIDOGREL 75 MG TAB PO SCH (08:30)
[2018-10-15] MEDS: MAGNESIUM OXIDE 400 MG TAB PO SCH (08:31)
[2018-10-15] MEDS: LIDOCAINE 5% PATCH TD SCH (08:31)
[2018-10-15] MEDS: ASPIRIN (EC) 81 MG TAB PO SCH (08:31)
[2018-10-15] MEDS: ARTIFICIAL TEARS 15 ML OPH BOTH EYES PRN (08:32)
[2018-10-15] MEDS ORDERED: BUMETANIDE 1 MG TAB PO SCH (09:00)
--- NOTE | 2018-10-15 11:09 | CONS ---
Assessment/Plan Assessment/Plan Hospital Course (Demo Recall) ASSESSMENT: 1. Multi lobar broncho pneumonia possible ARDS w component of possible acute d iastolic HF 2. Non-ST elevation myocardial infarction s/p PCI with to LCx with HARITHA x 2 3. Hypertension. 4. Type 2 diabetes. 5. Mild to moderate aortic stenosis. 6. Acute diastolic heart failure. 7. Gout. 8. Normocytic anemia. 9. Hyperlipidemia. 10 History of breast cancer. 11. Renal insufficiency resolved . 12. PAF- < 24hr while in ICU, no recurrence PLAN: 1. cont asa 81mg daily 2. plavix 75mg po daily for 12 mo post PCI with HARITHA for NSTEMI 3. hlding statin do to elevated lfts, downtrending, when normalized restart at at least moderate dose statin. check lipids in am 4. tele without recurrent afib, monitor 5. resume diuresisas tolerated 7. ok to transfer to acute rehab when accepted d/w Dr. Plata Consultation Date/Type/Reason Admit Date/Time Sep 23, 2018 at 07:08 Initial Consult Date 09/25/18 Type of Consult cardiology Requesting Provider: GENARO SEPULVEDA MD Date/Time of Note DATE: 10/15/18 TIME: 11:05 24 HR Interval Summary Free Text/Dictation no acute events. seen this am off o2, states working with pt. no cp, mild sob with pt. no pnd, orthopnea, still with cough tele reviewed nsr Detailed Summary Eyes: no complaints ENT: no complaints Respiratory: cough Cardiovascular: no complaints Gastrointestinal: no complaints Exam/Review of Systems Exam Vitals Vital Signs Date Temp Pulse Resp B/P (MAP) Pulse Ox O2 O2 Flow FiO2 Time Delivery Rate 10/15/18 98.3 77 18 131/63 93 07:47 (85) 10/15/18 Nasal 2.0 03:47 Cannula 10/13/18 33 12:33 Intake and Output 10/14/18 10/14/18 10/15/18 1515:00 23:00 07:00 IntakeIntake Total 360 ml 300 ml OutputOutput Total 400 ml 500 ml BalanceBalance 360 ml -400 ml -200 ml Exam HEENT; no JVD, no HJR, carotids 2 over 4+ without bruits. Chest:improved clear anterior and superior post Cardiac: S4, S1, S2 with normal physiologic splitting, 2/6 early to mid peaking systolic ejection murmur, no rub click or diastolic murmur noted. Abdominal: Bowel sounds positive, soft nontender, no abdominal bruit noted, no hepatosplenomegaly. Extremities: No cyanosis, clubbing, or edema. Negative Homans sign or palpable cords. Pulses: 2/4 pulses diffusely no bruits noted. R wrist 2+ Radial, mild bruising no ttp Results Result Diagram: 10/15/184 10/15/184 Results 24hrs Laboratory Tests Test 10/14/18 12:13 10/14/18 13:45 10/14/18 17:14 10/14/18 21:46 Bedside Glucose 183 123 168 Urine Color YELLOW Urine Clarity CLOUDY A Urine pH 5.0 Urine Specific [place] 1.020 Urine Ketones NEGATIVE Urine Nitrite NEGATIVE Urine Bilirubin NEGATIVE Urine Urobilinogen NEGATIVE Urine Leukocyte Esterase 2+ H Urine Microscopic RBC 14 H Urine Microscopic WBC 102 H Urine Bacteria FEW A Urine Yeast (Budding) FEW A Urine Hemoglobin 1+ H Urine Glucose NEGATIVE Urine Total Protein 1+ H Test 10/15/18 04:44 10/15/18 07:30 White Blood Count 6.8 Red Blood Count 2.87 L Hemoglobin 7.9 L Hematocrit 24.6 L Mean Corpuscular Volume 85.7 Mean Corpuscular 27.5 L Hemoglobin Mean Corpuscular 32.1 Hemoglobin Concent Red Cell Distribution 13.6 Width Platelet Count 358 Mean Platelet Volume 11.1 H Immature Granulocytes % 0.600 H Neutrophils % 70.3 Lymphocytes % 17.3 Monocytes % 8.8 Eosinophils % 2.6 Basophils % 0.4 Nucleated Red Blood 0.0 Cells % Immature Granulocytes # 0.040 H Neutrophils # 4.8 Lymphocytes # 1.2 Monocytes # 0.6 Eosinophils # 0.2 Basophils # 0.0 Nucleated Red Blood 0.0 Cells # Sodium Level 137 Potassium Level 4.5 Chloride Level 99 Carbon Dioxide Level 30 Anion Gap 8 Blood Urea Nitrogen 27 #H Creatinine 0.83 Est Glomerular Filtrat Rate mL/min Glucose Level 137 Calcium Level 9.4 Phosphorus Level 3.8 Magnesium Level 2.2 Iron Level 26 L Total Iron Binding 220 L Capacity Percent Iron Saturation 12 L Ferritin 548.0 H Total Bilirubin 0.4 Direct Bilirubin 0.00 Indirect Bilirubin 0.4 Aspartate Amino 32 Transf (AST/SGOT) Alanine 78 H Aminotransferase (ALT/SG PT) Alkaline Phosphatase 106 Total Protein 6.3 Albumin 3.0 L Globulin 3.30 H Albumin/Globulin Ratio 0.90 Bedside Glucose 136 Imaging Imaging cxr report reviewed Medications Medication Current Medications IV Flush (NS 3 ml) 3 ml PER PROTOCOL IV ; Start 09/23/18 at 13:00 Lorazepam (Ativan) 0.5 mg Q8H PRN PO .ANXIETY Last administered on 10/08/18at 22:42; Admin Dose 0.5 MG; Start 09/23/18 at 13:00 Ondansetron HCl (Zofran Inj) 4 mg Q6H PRN IV NAUSEA/VOMITING; Start 09/23/18 at 13:00 Docusate Sodium (Colace) 100 mg Q12H PRN PO .CONSTIPATION; Start 09/23/18 at 13:00 Magnesium Hydroxide (Milk Of Mag) 30 ml DAILY PRN PO .CONSTIPATION; Start 09/23/18 at 13:00 Miscellaneous Information 1 ea NOTE XX ; Start 09/23/18 at 13:30 Glucose (Glutose) 15 gm Q15M PRN PO DECREASED GLUCOSE; Start 09/23/18 at 13:30 Glucose (Glutose) 22.5 gm Q15M PRN PO DECREASED GLUCOSE; Start 09/23/18 at 13:30 Dextrose (D50w Syringe) 25 ml Q15M PRN IV DECREASED GLUCOSE; Start 09/23/18 at 13:30 Dextrose (D50w Syringe) 50 ml Q15M PRN IV DECREASED GLUCOSE; Start 09/23/18 at 13:30 Glucagon (Glucagen) 1 mg Q15M PRN IM DECREASED GLUCOSE; Start 09/23/18 at 13:30 Glucose (Glutose) 15 gm Q15M PRN BUCCAL DECREASED GLUCOSE; Start 09/23/18 at 13:30 Enoxaparin Sodium (Lovenox) 75 mg Q24H SC Last administered on 10/12/18at 13:46; Admin Dose 75 MG; Start 09/26/18 at 13:00; Status Hold Lidocaine (Lidoderm) 1 patch DAILY TD Last administered on 10/15/18at 08:31; Admin Dose 1 PATCH; Start 09/26/18 at 12:00 Lorazepam (Ativan) 0.5 mg Q4H PRN IV ANXIETY Last administered on 09/29/18at 23:01; Admin Dose 0.5 MG; Start 09/26/18 at 19:30 Metoprolol Tartrate (Lopressor) 50 mg BID PO Last administered on 10/15/18 08:30; Admin Dose 50 MG; Start 09/27/18 at 21:00 Felodipine (Plendil) 2.5 mg DAILY PO Last administered on 10/15/18 08:30; Admin Dose 2.5 MG; Start 09/29/18 at 09:00 Famotidine (Pepcid) 20 mg DAILY PO Last administered on 10/15/18 08:30; Admin Dose 20 MG; Start 09/30/18 at 09:00 Guaifenesin/ Codeine Phosphate (Robitussin Ac Liquid Cup) 5 ml Q4H PRN PO COUGH Last administered on 10/06/18 12:56; Admin Dose 5 ML; Start 10/01/18 at 10:30 Insulin Aspart (Novolog Insulin Pen) NOVOLOG *MODERATE* ALGORITHM WITH MEALS BEDTIME SC Last administered on 10/14/18 12:19; Admin Dose 4 UNIT; Start 10/01/18 at 11:30 Diagnostic Test (Pha) (Accu-Chek) 1 ea 02 XX Last administered on 10/13/18 02:00; Admin Dose 1 EA; Start 10/02/18 at 02:00 Eye Lubricant (Artificial Tears Oph) 2 drop PRN PRN BOTH EYES DRY EYES Last administered on 10/15/18 08:32; Admin Dose 2 DROP; Start 10/01/18 at 18:30 Docusate Sodium (Colace) 100 mg BID PO Last administered on 10/15/18 08:30; Admin Dose 100 MG; Start 10/02/18 at 13:00 Insulin Glargine (Lantus) 15 units DAILY@0800 SC Last administered on 10/15/18 07:39; Admin Dose 15 UNITS; Start 10/06/18 at 08:00 Magnesium Oxide (Mag-Ox 400) 400 mg DAILY PO Last administered on 10/15/18 08:31; Admin Dose 400 MG; Start 10/08/18 at 09:00 Aspirin (Halfprin) 81 mg DAILY PO Last administered on 10/15/18 08:31; Admin Dose 81 MG; Start 10/14/18 at 09:00 Clopidogrel Bisulfate (plaVIX) 75 mg DAILY PO Last administered on 10/15/18at 08:30; Admin Dose 75 MG; Start 10/14/18 at 09:00 Acetaminophen (Tylenol Tab) 650 mg Q4H PRN PO PAIN; Start 10/13/18 at 10:00 Oxycodone/ Acetaminophen (Percocet (5/ 325)) 1 tab Q4H PRN PO PAIN; Start 10/13/18 at 10:00 Morphine Sulfate (morphine) 1 mg Q1H PRN IV PAIN; Start 10/13/18 at 10:00 Al Hydrox/Mg Hydrox/Simethicone (Mag-Al Plus) 30 ml Q4H PRN PO GASTROINTESTINAL UPSET; Start 10/13/18 at 10:00 Ondansetron HCl (Zofran Inj) 4 mg Q4H PRN IV NAUSEA AND/OR VOMITING; Start 10/13/18 at 10:00 Zolpidem Tartrate (Ambien) 5 mg HS PRN PO SLEEP Last administered on 10/14/18at 21:50; Admin Dose 5 MG; Start 10/14/18 at 16:30 Bumetanide (Bumex) 2 mg DAILY PO Last administered on 10/15/18at 08:31; Admin Dose 2 MG; Start 10/15/18 at 09:00 YAIMA BARROW Oct 15, 2018 11:09
--- NOTE | 2018-10-15 15:43 | RADRPT ---
Vent Rate: 80 bpm RR Interval: 752 msec CO Interval: 238 msec QRS Duration: 106 msec QT Interval: 380 msec QTC Interval: 438 msec P-R-T [place]: 71 - 86 - -41 degrees Sinus rhythm...normal P axis, V-rate 50- 99 Prolonged CO interval...CO >220, V-rate 50- 90 Probable inferior infarct, age indeterminate...Q>35mS, T neg, II III aVF Nonspecific T abnormalities, lateral leads...T <-0.10mV, I aVL V5 V6 Electronically Signed By: Arsen Freedman
== END 2018-10-15 11:27 | DRG 246 ==
LOC: E/R 05:22 → ICU 07:08 → CANRESERV 11:20 → ICU 16:00 → 6WM 10-05 12:16
PROVIDERS: ADMIT Internal Medicine; ATTEND Internal Medicine
PROC: 027135Z Dilation of Coronary Artery, Two Arteries with Two Drug-eluting Intraluminal Devices, Percutaneous Approach (ICD-10-PCS; principal; 2018-10-13 07:30)
PROC: 4A023N7 Measurement of Cardiac Sampling and Pressure, Left Heart, Percutaneous Approach (ICD-10-PCS; 2018-10-13 07:30)
DX: I21.A1 Myocardial infarction type 2 (principal); I50.31 Acute diastolic (congestive) heart failure; J18.9 Pneumonia, unspecified organism; J96.01 Acute respiratory failure with hypoxia; I13.0 Hypertensive heart and chronic kidney disease with heart failure and stage 1 through stage 4 chronic kidney disease, or unspecified chronic kidney disease; N17.9 Acute kidney failure, unspecified; J81.1 Chronic pulmonary edema; I21.4 Non-ST elevation (NSTEMI) myocardial infarction; D64.9 Anemia, unspecified; F41.9 Anxiety disorder, unspecified; E78.5 Hyperlipidemia, unspecified; K21.9 Gastro-esophageal reflux disease without esophagitis; D50.9 Iron deficiency anemia, unspecified; M10.9 Gout, unspecified; N18.9 Chronic kidney disease, unspecified; E11.65 Type 2 diabetes mellitus with hyperglycemia; I35.0 Nonrheumatic aortic (valve) stenosis; I48.0 Paroxysmal atrial fibrillation; Y95 Nosocomial condition; N32.89 Other specified disorders of bladder; I25.10 Atherosclerotic heart disease of native coronary artery without angina pectoris; Z79.4 Long term (current) use of insulin; Z85.3 Personal history of malignant neoplasm of breast
CPT/HCPCS: 36415; 36600; 71045; 71275; 76604; 76700; 76705; 80048; 80053; 80076; 80202; 81001; 82550; 82553; 82607; 82728; 82803; 82962; 83036; 83540; 83605; 83615; 83690; 83735; 83880; 84100; 84132; 84145; 84443; 84484; 85025; 85049; 85610; 85651; 85670; 85730; 86021; 86038; 86704; 86709; 86803; 87070; 87081; 87086; 87275; 87276; 87279; 87280; 87340; 92526; 92610; 93005; 93306; 93308; 93458; 93880; 93970; 94660; 96374; 97116; 97162; 97530; C1725; C1874; C1887; C9600; J1644; J1650; J1815; J1940; J1956; J2060; J2185; J2250; J2405; J2916; J3010; J3370; J3475; J3480; J7050; J7070; J7120; Q9967

== ENCOUNTER 2018-10-15 09:27 | Inpatient (IN) | payer MEDICARE, OTHER ==
[~2018-10-15] VITALS: Ht 165.1 cm; Wt 76.0 kg
--- NOTE | 2018-10-15 10:20 | DS ---
DATE OF ADMISSION: 10/15/2018 DATE OF DISCHARGE: HISTORY OF PRESENT ILLNESS AND HOSPITAL COURSE: This 88-year-old female was admitted through the [facility] room after she came in with 1 day of increasing shortness of breath. Initially, the patient w as felt to be in congestive heart failure. She was given diuretics and transferred to the intensive care unit. In the intensive care unit, she required high flow oxygen and BiPAP. She was eventually tapered off of the BiPAP and the high flow oxygen. She has been getting diuretics and has been in ne gative fluid balance. Her chest x-ray did show congestive heart failure. This has improved since he r hospitalization. She also was felt to have pneumonia and she was treated with antibiotics. She wa s seen in consultation by Dr. Pacheco, cryptologic technician technical, Dr. Lambert, a sheet hanger and Dr. Jacobson, an i nfectious disease specialist. The patient has improved significantly. She is now off walking and wi ll be transferred today to the acute rehabilitation unit for comprehensive rehabilitation. DISCHARGE MEDICATIONS: 1. Bumex 2 mg a day. 2. Zolpidem 5 mg at bedtime. 3. Aspirin 81 mg a day. 4. Clopidogrel 75 mg a day. 5. Tylenol p.r.n. pain. 6. Percocet p.r.n. pain. 7. Mag plus for constipation. 8. Mag ox 400 daily. 9. Insulin. 10. Stool softener. 11. Eye lubricant. 12. Famotidine 20 mg a day. 13. Felodipine 2.5 mg a day. 14. Metoprolol 50 mg twice a day. 15. Lorazepam 0.5 mg q.4h.p.r.n. agitation. 16. She will have Accu-Cheks done before meals with moderate sliding scale. While in the hospital, she did undergo a left heart catheterization with coronary angiogram and was f ound to have 2 stenotic lesions in the left circumflex artery. Those were angioplasties and stents w ere placed. The patient does have type 2 diabetes mellitus, hypertension, she is anemic and iron sammie dies will be repeated. She was in good condition at the time of discharge. DISCHARGE DIAGNOSES: 1. Diastolic congestive heart failure. 2. Coronary artery disease. 3. Status post coronary artery stents x2. 4. Hypertension. 5. Pneumonia. Dictated By: GENARO SEPULVEDA MD ND/NTS Conf#: [id number] DID#: [id number] CC: DEYSI ANNA MD;*EndCC*
[2018-10-15 11:30] VITALS: BP 125/53; PULSE 76; RESP 18
[2018-10-15] MEDS ORDERED: DOCUSATE SODIUM 100 MG CAP PO PRN (12:00)
[2018-10-15] MEDS ORDERED: MAGNESIUM HYDROXIDE 30ML CUP PO PRN (12:00)
[2018-10-15] MEDS ORDERED: PENDING SANTYL ORDER FOR WOUND CARE XX PRN (12:00)
[2018-10-15] MEDS ORDERED: BISACODYL 10 MG SUPP PR PRN (12:00)
[2018-10-15] MEDS ORDERED: LACTULOSE 30ML CUP PO PRN (12:00)
[2018-10-15] MEDS ORDERED: GUAIFENESIN/CODEINE 5ML CUP PO PRN (12:30)
[2018-10-15] MEDS ORDERED: GLUCAGON 1 MG INJ IM PRN (12:30)
[2018-10-15] MEDS ORDERED: ALUMINUM HYDROXIDE 30 ML CUP PO PRN (12:30)
[2018-10-15] MEDS ORDERED: GLUCOSE GEL 15 GRAM TUBE BUCCAL PRN (12:30)
[2018-10-15] MEDS ORDERED: OXYCODONE/ACETAMINOPHEN (5/325) TAB PO PRN (12:30)
[2018-10-15] MEDS ORDERED: GLUCOSE GEL 15 GRAM TUBE PO PRN ×2 (12:30)
[2018-10-15] MEDS ORDERED: DEXTROSE 50% 50 ML SYRINGE IV PRN ×2 (12:30)
[2018-10-15 14:00] VITALS: BP 124/60; PULSE 84; RESP 18
[2018-10-15] MEDS: INSULIN ASPART [NOVOLOG] 3 ML PEN SC SCH ×2 (17:27→21:00)
[2018-10-15 19:57] VITALS: BP 132/65; PULSE 77; RESP 18
[2018-10-15] MEDS: METOPROLOL 25 MG TAB PO SCH (21:14)
[2018-10-15] MEDS: ACETAMINOPHEN 325 MG TAB PO PRN (23:44)
[2018-10-16 02:00] VITALS: BP 128/61; PULSE 80; RESP 18
[2018-10-16] MEDS: BUMETANIDE 1 MG TAB PO SCH (06:07)
[2018-10-16 07:00] VITALS: BP 155/70; PULSE 84; RESP 18
[2018-10-16] MEDS: LIDOCAINE 5% PATCH TD SCH (08:11)
[2018-10-16] MEDS: INSULIN ASPART [NOVOLOG] 3 ML PEN SC SCH ×4 (08:14→20:24)
[2018-10-16] MEDS: ENOXAPARIN 40 MG/0.4 ML SYG SC SCH (08:15)
[2018-10-16 08:16] VITALS: BP 107/53; PULSE 85
[2018-10-16] MEDS: ASPIRIN (EC) 81 MG TAB PO SCH (08:16)
[2018-10-16] MEDS: CLOPIDOGREL 75 MG TAB PO SCH (08:16)
[2018-10-16] MEDS: MAGNESIUM OXIDE 400 MG TAB PO SCH (08:16)
[2018-10-16] MEDS: FAMOTIDINE 20 MG TAB PO SCH (08:16)
[2018-10-16] MEDS: FELODIPINE (ER) 2.5 MG TAB PO SCH (08:16)
[2018-10-16] MEDS: INSULIN GLARGINE [LANTus] (100 UNITS/ML) SYG SC SCH (08:16)
[2018-10-16] MEDS: METOPROLOL 25 MG TAB PO SCH ×2 (08:17→20:22)
[2018-10-16] MEDS: ARTIFICIAL TEARS 15 ML OPH BOTH EYES PRN (08:29)
--- NOTE | 2018-10-16 14:55 | CONS ---
DATE OF ADMISSION: 10/15/2018 DATE OF CONSULTATION: 10/16/2018 HISTORY OF PRESENT ILLNESS: This 88-year-old female was initially admitted to [facility] on 09/23/2018 because of shortness of breath. The patient was well until the day before admis salbador when she started to develop some shortness of breath. She came to the emergency room here at [facility] and was found to have evidence of pulmonary vascular congestion on her william st x-ray. Her troponin levels were elevated. She was admitted to the intensive care unit. She requ ired high flow oxygen and intermittent BiPAP to support her breathing because of hypoxia. She also h ad some infiltrates on her chest x-ray, which were thought to be pneumonia. She did have an elevated procalcitonin level and was treated with antibiotics for pneumonia. She was also thought to be in c ongestive heart failure and this was probably the primary reason for her shortness of breath. She wa s started on high doses of diuretics and did diurese very well and improved on the diuretics. Eventu ally, she did not require BiPAP and was transitioned from high flow oxygen to just regular nasal chai dolores. She overall improved and was transferred out of the ICU and on to telemetry. She continued to improve there and is now transferred to the acute rehab unit here at [facility]. S he is awake and alert. She denies any chest pain or shortness of breath. During her hospitalization , she did undergo a left heart catheterization and was found to have some coronary artery disease and underwent a PCI with stent placement x2. Today, she is awake and alert. She has no shortness of br eath now, but did have some earlier. She has a slight cough. Her blood pressure earlier today, was lower than usual, when she was sitting. PAST MEDICAL HISTORY: Remarkable for hypertension, type 2 diabetes mellitus, 1 episode of gout in a joint that was in a bunion and underwent a bunionectomy that did show some gout; however, she has nev er really had an acute gout attack. Other past medical history of coronary artery disease, recent pn eumonia, diastolic congestive heart failure. PHYSICAL EXAMINATION: GENERAL: At this time reveals a well-developed female in no apparent distress. VITAL SIGNS: Temperature 98, pulse of 85, blood pressure 107/53, O2 saturation of 97% on room air. HEENT: Head normocephalic. Eyes: Extraocular muscles intact. NOSE AND MOUTH: Normal. NECK: Supple, no neck vein distention. LUNGS: Clear to auscultation. HEART: Regular rhythm. No murmurs, gallops or rubs. ABDOMEN: Soft, nontender, no masses or megaly. EXTREMITIES: No peripheral edema. NEUROLOGIC: Grossly intact. IMPRESSION: 1. 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 2. History of diastolic congestive heart failure. 3. Pneumonia. 4. Hypertension. 5. Type 2 diabetes mellitus. 6. Anemia of chronic disease. PLAN: 1. Resume routine medications. 2. Start comprehensive rehabilitation program. 3. I will continue to follow the patient along with you. Dictated By: GENARO SEPULVEDA MD, ND/NTS Conf#: [id number] DID#: [id number] CC: DEYSI ANNA MD;*EndCC*
--- NOTE | 2018-10-16 15:36 | CONS ---
DATE OF ADMISSION: 10/15/2018 DATE OF CONSULTATION: 10/16/2018 REHABILITATION POST-ADMISSION PHYSICIAN EVALUATION REHABILITATION IMPAIRMENT CATEGORY: Myopathy ACTIVE COMORBIDITIES: Include: 1. Congestive cardiac failure. 2. Status post pneumonia with hypoxemic respiratory failure. 3. Coronary artery disease status post stent placement x2. 4. Essential hypertension. HISTORY OF PRESENT ILLNESS: This is an 88-year-old lady originally admitted with 1-day history of in creasing shortness of breath, orthopnea, PND, hypoxemia, found to have evidence of heart failure on c hest x-ray, requiring initial noninvasive positive pressure ventilation. Treated with aggressive diu resis and antibiotics for evidence of community-acquired pneumonia also. She eventually decreased fr om bilevel to high flow O2 and then to nasal cannula O2 and eventually was stable enough to have card iac catheterization performed. Cardiac catheterization demonstrated severe multivessel disease and t he patient underwent a coronary intervention with drug-eluting stent placement x2 to the left circumf russ. Prolonged recovery resulted in myopathy and subsequently transferred to acute rehab unit. FUNCTIONAL HISTORY: Prior to recent events, the patient was independent in self-care tasks and mobil ity. Currently, requires assistance with mobility and self-care. I have reviewed the preadmission s creen and the patient's current functional status is consistent with the preadmission screening. FAMILY SOCIAL HISTORY: The patient was previously independent prior to admission. PAST MEDICAL HISTORY: Heart failure with diastolic dysfunction, coronary artery disease and essentia l hypertension. CURRENT MEDICATIONS: Include: 1. Aspirin 81 mg daily. 2. Plavix 75 mg daily. 3. Lovenox 80 mg subcu daily. 4. Felodipine 2.5 mg p.o. b.i.d. 5. Magnesium oxide daily. 6. Insulin Glargine 15 units subq daily. 7. Bumex 2 mg p.o. daily. 8. Ativan p.r.n. 9. Percocet 1 tablet q.4 p.r.n. 10. Colace p.r.n. SYSTEMS REVIEW: THE PATIENT IS ALLERGIC TO PENICILLIN. PHYSICAL EXAMINATION: GENERAL: Elderly lady, appears comfortable at rest, no acute distress. VITAL SIGNS: Currently afebrile, temperature 98, pulse 85, blood pressure 107/53 on room air. NECK: Supple. JVD is not elevated. CARDIAC: S1, S2, II/ systolic ejection murmur. CHEST: Diminished air entry at the bases. ABDOMEN: Soft, nontender. No guarding or rebound. EXTREMITIES: No cyanosis, clubbing or edema. NEUROLOGIC: Grossly intact. LABORATORY DATA: White count 4, hemoglobin 8.7, platelets of 390, BUN 29, creatinine 0.91. INR 1.21 . DIAGNOSTIC DATA: Chest x-ray showed resolved congestive cardiac failure, borderline cardiomegaly, bi basilar atelectasis and tiny left effusion. IMPRESSION AND PLAN: The patient is being admitted for comprehensive interdisciplinary acute rehabil itation and is anticipated to tolerate 3 hours of daily therapy in divided doses for at least 5 out o f 7 days a week. Treatment plan will include: 1. Physical therapy to focus on bed mobility, transfers, household ambulation, with a goal of having the patient reach standby assist level. 2. Occupational therapy to focus on hygiene, grooming, dressing, bathing, and toileting activities w ith the goal of having the patient reach standby assist level. 3. Rehabilitation nursing for carryover of therapeutic interventions continent of bowel and bl adder and goal of pain adequately managed on oral medications. Rehabilitation various myopathy inter vention is interdisciplinary approach with focus on physical therapy. Estimated length of stay is 10 to 14 days. DISPOSITION GOAL: Home with family. My colleagues and I performed a full physical examination on this patient within 24 hours of admissio n to the rehabilitation unit. I believe the patient is a good candidate for comprehensive interdisci plinary rehab care and is anticipated to make reasonable goals in a reasonable period of time as outl ined above. Dictated By: PATEL GRIFFITH MD SV/YAHAIRA Conf#: [id number] DID#: [id number] CC: DEYSI ANNA MD;*EndCC*
[2018-10-16 20:00] VITALS: BP 113/60; PULSE 101; RESP 18
[2018-10-17] VITALS (8 sets, daily range): BP systolic 115–161; BP diastolic 58–73; PULSE 75–105; RESP 18
[2018-10-17] MEDS: LORAZEPAM 0.5 MG TAB PO PRN (00:21)
[2018-10-17] MEDS: BUMETANIDE 1 MG TAB PO SCH (06:17)
[2018-10-17] MEDS: INSULIN ASPART [NOVOLOG] 3 ML PEN SC SCH ×4 (07:35→21:00)
[2018-10-17] MEDS: FAMOTIDINE 20 MG TAB PO SCH (07:55)
--- NOTE | 2018-10-17 08:40 | PN ---
Date/Time of Note Date/Time of Note DATE: 10/17/18 TIME: 08:38 Subjective AWAKE ALEERT , NO C/O Objective Vital Signs Date Temp Pulse Resp B/P (MAP) Pulse Ox O2 O2 Flow FiO2 Time Delivery Rate 10/17/18 105 18 145/63 Room Air 07:38 (90) 10/17/18 98.1 98 02:00 Intake and Output 10/16/18 10/16/18 10/17/18 1414:59 22:59 06:59 IntakeIntake Total 1840 ml OutputOutput Total 800 ml BalanceBalance 1040 ml Exam LUNGS CTA COR RRR PROXIMAL WEAKNESS CLOF BED MOB , XT AND GAIT CGA Results/Medications Result Diagram: 10/16/18 0624 10/16/18 06 Results 24 hrs Laboratory Tests Test 10/16/18 11:29 10/16/18 17:10 10/16/18 18:40 10/16/18 20:17 Bedside Glucose 196 132 188 Stool Occult Blood NEGATIVE Test 10/17/18 02:05 10/17/18 07:58 Bedside Glucose 123 125 Medications Current Medications Magnesium Hydroxide (Milk Of Mag) 30 ml BID PRN PO CONSTIPATION; Start 10/15/18 at 12:00 Lactulose (Enulose) 20 gm DAILY PRN PO CONSTIPATION; Start 10/15/18 at 12:00 Bisacodyl (Dulcolax Supp) 10 mg DAILY PRN NM CONSTIPATION; Start 10/15/18 at 12:00 Acetaminophen (Tylenol Tab) 650 mg Q4H PRN PO PAIN Last administered on 10/15/18at 23:44; Admin Dose 650 MG; Start 10/15/18 at 12:00 [facility]iscellaneous Information [facility] This patient salazar... PRN PRN XX WOUND CARE; Start 10/15/18 at 12:00 Docusate Sodium (Colace) 100 mg Q12H PRN PO CONSTIPATION; Start 10/15/18 at 12:00 Insulin Glargine (Lantus) 15 units DAILY@0800 SC Last administered on 10/16/18at 08:16; Admin Dose 15 UNITS; Start 10/16/18 at 08:00 Miscellaneous Information 1 ea NOTE XX ; Start 10/15/18 at 12:30 Glucose (Glutose) 15 gm Q15M PRN PO DECREASED GLUCOSE; Start 10/15/18 at 12:30 Glucose (Glutose) 22.5 gm Q15M PRN PO DECREASED GLUCOSE; Start 10/15/18 at 12:30 Dextrose (D50w Syringe) 25 ml Q15M PRN IV DECREASED GLUCOSE; Start 10/15/18 at 12:30 Dextrose (D50w Syringe) 50 ml Q15M PRN IV DECREASED GLUCOSE; Start 10/15/18 at 12:30 Glucagon (Glucagen) 1 mg Q15M PRN IM DECREASED GLUCOSE; Start 10/15/18 at 12:30 Glucose (Glutose) 15 gm Q15M PRN BUCCAL DECREASED GLUCOSE; Start 10/15/18 at 12:30 Insulin Aspart (Novolog Insulin Pen) NOVOLOG *MODERATE* ALGORITHM WITH MEALS BEDTIME SC Last administered on 10/16/18at 20:24; Admin Dose 1 UNIT; Start 10/15/18 at 12:00 Aluminum Hydroxide (Aluminum Hydroxide) 30 ml Q4H PRN PO GASTROINTESTINAL UPSET; Start 10/15/18 at 12:30 Aspirin (Halfprin) 81 mg DAILY PO Last administered on 10/16/18at 08:16; Admin Dose 81 MG; Start 10/16/18 at 09:00 Bumetanide (Bumex) 2 mg DAILY@0600 PO Last administered on 10/17/18at 06:17; Admin Dose 2 MG; Start 10/16/18 at 06:00 Clopidogrel Bisulfate (plaVIX) 75 mg DAILY PO Last administered on 10/16/18at 08:16; Admin Dose 75 MG; Start 10/16/18 at 09:00 Enoxaparin Sodium (Lovenox) 40 mg DAILY SC Last administered on 10/16/18at 08:15; Admin Dose 40 MG; Start 10/16/18 at 09:00 Famotidine (Pepcid) 20 mg AC BREAKFAST PO Last administered on 10/17/18at 07:55; Admin Dose 20 MG; Start 10/16/18 at 07:05 Felodipine (Plendil) 2.5 mg DAILY PO Last administered on 10/16/18at 08:16; Admin Dose 2.5 MG; Start 10/16/18 at 09:00 Guaifenesin/ Codeine Phosphate (Robitussin Ac Liquid Cup) 5 ml Q4H PRN PO cough; Start 10/15/18 at 12:30 Lidocaine (Lidoderm) 1 patch DAILY TD Last administered on 10/16/18at 08:11; Admin Dose 1 PATCH; Start 10/16/18 at 09:00 Lorazepam (Ativan) 0.5 mg Q8H PRN PO ANXIETY Last administered on 10/17/18at 00:21; Admin Dose 0.5 MG; Start 10/15/18 at 12:30 Magnesium Oxide (Mag-Ox 400) 400 mg DAILY PO Last administered on 10/16/18at 08:16; Admin Dose 400 MG; Start 10/16/18 at 09:00 Metoprolol Tartrate (Lopressor) 25 mg BID PO Last administered on 10/15/18at 21:14; Admin Dose 25 MG; Start 10/15/18 at 21:00 Oxycodone/ Acetaminophen (Percocet (5/ 325)) 1 tab Q4H PRN PO MODERATE to SEV PAIN; Start 10/15/18 at 12:30 Zolpidem Tartrate (Ambien) 5 mg HS PRN PO INSOMNIA; Start 10/15/18 at 12:30 Eye Lubricant (Artificial Tears Oph) 2 drop Q6H PRN BOTH EYES DRY EYES Last administered on 10/16/18 08:29; Admin Dose 2 DROP; Start 10/16/18 at 04:30 Assessment/Plan Additional Assessment/Plan 1. MYOPATHY- CONTINUE THERAPEUTIC INTERVENTIONS, BARRIERS ENDURANCE , STRENGTH AND BALANCE 2.Congestive cardiac failure.CARDIAC PRECAUTIONS 2. Status post pneumonia with hypoxemic respiratory failure. 3. Coronary artery disease status post stent placement x2. 4. Essential hypertension. MARGARET ANNA MD Oct 17, 2018 08:40
[2018-10-17] MEDS: FELODIPINE (ER) 2.5 MG TAB PO SCH ×2 (09:00→14:21)
[2018-10-17] MEDS: INSULIN GLARGINE [LANTus] (100 UNITS/ML) SYG SC SCH (10:15)
[2018-10-17] MEDS: CLOPIDOGREL 75 MG TAB PO SCH (10:23)
[2018-10-17] MEDS: ASPIRIN (EC) 81 MG TAB PO SCH (10:23)
[2018-10-17] MEDS: MAGNESIUM OXIDE 400 MG TAB PO SCH (10:23)
[2018-10-17] MEDS: LIDOCAINE 5% PATCH TD SCH (10:25)
[2018-10-17] MEDS: METOPROLOL 25 MG TAB PO SCH ×2 (10:37→21:29)
[2018-10-17] MEDS: ENOXAPARIN 40 MG/0.4 ML SYG SC SCH (10:39)
--- NOTE | 2018-10-17 10:54 | CONS ---
Assessment/Plan Assessment/Plan Hospital Course (Demo Recall) 1. 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 She is overall doing much better. She is now up walking with a walker. She says she feels a little "wobbly". Her blood pressure is being monitored both sitting and standing and seems acceptable. 2. History of diastolic congestive heart failure. Now well compensated. 3. Pneumonia. Has resolved 4. Hypertension. Controlled 5. Type 2 diabetes mellitus. Controlled 6. Anemia of chronic disease. Consultation Date/Type/Reason Admit Date/Time Oct 15, 2018 at 11:22 Initial Consult Date Date/Time of Note DATE: 10/17/18 TIME: 10:51 24 HR Interval Summary Free Text/Dictation Mandi is overall doing better. She is now up walking with a walker and getting physical therapy and Occupational Therapy. Constitutional: no complaints, improved Exam/Review of Systems Exam Vitals Vital Signs Date Temp Pulse Resp B/P (MAP) Pulse Ox O2 O2 Flow FiO2 Time Delivery Rate 10/17/18 105 18 145/63 Room Air 07:38 (90) 10/17/18 98.0 97 07:00 Intake and Output 10/16/18 10/16/18 10/17/18 1414:59 22:59 06:59 IntakeIntake Total 1840 ml OutputOutput Total 800 ml BalanceBalance 1040 ml Constitutional: alert, oriented, frail Respiratory: clear to auscultation, normal air movement Cardiovascular: regular rate and rhythm Gastrointestinal: soft, non-tender Musculoskeletal: nl extremities to inspection Results Result Diagram: 10/16/18 0624 10/16/18 0624 Results 24hrs Laboratory Tests Test 10/16/18 11:29 10/16/18 17:10 10/16/18 18:40 10/16/18 20:17 Bedside Glucose 196 132 188 Stool Occult Blood NEGATIVE Test 10/17/18 02:05 10/17/18 07:58 Bedside Glucose 123 125 Medications Medication Current Medications Magnesium Hydroxide (Milk Of Mag) 30 ml BID PRN PO CONSTIPATION; Start 10/15/18 at 12:00 Lactulose (Enulose) 20 gm DAILY PRN PO CONSTIPATION; Start 10/15/18 at 12:00 Bisacodyl (Dulcolax Supp) 10 mg DAILY PRN [place] CONSTIPATION; Start 10/15/18 at 12:00 Acetaminophen (Tylenol Tab) 650 mg Q4H PRN PO PAIN Last administered on 10/15/18at 23:44; Admin Dose 650 MG; Start 10/15/18 at 12:00 Miscellaneous Information (Pending [facility] Order For Wound Care) This patient salazar... PRN PRN XX WOUND CARE; Start 10/15/18 at 12:00 Docusate Sodium (Colace) 100 mg Q12H PRN PO CONSTIPATION; Start 10/15/18 at 12:00 Insulin Glargine (Lantus) 15 units DAILY@0800 SC Last administered on 10/17/18at 10:15; Admin Dose 15 UNITS; Start 10/16/18 at 08:00 Miscellaneous Information 1 ea NOTE XX ; Start 10/15/18 at 12:30 Glucose (Glutose) 15 gm Q15M PRN PO DECREASED GLUCOSE; Start 10/15/18 at 12:30 Glucose (Glutose) 22.5 gm Q15M PRN PO DECREASED GLUCOSE; Start 10/15/18 at 12:30 Dextrose (D50w Syringe) 25 ml Q15M PRN IV DECREASED GLUCOSE; Start 10/15/18 at 12:30 Dextrose (D50w Syringe) 50 ml Q15M PRN IV DECREASED GLUCOSE; Start 10/15/18 at 12:30 Glucagon (Glucagen) 1 mg Q15M PRN IM DECREASED GLUCOSE; Start 10/15/18 at 12:30 Glucose (Glutose) 15 gm Q15M PRN BUCCAL DECREASED GLUCOSE; Start 10/15/18 at 12:30 Insulin Aspart (Novolog Insulin Pen) NOVOLOG *MODERATE* ALGORITHM WITH MEALS BEDTIME SC Last administered on 10/16/18at 20:24; Admin Dose 1 UNIT; Start 10/15/18 at 12:00 Aluminum Hydroxide (Aluminum Hydroxide) 30 ml Q4H PRN PO GASTROINTESTINAL UPSET; Start 10/15/18 at 12:30 Aspirin (Halfprin) 81 mg DAILY PO Last administered on 10/17/18at 10:23; Admin Dose 81 MG; Start 10/16/18 at 09:00 Bumetanide (Bumex) 2 mg DAILY@0600 PO Last administered on 10/17/18at 06:17; Admin Dose 2 MG; Start 10/16/18 at 06:00 Clopidogrel Bisulfate (plaVIX) 75 mg DAILY PO Last administered on 10/17/18 10:23; Admin Dose 75 MG; Start 10/16/18 at 09:00 Enoxaparin Sodium (Lovenox) 40 mg DAILY SC Last administered on 10/17/18 10:39; Admin Dose 40 MG; Start 10/16/18 at 09:00 Famotidine (Pepcid) 20 mg AC BREAKFAST PO Last administered on 10/17/18 07:55; Admin Dose 20 MG; Start 10/16/18 at 07:05 Felodipine (Plendil) 2.5 mg DAILY PO Last administered on 10/16/18 08:16; Admin Dose 2.5 MG; Start 10/16/18 at 09:00 Guaifenesin/ Codeine Phosphate (Robitussin Ac Liquid Cup) 5 ml Q4H PRN PO cough; Start 10/15/18 at 12:30 Lidocaine (Lidoderm) 1 patch DAILY TD Last administered on 10/17/18 10:25; Admin Dose 1 PATCH; Start 10/16/18 at 09:00 Lorazepam (Ativan) 0.5 mg Q8H PRN PO ANXIETY Last administered on 10/17/18 00:21; Admin Dose 0.5 MG; Start 10/15/18 at 12:30 Magnesium Oxide (Mag-Ox 400) 400 mg DAILY PO Last administered on 10/17/18 10:23; Admin Dose 400 MG; Start 10/16/18 at 09:00 Metoprolol Tartrate (Lopressor) 25 mg BID PO Last administered on 10/17/18 10:37; Admin Dose 25 MG; Start 10/15/18 at 21:00 Oxycodone/ Acetaminophen (Percocet (5/ 325)) 1 tab Q4H PRN PO MODERATE to SEV PAIN; Start 10/15/18 at 12:30 Zolpidem Tartrate (Ambien) 5 mg HS PRN PO INSOMNIA; Start 10/15/18 at 12:30 Eye Lubricant (Artificial Tears Oph) 2 drop Q6H PRN BOTH EYES DRY EYES Last administered on 10/16/18 08:29; Admin Dose 2 DROP; Start 10/16/18 at 04:30 GENARO SEPULVEDA MD Oct 17, 2018 10:54
[2018-10-17] MEDS: SOD FERRIC GLUC COMPLX 125 MG in SOD CHLORIDE 0.9% 100 ML IVPB SCH (13:34)
[2018-10-17] MEDS: ARTIFICIAL TEARS 15 ML OPH BOTH EYES PRN (14:21)
[2018-10-18] MEDS: ACETAMINOPHEN 325 MG TAB PO PRN (00:09)
[2018-10-18] MEDS: ARTIFICIAL TEARS 15 ML OPH BOTH EYES PRN ×2 (00:12→20:11)
[2018-10-18 02:00] VITALS: BP 132/62; PULSE 82; RESP 18
[2018-10-18] MEDS: BUMETANIDE 1 MG TAB PO SCH (05:46)
[2018-10-18 07:30] VITALS: BP 147/67; PULSE 79; RESP 20
[2018-10-18] MEDS: INSULIN ASPART [NOVOLOG] 3 ML PEN SC SCH ×4 (07:35→20:14)
[2018-10-18] MEDS: INSULIN GLARGINE [LANTus] (100 UNITS/ML) SYG SC SCH (08:36)
[2018-10-18] MEDS: FAMOTIDINE 20 MG TAB PO SCH (08:37)
--- NOTE | 2018-10-18 09:51 | PN ---
Date/Time of Note Date/Time of Note DATE: 10/18/18 TIME: 09:50 Subjective AWAKE ALERT VISITING FAMILY Objective Vital Signs Date Temp Pulse Resp B/P (MAP) Pulse Ox O2 O2 Flow FiO2 Time Delivery Rate 10/18/18 97.9 79 20 147/67 99 Nasal 2.0 07:30 (93) Cannula Intake and Output 10/17/18 10/17/18 10/18/18 1515:00 23:00 07:00 IntakeIntake Total 1310 ml 1000 ml OutputOutput Total 800 ml BalanceBalance 510 ml 1000 ml Exam LUNGS CTA COR RRR EXT - EDEMA, - HOMANS CLOF BED MOB , XT AND GAIT CGA, USING FWW Results/Medications Result Diagram: 10/18/1838 10/18/18 0638 Results 24 hrs Laboratory Tests Test 10/17/18 11:56 10/17/18 17:11 10/17/18 21:28 10/18/18 06:38 Bedside Glucose 148 127 146 White Blood Count 3.5 L Red Blood Count 3.24 L Hemoglobin 8.8 L Hematocrit 27.9 L Mean Corpuscular Volume 86.1 Mean Corpuscular 27.2 L Hemoglobin Mean Corpuscular 31.5 L Hemoglobin Concent Red Cell Distribution 13.7 Width Platelet Count 357 Mean Platelet Volume 10.9 H Immature Granulocytes % 0.300 Neutrophils % 43.1 Lymphocytes % 35.2 Monocytes % 12.7 H Eosinophils % 7.8 H Basophils % 0.9 Nucleated Red Blood 0.0 Cells % Immature Granulocytes # 0.010 Neutrophils # 1.5 L Lymphocytes # 1.2 Monocytes # 0.4 Eosinophils # 0.3 Basophils # 0.0 Nucleated Red Blood 0.0 Cells # Sodium Level 141 Potassium Level 4.9 Chloride Level 103 Carbon Dioxide Level 32 H Anion Gap 6 Blood Urea Nitrogen 22 H Creatinine 0.78 Est Glomerular Filtrat Rate mL/min Glucose Level 103 Calcium Level 9.7 Phosphorus Level 4.4 Magnesium Level 2.2 Total Bilirubin 0.3 Direct Bilirubin 0.00 Indirect Bilirubin 0.3 Aspartate Amino 31 Transf (AST/SGOT) Alanine 61 Aminotransferase (ALT/SG PT) Alkaline Phosphatase 109 Total Protein 6.3 Albumin 3.2 L Globulin 3.10 Albumin/Globulin Ratio 1.03 Test 10/18/18 08:30 Bedside Glucose 136 Medications Current Medications Magnesium Hydroxide (Milk Of Mag) 30 ml BID PRN PO CONSTIPATION; Start 10/15/18 at 12:00 Lactulose (Enulose) 20 gm DAILY PRN PO CONSTIPATION; Start 10/15/18 at 12:00 Bisacodyl (Dulcolax Supp) 10 mg DAILY PRN [place] CONSTIPATION; Start 10/15/18 at 12:00 Acetaminophen (Tylenol Tab) 650 mg Q4H PRN PO PAIN Last administered on 10/18/18at 00:09; Admin Dose 650 MG; Start 10/15/18 at 12:00 Miscellaneous Information (Pending [facility] Order For Wound Care) This patient salazar... PRN PRN XX WOUND CARE; Start 10/15/18 at 12:00 Docusate Sodium (Colace) 100 mg Q12H PRN PO CONSTIPATION; Start 10/15/18 at 12:00 Insulin Glargine (Lantus) 15 units DAILY@0800 SC Last administered on 10/18/18at 08:36; Admin Dose 15 UNITS; Start 10/16/18 at 08:00 Miscellaneous Information 1 ea NOTE XX ; Start 10/15/18 at 12:30 Glucose (Glutose) 15 gm Q15M PRN PO DECREASED GLUCOSE; Start 10/15/18 at 12:30 Glucose (Glutose) 22.5 gm Q15M PRN PO DECREASED GLUCOSE; Start 10/15/18 at 12:30 Dextrose (D50w Syringe) 25 ml Q15M PRN IV DECREASED GLUCOSE; Start 10/15/18 at 12:30 Dextrose (D50w Syringe) 50 ml Q15M PRN IV DECREASED GLUCOSE; Start 10/15/18 at 12:30 Glucagon (Glucagen) 1 mg Q15M PRN IM DECREASED GLUCOSE; Start 10/15/18 at 12:30 Glucose (Glutose) 15 gm Q15M PRN BUCCAL DECREASED GLUCOSE; Start 10/15/18 at 12:30 Insulin Aspart (Novolog Insulin Pen) NOVOLOG *MODERATE* ALGORITHM WITH MEALS BEDTIME SC Last administered on 10/17/18at 11:59; Admin Dose 2 UNIT; Start 10/15/18 at 12:00 Aluminum Hydroxide (Aluminum Hydroxide) 30 ml Q4H PRN PO GASTROINTESTINAL UPSET; Start 10/15/18 at 12:30 Aspirin (Halfprin) 81 mg DAILY PO Last administered on 10/17/18at 10:23; Admin Dose 81 MG; Start 10/16/18 at 09:00 Bumetanide (Bumex) 2 mg DAILY@0600 PO Last administered on 10/18/18 05:46; Admin Dose 2 MG; Start 10/16/18 at 06:00 Clopidogrel Bisulfate (plaVIX) 75 mg DAILY PO Last administered on 10/17/18 10:23; Admin Dose 75 MG; Start 10/16/18 at 09:00 Enoxaparin Sodium (Lovenox) 40 mg DAILY SC Last administered on 10/17/18 10:39; Admin Dose 40 MG; Start 10/16/18 at 09:00 Famotidine (Pepcid) 20 mg AC BREAKFAST PO Last administered on 10/18/18 08:37; Admin Dose 20 MG; Start 10/16/18 at 07:05 Felodipine (Plendil) 2.5 mg DAILY PO Last administered on 10/17/18 14:21; Admin Dose 2.5 MG; Start 10/16/18 at 09:00 Guaifenesin/ Codeine Phosphate (Robitussin Ac Liquid Cup) 5 ml Q4H PRN PO cough; Start 10/15/18 at 12:30 Lidocaine (Lidoderm) 1 patch DAILY TD Last administered on 10/17/18 10:25; Admin Dose 1 PATCH; Start 10/16/18 at 09:00 Lorazepam (Ativan) 0.5 mg Q8H PRN PO ANXIETY Last administered on 10/17/18 00:21; Admin Dose 0.5 MG; Start 10/15/18 at 12:30 Magnesium Oxide (Mag-Ox 400) 400 mg DAILY PO Last administered on 10/17/18 10:23; Admin Dose 400 MG; Start 10/16/18 at 09:00 Metoprolol Tartrate (Lopressor) 25 mg BID PO Last administered on 10/17/18 21:29; Admin Dose 25 MG; Start 10/15/18 at 21:00 Oxycodone/ Acetaminophen (Percocet (5/ 325)) 1 tab Q4H PRN PO MODERATE to SEV PAIN; Start 10/15/18 at 12:30 Zolpidem Tartrate (Ambien) 5 mg HS PRN PO INSOMNIA; Start 10/15/18 at 12:30 Eye Lubricant (Artificial Tears Oph) 2 drop Q6H PRN BOTH EYES DRY EYES Last administered on 10/18/18at 00:12; Admin Dose 2 DROP; Start 10/16/18 at 04:30 Ferric Sodium Gluconate Complex 125 mg/Sodium Chloride 110 ml @ 110 mls/hr DA JHON@1300 IVPB Last administered on 10/17/18at 13:34; Admin Dose 110 MLS/HR; Start 10/17/18 at 13:00; Stop 10/21/18 at 13:59 Assessment/Plan Additional Assessment/Plan 1. MYOPATHY- CONTINUE THERAPEUTIC INTERVENTIONS, BARRIERS ENDURANCE , STRENGTH AND BALANCE, TITRATE OFF 02 2.Congestive cardiac failure.CARDIAC PRECAUTIONS 2. Status post pneumonia with hypoxemic respiratory failure. 3. Coronary artery disease status post stent placement x2.CARDIAC PRECAUTIONS, ASA/PLAVIX 4. Essential hypertension. MARGARET ANNA MD Oct 18, 2018 09:51
[2018-10-18] MEDS: ASPIRIN (EC) 81 MG TAB PO SCH (10:12)
[2018-10-18] MEDS: LORAZEPAM 0.5 MG TAB PO PRN (10:12)
[2018-10-18] MEDS: FELODIPINE (ER) 2.5 MG TAB PO SCH (10:12)
[2018-10-18] MEDS: CLOPIDOGREL 75 MG TAB PO SCH (10:13)
[2018-10-18] MEDS: MAGNESIUM OXIDE 400 MG TAB PO SCH (10:13)
[2018-10-18] MEDS: METOPROLOL 25 MG TAB PO SCH ×2 (10:14→20:11)
[2018-10-18] MEDS: LIDOCAINE 5% PATCH TD SCH (10:16)
[2018-10-18] MEDS: ENOXAPARIN 40 MG/0.4 ML SYG SC SCH (10:18)
[2018-10-18] MEDS: SOD FERRIC GLUC COMPLX 125 MG in SOD CHLORIDE 0.9% 100 ML IVPB SCH (13:54)
[2018-10-18 14:00] VITALS: BP 107/54; PULSE 75; RESP 20
--- NOTE | 2018-10-18 15:27 | CONS ---
Assessment/Plan Assessment/Plan Hospital Course (Demo Recall) 1. 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 She is overall doing much better. She is now up walking with a walker. She says she feels a little "wobbly". Her blood pressure is being monitored both sitting and standing and seems acceptable. 2. History of diastolic congestive heart failure. Now well compensated. 3. Pneumonia. Has resolved 4. Hypertension. Controlled 5. Type 2 diabetes mellitus. Controlled 6. Anemia of chronic disease 7. Rash on sacrum and left buttocks. Wound care nurse thinks that it may be herpes zoster. Patient denies pain. Rashes being covered with Allevyn . Consultation Date/Type/Reason Admit Date/Time Oct 15, 2018 at 11:22 Initial Consult Date Date/Time of Note DATE: 10/18/18 TIME: 15:13 24 HR Interval Summary Free Text/Dictation This patient is awake and alert. She was up with physical therapy today. She is doing better and feeling better. Constitutional: no complaints, improved Exam/Review of Systems Exam Vitals Vital Signs Date Temp Pulse Resp B/P (MAP) Pulse Ox O2 O2 Flow FiO2 Time Delivery Rate 10/18/18 Nasal 2.0 08:00 Cannula 10/18/18 97.9 79 20 147/67 99 07:30 (93) Intake and Output 10/17/18 10/17/18 10/18/18 1515:00 23:00 07:00 IntakeIntake Total 1310 ml 1000 ml OutputOutput Total 800 ml BalanceBalance 510 ml 1000 ml Constitutional: alert, oriented Head: normocephalic Neck: supple Respiratory: clear to auscultation Cardiovascular: regular rate and rhythm, murmurs/extra sounds Gastrointestinal: soft, non-tender Musculoskeletal: nl extremities to inspection Results Result Diagram: 10/18/18 0638 10/18/18 0638 Results 24hrs Laboratory Tests Test 10/17/18 17:11 10/17/18 21:28 10/18/18 06:38 10/18/18 08:30 Bedside Glucose 127 146 136 White Blood Count 3.5 L Red Blood Count 3.24 L Hemoglobin 8.8 L Hematocrit 27.9 L Mean Corpuscular Volume 86.1 Mean Corpuscular 27.2 L Hemoglobin Mean Corpuscular 31.5 L Hemoglobin Concent Red Cell Distribution 13.7 Width Platelet Count 357 Mean Platelet Volume 10.9 H Immature Granulocytes % 0.300 Neutrophils % 43.1 Lymphocytes % 35.2 Monocytes % 12.7 H Eosinophils % 7.8 H Basophils % 0.9 Nucleated Red Blood 0.0 Cells % Immature Granulocytes # 0.010 Neutrophils # 1.5 L Lymphocytes # 1.2 Monocytes # 0.4 Eosinophils # 0.3 Basophils # 0.0 Nucleated Red Blood 0.0 Cells # Sodium Level 141 Potassium Level 4.9 Chloride Level 103 Carbon Dioxide Level 32 H Anion Gap 6 Blood Urea Nitrogen 22 H Creatinine 0.78 Est Glomerular Filtrat Rate mL/min Glucose Level 103 Calcium Level 9.7 Phosphorus Level 4.4 Magnesium Level 2.2 Total Bilirubin 0.3 Direct Bilirubin 0.00 Indirect Bilirubin 0.3 Aspartate Amino 31 Transf (AST/SGOT) Alanine 61 Aminotransferase (ALT/SG PT) Alkaline Phosphatase 109 Total Protein 6.3 Albumin 3.2 L Globulin 3.10 Albumin/Globulin Ratio 1.03 Test 10/18/18 12:13 Bedside Glucose 138 Medications Medication Current Medications Magnesium Hydroxide (Milk Of Mag) 30 ml BID PRN PO CONSTIPATION; Start 10/15/18 at 12:00 Lactulose (Enulose) 20 gm DAILY PRN PO CONSTIPATION; Start 10/15/18 at 12:00 Bisacodyl (Dulcolax Supp) 10 mg DAILY PRN [place] CONSTIPATION; Start 10/15/18 at 12:00 Acetaminophen (Tylenol Tab) 650 mg Q4H PRN PO PAIN Last administered on 10/18/18at 00:09; Admin Dose 650 MG; Start 10/15/18 at 12:00 Miscellaneous Information (Pending [facility] Order For Wound Care) This patient salazar... PRN PRN XX WOUND CARE; Start 10/15/18 at 12:00 Docusate Sodium (Colace) 100 mg Q12H PRN PO CONSTIPATION Last administered on 10/18/18at 10:14; Admin Dose 100 MG; Start 10/15/18 at 12:00 Insulin Glargine (Lantus) 15 units DAILY@0800 SC Last administered on 10/18/18at 08:36; Admin Dose 15 UNITS; Start 10/16/18 at 08:00 Miscellaneous Information 1 ea NOTE XX ; Start 10/15/18 at 12:30 Glucose (Glutose) 15 gm Q15M PRN PO DECREASED GLUCOSE; Start 10/15/18 at 12:30 Glucose (Glutose) 22.5 gm Q15M PRN PO DECREASED GLUCOSE; Start 10/15/18 at 12:30 Dextrose (D50w Syringe) 25 ml Q15M PRN IV DECREASED GLUCOSE; Start 10/15/18 at 12:30 Dextrose (D50w Syringe) 50 ml Q15M PRN IV DECREASED GLUCOSE; Start 10/15/18 at 12:30 Glucagon (Glucagen) 1 mg Q15M PRN IM DECREASED GLUCOSE; Start 10/15/18 at 12:30 Glucose (Glutose) 15 gm Q15M PRN BUCCAL DECREASED GLUCOSE; Start 10/15/18 at 12:30 Insulin Aspart (Novolog Insulin Pen) NOVOLOG *MODERATE* ALGORITHM WITH MEALS BEDTIME SC Last administered on 10/17/18at 11:59; Admin Dose 2 UNIT; Start 10/15/18 at 12:00 Aluminum Hydroxide (Aluminum Hydroxide) 30 ml Q4H PRN PO GASTROINTESTINAL UPSET; Start 10/15/18 at 12:30 Aspirin (Halfprin) 81 mg DAILY PO Last administered on 10/18/18at 10:12; Admin Dose 81 MG; Start 10/16/18 at 09:00 Bumetanide (Bumex) 2 mg DAILY@0600 PO Last administered on 10/18/18at 05:46; A dmin Dose 2 MG; Start 10/16/18 at 06:00 Clopidogrel Bisulfate (plaVIX) 75 mg DAILY PO Last administered on 10/18/18at 10:13; Admin Dose 75 MG; Start 10/16/18 at 09:00 Enoxaparin Sodium (Lovenox) 40 mg DAILY SC Last administered on 10/18/18 10:18; Admin Dose 40 MG; Start 10/16/18 at 09:00 Famotidine (Pepcid) 20 mg AC BREAKFAST PO Last administered on 10/18/18 08:37; Admin Dose 20 MG; Start 10/16/18 at 07:05 Felodipine (Plendil) 2.5 mg DAILY PO Last administered on 10/18/18 10:12; Admin Dose 2.5 MG; Start 10/16/18 at 09:00 Guaifenesin/ Codeine Phosphate (Robitussin Ac Liquid Cup) 5 ml Q4H PRN PO cough; Start 10/15/18 at 12:30 Lidocaine (Lidoderm) 1 patch DAILY TD Last administered on 10/18/18 10:16; Admin Dose 1 PATCH; Start 10/16/18 at 09:00 Lorazepam (Ativan) 0.5 mg Q8H PRN PO ANXIETY Last administered on 10/18/18 10:12; Admin Dose 0.5 MG; Start 10/15/18 at 12:30 Magnesium Oxide (Mag-Ox 400) 400 mg DAILY PO Last administered on 10/18/18 10:13; Admin Dose 400 MG; Start 10/16/18 at 09:00 Metoprolol Tartrate (Lopressor) 25 mg BID PO Last administered on 10/18/18 10:14; Admin Dose 25 MG; Start 10/15/18 at 21:00 Oxycodone/ Acetaminophen (Percocet (5/ 325)) 1 tab Q4H PRN PO MODERATE to SEV PAIN; Start 10/15/18 at 12:30 Zolpidem Tartrate (Ambien) 5 mg HS PRN PO INSOMNIA; Start 10/15/18 at 12:30 Eye Lubricant (Artificial Tears Oph) 2 drop Q6H PRN BOTH EYES DRY EYES Last administered on 10/18/18 00:12; Admin Dose 2 DROP; Start 10/16/18 at 04:30 Ferric Sodium Gluconate Complex 125 mg/Sodium Chloride 110 ml @ 110 mls/hr DAILY@1300 IVPB Last administered on 10/18/18 13:54; Admin Dose 110 MLS/HR; Start 10/17/18 at 13:00; Stop 10/21/18 at 13:59 GENARO SEPULVEDA MD Oct 18, 2018 15:24
--- NOTE | 2018-10-18 17:31 | CONS ---
Assessment/Plan Assessment/Plan Assessment/Plan (Daily) Impression and Recs: # Multi lobar broncho pneumonia possible ARDS w component of possible acute diastolic HF # Non-ST elevation myocardial infarction s/p PCI with to LCx with HARITHA x 2 # Hypertension. # Type 2 diabetes. # Mild to moderate aortic stenosis. # Acute diastolic heart failure. # Gout. # Normocytic anemia. # Hyperlipidemia. # History of breast cancer. # Renal insufficiency resolved . # PAF- < 24hr while in ICU, no recurrence >> ASA daily, plavix x 12 months >> restart statin with normal LFTS >> low dose metoprolol >> when BP stable consider ARB given DM >> continue with rehab >> follow up in our office upon discharge Consultation Date/Type/Reason Admit Date/Time Oct 15, 2018 at 11:22 Initial Consult Date Type of Consult Cardiology Date/Time of Note DATE: 10/18/18 TIME: 17:28 24 HR Interval Summary Free Text/Dictation Patient transferred to Rehab and doing well. She has not had any CP and denies any sig't palpitations. She is doing her rehab and has been walking well. She has no lightheadedness. Exam/Review of Systems Vital Signs Vitals Vital Signs Date Temp Pulse Resp B/P (MAP) Pulse Ox O2 O2 Flow FiO2 Time Delivery Rate 10/18/18 97.5 75 20 107/54 97 Nasal 2.0 14:00 (71) Cannula Intake and Output 10/17/18 10/17/18 10/18/18 1515:00 23:00 07:00 IntakeIntake Total 1310 ml 1000 ml OutputOutput Total 800 ml BalanceBalance 510 ml 1000 ml Exam Constitutional: alert, oriented Psych: no complaints, nl mood/affect Head: normocephalic Eyes: nl conjunctiva ENMT: nl external ears & nose Neck: supple; No jvd Respiratory: clear to auscultation Cardiovascular: regular rate and rhythm; No edema, No S3 Gastrointestinal: soft, nl liver, spleen Neurological: SYSTEMS DEVELOPMENT CONSULTANT II-XII intact Skin: nl turgor Labs Result Diagram: 10/18/1838 10/18/1838 Results 24hrs Laboratory Tests Test 10/17/18 21:28 10/18/18 06:38 10/18/18 08:30 10/18/18 12:13 Bedside Glucose 146 136 138 White Blood Count 3.5 L Red Blood Count 3.24 L Hemoglobin 8.8 L Hematocrit 27.9 L Mean Corpuscular Volume 86.1 Mean Corpuscular 27.2 L Hemoglobin Mean Corpuscular 31.5 L Hemoglobin Concent Red Cell Distribution 13.7 Width Platelet Count 357 Mean Platelet Volume 10.9 H Immature Granulocytes % 0.300 Neutrophils % 43.1 Lymphocytes % 35.2 Monocytes % 12.7 H Eosinophils % 7.8 H Basophils % 0.9 Nucleated Red Blood 0.0 Cells % Immature Granulocytes # 0.010 Neutrophils # 1.5 L Lymphocytes # 1.2 Monocytes # 0.4 Eosinophils # 0.3 Basophils # 0.0 Nucleated Red Blood 0.0 Cells # Sodium Level 141 Potassium Level 4.9 Chloride Level 103 Carbon Dioxide Level 32 H Anion Gap 6 Blood Urea Nitrogen 22 H Creatinine 0.78 Est Glomerular Filtrat Rate mL/min Glucose Level 103 Calcium Level 9.7 Phosphorus Level 4.4 Magnesium Level 2.2 Total Bilirubin 0.3 Direct Bilirubin 0.00 Indirect Bilirubin 0.3 Aspartate Amino 31 Transf (AST/SGOT) Alanine 61 Aminotransferase (ALT/SG PT) Alkaline Phosphatase 109 Total Protein 6.3 Albumin 3.2 L Globulin 3.10 Albumin/Globulin Ratio 1.03 Medications Medications Current Medications Magnesium Hydroxide (Milk Of Mag) 30 ml BID PRN PO CONSTIPATION; Start 10/15/18 at 12:00 Lactulose (Enulose) 20 gm DAILY PRN PO CONSTIPATION; Start 10/15/18 at 12:00 Bisacodyl (Dulcolax Supp) 10 mg DAILY PRN [place] CONSTIPATION; Start 10/15/18 at 12:00 Acetaminophen (Tylenol Tab) 650 mg Q4H PRN PO PAIN Last administered on 10/18/18at 00:09; Admin Dose 650 MG; Start 10/15/18 at 12:00 Miscellaneous Information ([facility]) This patient salazar... PRN PRN XX WOUND CARE; Start 10/15/18 at 12:00 Docusate Sodium (Colace) 100 mg Q12H PRN PO CONSTIPATION Last administered on 10/18/18at 10:14; Admin Dose 100 MG; Start 10/15/18 at 12:00 Insulin Glargine (Lantus) 15 units DAILY@0800 SC Last administered on 7/6/19at 08:36; Admin Dose 15 UNITS; Start 10/16/18 at 08:00 Miscellaneous Information 1 ea NOTE XX ; Start 10/15/18 at 12:30 Glucose (Glutose) 15 gm Q15M PRN PO DECREASED GLUCOSE; Start 10/15/18 at 12:30 Glucose (Glutose) 22.5 gm Q15M PRN PO DECREASED GLUCOSE; Start 10/15/18 at 12:30 Dextrose (D50w Syringe) 25 ml Q15M PRN IV DECREASED GLUCOSE; Start 10/15/18 at 12:30 Dextrose (D50w Syringe) 50 ml Q15M PRN IV DECREASED GLUCOSE; Start 10/15/18 at 12:30 Glucagon (Glucagen) 1 mg Q15M PRN IM DECREASED GLUCOSE; Start 10/15/18 at 12:30 Glucose (Glutose) 15 gm Q15M PRN BUCCAL DECREASED GLUCOSE; Start 10/15/18 at 12:30 Insulin Aspart (Novolog Insulin Pen) NOVOLOG *MODERATE* ALGORITHM WITH MEALS BEDTIME SC Last administered on 10/17/18 11:59; Admin Dose 2 UNIT; Start 10/15/18 at 12:00 Aluminum Hydroxide (Aluminum Hydroxide) 30 ml Q4H PRN PO GASTROINTESTINAL UPSET; Start 10/15/18 at 12:30 Aspirin (Halfprin) 81 mg DAILY PO Last administered on 10/18/18 10:12; Admin Dose 81 MG; Start 10/16/18 at 09:00 Bumetanide (Bumex) 2 mg DAILY@0600 PO Last administered on 10/18/18 05:46; Admin Dose 2 MG; Start 10/16/18 at 06:00 Clopidogrel Bisulfate (plaVIX) 75 mg DAILY PO Last administered on 10/18/18 10:13; Admin Dose 75 MG; Start 10/16/18 at 09:00 Enoxaparin Sodium (Lovenox) 40 mg DAILY SC Last administered on 10/18/18 10:18; Admin Dose 40 MG; Start 10/16/18 at 09:00 Famotidine (Pepcid) 20 mg AC BREAKFAST PO Last administered on 10/18/18 08:37; Admin Dose 20 MG; Start 10/16/18 at 07:05 Felodipine (Plendil) 2.5 mg DAILY PO Last administered on 10/18/18 10:12; Admin Dose 2.5 MG; Start 10/16/18 at 09:00 Guaifenesin/ Codeine Phosphate (Robitussin Ac Liquid Cup) 5 ml Q4H PRN PO cough; Start 10/15/18 at 12:30 Lidocaine (Lidoderm) 1 patch DAILY TD Last administered on 10/18/18 10:16; Admin Dose 1 PATCH; Start 10/16/18 at 09:00 Lorazepam (Ativan) 0.5 mg Q8H PRN PO ANXIETY Last administered on 10/18/18 10:12; Admin Dose 0.5 MG; Start 10/15/18 at 12:30 Magnesium Oxide (Mag-Ox 400) 400 mg DAILY PO Last administered on 10/18/18 10:13; Admin Dose 400 MG; Start 10/16/18 at 09:00 Metoprolol Tartrate (Lopressor) 25 mg BID PO Last administered on 10/18/18 10:14; Admin Dose 25 MG; Start 10/15/18 at 21:00 Oxycodone/ Acetaminophen (Percocet (5/ 325)) 1 tab Q4H PRN PO MODERATE to SEV PAIN; Start 10/15/18 at 12:30 Zolpidem Tartrate (Ambien) 5 mg HS PRN PO INSOMNIA; Start 10/15/18 at 12:30 Eye Lubricant (Artificial Tears Oph) 2 drop Q6H PRN BOTH EYES DRY EYES Last administered on 10/18/18 00:12; Admin Dose 2 DROP; Start 10/16/18 at 04:30 Ferric Sodium Gluconate Complex 125 mg/Sodium Chloride 110 ml @ 110 mls/hr DAILY@1300 IVPB Last administered on 10/18/18 13:54; Admin Dose 110 MLS/HR; Start 10/17/18 at 13:00; Stop 10/21/18 at 13:59 NAINA MANN MD Oct 18, 2018 17:31
[2018-10-18 19:49] VITALS: BP 130/62; PULSE 79; RESP 18
[2018-10-18] MEDS: ATORVASTATIN 20 MG TAB PO SCH (20:11)
[2018-10-19] MEDS: ACETAMINOPHEN 325 MG TAB PO PRN (00:41)
[2018-10-19 02:00] VITALS: BP 134/65; PULSE 85; RESP 18
[2018-10-19] MEDS: BUMETANIDE 1 MG TAB PO SCH (06:15)
[2018-10-19] MEDS: FAMOTIDINE 20 MG TAB PO SCH (06:25)
[2018-10-19] MEDS: INSULIN ASPART [NOVOLOG] 3 ML PEN SC SCH ×4 (07:35→21:02)
[2018-10-19 07:50] VITALS: BP 156/70; PULSE 78; RESP 20
[2018-10-19] MEDS: INSULIN GLARGINE [LANTus] (100 UNITS/ML) SYG SC SCH (08:28)
[2018-10-19] MEDS: LIDOCAINE 5% PATCH TD SCH (10:10)
[2018-10-19] MEDS: MAGNESIUM OXIDE 400 MG TAB PO SCH (10:10)
[2018-10-19] MEDS: ASPIRIN (EC) 81 MG TAB PO SCH (10:11)
[2018-10-19] MEDS: METOPROLOL 25 MG TAB PO SCH ×2 (10:11→21:01)
[2018-10-19] MEDS: ENOXAPARIN 40 MG/0.4 ML SYG SC SCH (10:17)
[2018-10-19] MEDS: ARTIFICIAL TEARS 15 ML OPH BOTH EYES PRN ×2 (10:22→21:17)
[2018-10-19] MEDS: LORAZEPAM 0.5 MG TAB PO PRN (11:00)
[2018-10-19] MEDS: CLOPIDOGREL 75 MG TAB PO SCH (11:01)
[2018-10-19] MEDS: FELODIPINE (ER) 2.5 MG TAB PO SCH (11:01)
--- NOTE | 2018-10-19 13:12 | CONS ---
Assessment/Plan Assessment/Plan Hospital Course (Demo Recall) 1. 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 She is overall doing much better. She is now up walking with a walker. She says she feels a little "wobbly". Her blood pressure is being monitored both sitting and standing and seems acceptable. 2. History of diastolic congestive heart failure. Now well compensated. 3. Pneumonia. Has resolved 4. Hypertension. Controlled 5. Type 2 diabetes mellitus. Controlled 6. Anemia of chronic disease 7. Rash on sacrum and left buttocks. Wound care nurse thinks that it may be herpes zoster. Patient denies pain. Rashes being covered with Allevyn 8. She complains of constipation. I will add some more stool softener. Consultation Date/Type/Reason Admit Date/Time Oct 15, 2018 at 11:22 Initial Consult Date Date/Time of Note DATE: 10/19/18 TIME: 13:09 24 HR Interval Summary Free Text/Dictation This patient is being seen in medical follow-up. She is sitting up eating lunch. She complains of right shoulder pain.. She denies chest pain or shortness of breath. Constitutional: no complaints, improved Exam/Review of Systems Exam Vitals Vital Signs Date Temp Pulse Resp B/P (MAP) Pulse Ox O2 O2 Flow FiO2 Time Delivery Rate 10/19/18 97.8 78 20 156/70 97 Room Air 07:50 (98) 10/19/18 2.0 02:00 Intake and Output 10/18/18 10/18/18 10/19/18 1515:00 23:00 07:00 IntakeIntake Total 1070 ml 1050 ml BalanceBalance 1070 ml 1050 ml Constitutional: alert, oriented, frail Respiratory: clear to auscultation, normal air movement Cardiovascular: regular rate and rhythm Gastrointestinal: soft, non-tender Musculoskeletal: nl extremities to inspection Results Result Diagram: 10/18/18 0638 10/18/18 0638 Results 24hrs Laboratory Tests Test 10/18/18 17:33 10/18/18 20:08 10/19/18 02:14 10/19/18 08:15 Bedside Glucose 125 245 H 127 114 Test 10/19/18 11:49 Bedside Glucose 159 Medications Medication Current Medications Magnesium Hydroxide (Milk Of Mag) 30 ml BID PRN PO CONSTIPATION Last administered on 10/19/18at 06:25; Admin Dose 30 ML; Start 10/15/18 at 12:00 Lactulose (Enulose) 20 gm DAILY PRN PO CONSTIPATION; Start 10/15/18 at 12:00 Bisacodyl (Dulcolax Supp) 10 mg DAILY PRN [place] CONSTIPATION; Start 10/15/18 at 12:00 Acetaminophen (Tylenol Tab) 650 mg Q4H PRN PO PAIN Last administered on 10/19/18at 00:41; Admin Dose 650 MG; Start 10/15/18 at 12:00 [facility]isc[facility] This patient salazar... PRN PRN XX WOUND CARE; Start 10/15/18 at 12:00 Docusate Sodium (Colace) 100 mg Q12H PRN PO CONSTIPATION Last administered on 10/18/18at 10:14; Admin Dose 100 MG; Start 10/15/18 at 12:00 Insulin Glargine (Lantus) 15 units DAILY@0800 SC Last administered on 10/19/18at 08:28; Admin Dose 15 UNITS; Start 10/16/18 at 08:00 Miscellaneous Information 1 ea NOTE XX ; Start 10/15/18 at 12:30 Glucose (Glutose) 15 gm Q15M PRN PO DECREASED GLUCOSE; Start 10/15/18 at 12:30 Glucose (Glutose) 22.5 gm Q15M PRN PO DECREASED GLUCOSE; Start 10/15/18 at 12:30 Dextrose (D50w Syringe) 25 ml Q15M PRN IV DECREASED GLUCOSE; Start 10/15/18 at 12:30 Dextrose (D50w Syringe) 50 ml Q15M PRN IV DECREASED GLUCOSE; Start 10/15/18 at 12:30 Glucagon (Glucagen) 1 mg Q15M PRN IM DECREASED GLUCOSE; Start 10/15/18 at 12:30 Glucose (Glutose) 15 gm Q15M PRN BUCCAL DECREASED GLUCOSE; Start 10/15/18 at 12:30 Insulin Aspart (Novolog Insulin Pen) NOVOLOG *MODERATE* ALGORITHM WITH MEALS BEDTIME SC Last administered on 10/19/18at 12:29; Admin Dose 2 UNIT; Start 10/15/18 at 12:00 Aluminum Hydroxide (Aluminum Hydroxide) 30 ml Q4H PRN PO GASTROINTESTINAL UPSET; Start 10/15/18 at 12:30 Aspirin (Halfprin) 81 mg DAILY PO Last administered on 10/19/18 10:11; Admin Dose 81 MG; Start 10/16/18 at 09:00 Bumetanide (Bumex) 2 mg DAILY@0600 PO Last administered on 10/19/18 06:15; A dmin Dose 2 MG; Start 10/16/18 at 06:00 Clopidogrel Bisulfate (plaVIX) 75 mg DAILY PO Last administered on 10/19/18 11:01; Admin Dose 75 MG; Start 10/16/18 at 09:00 Enoxaparin Sodium (Lovenox) 40 mg DAILY SC Last administered on 10/19/18 10:17; Admin Dose 40 MG; Start 10/16/18 at 09:00 Famotidine (Pepcid) 20 mg AC BREAKFAST PO Last administered on 10/19/18 06:25; Admin Dose 20 MG; Start 10/16/18 at 07:05 Felodipine (Plendil) 2.5 mg DAILY PO Last administered on 10/19/18 11:01; Admin Dose 2.5 MG; Start 10/16/18 at 09:00 Guaifenesin/ Codeine Phosphate (Robitussin Ac Liquid Cup) 5 ml Q4H PRN PO cough; Start 10/15/18 at 12:30 Lidocaine (Lidoderm) 1 patch DAILY TD Last administered on 10/19/18 10:10; Admin Dose 1 PATCH; Start 10/16/18 at 09:00 Lorazepam (Ativan) 0.5 mg Q8H PRN PO ANXIETY Last administered on 10/19/18 11:00; Admin Dose 0.5 MG; Start 10/15/18 at 12:30 Magnesium Oxide (Mag-Ox 400) 400 mg DAILY PO Last administered on 10/19/18 10:10; Admin Dose 400 MG; Start 10/16/18 at 09:00 Metoprolol Tartrate (Lopressor) 25 mg BID PO Last administered on 10/19/18 10:11; Admin Dose 25 MG; Start 10/15/18 at 21:00 Oxycodone/ Acetaminophen (Percocet (5/ 325)) 1 tab Q4H PRN PO MODERATE to SEV PAIN; Start 10/15/18 at 12:30 Zolpidem Tartrate (Ambien) 5 mg HS PRN PO INSOMNIA; Start 10/15/18 at 12:30 Eye Lubricant (Artificial Tears Oph) 2 drop Q6H PRN BOTH EYES DRY EYES Last administered on 10/19/18at 10:22; Admin Dose 2 DROP; Start 10/16/18 at 04:30 Ferric Sodium Gluconate Complex 125 mg/Sodium Chloride 110 ml @ 110 mls/hr DAILY@1300 IVPB Last administered on 10/18/18at 13:54; Admin Dose 110 MLS/HR; Start 10/17/18 at 13:00; Stop 10/21/18 at 13:59 Atorvastatin Calcium (Lipitor) 20 mg HS PO Last administered on 10/18/18at 20:11; Admin Dose 20 MG; Start 10/18/18 at 21:00 GENARO SEPULVEDA MD Oct 19, 2018 13:12
[2018-10-19] MEDS: SOD FERRIC GLUC COMPLX 125 MG in SOD CHLORIDE 0.9% 100 ML IVPB SCH (13:51)
[2018-10-19 14:00] VITALS: BP 129/69; PULSE 79; RESP 18
[2018-10-19 20:00] VITALS: BP 136/65; PULSE 75; RESP 18
[2018-10-19] MEDS: ATORVASTATIN 20 MG TAB PO SCH (21:00)
[2018-10-19] MEDS: DOCUSATE SODIUM 100 MG CAP PO SCH (21:17)
[2018-10-19] MEDS: ZOLPIDEM 5 MG TAB PO PRN (22:58)
[2018-10-20] MEDS ORDERED: DOCUSATE SODIUM 100 MG CAP PO SCH
[2018-10-20 02:19] VITALS: BP 138/66; PULSE 75; RESP 18
[2018-10-20] MEDS: FAMOTIDINE 20 MG TAB PO SCH (06:49)
[2018-10-20] MEDS: BUMETANIDE 1 MG TAB PO SCH (06:50)
[2018-10-20 07:00] VITALS: BP 148/72; PULSE 81; RESP 18
[2018-10-20] MEDS: INSULIN ASPART [NOVOLOG] 3 ML PEN SC SCH ×4 (07:35→21:00)
[2018-10-20] MEDS: INSULIN GLARGINE [LANTus] (100 UNITS/ML) SYG SC SCH (08:12)
--- NOTE | 2018-10-20 09:16 | CONS ---
Assessment/Plan Assessment/Plan Hospital Course (Demo Recall) 1. 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 She is overall doing much better. She is now up walking with a walker. Her blood pressure is being monitored both sitting and standing and seems acceptable. 2. History of diastolic congestive heart failure. Now well compensated. Chest x-ray ordered for today 3. Pneumonia. Has resolved 4. Hypertension. Controlled 5. Type 2 diabetes mellitus. Controlled 6. Anemia of chronic disease 7. Rash on sacrum and left buttocks. Wound care nurse thinks that it may be herpes zoster. Patient denies pain. Rashes being covered with Allevyn 8. She complains of constipation. I will add some more stool softener. She feels like she needs to have a BM this morning. Consultation Date/Type/Reason Admit Date/Time Oct 15, 2018 at 11:22 Initial Consult Date Date/Time of Note DATE: 10/20/18 TIME: 09:14 24 HR Interval Summary Free Text/Dictation This patient is being seen in medical follow-up. She is awake and alert. She denies chest pain or shortness of breath. Constitutional: no complaints, improved Exam/Review of Systems Exam Vitals Vital Signs Date Temp Pulse Resp B/P (MAP) Pulse Ox O2 O2 Flow FiO2 Time Delivery Rate 10/20/18 97.8 75 18 138/66 93 Room Air 02:19 (90) 10/19/18 2.0 02:00 Intake and Output 10/19/18 10/19/18 10/20/18 1515:00 23:00 07:00 IntakeIntake Total 110 ml 800 ml 100 ml BalanceBalance 110 ml 800 ml 100 ml Constitutional: alert, oriented, frail Respiratory: clear to auscultation, normal air movement Cardiovascular: regular rate and rhythm Gastrointestinal: soft, non-tender Musculoskeletal: nl extremities to inspection Results Result Diagram: 10/18/18 0638 10/18/18 0638 Results 24hrs Laboratory Tests Test 10/19/18 11:49 10/19/18 17:35 10/19/18 21:01 10/20/18 02:01 Bedside Glucose 159 135 192 110 Test 10/20/18 08:10 Bedside Glucose 115 Medications Medication Current Medications Magnesium Hydroxide (Milk Of Mag) 30 ml BID PRN PO CONSTIPATION Last administered on 10/19/18at 06:25; Admin Dose 30 ML; Start 10/15/18 at 12:00 Bisacodyl (Dulcolax Supp) 10 mg DAILY PRN [place] CONSTIPATION; Start 10/15/18 at 12:00 Acetaminophen (Tylenol Tab) 650 mg Q4H PRN PO PAIN Last administered on 10/19/18at 00:41; Admin Dose 650 MG; Start 10/15/18 at 12:00 Miscellaneous Information [facility] This patient salazar... PRN PRN XX WOUND CARE; Start 10/15/18 at 12:00 Insulin Glargine (Lantus) 15 units DAILY@0800 SC Last administered on 10/20/18at 08:12; Admin Dose 15 UNITS; Start 10/16/18 at 08:00 Miscellaneous Information 1 ea NOTE XX ; Start 10/15/18 at 12:30 Glucose (Glutose) 15 gm Q15M PRN PO DECREASED GLUCOSE; Start 10/15/18 at 12:30 Glucose (Glutose) 22.5 gm Q15M PRN PO DECREASED GLUCOSE; Start 10/15/18 at 12:30 Dextrose (D50w Syringe) 25 ml Q15M PRN IV DECREASED GLUCOSE; Start 10/15/18 at 12:30 Dextrose (D50w Syringe) 50 ml Q15M PRN IV DECREASED GLUCOSE; Start 10/15/18 at 12:30 Glucagon (Glucagen) 1 mg Q15M PRN IM DECREASED GLUCOSE; Start 10/15/18 at 12:30 Glucose (Glutose) 15 gm Q15M PRN BUCCAL DECREASED GLUCOSE; Start 10/15/18 at 12:30 Insulin Aspart (Novolog Insulin Pen) NOVOLOG *MODERATE* ALGORITHM WITH MEALS BEDTIME SC Last administered on 10/19/18at 21:02; Admin Dose 1 UNIT; Start 10/15/18 at 12:00 Aluminum Hydroxide (Aluminum Hydroxide) 30 ml Q4H PRN PO GASTROINTESTINAL UPSET; Start 10/15/18 at 12:30 Aspirin (Halfprin) 81 mg DAILY PO Last administered on 10/19/18at 10:11; Admin Dose 81 MG; Start 10/16/18 at 09:00 Bumetanide (Bumex) 2 mg DAILY@0600 PO Last administered on 10/20/18at 06:50; Admin Dose 2 MG; Start 10/16/18 at 06:00 Clopidogrel Bisulfate (plaVIX) 75 mg DAILY PO Last administered on 10/19/18 11:01; Admin Dose 75 MG; Start 10/16/18 at 09:00 Enoxaparin Sodium (Lovenox) 40 mg DAILY SC Last administered on 10/19/18 10:17; Admin Dose 40 MG; Start 10/16/18 at 09:00 Famotidine (Pepcid) 20 mg AC BREAKFAST PO Last administered on 10/20/18 06:49; Admin Dose 20 MG; Start 10/16/18 at 07:05 Felodipine (Plendil) 2.5 mg DAILY PO Last administered on 10/19/18 11:01; Admin Dose 2.5 MG; Start 10/16/18 at 09:00 Guaifenesin/ Codeine Phosphate (Robitussin Ac Liquid Cup) 5 ml Q4H PRN PO cough; Start 10/15/18 at 12:30 Lidocaine (Lidoderm) 1 patch DAILY TD Last administered on 10/19/18 10:10; Admi n Dose 1 PATCH; Start 10/16/18 at 09:00 Lorazepam (Ativan) 0.5 mg Q8H PRN PO ANXIETY Last administered on 10/19/18 11:00; Admin Dose 0.5 MG; Start 10/15/18 at 12:30 Magnesium Oxide (Mag-Ox 400) 400 mg DAILY PO Last administered on 10/19/18 10:10; Admin Dose 400 MG; Start 10/16/18 at 09:00 Metoprolol Tartrate (Lopressor) 25 mg BID PO Last administered on 10/19/18 21:01; Admin Dose 25 MG; Start 10/15/18 at 21:00 Oxycodone/ Acetaminophen (Percocet (5/ 325)) 1 tab Q4H PRN PO MODERATE to SEV PAIN; Start 10/15/18 at 12:30 Zolpidem Tartrate (Ambien) 5 mg HS PRN PO INSOMNIA Last administered on 10/19/18 at 22:58; Admin Dose 5 MG; Start 10/15/18 at 12:30 Eye Lubricant (Artificial Tears Oph) 2 drop Q6H PRN BOTH EYES DRY EYES Last administered on 10/19/18 21:17; Admin Dose 2 DROP; Start 10/16/18 at 04:30 Ferric Sodium Gluconate Complex 125 mg/Sodium Chloride 110 ml @ 110 mls/hr DAILY@1300 IVPB Last administered on 10/19/18at 13:51; Admin Dose 110 MLS/HR; Start 10/17/18 at 13:00; Stop 10/21/18 at 13:59 Atorvastatin Calcium (Lipitor) 20 mg HS PO Last administered on 10/19/18at 21:00; Admin Dose 20 MG; Start 10/18/18 at 21:00 Lactulose (Enulose) 20 gm DAILY PO ; Start 10/20/18 at 09:00 Docusate Sodium (Colace) 100 mg Q12H PO Last administered on 10/19/18at 21:17; Admin Dose 100 MG; Start 10/19/18 at 21:00 GENARO SEPULVEDA MD Oct 20, 2018 09:16
[2018-10-20] MEDS: ASPIRIN (EC) 81 MG TAB PO SCH (09:32)
[2018-10-20] MEDS: LIDOCAINE 5% PATCH TD SCH (09:32)
[2018-10-20] MEDS: CLOPIDOGREL 75 MG TAB PO SCH (09:32)
[2018-10-20] MEDS: METOPROLOL 25 MG TAB PO SCH ×2 (09:33→21:19)
[2018-10-20] MEDS: MAGNESIUM OXIDE 400 MG TAB PO SCH (09:33)
[2018-10-20] MEDS: FELODIPINE (ER) 2.5 MG TAB PO SCH (09:33)
[2018-10-20] MEDS: ENOXAPARIN 40 MG/0.4 ML SYG SC SCH (09:35)
[2018-10-20] MEDS: DOCUSATE SODIUM 100 MG CAP PO SCH ×2 (09:37→21:17)
[2018-10-20] MEDS: LACTULOSE 30ML CUP PO SCH (09:37)
[2018-10-20] MEDS: SOD FERRIC GLUC COMPLX 125 MG in SOD CHLORIDE 0.9% 100 ML IVPB SCH (12:40)
[2018-10-20 14:00] VITALS: BP 146/76; PULSE 80; RESP 18
--- NOTE | 2018-10-20 14:29 | PN ---
Date/Time of Note Date/Time of Note DATE: 10/20/18 TIME: 14:28 Objective Vital Signs Date Temp Pulse Resp B/P (MAP) Pulse Ox O2 O2 Flow FiO2 Time Delivery Rate 10/20/18 98.1 81 18 148/72 94 Room Air 07:00 (97) 10/19/18 2.0 02:00 Intake and Output 10/19/18 10/19/18 10/20/18 1515:00 23:00 07:00 IntakeIntake Total 110 ml 800 ml 100 ml BalanceBalance 110 ml 800 ml 100 ml Exam INTERDISCIPLINARY TEAM CONFERENCE Attended by PT, OT, ST, Graves Registration Specialist, Social Work, Rehabilitation Nursing, Lead Atg Developer and Research DirectorResource Paraprofessional Exam: Pulm- Abd- BOWEL- Cont BLADDER-Cont SKIN- intact OT- DRESSING- cga BATHING-cga TOILETING-cga PT- BED MOBILITY- sba TRANSFERS-sba AMBULATION- sba 200 feet A/P- Interdisciplinary team conference held today. Please see interdisciplinary sheet. Working toward d.c. on 10/23 with post discharge follow up of physical therapy, occupational therapy. Results/Medications Result Diagram: 10/18/18 0638 10/18/18 0638 Results 24 hrs Laboratory Tests Test 10/19/18 17:35 10/19/18 21:01 10/20/18 02:01 10/20/18 08:10 Bedside Glucose 135 192 110 115 Test 10/20/18 12:05 Bedside Glucose 130 Medications Current Medications Magnesium Hydroxide (Milk Of Mag) 30 ml BID PRN PO CONSTIPATION Last administe red on 10/19/18at 06:25; Admin Dose 30 ML; Start 10/15/18 at 12:00 Bisacodyl (Dulcolax Supp) 10 mg DAILY PRN [place] CONSTIPATION; Start 10/15/18 at 12:00 Acetaminophen (Tylenol Tab) 650 mg Q4H PRN PO PAIN Last administered on 10/19/18at 00:41; Admin Dose 650 MG; Start 10/15/18 at 12:00 Miscellaneous Information ([facility] This patient salazar... PRN PRN XX WOUND CARE; Start 10/15/18 at 12:00 Insulin Glargine (Lantus) 15 units DAILY@0800 SC Last administered on 10/20/18at 08:12; Admin Dose 15 UNITS; Start 10/16/18 at 08:00 Miscellaneous Information 1 ea NOTE XX ; Start 10/15/18 at 12:30 Glucose (Glutose) 15 gm Q15M PRN PO DECREASED GLUCOSE; Start 10/15/18 at 12:30 Glucose (Glutose) 22.5 gm Q15M PRN PO DECREASED GLUCOSE; Start 10/15/18 at 12:30 Dextrose (D50w Syringe) 25 ml Q15M PRN IV DECREASED GLUCOSE; Start 10/15/18 at 12:30 Dextrose (D50w Syringe) 50 ml Q15M PRN IV DECREASED GLUCOSE; Start 10/15/18 at 12:30 Glucagon (Glucagen) 1 mg Q15M PRN IM DECREASED GLUCOSE; Start 10/15/18 at 12:30 Glucose (Glutose) 15 gm Q15M PRN BUCCAL DECREASED GLUCOSE; Start 10/15/18 at 12:30 Insulin Aspart (Novolog Insulin Pen) NOVOLOG *MODERATE* ALGORITHM WITH MEALS BEDTIME SC Last administered on 10/19/18 21:02; Admin Dose 1 UNIT; Start 10/15/18 at 12:00 Aluminum Hydroxide (Aluminum Hydroxide) 30 ml Q4H PRN PO GASTROINTESTINAL UPSET; Start 10/15/18 at 12:30 Aspirin (Halfprin) 81 mg DAILY PO Last administered on 10/20/18 09:32; Admin Dose 81 MG; Start 10/16/18 at 09:00 Bumetanide (Bumex) 2 mg DAILY@0600 PO Last administered on 10/20/18 06:50; Admin Dose 2 MG; Start 10/16/18 at 06:00 Clopidogrel Bisulfate (plaVIX) 75 mg DAILY PO Last administered on 10/20/18 09:32; Admin Dose 75 MG; Start 10/16/18 at 09:00 Enoxaparin Sodium (Lovenox) 40 mg DAILY SC Last administered on 10/20/18 09:35; Admin Dose 40 MG; Start 10/16/18 at 09:00 Famotidine (Pepcid) 20 mg AC BREAKFAST PO Last administered on 10/20/18 06:49; Admin Dose 20 MG; Start 10/16/18 at 07:05 Felodipine (Plendil) 2.5 mg DAILY PO Last administered on 10/20/18 09:33; Admin Dose 2.5 MG; Start 10/16/18 at 09:00 Guaifenesin/ Codeine Phosphate (Robitussin Ac Liquid Cup) 5 ml Q4H PRN PO cough; Start 10/15/18 at 12:30 Lidocaine (Lidoderm) 1 patch DAILY TD Last administered on 10/20/18 09:32; Admin Dose 1 PATCH; Start 10/16/18 at 09:00 Lorazepam (Ativan) 0.5 mg Q8H PRN PO ANXIETY Last administered on 10/19/18 11:00; Admin Dose 0.5 MG; Start 10/15/18 at 12:30 Magnesium Oxide (Mag-Ox 400) 400 mg DAILY PO Last administered on 10/20/18 09:33; Admin Dose 400 MG; Start 10/16/18 at 09:00 Metoprolol Tartrate (Lopressor) 25 mg BID PO Last administered on 10/20/18 09:33; Admin Dose 25 MG; Start 10/15/18 at 21:00 Oxycodone/ Acetaminophen (Percocet (5/ 325)) 1 tab Q4H PRN PO MODERATE to SEV PAIN; Start 10/15/18 at 12:30 Zolpidem Tartrate (Ambien) 5 mg HS PRN PO INSOMNIA Last administered on 10/19/18 22:58; Admin Dose 5 MG; Start 10/15/18 at 12:30 Eye Lubricant (Artificial Tears Oph) 2 drop Q6H PRN BOTH EYES DRY EYES Last adm inistered on 10/19/18 21:17; Admin Dose 2 DROP; Start 10/16/18 at 04:30 Ferric Sodium Gluconate Complex 125 mg/Sodium Chloride 110 ml @ 110 mls/hr DAILY@1300 IVPB Last administered on 10/20/18 12:40; Admin Dose 110 MLS/HR; Start 10/17/18 at 13:00; Stop 10/21/18 at 13:59 Atorvastatin Calcium (Lipitor) 20 mg HS PO Last administered on 10/19/18 21:00; Admin Dose 20 MG; Start 10/18/18 at 21:00 Lactulose (Enulose) 20 gm DAILY PO Last administered on 10/20/18 09:37; Admin Dose 20 GM; Start 10/20/18 at 09:00 Docusate Sodium (Colace) 100 mg Q12H PO Last administered on 10/20/18at 09:37; Admin Dose 100 MG; Start 10/19/18 at 21:00 DEYSI ANNA MD Oct 20, 2018 14:29
[2018-10-20 20:00] VITALS: BP 137/60; PULSE 87; RESP 18
[2018-10-20] MEDS: ARTIFICIAL TEARS 15 ML OPH BOTH EYES PRN (21:18)
[2018-10-20] MEDS: ATORVASTATIN 20 MG TAB PO SCH (21:18)
[2018-10-21 02:08] VITALS: BP 129/66; PULSE 76; RESP 18
[2018-10-21] MEDS: FAMOTIDINE 20 MG TAB PO SCH (06:25)
[2018-10-21] MEDS: BUMETANIDE 1 MG TAB PO SCH (06:25)
[2018-10-21 07:30] VITALS: BP 150/68; PULSE 98; RESP 18
[2018-10-21] MEDS: INSULIN ASPART [NOVOLOG] 3 ML PEN SC SCH ×4 (07:35→20:55)
[2018-10-21 08:00] VITALS: BP 132/73; PULSE 91; RESP 19
[2018-10-21] MEDS: INSULIN GLARGINE [LANTus] (100 UNITS/ML) SYG SC SCH (08:00)
--- NOTE | 2018-10-21 08:24 | CONS ---
Assessment/Plan Assessment/Plan Hospital Course (Demo Recall) 1. 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 She is overall doing much better. She is now up walking with a walker. Her blood pressure is being monitored both sitting and standing and seems acceptable. She is now on the acute rehab unit. 2. History of diastolic congestive heart failure. Now well compensated. Chest x-ray done yesterday shows improvement. 3. Pneumonia. Has resolved 4. Hypertension. Controlled 5. Type 2 diabetes mellitus. I am going to try her back on her oral diabetic medication. 6. Anemia of chronic disease 7. Rash on sacrum and left buttocks. Wound care nurse thinks that it may be herpes zoster. Patient denies pain. Rashes being covered with Allevyn 8. She complains of constipation. I will add some more stool softener. Consultation Date/Type/Reason Admit Date/Time Oct 15, 2018 at 11:22 Initial Consult Date Type of Consult Nephrology Date/Time of Note DATE: 10/21/18 TIME: 08:18 24 HR Interval Summary Free Text/Dictation This patient is being seen in medical consultation. She is awake and alert. She has no new complaints. She is working with occupational therapy. Constitutional: no complaints, improved Exam/Review of Systems Exam Vitals Vital Signs Date Temp Pulse Resp B/P (MAP) Pulse Ox O2 O2 Flow FiO2 Time Delivery Rate 10/21/18 97.8 76 18 129/66 99 Room Air 02:08 (87) 10/19/18 2.0 02:00 Intake and Output 10/20/18 10/20/18 10/21/18 1414:59 22:59 06:59 IntakeIntake Total 1410 ml 100 ml OutputOutput Total 800 ml BalanceBalance 610 ml 100 ml Constitutional: alert, oriented, frail Neck: supple Respiratory: clear to auscultation, normal air movement Cardiovascular: regular rate and rhythm, murmurs/extra sounds Gastrointestinal: soft, non-tender Musculoskeletal: nl extremities to inspection Results Result Diagram: 10/21/18 0619 10/21/18 0619 Results 24hrs Laboratory Tests Test 10/20/18 12:05 10/20/18 17:20 10/20/18 21:21 10/21/18 06:19 Bedside Glucose 130 159 167 White Blood Count 4.2 L Red Blood Count 3.40 L Hemoglobin 9.5 L Hematocrit 29.3 L Mean Corpuscular Volume 86.2 Mean Corpuscular 27.9 L Hemoglobin Mean Corpuscular 32.4 Hemoglobin Concent Red Cell Distribution 14.3 Width Platelet Count 316 Mean Platelet Volume 10.7 H Immature Granulocytes % 0.700 H Neutrophils % 44.9 Lymphocytes % 36.6 Monocytes % 11.6 H Eosinophils % 5.7 Basophils % 0.5 Nucleated Red Blood 0.0 Cells % Immature Granulocytes # 0.030 Neutrophils # 1.9 Lymphocytes # 1.6 Monocytes # 0.5 Eosinophils # 0.2 Basophils # 0.0 Nucleated Red Blood 0.0 Cells # Sodium Level 141 Potassium Level 4.2 Chloride Level 102 Carbon Dioxide Level 31 Anion Gap 8 Blood Urea Nitrogen 24 H Creatinine 0.92 Est Glomerular Filtrat Rate mL/min Glucose Level 122 Calcium Level 9.9 Phosphorus Level 4.1 Magnesium Level 2.1 Total Bilirubin 0.4 Direct Bilirubin 0.00 Indirect Bilirubin 0.4 Aspartate Amino 27 Transf (AST/SGOT) Alanine 40 Aminotransferase (ALT/SG PT) Alkaline Phosphatase 112 Total Protein 6.9 Albumin 3.6 Globulin 3.30 H Albumin/Globulin Ratio 1.09 Test 10/21/18 08:07 Bedside Glucose 130 Medications Medication Current Medications Magnesium Hydroxide (Milk Of Mag) 30 ml BID PRN PO CONSTIPATION Last admini stered on 10/19/18at 06:25; Admin Dose 30 ML; Start 10/15/18 at 12:00 Bisacodyl (Dulcolax Supp) 10 mg DAILY PRN [place] CONSTIPATION; Start 10/15/18 at 12:00 Acetaminophen (Tylenol Tab) 650 mg Q4H PRN PO PAIN Last administered on 10/19/18at 00:41; Admin Dose 650 MG; Start 10/15/18 at 12:00 Miscellaneous Information (Pending [facility] Order For Wound Care) This patient salazar... PRN PRN XX WOUND CARE; Start 10/15/18 at 12:00 Insulin Glargine (Lantus) 15 units DAILY@0800 SC Last administered on 10/20/18at 08:12; Admin Dose 15 UNITS; Start 10/16/18 at 08:00 Miscellaneous Information 1 ea NOTE XX ; Start 10/15/18 at 12:30 Glucose (Glutose) 15 gm Q15M PRN PO DECREASED GLUCOSE; Start 10/15/18 at 12:30 Glucose (Glutose) 22.5 gm Q15M PRN PO DECREASED GLUCOSE; Start 10/15/18 at 12:30 Dextrose (D50w Syringe) 25 ml Q15M PRN IV DECREASED GLUCOSE; Start 10/15/18 at 12:30 Dextrose (D50w Syringe) 50 ml Q15M PRN IV DECREASED GLUCOSE; Start 10/15/18 at 12:30 Glucagon (Glucagen) 1 mg Q15M PRN IM DECREASED GLUCOSE; Start 10/15/18 at 12:30 Glucose (Glutose) 15 gm Q15M PRN BUCCAL DECREASED GLUCOSE; Start 10/15/18 at 12:30 Insulin Aspart (Novolog Insulin Pen) NOVOLOG *MODERATE* ALGORITHM WITH MEALS BEDTIME SC Last administered on 10/20/18 17:22; Admin Dose 2 UNIT; Start 10/15/18 at 12:00 Aluminum Hydroxide (Aluminum Hydroxide) 30 ml Q4H PRN PO GASTROINTESTINAL UPSET; Start 10/15/18 at 12:30 Aspirin (Halfprin) 81 mg DAILY PO Last administered on 10/20/18 09:32; Admin Dose 81 MG; Start 10/16/18 at 09:00 Bumetanide (Bumex) 2 mg DAILY@0600 PO Last administered on 10/21/18 06:25; Admin Dose 2 MG; Start 10/16/18 at 06:00 Clopidogrel Bisulfate (plaVIX) 75 mg DAILY PO Last administered on 10/20/18 09:32; Admin Dose 75 MG; Start 10/16/18 at 09:00 Enoxaparin Sodium (Lovenox) 40 mg DAILY SC Last administered on 10/20/18 09:35; Admin Dose 40 MG; Start 10/16/18 at 09:00 Famotidine (Pepcid) 20 mg AC BREAKFAST PO Last administered on 10/21/18 06:25; Admin Dose 20 MG; Start 10/16/18 at 07:05 Felodipine (Plendil) 2.5 mg DAILY PO Last administered on 10/20/18 09:33; Admin Dose 2.5 MG; Start 10/16/18 at 09:00 Guaifenesin/ Codeine Phosphate (Robitussin Ac Liquid Cup) 5 ml Q4H PRN PO cough; Start 10/15/18 at 12:30 Lidocaine (Lidoderm) 1 patch DAILY TD Last administered on 10/20/18 09:32; Admin Dose 1 PATCH; Start 10/16/18 at 09:00 Lorazepam (Ativan) 0.5 mg Q8H PRN PO ANXIETY Last administered on 10/19/18 11:00; Admin Dose 0.5 MG; Start 10/15/18 at 12:30 Magnesium Oxide (Mag-Ox 400) 400 mg DAILY PO Last administered on 10/20/18 09:33; Admin Dose 400 MG; Start 10/16/18 at 09:00 Metoprolol Tartrate (Lopressor) 25 mg BID PO Last administered on 10/20/18 21:19; Admin Dose 25 MG; Start 10/15/18 at 21:00 Oxycodone/ Acetaminophen (Percocet (5/ 325)) 1 tab Q4H PRN PO MODERATE to SEV PAIN; Start 10/15/18 at 12:30 Zolpidem Tartrate (Ambien) 5 mg HS PRN PO INSOMNIA Last administered on 10/19/18 22:58; Admin Dose 5 MG; Start 10/15/18 at 12:30 Eye Lubricant (Artificial Tears Oph) 2 drop Q6H PRN BOTH EYES DRY EYES Last administered on 10/20/18 21:18; Admin Dose 2 DROP; Start 10/16/18 at 04:30 Ferric Sodium Gluconate Complex 125 mg/Sodium Chloride 110 ml @ 110 mls/hr DAILY@1300 IVPB Last administered on 10/20/18 12:40; Admin Dose 110 MLS/HR; Start 10/17/18 at 13:00; Stop 10/21/18 at 13:59 Atorvastatin Calcium (Lipitor) 20 mg HS PO Last administered on 10/20/18 21:18; Admin Dose 20 MG; Start 10/18/18 at 21:00 Lactulose (Enulose) 20 gm DAILY PO Last administered on 10/20/18 09:37; Admin Dose 20 GM; Start 10/20/18 at 09:00 Docusate Sodium (Colace) 100 mg Q12H PO Last administered on 10/20/18 21:17; Admin Dose 100 MG; Start 10/19/18 at 21:00 GENARO SEPULVEDA MD Oct 21, 2018 08:24
[2018-10-21] MEDS: DOCUSATE SODIUM 100 MG CAP PO SCH ×2 (08:36→20:43)
[2018-10-21] MEDS: LACTULOSE 30ML CUP PO SCH (08:36)
[2018-10-21] MEDS: MAGNESIUM OXIDE 400 MG TAB PO SCH (08:36)
[2018-10-21] MEDS: METOPROLOL 25 MG TAB PO SCH ×2 (08:36→20:47)
[2018-10-21] MEDS: CLOPIDOGREL 75 MG TAB PO SCH (08:37)
[2018-10-21] MEDS: ASPIRIN (EC) 81 MG TAB PO SCH (08:37)
[2018-10-21] MEDS: metFORMIN (XR) 500 MG TAB PO SCH ×2 (08:37→17:13)
[2018-10-21] MEDS: FELODIPINE (ER) 2.5 MG TAB PO SCH (08:37)
[2018-10-21] MEDS: LIDOCAINE 5% PATCH TD SCH (08:39)
[2018-10-21] MEDS: ENOXAPARIN 40 MG/0.4 ML SYG SC SCH (08:44)
[2018-10-21] MEDS: SOD FERRIC GLUC COMPLX 125 MG in SOD CHLORIDE 0.9% 100 ML IVPB SCH (12:30)
--- NOTE | 2018-10-21 12:39 | PN ---
Date/Time of Note Date/Time of Note DATE: 10/21/18 TIME: 12:37 Subjective Comfortable, no complaints Objective Vital Signs Date Temp Pulse Resp B/P (MAP) Pulse Ox O2 O2 Flow FiO2 Time Delivery Rate 10/21/18 97.9 98 18 150/68 96 07:30 (95) 10/21/18 Room Air 02:08 10/19/18 2.0 02:00 Intake and Output 10/20/18 10/20/18 10/21/18 1515:00 23:00 07:00 IntakeIntake Total 1410 ml 100 ml OutputOutput Total 800 ml BalanceBalance 610 ml 100 ml Exam pulm-cta sba ambulation Results/Medications Result Diagram: 10/21/1861810/21/18618 Results 24 hrs Laboratory Tests Test 10/20/18 17:20 10/20/18 21:21 10/21/18 06:19 10/21/18 08:07 Bedside Glucose 159 167 130 White Blood Count 4.2 L Red Blood Count 3.40 L Hemoglobin 9.5 L Hematocrit 29.3 L Mean Corpuscular Volume 86.2 Mean Corpuscular 27.9 L Hemoglobin Mean Corpuscular 32.4 Hemoglobin Concent Red Cell Distribution 14.3 Width Platelet Count 316 Mean Platelet Volume 10.7 H Immature Granulocytes % 0.700 H Neutrophils % 44.9 Lymphocytes % 36.6 Monocytes % 11.6 H Eosinophils % 5.7 Basophils % 0.5 Nucleated Red Blood 0.0 Cells % Immature Granulocytes # 0.030 Neutrophils # 1.9 Lymphocytes # 1.6 Monocytes # 0.5 Eosinophils # 0.2 Basophils # 0.0 Nucleated Red Blood 0.0 Cells # Sodium Level 141 Potassium Level 4.2 Chloride Level 102 Carbon Dioxide Level 31 Anion Gap 8 Blood Urea Nitrogen 24 H Creatinine 0.92 Est Glomerular Filtrat Rate mL/min Glucose Level 122 Calcium Level 9.9 Phosphorus Level 4.1 Magnesium Level 2.1 Total Bilirubin 0.4 Direct Bilirubin 0.00 Indirect Bilirubin 0.4 Aspartate Amino 27 Transf (AST/SGOT) Alanine 40 Aminotransferase (ALT/SG PT) Alkaline Phosphatase 112 Total Protein 6.9 Albumin 3.6 Globulin 3.30 H Albumin/Globulin Ratio 1.09 Test 10/21/18 12:01 Bedside Glucose 262 H Medications Current Medications Magnesium Hydroxide (Milk Of Mag) 30 ml BID PRN PO CONSTIPATION Last administered on 7/7/19at 06:25; Admin Dose 30 ML; Start 10/15/18 at 12:00 Bisacodyl (Dulcolax Supp) 10 mg DAILY PRN [place] CONSTIPATION; Start 10/15/18 at 12:00 Acetaminophen (Tylenol Tab) 650 mg Q4H PRN PO PAIN Last administered on at 00:41; Admin Dose 650 MG; Start 10/15/18 at 12:00 Miscellaneous Information (Pending [facility] Order For Wound Care) This patient salazar... PRN PRN XX WOUND CARE; Start 10/15/18 at 12:00 Miscellaneous Information 1 ea NOTE XX ; Start 10/15/18 at 12:30 Glucose (Glutose) 15 gm Q15M PRN PO DECREASED GLUCOSE; Start 10/15/18 at 12:30 Glucose (Glutose) 22.5 gm Q15M PRN PO DECREASED GLUCOSE; Start 10/15/18 at 12:30 Dextrose (D50w Syringe) 25 ml Q15M PRN IV DECREASED GLUCOSE; Start 10/15/18 at 12:30 Dextrose (D50w Syringe) 50 ml Q15M PRN IV DECREASED GLUCOSE; Start 10/15/18 at 12:30 Glucagon (Glucagen) 1 mg Q15M PRN IM DECREASED GLUCOSE; Start 10/15/18 at 12:30 Glucose (Glutose) 15 gm Q15M PRN BUCCAL DECREASED GLUCOSE; Start 10/15/18 at 12:30 Insulin Aspart (Novolog Insulin Pen) NOVOLOG *MODERATE* ALGORITHM WITH MEALS BEDTIME SC Last administered on 10/21/18at 12:30; Admin Dose 8 UNIT; Start 10/15/18 at 12:00 Aluminum Hydroxide (Aluminum Hydroxide) 30 ml Q4H PRN PO GASTROINTESTINAL UPSET; Start 10/15/18 at 12:30 Aspirin (Halfprin) 81 mg DAILY PO Last administered on 10/21/18at 08:37; Admin Dose 81 MG; Start 10/16/18 at 09:00 Bumetanide (Bumex) 2 mg DAILY@0600 PO Last administered on 10/21/18at 06:25; Admin Dose 2 MG; Start 10/16/18 at 06:00 Clopidogrel Bisulfate (plaVIX) 75 mg DAILY PO Last administered on 10/21/18at 08:37; Admin Dose 75 MG; Start 10/16/18 at 09:00 Enoxaparin Sodium (Lovenox) 40 mg DAILY SC Last administered on 10/21/18 08:44; Admin Dose 40 MG; Start 10/16/18 at 09:00 Famotidine (Pepcid) 20 mg AC BREAKFAST PO Last administered on 10/21/18 06:25; Admin Dose 20 MG; Start 10/16/18 at 07:05 Felodipine (Plendil) 2.5 mg DAILY PO Last administered on 10/21/18 08:37; Admin Dose 2.5 MG; Start 10/16/18 at 09:00 Guaifenesin/ Codeine Phosphate (Robitussin Ac Liquid Cup) 5 ml Q4H PRN PO cough; Start 10/15/18 at 12:30 Lidocaine (Lidoderm) 1 patch DAILY TD Last administered on 10/21/18 08:39; Admin Dose 1 PATCH; Start 10/16/18 at 09:00 Lorazepam (Ativan) 0.5 mg Q8H PRN PO ANXIETY Last administered on 10/19/18 11:00; Admin Dose 0.5 MG; Start 10/15/18 at 12:30 Magnesium Oxide (Mag-Ox 400) 400 mg DAILY PO Last administered on 10/21/18 08:36; Admin Dose 400 MG; Start 10/16/18 at 09:00 Metoprolol Tartrate (Lopressor) 25 mg BID PO Last administered on 10/21/18 08:36; Admin Dose 25 MG; Start 10/15/18 at 21:00 Oxycodone/ Acetaminophen (Percocet (5/ 325)) 1 tab Q4H PRN PO MODERATE to SEV PAIN; Start 10/15/18 at 12:30 Zolpidem Tartrate (Ambien) 5 mg HS PRN PO INSOMNIA Last administered on 10/19/18 22:58; Admin Dose 5 MG; Start 10/15/18 at 12:30 Eye Lubricant (Artificial Tears Oph) 2 drop Q6H PRN BOTH EYES DRY EYES Last administered on 10/20/18 21:18; Admin Dose 2 DROP; Start 10/16/18 at 04:30 Ferric Sodium Gluconate Complex 125 mg/Sodium Chloride 110 ml @ 110 mls/hr DAILY@1300 IVPB Last administered on 10/21/18 12:30; Admin Dose 110 MLS/HR; Start 10/17/18 at 13:00; Stop 10/21/18 at 13:59 Atorvastatin Calcium (Lipitor) 20 mg HS PO Last administered on 10/20/18 21:18; Admin Dose 20 MG; Start 10/18/18 at 21:00 Lactulose (Enulose) 20 gm DAILY PO Last administered on 10/21/18 08:36; Admin Dose 20 GM; Start 10/20/18 at 09:00 Docusate Sodium (Colace) 100 mg Q12H PO Last administered on 10/21/18 08:36; Admin Dose 100 MG; Start 10/19/18 at 21:00 Metformin HCl (Glucophage Xr) 500 mg BID WITH MEALS PO Last administered on 10/21/18 08:37; Admin Dose 500 MG; Start 10/21/18 at 08:24 Assessment/Plan Additional Assessment/Plan Rehab- Myopathy Progressing well with program. Family conference held with niece and PD. Will work towards home Saturday Congestive cardiac failure. Status post pneumonia with hypoxemic respiratory failure. Coronary artery disease status post stent placement x2.CARDIAC PRECAUTIONS, ASA/PLAVIX Essential hypertension. DEYSI ANNA MD Oct 21, 2018 12:39
[2018-10-21] MEDS: ARTIFICIAL TEARS 15 ML OPH BOTH EYES PRN ×2 (17:14→20:43)
[2018-10-21] MEDS ORDERED: LACTULOSE 30ML CUP PO PRN (19:00)
[2018-10-21 20:00] VITALS: BP 129/60; PULSE 91; RESP 19
[2018-10-21] MEDS: ATORVASTATIN 20 MG TAB PO SCH (20:43)
[2018-10-21] MEDS: ZOLPIDEM 5 MG TAB PO PRN (23:12)
[2018-10-22 02:00] VITALS: BP 121/63; PULSE 84; RESP 17
[2018-10-22] MEDS: FAMOTIDINE 20 MG TAB PO SCH (06:19)
[2018-10-22] MEDS: BUMETANIDE 1 MG TAB PO SCH (06:19)
[2018-10-22] MEDS: INSULIN ASPART [NOVOLOG] 3 ML PEN SC SCH ×4 (07:35→21:00)
[2018-10-22] MEDS: metFORMIN (XR) 500 MG TAB PO SCH ×2 (07:40→17:26)
[2018-10-22 08:00] VITALS: BP 137/59; RESP 20
[2018-10-22] MEDS: MAGNESIUM OXIDE 400 MG TAB PO SCH (08:45)
[2018-10-22] MEDS: FELODIPINE (ER) 2.5 MG TAB PO SCH (08:45)
[2018-10-22] MEDS: METOPROLOL 25 MG TAB PO SCH ×2 (08:45→21:00)
[2018-10-22] MEDS: DOCUSATE SODIUM 100 MG CAP PO SCH ×2 (08:45→21:02)
[2018-10-22] MEDS: CLOPIDOGREL 75 MG TAB PO SCH (08:45)
[2018-10-22] MEDS: LIDOCAINE 5% PATCH TD SCH (08:46)
[2018-10-22] MEDS: ARTIFICIAL TEARS 15 ML OPH BOTH EYES PRN (08:46)
[2018-10-22] MEDS: ASPIRIN (EC) 81 MG TAB PO SCH (08:46)
[2018-10-22] MEDS: ENOXAPARIN 40 MG/0.4 ML SYG SC SCH (08:49)
--- NOTE | 2018-10-22 12:39 | PN ---
Date/Time of Note Date/Time of Note DATE: 10/22/18 TIME: 12:38 Subjective Comfortable Objective Vital Signs Date Temp Pulse Resp B/P (MAP) Pulse Ox O2 O2 Flow FiO2 Time Delivery Rate 10/22/18 98.2 84 17 121/63 95 Room Air 02:00 (82) 10/19/18 2.0 02:00 Intake and Output 10/21/18 10/21/18 10/22/18 1515:00 23:00 07:00 IntakeIntake Total 310 ml 100 ml BalanceBalance 310 ml 100 ml Exam Motivated for activities sba transfer sba ambulation 180 feet Results/Medications Result Diagram: 10/21/1861810/21/18618 Results 24 hrs Laboratory Tests Test 10/21/18 17:12 10/21/18 20:41 10/22/18 02:15 10/22/18 07:36 Bedside Glucose 92 235 H 118 126 Test 10/22/18 11:49 Bedside Glucose 135 Medications Current Medications Magnesium Hydroxide (Milk Of Mag) 30 ml BID PRN PO CONSTIPATION Last administered on 10/19/18at 06:25; Admin Dose 30 ML; Start 10/15/18 at 12:00 Bisacodyl (Dulcolax Supp) 10 mg DAILY PRN [place] CONSTIPATION; Start 10/15/18 at 12:00 Acetaminophen (Tylenol Tab) 650 mg Q4H PRN PO PAIN Last administered on 10/19at 00:41; Admin Dose 650 MG; Start 10/15/18 at 12:00 Miscellaneous Information (Pending [facility] Order For Wound Care) This patient salazar... PRN PRN XX WOUND CARE; Start 10/15/18 at 12:00 Miscellaneous Information 1 ea NOTE XX ; Start 10/15/18 at 12:30 Glucose (Glutose) 15 gm Q15M PRN PO DECREASED GLUCOSE; Start 10/15/18 at 12:30 Glucose (Glutose) 22.5 gm Q15M PRN PO DECREASED GLUCOSE; Start 10/15/18 at 12:30 Dextrose (D50w Syringe) 25 ml Q15M PRN IV DECREASED GLUCOSE; Start 10/15/18 at 12:30 Dextrose (D50w Syringe) 50 ml Q15M PRN IV DECREASED GLUCOSE; Start 10/15/18 at 12:30 Glucagon (Glucagen) 1 mg Q15M PRN IM DECREASED GLUCOSE; Start 10/15/18 at 12:30 Glucose (Glutose) 15 gm Q15M PRN BUCCAL DECREASED GLUCOSE; Start 10/15/18 at 12:30 Insulin Aspart (Novolog Insulin Pen) NOVOLOG *MODERATE* ALGORITHM WITH MEALS BEDTIME SC Last administered on 10/21/18 20:55; Admin Dose 2 UNIT; Start 9 at 12:00 Aluminum Hydroxide (Aluminum Hydroxide) 30 ml Q4H PRN PO GASTROINTESTINAL UPSET; Start 10/15/18 at 12:30 Aspirin (Halfprin) 81 mg DAILY PO Last administered on 10/22/18 08:46; Admin Dose 81 MG; Start 10/16/18 at 09:00 Bumetanide (Bumex) 2 mg DAILY@0600 PO Last administered on 10/22/18 06:19; Admin Dose 2 MG; Start 10/16/18 at 06:00 Clopidogrel Bisulfate (plaVIX) 75 mg DAILY PO Last administered on 10/22/18 08:45; Admin Dose 75 MG; Start 10/16/18 at 09:00 Enoxaparin Sodium (Lovenox) 40 mg DAILY SC Last administered on 10/22/18 08:49; Admin Dose 40 MG; Start 10/16/18 at 09:00 Famotidine (Pepcid) 20 mg AC BREAKFAST PO Last administered on 10/22/18 06:19; Admin Dose 20 MG; Start 10/16/18 at 07:05 Felodipine (Plendil) 2.5 mg DAILY PO Last administered on 10/22/18 08:45; Admin Dose 2.5 MG; Start 10/16/18 at 09:00 Guaifenesin/ Codeine Phosphate (Robitussin Ac Liquid Cup) 5 ml Q4H PRN PO cough; Start 10/15/18 at 12:30 Lidocaine (Lidoderm) 1 patch DAILY TD Last administered on 10/22/18 08:46; Admin Dose 1 PATCH; Start 10/16/18 at 09:00 Lorazepam (Ativan) 0.5 mg Q8H PRN PO ANXIETY Last administered on 10/19/18 11:00; Admin Dose 0.5 MG; Start 10/15/18 at 12:30 Magnesium Oxide (Mag-Ox 400) 400 mg DAILY PO Last administered on 10/22/18 08:45; Admin Dose 400 MG; Start 10/16/18 at 09:00 Metoprolol Tartrate (Lopressor) 25 mg BID PO Last administered on 10/22/18 08:45; Admin Dose 25 MG; Start 10/15/18 at 21:00 Oxycodone/ Acetaminophen (Percocet (5/ 325)) 1 tab Q4H PRN PO MODERATE to SEV PAIN; Start 10/15/18 at 12:30 Zolpidem Tartrate (Ambien) 5 mg HS PRN PO INSOMNIA Last administered on 10/21/18 23:12; Admin Dose 5 MG; Start 10/15/18 at 12:30 Eye Lubricant (Artificial Tears Oph) 2 drop Q6H PRN BOTH EYES DRY EYES Last administered on 10/22/18 08:46; Admin Dose 2 DROP; Start 10/16/18 at 04:30 Atorvastatin Calcium (Lipitor) 20 mg HS PO Last administered on 10/21/18 20:43; Admin Dose 20 MG; Start 10/18/18 at 21:00 Docusate Sodium (Colace) 100 mg Q12H PO Last administered on 10/22/18 08:45; Admin Dose 100 MG; Start 10/19/18 at 21:00 Metformin HCl (Glucophage Xr) 500 mg BID WITH MEALS PO Last administered on 10/22/18 07:40; Admin Dose 500 MG; Start 10/21/18 at 08:24 Lactulose (Enulose) 20 gm DAILY PRN PO CONSTIPATION; Start 10/21/18 at 19:00 Assessment/Plan Additional Assessment/Plan Rehab- Myopathy Good gains with rehab program, continue treatment plan Congestive cardiac failure. Status post pneumonia with hypoxemic respiratory failure. Coronary artery disease status post stent placement x2.CARDIAC PRECAUTIONS, ASA/PLAVIX Essential hypertension. DEYSI ANNA MD Oct 22, 2018 12:39
--- NOTE | 2018-10-22 19:18 | CONS ---
Assessment/Plan Assessment/Plan Hospital Course (Demo Recall) 1. 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 She is overall doing much better. She is now up walking with a walker. Her blood pressure is being monitored both sitting and standing and seems acceptable. She is now on the acute rehab unit and participating in the comprehensive rehabilitation program. 2. History of diastolic congestive heart failure. Now well compensated. Chest x-ray done yesterday shows improvement. 3. Pneumonia. Has resolved 4. Hypertension. Controlled 5. Type 2 diabetes mellitus. I am going to try get her back on her oral diabetic medication. 6. Anemia of chronic disease 7. Rash on sacrum and left buttocks. Wound care nurse thinks that it may be herpes zoster. Patient denies pain. Rashes being covered with Allevyn 8. She complains of constipation. I will add some more stool softener. Consultation Date/Type/Reason Admit Date/Time Oct 15, 2018 at 11:22 Initial Consult Date Type of Consult Nephrology Date/Time of Note DATE: 10/22/18 TIME: 19:15 24 HR Interval Summary Free Text/Dictation Mandi is up walking with a walker. She is feeling overall better and stronger. She is not short of breath. Constitutional: no complaints, improved Exam/Review of Systems Exam Vitals Vital Signs Date Temp Pulse Resp B/P (MAP) Pulse Ox O2 O2 Flow FiO2 Time Delivery Rate 10/22/18 20 137/59 97 Room Air 08:00 (85) 10/22/18 98.2 84 02:00 10/19/18 2.0 02:00 Intake and Output 10/21/18 10/21/18 10/22/18 1414:59 22:59 06:59 IntakeIntake Total 310 ml 100 ml BalanceBalance 310 ml 100 ml Constitutional: alert, oriented, frail Respiratory: clear to auscultation, normal air movement Cardiovascular: regular rate and rhythm Gastrointestinal: soft, non-tender Musculoskeletal: nl extremities to inspection Results Result Diagram: 10/21/1861810/21/18618 Results 24hrs Laboratory Tests Test 10/21/18 20:41 10/22/18 02:15 10/22/18 07:36 10/22/18 11:49 Bedside Glucose 235 H 118 126 135 Test 10/22/18 17:14 Bedside Glucose 120 Medications Medication Current Medications Magnesium Hydroxide (Milk Of Mag) 30 ml BID PRN PO CONSTIPATION Last admi nistered on 10/19/18at 06:25; Admin Dose 30 ML; Start 10/15/18 at 12:00 Bisacodyl (Dulcolax Supp) 10 mg DAILY PRN [place] CONSTIPATION; Start 10/15/18 at 12:00 Acetaminophen (Tylenol Tab) 650 mg Q4H PRN PO PAIN Last administered on 10/19/18at 00:41; Admin Dose 650 MG; Start 10/15/18 at 12:00 Miscellaneous Information (Pending [facility] Order For Wound Care) This patient salazar... PRN PRN XX WOUND CARE; Start 10/15/18 at 12:00 Miscellaneous Information 1 ea NOTE XX ; Start 10/15/18 at 12:30 Glucose (Glutose) 15 gm Q15M PRN PO DECREASED GLUCOSE; Start 10/15/18 at 12:30 Glucose (Glutose) 22.5 gm Q15M PRN PO DECREASED GLUCOSE; Start 10/15/18 at 12:30 Dextrose (D50w Syringe) 25 ml Q15M PRN IV DECREASED GLUCOSE; Start 10/15/18 at 12:30 Dextrose (D50w Syringe) 50 ml Q15M PRN IV DECREASED GLUCOSE; Start 10/15/18 at 12:30 Glucagon (Glucagen) 1 mg Q15M PRN IM DECREASED GLUCOSE; Start 10/15/18 at 12:30 Glucose (Glutose) 15 gm Q15M PRN BUCCAL DECREASED GLUCOSE; Start 10/15/18 at 12:30 Insulin Aspart (Novolog Insulin Pen) NOVOLOG *MODERATE* ALGORITHM WITH MEALS BEDTIME SC Last administered on 10/21/18at 20:55; Admin Dose 2 UNIT; Start 10/15/18 at 12:00 Aluminum Hydroxide (Aluminum Hydroxide) 30 ml Q4H PRN PO GASTROINTESTINAL UPSET; Start 10/15/18 at 12:30 Aspirin (Halfprin) 81 mg DAILY PO Last administered on 10/22/18at 08:46; Admin Dose 81 MG; Start 10/16/18 at 09:00 Bumetanide (Bumex) 2 mg DAILY@0600 PO Last administered on 10/22/18at 06:19; Admin Dose 2 MG; Start 10/16/18 at 06:00 Clopidogrel Bisulfate (plaVIX) 75 mg DAILY PO Last administered on 10/22/18 08:45; Admin Dose 75 MG; Start 10/16/18 at 09:00 Enoxaparin Sodium (Lovenox) 40 mg DAILY SC Last administered on 10/22/18 08:49; Admin Dose 40 MG; Start 10/16/18 at 09:00 Famotidine (Pepcid) 20 mg AC BREAKFAST PO Last administered on 10/22/18 0 6:19; Admin Dose 20 MG; Start 10/16/18 at 07:05 Felodipine (Plendil) 2.5 mg DAILY PO Last administered on 10/22/18 08:45; Admin Dose 2.5 MG; Start 10/16/18 at 09:00 Guaifenesin/ Codeine Phosphate (Robitussin Ac Liquid Cup) 5 ml Q4H PRN PO cough; Start 10/15/18 at 12:30 Lidocaine (Lidoderm) 1 patch DAILY TD Last administered on 10/22/18 08:46; Admin Dose 1 PATCH; Start 10/16/18 at 09:00 Lorazepam (Ativan) 0.5 mg Q8H PRN PO ANXIETY Last administered on 10/19/18 11:00; Admin Dose 0.5 MG; Start 10/15/18 at 12:30 Magnesium Oxide (Mag-Ox 400) 400 mg DAILY PO Last administered on 10/22/18 08:45; Admin Dose 400 MG; Start 10/16/18 at 09:00 Metoprolol Tartrate (Lopressor) 25 mg BID PO Last administered on 10/22/18 08:45; Admin Dose 25 MG; Start 10/15/18 at 21:00 Oxycodone/ Acetaminophen (Percocet (5/ 325)) 1 tab Q4H PRN PO MODERATE to SEV PAIN; Start 10/15/18 at 12:30 Zolpidem Tartrate (Ambien) 5 mg HS PRN PO INSOMNIA Last administered on 10/21/18 23:12; Admin Dose 5 MG; Start 10/15/18 at 12:30 Eye Lubricant (Artificial Tears Oph) 2 drop Q6H PRN BOTH EYES DRY EYES Last administered on 10/22/18 08:46; Admin Dose 2 DROP; Start 10/16/18 at 04:30 Atorvastatin Calcium (Lipitor) 20 mg HS PO Last administered on 7/9/19at 20:43; Admin Dose 20 MG; Start 10/18/18 at 21:00 Docusate Sodium (Colace) 100 mg Q12H PO Last administered on 10/22/18at 08:45; Admin Dose 100 MG; Start 10/19/18 at 21:00 Metformin HCl (Glucophage Xr) 500 mg BID WITH MEALS PO Last administered on 10/22/18at 17:26; Admin Dose 500 MG; Start 10/21/18 at 08:24 Lactulose (Enulose) 20 gm DAILY PRN PO CONSTIPATION; Start 10/21/18 at 19:00 GENARO SEPULVEDA MD Oct 22, 2018 19:18
[2018-10-22 20:00] VITALS: BP 108/56; PULSE 87; RESP 18
[2018-10-22] MEDS: ATORVASTATIN 20 MG TAB PO SCH (21:02)
[2018-10-22] MEDS: ZOLPIDEM 5 MG TAB PO PRN (23:40)
[2018-10-23 02:00] VITALS: BP 147/58; PULSE 78; RESP 17
[2018-10-23] MEDS: FAMOTIDINE 20 MG TAB PO SCH (06:38)
[2018-10-23] MEDS: BUMETANIDE 1 MG TAB PO SCH (06:38)
[2018-10-23] MEDS: METOPROLOL 25 MG TAB PO SCH ×2 (06:45→20:22)
[2018-10-23] MEDS: FELODIPINE (ER) 2.5 MG TAB PO SCH (07:25)
[2018-10-23] MEDS: metFORMIN (XR) 500 MG TAB PO SCH ×2 (07:29→17:32)
[2018-10-23] MEDS: INSULIN ASPART [NOVOLOG] 3 ML PEN SC SCH ×4 (07:35→21:46)
[2018-10-23 07:50] VITALS: BP 173/83; PULSE 80; RESP 18
[2018-10-23 08:49] VITALS: BP 142/62; PULSE 81
[2018-10-23] MEDS: ARTIFICIAL TEARS 15 ML OPH BOTH EYES PRN ×2 (09:50→21:37)
[2018-10-23] MEDS: ASPIRIN (EC) 81 MG TAB PO SCH (09:58)
[2018-10-23] MEDS: LIDOCAINE 5% PATCH TD SCH (09:58)
[2018-10-23] MEDS: CLOPIDOGREL 75 MG TAB PO SCH (09:58)
[2018-10-23] MEDS: LORAZEPAM 0.5 MG TAB PO PRN (09:58)
[2018-10-23] MEDS: DOCUSATE SODIUM 100 MG CAP PO SCH ×2 (09:58→20:21)
[2018-10-23] MEDS: ENOXAPARIN 40 MG/0.4 ML SYG SC SCH (09:59)
[2018-10-23] MEDS: MAGNESIUM OXIDE 400 MG TAB PO SCH (10:01)
--- NOTE | 2018-10-23 11:16 | PN ---
Date/Time of Note Date/Time of Note DATE: 10/23/18 TIME: 11:15 Objective Vital Signs Date Temp Pulse Resp B/P (MAP) Pulse Ox O2 O2 Flow FiO2 Time Delivery Rate 10/23/18 81 142/62 Room Air 08:49 (88) 10/23/18 98.0 18 98 07:50 Intake and Output 10/22/18 10/22/18 10/23/18 1515:00 23:00 07:00 IntakeIntake Total 300 ml 200 ml BalanceBalance 300 ml 200 ml Exam INTERDISCIPLINARY TEAM CONFERENCE Attended by PT, OT, ST, Roof Slater, Social Work, Rehabilitation Nursing, Kettleman and Drill Operator PneumaticSchool Adjustment Counselor Exam: Pulm- cta Abd- soft BOWEL- Cont BLADDER-Cont SKIN- improving OT- DRESSING- sba BATHING-sba TOILETING-sba PT- BED MOBILITY-sba TRANSFERS-sb AMBULATION-sba 200 feet A/P- Interdisciplinary team conference held today. Please see interdisciplinary sheet. Working toward d.c. on 10/25 with post discharge follow up of physical therapy, occupational therapy. Results/Medications Result Diagram: 10/21/1861810/21/18618 Results 24 hrs Laboratory Tests Test 10/22/18 11:49 10/22/18 17:14 10/22/18 21:01 10/23/18 07:28 Bedside Glucose 135 120 175 119 Medications Current Medications Magnesium Hydroxide (Milk Of Mag) 30 ml BID PRN PO CONSTIPATION Last administered on 10/19/18at 06:25; Admin Dose 30 ML; Start 10/15/18 at 12:00 Bisacodyl (Dulcolax Supp) 10 mg DAILY PRN [place] CONSTIPATION; Start 10/15/18 at 12:00 Acetaminophen (Tylenol Tab) 650 mg Q4H PRN PO PAIN Last administered on 10/19/18at 00:41; Admin Dose 650 MG; Start 10/15/18 at 12:00 Miscellaneous Information (Pending [facility] Order For Wound Care) This patient salazar... PRN PRN XX WOUND CARE; Start 10/15/18 at 12:00 Miscellaneous Information 1 ea NOTE XX ; Start 10/15/18 at 12:30 Glucose (Glutose) 15 gm Q15M PRN PO DECREASED GLUCOSE; Start 10/15/18 at 12:30 Glucose (Glutose) 22.5 gm Q15M PRN PO DECREASED GLUCOSE; Start 10/15/18 at 12:30 Dextrose (D50w Syringe) 25 ml Q15M PRN IV DECREASED GLUCOSE; Start 10/15/18 at 12:30 Dextrose (D50w Syringe) 50 ml Q15M PRN IV DECREASED GLUCOSE; Start 10/15/18 at 12:30 Glucagon (Glucagen) 1 mg Q15M PRN IM DECREASED GLUCOSE; Start 10/15/18 at 12:30 Glucose (Glutose) 15 gm Q15M PRN BUCCAL DECREASED GLUCOSE; Start 10/15/18 at 12:30 Insulin Aspart (Novolog Insulin Pen) NOVOLOG *MODERATE* ALGORITHM WITH MEALS BEDTIME SC Last administered on 10/21/18 20:55; Admin Dose 2 UNIT; Start 10/15/18 at 12:00 Aluminum Hydroxide (Aluminum Hydroxide) 30 ml Q4H PRN PO GASTROINTESTINAL UPSET; Start 10/15/18 at 12:30 Aspirin (Halfprin) 81 mg DAILY PO Last administered on 10/23/18 09:58; Admin Dose 81 MG; Start 10/16/18 at 09:00 Bumetanide (Bumex) 2 mg DAILY@0600 PO Last administered on 10/23/18 06:38; Admin Dose 2 MG; Start 10/16/18 at 06:00 Clopidogrel Bisulfate (plaVIX) 75 mg DAILY PO Last administered on 10/23/18 09:58; Admin Dose 75 MG; Start 10/16/18 at 09:00 Enoxaparin Sodium (Lovenox) 40 mg DAILY SC Last administered on 10/23/18 09:59; Admin Dose 40 MG; Start 10/16/18 at 09:00 Famotidine (Pepcid) 20 mg AC BREAKFAST PO Last administered on 10/23/18 06:38; Admin Dose 20 MG; Start 10/16/18 at 07:05 Felodipine (Plendil) 2.5 mg DAILY PO Last administered on 10/23/18 07:25; Admin Dose 2.5 MG; Start 10/16/18 at 09:00 Guaifenesin/ Codeine Phosphate (Robitussin Ac Liquid Cup) 5 ml Q4H PRN PO cough; Start 10/15/18 at 12:30 Lidocaine (Lidoderm) 1 patch DAILY TD Last administered on 10/23/18 09:58; Admin Dose 1 PATCH; Start 10/16/18 at 09:00 Lorazepam (Ativan) 0.5 mg Q8H PRN PO ANXIETY Last administered on 10/23/18 09:58; Admin Dose 0.5 MG; Start 10/15/18 at 12:30 Magnesium Oxide (Mag-Ox 400) 400 mg DAILY PO Last administered on 10/23/18 10:01; Admin Dose 400 MG; Start 10/16/18 at 09:00 Metoprolol Tartrate (Lopressor) 25 mg BID PO Last administered on 10/23/18 06:45; Admin Dose 25 MG; Start 10/15/18 at 21:00 Oxycodone/ Acetaminophen (Percocet (5/ 325)) 1 tab Q4H PRN PO MODERATE to SEV PAIN; Start 10/15/18 at 12:30 Zolpidem Tartrate (Ambien) 5 mg HS PRN PO INSOMNIA Last administered on 23:40; Admin Dose 5 MG; Start 10/15/18 at 12:30 Eye Lubricant (Artificial Tears Oph) 2 drop Q6H PRN BOTH EYES DRY EYES Last administered on 10/23/18 09:50; Admin Dose 2 DROP; Start 10/16/18 at 04:30 Atorvastatin Calcium (Lipitor) 20 mg HS PO Last administered on 10/22/18 21:02; Admin Dose 20 MG; Start 10/18/18 at 21:00 Docusate Sodium (Colace) 100 mg Q12H PO Last administered on 10/23/18 09:58; Admin Dose 100 MG; Start 10/19/18 at 21:00 Metformin HCl (Glucophage Xr) 500 mg BID WITH MEALS PO Last administered on 10/23/18 07:29; Admin Dose 500 MG; Start 10/21/18 at 08:24 Lactulose (Enulose) 20 gm DAILY PRN PO CONSTIPATION; Start 10/21/18 at 19:00 DEYSI ANNA MD Oct 23, 2018 11:16
[2018-10-23 14:00] VITALS: BP 135/65; PULSE 78; RESP 18
--- NOTE | 2018-10-23 18:09 | CONS ---
Assessment/Plan Assessment/Plan Hospital Course (Demo Recall) 1. 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 She is overall doing much better. She is now up walking with a walker. Her blood pressure is being monitored both sitting and standing and seems acceptable. She is now on the acute rehab unit and participating in the comprehensive rehabilitation program. 2. History of diastolic congestive heart failure. Now well compensated. Chest x-ray done yesterday shows improvement. 3. Pneumonia. Has resolved 4. Hypertension. Controlled 5. Type 2 diabetes mellitus. I am going to try get her back on her oral diabetic medication. 6. Anemia of chronic disease 7. Rash on sacrum and left buttocks. Wound care nurse thinks that it may be herpes zoster. Patient denies pain. Rashes being covered with Allevyn 8. She complains of constipation. I will add some more stool softener. 9. CAD , s/p AMI , 2 stents placed . Consultation Date/Type/Reason Admit Date/Time Oct 15, 2018 at 11:22 Initial Consult Date Type of Consult Nephrology Date/Time of Note DATE: 10/23/18 TIME: 18:02 24 HR Interval Summary Free Text/Dictation Mandi is sitting up on the edge of the bed . No new complaints . She has been up walking with PT . Constitutional: no complaints, improved Exam/Review of Systems Exam Vitals Vital Signs Date Temp Pulse Resp B/P (MAP) Pulse Ox O2 O2 Flow FiO2 Time Delivery Rate 10/23/18 81 142/62 Room Air 08:49 (88) 10/23/18 98.0 18 98 07:50 Intake and Output 10/22/18 10/22/18 10/23/18 1515:00 23:00 07:00 IntakeIntake Total 300 ml 200 ml BalanceBalance 300 ml 200 ml Constitutional: alert, oriented, well developed Respiratory: clear to auscultation, normal air movement Cardiovascular: regular rate and rhythm Gastrointestinal: soft, non-tender Musculoskeletal: nl extremities to inspection Results Result Diagram: 10/21/1861810/21/18618 Results 24hrs Laboratory Tests Test 10/22/18 21:01 10/23/18 07:28 10/23/18 11:37 10/23/18 17:31 Bedside Glucose 175 119 163 128 Medications Medication Current Medications Magnesium Hydroxide (Milk Of Mag) 30 ml BID PRN PO CONSTIPATION Last administered on 10/19/18at 06:25; Admin Dose 30 ML; Start 10/15/18 at 12:00 Bisacodyl (Dulcolax Supp) 10 mg DAILY PRN [place] CONSTIPATION; Start 10/15/18 at 12:00 Acetaminophen (Tylenol Tab) 650 mg Q4H PRN PO PAIN Last administered on 10/19/18at 00:41; Admin Dose 650 MG; Start 10/15/18 at 12:00 Miscellaneous Information (Pending [facility] Order For Wound Care) This patient salazar... PRN PRN XX WOUND CARE; Start 10/15/18 at 12:00 Miscellaneous Information 1 ea NOTE XX ; Start 10/15/18 at 12:30 Glucose (Glutose) 15 gm Q15M PRN PO DECREASED GLUCOSE; Start 10/15/18 at 12:30 Glucose (Glutose) 22.5 gm Q15M PRN PO DECREASED GLUCOSE; Start 10/15/18 at 12:30 Dextrose (D50w Syringe) 25 ml Q15M PRN IV DECREASED GLUCOSE; Start 10/15/18 at 12:30 Dextrose (D50w Syringe) 50 ml Q15M PRN IV DECREASED GLUCOSE; Start 10/15/18 at 12:30 Glucagon (Glucagen) 1 mg Q15M PRN IM DECREASED GLUCOSE; Start 10/15/18 at 12:30 Glucose (Glutose) 15 gm Q15M PRN BUCCAL DECREASED GLUCOSE; Start 10/15/18 at 12:30 Insulin Aspart (Novolog Insulin Pen) NOVOLOG *MODERATE* ALGORITHM WITH MEALS BEDTIME SC Last administered on 10/23/18at 11:42; Admin Dose 2 UNIT; Start 10/15/18 at 12:00 Aluminum Hydroxide (Aluminum Hydroxide) 30 ml Q4H PRN PO GASTROINTESTINAL UPSET; Start 10/15/18 at 12:30 Aspirin (Halfprin) 81 mg DAILY PO Last administered on 10/23/18at 09:58; Admin Dose 81 MG; Start 10/16/18 at 09:00 Bumetanide (Bumex) 2 mg DAILY@0600 PO Last administered on 10/23/18at 06:38; Admin Dose 2 MG; Start 10/16/18 at 06:00 Clopidogrel Bisulfate (plaVIX) 75 mg DAILY PO Last administered on 10/23/18at 09:58; Admin Dose 75 MG; Start 10/16/18 at 09:00 Enoxaparin Sodium (Lovenox) 40 mg DAILY SC Last administered on 10/23/18 09:59; Admin Dose 40 MG; Start 10/16/18 at 09:00 Famotidine (Pepcid) 20 mg AC BREAKFAST PO Last administered on 10/23/18 06:38; Admin Dose 20 MG; Start 10/16/18 at 07:05 Felodipine (Plendil) 2.5 mg DAILY PO Last administered on 10/23/18 07:25; Admin Dose 2.5 MG; Start 10/16/18 at 09:00 Guaifenesin/ Codeine Phosphate (Robitussin Ac Liquid Cup) 5 ml Q4H PRN PO cough; Start 10/15/18 at 12:30 Lidocaine (Lidoderm) 1 patch DAILY TD Last administered on 10/23/18 09:58; Admin Dose 1 PATCH; Start 10/16/18 at 09:00 Lorazepam (Ativan) 0.5 mg Q8H PRN PO ANXIETY Last administered on 10/23/18 09:58; Admin Dose 0.5 MG; Start 10/15/18 at 12:30 Magnesium Oxide (Mag-Ox 400) 400 mg DAILY PO Last administered on 10/23/18 10:01; Admin Dose 400 MG; Start 10/16/18 at 09:00 Metoprolol Tartrate (Lopressor) 25 mg BID PO Last administered on 10/23/18 06:45; Admin Dose 25 MG; Start 10/15/18 at 21:00 Oxycodone/ Acetaminophen (Percocet (5/ 325)) 1 tab Q4H PRN PO MODERATE to SEV PAIN; Start 10/15/18 at 12:30 Zolpidem Tartrate (Ambien) 5 mg HS PRN PO INSOMNIA Last administered on 10/22/18 23:40; Admin Dose 5 MG; Start 10/15/18 at 12:30 Eye Lubricant (Artificial Tears Oph) 2 drop Q6H PRN BOTH EYES DRY EYES Last administered on 10/23/18 09:50; Admin Dose 2 DROP; Start 10/16/18 at 04:30 Atorvastatin Calcium (Lipitor) 20 mg HS PO Last administered on 10/22/18 21:02; Admin Dose 20 MG; Start 10/18/18 at 21:00 Docusate Sodium (Colace) 100 mg Q12H PO Last administered on 10/23/18at 09:58; Admin Dose 100 MG; Start 10/19/18 at 21:00 Metformin HCl (Glucophage Xr) 500 mg BID WITH MEALS PO Last administered on 10/23/18at 17:32; Admin Dose 500 MG; Start 10/21/18 at 08:24 Lactulose (Enulose) 20 gm DAILY PRN PO CONSTIPATION; Start 10/21/18 at 19:00 GENARO SEPULVEDA MD Oct 23, 2018 18:09
[2018-10-23 20:20] VITALS: BP 125/57; PULSE 94; RESP 17
[2018-10-23] MEDS: ATORVASTATIN 20 MG TAB PO SCH (20:21)
[2018-10-23 21:47] VITALS: BP 136/60; PULSE 91
[2018-10-24 04:00] VITALS: BP 136/65; PULSE 77; RESP 18
[2018-10-24] MEDS: BUMETANIDE 1 MG TAB PO SCH (06:10)
[2018-10-24] MEDS: FAMOTIDINE 20 MG TAB PO SCH ×2 (06:10→09:16)
[2018-10-24 08:00] VITALS: BP 128/65; PULSE 88; RESP 19
[2018-10-24] MEDS: INSULIN ASPART [NOVOLOG] 3 ML PEN SC SCH ×4 (08:03→20:16)
[2018-10-24] MEDS: metFORMIN (XR) 500 MG TAB PO SCH ×2 (08:04→18:30)
--- NOTE | 2018-10-24 08:52 | PN ---
Date/Time of Note Date/Time of Note DATE: 10/24/18 TIME: 08:51 Subjective Motivated, doing well Objective Vital Signs Date Temp Pulse Resp B/P (MAP) Pulse Ox O2 O2 Flow FiO2 Time Delivery Rate 10/24/18 98.1 77 18 136/65 96 Room Air 04:00 (88) Intake and Output 10/23/18 10/23/18 10/24/18 1515:00 23:00 07:00 IntakeIntake Total 300 ml 600 ml 400 ml BalanceBalance 300 ml 600 ml 400 ml Exam sba transfers sba ambulation 200 feet Results/Medications Result Diagram: 10/21/1861810/21/18618 Results 24 hrs Laboratory Tests Test 10/23/18 11:37 10/23/18 17:31 10/23/18 20:28 10/24/18 03:18 Bedside Glucose 163 128 205 130 Test 10/24/18 07:59 Bedside Glucose 149 Medications Current Medications Magnesium Hydroxide (Milk Of Mag) 30 ml BID PRN PO CONSTIPATION Last administered on 10/19/18at 06:25; Admin Dose 30 ML; Start 10/15/18 at 12:00 Bisacodyl (Dulcolax Supp) 10 mg DAILY PRN [place] CONSTIPATION; Start 10/15/18 at 12:00 Acetaminophen (Tylenol Tab) 650 mg Q4H PRN PO PAIN Last administered on 10/19/18at 00:41; Admin Dose 650 MG; Start 10/15/18 at 12:00 Miscellaneous Information [facility] This patient salazar... PRN PRN XX WOUND CARE; Start 10/15/18 at 12:00 Miscellaneous Information 1 ea NOTE XX ; Start 10/15/18 at 12:30 Glucose (Glutose) 15 gm Q15M PRN PO DECREASED GLUCOSE; Start 10/15/18 at 12:30 Glucose (Glutose) 22.5 gm Q15M PRN PO DECREASED GLUCOSE; Start 10/15/18 at 12:30 Dextrose (D50w Syringe) 25 ml Q15M PRN IV DECREASED GLUCOSE; Start 10/15/18 at 12:30 Dextrose (D50w Syringe) 50 ml Q15M PRN IV DECREASED GLUCOSE; Start 10/15/18 at 12:30 Glucagon (Glucagen) 1 mg Q15M PRN IM DECREASED GLUCOSE; Start 10/15/18 at 12:30 Glucose (Glutose) 15 gm Q15M PRN BUCCAL DECREASED GLUCOSE; Start 10/15/18 at 12:30 Insulin Aspart (Novolog Insulin Pen) NOVOLOG *MODERATE* ALGORITHM WITH MEALS BEDTIME SC Last administered on 10/24/18 08:03; Admin Dose 2 UNIT; Start 10/15/18 at 12:00 Aluminum Hydroxide (Aluminum Hydroxide) 30 ml Q4H PRN PO GASTROINTESTINAL UPSET; Start 10/15/18 at 12:30 Aspirin (Halfprin) 81 mg DAILY PO Last administered on 10/23/18 09:58; Admin Dose 81 MG; Start 10/16/18 at 09:00 Bumetanide (Bumex) 2 mg DAILY@0600 PO Last administered on 10/24/18 06:10; Admin Dose 2 MG; Start 10/16/18 at 06:00 Clopidogrel Bisulfate (plaVIX) 75 mg DAILY PO Last administered on 10/23/18 09:58; Admin Dose 75 MG; Start 10/16/18 at 09:00 Famotidine (Pepcid) 20 mg AC BREAKFAST PO Last administered on 10/24/18 06:10; Admin Dose 20 MG; Start 10/16/18 at 07:05 Felodipine (Plendil) 2.5 mg DAILY PO Last administered on 10/23/18 07:25; Admin Dose 2.5 MG; Start 10/16/18 at 09:00 Guaifenesin/ Codeine Phosphate (Robitussin Ac Liquid Cup) 5 ml Q4H PRN PO cough; Start 10/15/18 at 12:30 Lidocaine (Lidoderm) 1 patch DAILY TD Last administered on 10/23/18 09:58; Admin Dose 1 PATCH; Start 10/16/18 at 09:00 Lorazepam (Ativan) 0.5 mg Q8H PRN PO ANXIETY Last administered on 10/23/18 09:58; Admin Dose 0.5 MG; Start 10/15/18 at 12:30 Magnesium Oxide (Mag-Ox 400) 400 mg DAILY PO Last administered on 10/23/18 10:01; Admin Dose 400 MG; Start 10/16/18 at 09:00 Metoprolol Tartrate (Lopressor) 25 mg BID PO Last administered on 10/23/18 20:22; Admin Dose 25 MG; Start 10/15/18 at 21:00 Oxycodone/ Acetaminophen (Percocet (5/ 325)) 1 tab Q4H PRN PO MODERATE to SEV PAIN; Start 10/15/18 at 12:30 Zolpidem Tartrate (Ambien) 5 mg HS PRN PO INSOMNIA Last administered on 10/22/18 23:40; Admin Dose 5 MG; Start 10/15/18 at 12:30 Eye Lubricant (Artificial Tears Oph) 2 drop Q6H PRN BOTH EYES DRY EYES Last administered on 10/23/18 21:37; Admin Dose 2 DROP; Start 10/16/18 at 04:30 Atorvastatin Calcium (Lipitor) 20 mg HS PO Last administered on 10/23/18 20:21; Admin Dose 20 MG; Start 10/18/18 at 21:00 Docusate Sodium (Colace) 100 mg Q12H PO Last administered on 10/23/18 20:21; Admin Dose 100 MG; Start 10/19/18 at 21:00 Metformin HCl (Glucophage Xr) 500 mg BID WITH MEALS PO Last administered on 10/24/18 08:04; Admin Dose 500 MG; Start 10/21/18 at 08:24 Lactulose (Enulose) 20 gm DAILY PRN PO CONSTIPATION; Start 10/21/18 at 19:00 Assessment/Plan Additional Assessment/Plan Rehab- Myopathy Doing very well. Working towrds dc home with family tomorrow Congestive cardiac failure. Status post pneumonia with hypoxemic respiratory failure. Coronary artery disease status post stent placement x2.CARDIAC PRECAUTIONS, ASA/PLAVIX Essential hypertension. Integ- wound care DEYSI ANNA MD Oct 24, 2018 08:52
[2018-10-24] MEDS: ASPIRIN (EC) 81 MG TAB PO SCH (09:15)
[2018-10-24] MEDS: MAGNESIUM OXIDE 400 MG TAB PO SCH (09:15)
[2018-10-24] MEDS: CLOPIDOGREL 75 MG TAB PO SCH (09:16)
[2018-10-24] MEDS: DOCUSATE SODIUM 100 MG CAP PO SCH ×2 (09:16→20:15)
[2018-10-24] MEDS: METOPROLOL 25 MG TAB PO SCH ×2 (09:16→20:16)
[2018-10-24] MEDS: LORAZEPAM 0.5 MG TAB PO PRN (09:19)
[2018-10-24] MEDS: FELODIPINE (ER) 2.5 MG TAB PO SCH (09:19)
[2018-10-24] MEDS: LIDOCAINE 5% PATCH TD SCH (13:50)
[2018-10-24 14:00] VITALS: BP 125/60; PULSE 78; RESP 18
--- NOTE | 2018-10-24 18:57 | CONS ---
Assessment/Plan Assessment/Plan Hospital Course (Demo Recall) 1. 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 She is overall doing much better. She is now up walking with a walker. Her blood pressure is being monitored both sitting and standing and seems acceptable. She is now on the acute rehab unit and participating in the comprehensive rehabilitation program. She is going home tomorrow and her perscriptions have been written by me . 2. History of diastolic congestive heart failure. Now well compensated. Chest x-ray done yesterday shows improvement. 3. Pneumonia. Has resolved 4. Hypertension. Controlled 5. Type 2 diabetes mellitus. She is back on her oral diabetic medication. 6. Anemia of chronic disease 7. Rash on sacrum and left buttocks. Wound care nurse thinks that it may be herpes zoster. Patient denies pain. Rashes being covered with Allevyn 8. She complains of constipation. I will add some more stool softener. 9. CAD , s/p AMI , 2 stents placed . Consultation Date/Type/Reason Admit Date/Time Oct 15, 2018 at 11:22 Initial Consult Date Type of Consult Nephrology Date/Time of Note DATE: 10/24/18 TIME: 18:54 24 HR Interval Summary Free Text/Dictation She is feeling better and just took a shower . No CP or SOB . Constitutional: no complaints, improved Exam/Review of Systems Exam Vitals Vital Signs Date Temp Pulse Resp B/P (MAP) Pulse Ox O2 O2 Flow FiO2 Time Delivery Rate 10/24/18 98.2 78 18 125/60 99 Room Air 14:00 (81) Intake and Output 10/23/18 10/23/18 10/24/18 1515:00 23:00 07:00 IntakeIntake Total 300 ml 600 ml 400 ml BalanceBalance 300 ml 600 ml 400 ml Constitutional: alert, oriented, well developed Respiratory: clear to auscultation, normal air movement Cardiovascular: regular rate and rhythm Gastrointestinal: soft, non-tender Musculoskeletal: nl extremities to inspection Results Result Diagram: 10/21/1861810/21/18618 Results 24hrs Laboratory Tests Test 10/23/18 20:28 10/24/18 03:18 10/24/18 07:59 10/24/18 11:55 Bedside Glucose 205 130 149 134 Medications Medication Current Medications Magnesium Hydroxide (Milk Of Mag) 30 ml BID PRN PO CONSTIPATION Last administered on 10/19/18 06:25; Admin Dose 30 ML; Start 10/15/18 at 12:00 Bisacodyl (Dulcolax Supp) 10 mg DAILY PRN [place] CONSTIPATION; Start 10/15/18 at 12:00 Acetaminophen (Tylenol Tab) 650 mg Q4H PRN PO PAIN Last administered on 10/19/18at 00:41; Admin Dose 650 MG; Start 10/15/18 at 12:00 Miscellaneous Information (Pending [facility] Order For Wound Care) This patient salazar... PRN PRN XX WOUND CARE; Start 10/15/18 at 12:00 Miscellaneous Information 1 ea NOTE XX ; Start 10/15/18 at 12:30 Glucose (Glutose) 15 gm Q15M PRN PO DECREASED GLUCOSE; Start 10/15/18 at 12:30 Glucose (Glutose) 22.5 gm Q15M PRN PO DECREASED GLUCOSE; Start 10/15/18 at 12:30 Dextrose (D50w Syringe) 25 ml Q15M PRN IV DECREASED GLUCOSE; Start 10/15/18 at 12:30 Dextrose (D50w Syringe) 50 ml Q15M PRN IV DECREASED GLUCOSE; Start 10/15/18 at 12:30 Glucagon (Glucagen) 1 mg Q15M PRN IM DECREASED GLUCOSE; Start 10/15/18 at 12:30 Glucose (Glutose) 15 gm Q15M PRN BUCCAL DECREASED GLUCOSE; Start 10/15/18 at 12:30 Insulin Aspart (Novolog Insulin Pen) NOVOLOG *MODERATE* ALGORITHM WITH MEALS BEDTIME SC Last administered on 10/24/18at 08:03; Admin Dose 2 UNIT; Start 10/15/18 at 12:00 Aluminum Hydroxide (Aluminum Hydroxide) 30 ml Q4H PRN PO GASTROINTESTINAL UPSET; Start 10/15/18 at 12:30 Aspirin (Halfprin) 81 mg DAILY PO Last administered on 10/24/18at 09:15; Admin Dose 81 MG; Start 10/16/18 at 09:00 Bumetanide (Bumex) 2 mg DAILY@0600 PO Last administered on 10/24/18 06:10; Adm in Dose 2 MG; Start 10/16/18 at 06:00 Clopidogrel Bisulfate (plaVIX) 75 mg DAILY PO Last administered on 10/24/18at 09:16; Admin Dose 75 MG; Start 10/16/18 at 09:00 Famotidine (Pepcid) 20 mg AC BREAKFAST PO Last administered on 10/24/18 09:16; Admin Dose 20 MG; Start 10/16/18 at 07:05 Felodipine (Plendil) 2.5 mg DAILY PO Last administered on 10/24/18 09:19; Admin Dose 2.5 MG; Start 10/16/18 at 09:00 Guaifenesin/ Codeine Phosphate (Robitussin Ac Liquid Cup) 5 ml Q4H PRN PO cough; Start 10/15/18 at 12:30 Lidocaine (Lidoderm) 1 patch DAILY TD Last administered on 10/24/18 13:50; Admin Dose 1 PATCH; Start 10/16/18 at 09:00 Lorazepam (Ativan) 0.5 mg Q8H PRN PO ANXIETY Last administered on 10/24/18 09:19; Admin Dose 0.5 MG; Start 10/15/18 at 12:30 Magnesium Oxide (Mag-Ox 400) 400 mg DAILY PO Last administered on 10/24/18 09:15; Admin Dose 400 MG; Start 10/16/18 at 09:00 Metoprolol Tartrate (Lopressor) 25 mg BID PO Last administered on 10/24/18 09:16; Admin Dose 25 MG; Start 10/15/18 at 21:00 Oxycodone/ Acetaminophen (Percocet (5/ 325)) 1 tab Q4H PRN PO MODERATE to SEV PAIN; Start 10/15/18 at 12:30 Zolpidem Tartrate (Ambien) 5 mg HS PRN PO INSOMNIA Last administered on 10/22/18 23:40; Admin Dose 5 MG; Start 10/15/18 at 12:30 Eye Lubricant (Artificial Tears Oph) 2 drop Q6H PRN BOTH EYES DRY EYES Last administered on 10/23/18 21:37; Admin Dose 2 DROP; Start 10/16/18 at 04:30 Atorvastatin Calcium (Lipitor) 20 mg HS PO Last administered on 10/23/18 20:21; Admin Dose 20 MG; Start 10/18/18 at 21:00 Docusate Sodium (Colace) 100 mg Q12H PO Last administered on 10/24/18 09:16; Admin Dose 100 MG; Start 10/19/18 at 21:00 Metformin HCl (Glucophage Xr) 500 mg BID WITH MEALS PO Last administered on 10/24/18at 18:30; Admin Dose 500 MG; Start 10/21/18 at 08:24 Lactulose (Enulose) 20 gm DAILY PRN PO CONSTIPATION; Start 10/21/18 at 19:00 GENARO SEPULVEDA MD Oct 24, 2018 18:57
[2018-10-24] MEDS: ATORVASTATIN 20 MG TAB PO SCH (20:15)
[2018-10-24 20:17] VITALS: BP 123/54; PULSE 86; RESP 17
[2018-10-25 02:28] VITALS: BP 123/52; PULSE 84; RESP 18
[2018-10-25] MEDS: BUMETANIDE 1 MG TAB PO SCH (06:38)
[2018-10-25] MEDS: INSULIN ASPART [NOVOLOG] 3 ML PEN SC SCH ×2 (07:35→11:48)
[2018-10-25] MEDS: metFORMIN (XR) 500 MG TAB PO SCH (07:55)
[2018-10-25 07:56] VITALS: BP 137/63; PULSE 90; RESP 18
[2018-10-25] MEDS: DOCUSATE SODIUM 100 MG CAP PO SCH ×2 (09:00→10:59)
[2018-10-25] MEDS: ASPIRIN (EC) 81 MG TAB PO SCH (10:48)
[2018-10-25] MEDS: MAGNESIUM OXIDE 400 MG TAB PO SCH (10:50)
[2018-10-25] MEDS: CLOPIDOGREL 75 MG TAB PO SCH (10:50)
[2018-10-25] MEDS: LIDOCAINE 5% PATCH TD SCH (10:51)
[2018-10-25] MEDS: FELODIPINE (ER) 2.5 MG TAB PO SCH (10:51)
[2018-10-25] MEDS: METOPROLOL 25 MG TAB PO SCH (10:52)
--- NOTE | 2018-10-31 14:42 | DS ---
Date/Time of Note Date/Time of Note DATE: 10/31/18 TIME: 14:39 Discharge Summary Admission/Discharge Info Admit Date/Time Oct 15, 2018 at 11:22 Discharge Date/Time Oct 25, 2018 at 12:30 Discharge Diagnosis 1. Myopathy, improved 2. Congestive cardiac failure. 3. Status post pneumonia with hypoxemic respiratory failure. 4. Coronary artery disease status post stent placement x2. 5. Essential hypertension. 6. Improvements in self care and mobility Patient Condition: Good Hospital Course The patient was admitted for comprehensive interdisciplinary rehabilitation and made steady functional gains from a Mod level to a SBA level for self care tasks and mobility including ambulating over 200 feet with the use of a FWW. Patient is being discharged home with the recommendation of home health PT, OT and RN follow up. The DC meds are per the medication reconciliation sheet. The discharge equipment recommendations include: FWW, BSC, shower chair. The patient will follow up with PMD upon DC. Primary Care Provider MD WILFRIDO Sutton LIVA L. MD Oct 31, 2018 14:42
== END 2018-10-25 12:30 | disposition home health service (06) | DRG 91 ==
LOC: VRC 11:22
PROVIDERS: ADMIT Physical Medicine & Rehabilitation; ATTEND Internal Medicine
DX: G72.81 Critical illness myopathy (principal); J18.9 Pneumonia, unspecified organism; I50.30 Unspecified diastolic (congestive) heart failure; I25.10 Atherosclerotic heart disease of native coronary artery without angina pectoris; I11.0 Hypertensive heart disease with heart failure; D63.8 Anemia in other chronic diseases classified elsewhere; E11.9 Type 2 diabetes mellitus without complications; R21 Rash and other nonspecific skin eruption; Z95.5 Presence of coronary angioplasty implant and graft; Z87.01 Personal history of pneumonia (recurrent)
CPT/HCPCS: 71046; 80053; 81003; 82270; 82962; 83735; 84100; 85025; 87081; 87086; 97110; 97112; 97116; 97163; 97167; 97530; 97535; 97542; J1650; J1815; J2916

== ENCOUNTER → 2018-11-06 | Outpatient (CLI) | payer MEDICARE, OTHER | END | disposition home or self-care (01) | LOC: C/S 09:29 | PROVIDERS: ATTEND Internal Medicine | DX: R94.39 Abnormal result of other cardiovascular function study (principal); R07.9 Chest pain, unspecified | CPT/HCPCS: 74176 ==